=== PATIENT | female | born 2000 | race Caucasian/White ===

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

== ENCOUNTER 2019-04-05 16:55 | Emergency (ER) | payer MEDICAID, SELFPAY ==
[2019-04-05 16:56] VITALS: BP 145/69; PULSE 104; RESP 16; TEMP 36.9; O2SAT 98; BMI 25.9
--- NOTE | 2019-04-05 17:13 | CT_ITS ---
STUDY: CT ABDOMEN AND PELVIS WITHOUT CONTRAST REASON FOR EXAM: Female, 19 years old. Low abdominal/pelvic pain. Elevated white blood cell count. RADIATION DOSAGE (If Supplied By Facility): CTDIvol = ( 6.69 ) mGy, DLP = ( 344.48 ) mGycm TECHNIQUE: Transaxial images were obtained from the dome of the diaphragm to the symphysis pubis without oral contrast, and without intravenous contrast. Sagittal and coronal images were reconstructed. Individualized dose optimization techniques were used for this CT. COMPARISON: CT abdomen and pelvis with IV contrast December 11, 2014. FINDINGS: The visualized lung bases are unremarkable. The visualized portions of the heart are within normal limits. Normal liver. The portal vein diameter is 13.5 mm. Normal gallbladder and extrahepatic biliary system. There is borderline splenomegaly, measuring 13.15 x 5.7 x 1.4 cm. Normal pancreas. Normal bilateral adrenal glands. Normal right kidney. Normal left kidney. No hydronephrosis. Normal visualized stomach. Normal small intestine. Normal colon. The appendix is visualized and appears normal. There are numerous nonspecific mesenteric lymph nodes. Normal abdominal aorta. Normal inferior vena cava. Normal retroperitoneum. Normal urinary bladder. Normal visualized uterus. The right ovary/adnexa is mildly larger than the left, but no defined mass is evident. Normal abdominal wall. Normal osseous structures. CT/Abdomen/Pelvis without Cont IMPRESSION: Borderline splenomegaly, unchanged. Otherwise, normal unenhanced CT of the abdomen and pelvis. Electronically Signed: Pan Hunt MD at 19:12 EDT , Service support ,
[2019-04-05] MEDS: 0.9% Normal Saline 1,000 ML 125 ML IV (17:26)
[2019-04-05 17:30] VITALS: RESP 16
[2019-04-05 17:38] LABS: Absolute Lymphocyte Count 2.26 X10^3/uL (0.83-4.51); Absolute Neutrophil Count 8.8 X10^3/uL (2.0-7.7); Basophil# 0.06 X10^3/uL; Basophil% 0.5 % (0-1); Eosinophil# 0.53 X10^3/uL; Eosinophils% 4.1 % (0-5); Hematocrit 36.7 % (37-47); Hemoglobin 11.9 g/dL (12.0-15.0); Lymphocyte # 2.26 X10^3/ul (4.0); Lymphocyte % 17.5 % (19-41); Mean Corp Hgb Conc 32.4 g/dL (32-36); Mean Corpuscular Hgb 28.8 pg (27.0-32.0); Mean Corpuscular Volume 88.9 fL (81-99); Mean Platelet Vol. 12.1 fl (6.2-12.0); Monocyte# 1.24 X10^3/uL; Monocyte% 9.6 % (0-10); NRBC Flagged by Analyzer 0 % (0-5); Neutrophil # 8.78 X10^3/uL (2.7-7.7); Neutrophil % 67.8 % (47-70); Platelet Count 159 K/mm3 (150-450); RBC Distribution Width CV 13.4 % (11.6-14.6); RBC Distribution Width SD 43.6 fl (35.1-43.9); Red Blood Count 4.13 M/mm3 (4.2-5.4); White Blood Count 12.9 K/mm3 (4.4-11.0)
[2019-04-05 17:45] LABS: Anion Gap 4 (5-15); BUN 7 mg/dL (7-18); BUN/Creat Ratio 9.4 RATIO (10-20); Calcium,Total 8.7 mg/dL (8.5-10.1); Chloride 110 mmol/L (98-107); Creatinine, Serum 0.74 mg/dL (0.55-1.02); EST Glomerular Filtration Rate 105 mL/min (>60); Est Glom Filt Rate - Afr Amer 128 mL/min (>60); Estimated Creatinine Clearance 100.32 ml/min; Glucose 86 mg/dL (74-106); Potassium 3.7 mmol/L (3.5-5.1); Sodium Level 140 mmol/L (136-145)
--- NOTE | 2019-04-05 18:17 | ED.DCSUM_ITS ---
- ER Visit Summary Date of Service: 04/05/19 Chief Complaint: [Abdominal pain] History of Present Illness: The patient is a 19 F [the emergency department with continuous abdominal pain for about a week. Patient describes pain in his lower abdomen and severe at times. She has had some hematuria yesterday. Patient complains of pressure to the lower abdomen. She does not believe that she is given that she has implantable control in her arm. Patient last menstrual period was about a month ago. She denies any fever. She had nausea but no vomiting. She denies any diarrhea. She denies any blood in her stool or black tarry stool. States the pain radiates to the back.] Denies any abnormal vaginal discharge. Physical Examination: [HEENT-PERRLA, EOMI. Cranial nerves II through XII grossly intact. TMs clear. Mucous membranes moist. No adenopathy. Cardiovascular-regular rate and rhythm without murmur or ectopy Lungs-clear to auscultation, chest wall stable without crepitus or subcu emphysema Abdomen-normoactive bowel sounds, soft. Patient has tenderness diffusely to the lower abdomen right lower quadrant suprapubic and left lower quadrant. Patient has bilateral CVA tenderness on exam. Skin exam-patient has some patchy discoloration loss of pigment to the upper arms and chest that she is had for about a year since being . Extremities-intact ?4, normal range of motion, normal pulses, atraumatic] Test Results: [CBC with differential obtained showed a slightly elevated white blood cell count of 12.9, hemoglobin 11.9, hematocrit 37, plates 159. Chemistries unremarkable.] hCG was unremarkable. CT flank showed nothing acute. Urinalysis was positive for 500 leukocyte esterase and greater than 100 WBCs as well as +3 bacteria. Emergency Department Course and Treatment: [She received 1 g of Rocephin IV.] Treatment Plan: [She will be treated with Bactrim and Pyridium. I will write her for nystatin cream as I suspect she may have tinea versicolor versus possible vitiligo. Patient will be referred to a architecture professor.] Disposition: [Discharged home in stable condition.] Impression: [UTI Dermatitis-tinea versus vitiligo] This note was generated with [employer] software. It may contain incorrect words, spelling, and punctuation that were not noted in review of the chart prior to signing ED Disposition - Plan for ED Patient: Referrals: Care Physician,No Primary [Primary Care Provider] -
[2019-04-05 18:29] LABS: Internal QC Validated? YES +Cl - CLEAR BKGD; Pregnancy, Serum, hCG Quali. NEGATIVE Negative
[2019-04-05 18:50] LABS: Mucous, Urine 0 SEEN /hpf (<or=2+)
[2019-04-05 18:52] LABS: Color, Urine Yellow (Yellow); Glucose, Dipstick Normal (Normal); Ketone-Dipstick Negative (Negative); Leukocyte Esterase-Dipstick 500 /ul (Negative); Nitrite-Dipstick Negative (Negative); Occult Blood-Urine 50 /ul (Negative); Protein-Dipstick 30 mg/dl (Negative); Urine Bilirubin Dipstick Negative (Negative); Urine Clarity Cloudy (Clear); Urine Urobilinogen Normal (Normal)
[2019-04-05 19:17] VITALS: BP 100/69; PULSE 88; RESP 16; O2SAT 95
[2019-04-05 19:19] LABS: White Blood Cells >100 SEEN /hpf (0-5)
[2019-04-05 19:20] LABS: Red Blood Cells-Urine 5-10 SEEN /hpf (0-5); Squamous Epithelial Cells - UA 25-50 SEEN /hpf (5-10)
[2019-04-05 19:21] LABS: Bacteria 3+ /hpf (None Seen)
--- NOTE | 2019-04-05 19:41 | ED.DEP ---
ED Disposition - Plan for ED Patient: Instructions: Bladder Infection, Female (Adult), Tinea Versicolor Prescriptions: Smz/Tmp Ds [Bactrim Ds] 1 tab PO BID #10 tab Prescription Printed Nystatin/Triamcin [Nystatin-Triamcinolone Ointm] 60 gm TP BID #1 oint...g. Prescription Printed Phenazopyridine HCl [Pyridium] 200 mg PO BID PRN PRN #10 tab PRN Reason: Pain Prescription Printed Referrals: Care Physician,No Primary [Primary Care Provider] - Isaiah Marti MD [STAFF PHYSICIAN] - 5-7 Days Martín Butt MD [STAFF PHYSICIAN] - 5-7 Days
[2019-04-05] MEDS: Smz/Tmp Ds Tablet 1 TABLET PO (19:58)
[2019-04-05] MEDS: Phenazopyridine 95 MG Tablet 190 MG PO (19:59)
[2019-04-05 20:00] VITALS: BP 107/63; PULSE 104; O2SAT 98
== END 2019-04-05 20:07 | disposition home or self-care (01) ==
PROVIDERS: Emergency Provider Emergency Medicine
DX: N39.0 Urinary tract infection, site not specified (principal); B36.0 Pityriasis versicolor
CPT/HCPCS: 74176; 80048; 81001; 84703; 85025; 96360; 96361; 99285; J7030

== ENCOUNTER 2019-11-28 14:39 | Emergency (ER) | payer MEDICAID, SELFPAY ==
[2019-11-28 14:40] VITALS: BP 115/75; PULSE 117; RESP 16; TEMP 36.6; O2SAT 97; BMI 24.7
--- NOTE | 2019-11-28 14:55 | ED.DCSUM_ITS ---
- ER Visit Summary Date of Service: 11/28/19 Chief Complaint: Axillary abscess History of Present Illness: The patient is a 19 F who presents with a lump in her right axilla. She states that she has had a lump there but today it was painful. She got some drainage out of it. It was white. It is painful when she moves her arm. She denies a fever. She has no history of abscesses in the past. She has no other medical problems. Physical Examination: Vital signs are reviewed. Right axilla shows a 1.5 x 1 cm abscess. It is fluctuant. There is no surrounding erythema. She has full range of motion of the arm. Rest of the physical exam is unremarkable Test Results: None performed Emergency Department Course and Treatment: Patient had incision and drainage of the abscess. The area was cleansed with chlorhexidine. 3 cc of lidocaine with epinephrine was used in a field block. A cruciate incision was made over the dome of the abscess. Mild purulent drainage returned. Loculations were broken up. A bloody drainage then returned after this. Treatment Plan: Patient will have a dressing placed on the wound. I will give her Bactroban cream to place on this area. She will keep the area clean and dry and will follow up with her doctor Disposition: Discharge Impression: Right axillary abscess, 1.5 x 1 cm I&D by ED physician This note was generated with [employer] dictation software. It may contain incorrect words, spelling, and punctuation that were not noted in review of the chart prior to signing ED Disposition - Plan for ED Patient: Disposition: Home or Assisted Living Instructions: ED Abscess Incision And Drainage Prescriptions: Mupirocin [Bactroban] 1 applic TOPICAL BID #1 tube Transmission Status: Pending to [facility] #30 Referrals: Care Physician,No Primary [Primary Care Provider] -
== END 2019-11-28 15:12 | disposition home or self-care (01) ==
LOC: ED 15:02
PROVIDERS: Emergency Provider Emergency Medicine
DX: L02.411 Cutaneous abscess of right axilla (principal); Z72.0 Tobacco use
CPT/HCPCS: 10060; 99283

== ENCOUNTER 2019-11-29 13:40 | Emergency (ER) | payer MEDICAID, SELFPAY ==
[2019-11-28 14:40] VITALS: BMI 24.7
[2019-11-29 13:41] VITALS: BP 127/65; PULSE 72; PULSE 88; RESP 15; TEMP 36.7; O2SAT 98; BMI 26.0
--- NOTE | 2019-11-29 14:06 | ED.VIS.GEN ---
History of Present Illness Chief Complaint: Abscess Informant: Patient Onset: Days Context: Gradual Onset Current Severity: Moderate Maximum Severity: Moderate Narrative: Patient presents for abscess to the right axilla. She was seen yesterday and had an I&D performed. She was given Bactroban ointment to place topically. Patient presents back today stating that she has not noted any improvement in it. She is requesting a work note for today. She denies fever or chills. She is using warm compresses. - Past Medical History (1) Depression with anxiety Status: Chronic (2) ADHD Status: Chronic (3) Asthma Status: Chronic Past Medical History - Allergies and Home Meds Allergies/Adverse Reactions: Allergies No Known Allergies Allergy (Verified 11/29/19 13:40) Primary Care Physician: Care Physician,No Primary [Primary Care Provider] - Prior records reviewed: Yes Smoking Status: Current every day smoker Review of Systems General: Denies: Chills, Fever Eyes: Denies: Visual changes - bilaterally ENT: Denies: Bilateral ear pain Cardiovascular: Denies: Chest pain Respiratory: Denies: Dyspnea, Cough Gastrointestinal: Denies: Abdominal pain, Nausea, Vomiting, Diarrhea Musculoskeletal: Reports: Swelling Skin: Reports: Abscess Neurological: Denies: Headache Hematologic: Denies: Easy bruising, Easy bleeding Allergy: Denies: Uticaria Physical Exam Vital Signs/Narrative: Vital Signs Temp Pulse Resp BP Pulse Ox 11/29/19 13:41 98.1 F 88 15 127/65 H 98 General: Well nourished ENT: Moist mucous membranes Neck: Supple Cardiovascular: Regular rate, Regular rhythm Respiratory: No distress, CTA bilaterally Abdomen: Soft, Nontender Skin: - - 1.5 x 2 cm cutaneous abscess right axilla. There is spontaneous drainage of serosanguineous fluid. No overlying skin changes. Neurological: Alert, Oriented x3 Psychological: Normal affect Diagnostic/Tx/Re-eval - Medical Decision Making Although the patient's medication list does report that she is taking oral Bactrim she denies that she is taking oral antibiotics. She is using the topical Bactroban ointment only. She is advised to continue using warm compresses. I will cover her with Bactrim and Keflex to try to encourage the abscess to drain. ED Disposition - Plan for ED Patient: Disposition: Home or Assisted Living Diagnosis: Cutaneous abscess Instructions: ED Abscess Antibiotic Treatment Only Prescriptions: Smz/Tmp Ds [Bactrim Ds] 1 tab PO BID #20 tab Transmission Status: Pending to [facility] #30 Cephalexin [Keflex] 500 mg PO Q6 #40 cap Transmission Status: Pending to [facility] #30 Referrals: Nate Prater DO [NON CLINICAL AFFILIATE] - 1 Week
[2019-11-29] MEDS: Smz/Tmp Ds Tablet 1 TABLET PO (14:15)
[2019-11-29] MEDS: Cephalexin 250 MG Capsule 500 MG PO (14:15)
== END 2019-11-29 14:28 | disposition home or self-care (01) ==
LOC: ED 14:20
PROVIDERS: Emergency Provider Emergency Medicine
DX: L02.411 Cutaneous abscess of right axilla (principal); J45.909 Unspecified asthma, uncomplicated; F90.9 Attention-deficit hyperactivity disorder, unspecified type; F41.8 Other specified anxiety disorders; F17.210 Nicotine dependence, cigarettes, uncomplicated; Z79.899 Other long term (current) drug therapy
CPT/HCPCS: 99283

== ENCOUNTER 2020-01-08 11:31 | Emergency (ER) | payer MEDICAID, SELFPAY ==
[2020-01-08 11:32] VITALS: BP 128/77; PULSE 88; RESP 16; TEMP 36.8; O2SAT 96; BMI 23.1
--- NOTE | 2020-01-08 11:42 | RAD_ITS ---
STUDY: X-RAY - RIGHT HAND, ATTENTION 5 FINGER REASON FOR EXAM: Female, 19 years old. PT SLAMMED PINKY IN CAR DOOR, SWELLING TECHNIQUE: 3 view(s) of the finger were obtained. COMPARISON: None. FINDINGS: Normal metacarpal head. Normal metacarpophalangeal joint. Normal proximal phalanx. Normal middle phalanx. There is a subtle nondisplaced corner fracture on the volar side of the distal phalanx with soft tissue edema. Normal proximal interphalangeal joint. Normal distal interphalangeal joint. RAD/Finger(s) Min 2 Views IMPRESSION: There is a subtle nondisplaced corner fracture on the volar side of the distal phalanx with soft tissue edema. Electronically Signed: Grace Richey MD at 13:43 EDT Tel , Service support ,
--- NOTE | 2020-01-08 11:43 | RAD_ITS ---
STUDY: X-RAY CHEST REASON FOR EXAM: Female, 19 years old. COUGH, FEVER, BODY ACHES X 1 WEEK TECHNIQUE: Single AP portable view of the chest. COMPARISON: 07/26/2016 chest x-ray FINDINGS: The lungs are clear and expanded. There is no demonstrated pleural abnormality. Normal size heart. Normal mediastinum and kevin. Normal visualized pulmonary arteries. Normal visualized aortic arch and descending thoracic aorta. Normal visualized thoracic spine. Normal visualized ribs, clavicles, and shoulders. There is no demonstrated abnormality of the visualized soft tissue structures of the upper abdomen. RAD/Chest 1 View (Portable) IMPRESSION: Normal x-ray examination of the chest. Electronically Signed: Grace Richey MD at 13:35 EDT Tel , Service support ,
--- NOTE | 2020-01-08 11:43 | ED.VIS.GEN ---
History of Present Illness Chief Complaint: Upper Extremity Injury Onset: Yesterday Context: Sudden Onset - Accidentally slammed in car door Timing: Continuous Quality: Sore Location: Right pinky finger Current Severity: Moderate Maximum Severity: Severe Worsened by: Moving, palpating Relieved by: Remaining still and leaving it alone Narrative: Patient states she is here for her right small finger injury in addition to respiratory illness. She states for 1 week, she has had cough, subjective fevers and chills, myalgias, headaches, sore throat mostly from coughing, and shortness of breath for the entire week. The shortness of breath is not necessarily worsening, but it is not improving. It does feel like wheezing when she has it. States that she had asthma as a child but does not have any major issues with it. She did lose her sense of smell early on in the illness, but states that has recovered. She has not been tested for coronavirus or had contact with anyone that she knows of that has been infected with it, but she does present during the national coronavirus emergency declaration/pandemic. - Past Medical History (1) Asthma Status: Chronic (2) Depression with anxiety Status: Chronic (3) ADHD Status: Chronic Past Medical History - Allergies and Home Meds Allergies/Adverse Reactions: Allergies No Known Allergies Allergy (Verified 01/08/20 11:34) Primary Care Physician: Care Physician,No Primary [Primary Care Provider] - Smoking Status: Current every day smoker Review of Systems General: Reports: Fever, Malaise, Subjective. Denies: Chills, Sweats Eyes: Denies: Visual changes - bilaterally, Diplopia ENT: Reports: Rhinorrhea - And congestion, which is improved now, Sore throat. Denies: Bilateral ear pain Cardiovascular: Denies: Chest pain, Palpitations Respiratory: Reports: Dyspnea, Cough, Sputum - Occasional mild amounts of clear sputum. Denies: Orthopnea Gastrointestinal: Reports: Nausea. Denies: Abdominal pain, Vomiting, Diarrhea, Melena, Hematochezia Genitourinary: Denies: Dysuria, Hematuria, Frequency Musculoskeletal: Reports: Myalgias, Back pain. Denies: Neck pain, Swelling Skin: Denies: Rash, Wounds Neurological: Reports: Headache. Denies: Weakness, Parasthesia, Numbness Physical Exam Vital Signs/Narrative: Vital Signs Temp Pulse Resp BP Pulse Ox 01/08/20 11:32 98.2 F 88 16 128/77 H 96 Inital Vital Signs reviewed: Yes General: Well nourished, Well developed, No Acute Distress - Conversive in full sentences Head: Normocephalic, Atraumatic Eyes: Perrl, EOMI ENT: Moist mucous membranes, No rhinorrhea, TM's clear. Negative for: Sinus tenderness Neck: Supple, Nontender Cardiovascular: Regular rate, Regular rhythm, No murmurs Respiratory: No distress, Chest nontender, Wheezing - slight basilar inspiratory wheezes. Negative for: Rales, Rhonchi Abdomen: Soft, Nontender, Nondistended, Normal bowel sounds Back: Nontender, Normal Inspection. Negative for: CVA tenderness Extremities: Nontender, No edema Skin: Normal color, No rash, No Trauma Neurological: Alert, Oriented x3, Cranial nerves II-XII grossly intact, Normal Strength, Normal Sensation, Normal Gait Psychological: Normal affect, Normal Mood Diagnostic/Tx/Re-eval - Medical Decision Making On my interpretation, 1 view chest x-ray is normal. On my interpretation, 3 view x-ray of the right little finger is normal. Her fingers were ashley taped, she was given an ice pack, ibuprofen, and we sent off a COVID-19 swab. And appropriate instructions for quarantine until her test results return. ED Disposition - Plan for ED Patient: Disposition: Home or Assisted Living Diagnosis: Viral URI, Contusion of right little finger without damage to nail, initial encounter Instructions: ED CONTUSION Finger, ED URI Viral Prescriptions: Albuterol Inhaler [Ventolin Hfa] 1 - 2 puff INHALATION Q4H PRN PRN #1 inhaler PRN Reason: Wheezing Transmission Status: Pending to [facility] #30 Referrals: Doctor,Your [STAFF PHYSICIAN] - As Needed Additional Instructions: You were tested for COVID-19, however it is sent to an offsite laboratory, and will likely take a couple days to come back. When the results return you should receive a call from the emergency department. Reference the pamphlet including with your discharge papers for information on setting up an online portal account to check the results yourself.
[2020-01-08] MEDS: Ibuprofen 600 MG Tablet PO (12:27)
[2020-01-08 16:06] LABS: Probe Check PASS; Specimen Processing Control PASS
== END 2020-01-08 12:31 | disposition home or self-care (01) ==
LOC: ED 12:22
PROVIDERS: Emergency Provider Emergency Medicine
DX: S60.051A Contusion of right little finger without damage to nail, initial encounter (principal); W23.0XXA Caught, crushed, jammed, or pinched between moving objects, initial encounter; Y93.9 Activity, unspecified; Y92.9 Unspecified place or not applicable; J06.9 Acute upper respiratory infection, unspecified; J45.909 Unspecified asthma, uncomplicated; F17.200 Nicotine dependence, unspecified, uncomplicated
CPT/HCPCS: 71045; 73140; 87635; 99283; U0003

== ENCOUNTER 2020-09-27 15:36 | Emergency (ER) | payer MEDICAID, SELFPAY ==
[2020-09-27 15:37] VITALS: BP 142/80; PULSE 92; RESP 14; TEMP 36.3; O2SAT 99; BMI 24.5
--- NOTE | 2020-09-27 16:31 | EKG12_ITS ---
Test Reason : GENERAL Blood Pressure : / mmHG Vent. Rate : 055 BPM Atrial Rate : 055 BPM P-R Int : 144 ms QRS Dur : 088 ms QT Int : 406 ms P-R-T Axes : 058 089 068 degrees QTc Int : 388 ms Sinus bradycardia with sinus arrhythmia Otherwise normal ECG Confirmed by MANE CLEMONS, FELICIA ([id number]), marketing editor LIDIA GARCIA ([id number]) on 09/29/2020 8:11:49 AM Referred By: AVI Confirmed By:GRAYSON GILLIAM MD
--- NOTE | 2020-09-27 16:31 | ED.VIS.GEN ---
History of Present Illness Chief Complaint: General Illness Informant: Patient Narrative: 20-year-old female presenting with chest pain which is intermittent over the last 3 days. She also complains of some mild shortness of breath and a cough. She has body aches and loss of smell with nasal burning with inhalation. She does not state that she has lost her sense of taste. She has a decreased appetite. She was exposed to her aunt about 7 days ago who was tested for COVID-19 and states that she had 5 of the symptoms of Covid. Patient states he has not checked to see if she had a fever at home. She states that she has a family history of HOCM but she does not have this. She has not been syncopal or near syncopal. Patient was sent to the ER due to family history of HOCM. Patient herself denies any medical problems set for asthma. She states she is not on control and she has no concern for and is not sexually active. She has no urinary complaints. She is making normal urine and stool. Past Medical History - Allergies and Home Meds Allergies/Adverse Reactions: Allergies No Known Allergies Allergy (Verified 09/27/20 15:39) Primary Care Physician: Care Physician,No Primary [Primary Care Provider] - Past Medical History: - - Asthma Surgical History: noncontributory Lives: Alone Smoking Status: Current every day smoker Alcohol: None Drugs: None Review of Systems General: Reports: Chills, Malaise, Subjective Eyes: Denies: Visual changes - bilaterally, Diplopia ENT: Reports: - - Loss of smell. Denies: Rhinorrhea, Sore throat Cardiovascular: Reports: Chest pain. Denies: Palpitations, Heart racing Respiratory: Reports: Dyspnea, Cough Gastrointestinal: Denies: Abdominal pain, Nausea, Vomiting Genitourinary: Denies: Dysuria, Hematuria Musculoskeletal: Reports: Myalgias. Denies: Arthralgias, Neck pain Skin: Denies: Rash, Abscess Neurological: Reports: Headache. Denies: Weakness, Parasthesia, Numbness Psych: Denies: Depression, Anxiety Physical Exam Vital Signs/Narrative: Vital Signs Temp Pulse Resp BP Pulse Ox 09/27/20 15:37 97.3 F L 92 14 142/80 H 99 Inital Vital Signs reviewed: Yes General: Well nourished, No Acute Distress Head: Normocephalic, Atraumatic Eyes: Perrl, EOMI ENT: Moist mucous membranes, TM's clear, Sinus tenderness Neck: Supple, Nontender Cardiovascular: Regular rate, Regular rhythm Respiratory: No distress, CTA bilaterally, Chest nontender Extremities: Nontender, No edema Skin: Normal color, No rash. Negative for: Cyanosis, Diaphoresis, Pallor Neurological: Alert, Oriented x3, Cranial nerves II-XII grossly intact Psychological: Normal affect, Normal Mood Diagnostic/Tx/Re-eval Clinical Impression(s) from Imaging Studies Chest X-Ray 09/27/20 16:50 IMPRESSION: No acute radiographic abnormalities. Electronically Signed: Shawn Lai MD at 17:24 EDT Tel , Service support , Laboratory Data 09/27/20 09/27/20 09/27/20 16:54 16:54 16:54 WBC 9.5 RBC 4.95 Hgb 14.1 Hct 45.0 MCV 90.9 MCH 28.5 MCHC 31.3 L RDW Std Deviation 42.7 RDW Coeff of Melchor 12.7 Plt Count 198 MPV 12.2 H Immature Gran % (Auto) 0.200 Neut % (Auto) 51.4 Lymph % (Auto) 36.2 [place] % (Auto) 5.3 Eos % (Auto) 6.4 H Baso % (Auto) 0.5 Absolute Neuts (auto) 4.9 Absolute Lymphs (auto) 3.43 Nucleated RBC % 0 D-Dimer Quant (PE/DVT) <= 0.27 Sodium 139 Potassium 3.7 Chloride 105 Carbon Dioxide 30.0 Anion Gap 4 L BUN 9 Creatinine 0.89 Estim Creat Clear Calc 86.34 Est GFR (MDRD) Af Amer 103 Est GFR (MDRD) Non-Af 85 BUN/Creatinine Ratio 10.2 Glucose 73 L Calcium 9.3 Total Bilirubin 0.30 AST 8 L ALT 19 Alkaline Phosphatase 69 Total Protein 7.2 Albumin 4.0 Globulin 3.2 Albumin/Globulin Ratio 1.2 Procalcitonin 09/27/20 16:54 WBC RBC Hgb Hct MCV MCH MCHC RDW Std Deviation RDW Coeff of Melchor Plt Count MPV Immature Gran % (Auto) Neut % (Auto) Lymph % (Auto) [place] % (Auto) Eos % (Auto) Baso % (Auto) Absolute Neuts (auto) Absolute Lymphs (auto) Nucleated RBC % D-Dimer Quant (PE/DVT) Sodium Potassium Chloride Carbon Dioxide Anion Gap BUN Creatinine Estim Creat Clear Calc Est GFR (MDRD) Af Amer Est GFR (MDRD) Non-Af BUN/Creatinine Ratio Glucose Calcium Total Bilirubin AST ALT Alkaline Phosphatase Total Protein Albumin Globulin Albumin/Globulin Ratio Procalcitonin < 0.01 - Medical Decision Making Presenting with viral syndrome however she has stated she is having chest pain. EKG performed on arrival is sinus rhythm at 55 bpm without signs of ischemic change as interpreted by myself. Patient is PERC negative however given concern for Covid I will check a D-dimer. Chest x-ray as interpreted by myself shows no acute cardiopulmonary process. Radiology does agree. Blood work thus far is unremarkable and include CBC, CMP, troponin. D-dimer is pending. 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 She states she has to leave [facility]. Patient counseled that I do not have all of her results back. She will sign AMA paperwork she understands that she may have , disability, poor outcome should there be abnormal findings. She acknowledges understanding. She was able to sign paperwork prior to leaving. Patient's lab work-up mainly was unremarkable. Her D-dimer was negative. Her Covid 19 antigen was negative. Cardiac enzymes were normal. I Impression: 1. Chest pain 2. Viral syndrome ED Disposition - Plan for ED Patient: Disposition: Home or Assisted Living Instructions: Coronavirus Disease 2019 (COVID-19): Overview, Coronavirus Disease 2019 (COVID-19): Caring for Yourself or Others, ED Chest Pain, Uncertain Cause Referrals: Care Physician,No Primary [Primary Care Provider] -
--- NOTE | 2020-09-27 16:50 | RAD_ITS ---
INDICATION: cough EXAMINATION/TECHNIQUE: X-RAY - XR Chest 1 View COMPARISON: 01/08/2020. FINDINGS: The lungs are clear. The cardiomediastinal silhouette is unremarkable. No pleural effusion or pneumothorax. No acute osseous abnormalities. RAD/Chest 1 View (Portable) IMPRESSION: No acute radiographic abnormalities. Electronically Signed: Shawn Lai MD at 17:24 EDT Tel , Service support ,
[2020-09-27 17:14] LABS: Absolute Lymphocyte Count 3.43 X10^3/uL (0.83-4.51); Absolute Neutrophil Count 4.9 X10^3/uL (2.0-7.7); Basophil# 0.05 X10^3/uL; Basophil% 0.5 % (0-1); Eosinophil# 0.61 X10^3/uL; Eosinophils% 6.4 % (0-5); Hemoglobin 14.1 g/dL (12.0-15.0); Lymphocyte # 3.43 X10^3/ul (0.83-4.51); Lymphocyte % 36.2 % (19-41); Mean Corp Hgb Conc 31.3 g/dL (32-36); Mean Corpuscular Hgb 28.5 pg (27.0-32.0); Mean Corpuscular Volume 90.9 fL (81-99); Mean Platelet Vol. 12.2 fl (6.2-12.0); Monocyte% 5.3 % (0-10); NRBC Flagged by Analyzer 0 % (0-5); Neutrophil # 4.86 X10^3/uL (2.7-7.7); Neutrophil % 51.4 % (47-70); Platelet Count 198 K/mm3 (150-450); RBC Distribution Width CV 12.7 % (11.6-14.6); RBC Distribution Width SD 42.7 fl (35.1-43.9); Red Blood Count 4.95 M/mm3 (4.2-5.4); White Blood Count 9.5 K/mm3 (4.4-11.0)
[2020-09-27 17:29] LABS: ALB/GLOB Ratio 1.2 RATIO (0.9-2.4); AST(SGOT) 8 U/L (15-37); Alanine Aminotransfer ALT/SGPT 19 U/L (13-56); Alkaline Phosphatase 69 U/L (45-117); Anion Gap 4 (5-15); BUN 9 mg/dL (7-18); BUN/Creat Ratio 10.2 RATIO (10-20); Calcium,Total 9.3 mg/dL (8.5-10.1); Chloride 105 mmol/L (98-107); Creatinine, Serum 0.89 mg/dL (0.55-1.02); EST Glomerular Filtration Rate 85 mL/min (>60); Est Glom Filt Rate - Afr Amer 103 mL/min (>60); Estimated Creatinine Clearance 86.34 ml/min; Globulin 3.2 g/dL (2.2-4.2); Glucose 73 mg/dL (74-106); Potassium 3.7 mmol/L (3.5-5.1); Protein, Total 7.2 g/dL (6.4-8.2); Sodium Level 139 mmol/L (136-145)
[2020-09-27 17:43] LABS: D-Dimer Quantitative (DVT/PE) <= 0.27 FEU/ug/m (0.27-0.49)
[2020-09-27 17:44] LABS: Procalcitonin < 0.01 ng/mL (0.00-0.09)
--- NOTE | 2020-09-27 17:48 | ED.RN ---
pt signed ama. aware covid is negative.
[2020-09-27 17:49] VITALS: PULSE 62; RESP 18
== END 2020-09-27 17:49 | disposition home or self-care (01) ==
PROVIDERS: Emergency Provider Student in an Organized Health Care Education/Training Program
DX: R07.89 Other chest pain (principal); B34.9 Viral infection, unspecified; R06.00 Dyspnea, unspecified; R05 Cough; R51.9 Headache, unspecified; M79.10 Myalgia, unspecified site; R43.9 Unspecified disturbances of smell and taste; J45.909 Unspecified asthma, uncomplicated; F17.200 Nicotine dependence, unspecified, uncomplicated
CPT/HCPCS: 71045; 80053; 84145; 85025; 85379; 87040; 87426; 93005; 99284

== ENCOUNTER 2020-10-18 15:52 | Emergency (ER) | payer MEDICAID, SELFPAY ==
[2020-10-18 15:53] VITALS: BP 118/63; PULSE 70; RESP 14; TEMP 36.7; O2SAT 98; BMI 23.7
--- NOTE | 2020-10-18 16:18 | EDS_ITS ---
HPI HPI - Female History of Present Illness Chief Complaint: Vag Bld, Preg Informant: patient Pain Pain: Positive for Pelvic Pain Timing: Waxes and wanes Quality: Positive for Cramping Location: Suprapubic Worsened by: - (Nothing) Relieved by: - Bleeding Issue: Positive for Vaginal bleeding Onset: Days (2) Context: Gradual Onset Timing: Waxes and wanes Current Severity: Spotting Associated Symptoms Associated Symptoms: Positive for Frequency; Negative for Dysuria Test: Positive Sexually: Positive for Active Control: No control PFSH PFSH Home Medications NK 10/18/20 [History Last Taken Unknown] Allergy/AdvReac Type Severity Reaction Status Date / Time No Known Allergies Allergy Verified 10/18/20 15:53 Surgical History (Updated 10/18/20 @ 16:[address] Luis Armando Becerril DO) History of tonsillectomy Social History Smoking Status: Current every day smoker ROS ROS ED Constitutional Constitutional ED: Denies chills or fever(s) Eyes Eyes: Denies blurry vision or change in vision ENT ENT ED: Denies rhinorrhea or sore throat Cardiovascular Cardiovascular: Denies chest pain or palpitations Respiratory/Chest Respiratory/Chest: Denies cough or dyspnea Gastrointestinal Gastrointestinal: Reports nausea and vomiting Genitourinary Genitourinary ED: Reports urinary frequency; Denies dysuria Integumentary Denies abscess or rash Neurologic Neurologic: Denies headache(s) or weakness Allergic/Immunologic Allergic/Immunologic ED: Denies mouth swelling or urticaria EXAM Physical Exam Const Vital Signs: 10/18/20 15:53 Temperature 98.0 F Temperature Source Temporal Pulse Rate 70 Respiratory Rate 14 Blood Pressure 118/63 Blood Pressure Mean 81 Pulse Ox 98 Oxygen Delivery Method Room Air Positive well nourished and well developed General Appearance ED: well developed HEENT Reports moist mucous membranes Neck supple and no JVD Resp normal respiratory effort and clear to auscultation bilaterally Cardio regular rate and regular rhythm GI normal to inspection, nondistended, normoactive bowel sounds and soft to palpation Palpation: tender suprapubic; Negative for guarding Extremity normal to inspection and full ROM General Extremety ED: Negative for edema or tenderness General Extremity: Negative for edema Neuro oriented x3, CN's II-XII intact bilaterally and no sensory deficits noted Sensorium / Orientation: alert Motor Exam: strength 5/5 throughout MDM MDM MDM Narrative Medical decision making narrative: Urinalysis shows leukocyte esterase of 100 with 10-25 epithelial cells. There is no evidence of urinary tract infection. Quantitative hCG was negative. Patient was advised of her findings. Patient was instructed to follow-up with her primary care physician in 5 to 7 days. Patient understood and was agreeable with the plan. All questions were answered. Lab Data Labs: Laboratory Results - last 24 hr 10/18/20 10/18/20 16:10 16:36 HCG, Quant < 1 Urine Color Yellow Urine Clarity Clear Urine pH 6.0 Ur Specific [place] 1.015 Urine Protein Negative Urine Glucose (UA) Normal Urine Ketones Negative Urine Occult Blood 50 H Urine Nitrite Negative Urine Bilirubin Negative Urine Urobilinogen Normal Ur Leukocyte Esterase 100 H Urine RBC 0-5 SEEN Urine WBC 0-5 SEEN Ur Squamous Epith Cells 10-25 SEEN Urine Bacteria RARE Urine Mucus 0 SEEN Discharge Plan Triage Chief Complaint: Vag Bld, Preg ED Provider: Luis Armando Becerril Dx/Rx/DC Orders Clinical Impression: Crampy pain associated with menses Instructions: ED MENSTRUAL CRAMPING Prescriptions: No Action NK RF: 0 Primary Care Provider: Care Physician,No Primary Referrals: Daniel Guerrero MD [STAFF PHYSICIAN] - 5-7 Days Care Physician,No Primary [Primary Care Provider] - Disposition Disposition: Home, self care
[2020-10-18 16:26] LABS: Mucous, Urine 0 SEEN /hpf (<or=2+)
[2020-10-18 16:29] LABS: Color, Urine Yellow (Yellow); Glucose, Dipstick Normal (Normal); Ketone-Dipstick Negative (Negative); Leukocyte Esterase-Dipstick 100 /ul (Negative); Nitrite-Dipstick Negative (Negative); Occult Blood-Urine 50 /ul (Negative); Protein-Dipstick Negative (Negative); Specific Gravity, Urine 1.015 (1.002-1.030); Urine Bilirubin Dipstick Negative (Negative); Urine Clarity Clear (Clear); Urine Urobilinogen Normal (Normal)
[2020-10-18 16:34] LABS: Bacteria RARE /hpf (None Seen); Red Blood Cells-Urine 0-5 SEEN /hpf (0-5); Squamous Epithelial Cells - UA 10-25 SEEN /hpf (5-10); White Blood Cells 0-5 SEEN /hpf (0-5)
[2020-10-18] MEDS: 0.9% Normal Saline 1,000 ML 1000 ML IV (16:59)
[2020-10-18 17:33] LABS: hCG Titer Quant., Serum < 1 mIU/mL (1-3)
[2020-10-18 18:01] VITALS: BP 120/54; PULSE 80; RESP 16; O2SAT 100
== END 2020-10-18 18:04 | disposition home or self-care (01) ==
PROVIDERS: Emergency Provider Emergency Medicine
DX: N94.6 Dysmenorrhea, unspecified (principal); F17.200 Nicotine dependence, unspecified, uncomplicated
CPT/HCPCS: 81001; 84702; 86900; 86901; 96360; 99282; J7030; A4216

== ENCOUNTER 2021-01-05 10:54 | Emergency (ER) | payer MEDICAID, SELFPAY ==
[2021-01-05 10:55] VITALS: BP 149/88; PULSE 98; RESP 16; TEMP 35.1; O2SAT 98; BMI 22.6
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
[2021-01-05] MEDS: 0.9% Normal Saline 1,000 ML 1000 ML IV (11:21)
[2021-01-05] MEDS: Ondansetron 4 MG/2 ML Vial IV (11:22)
[2021-01-05] MEDS: Ketorolac 30 MG/ML Syringe IV (11:22)
[2021-01-05 11:30] LABS: Absolute Lymphocyte Count 2.29 X10^3/uL (0.83-4.51); Absolute Neutrophil Count 8.5 X10^3/uL (2.0-7.7); Basophil# 0.06 X10^3/uL; Basophil% 0.5 % (0-1); Eosinophil# 0.22 X10^3/uL; Eosinophils% 1.9 % (0-5); Hematocrit 41.6 % (37-47); Hemoglobin 13.8 g/dL (12.0-15.0); Lymphocyte # 2.29 X10^3/ul (0.83-4.51); Mean Corp Hgb Conc 33.2 g/dL (32-36); Mean Corpuscular Hgb 29.7 pg (27.0-32.0); Mean Corpuscular Volume 89.5 fL (81-99); Mean Platelet Vol. 11.5 fl (6.2-12.0); Monocyte# 0.38 X10^3/uL; Monocyte% 3.3 % (0-10); NRBC Flagged by Analyzer 0 % (0-5); Neutrophil # 8.45 X10^3/uL (2.7-7.7); Neutrophil % 73.9 % (47-70); Platelet Count 214 K/mm3 (150-450); RBC Distribution Width CV 12.3 % (11.6-14.6); RBC Distribution Width SD 40.5 fl (35.1-43.9); Red Blood Count 4.65 M/mm3 (4.2-5.4); White Blood Count 11.5 K/mm3 (4.4-11.0)
[2021-01-05 11:37] LABS: Internal QC Validated? YES +Cl - CLEAR BKGD; Pregnancy, Serum, hCG Quali. NEGATIVE Negative
[2021-01-05 11:48] LABS: AST(SGOT) 17 U/L (15-37); Alanine Aminotransfer ALT/SGPT 22 U/L (13-56); Albumin, Serum 4.1 g/dL (3.2-5.0); Alkaline Phosphatase 65 U/L (45-117); Anion Gap 4 (5-15); BUN 8 mg/dL (7-18); BUN/Creat Ratio 8.7 RATIO (10-20); Bilirubin, Direct 0.15 mg/dL (0.00-0.30); Calcium,Total 8.9 mg/dL (8.5-10.1); Chloride 114 mmol/L (98-107); Creatinine, Serum 0.92 mg/dL (0.55-1.02); EST Glomerular Filtration Rate 81 mL/min (>60); Est Glom Filt Rate - Afr Amer 99 mL/min (>60); Estimated Creatinine Clearance 83.53 ml/min; Globulin 3.2 g/dL (2.2-4.2); Glucose 96 mg/dL (74-106); Lipase 51 U/L (73-393); Potassium 3.4 mmol/L (3.5-5.1); Protein, Total 7.3 g/dL (6.4-8.2); Sodium Level 144 mmol/L (136-145)
[2021-01-05 12:16] LABS: Acetaminophen (Tylenol) Level < 2.0 ug/mL (10.0-30.0)
[2021-01-05 13:07] LABS: Bacteria 0 SEEN /hpf (None Seen); Mucous, Urine 0 SEEN /hpf (<or=2+); Red Blood Cells-Urine 0 SEEN /hpf (0-5)
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
[2021-01-05 13:14] LABS: Color, Urine Yellow (Yellow); Glucose, Dipstick Normal (Normal); Ketone-Dipstick 15 mg/dl (Negative); Leukocyte Esterase-Dipstick 25 /ul (Negative); Nitrite-Dipstick Negative (Negative); Occult Blood-Urine Negative /ul (Negative); Protein-Dipstick 15 mg/dl (Negative); Urine Bilirubin Dipstick Negative (Negative); Urine Clarity Clear (Clear); Urine Urobilinogen 1 mg/dl (Normal)
[2021-01-05 13:21] LABS: Squamous Epithelial Cells - UA 0-5 SEEN /hpf (5-10); White Blood Cells 0-5 SEEN /hpf (0-5)
[2021-01-05 13:27] LABS: Amphetamine Urine VISTA NEGATIVE (<1000 ng/mL); Barbiturate Urine VISTA NEGATIVE (< 200 ng/mL); Benzodiazepine Urine VISTA NEGATIVE (< 200 ng/mL); Cocaine Urine VISTA NEGATIVE (< 300 ng/mL); Ecstacy Urine VISTA NEGATIVE (< 500 ng/mL); Methadone Urine VISTA NEGATIVE (< 300 ng/mL); PCP Urine VISTA NEGATIVE (< 25 ng/mL); THC Urine VISTA POSITIVE (< 50 ng/mL); Vista UDS pH Range 6
[2021-01-05 14:02] VITALS: BP 85/45; PULSE 70; RESP 16
== END 2021-01-05 14:02 | disposition home or self-care (01) ==
PROVIDERS: Emergency Provider Emergency Medicine
DX: R11.2 Nausea with vomiting, unspecified (principal); R10.9 Unspecified abdominal pain; R51.9 Headache, unspecified; F17.210 Nicotine dependence, cigarettes, uncomplicated
CPT/HCPCS: 80048; 80076; 80307; 80329; 81001; 82077; 83690; 84703; 85025; 96361; 96374; 96375; 99283; J7030; A4216; G0480; J2405

== ENCOUNTER 2021-03-16 17:21 | Emergency (ER) | payer MEDICAID, SELFPAY ==
[2021-03-16 17:21] VITALS: BP 135/75; PULSE 94; RESP 18; TEMP 37; O2SAT 98; BMI 23.5
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
[2021-03-16 18:56] LABS: Hematocrit 37.8 % (37-47); Hemoglobin 12.5 g/dL (12.0-15.0)
[2021-03-16 20:08] LABS: hCG Titer Quant., Serum 93 mIU/mL (1-3)
--- NOTE | 2021-03-16 20:13 | CM.ED ---
SW Note Referral Source: Case Find Referral Reason: No Primary Care Physician (PCP) SW reviewed chart and noted that patient has no PCP. SW provided patient with list of [facility] and [facility] Physician List for reference. SW also provided patient with handout ?Where to go When?. No other issues or concerns voiced at this time. SW remains available for any additional needs. Plan: Provided patient with PCP information Jihan AYERS
== END 2021-03-16 20:28 | disposition home or self-care (01) ==
PROVIDERS: Emergency Provider Emergency Medicine
DX: O46.90 Antepartum hemorrhage, unspecified, unspecified trimester (principal); O26.891 Other specified pregnancy related conditions, first trimester; R10.2 Pelvic and perineal pain; O99.330 Smoking (tobacco) complicating pregnancy, unspecified trimester; F17.290 Nicotine dependence, other tobacco product, uncomplicated; Z3A.00 Weeks of gestation of pregnancy not specified
CPT/HCPCS: 84702; 85014; 85018; 86900; 86901; 99284

== ENCOUNTER 2021-04-07 11:30 | Emergency (ER) | payer MEDICAID, SELFPAY ==
[2021-04-07 11:32] VITALS: BP 133/80; PULSE 102; RESP 16; TEMP 36.6; O2SAT 98; BMI 23.1
--- NOTE | 2021-04-07 11:44 | EX.ED.DYSGE1 ---
HPI History of Present Illness Chief Complaint: Nausea/Vomiting Informant: patient Narrative Narrative: 21-year-old female G2, P1 presents the emergency department nausea and vomiting. Patient states that little over a month ago she went to see her hunting sales leader for some new control discovered that she was . Later that day she presented to the emergency department with continued pelvic cramping and had a quantitative hCG in the 90s. She followed up with her doctor and her hCG levels have been rising. She states for the past month she continues to have cramping and is now having nausea and vomiting. She denies any urinary or stool changes. She states she is not supposed to see her tanning drum operator until middle of April. She states that her first went well and she did not have any of these problems. She notes hot and cold flashes but no fever. [facility] Medical History ADHD Asthma Depression with anxiety Home Medications ondansetron 4 mg PO Q8H PRN PRN #20 tab 04/07/21 [Rx Last Taken Unknown] Allergy/AdvReac Type Severity Reaction Status Date / Time No Known Allergies Allergy Verified 04/07/21 11:33 Surgical History History of tonsillectomy Social History (Updated 04/07/21 @ 11:[address] Kiryb Camara DO) current gender identity: female Smoking Status: Current every day smoker tobacco type: e-cigarettes alcohol intake: current ROS ROS ED Constitutional Constitutional ED: Denies chills, fever(s) or weight loss Eyes Eyes: Denies change in vision or diplopia ENT ENT ED: Denies ear pain, rhinorrhea or sore throat Cardiovascular Cardiovascular: Denies chest pain, orthopnea, palpitations or racing heartbeat Respiratory/Chest Respiratory/Chest: Denies cough, dyspnea or orthopnea Gastrointestinal Gastrointestinal: Reports nausea and other Details: Cramping ; Denies abdominal pain, diarrhea or vomiting Genitourinary Genitourinary ED: Reports other Details: No vaginal bleeding ; Denies dysuria, hematuria or urinary frequency Musculoskeletal Musculoskeletal: Denies arthralgias or myalgias Integumentary Denies abscess or rash Neurologic Neurologic: Denies headache(s) or weakness Psychiatric Psychiatric: Denies anxiety, depression, suicidal ideation or suicidal thoughts Endocrine Endocrinology: Denies polydipsia, polyphagia or polyuria Allergic/Immunologic Allergic/Immunologic ED: Denies mouth swelling, tongue swelling or urticaria EXAM Physical Exam Const Vital Signs: 04/07/21 11:32 Temperature 98 F Temperature Source Temporal Pulse Rate 102 H Respiratory Rate 16 Blood Pressure 133/80 H Blood Pressure Mean 97 Pulse Ox 98 Oxygen Delivery Method Room Air Positive well nourished and well developed General Appearance ED: well developed HEENT Reports normocephalic, head/scalp atraumatic, TM's clear and moist mucous membranes Negative for trauma Tympanic Membrane ED: Yes TM's clear Eyes PERRL and EOMs intact bilaterally Neck no lymphadenopathy, supple and no JVD Resp normal respiratory effort and clear to auscultation bilaterally Cardio regular rate, regular rhythm and no murmurs GI normal to inspection, nondistended, normoactive bowel sounds and non-tender Palpation: soft Back/Spine no CVA tenderness and normal ROM Extremity normal to inspection General Extremety ED: Negative for edema General Extremity: Negative for edema Neuro oriented x3 and CN's II-XII intact bilaterally Sensorium / Orientation: alert Motor Exam: strength 5/5 throughout Psych mental status grossly normal Mood & Affect: Negative for depressed or tearful Skin no rashes or lesions noted and no wounds MDM MDM MDM Narrative Medical decision making narrative: CBC CMP showed glucose 132. Quantitative hCG at 60,893. Urinalysis showed no overt infection. Patient received IV fluids and a dose of Zofran. She is resting comfortably. Bedside ultrasound performed by this physician demonstrates a single live intrauterine with a heart rate of 140 bpm. There is no adnexal mass or fluid noted. I will write for the patient have some Zofran at home. Lab Data Attestation: I reviewed the patient's lab results. Labs: Laboratory Results - last 24 hr 04/07/21 04/07/21 04/07/21 11:50 11:50 11:50 WBC 9.9 RBC 4.51 Hgb 13.4 Hct 39.8 MCV 88.2 MCH 29.7 MCHC 33.7 RDW Std Deviation 40.2 RDW Coeff of Melchor 12.3 Plt Count 217 MPV 11.7 Immature Gran % (Auto) 0.400 Neut % (Auto) 70.1 H Lymph % (Auto) 22.0 [place] % (Auto) 5.5 Eos % (Auto) 1.6 Baso % (Auto) 0.4 Absolute Neuts (auto) 7.0 Absolute Lymphs (auto) 2.18 Nucleated RBC % 0 Sodium 137 Potassium 3.6 Chloride 104 Carbon Dioxide 23.0 Anion Gap 10 BUN 6 L Creatinine 0.76 Estim Creat Clear Calc 100.26 Est GFR (MDRD) Af Amer 122 Est GFR (MDRD) Non-Af 101 BUN/Creatinine Ratio 7.9 L Glucose 132 H Calcium 9.1 Total Bilirubin 0.50 AST 13 L ALT 19 Alkaline Phosphatase 48 Total Protein 6.9 Albumin 3.8 Globulin 3.1 Albumin/Globulin Ratio 1.2 HCG, Quant 06926 H Urine Color Urine Clarity Urine pH Ur Specific [place] Urine Protein Urine Glucose (UA) Urine Ketones Urine Occult Blood Urine Nitrite Urine Bilirubin Urine Urobilinogen Ur Leukocyte Esterase Urine RBC Urine WBC Ur Squamous Epith Cells Urine Bacteria Urine Mucus 04/07/21 11:51 WBC RBC Hgb Hct MCV MCH MCHC RDW Std Deviation RDW Coeff of [place]chor Plt Count MPV Immature Gran % (Auto) Neut % (Auto) Lymph % (Auto) [place] % (Auto) Eos % (Auto) Baso % (Auto) Absolute Neuts (auto) Absolute Lymphs (auto) Nucleated RBC % Sodium Potassium Chloride Carbon Dioxide Anion Gap BUN Creatinine Estim Creat Clear Calc Est GFR (MDRD) Af Amer Est GFR (MDRD) Non-Af BUN/Creatinine Ratio Glucose Calcium Total Bilirubin AST ALT Alkaline Phosphatase Total Protein Albumin Globulin Albumin/Globulin Ratio HCG, Quant Urine Color Yellow Urine Clarity Cloudy Urine pH 6.5 Ur Specific [place] 1.015 Urine Protein 15 H Urine Glucose (UA) Normal Urine Ketones 15 H Urine Occult Blood Negative Urine Nitrite Negative Urine Bilirubin Negative Urine Urobilinogen 1 H Ur Leukocyte Esterase 100 H Urine RBC 0 SEEN Urine WBC 0-5 SEEN Ur Squamous Epith Cells 10-25 SEEN Urine Bacteria 1+ Urine Mucus 1+ Discharge Plan Triage Chief Complaint: Nausea/Vomiting ED Provider: Kirby Camara Dx/Rx/DC Orders Clinical Impression: Vomiting affecting Instructions: ED Hyperemesis Gravidarum Prescriptions: New ondansetron [ondansetron] 4 MG tablet 4 mg PO Q8H PRN PRN (Reason: Nausea) Qty: 20 RF: 0 Primary Care Provider: Care Physician,No Primary Referrals: Karli Jacinto MD [STAFF PHYSICIAN] - Keep Sid appointment Care Physician,No Primary [Primary Care Provider] - Disposition Disposition: Home, Self Care
[2021-04-07] MEDS: Ondansetron 4 MG/2 ML Vial IV (11:54)
[2021-04-07] MEDS: 0.9% Normal Saline 1,000 ML 1000 ML IV (11:54)
[2021-04-07 11:58] LABS: Red Blood Cells-Urine 0 SEEN /hpf (0-5)
[2021-04-07 12:00] LABS: Color, Urine Yellow (Yellow); Glucose, Dipstick Normal (Normal); Ketone-Dipstick 15 mg/dl (Negative); Leukocyte Esterase-Dipstick 100 /ul (Negative); Nitrite-Dipstick Negative (Negative); Occult Blood-Urine Negative /ul (Negative); Protein-Dipstick 15 mg/dl (Negative); Specific Gravity, Urine 1.015 (1.002-1.030); Urine Bilirubin Dipstick Negative (Negative); Urine Clarity Cloudy (Clear); Urine Urobilinogen 1 mg/dl (Normal); Urine pH 6.5 (5.0 - 8.0)
[2021-04-07 12:01] LABS: Absolute Lymphocyte Count 2.18 X10^3/uL (0.83-4.51); Basophil# 0.04 X10^3/uL; Basophil% 0.4 % (0-1); Eosinophil# 0.16 X10^3/uL; Eosinophils% 1.6 % (0-5); Hematocrit 39.8 % (37-47); Hemoglobin 13.4 g/dL (12.0-15.0); Lymphocyte # 2.18 X10^3/ul (0.83-4.51); Mean Corp Hgb Conc 33.7 g/dL (32-36); Mean Corpuscular Hgb 29.7 pg (27.0-32.0); Mean Corpuscular Volume 88.2 fL (81-99); Mean Platelet Vol. 11.7 fl (6.2-12.0); Monocyte# 0.55 X10^3/uL; Monocyte% 5.5 % (0-10); NRBC Flagged by Analyzer 0 % (0-5); Neutrophil # 6.95 X10^3/uL (2.7-7.7); Neutrophil % 70.1 % (47-70); Platelet Count 217 K/mm3 (150-450); RBC Distribution Width CV 12.3 % (11.6-14.6); RBC Distribution Width SD 40.2 fl (35.1-43.9); Red Blood Count 4.51 M/mm3 (4.2-5.4); White Blood Count 9.9 K/mm3 (4.4-11.0)
[2021-04-07 12:06] LABS: Bacteria 1+ /hpf (None Seen); Mucous, Urine 1+ /hpf (<or=2+); Squamous Epithelial Cells - UA 10-25 SEEN /hpf (5-10); White Blood Cells 0-5 SEEN /hpf (0-5)
[2021-04-07 12:17] LABS: ALB/GLOB Ratio 1.2 RATIO (0.9-2.4); AST(SGOT) 13 U/L (15-37); Alanine Aminotransfer ALT/SGPT 19 U/L (13-56); Albumin, Serum 3.8 g/dL (3.2-5.0); Alkaline Phosphatase 48 U/L (45-117); Anion Gap 10 (5-15); BUN 6 mg/dL (7-18); BUN/Creat Ratio 7.9 RATIO (10-20); Calcium,Total 9.1 mg/dL (8.5-10.1); Chloride 104 mmol/L (98-107); Creatinine, Serum 0.76 mg/dL (0.55-1.02); EST Glomerular Filtration Rate 101 mL/min (>60); Est Glom Filt Rate - Afr Amer 122 mL/min (>60); Estimated Creatinine Clearance 100.26 ml/min; Globulin 3.1 g/dL (2.2-4.2); Glucose 132 mg/dL (74-106); Potassium 3.6 mmol/L (3.5-5.1); Protein, Total 6.9 g/dL (6.4-8.2); Sodium Level 137 mmol/L (136-145)
[2021-04-07 12:32] LABS: hCG Titer Quant., Serum 60893 mIU/mL (1-3)
[2021-04-07 13:03] VITALS: BP 100/75; PULSE 66
== END 2021-04-07 13:08 | disposition home or self-care (01) ==
PROVIDERS: Emergency Provider Emergency Medicine
DX: O21.9 Vomiting of pregnancy, unspecified (principal); O99.330 Smoking (tobacco) complicating pregnancy, unspecified trimester; F17.290 Nicotine dependence, other tobacco product, uncomplicated; Z3A.00 Weeks of gestation of pregnancy not specified
CPT/HCPCS: 80053; 81001; 84702; 85025; 96361; 96374; 99283; J7030; A4216; J2405

== ENCOUNTER 2021-09-11 14:25 | Outpatient (CLI) | payer MEDICAID, SELFPAY ==
[2021-09-11 14:59] VITALS: BP 117/67; PULSE 77
[2021-09-11 15:00] LABS: Mucous, Urine 0 SEEN /hpf (<or=2+); Red Blood Cells-Urine 0 SEEN /hpf (0-5)
[2021-09-11 15:01] VITALS: PULSE 80; TEMP 37.4; O2SAT 98
[2021-09-11 15:01] LABS: Color, Urine Yellow (Yellow); Glucose, Dipstick Normal (Normal); Ketone-Dipstick 5 mg/dl (Negative); Leukocyte Esterase-Dipstick 100 /ul (Negative); Nitrite-Dipstick Negative (Negative); Occult Blood-Urine Negative /ul (Negative); Protein-Dipstick 30 mg/dl (Negative); Urine Bilirubin Dipstick 1 mg/dL (Negative); Urine Clarity Sl. Cloudy (Clear); Urine Urobilinogen 4 mg/dl (Normal); Urine pH 6.5 (5.0 - 8.0)
[2021-09-11 15:08] LABS: Bacteria RARE /hpf (None Seen); Squamous Epithelial Cells - UA 10-25 SEEN /hpf (5-10); White Blood Cells 0-5 SEEN /hpf (0-5)
[2021-09-11 15:17] LABS: ROM Internal Control Test YES-OK TO RESULT pt. (Internal QC); ROM Patient Test Negative (Negative)
[2021-09-11 15:29] VITALS: BMI 27.8
[2021-09-11] MEDS: Lactated Ringers 1,000 ML 999 ML IV ×2 (15:45→18:30)
[2021-09-11 16:03] VITALS: TEMP 37.6
[2021-09-11 16:16] LABS: Hematocrit 34.2 % (37-47); Hemoglobin 11.6 g/dL (12.0-15.0); Mean Corp Hgb Conc 33.9 g/dL (32-36); Mean Corpuscular Hgb 30.4 pg (27.0-32.0); Mean Corpuscular Volume 89.8 fL (81-99); Mean Platelet Vol. 11.6 fl (6.2-12.0); Platelet Count 158 K/mm3 (150-450); RBC Distribution Width CV 12.9 % (11.6-14.6); RBC Distribution Width SD 42.3 fl (35.1-43.9); Red Blood Count 3.81 M/mm3 (4.2-5.4); White Blood Count 10.4 K/mm3 (4.4-11.0)
[2021-09-11 16:25] LABS: ALB/GLOB Ratio 0.9 RATIO (0.9-2.4); AST(SGOT) 17 U/L (15-37); Alanine Aminotransfer ALT/SGPT 14 U/L (13-56); Albumin, Serum 2.9 g/dL (3.2-5.0); Alkaline Phosphatase 83 U/L (45-117); Anion Gap 5 (5-15); BUN 7 mg/dL (7-18); BUN/Creat Ratio 13.9 RATIO (10-20); Calcium,Total 8.2 mg/dL (8.5-10.1); Chloride 109 mmol/L (98-107); EST Glomerular Filtration Rate 162 mL/min (>60); Est Glom Filt Rate - Afr Amer 197 mL/min (>60); Globulin 3.3 g/dL (2.2-4.2); Glucose 74 mg/dL (74-106); Potassium 3.6 mmol/L (3.5-5.1); Protein, Total 6.2 g/dL (6.4-8.2); Sodium Level 137 mmol/L (136-145)
[2021-09-11 18:13] VITALS: TEMP 37.4
[2021-09-11 18:14] VITALS: BP 117/64; PULSE 83
[2021-09-13 09:31] LABS: Gonococcus By Nucleic Acid AMP Negative (Negative)
[2021-09-13 09:35] LABS: Chlamydia By Nucleic Acid AMP Positive (Negative)
--- NOTE | 2021-09-24 16:23 | OB.TRI.NOTE ---
HPI - General HPI Narrative NATAN OSMAN, is a 21 F who presents for contractions. at 29w2d. No leakage of fluid or vaginal bleeding. Irregular contractions but frequent and uncomfortable. No recent intercourse or injury. PFSH PFSH Medical History ADHD Asthma Depression with anxiety Home Medications prenat.vits,cosmo,ldu-[id number] [ Vitamin] 1 tab PO DAILY 09/11/21 [History Last Taken 09/13/21 08:00] Allergy/AdvReac Type Severity Reaction Status Date / Time No Known Allergies Allergy Verified 09/13/21 20:42 Surgical History History of tonsillectomy Social History (Updated 04/07/21 @ 11:[address] Kirby Camara DO) Smoking Status: Current every day smoker tobacco type: e-cigarettes alcohol intake: current NST FHR Rate Baby A Baseline: 125 Variability:: Moderate Accelerations:: 15 x 15 Decelerations:: None NST Reactive:: Yes Uterine Activity:: Irregular Assessment & Plan (1) 29 weeks gestation of : (2) Abdominal pain: QUALIFIERS: Abdominal location: generalized Qualified Code(s): R10.84 - Generalized abdominal pain (3) Headache: (4) Uterine contractions during : PLAN: 1) ROM plus negative 2) Reactive NST 3) CMP normal 4) UA and urine culture sent 5) D/C home and follow up in office in 2-3 days
== END 2021-09-11 23:59 | disposition home or self-care (01) ==
LOC: WPOUT 14:26 → WP 14:27
PROVIDERS: Referring Provider Advanced Practice Midwife; Visit Provider Advanced Practice Midwife
DX: O26.893 Other specified pregnancy related conditions, third trimester (principal); R10.84 Generalized abdominal pain; R51.9 Headache, unspecified; O99.333 Smoking (tobacco) complicating pregnancy, third trimester; F17.290 Nicotine dependence, other tobacco product, uncomplicated; Z3A.29 29 weeks gestation of pregnancy
CPT/HCPCS: 96360; 96361; 36415; 59025; 59050; 80053; 81001; 84112; 85027; 87086; 87088; 87491; 87591; 99218; J7120; G0378

== ENCOUNTER 2021-09-13 20:05 | Outpatient (CLI) | payer MEDICAID, SELFPAY ==
[2021-09-13 20:16] VITALS: PULSE 85; O2SAT 99
[2021-09-13 20:20] VITALS: BP 124/66; PULSE 87
[2021-09-13 20:41] VITALS: BMI 27.8
[2021-09-13 21:20] LABS: Color, Urine Yellow (Yellow); Glucose, Dipstick Normal (Normal); Ketone-Dipstick 5 mg/dl (Negative); Leukocyte Esterase-Dipstick 25 /ul (Negative); Nitrite-Dipstick Negative (Negative); Occult Blood-Urine Negative /ul (Negative); Protein-Dipstick 30 mg/dl (Negative); Urine Bilirubin Dipstick Negative (Negative); Urine Clarity Clear (Clear); Urine Urobilinogen 4 mg/dl (Normal)
[2021-09-13 22:01] LABS: Fetal Fibronectin Negative
--- NOTE | 2021-09-14 06:57 | OB.TRI.HP_ITS ---
HPI - General HPI Narrative NATAN OSMAN, is a 21 F @ 29.4 wks who presents c/o abdominal pain , r/o PTL. denies vb, lof. pao FM Maternal Data Information Final KWAME: 11/25/21 Final KWAME Source: [place] <20 weeks Gestational age: 29.4 [facility] Medical History ADHD Asthma Depression with anxiety Home Medications prenat.vits,cosmo,[id number] [ Vitamin] 1 tab PO DAILY 09/11/21 [History Last Taken 09/13/21 08:00] Allergy/AdvReac Type Severity Reaction Status Date / Time No Known Allergies Allergy Verified 09/13/21 20:42 Surgical History History of tonsillectomy Social History (Updated 04/07/21 @ 11:[address] Kirby Camara DO) Smoking Status: Current every day smoker tobacco type: e-cigarettes alcohol intake: current NST FHR Rate Baby A Baseline: 130 Variability:: Moderate Accelerations:: 15 x 15 and 10 x 10 NST Reactive:: Yes FHR Category:: Category I Uterine Activity:: no ctx Assessment & Plan (1) 29 weeks gestation of : (2) Abdominal pain: QUALIFIERS: Abdominal location: generalized Qualified Code(s): R10.84 - Generalized abdominal pain PLAN: @ 29 weeks- abdominal pain- not in labor 1) ffn-neg 2) cervical check- Closed/thick 3) Urine culture sent appears based on urinalysis- dehydration 4) pt to call office for update tomorrow morning. prior to dc home pt reports felt much better.
== END 2021-09-13 23:59 | disposition home or self-care (01) ==
LOC: WPOUT 20:13 → WP 20:14
PROVIDERS: Visit Provider Obstetrics & Gynecology
DX: O26.893 Other specified pregnancy related conditions, third trimester (principal); R10.84 Generalized abdominal pain; O99.283 Endocrine, nutritional and metabolic diseases complicating pregnancy, third trimester; E86.0 Dehydration; F17.290 Nicotine dependence, other tobacco product, uncomplicated; O99.333 Smoking (tobacco) complicating pregnancy, third trimester; Z3A.29 29 weeks gestation of pregnancy
CPT/HCPCS: 59025; 59050; 81002; 82731; 87086; 87088; 99218; G0378

== ENCOUNTER 2021-11-18 14:05 | Inpatient (IN) | payer MEDICAID, SELFPAY ==
[2021-11-18] VITALS (49 sets, daily range): BP systolic 104–146; BP diastolic 55–82; PULSE 56–104; TEMP 36.4–37; O2SAT 94–100; BMI 30.7
[2021-11-18 13:48] LABS: ROM Internal Control Test YES-OK TO RESULT pt. (Internal QC); ROM Patient Test Negative (Negative)
--- NOTE | 2021-11-18 14:14 | HP.PCM.OB_ITS ---
HPI - General General Date of Admission: 11/18/21 HPI Narrative NATAN OSMAN, is a 21 F 2 para 1-0-0-1 who presents at 39-0/7 weeks gestation with a EDC of 11/25/2021 confirmed by first trimester ultrasound who presents complaining contractions and possible leaking of fluid. Evaluation for rupture of membranes was negative. Patient sofi irregularly and having sharp pain in the cervix. Denies gross vaginal bleeding. Good movement. Patient states she is very uncomfortable and the maternal discomfort is making it difficult for her to function on a day-to-day basis. Would strongly desire induction of labor. Maternal Data Information Final KWAME: 11/25/21 Gestational age: 39 0/7 PFSH [facility] Medical History ADHD Asthma Depression with anxiety Home Medications prenat.vits,cosmo,[id number]-vvagv [ Vitamin] 1 tab PO DAILY 09/11/21 [History Last Taken 11/18/21 08:00 1 tab] Allergy/AdvReac Type Severity Reaction Status Date / Time No Known Allergies Allergy Verified 09/13/21 20:42 Family History (Updated 11/18/21 @ 14:16 by Meri Moore) Father Hypertrophic cardiomyopathy Grandfather Hypertrophic cardiomyopathy Surgical History History of tonsillectomy Social History (Updated 04/07/21 @ 11:[address] Kirby Camara DO) Smoking Status: Current every day smoker tobacco type: e-cigarettes alcohol intake: current NST FHR Rate Baby A Baseline: normal Variability:: Moderate Accelerations:: 15 x 15 NST Reactive:: Yes FHR Category:: Category I Uterine Activity:: irreg ctxs ROS Constitutional Constitutional: Denies fatigue, fever(s) or malaise Eyes Eyes: Denies change in vision ENT HEENT: Denies dizziness or headache(s) Cardiovascular Cardiovascular: Denies chest pain, dyspnea or lightheadedness Respiratory/Chest Respiratory/Chest: Denies cough or dyspnea Gastrointestinal Gastrointestinal: Denies change in bowel habits Genitourinary Genitourinary: Denies burning urination or genital lesions Integumentary Integumentary: Denies rash Neurologic Neurologic: Denies confusion, dizziness, headache(s), numbness or weakness Vital Signs Vital Signs Vital Signs: 11/18/21 13:11 11/18/21 13:12 11/18/21 13:13 Temperature 98.5 F 98.4 F Temperature Source Temporal Pulse Rate 86 Blood Pressure 133/61 H BP Systolic 133 BP Diastolic 61 Pulse Ox 11/18/21 13:14 Temperature Temperature Source Pulse Rate 80 Blood Pressure BP Systolic BP Diastolic Pulse Ox 98 Weight Weight: 81.2 kg Body Mass Index (BMI) 30.7 Physical Exam Const alert and no apparent distress General Appearance: cooperative HEENT normocephalic Resp normal respiratory effort Cardio regular rate GI soft to palpation GI Narrative: gravid, nontender, appropriate for gestational age Extremity no calf tenderness General Extremity: edema Skin no wounds Rashes: No rashes noted Psych activity/motor behavior normal Labs Labs Labs: Blood Type A POSITIVE Antibody Screen NEGATIVE Hct 34.2 % (37-47) L Hgb 11.6 g/dL (12.0-15.0) L Obstetrics US Chlamydia DNA (ANURADHA) Positive (Negative) H Neisseria gonorrhoeae DNA (ANURADHA) Negative (Negative) Assessment & Plan (1) 39 weeks gestation of : (2) Multigravida in third trimester: PLAN: Risk benefits alternatives to induction of labor with artificial rupture membranes and Pitocin have been discussed with patient, questions were answered to her satisfaction desires to proceed. Estimated weight is approximately 3500 to 4000 g, pelvis clinically adequate to expect vaginal delivery. May use normal methods for pain control. Patient verbally consented for urine tox screen due to history of marijuana use in the past. She is to follow-up with cardiology approximately 1 month after delivery due to family history of hypertrophic cardiomyopathy. was complicated earlier by chlamydial infection, repeat test on 11/12/2021 was negative.
[2021-11-18] MEDS: Lactated Ringers 1,000 ML 50 ML IV (14:15)
[2021-11-18 14:33] LABS: Absolute Lymphocyte Count 2.56 X10^3/uL (0.83-4.51); Absolute Neutrophil Count 10.1 X10^3/uL (2.0-7.7); Basophil# 0.05 X10^3/uL; Basophil% 0.4 % (0-1); Eosinophil# 0.18 X10^3/uL; Eosinophils% 1.3 % (0-5); Hematocrit 34.8 % (37-47); Hemoglobin 11.6 g/dL (12.0-15.0); Lymphocyte # 2.56 X10^3/ul (0.83-4.51); Lymphocyte % 18.6 % (19-41); Mean Corp Hgb Conc 33.3 g/dL (32-36); Mean Corpuscular Hgb 29.5 pg (27.0-32.0); Mean Corpuscular Volume 88.5 fL (81-99); Mean Platelet Vol. 11.4 fl (6.2-12.0); Monocyte# 0.66 X10^3/uL; Monocyte% 4.8 % (0-10); NRBC Flagged by Analyzer 0 % (0-5); Neutrophil % 73.5 % (47-70); Platelet Count 165 K/mm3 (150-450); RBC Distribution Width CV 12.6 % (11.6-14.6); RBC Distribution Width SD 41.3 fl (35.1-43.9); Red Blood Count 3.93 M/mm3 (4.2-5.4); White Blood Count 13.7 K/mm3 (4.4-11.0)
[2021-11-18 14:44] LABS: Amphetamine Urine VISTA NEGATIVE (<1000 ng/mL); Barbiturate Urine VISTA NEGATIVE (< 200 ng/mL); Benzodiazepine Urine VISTA NEGATIVE (< 200 ng/mL); Cocaine Urine VISTA NEGATIVE (< 300 ng/mL); Ecstacy Urine VISTA NEGATIVE (< 500 ng/mL); Methadone Urine VISTA NEGATIVE (< 300 ng/mL); PCP Urine VISTA NEGATIVE (< 25 ng/mL); THC Urine VISTA POSITIVE (< 50 ng/mL); Vista UDS pH Range 8
[2021-11-18 14:50] LABS: ALB/GLOB Ratio 0.8 RATIO (0.9-2.4); AST(SGOT) 16 U/L (15-37); Alanine Aminotransfer ALT/SGPT 14 U/L (13-56); Albumin, Serum 2.8 g/dL (3.2-5.0); Alkaline Phosphatase 141 U/L (45-117); Anion Gap 8 (5-15); BUN 8 mg/dL (7-18); BUN/Creat Ratio 15.5 RATIO (10-20); Calcium,Total 8.7 mg/dL (8.5-10.1); Chloride 108 mmol/L (98-107); Creatinine, Serum 0.52 mg/dL (0.55-1.02); EST Glomerular Filtration Rate 157 mL/min (>60); Est Glom Filt Rate - Afr Amer 190 mL/min (>60); Estimated Creatinine Clearance 146.54 ml/min; Globulin 3.5 g/dL (2.2-4.2); Glucose 78 mg/dL (74-106); Potassium 3.9 mmol/L (3.5-5.1); Protein, Total 6.3 g/dL (6.4-8.2); Sodium Level 137 mmol/L (136-145)
[2021-11-18] MEDS: Oxytocin 30 units/NS 500 ml 30 UNITS/500 ML IV.SOLN IV (14:55)
[2021-11-18] MEDS: LACTATED RINGERS 500 ML 999 ML IV (16:27)
[2021-11-18] MEDS: fentaNYL-bupivacaine (epidural) 100 ML BAG EPIDURAL (17:18)
[2021-11-18] MEDS: Oxytocin 30 units/NS 500 ml 30 UNITS/500 ML IV.SOLN 334 UNITS IV (20:06)
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
--- NOTE | 2021-11-18 20:18 | EX.PCM.OBRPT ---
Assessment & Plan (1) 39 weeks gestation of : (2) (spontaneous vaginal delivery): Maternal Data Information Final KWAME: 11/25/21 Gestational age: 39 0/7 Vaginal Delivery Maternal Presentation Maternal Presentation: Elective Induction Type of Induction: Pitocin and Amniotomy Operative Information Date of Procedure: 11/18/21 Pre-Operative Diagnosis: labor Post-Operative Diagnosis: same Surgery / Procedure Performed: Spontaneous Vaginal Delivery Type of Anesthesia: Epidural Special Medications: none Drain: Frank to straight drain Estimated Blood Loss: 300 Time of Delivery: 20:05 Findings Description of Procedure: A vigorous female infant was delivered MALIKA over a first-degree vaginal laceration. The remainder the infant was delivered with maternal pushing and gentle traction only in less than 15 seconds. The Pitocin infusion was initiated for active management of the third stage. The cord was clamped and cut after 1 minute. The infant was attended to by the waiting nursing staff. The placenta was delivered spontaneously and intact. The cervix and vagina were intact. The first-degree vaginal laceration was repaired with 2-0 Vicryl in a running standard fashion. Sponge and needle counts were correct. A vaginal sweep was completed by me. Presentation: MALIKA Amniotic Membrane Rupture Type: Artificial Amniotic Fluid Description: Clear Placental Delivery Description: Spontaneous Placenta Disposition: [facility] Cord Vessel Description: 3 Vessels Cord Entanglement: None A Gender: Female (Marbella Viktoria) (1 minute): 8 (5 minute): 9 Delayed Cord Clamping: Yes Post Vaginal Delivery Medications Given After Delivery: IV Pitocin Episiotomy Description: None Laceration: 1st degree (vaginal) Complication Complications: None
[2021-11-18] MEDS: Naproxen 500 MG Tablet PO (21:36)
[2021-11-18] MEDS: Benzocaine/Lanolin/Aloe Vera 1 SPRAY EACH TOPICAL (21:37)
[2021-11-19 00:20] VITALS: BP 123/59; PULSE 82; RESP 18; TEMP 36.9; O2SAT 98
[2021-11-19 03:07] VITALS: BP 114/64; PULSE 79; RESP 18; TEMP 36.6
[2021-11-19 07:52] VITALS: BP 119/59; PULSE 55; RESP 16; TEMP 36.6
--- NOTE | 2021-11-19 09:00 | PCM.PN.OB ---
Subjective Subjective Doing well per patient and nursing staff. Ambulating and taking PO without difficulty. Voiding and passing flatus. Pain controlled. , services for assistance. Denies headache, visual changes, chest pain, shortness of breath, leg pain or increased bleeding. Lochia normal. Would like discharge home today. Objective Data Objective Data Vital Signs: Vital Signs Temp Pulse Resp BP Pulse Ox 97.8 F 55 L 16 119/59 L 98 11/19/21 07:52 11/19/21 07:52 11/19/21 07:52 11/19/21 07:52 11/19/21 00:20 Oxygen Delivery Method Room Air Weight: 179 lb 0.246 oz Body Mass Index (BMI) 30.7 Intake & Output: Intake and Output for Last 24 Hours 11/17/21 11/18/21 11/19/21 23:59 23:59 23:59 Intake Total 1757.27 / 1757.27 Output Total 800 / 800 800 / 800 Balance 957.27 / 957.27 -800 / -800 Lab / Micro Data Result Diagrams: 11/18/21 14:15 11/18/21 14:15 Labs: Laboratory Results - last 24 hr 11/18/21 13:20: Vag Amniotic Fld Detect Negative 11/18/21 14:15: WBC 13.7 H, RBC 3.93 L, Hgb 11.6 L, Hct 34.8 L, MCV 88.5, MCH 29.5, MCHC 33.3, RDW Std Deviation 41.3, RDW Coeff of Melchor 12.6, Plt Count 165, MPV 11.4, Immature Gran % (Auto) 1.400 H, Neut % (Auto) 73.5 H, Lymph % (Auto) 18.6 L, [place] % (Auto) 4.8, Eos % (Auto) 1.3, Baso % (Auto) 0.4, Absolute Neuts (auto) 10.1 H, Absolute Lymphs (auto) 2.56, Nucleated RBC % 0 11/18/21 14:15: Blood Type A POSITIVE, Antibody Screen NEGATIVE 11/18/21 14:15: Urine Opiates Screen NEGATIVE, Urine Methadone Screen NEGATIVE, Ur Barbiturates Screen NEGATIVE, Ur Phencyclidine Scrn NEGATIVE, Ur Amphetamines Screen NEGATIVE, MDMA (Ecstasy) Screen NEGATIVE, U Benzodiazepines Scrn NEGATIVE, Urine Cocaine Screen NEGATIVE, U Cannabinoids Screen POSITIVE H, Ur Drug Screen Comment 11/18/21 14:15: Sodium 137, Potassium 3.9, Chloride 108 H, Carbon Dioxide 21.0, Anion Gap 8, BUN 8, Creatinine 0.52 L, Estim Creat Clear Calc 146.54, Est GFR (MDRD) Af Amer 190, Est GFR (MDRD) Non-Af 157, BUN/Creatinine Ratio 15.5, Glucose 78, Calcium 8.7, Total Bilirubin 0.40, AST 16, ALT 14, Alkaline Phosphatase 141 H, Total Protein 6.3 L, Albumin 2.8 L, Globulin 3.5, Albumin/Globulin Ratio 0.8 L Micro: Microbiology 11/18/21 14:15 Nasal Secretion SARS-CoV-2 Antigen (Rapid) - Final ROS Constitutional Constitutional: Reports systems reviewed and no addt'l complaints, except as documented; Denies headache(s) Eyes Eyes: Denies acute decrease in peripheral vision, blurry vision or change in vision ENT HEENT: Reports systems reviewed and no addt'l complaints, except as documented Cardiovascular Cardiovascular: Denies chest pain or dizziness Respiratory/Chest Respiratory/Chest: Denies cough, dyspnea, dyspnea on exertion, shortness of breath at rest or shortness of breath with exertion Gastrointestinal Gastrointestinal: Denies abdominal pain, diarrhea, nausea or vomiting Genitourinary Genitourinary: Denies abdominal discomfort Musculoskeletal Musculoskeletal: Denies limited range of motion Integumentary Integumentary: Reports systems reviewed and no addt'l complaints, except as documented Neurologic Neurologic: Reports systems reviewed and no addt'l complaints, except as documented Psychiatric Psychiatric: Reports systems reviewed and no addt'l complaints, except as documented Endocrine Endocrinology: Reports systems reviewed and no addt'l complaints, except as documented Hematologic/Lymphatic Hematologic/Lymphatic: Reports systems reviewed and no addt'l complaints, except as documented Allergic/Immunologic Allergic/Immunologic: Reports systems reviewed and no addt'l complaints, except as documented Physical Exam Const alert and oriented x3 General Appearance: cooperative Orientation / Consciousness: awake, oriented to person, oriented to place and oriented to time Exam Limitations: no limitations HEENT normocephalic Head and Scalp: normal to inspection, normocephalic and atraumatic Face and Sinus: normal facial exam Eyes General Eye: normal appearance of both eyes Neck full ROM Chest Chest: symmetrical chest wall rise Resp normal respiratory effort and normal air movement Auscultation: clear to auscultation bilaterally Cardio regular rate, regular rhythm, S1 normal heart sound, S2 normal heart sound, no murmurs, no rub, no gallops and no clicks GI normal to inspection, nondistended, normoactive bowel sounds and non-tender GI Narrative: fundus firm 2 below U appearance of the vagina normal Bladder / Kidney Exam: no CVA tenderness Back/Spine normal ROM Extremity normal to inspection and full ROM Extremity Narrative: Ming's negative bilaterally Skin no rashes or lesions noted Neuro oriented x3, CN's II-XII intact bilaterally and moves all extremities Sensorium / Orientation: awake, alert and oriented to person Motor Exam: clonus absent Deep Tendon Reflexes: Rt Patellar (L4): 2+ and Lt Patellar (L4): 2+ Assessment & Plan (1) (spontaneous vaginal delivery): (2) Lactating mother: PLAN: 1) Routine PP and instructions 2) Declines LARC 3) Declines pain medication for home 4) Desires discharge today. Instructions given. Follow up in 2 weeks and 6 weeks PP 5) D/C home
--- NOTE | 2021-11-19 09:00 | PCM.DC.SUM ---
Providers Date of Admission: 11/18/21 Primary Care Physician: No Primary Care Phys Reason For Visit: VIGINAL DELIVERY Diagnosis Discharge Diagnosis (1) 39 weeks gestation of : Status: Acute Code(s): Z3A.39 - 39 weeks gestation of (2) (spontaneous vaginal delivery): Status: Acute Code(s): O80 - Encounter for full-term uncomplicated delivery Medications at Discharge Home Medications prenat.vits,cosmo,fjn-ceca-akmge 1 tab PO DAILY 09/11/21 acetaminophen 1,000 mg PO Q6H PRN PRN #0 tab 11/19/21 benzocaine-menthol [Dermoplast (with menthol)] 1 spray TOPICAL TID PRN PRN #0 g 11/19/21 naproxen 500 mg PO Q8H PRN PRN #0 tab 11/19/21 Weight / BMI Weight Weight: 179 lb 0.246 oz Body Mass Index (BMI) 30.7 ABG / Lab / Microbiology Data Result Diagrams: 11/18/21 14:15 11/18/21 14:15 Laboratory: Laboratory Results - last 24 hr 11/18/21 13:20: Vag Amniotic Fld Detect Negative 11/18/21 14:15: WBC 13.7 H, RBC 3.93 L, Hgb 11.6 L, Hct 34.8 L, MCV 88.5, MCH 29.5, MCHC 33.3, RDW Std Deviation 41.3, RDW Coeff of Melchor 12.6, Plt Count 165, MPV 11.4, Immature Gran % (Auto) 1.400 H, Neut % (Auto) 73.5 H, Lymph % (Auto) 18.6 L, [place] % (Auto) 4.8, Eos % (Auto) 1.3, Baso % (Auto) 0.4, Absolute Neuts (auto) 10.1 H, Absolute Lymphs (auto) 2.56, Nucleated RBC % 0 11/18/21 14:15: Blood Type A POSITIVE, Antibody Screen NEGATIVE 11/18/21 14:15: Urine Opiates Screen NEGATIVE, Urine Methadone Screen NEGATIVE, Ur Barbiturates Screen NEGATIVE, Ur Phencyclidine Scrn NEGATIVE, Ur Amphetamines Screen NEGATIVE, MDMA (Ecstasy) Screen NEGATIVE, U Benzodiazepines Scrn NEGATIVE, Urine Cocaine Screen NEGATIVE, U Cannabinoids Screen POSITIVE H, Ur Drug Screen Comment 06/12/22 14:15: Sodium 137, Potassium 3.9, Chloride 108 H, Carbon Dioxide 21.0, Anion Gap 8, BUN 8, Creatinine 0.52 L, Estim Creat Clear Calc 146.54, Est GFR (MDRD) Af Amer 190, Est GFR (MDRD) Non-Af 157, BUN/Creatinine Ratio 15.5, Glucose 78, Calcium 8.7, Total Bilirubin 0.40, AST 16, ALT 14, Alkaline Phosphatase 141 H, Total Protein 6.3 L, Albumin 2.8 L, Globulin 3.5, Albumin/Globulin Ratio 0.8 L Microbiology: Microbiology 11/18/21 14:15 Nasal Secretion SARS-CoV-2 Antigen (Rapid) - Final Meaningful Use Info Meaningful Use Diagnoses (Choose all that apply): None applicable Discharge Plan Admission Admit Date/Time: 11/18/21 14:05 Primary Reason for Your Visit: vaginal delivery Attending Provider: Karli Jacinto Primary Care Provider: Care Physician,No Primary Instructions Patient Instructions: After a Vaginal Discharge Orders/Prescriptions Prescriptions: New Dermoplast (with menthol) 20-0.5 % Aerosol 1 spray topical TID PRN PRN (Reason: perineal discomfort) Qty: 0 RF: 0 acetaminophen 500 mg Tablet 1,000 mg PO Q6H PRN PRN (Reason: Pain 1-10 Or Fever) Qty: 0 RF: 0 naproxen 500 mg Tablet 500 mg PO Q8H PRN PRN (Reason: Pain Score 1-3) Qty: 0 RF: 0 Continued prenat.vits,cosmo,gth-gqpc-ndrac Tablet 1 tab PO DAILY RF: 0 Referrals / Follow Up: Care Physician,No Primary [Primary Care Provider] - Disposition Disposition (needs filled in before D/C Order can be placed): Home, Self Care
[2021-11-19] MEDS: Senna/Docusate Sodium 1 Tablet PO (11:19)
[2021-11-19 12:00] VITALS: BP 122/61; PULSE 67; RESP 16; TEMP 36.7
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
--- NOTE | 2021-11-19 14:26 | CASEMGMT ---
Social Work Labor and Delivery Called [facility] ([facility]) and spoke with Lanie Barnes in the intake department ([phone], extension [phone]). Referral due to substance exposed infant in utero to marijuana with maternal drug screen positive at admissions. Additional exposure to reported prescription of Flexeril, and past history with children services. Brief maternal and histories provided, as documented dynamics between MOB and support system during labor; also need for safe sleeping education. Reported that MOB seemed to be doing well with baby during social work visit. Plan: MOB and baby to discharge home, with resources provided for home going. [facility] has been notified and anticipate follow up in the community. Will monitor for meconium drug screen results (and urine if obtained prior to discharge) and report findings as indicated. No other services requested or indicated. -PATT Clancy, COLLECTIONS MANAGER
[2021-11-19 17:30] VITALS: BP 115/78; PULSE 90; RESP 16; TEMP 36.6
[2021-11-19 19:22] VITALS: BP 112/67; PULSE 78; RESP 16; TEMP 36.7; O2SAT 97
== END 2021-11-19 21:25 | disposition home or self-care (01) | DRG 560 ==
LOC: WPOUT 11-20 12:30
PROVIDERS: Admitting Provider Obstetrics & Gynecology; Referring Provider Obstetrics & Gynecology; Visit Provider Obstetrics & Gynecology
DX: O26.893 Other specified pregnancy related conditions, third trimester (principal); Z37.0 Single live birth; F17.290 Nicotine dependence, other tobacco product, uncomplicated; O70.0 First degree perineal laceration during delivery; Z3A.39 39 weeks gestation of pregnancy; O99.334 Smoking (tobacco) complicating childbirth; Z28.310 Unvaccinated for COVID-19; Z28.9 Immunization not carried out for unspecified reason; Z82.49 Family history of ischemic heart disease and other diseases of the circulatory system
CPT/HCPCS: 59025; 59050; 80053; 80307; 84112; 85025; 86850; 86900; 86901; 87426; 99218; 99406; J7120; G0378

== ENCOUNTER 2022-10-11 21:10 | Inpatient (IN) | payer MEDICAID, SELFPAY ==
[2022-10-11 21:11] VITALS: BP 111/71; PULSE 102; RESP 16; TEMP 36.7; O2SAT 100; BMI 55.2
--- NOTE | 2022-10-11 21:26 | CT_ITS ---
STUDY: CT ABDOMEN AND PELVIS WITH CONTRAST REASON FOR EXAM: Female, 22 years old. RLQ Pain RADIATION DOSAGE (If Supplied By Facility): CTDIvol = ( 13.32 ) mGy, DLP = ( 513.66 ) mGycm TECHNIQUE: Transaxial images were obtained from the dome of the diaphragm to the symphysis pubis without oral contrast. IV 100mL Isovue-370 was administered. Sagittal and coronal images were reconstructed. Individualized dose optimization techniques were used for this CT. COMPARISON: CT abdomen and pelvis March 28, 2019. FINDINGS: The visualized lung bases are unremarkable. The visualized portions of the heart are within normal limits. Normal liver. Normal gallbladder and extrahepatic biliary system. Normal spleen. Normal pancreas. Normal bilateral adrenal glands. Normal right kidney. Normal left kidney. Normal visualized stomach. Normal small intestine. There is stranding of the pericecal fat. This appears to be due to a large diverticulum which is inflamed. The adjacent terminal ileum and appendix appear relatively normal. There is no free air or free fluid. There is no abscess. Normal abdominal aorta. Normal inferior vena cava. Normal retroperitoneum. Normal urinary bladder. Uterus normal. Fat-containing umbilical hernia. Normal osseous structures. 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 No evidence of perforation or abscess at this time. Surgical consultation recommended. Electronically Signed: Haider Hernandez MD at 22:49 EDT ,
[2022-10-11] MEDS: 0.9% Normal Saline 1,000 ML 1000 ML IV (21:37)
[2022-10-11] MEDS: Ondansetron 4 MG/2 ML Vial IV (21:37)
[2022-10-11] MEDS: Morphine 4 MG/ML Syringe IV ×2 (21:37→23:07)
--- NOTE | 2022-10-11 21:47 | ED.VIS.GI ---
HPI HPI - GI History of Present Illness Chief Complaint: Abd Pain Informant: patient Narrative Narrative: Patient presents with abdominal pain. Patient states that her pain started about 35 hours ago. It was not sudden onset. It was kind of all over in the abdomen. It has moved and localized to the right lower quadrant though. She has developed nausea but no vomiting. She had a couple soft bowel movements but not watery diarrhea. No blood seen. She really has not eaten or drank today. She just has no interest. She states she might of had a fever at first. She felt very warm when it was cold out but she never checked her temperature. She has no urinary symptoms. She has no vaginal discharge or bleeding. Her last menstrual cycle was about a week to week and a half ago. She is on implantable control in her left arm and has been on this since she was 14 years old. She has no history of abdominal surgeries. She will get menstrual cramps and occasionally cramps midcycle but this does not feel at all like those. This started up higher in his right lower quadrant but does not feel as though it is in the pelvis. Nothing that she ate was different. No one she knows is ill. Nothing really makes it better. Lifting up her right leg or bumps makes it worse. PFSH PFSH Medical History ADHD Anxiety Asthma Asthma Chlamydia infection affecting Depression Depression with anxiety GERD (gastroesophageal reflux disease) Injury of head and neck Marijuana use Migraines Nicotine use Smoker Home Medications etonogestrel 68 mg subdermal implant (Nexplanon) mg subdermal 10/11/22 [History Last Taken Unknown] Allergy/AdvReac Type Severity Reaction Status Date / Time No Known Allergies Allergy Verified 10/11/22 21:11 Family History Father Hypertrophic cardiomyopathy Grandfather Hypertrophic cardiomyopathy Surgical History History of tonsillectomy Social History Smoking Status: Current every day smoker tobacco type: e-cigarettes alcohol intake: current ROS ROS ED Constitutional Constitutional ED: Reports subjective ENT ENT ED: Denies rhinorrhea Cardiovascular Cardiovascular: Denies chest pain or palpitations Respiratory/Chest Respiratory/Chest: Denies cough or dyspnea Gastrointestinal Gastrointestinal: Reports abdominal pain, diarrhea and nausea; Denies melena or vomiting Genitourinary Genitourinary ED: Denies hematuria or urinary frequency Musculoskeletal Musculoskeletal: Denies back pain Integumentary Denies rash Neurologic Neurologic: Denies paresthesias or weakness Hematologic/Lymphatic Hematologic/Lymphatic: Denies easy bleeding or easy bruising Allergic/Immunologic Allergic/Immunologic ED: Denies urticaria EXAM Physical Exam Narrative Exam Narrative: CONSTITUTIONAL: Patient is nontoxic in appearance. The patient looks comfortable. HEENT: No notable trauma. Mucous membranes minimally dry. EYES: No conjunctival injection. No icterus. CARDIOVASCULAR: Regular rate. Regular rhythm. No notable murmur. No JVD. RESPIRATORY: No respiratory distress. Breathing is unlabored. No wheezes. No rhonchi. No rales. No pain with a deep breath. GASTROINTESTINAL: Not distended. Bowel sounds are normal. There is tenderness toward the right lower quadrant. There is mild voluntary guarding but no rebound of significance. She does have a little bit of discomfort though hitting the bed. Mild Rovsing sign. I can rotate her right leg at the hip internally and externally without pain. But if she tries to lift up her leg it causes pain in the right lower quadrant. GENITOURINARY: No CVA tenderness. MUSCULOSKELETAL: Atraumatic. No peripheral edema. NEUROLOGICAL: Patient is alert and appropriate. No focal deficit noted. SKIN: No noted rashes. No diaphoresis. No vesicles or skin changes in the area of pain. PSYCHIATRIC: Patient is calm. Mood is appropriate. Const Vital Signs: 10/11/22 21:11 10/11/22 23:19 Temperature 98.0 F 98.8 F Temperature Source Oral Temporal Pulse Rate 102 H 99 Respiratory Rate 16 18 Blood Pressure 111/71 117/69 Blood Pressure Mean 84 85 Blood Pressure Source Monitor Blood Pressure Position Semi-Fowlers Blood Pressure Location Right Arm Pulse Ox 100 97 Oxygen Delivery Method Room Air Room Air MDM MDM MDM Narrative Medical decision making narrative: My independent her potation the patient's CT shows inflammatory area in front of and medial to the proximal colon cecum area. 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 CBC shows mild elevation of white count at 11.6 otherwise normal. Electrolytes show no acute process. Although her creatinine is normal it is twice what her baseline is. is negative. I discussed the case with surgeon, Dr. Sesay. He came in quickly and saw the patient here. He reviewed the studies labs and saw the patient in person. Patient will be admitted to his service. Lab Data Attestation: I reviewed the patient's lab results. Labs: Laboratory Results - last 24 hr 10/11/22 10/11/22 10/11/22 21:31 21:31 21:31 WBC 11.6 H RBC 4.57 Hgb 13.3 Hct 40.5 MCV 88.6 MCH 29.1 MCHC 32.8 RDW Std Deviation 41.2 RDW Coeff of Melchor 12.7 Plt Count 185 MPV 12.0 Immature Gran % (Auto) 0.300 Neut % (Auto) 63.2 Lymph % (Auto) 23.8 [place] % (Auto) 6.4 Eos % (Auto) 5.7 H Baso % (Auto) 0.6 Absolute Neuts (auto) 7.4 Absolute Lymphs (auto) 2.77 Nucleated RBC % 0 Sodium 138 Potassium 3.8 Chloride 107 Carbon Dioxide 23.0 Anion Gap 8 BUN 11 Creatinine 1.01 Estim Creat Clear Calc 74.81 Est GFR (MDRD) Af Amer 87 Est GFR (MDRD) Non-Af 72 BUN/Creatinine Ratio 10.9 Glucose 96 Calcium 9.1 Serum , Qual NEGATIVE Radiography Diagnostic Testing: Clinical Impression(s) from Imaging Studies Abdomen/Pelvis CT 10/11/22 21:26 IMPRESSION: 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 No evidence of perforation or abscess at this time. Surgical consultation recommended. Electronically Signed: Haider Hernandez MD at 22:49 EDT , Discharge Plan Dx/Rx/DC Orders Clinical Impression: Diverticulitis, Nausea, Leukocytosis Disposition Disposition: Acute Care Hospital [facility] Discharge Date/Time: 10/12/22 00:27
[2022-10-11 21:53] LABS: Absolute Lymphocyte Count 2.77 X10^3/uL (0.83-4.51); Absolute Neutrophil Count 7.4 X10^3/uL (2.0-7.7); Basophil# 0.07 X10^3/uL; Basophil% 0.6 % (0-1); Eosinophil# 0.66 X10^3/uL; Eosinophils% 5.7 % (0-5); Hematocrit 40.5 % (37-47); Hemoglobin 13.3 g/dL (12.0-15.0); Lymphocyte # 2.77 X10^3/ul (0.83-4.51); Lymphocyte % 23.8 % (19-41); Mean Corp Hgb Conc 32.8 g/dL (32-36); Mean Corpuscular Hgb 29.1 pg (27.0-32.0); Mean Corpuscular Volume 88.6 fL (81-99); Monocyte# 0.74 X10^3/uL; Monocyte% 6.4 % (0-10); NRBC Flagged by Analyzer 0 % (0-5); Neutrophil # 7.36 X10^3/uL (2.7-7.7); Neutrophil % 63.2 % (47-70); Platelet Count 185 K/mm3 (150-450); RBC Distribution Width CV 12.7 % (11.6-14.6); RBC Distribution Width SD 41.2 fl (35.1-43.9); Red Blood Count 4.57 M/mm3 (4.2-5.4); White Blood Count 11.6 K/mm3 (4.4-11.0)
[2022-10-11 22:03] LABS: Internal QC Validated? YES +Cl - CLEAR BKGD; Pregnancy, Serum, hCG Quali. NEGATIVE Negative
[2022-10-11 22:06] LABS: Anion Gap 8 (5-15); BUN 11 mg/dL (7-18); BUN/Creat Ratio 10.9 RATIO (10-20); Calcium,Total 9.1 mg/dL (8.5-10.1); Chloride 107 mmol/L (98-107); Creatinine, Serum 1.01 mg/dL (0.55-1.02); EST Glomerular Filtration Rate 72 mL/min (>60); Est Glom Filt Rate - Afr Amer 87 mL/min (>60); Estimated Creatinine Clearance 74.81 ml/min; Glucose 96 mg/dL (74-106); Potassium 3.8 mmol/L (3.5-5.1); Sodium Level 138 mmol/L (136-145)
[2022-10-11] MEDS: proMETHazine 25 MG/ML Syringe 12.5 MG IM (23:07)
[2022-10-11 23:19] VITALS: BP 117/69; PULSE 99; RESP 18; TEMP 37.1; O2SAT 97; BMI 55.2
--- NOTE | 2022-10-11 23:34 | NURSING ---
MED SURG GENNYBANNERCELINE ACUTE DIVERTICULITIS, INTRACTABLE NAUSEA
--- NOTE | 2022-10-11 23:36 | PCM.HP.STD ---
HPI - General HPI Narrative NATAN OSMAN, is a 22 F who presents with nausea and right lower quadrant pain. Patient reports that pain started yesterday morning and went throughout the day and then in the middle the night last night she was woken up out of her sleep with pain and nausea. He reports the pain and nausea worsened during the day today. Pain is in the right lower quadrant does not radiate. She has never had anything happen like this before. She does have a strong family history of diverticulitis. She has not noted any blood in her stool. She does say she has very abnormal menstrual cycles and just finished a 3-week long menstrual cycle and started another cycle 2 days ago. FORMERLY [facility], [facility] Medical History ADHD Asthma Chlamydia infection affecting Depression with anxiety Marijuana use Migraines Nicotine use Home Medications etonogestrel 68 mg subdermal implant (Nexplanon) mg subdermal 10/11/22 [History Last Taken Unknown] Allergy/AdvReac Type Severity Reaction Status Date / Time No Known Allergies Allergy Verified 10/11/22 21:11 Family History Father Hypertrophic cardiomyopathy Grandfather Hypertrophic cardiomyopathy Surgical History History of tonsillectomy Social History Smoking Status: Current every day smoker tobacco type: e-cigarettes alcohol intake: current ROS Constitutional Constitutional: Reports anorexia and chills; Denies fatigue Eyes Eyes: Denies blurry vision ENT HEENT: Denies abnormal hearing Cardiovascular Cardiovascular: Denies chest pain Respiratory/Chest Respiratory/Chest: Denies cough or dyspnea Gastrointestinal Gastrointestinal: Reports abdominal pain and nausea; Denies coffee ground emesis, melena or rectal bleeding Genitourinary Genitourinary: Denies change in urinary stream Musculoskeletal Musculoskeletal: Denies abnormal gait Integumentary Integumentary: Denies jaundice Neurologic Neurologic: Denies abnormal gait Vital Signs Vital Signs Vital Signs: 10/11/22 21:11 10/11/22 23:19 Temperature 98.0 F 98.8 F Temperature Source Oral Temporal Pulse Rate 102 H 99 Respiratory Rate 16 18 Blood Pressure 111/71 117/69 Blood Pressure Mean 84 85 Blood Pressure Source Monitor Blood Pressure Position Semi-Fowlers Blood Pressure Location Right Arm Pulse Ox 100 97 Oxygen Delivery Method Room Air Room Air Weight Weight: 321 lb 13.998 oz Body Mass Index (BMI) 55.2 Physical Exam Const oriented x3 and no apparent distress Resp normal respiratory effort Cardio regular rate and regular rhythm GI soft to palpation Palpation: tender RLQ Extremity normal to inspection Results Lab / Micro Data Result Diagrams: 10/11/22 21:31 10/11/22 21:31 Labs: Laboratory Results - last 24 hr 10/11/22 21:31: WBC 11.6 H, RBC 4.57, Hgb 13.3, Hct 40.5, MCV 88.6, MCH 29.1, MCHC 32.8, RDW Std Deviation 41.2, RDW Coeff of Melchor 12.7, Plt Count 185, MPV 12.0, Immature Gran % (Auto) 0.300, Neut % (Auto) 63.2, Lymph % (Auto) 23.8, [place] % (Auto) 6.4, Eos % (Auto) 5.7 H, Baso % (Auto) 0.6, Absolute Neuts (auto) 7.4, Absolute Lymphs (auto) 2.77, Nucleated RBC % 0 10/11/22 21:31: Sodium 138, Potassium 3.8, Chloride 107, Carbon Dioxide 23.0, Anion Gap 8, BUN 11, Creatinine 1.01, Estim Creat Clear Calc 74.81, Est GFR (MDRD) Af Amer 87, Est GFR (MDRD) Non-Af 72, BUN/Creatinine Ratio 10.9, Glucose 96, Calcium 9.1 10/11/22 21:31: Serum , Qual NEGATIVE Radiology Impression Abdomen/Pelvis CT 10/11/22 21:26 IMPRESSION: 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 No evidence of perforation or abscess at this time. Surgical consultation recommended. Electronically Signed: Haider Hernandez MD at 22:49 EDT , Assessment & Plan Assessment/Plan (1) Diverticulitis: PLAN: Patient has a slightly elevated white count and nausea and right lower quadrant pain. She had a CT scan which showed diverticulitis of the cecum with inflammation. This is a very odd presentation for young female to have diverticulitis in the cecum. I will admit her and treat her like normal diverticulitis of the sigmoid for now. I will admit her and have her on bowel rest and start IV fluids and IV antibiotics. Continue pain control. If the patient worsens at all I recommend ileocecectomy. I discussed this with her. If everything improves I will slowly start a diet and repeat a CT needed in the coming weeks and perform a colonoscopy in 4 to 6 weeks. Roberto Carlos Sesay MD Pager: [facility] [address] [place] [address], [address] [place] [address] Office:
[2022-10-11 23:53] VITALS: BP 114/81; PULSE 97; RESP 14; TEMP 36.1; O2SAT 100
[2022-10-12 00:38] VITALS: BMI 25.4
[2022-10-12 01:02] VITALS: BP 110/57; PULSE 73; RESP 12; TEMP 36.8; O2SAT 98
[2022-10-12] MEDS: 0.9% Normal Saline 1,000 ML 100 ML IV ×3 (01:31→21:40)
[2022-10-12] MEDS: Morphine 2 MG/ML Syringe IV ×6 (01:31→20:52)
[2022-10-12] MEDS: Ketorolac 15 MG/ML Vial IV ×3 (01:31→18:33)
[2022-10-12] MEDS: 0.9% Saline Lock 10 ML Syringe IV ×5 (01:35→18:33)
[2022-10-12 06:31] LABS: Absolute Lymphocyte Count 2.86 X10^3/uL (0.83-4.51); Absolute Neutrophil Count 4.4 X10^3/uL (2.0-7.7); Basophil# 0.05 X10^3/uL; Basophil% 0.6 % (0-1); Hematocrit 37.2 % (37-47); Hemoglobin 11.8 g/dL (12.0-15.0); Lymphocyte # 2.86 X10^3/ul (0.83-4.51); Mean Corp Hgb Conc 31.7 g/dL (32-36); Mean Corpuscular Hgb 29.3 pg (27.0-32.0); Mean Corpuscular Volume 92.3 fL (81-99); Mean Platelet Vol. 12.2 fl (6.2-12.0); Monocyte# 0.56 X10^3/uL; Monocyte% 6.7 % (0-10); NRBC Flagged by Analyzer 0 % (0-5); Neutrophil # 4.41 X10^3/uL (2.7-7.7); Neutrophil % 52.5 % (47-70); Platelet Count 126 K/mm3 (150-450); RBC Distribution Width CV 12.8 % (11.6-14.6); RBC Distribution Width SD 43.6 fl (35.1-43.9); Red Blood Count 4.03 M/mm3 (4.2-5.4); White Blood Count 8.4 K/mm3 (4.4-11.0)
[2022-10-12 06:53] VITALS: BP 91/50; PULSE 83; RESP 18; TEMP 36.5; O2SAT 99
[2022-10-12] MEDS: Ondansetron 4 MG/2 ML Vial IV ×3 (06:58→22:53)
[2022-10-12 07:07] LABS: Anion Gap 4 (5-15); BUN 9 mg/dL (7-18); Calcium,Total 8.3 mg/dL (8.5-10.1); Chloride 112 mmol/L (98-107); EST Glomerular Filtration Rate 82 mL/min (>60); Est Glom Filt Rate - Afr Amer 99 mL/min (>60); Estimated Creatinine Clearance 83.95 ml/min; Glucose 88 mg/dL (74-106); Potassium 4.2 mmol/L (3.5-5.1); Sodium Level 139 mmol/L (136-145)
--- NOTE | 2022-10-12 07:09 | NURSING ---
Addendum entered by Mirian Pizarro 10/12/22 07:56: correction to below-go ahead and give another 2 mg of morphine for a total of 4 mg. Original Note: Verbal order by Dr. Sesay. He is aware of BP at 93/59, go ahead and give another mg of morphine for a total of 4 mg. Also, give Toradol at 0900, which will be 31 minutes early.
--- NOTE | 2022-10-12 07:24 | PCM.PN.SRG ---
Subjective Subjective Patient is still in significant pain with nausea Objective Data Objective Data Vital Signs: Vital Signs Temp Pulse Resp BP Pulse Ox O2 Del Method 97.7 F L 83 18 91/50 L 99 Room Air 10/12/22 06:53 10/12/22 06:53 10/12/22 06:53 10/12/22 06:53 10/12/22 06:53 10/12/22 06:53 Oxygen Delivery Method Room Air Weight: 148 lb 7 oz Body Mass Index (BMI) 25.4 Intake & Output: Intake and Output for Last 24 Hours 10/10/22 10/11/22 10/12/22 23:59 23:59 23:59 Intake Total 1000 / 1000 Balance 1000 / 1000 Lab / Micro Data Result Diagrams: 10/12/22 05:55 10/12/22 05:55 Labs: Laboratory Results - last 24 hr 10/11/22 21:31: WBC 11.6 H, RBC 4.57, Hgb 13.3, Hct 40.5, MCV 88.6, MCH 29.1, MCHC 32.8, RDW Std Deviation 41.2, RDW Coeff of Melchor 12.7, Plt Count 185, MPV 12.0, Immature Gran % (Auto) 0.300, Neut % (Auto) 63.2, Lymph % (Auto) 23.8, [place] % (Auto) 6.4, Eos % (Auto) 5.7 H, Baso % (Auto) 0.6, Absolute Neuts (auto) 7.4, Absolute Lymphs (auto) 2.77, Nucleated RBC % 0 10/11/22 21:31: Sodium 138, Potassium 3.8, Chloride 107, Carbon Dioxide 23.0, Anion Gap 8, BUN 11, Creatinine 1.01, Estim Creat Clear Calc 74.81, Est GFR (MDRD) Af Amer 87, Est GFR (MDRD) Non-Af 72, BUN/Creatinine Ratio 10.9, Glucose 96, Calcium 9.1 10/11/22 21:31: Serum , Qual NEGATIVE 10/12/22 05:55: WBC 8.4, RBC 4.03 L, Hgb 11.8 L, Hct 37.2, MCV 92.3, MCH 29.3, MCHC 31.7 L, RDW Std Deviation 43.6, RDW Coeff of Melchor 12.8, Plt Count 126 L, MPV 12.2 H, Immature Gran % (Auto) 0.200, Neut % (Auto) 52.5, Lymph % (Auto) 34.0, [place] % (Auto) 6.7, Eos % (Auto) 6.0 H, Baso % (Auto) 0.6, Absolute Neuts (auto) 4.4, Absolute Lymphs (auto) 2.86, Nucleated RBC % 0 10/12/22 05:55: Sodium 139, Potassium 4.2, Chloride 112 H, Carbon Dioxide 23.0, Anion Gap 4 L, BUN 9, Creatinine 0.90, Estim Creat Clear Calc 83.95, Est GFR (MDRD) Af Amer 99, Est GFR (MDRD) Non-Af 82, BUN/Creatinine Ratio 10.0, Glucose 88, Calcium 8.3 L Radiography Diagnostic Testing: Radiology Impression Abdomen/Pelvis CT 10/11/22 21:26 IMPRESSION: 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 No evidence of perforation or abscess at this time. Surgical consultation recommended. Electronically Signed: Haider Hernandez MD at 22:49 EDT , Physical Exam Const oriented x3 Resp normal respiratory effort GI soft to palpation Palpation: tender RLQ Assessment & Plan Assessment/Plan (1) Diverticulitis: PLAN: The the patient has diverticulitis of the cecum. She is only been admitted for about 8 hours. She is still having significant pain. I am treating pain with morphine and Toradol. She is on Zosyn and n.p.o. She is not tachycardic and her abdomen is soft but very tender in the right lower quadrant. No guarding. She had no fever or tachycardia overnight. Continue to closely monitor. If nausea and pain will not subside she may still require surgical resection. Roberto Carlos Sesay MD Pager: [facility] [address] [place] [address], [address] [place] [address] Office:
--- NOTE | 2022-10-12 08:58 | CASEMGMT ---
ANDRES JEFF Assessment: Face to Face with pt for initial transition planning/care coordination assessment. ANDRES JEFF introduced self and role at [facility], pt voices understanding and consents to assessment. Pt is A/O x4 and answers all questions appropriately at this time. Pt lying in bed in no distress. Care providers, pharmacy, and demographics verified/updated. Admitting Dx: diverticulitis PCP:Pt denies. Pt denies wanting a list of local healthcare providers. She states she never gets sick and utilizes urgent care. Specialists: Denies. Preferred Pharmacy: [facility] Insurance: [facility] Prescription Benefit: yes LNOK: Edie barrett, mother; Rachael Bolanos, friend Living Arrangements: Pt lives with her mother and 2 children in an apt with approx 10 steps to enter. Pt reports she is I in ADL's and denies concerns at home. Transportation: Pt has her permit and can drive although her mother transports her to medical appts. DME/HHC/SNF: Pt denies having any DME in the home, previous HHC or SNF stays. Pt states no concerns with going home at time of dc. Pt states no further concerns/needs. CM to follow. Advised pt to ask CM if any further question/concerns/needs arise, voices understanding. Pt Goal: Home Plan: Home
[2022-10-12 09:00] VITALS: BP 92/53; PULSE 85; RESP 18; TEMP 37.1; O2SAT 99
[2022-10-12] MEDS: Pantoprazole Sodium 40 MG Tablet PO (09:49)
[2022-10-12 14:15] VITALS: BP 93/46; PULSE 65; RESP 18; TEMP 36.8; O2SAT 98
[2022-10-12 16:26] VITALS: BP 99/66
--- NOTE | 2022-10-12 16:45 | CASEMGMT ---
Social Work Note RAJIV met with patient and patient's guest and introduced herself and role as [facility] Set Up Operator. Patient was agreeable to speak with SW with her guest waiting in waiting area. SW then assisted patient in completing social determinants of health assessment. Patient explained she is living with her mother and patient's two daughters. Patient reports no concerns regarding housing as she needs to remain at her mother's home for support due to medical needs of her daughter and patient feeling unstable. Patient reports she is actively involved with services at [facility] and will work on housing options when she is ready. No other needs were determined based on assessment, patient declined need for resources. Patient's guest informed he can return to patient's room. Yaneli CARR, NELIDA
[2022-10-12 21:33] VITALS: BP 110/72; PULSE 69; RESP 16; TEMP 36.5; O2SAT 98
[2022-10-13] VITALS (15 sets, daily range): BP systolic 114–148; BP diastolic 53–79; PULSE 51–108; RESP 16–20; TEMP 36.6–37.2; O2SAT 97–100; BMI 25.4
[2022-10-13] MEDS: Ketorolac 15 MG/ML Vial IV ×3 (03:02→23:01)
[2022-10-13] MEDS: 0.9% Saline Lock 10 ML Syringe IV ×2 (03:05→23:05)
[2022-10-13] MEDS: Morphine 2 MG/ML Syringe IV ×5 (05:16→23:02)
[2022-10-13 07:35] LABS: Erythrocyte Sedimentation Rate 7 mm/hr (0-30)
[2022-10-13 07:38] LABS: Absolute Lymphocyte Count 2.14 X10^3/uL (0.83-4.51); Absolute Neutrophil Count 6.7 X10^3/uL (2.0-7.7); Basophil# 0.05 X10^3/uL; Basophil% 0.5 % (0-1); Eosinophil# 0.36 X10^3/uL; Eosinophils% 3.7 % (0-5); Hematocrit 36.2 % (37-47); Hemoglobin 11.5 g/dL (12.0-15.0); Lymphocyte # 2.14 X10^3/ul (0.83-4.51); Lymphocyte % 21.7 % (19-41); Mean Corp Hgb Conc 31.8 g/dL (32-36); Mean Corpuscular Hgb 29.3 pg (27.0-32.0); Mean Corpuscular Volume 92.3 fL (81-99); Mean Platelet Vol. 12.7 fl (6.2-12.0); Monocyte# 0.57 X10^3/uL; Monocyte% 5.8 % (0-10); NRBC Flagged by Analyzer 0 % (0-5); Neutrophil # 6.69 X10^3/uL (2.7-7.7); Neutrophil % 67.9 % (47-70); Platelet Count 137 K/mm3 (150-450); RBC Distribution Width CV 12.1 % (11.6-14.6); RBC Distribution Width SD 41.6 fl (35.1-43.9); Red Blood Count 3.92 M/mm3 (4.2-5.4); White Blood Count 9.9 K/mm3 (4.4-11.0)
[2022-10-13] MEDS: 0.9% Normal Saline 1,000 ML 100 ML IV ×3 (07:52→23:00)
[2022-10-13 07:53] LABS: Anion Gap 8 (5-15); BUN 12 mg/dL (7-18); BUN/Creat Ratio 15.2 RATIO (10-20); Calcium,Total 8.3 mg/dL (8.5-10.1); Chloride 114 mmol/L (98-107); Creatinine, Serum 0.79 mg/dL (0.55-1.02); EST Glomerular Filtration Rate 95 mL/min (>60); Est Glom Filt Rate - Afr Amer 115 mL/min (>60); Estimated Creatinine Clearance 95.64 ml/min; Glucose 57 mg/dL (74-106); Potassium 4.1 mmol/L (3.5-5.1); Sodium Level 139 mmol/L (136-145)
--- NOTE | 2022-10-13 09:20 | PN.SURG_ITS ---
Subjective Subjective Patient reports that she has no improvement in her pain. She says she is still very tender and she was unable to get up to even pee on her own yesterday. She says she vomited last night as well. Pain is still all in the right lower quadrant. Denies any fevers or chills. Objective Data Objective Data Vital Signs: Vital Signs Temp Pulse Resp BP Pulse Ox O2 Del Method 98.1 F 52 L 16 114/53 L 98 Room Air 10/13/22 05:12 10/13/22 05:12 10/13/22 05:12 10/13/22 05:12 10/13/22 05:12 10/13/22 05:12 Oxygen Delivery Method Room Air Weight: 148 lb 7 oz Body Mass Index (BMI) 25.4 Intake & Output: Intake and Output for Last 24 Hours 10/11/22 10/12/22 10/13/22 23:59 23:59 23:59 Intake Total 1000 / 1000 2435 / 2435 1050 / 1050 Balance 1000 / 1000 2435 / 2435 1050 / 1050 Lab / Micro Data Result Diagrams: 10/13/22 06:15 10/13/22 06:15 Labs: Laboratory Results - last 24 hr 10/13/22 06:15: WBC 9.9, RBC 3.92 L, Hgb 11.5 L, Hct 36.2 L, MCV 92.3, MCH 29.3, MCHC 31.8 L, RDW Std Deviation 41.6, RDW Coeff of Melchor 12.1, Plt Count 137 L, MPV 12.7 H, Immature Gran % (Auto) 0.400, Neut % (Auto) 67.9, Lymph % (Auto) 21.7, [place] % (Auto) 5.8, Eos % (Auto) 3.7, Baso % (Auto) 0.5, Absolute Neuts (auto) 6.7, Absolute Lymphs (auto) 2.14, Nucleated RBC % 0, ESR 7 10/13/22 06:15: Sodium 139, Potassium 4.1, Chloride 114 H, Carbon Dioxide 17.0 L , Anion Gap 8, BUN 12, Creatinine 0.79, Estim Creat Clear Calc 95.64, Est GFR (MDRD) Af Amer 115, Est GFR (MDRD) Non-Af 95, BUN/Creatinine Ratio 15.2, Glucose 57 L, Calcium 8.3 L Physical Exam Const oriented x3 Resp normal respiratory effort GI soft to palpation Palpation: tender RLQ Assessment & Plan Assessment/Plan (1) Diverticulitis: PLAN: Patient has been here for over 24 hours on Zosyn with bowel rest with no improvement. Patient reports she is still having severe pain in the right lower quadrant and nausea and vomiting. At this point I believe the only option would be removing the segment of colon. It seems like conservative measures will not resolve her issue. It is also very odd presentation to have right-sided d iverticulitis in such a young female and so it likely warrants exploration and resection. I discussed laparoscopic ileocecectomy versus right hemicolectomy with her. I discussed possibly converting to open if there is too much inflammation. I discussed the risks of the procedure such as bleeding, infection, injury to surrounding organs such as the ureter, bladder, other bowel. Patient understands all the risks and is willing to proceed. Roberto Carlos Sesay MD Pager: [facility] [address] [place] [address], [address] [place] [address] Office:
--- NOTE | 2022-10-13 09:36 | NURSING ---
0977 report called to surgery. VSS, rating pain at 9. voided at 0900. Reba Avila RN
--- NOTE | 2022-10-13 10:05 | COL_PTH ---
PATIENT: NATAN OSMAN LOC: MS3 U#:[id number] AGE/SX: ROOM: MS316 RE10/11/[address]: Dr. Roberto Carlos Sesay MD : 2000 BED: 1 DIS: 10/15/2022 SPEC #: [id number] RECD: 10/14/22 10:46 STATUS: DEVIN NOBLE #: [id number] RONNI: 10/13/22 10:[address]: Roberto Carlos Sesay DEPT: SURGICAL PATHOLOGY RECD BY: Trang Villafuerte ENTERED: 10/14/22 13:34 SP TYPE: COLON OTHR DR: No Primary Care Phys Tissues: Colon, NOS Procedures: Surgery Specimen Level V HEADER OPERATION: Laparoscopic hemicolectomy PRE-OP DIAGNOSIS: Diverticulitis TISSUE SUBMITTED: Cecum and lymph node MICROSCOPIC DIAGNOSIS Cecum and lymph node, hemicolectomy: Cecal diverticulum and diverticulitis. Appendix, focal minimal acute inflammation in lumen. Small intestine and colonic donut, no pathologic diagnosis. Separate small segment of small and large bowel, no pathologic diagnosis. One lymph node with reactive changes. CARMELLA:wilmar 10/16/2022 COMMENT Case has been reviewed in consultation with Dr. Ivory who concurs with the above diagnosis. IDC:AM MICROSCOPIC DESCRIPTION Slides are reviewed. GROSS DESCRIPTION Received in fixative is one container labeled with the patient's name and designated cecum and lymph node. The specimen consists of a right hemicolectomy specimen consisting of cecum, small intestine and appendix. The cecum measures 7.0 cm in length and 4.0 cm in diameter, segment of small intestine measures 6.0 cm in length and appendix measures 7.5 cm in length and 0.7 cm in diameter. Both resection margins are stapled. No mucosal lesion is identified. Lumen contains fecal material. At the junction of cecum and small intestine on the serosal surface, there is a nodule measuring 5.0 x 3.5 x 2.0 cm. More dictation will follow after fixation. / CARMELLA:wilmar 10/14/2022 Sections of appendix reveal the lumen is filled with fecal material. No fecalith is identified. The nodule on the serosal surface at the junction of cecum and small intestine reveal a lumen consistent with cecal diverticulum. Sections of the tissue surrounding the diverticulum show richard, purulent exudate. Also present in the container is a donut-shaped piece of tissue measuring 5.0 x 2.0 x 1.5 cm. multiple phillip are noted. Two separate segments of the bowel are also present in the container measuring 1.0 and 2.0 cm in length. Resection margins are stapled in these two segments of bowel. A separate small nodule consistent with lymph node is also present measuring 1.0 cm in greatest dimension. Heat Set Operator sections are submitted in 11 cassettes as follows: 1 - proximal and distal resection margins, 2 - appendix, 3-6 - nodule, ? diverticula adjacent to the junction of small and large bowel, 7 - authorization representative sections of small, large bowel and ileocecal valve, 8 - pericolonic adipose tissue, 9??donut-shaped piece of tissue, 10 - separate segments of bowel, 11 - one bisected lymph node. / CARMELLA:wilmar 10/15/2022 TC:5 CPT: 73477
[2022-10-13] MEDS: Bupivacaine 0.25% 30 ML Vial (11:11)
--- NOTE | 2022-10-13 11:37 | OP.PCM_ITS ---
Report of Operation Date of Procedure: 10/13/22 Pre-Operative Diagnosis: Diverticulitis of the cecum Post-Operative Diagnosis: Same Surgery/Procedure Performed:: Laparoscopic ileocecectomy Specimen's removed: Cecum Estimated Blood Loss (mL): 50 Description of Procedure: Patient was brought back to the operating room and general anesthesia was induced. A Frank catheter was placed. Abdomen was prepped and draped in usual sterile fashion. A small midline incision was made and deepened to the fascia and elevated and incised. A port was placed into the abdomen. The abdomen was insufflated 15 mmHg. Camera was placed into the abdomen and it was inspected. Patient was placed in Trendelenburg position and under direct visualization a 5 mm port was placed in the left lower quadrant and the suprapubic space. Nontraumatic graspers were used to reflect the omentum which was adherent to the cecum. The fat overlying the terminal ileum and ileocecal valve seemed inflamed. Using Enseal the right colon was mobilized from its lateral attachments. The right ureter was identified and avoided. Next the midline incision was elongated and will protector was placed. The right colon and t erminal ileum was delivered through the incision. BRAIN stapler was used to divide the terminal ileum and the right colon. The ileocecal area was removed using Enseal to divide its mesentery. Next using a BRAIN stapler the small bowel was stapled to the distal ascending colon in a [id number] functional end-to-end fashion. The staple line was inspected and appeared to be hemostatic. Next a TX 60 stapler was used to close the enterostomy. Sutures were used to stop any bleeding. 3-0 silk crotch suture was used. The mesenteric defect was closed using a running 3-0 Vicryl suture. The abdomen was irrigated and suctioned dry and there appeared to be no further bleeding. The omentum was draped over the anastomosis. The wound protector was removed and the fascia was closed with two 0-PDS sutures starting at the top and bottom meeting in the middle. The subcutaneous tissue was irrigated and hemostasis obtained using electrocautery. Local anesthetic was used at all the incisions. The skin was closed with interrupted 4-0 Monocryl sutures and Steri-Strips and bandages were applied. At the end the case the Frank was removed. Patient was awoken and taken to PACU in stable condition and tolerated the procedure well. Ileocecal area was sent for pathology. Admit VTE Documentation VTE Mechan Device Prophylaxis: SCD's
[2022-10-13] MEDS: Lactated Ringers 1,000 ML 15 ML IV (11:48)
[2022-10-13] MEDS: Ondansetron 4 MG/2 ML Vial IV (17:02)
--- NOTE | 2022-10-13 22:01 | MDS.RN ---
Pt put call murillo on. Pt asked to go to bathroom. Pt moaning .Pt said she cant get out of bed, the pain w movement. Pt asked for me to pull her up so she can get out of bed. Informed pt i cant i have a bad back. Pt was able to hop out of bed with no problem. walked to the bathroom with no more moaning.
[2022-10-14 03:10] VITALS: BP 141/72; PULSE 52; RESP 18; TEMP 37.2; O2SAT 99
[2022-10-14] MEDS: Morphine 2 MG/ML Syringe IV ×6 (03:12→19:57)
[2022-10-14 08:00] LABS: Absolute Lymphocyte Count 1.08 X10^3/uL (0.83-4.51); Absolute Neutrophil Count 10.9 X10^3/uL (2.0-7.7); Basophil# 0.02 X10^3/uL; Basophil% 0.2 % (0-1); Eosinophil# 0.02 X10^3/uL; Eosinophils% 0.2 % (0-5); Hematocrit 37.5 % (37-47); Hemoglobin 12.5 g/dL (12.0-15.0); Lymphocyte # 1.08 X10^3/ul (0.83-4.51); Lymphocyte % 8.2 % (19-41); Mean Corp Hgb Conc 33.3 g/dL (32-36); Mean Corpuscular Hgb 29.3 pg (27.0-32.0); Mean Platelet Vol. 11.8 fl (6.2-12.0); Monocyte# 1.04 X10^3/uL; Monocyte% 7.9 % (0-10); NRBC Flagged by Analyzer 0 % (0-5); Neutrophil # 10.89 X10^3/uL (2.7-7.7); Neutrophil % 82.9 % (47-70); Platelet Count 178 K/mm3 (150-450); RBC Distribution Width SD 38.8 fl (35.1-43.9); Red Blood Count 4.26 M/mm3 (4.2-5.4); White Blood Count 13.1 K/mm3 (4.4-11.0)
--- NOTE | 2022-10-14 08:07 | PCM.PN.SRG ---
Subjective Subjective Patient reports severe pain. She also says she is nauseous. Objective Data Objective Data Vital Signs: Vital Signs Temp Pulse Resp BP Pulse Ox O2 Del Method 99.0 F 52 L 18 141/72 H 99 Room Air 10/14/22 03:10 10/14/22 03:10 10/14/22 03:10 10/14/22 03:10 10/14/22 03:10 10/14/22 03:10 Oxygen Delivery Method Room Air Weight: 148 lb 7 oz Body Mass Index (BMI) 25.4 Intake & Output: Intake and Output for Last 24 Hours 10/12/22 10/13/22 10/14/22 23:59 23:59 23:59 Intake Total 2435 / 2435 3253.25 / 3253.25 Output Total 750 / 750 Balance 2435 / 2435 2503.25 / 2503.25 Lab / Micro Data Result Diagrams: 10/14/22 07:50 10/13/22 06:15 Labs: Laboratory Results - last 24 hr 10/14/22 07:50: WBC 13.1 H, RBC 4.26, Hgb 12.5, Hct 37.5, MCV 88.0, MCH 29.3, MCHC 33.3, RDW Std Deviation 38.8, RDW Coeff of Melchor 12.0, Plt Count 178, MPV 11.8, Immature Gran % (Auto) 0.600, Neut % (Auto) 82.9 H, Lymph % (Auto) 8.2 L, [place] % (Auto) 7.9, Eos % (Auto) 0.2, Baso % (Auto) 0.2, Absolute Neuts (auto) 10.9 H, Absolute Lymphs (auto) 1.08, Nucleated RBC % 0 Physical Exam Const oriented x3 and no apparent distress Resp normal respiratory effort Cardio regular rate and regular rhythm GI soft to palpation Palpation: tender Assessment & Plan Assessment/Plan (1) Diverticulitis: PLAN: Patient had ileocecectomy yesterday due to an inflamed area in the cecum. Patient was comfortably resting before she saw me walking to her room and after she did she started crying saying she was in severe pain. She also said the same thing overnight saying she was in severe pain but then got up very easily to go to the bathroom. Vitals are all stable. Abdomen is soft and nondistended and the right lower quadrant which was guarding yesterday is much softer. Continue attempting pain management and nausea control until bowel function so she can start a diet. Roberto Carlos Sesay MD Pager: [facility] [address] [place] [address], [address] [place] [phone] Office:
[2022-10-14 08:15] LABS: Anion Gap 10 (5-15); BUN 5 mg/dL (7-18); BUN/Creat Ratio 7.2 RATIO (10-20); Chloride 109 mmol/L (98-107); EST Glomerular Filtration Rate 111 mL/min (>60); Est Glom Filt Rate - Afr Amer 134 mL/min (>60); Estimated Creatinine Clearance 107.93 ml/min; Glucose 97 mg/dL (74-106); Potassium 4.1 mmol/L (3.5-5.1); Sodium Level 136 mmol/L (136-145)
[2022-10-14] MEDS: 0.9% Saline Lock 10 ML Syringe IV ×4 (08:19→21:11)
[2022-10-14 09:15] VITALS: BP 130/86; PULSE 55; RESP 16; TEMP 36.9; O2SAT 99
[2022-10-14] MEDS: 0.9% Normal Saline 1,000 ML 100 ML IV ×2 (09:33→19:57)
[2022-10-14] MEDS: Pantoprazole Sodium 40 MG Tablet PO (09:33)
[2022-10-14 14:10] VITALS: BP 136/77; PULSE 80; RESP 16; TEMP 37.2; O2SAT 99
[2022-10-14 19:56] VITALS: BP 134/90; PULSE 87; RESP 16; TEMP 36.8; O2SAT 95
[2022-10-14] MEDS: Ondansetron 4 MG/2 ML Vial IV (20:03)
[2022-10-15 00:52] VITALS: BP 134/91; PULSE 90; RESP 18; TEMP 36.4; O2SAT 97
[2022-10-15] MEDS: Morphine 2 MG/ML Syringe IV ×2 (00:52→01:51)
--- NOTE | 2022-10-15 00:55 | NURSING ---
Addendum entered by Mirian Pizarro 10/15/22 04:42: Patient did ambulate one lap in hallway after RN educated regarding importance of ambulation. Original Note: This RN asked patient if she had ambulated in hallway as we had discussed earlier this shift. Patient replied, No, I fell asleep. RN stressed importance of ambulation after abdominal surgery.
[2022-10-15 06:41] LABS: Absolute Lymphocyte Count 2.03 X10^3/uL (0.83-4.51); Absolute Neutrophil Count 5.5 X10^3/uL (2.0-7.7); Basophil# 0.03 X10^3/uL; Basophil% 0.4 % (0-1); Eosinophil# 0.21 X10^3/uL; Eosinophils% 2.5 % (0-5); Hematocrit 33.7 % (37-47); Hemoglobin 11.1 g/dL (12.0-15.0); Lymphocyte # 2.03 X10^3/ul (0.83-4.51); Lymphocyte % 23.8 % (19-41); Mean Corp Hgb Conc 32.9 g/dL (32-36); Mean Corpuscular Hgb 29.4 pg (27.0-32.0); Mean Corpuscular Volume 89.2 fL (81-99); Mean Platelet Vol. 11.7 fl (6.2-12.0); Monocyte# 0.72 X10^3/uL; Monocyte% 8.5 % (0-10); NRBC Flagged by Analyzer 0 % (0-5); Neutrophil # 5.51 X10^3/uL (2.7-7.7); Neutrophil % 64.6 % (47-70); Platelet Count 170 K/mm3 (150-450); RBC Distribution Width CV 12.3 % (11.6-14.6); RBC Distribution Width SD 40.7 fl (35.1-43.9); Red Blood Count 3.78 M/mm3 (4.2-5.4); White Blood Count 8.5 K/mm3 (4.4-11.0)
[2022-10-15] MEDS: 0.9% Normal Saline 1,000 ML 100 ML IV (06:46)
--- NOTE | 2022-10-15 06:46 | NURSING ---
Patient requested pain meds. When this RN arrived in room, patient was asleep.
[2022-10-15] MEDS: Ibuprofen 600 MG Tablet PO ×2 (06:47→13:46)
[2022-10-15 06:58] VITALS: BP 133/77; PULSE 53; RESP 18; TEMP 36.7; O2SAT 94
[2022-10-15] MEDS: 0.9% Saline Lock 10 ML Syringe IV (06:58)
--- NOTE | 2022-10-15 07:00 | PCM.PN.SRG ---
Subjective Subjective Patient says she is more comfortable today. She feels like things are moving forward and she is less nauseous. Objective Data Objective Data Vital Signs: Vital Signs Temp Pulse Resp BP Pulse Ox O2 Del Method 97.5 F L 90 18 134/91 H 97 Room Air 10/15/22 00:52 10/15/22 00:52 10/15/22 00:52 10/15/22 00:52 10/15/22 00:52 10/15/22 00:52 Oxygen Delivery Method Room Air Weight: 148 lb 7 oz Body Mass Index (BMI) 25.4 Intake & Output: Intake and Output for Last 24 Hours 10/13/22 10/14/22 10/15/22 23:59 23:59 23:59 Intake Total 3253.25 / 3253.25 1999 1020 / 1020 Output Total 750 / 750 Balance 2503.25 / 2503.25 1999 1020 / 1020 Lab / Micro Data Result Diagrams: 10/15/22 06:18 10/14/22 07:50 Labs: Laboratory Results - last 24 hr 10/14/22 07:50: WBC 13.1 H, RBC 4.26, Hgb 12.5, Hct 37.5, MCV 88.0, MCH 29.3, MCHC 33.3, RDW Std Deviation 38.8, RDW Coeff of Melchor 12.0, Plt Count 178, MPV 11.8, Immature Gran % (Auto) 0.600, Neut % (Auto) 82.9 H, Lymph % (Auto) 8.2 L, Yell % (Auto) 7.9, Eos % (Auto) 0.2, Baso % (Auto) 0.2, Absolute Neuts (auto) 10.9 H, Absolute Lymphs (auto) 1.08, Nucleated RBC % 0 10/14/22 07:50: Sodium 136, Potassium 4.1, Chloride 109 H, Carbon Dioxide 17.0 L, Anion Gap 10, BUN 5 L, Creatinine 0.70, Estim Creat Clear Calc 107.93, Est GFR (MDRD) Af Amer 134, Est GFR (MDRD) Non-Af 111, BUN/Creatinine Ratio 7.2 L, Glucose 97, Calcium 9.0 10/15/22 06:18: WBC 8.5, RBC 3.78 L, Hgb 11.1 L, Hct 33.7 L, MCV 89.2, MCH 29.4, MCHC 32.9, RDW Std Deviation 40.7, RDW Coeff of Melchor 12.3, Plt Count 170, MPV 11.7, Immature Gran % (Auto) 0.200, Neut % (Auto) 64.6, Lymph % (Auto) 23.8, Yell % (Auto) 8.5, Eos % (Auto) 2.5, Baso % (Auto) 0.4, Absolute Neuts (auto) 5.5, Absolute Lymphs (auto) 2.03, Nucleated RBC % 0 Physical Exam Const oriented x3 and no apparent distress Resp normal respiratory effort GI soft to palpation Inspection: Negative for abdominal distention Palpation: tender Assessment & Plan Assessment/Plan (1) Diverticulitis: PLAN: Patient appears more comfortable today. I will advance her to clear liquids. She can advance diet as tolerated. I will stop her IV fluids. We will try to transition her more to oral medications. Roberto Carlos Sesay MD Pager: [facility] [address] [place] [address], [address] [place] [address] Office:
[2022-10-15 07:01] LABS: Anion Gap 9 (5-15); BUN 6 mg/dL (7-18); BUN/Creat Ratio 9.1 RATIO (10-20); Calcium,Total 8.7 mg/dL (8.5-10.1); Chloride 110 mmol/L (98-107); Creatinine, Serum 0.66 mg/dL (0.55-1.02); EST Glomerular Filtration Rate 118 mL/min (>60); Est Glom Filt Rate - Afr Amer 143 mL/min (>60); Estimated Creatinine Clearance 114.48 ml/min; Glucose 70 mg/dL (74-106); Potassium 3.6 mmol/L (3.5-5.1); Sodium Level 138 mmol/L (136-145)
[2022-10-15 08:38] VITALS: BP 131/76; PULSE 61; RESP 16; TEMP 37.3; O2SAT 99
[2022-10-15] MEDS: Pantoprazole Sodium 40 MG Tablet PO (08:50)
[2022-10-15 13:36] VITALS: BP 134/99; PULSE 80; RESP 16; TEMP 37.2; O2SAT 99
--- NOTE | 2022-10-15 16:33 | DS.PCM_ITS ---
Providers Date of Admission: 10/11/22 Primary Care Physician: No Primary Care Phys Reason For Visit: DIVERTICULITIS Diagnosis Discharge Diagnosis (1) Diverticulitis: Status: Acute Code(s): K57.92 - Diverticulitis of intestine, part unspecified, without perforation or abscess without bleeding Plan: Patient appears more comfortable today. I will advance her to clear liquids. She can advance diet as tolerated. I will stop her IV fluids. We will try to transition her more to oral medications. Roberto Carlos Sesay MD Pager: [facility] [address] [place] [address], [address] [place] [address] Office: Medications at Discharge Home Medications etonogestrel 68 mg subdermal implant (Nexplanon) 68 mg subdermal Check with primary doctor 10/11/22 acetaminophen 325 mg tablet 650 mg PO Q4H PRN PRN Pain 1-10 Or Fever #0 tabs 10/15/22 ibuprofen 600 mg tablet 600 mg PO Q6H PRN PRN Pain 1-10 Or Fever #0 tabs 10/15/22 oxycodone 5 mg tablet 5 - 10 mg PO Q4H PRN PRN Pain Score 4-10 5 days #20 tabs 10/15/22 Hospital Course Operations colectomy Summary of Care Provided Hospital Course: Patient was admitted with inflammation of the cecum. It did not improve with conservative measures and she underwent ileocecectomy. After the procedure she was kept NPO until passing flatus. Once her pain was controlled by PO meds and she was tolerating diet she was discharged home Weight / BMI Weight Weight: 148 lb 7 oz Body Mass Index (BMI) 25.4 ABG / Lab / Microbiology Data Result Diagrams: 10/15/22 06:18 10/15/22 06:18 Laboratory: Laboratory Results - last 24 hr 10/15/22 06:18: WBC 8.5, RBC 3.78 L, Hgb 11.1 L, Hct 33.7 L, MCV 89.2, MCH 29.4, MCHC 32.9, RDW Std Deviation 40.7, RDW Coeff of Melchor 12.3, Plt Count 170, MPV 11.7, Immature Gran % (Auto) 0.200, Neut % (Auto) 64.6, Lymph % (Auto) 23.8, [place] % (Auto) 8.5, Eos % (Auto) 2.5, Baso % (Auto) 0.4, Absolute Neuts (auto) 5.5, Absolute Lymphs (auto) 2.03, Nucleated RBC % 0 10/15/22 06:18: Sodium 138, Potassium 3.6, Chloride 110 H, Carbon Dioxide 19.0 L , Anion Gap 9, BUN 6 L, Creatinine 0.66, Estim Creat Clear Calc 114.48, Est GFR (MDRD) Af Amer 143, Est GFR (MDRD) Non-Af 118, BUN/Creatinine Ratio 9.1 L, Glucose 70 L, Calcium 8.7 D/C Instructions Discharge Diet: Light diet - advance as tolerated Discharge Activity: May Drive (when off narcotics) and May Shower Lifting Restricted to (Lbs): 15 Lifting Restrictions: 15 lbs for 4 weeks Call your doctor if your incision/area has: Continuous Slow Oozing, Sudden Increased Bleeding, Increased Pain/ Swelling, Increased Redness, Foul Smelling Discharge and Swelling at the incision site Call your doctor if you observe: Fever of 101 or Higher and Inability to have a bowel movement Remove Dressing in: 1 day (Remove bandage tomorrow, remove steri strips in 7-10 days) Cleanse incision/area with: Soap & Water Please Follow Up With: Roberto Carols Sesay MD When: Call to make 1 week follow up appt [phone] Meaningful Use Info Meaningful Use Diagnoses (Choose all that apply): None applicable Discharge Plan Admission Admit Date/Time: 10/11/22 23:31 Attending Provider: Roberto Carlos Sesay Primary Care Provider: Joi Emerson Primary Discharge Orders/Prescriptions Prescriptions: New acetaminophen 325 mg Tablet 650 mg PO Q4H PRN PRN (Reason: Pain 1-10 Or Fever) Qty: 0 0RF ibuprofen 600 mg Tablet 600 mg PO Q6H PRN PRN (Reason: Pain 1-10 Or Fever) Qty: 0 0RF oxycodone 5 mg Tablet 5 - 10 mg PO Q4H PRN PRN (Reason: Pain Score 4-10) 5 Days Qty: 20 0RF Continued Nexplanon 68 mg Implant 68 mg SUBDERMAL Referrals / Follow Up: Care Physician,No Primary [Primary Care Provider] - Disposition Disposition (needs filled in before D/C Order can be placed): Home, Self Care
== END 2022-10-15 17:30 | disposition home or self-care (01) | DRG 231 ==
LOC: ED 21:44 → MS3 23:45
PROVIDERS: Admitting Provider Surgery; Emergency Provider Emergency Medicine; Visit Provider Surgery
PROC: 0DTH4ZZ Resection of Cecum, Percutaneous Endoscopic Approach (ICD-10-PCS; principal; 2022-10-13 09:45)
DX: K57.32 Diverticulitis of large intestine without perforation or abscess without bleeding (principal); F17.290 Nicotine dependence, other tobacco product, uncomplicated; Z83.79 Family history of other diseases of the digestive system
CPT/HCPCS: 36415; 74177; 80048; 84703; 85025; 85652; 88307; 99284; 99406; J7030; J7040; J7050; J7120; Q9967; A4216; C1760; J2405

== ENCOUNTER 2023-02-09 16:59 | Emergency (ER) | payer MEDICAID, SELFPAY ==
[2023-02-09 17:02] VITALS: BP 102/77; PULSE 100; RESP 20; TEMP 36.3; O2SAT 98; BMI 21.9
--- NOTE | 2023-02-09 17:33 | EX.ED.DYSGE1 ---
HPI History of Present Illness Chief Complaint: Nausea/Vomiting Informant: patient and spouse/S.O. Narrative Narrative: 22-year-old female presenting to the emergency room with vomiting diarrhea and abdominal cramping. Patient states that earlier this year she had surgery for diverticulitis. She states she has been doing well. This morning at around 0100 hrs. she had vomiting and diarrhea. She subsequently developed cramping particular in the left lower quadrant. No blood in the vomit or the diarrhea. No fevers. She states that she thought perhaps she just had a stomach illness or possibly a food poisoning from eating [employer] but no one else is sick at home. She denies urinary symptoms. PFSH PFSH Medical History ADHD Anxiety Asthma Asthma Chlamydia infection affecting Depression Depression with anxiety Diverticulitis GERD (gastroesophageal reflux disease) Injury of head and neck Marijuana use Migraines Nicotine use Smoker Home Medications etonogestrel 68 mg subdermal implant (Nexplanon) 68 mg subdermal Check with primary doctor 10/11/22 [History Last Taken 10/11/22 08:00] acetaminophen 325 mg tablet 650 mg (2 x 325 mg) PO Q4H PRN PRN Pain 1-10 Or Fever #0 tabs 10/15/22 [Rx Last Taken Unknown] ibuprofen 600 mg tablet 600 mg PO Q6H PRN PRN Pain 1-10 Or Fever #0 tabs 10/15/22 [Rx Last Taken Unknown] oxycodone 5 mg tablet 5 - 10 mg (1 - 2 x 5 mg) PO Q4H PRN PRN Pain Score 4-10 5 days #20 tabs 10/15/22 [Rx Last Taken Unknown] ondansetron 4 mg disintegrating tablet 4 mg PO Q8H PRN PRN Nausea #20 tabs 02/09/23 [Rx Last Taken Unknown] Allergy/AdvReac Type Severity Reaction Status Date / Time No Known Allergies Allergy Verified 02/09/23 17:02 Family History Father Hypertrophic cardiomyopathy Grandfather Hypertrophic cardiomyopathy Surgical History History of tonsillectomy Social History Smoking Status: Current every day smoker tobacco type: e-cigarettes alcohol intake: current ROS ROS ED Constitutional Constitutional ED: Denies chills, fever(s) or weight loss Eyes Eyes: Denies change in vision or diplopia ENT ENT ED: Denies ear pain, rhinorrhea or sore throat Cardiovascular Cardiovascular: Denies chest pain, orthopnea, palpitations or racing heartbeat Respiratory/Chest Respiratory/Chest: Denies cough, dyspnea or orthopnea Gastrointestinal Gastrointestinal: Reports abdominal pain, diarrhea, nausea and vomiting Genitourinary Genitourinary ED: Denies dysuria, hematuria or urinary frequency Musculoskeletal Musculoskeletal: Denies arthralgias or myalgias Integumentary Denies abscess or rash Neurologic Neurologic: Denies headache(s) or weakness Psychiatric Psychiatric: Denies anxiety, depression, suicidal ideation or suicidal thoughts Endocrine Endocrinology: Denies polydipsia, polyphagia or polyuria Allergic/Immunologic Allergic/Immunologic ED: Denies mouth swelling, tongue swelling or urticaria EXAM Physical Exam Const Vital Signs: 02/09/23 17:02 Temperature 97.4 F L Temperature Source Temporal Pulse Rate 100 Respiratory Rate 20 H Blood Pressure 102/77 Blood Pressure Mean 85 Pulse Ox 98 Oxygen Delivery Method Room Air Positive well nourished and well developed General Appearance ED: well developed HEENT Reports normocephalic, head/scalp atraumatic and moist mucous membranes Eyes PERRL and EOMs intact bilaterally Neck no lymphadenopathy, supple and no JVD Resp normal respiratory effort and clear to auscultation bilaterally Cardio regular rate, regular rhythm and no murmurs GI GI Narrative: Patient rise and guards when I placed the bowel of the stethoscope on her abdomen. The abdomen is soft. Palpation: soft Back/Spine no CVA tenderness and normal ROM Extremity normal to inspection General Extremety ED: Negative for edema General Extremity: Negative for edema Neuro oriented x3 and CN's II-XII intact bilaterally Sensorium / Orientation: alert Motor Exam: strength 5/5 throughout Psych mental status grossly normal Mood & Affect: Negative for depressed or tearful Skin no rashes or lesions noted and no wounds MDM MDM MDM Narrative Medical decision making narrative: Patient's white count is 10. No left shift. test is negative. CMP is normal and lipase is normal. Urinalysis shows no overt infection. Patient received some fluids through the IV as well as some Toradol. She continued to have pain but was able to lay in the bed with her significant other. She then informed nursing that she needed to get home to her children and is requesting discharge. At this point I do not believe the patient has diverticulitis based on the physical exam. I advised her that if her pain worsenings or she has fever or concerning symptoms she should return. She has not vomited since around 11 this morning (8 1/2 hours). She has requested nausea medication at home. Lab Data Attestation: I reviewed the patient's lab results. Labs: Laboratory Results - last 24 hr 02/09/23 02/09/23 18:10 19:10 WBC 10.1 RBC 4.94 Hgb 14.6 Hct 43.7 MCV 88.5 MCH 29.6 MCHC 33.4 RDW Std Deviation 40.5 RDW Coeff of Melchor 12.5 Plt Count 186 MPV 11.1 Immature Gran % (Auto) 0.400 Neut % (Auto) 63.5 Lymph % (Auto) 23.0 [place] % (Auto) 5.8 Eos % (Auto) 6.8 H Baso % (Auto) 0.5 Absolute Neuts (auto) 6.4 Absolute Lymphs (auto) 2.33 Nucleated RBC % 0 Sodium 140 Potassium 3.8 Chloride 110 H Carbon Dioxide 26.0 Anion Gap 4 L BUN 12 Creatinine 0.98 Estim Creat Clear Calc 77.10 Est GFR (MDRD) Af Amer 90 Est GFR (MDRD) Non-Af 74 BUN/Creatinine Ratio 12.3 Glucose 91 Calcium 9.1 Total Bilirubin 0.70 Direct Bilirubin 0.18 AST 9 L ALT 16 Alkaline Phosphatase 70 Total Protein 7.0 Albumin 3.9 Globulin 3.1 Lipase 66 Serum , Qual NEGATIVE Urine Color Yellow Urine Clarity Clear Urine pH 6.0 Ur Specific [place] 1.020 Urine Protein 30 H Urine Glucose (UA) Normal Urine Ketones 5 H Urine Occult Blood Negative Urine Nitrite Negative Urine Bilirubin 1 H Urine Urobilinogen Normal Ur Leukocyte Esterase 25 H Urine RBC 0 SEEN Urine WBC 0-5 SEEN Ur Squamous Epith Cells 0-5 SEEN Urine Bacteria 0 SEEN Urine Mucus 0 SEEN Discharge Plan Triage Chief Complaint: Nausea/Vomiting ED Provider: Kirby Camara Dx/Rx/DC Orders Clinical Impression: Gastroenteritis, Abdominal pain Instructions: ED Gastroenteritis, Viral (Adult) Prescriptions: New ondansetron [ondansetron] 4 mg tablet,disintegrating 4 mg PO Q8H PRN PRN (Reason: Nausea) Qty: 20 0RF No Action Nexplanon 68 mg Implant 68 mg SUBDERMAL acetaminophen 325 mg Tablet 650 mg PO Q4H PRN PRN (Reason: Pain 1-10 Or Fever) Qty: 0 0RF ibuprofen 600 mg Tablet 600 mg PO Q6H PRN PRN (Reason: Pain 1-10 Or Fever) Qty: 0 0RF oxycodone 5 mg Tablet 5 - 10 mg PO Q4H PRN PRN (Reason: Pain Score 4-10) 5 Days Qty: 20 0RF Primary Care Provider: Care Physician,No Primary Referrals: Aris Soto MD [Med Staff - Curriculum And Assessment Coordinator] - 3-5 Days if not improving Care Physician,No Primary [Primary Care Provider] - Disposition Disposition: Home, Self Care
[2023-02-09] MEDS: 0.9% Normal Saline 1,000 ML 1000 ML IV (18:11)
[2023-02-09 18:20] LABS: Absolute Lymphocyte Count 2.33 X10^3/uL (0.83-4.51); Absolute Neutrophil Count 6.4 X10^3/uL (2.0-7.7); Basophil# 0.05 X10^3/uL; Basophil% 0.5 % (0-1); Eosinophil# 0.69 X10^3/uL; Eosinophils% 6.8 % (0-5); Hematocrit 43.7 % (37-47); Hemoglobin 14.6 g/dL (12.0-15.0); Lymphocyte # 2.33 X10^3/ul (0.83-4.51); Mean Corp Hgb Conc 33.4 g/dL (32-36); Mean Corpuscular Hgb 29.6 pg (27.0-32.0); Mean Corpuscular Volume 88.5 fL (81-99); Mean Platelet Vol. 11.1 fl (6.2-12.0); Monocyte# 0.59 X10^3/uL; Monocyte% 5.8 % (0-10); NRBC Flagged by Analyzer 0 % (0-5); Neutrophil # 6.41 X10^3/uL (2.7-7.7); Neutrophil % 63.5 % (47-70); Platelet Count 186 K/mm3 (150-450); RBC Distribution Width CV 12.5 % (11.6-14.6); RBC Distribution Width SD 40.5 fl (35.1-43.9); Red Blood Count 4.94 M/mm3 (4.2-5.4); White Blood Count 10.1 K/mm3 (4.4-11.0)
[2023-02-09 18:28] LABS: Internal QC Validated? YES +Cl - CLEAR BKGD; Pregnancy, Serum, hCG Quali. NEGATIVE Negative; Record Kit Lot#, Serum Preg. 667200
[2023-02-09 18:36] LABS: AST(SGOT) 9 U/L (15-37); Alanine Aminotransfer ALT/SGPT 16 U/L (13-56); Albumin, Serum 3.9 g/dL (3.2-5.0); Alkaline Phosphatase 70 U/L (45-117); Anion Gap 4 (5-15); BUN 12 mg/dL (7-18); BUN/Creat Ratio 12.3 RATIO (10-20); Bilirubin, Direct 0.18 mg/dL (0.00-0.30); Calcium,Total 9.1 mg/dL (8.5-10.1); Chloride 110 mmol/L (98-107); Creatinine, Serum 0.98 mg/dL (0.55-1.02); EST Glomerular Filtration Rate 74 mL/min (>60); Est Glom Filt Rate - Afr Amer 90 mL/min (>60); Globulin 3.1 g/dL (2.2-4.2); Glucose 91 mg/dL (74-106); Lipase 66 U/L (13-75); Potassium 3.8 mmol/L (3.5-5.1); Sodium Level 140 mmol/L (136-145)
[2023-02-09] MEDS: Ketorolac 15 MG/ML Vial IV (18:52)
[2023-02-09 19:19] LABS: Bacteria 0 SEEN /hpf (None Seen); Color, Urine Yellow (Yellow); Glucose, Dipstick Normal (Normal); Ketone-Dipstick 5 mg/dl (Negative); Leukocyte Esterase-Dipstick 25 /ul (Negative); Mucous, Urine 0 SEEN /hpf (<or=2+); Nitrite-Dipstick Negative (Negative); Occult Blood-Urine Negative /ul (Negative); Protein-Dipstick 30 mg/dl (Negative); Red Blood Cells-Urine 0 SEEN /hpf (0-5); Urine Clarity Clear (Clear); Urine Urobilinogen Normal (Normal)
[2023-02-09 19:21] LABS: Urine Bilirubin Dipstick 1 mg/dL (Negative)
[2023-02-09 19:25] LABS: Squamous Epithelial Cells - UA 0-5 SEEN /hpf (5-10); White Blood Cells 0-5 SEEN /hpf (0-5)
[2023-02-09 19:29] VITALS: BP 110/70; PULSE 69; RESP 16; O2SAT 97
== END 2023-02-09 19:44 | disposition home or self-care (01) ==
PROVIDERS: Emergency Provider Emergency Medicine; Visit Provider Emergency Medicine
DX: K52.9 Noninfective gastroenteritis and colitis, unspecified (principal); F17.290 Nicotine dependence, other tobacco product, uncomplicated; R10.32 Left lower quadrant pain
CPT/HCPCS: 80048; 80076; 81001; 83690; 84703; 85025; 96361; 96374; 99283; J7030; A4216

== ENCOUNTER 2023-06-27 18:35 | Emergency (ER) | payer MEDICAID, SELFPAY ==
[2023-06-27 18:36] VITALS: BP 116/70; PULSE 87; RESP 18; TEMP 36.9; O2SAT 100; BMI 24.0
[2023-06-27] MEDS: 0.9% Normal Saline (1000mL) 1,000 ML 1000 ML IV (18:55)
--- NOTE | 2023-06-27 18:59 | EDS_ITS ---
HPI HPI - GI History of Present Illness Chief Complaint: Abd Pain Narrative Narrative: 23-year-old female presenting with left sided abdominal pain. She describes it as sharp. It has been there for the last couple of weeks but worse over the last 4 days. Patient states she believes she had food poisoning from [employer] on Friday and she believes that the crab [place] is what made her sick. She states it tasted foul. She vomited that night. She has not any fevers but did complain of some chills and sweating. Patient is also had some diarrhea. Patient does state that she has a little bit of mild dysuria but also states that she thought it was from a bubble bath. She does not have a strong history of UTIs. Denies concern for STD. No vaginal complaints. Patient reports that she previous had diverticulitis and a large diverticulum which required surgical intervention and surgery to remove part of her bowel. This was here at [facility]. Patient denies any history of bowel obstruction. No history of kidney stones. No concern for as she is on control. PFSH PFSH Medical History ADHD Anxiety Asthma Asthma Chlamydia infection affecting Depression Depression with anxiety Diverticulitis GERD (gastroesophageal reflux disease) Injury of head and neck Marijuana use Migraines Nicotine use Smoker Home Medications etonogestrel 68 mg subdermal implant (Nexplanon) 68 mg subdermal X1 Check with primary doctor 10/11/22 [History Last Taken 10/11/22 08:00] acetaminophen 325 mg tablet 650 mg (2 x 325 mg) PO Q4H PRN PRN Pain 1-10 Or Fever #0 tabs 10/15/22 [Rx Last Taken Unknown] ibuprofen 600 mg tablet 600 mg PO Q6H PRN PRN Pain 1-10 Or Fever #0 tabs 10/15/22 [Rx Last Taken Unknown] ondansetron 4 mg disintegrating tablet 4 mg PO Q8H PRN PRN Nausea #20 tabs 02/09/23 [Rx Last Taken Unknown] dicyclomine 10 mg capsule 10 mg PO TID PRN abdominal pain #20 caps 06/27/23 [Rx Last Taken Unknown] ondansetron 4 mg disintegrating tablet 4 mg PO Q8H PRN PRN Nausea #20 tabs 06/27/23 [Rx Last Taken Unknown] Allergy/AdvReac Type Severity Reaction Status Date / Time No Known Allergies Allergy Verified 06/27/23 18:36 Family History Father Hypertrophic cardiomyopathy Grandfather Hypertrophic cardiomyopathy Surgical History History of tonsillectomy Social History Smoking Status: Current every day smoker tobacco type: e-cigarettes alcohol intake: current ROS ROS ED Constitutional Constitutional ED: Denies chills, fever(s) or sweats Eyes Eyes: Denies blurry vision or change in vision ENT ENT ED: Denies ear pain or sore throat Cardiovascular Cardiovascular: Denies chest pain, palpitations or racing heartbeat Respiratory/Chest Respiratory/Chest: Denies cough, dyspnea or sputum Gastrointestinal Gastrointestinal: Reports abdominal pain, diarrhea and nausea; Denies constipation or vomiting Genitourinary Genitourinary ED: Denies dysuria, hematuria or urinary frequency Musculoskeletal Musculoskeletal: Denies arthralgias, myalgias or neck pain Integumentary Denies abscess, Abrasions or rash Neurologic Neurologic: Denies headache(s), paresthesias or weakness Psychiatric Psychiatric: Denies anxiety, depression, suicidal ideation or suicidal thoughts Endocrine Endocrinology: Denies polydipsia or polyuria EXAM Physical Exam Const Vital Signs: 06/27/23 18:36 06/27/23 20:18 06/27/23 21:00 Temperature 98.5 F 97.9 F Temperature Source Temporal Oral Pulse Rate 87 69 86 Respiratory Rate 18 16 16 Blood Pressure 116/70 128/77 H 132/78 H Blood Pressure Mean 85 94 96 Pulse Ox 100 98 98 Oxygen Delivery Method Room Air Room Air Room Air Positive well nourished General Appearance ED: NAD; Negative for pallor HEENT Reports moist mucous membranes normocephalic and atraumatic Eyes PERRL and EOMs intact bilaterally Resp normal respiratory effort Cardio regular rate and regular rhythm GI non-distended and no masses Palpation: soft; Negative for guarding, rigid, hepatomegaly, splenomegaly, hernia or mass Neuro CN's II-XII intact bilaterally Sensorium / Orientation: alert Motor Exam: strength 5/5 throughout Psych mental status grossly normal Skin General Skin Exam: Negative for jaundice or pallor MDM MDM MDM Narrative Medical decision making narrative: 23-year-old female presenting with abdominal pain for the last few weeks. It is left-sided. Is worsened over the last 4 days but she admits she had some recent food poisoning from [employer]. No fevers. Patient also has previous surgical history secondary to diverticulitis and a diverticulum at the cecum. Differential includes small bowel obstruction, diverticulitis, pancreatitis, colitis, UTI, pyelonephritis, kidney stone, pancreatitis, dehydration, electrolyte abnormalities, constipation. CBC to assess white blood cell count, hemoglobin, platelets. CMP to assess liver function, renal function and electrolytes. Lipase to assess for pancreatitis. Urinalysis to assess for UTI. hCG to assess for . CBC shows normal white blood cell count 8.9. Hemoglobin 12.7. Platelets normal at 188. Renal function electrolytes within the limits. LFTs are normal. Lipase within normal limits.Urinalysis negative for infection. hCG negative. After Toradol patient states her pain is already better. Reevaluation at 8:35 PM and the patient is laying on her left side in the position stating her pains come back. Initially she was smiling and joking but then became tearful. This point I gave her some morphine and Zofran. Will obtain a CT of the abdomen pelvis IV contrast. Reevaluation at 10:11 PM. Patient doing well. CT of the abdomen pelvis was negative. Discussed results with her. Will give the patient some Bentyl, Zofran for home. I recommended s he follow-up with Dr. Sesay. Return precautions discussed. Impression: 1. Abdominal pain 2. Nausea/vomiting Lab Data Labs: Laboratory Results - last 24 hr 06/27/23 06/27/23 18:50 18:55 WBC 8.9 RBC 4.33 Hgb 12.7 Hct 38.5 MCV 88.9 MCH 29.3 MCHC 33.0 RDW Std Deviation 39.9 RDW Coeff of Melchor 12.2 Plt Count 188 MPV 11.6 Immature Gran % (Auto) 0.300 Neut % (Auto) 44.4 L Lymph % (Auto) 38.9 [place] % (Auto) 6.7 Eos % (Auto) 8.8 H Baso % (Auto) 0.9 Absolute Neuts (auto) 4.0 Absolute Lymphs (auto) 3.46 Nucleated RBC % 0 Sodium 142 Potassium 4.1 Chloride 113 H Carbon Dioxide 26.0 Anion Gap 3 L BUN 9 Creatinine 0.98 Estim Creat Clear Calc 76.44 Est GFR (MDRD) Af Amer 89 Est GFR (MDRD) Non-Af 74 BUN/Creatinine Ratio 9.2 L Glucose 87 Calcium 8.8 Total Bilirubin 0.20 AST 8 L ALT 15 Alkaline Phosphatase 62 Total Protein 6.5 Albumin 3.6 Globulin 2.9 Albumin/Globulin Ratio 1.2 Lipase 28 Serum , Qual NEGATIVE Urine Color Yellow Urine Clarity Clear Urine pH 6.0 Ur Specific [place] 1.020 Urine Protein 30 H Urine Glucose (UA) Normal Urine Ketones 5 H Urine Occult Blood 10 H Urine Nitrite Negative Urine Bilirubin 1 H Urine Urobilinogen 4 H Ur Leukocyte Esterase 25 H Urine RBC 0 SEEN Urine WBC 0-5 SEEN Ur Squamous Epith Cells 5-10 SEEN Urine Bacteria 0 SEEN Urine Mucus 0 SEEN Radiography Diagnostic Testing: Clinical Impression(s) from Imaging Studies Abdomen/Pelvis CT 06/27/23 20:38 IMPRESSION: Normal enhanced CT of the abdomen and pelvis. Electronically Signed: Isidro Odell MD at 21:32 EST , Discharge Plan Triage Chief Complaint: Abd Pain ED Provider: Ever Hanks Dx/Rx/DC Orders Instructions: ED Abdominal Pain Unkn Cause Fem Prescriptions: New dicyclomine 10 mg capsule 10 mg PO TID PRN (Reason: abdominal pain) Qty: 20 0RF ondansetron 4 mg tablet,disintegrating 4 mg PO Q8H PRN PRN (Reason: Nausea) Qty: 20 0RF No Action Nexplanon 68 mg Implant 68 mg SUBDERMAL X1 acetaminophen 325 mg Tablet 650 mg PO Q4H PRN PRN (Reason: Pain 1-10 Or Fever) Qty: 0 0RF ibuprofen 600 mg Tablet 600 mg PO Q6H PRN PRN (Reason: Pain 1-10 Or Fever) Qty: 0 0RF ondansetron [ondansetron] 4 mg tablet,disintegrating 4 mg PO Q8H PRN PRN (Reason: Nausea) Qty: 20 0RF Primary Care Provider: Care Physician,No Primary Referrals: Roberto Carlos Sesay MD [Med Staff - Active Staff] - 3-5 Days Care Physician,No Primary [Primary Care Provider] - Disposition Disposition: Home, Self Care
[2023-06-27 19:03] LABS: Bacteria 0 SEEN /hpf (None Seen); Mucous, Urine 0 SEEN /hpf (<or=2+); Red Blood Cells-Urine 0 SEEN /hpf (0-5)
--- OUTSIDE RECORDS SUMMARY | 2023-06-27 19:03 | XMS RPT_ITS | CCD ---
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 stature resolved Unspecified asthma(493.90) PAST SURGICAL HISTORY Procedure Laterality Date NEXPLANON INSERTION 06/22/2015 removed 04/2017 NEXPLANON INSERTION 02/2018 removed 08/01/2020 NEXPLANON INSERTION Left 01/01/2022 TONSILLECTOMY & ADENOIDECTOMY <AGE 11 ALLERGIES Seasonal Allergies MEDICATIONS cetirizine (ZYRTEC) 10 mg tablet Take 1 tablet by mouth once daily. etonogestrel (NEXPLANON) subdermal implant 68 mg 1 Each by SUBDERMAL route as directed. etonogestrel (NEXPLANON) subdermal implant 68 mg 68 mg by SUBDERMAL route continuous. etonogestrel subdermal implant 68 mg (NEXPLANON) 1 Each by SUBDERMAL route one time only for 1 dose. FAMILY HISTORY Problem Relation Age of Onset Hypertension Mother Cardiomyopathy Father Crohn's Disease Brother Hypertension Maternal Grandmother Psychiatry Maternal Grandfather anxiety Prostate Cancer Maternal Grandfather Heart Paternal Grandfather of heart attack Social History Tobacco Use Smoking status: Former Packs/day: 0.25 Years: 7.00 Total pack years: 1.75 Types: Cigarettes Smokeless tobacco: Never Tobacco comments: 7 cigarettes a day Vaping Use Vaping Use: Former Substances: Nicotine, THC Devices: Disposable Substance Use Topics Alcohol use: No Drug use: Yes Types: Marijuana Comment: for depression, anxiety and PTSD BP 110/76 Pulse 108 Temp 36.9 C (98.4 F) (Tympanic) Resp 16 Wt 59 kg (130 lb) LMP 01/04/2022 BMI 22.67 kg/m Review of Systems Constitutional: Negative for chills, fever and malaise/fatigue. HENT: Negative for congestion, ear discharge, ear pain, sinus pain and sore throat. Eyes: Negative for blurred vision, pain, discharge and redness. Respiratory: Negative for cough, hemoptysis, sputum production, shortness of breath, wheezing and stridor. Cardiovascular: Negative for chest pain. Gastrointestinal: Negative for abdominal pain, diarrhea, nausea and vomiting. Genitourinary: Negative. Musculoskeletal: Negative for myalgias. Skin: Negative for itching and rash. Neurological: Negative for dizziness and headaches. Objective Physical Exam Constitutional: General: She is not in acute distress. Appearance: She is not toxic-appearing. HENT: Head: Normocephalic. Nose: Nose normal. Eyes: Pupils: Pupils are equal, round, and reactive to light. Cardiovascular: Rate and Rhythm: Normal rate. Pulmonary: Effort: Pulmonary effort is normal. No respiratory distress. Abdominal: Tenderness: There is no abdominal tenderness. There is no right CVA tenderness, left CVA tenderness, guarding or rebound. Musculoskeletal: Cervical back: Normal range of motion. Skin: General: Skin is warm and dry. Neurological: General: No focal deficit present. Mental Status: She is alert. ASSESSMENT/PLAN: 1. Vaginal discharge - ICD9: 623.5, ICD10: N89.8 (primary diagnosis) - GONORRHEA/CHLAMYDIA NAAT - TRACEY/TRICHOMONAS NAAT - BACTERIAL VAGINOSIS NAAT 2. Foul smelling urine - ICD9: 791.9, ICD10: R82.90 Urine dip negative for acute cystitis. Urine culture ordered. Results pending. Vaginal self swabs obtained. Treat according to test results Patient was educated on supportive therapies. Patient will follow up with primary care provider as needed. Patient was instructed to immediately proceed to emergency room for any new, worsening, or symptoms lasting longer than anticipated. The patient's clinical presentation is otherwise unremarkable at this time. Based on exam and clinical finding, the patient is stable for discharge. Plan of care was discussed with patient. Patient verbalizes understanding and agrees to plan of care. This note was generated using [employer] software. It may contain errors in wording, punctuation, or spelling. Jagdish Metzger APRN.BATOOL documented in this encounter [facility] 10-28-2022 Note HNO ID: [id number] Author: Almaz Ha APRN.BATOOL Service: ? Author Type: Nurse Practitioner Type: Progress Notes Filed: 10/28/2022 5:50 PM Note Text: Subjective The history is provided by the patient. No language path was used. SHAZIA Osman is a 22 year old female who presents today for CC of burning and frequency for 3 days. She denies any fever, chills, body aches or vomiting. She also is having vaginal discharge itching and burning. She denies any sore or lesions. Possible exposure to STD's BP 102/64 Pulse 112 Temp 36.6 ?C (97.8 ?F) Resp 21 Wt 65.3 kg (144 lb) LMP 01/04/2022 SpO2 98% BMI 25.11 kg/m? Social History Tobacco Use Smoking status: Former Packs/day: 0.25 Years: 7.00 Pack years: 1.75 Types: Cigarettes Smokeless tobacco: Never Tobacco comments: 7 cigarettes a day Vaping Use Vaping Use: Former Substances: Nicotine, THC Devices: Disposable Substance Use Topics Alcohol use: No Drug use: Yes Types: Marijuana Comment: for depression, anxiety and PTSD PAST MEDICAL HISTORY Diagnosis Date Acute bronchiolitis due to respiratory syncytial virus (RSV) resolved Asthma no asthma attacks in several years Attention deficit hyperactivity disorder (ADHD), combined type 01/25/2015 Chlamydia trachomatis infection in in first trimester 05/21/2021 11/14/21- ALLEN negative. Viky Stubbs APRN.CNM Chlamydia positive again 10/19/21. SW Depression 10/11/2014 Hospitalized 10/03/2014. Dysmenorrhea 05/31/2013 Family history of hypertrophic cardiomyopathy 11/01/2015 Fatigue 05/31/2013 Menarche 11/2011 Age 11 Nexplanon insertion 02/2018 Left arm PTSD (post-traumatic stress disorder) Short stature resolved Unspecified asthma(493.90) I have confirmed and edited as necessary, the [facility] Review of Systems Constitutional: Negative for chills and fever. Gastrointestinal: Negative for abdominal pain. Genitourinary: Positive for dysuria, frequency and urgency. Negative for flank pain and hematuria. Objective Physical Exam Vitals and nursing note reviewed. Constitutional: Appearance: Normal appearance. Abdominal: General: Bowel sounds are normal. There is no abdominal bruit. Palpations: Abdomen is not rigid. There is no mass or pulsatile mass. Tenderness: There is no abdominal tenderness. There is no guarding or rebound. Negative signs include Pratt's sign and McBurney's sign. Neurological: Mental Status: She is alert and oriented to person, place, and time. Psychiatric: Mood and Affect: Affect normal. Pelvic exam declined will self swab. Component Latest Ref Rng AND Units 10/28/2022 GLUCOSE UA (POCT) Negative mg/dL Negative BILIRUBIN UA (POCT) Negative Negative KETONE UA (POCT) Negative mg/dL Negative SPECIFIC GRAVITY UA (POCT) 1.005 - 1.030 1.020 HEMOGLOBIN/BLOOD UA (POCT) Negative Negative PH UA (POCT) 4.5 - 8.0 6.0 PROTEIN UA (POCT) Negative mg/dL Negative UROBILINOGEN UA (POCT) Normal E.U./dL 0.2 NITRITE UA (POCT) Negative Negative LEUKOCYTES UA (POCT) Negative Negative COLOR UA (POCT) Yellow CLARITY UA (POCT) Clear ASSESSMENT/PLAN: 1. Urinary frequency - ICD9: 788.41, ICD10: R35.0 (primary diagnosis) acute - UA negative - Send urine for culture - Will call if culture positive, and if any treatment needed - UA DIP, URINE (POC) - URINE CULTURE 2. Acute vaginitis - ICD9: 616.10, ICD10: N76.0 No treatment at this time cultures sent will call with results and treatment as indicated. - GC/CHLAMYDIA DNA DET - BACTERIAL VAGINOSIS AMPLIFICATION - TRACEY / TRICHOMONAS AMPLIFICATION Diagnosis and treatment plan were discussed and questions were answered to the patient's satisfaction. Pt acknowledged understanding of concepts and follow up plan. Specific signs and symptoms that would indicate the need for higher level of care were discussed in detail warranting prompt ER evaluation. Almaz Ha APRN.[facility] 10-11-2022 Miscellaneous Notes Reason for Call: Severe right sided abdominal pain Outcome: Go to ED now. Patient acknowledges understanding and states she will go to ED now. Reason for Disposition [1] SEVERE pain (e.g., excruciating) AND [2] present > 1 hour Protocols used: Abdominal Pain - [id number] Patient states she started period yesterday, started having abdominal pain. The pain has increased and is excruciating on her right side. documented in this encounter [facility] 05-12-2022 History of Presen t illness Narrative Subjective The history is provided by the patient. No language path was used. HPI Natan Osman is a 22 year old female who presents today for CC of right ear pain for one day. Over the past week she has had cough, congestion, runny nose. She has used OTC cough and cold medications with slight relief. She is an every day smoker. BP 118/82 Pulse 102 Temp 36.9 C (98.4 F) Resp 18 Wt 72.8 kg (160 lb 9.6 oz) LMP 01/04/2022 SpO2 99% BMI 28.00 kg/m Social History Tobacco Use Smoking status: Former Packs/day: 0.25 Years: 7.00 Pack years: 1.75 Types: Cigarettes Smokeless tobacco: Never Tobacco comments: 7 cigarettes a day Vaping Use Vaping Use: Former Substances: Nicotine, THC Devices: Disposable Substance Use Topics Alcohol use: No Drug use: Yes Types: Marijuana Comment: for depression, anxiety and PTSD PAST MEDICAL HISTORY Diagnosis Date Acute bronchiolitis due to respiratory syncytial virus (RSV) resolved Asthma no asthma attacks in several years Attention deficit hyperactivity disorder (ADHD), combined type 01/25/2015 Chlamydia trachomatis infection in in first trimester 05/21/2021 11/14/21- ALLEN negative. 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 SW Depression 10/11/2014 Hospitalized 10/03/2014. Dysmenorrhea 05/31/2013 Family history of hypertrophic cardiomyopathy 11/01/2015 Fatigue 05/31/2013 Menarche 11/2011 Age 11 Nexplanon insertion 02/2018 Left arm PTSD (post-traumatic stress disorder) Short stature resolved Unspecified asthma(493.90) I have confirmed and edited as necessary, the [facility] Review of Systems Constitutional: Negative for chills and fever. HENT: Positive for congestion. Negative for ear pain, sinus pain and sore throat. Respiratory: Positive for cough. Negative for sputum production, shortness of breath and wheezing. Cardiovascular: Negative for chest pain. Musculoskeletal: Negative for myalgias. Neurological: Negative for headaches. Objective Physical Exam Vitals and nursing note reviewed. HENT: Head: Normocephalic and atraumatic. Right Ear: Ear canal and external ear normal. A middle ear effusion is present. Tympanic membrane is erythematous and bulging. Left Ear: Tympanic membrane, ear canal and external ear normal. Nose: No mucosal edema, congestion or rhinorrhea. Right Sinus: No maxillary sinus tenderness or frontal sinus tenderness. Left Sinus: No maxillary sinus tenderness or frontal sinus tenderness. Mouth/Throat: Pharynx: Uvula midline. No oropharyngeal exudate or posterior oropharyngeal erythema. Cardiovascular: Rate and Rhythm: Normal rate and regular rhythm. Heart sounds: Normal heart sounds. Pulmonary: Effort: Pulmonary effort is normal. Breath sounds: Normal breath sounds. Lymphadenopathy: Head: Right side of head: No submental, submandibular or tonsillar adenopathy. Left side of head: No submental, submandibular or tonsillar adenopathy. Cervical: No cervical adenopathy. Skin: General: Skin is warm and dry. Neurological: Mental Status: She is alert. Psychiatric: Mood and Affect: Affect normal. ASSESSMENT/PLAN: 1. Acute suppr otitis media w/o spon rupt ear drum, right ear - ICD9: 382.00, ICD10: H66.001 (primary diagnosis) - Will begin treatment with Amoxicillin for 7 days - Supportive care with plenty of fluids, rest, and analgesia prn. - Follow up in one week if symptoms persist or worsen. 2. URI, acute - ICD9: 465.9, ICD10: J06.9 - Discussed viral etiology and rationale for treatment. - Symptomatic treatment with prn analgesia - Supportive care with fluids and rest Diagnosis and treatment plan were discussed and questions were answered to the patient's satisfaction. Pt acknowledged understanding of concepts and follow up plan. Specific signs and symptoms that would indicate the need for higher level of care were discussed in detail warranting prompt ER evaluation. Almaz Ha APRN.CNP documented in this encounter [facility] 05-12-2022 Instructions Almaz Ha APRN.CNP - 05/12/2022 2:41 PM EST Zyrtec 10 mg By mouth daily at bedtime Flonase or Nasonex 2 sprays in each nostril once a day Amoxicillin as ordered Tylenol (generic acetaminophen) 500 mg-2 tabs every 8 hrs. as needed for fever and aches Ibuprofen 600 mg (3-200mg tablets) every 6 hours Warm compresses * Seek medical care immediately, call 911, go to ER if you have chest pain, difficulty breathing, shortness of breath, inability to swallow. documented in this encounter [facility] 04-27-2022 History of Presen t illness Narrative CC: Patient presents with: Urinary Frequency: burning with urination x 2 days She recently had a new sexual partner. HPI Natan Osman is a 22 year old female who presents with complaint of possible UTI. These symptoms have been present for 2 days. Associated symptoms: burning, frequency, and abnormal vaginal discharge Denies: backpain, pressure, fever, chills, sweats, abdominal pain, and flank pain Treatments: nothing The ROS was otherwise negative. PMH, Medications, labs, allergies, and recent past visits with PCP were reviewed and updated as able. PHYSICAL EXAM: BP 122/72 Pulse 92 Temp 36.8 C (98.3 F) Resp 16 Wt 73 kg (161 lb) LMP 01/04/2022 SpO2 97% BMI 28.07 kg/m General: Well appearing and alert PAST MEDICAL HISTORY Diagnosis Date Acute bronchiolitis due to respiratory syncytial virus (RSV) resolved Asthma no asthma attacks in several years Attention deficit hyperactivity disorder (ADHD), combined type 01/25/2015 Chlamydia trachomatis infection in in first trimester 05/21/2021 11/14/21- ALLEN negative. Viky Stubbs APRN.CNM Chlamydia positive again 10/19/21. SW Depression 10/11/2014 Hospitalized 10/03/2014. Dysmenorrhea 05/31/2013 Family history of hypertrophic cardiomyopathy 11/01/2015 Fatigue 05/31/2013 Menarche 11/2011 Age 11 Nexplanon insertion 02/2018 Left arm PTSD (post-traumatic stress disorder) Short stature resolved Unspecified asthma(493.90) PAST SURGICAL HISTORY Procedure Laterality Date NEXPLANON INSERTION 06/22/2015 removed 04/2017 NEXPLANON INSERTION 02/2018 removed 08/01/2020 NEXPLANON INSERTION Left 01/01/2022 TONSILLECTOMY & ADENOIDECTOMY <AGE 11 ALLERGIES Seasonal Allergies MEDICATIONS etonogestrel (NEXPLANON) subdermal implant 68 mg^1 Each by SUBDERMAL route as directed.^Disp: 1 Each^Rfl: 0 cyclobenzaprine (FLEXERIL) 5 mg tablet^Take 1 tablet by mouth daily at bedtime.^Disp: 30 tablet^Rfl: 1 (Patient not taking: Reported on 12/17/2021 ) [id number] ( PLUS DHA) 18 mg iron-800 mcg-290 mg cppt^Take 1 tablet by mouth once daily.^Disp: 30 Each^Rfl: 12 (Patient not taking: Reported on 12/03/2021 ) etonogestrel (NEXPLANON) subdermal implant 68 mg^68 mg by SUBDERMAL route continuous.^Disp: ^Rfl: etonogestrel subdermal implant 68 mg (NEXPLANON)^1 Each by SUBDERMAL route one time only for 1 dose.^Disp: 1 Each^Rfl: 0 FAMILY HISTORY Problem Relation Age of Onset Hypertension Mother Cardiomyopathy Father Crohn's Disease Brother Hypertension Maternal Grandmother Psychiatry Maternal Grandfather anxiety Prostate Cancer Maternal Grandfather Heart Paternal Grandfather of heart attack Social History Tobacco Use Smoking status: Former Packs/day: 0.25 Years: 7.00 Pack years: 1.75 Types: Cigarettes Smokeless tobacco: Never Tobacco comments: 7 cigarettes a day Vaping Use Vaping Use: Former Substances: Nicotine, THC Devices: Disposable Substance Use Topics Alcohol use: No Drug use: Yes Types: Marijuana Comment: for depression, anxiety and PTSD ASSESSMENT/PLAN: 1. Urinary frequency - ICD9: 788.41, ICD10: R35.0 Self swab - UA DIP, URINE (POC) - URINE CULTURE - BACTERIAL VAGINOSIS AMPLIFICATION - TRACEY / TRICHOMONAS AMPLIFICATION - GC/CHLAMYDIA DNA DET No treatment at this time will treat if anything comes back positive Prescription instructions reviewed with patient as applicable. Potential red flag symptoms discussed with the patient. Reviewed appropriate action plan to take if red flag symptoms occur. Patient agreeable to treatment plan. Zoila Shabazz APRN.BATOOL documented in this encounter [facility] 02-06-2022 Miscellaneous Notes Patient was seen at urgent care yesterday. Was put on Doxycycline yesterday for axillary infection. Tested negative for BV, trich and yeast yesterday. I called patent and she states discharge is whitish and smells like ammonia. No itching. Please advise documented in this encounter [facility] 02-05-2022 Instructions Meri Mehta APRN.REFERRAL MANAGER - 02/05/2022 5:04 PM EDT VAGINAL DISCHARGE What is vaginal discharge? Vaginal discharge is a clear or whitish fluid that comes out of the vagina. The uterus, cervix, or vagina can produce the fluid. Is vaginal discharge normal? Yes. Most women have vaginal discharge but not all discharge is normal. The amount of discharge is different for each woman. Some women have a little discharge now and then. Others have discharge every day. Your normal discharge might change many times throughout your life. Should I douche to get rid of vaginal discharge? No. Douches should not be used to get rid of vaginal discharge. Douching can upset the natural balance of organisms in your body. Douching can also lead to infection. Normal vaginal discharge should not be thought of as unclean or unhealthy. It is a normal way for your body to discard fluid and old cells. If my discharge changes, do I have an infection? Maybe. Your discharge might change color, become heavier, or smell different. You might notice irritation around the opening of the vagina. You might also notice changes before or after your period. Changes in vaginal discharge might or might not be a sign that you have a vaginal infection. When is vaginal discharge a sign of an infection? Your vaginal discharge might be the sign of an infection if it: Causes itching Causes swelling Has a bad odor Is green, yellow, or richard in color Looks foamy or like cottage cheese What infections cause vaginal discharge to change? There are a number of infections that cause vaginal discharge to change or become unpleasant. Many of these infections can be caused by having sex with someone who has the infection. This graph describes a number of common vaginal infections: Name of infection Is caused by having sex with an infected person? What does discharge look like? How is the infection treated? Yeast Infection No Thick, white, like cottage cheese Vaginal creams or pills Trichomoniasis ( Trick ) Yes Green, yellow, or richard in color; frothy Pills ordered by your doctor Bacterial vaginosis (Gardnerella or BV) Probably not White discharge that smells fishy Pills or vaginal cream ordered by your doctor Gonorrhea (Clap) Yes Cloudy or yellow, but often no symptoms Pills or shots ordered by your doctor Chlamydia (Tvy-hmn-yz-ah) Yes Often no symptoms Pills ordered by your doctor Can a woman have more than one infection at once? Yes. A woman may have two or three types of infection at the same time. Why do women get vaginal infections? Health care providers do not yet know all of the reasons why women get vaginal infections. They do know that some types are spread by having sex with an infected person. You might have a higher risk of getting infections if you: Have sex without protection (trichomoniasis, gonorrhea, chlamydia) Have diabetes (yeast) Have many sex partners (trichomoniasis, gonorrhea, chlamydia) Take control pills (yeast) Are taking antibiotic medicine (yeast) Have an HIV infection (yeast) When should I see my health care provider? You should see your health care provider if: Your vaginal discharge changes color, becomes heavier, or smells different. You notice itching, burning, swelling, or soreness around the vagina. Copyright 8132-2803 [facility]. All rights reserved. This information is provided by the [facility] and is not intended to replace the medical advice of your doctor or health care provider. Please consult your health care provider for advice about a specific medical condition. For additional written health information, please contact the Health Information Center at the [facility] or toll-free extension [phone]. This document was last reviewed on: 2004 index#5556 ABSCESS (BOIL): You have a skin abscess, or boil. Boils usually develop when Staph bacteria get into the small glands or hair follicles in the skin and form a pus pocket. After an abscess is properly drained, it will most often heal without any problems. You should not squeeze an abscess or boil to drain it; this can cause the infection to spread to other areas under the skin. Boils are contagious, so you should dispose of soiled bandages carefully and not share your towel or wash cloth with others. A boil is lanced to start the draining. Sometimes a loose gauze pack is put in the abscess pocket to promote drainage; this should be removed in 1-3 days. Soak the area in warm water for 20-30 minutes 3-4 times daily to help the healing. Oral antibiotics may be needed if the infection is severe or if it seems to be spreading. Please call your doctor if you have increased pain or swelling, chills or fever, red streaks going up the arm or leg, or continued pus drainage after 3-4 days. documented in this encounter [facility] 02-05-2022 History of Presen t illness Narrative This note was created using [employer]. Subjective Natan Osman is a 21 year old female. 21 year old female with PMH ADHD and asthma presents for complaints of abscess in right arm pit. Acute onset of symptoms was 2 weeks ago Right armpit. Tender, bump Denies red streaking. Denies fever or chills. States that about 4 days ago she squeezed the area and drainage erupted Presents today as still seems not resolved Vaginal Discharge 2 weeks ago + thin and watery smells like ammonia 12 weeks LMP-01/07/22 Denies sx. Denies concerns for sexually transmitted disease. The history is provided by the patient. No language path was used. Abscess This is a new problem. The current episode started 1 to 4 weeks ago. The problem occurs constantly. The problem has been waxing and waning. Pertinent negatives include no abdominal pain, anorexia, arthralgias, change in bowel habit, chest pain, chills, congestion, coughing, diaphoresis, fatigue, fever, headaches, joint swelling, myalgias, nausea, neck pain, numbness, rash, sore throat, swollen glands, urinary symptoms, vertigo, visual change, vomiting or weakness. Nothing aggravates the symptoms. Treatments tried: squeezed herself. The treatment provided no relief. PAST MEDICAL HISTORY Diagnosis Date Acute bronchiolitis due to respiratory syncytial virus (RSV) resolved Asthma no asthma attacks in several years Attention deficit hyperactivity disorder (ADHD), combined type 01/25/2015 Chlamydia trachomatis infection in in first trimester 05/21/2021 11/14/21- ALLEN negative. Viky Stubbs APRN.CNM Chlamydia positive again 10/19/21. SW Depression 10/11/2014 Hospitalized 10/03/2014. Dysmenorrhea 05/31/2013 Family history of hypertrophic cardiomyopathy 11/01/2015 Fatigue 05/31/2013 Menarche 11/2011 Age 11 Nexplanon insertion 02/2018 Left arm PTSD (post-traumatic stress disorder) Short stature resolved Unspecified asthma(493.90) PAST SURGICAL HISTORY Procedure Laterality Date NEXPLANON INSERTION 06/22/2015 removed 04/2017 NEXPLANON INSERTION 02/2018 removed 08/01/2020 NEXPLANON INSERTION Left 01/01/2022 TONSILLECTOMY & ADENOIDECTOMY <AGE 11 ALLERGIES Seasonal Allergies MEDICATIONS etonogestrel (NEXPLANON) subdermal implant 68 mg^1 Each by SUBDERMAL route as directed.^Disp: 1 Each^Rfl: 0 doxycycline monohydrate 100 mg tablet^Take 1 tablet by mouth twice daily for 5 days.^Disp: 10 tablet^Rfl: 0 cyclobenzaprine (FLEXERIL) 5 mg tablet^Take 1 tablet by mouth daily at bedtime.^Disp: 30 tablet^Rfl: 1 (Patient not taking: Reported on 12/17/2021 ) [id number] ( PLUS DHA) 18 mg iron-800 mcg-290 mg cppt^Take 1 tablet by mouth once daily.^Disp: 30 Each^Rfl: 12 (Patient not taking: Reported on 12/03/2021 ) etonogestrel (NEXPLANON) subdermal implant 68 mg^68 mg by SUBDERMAL route continuous.^Disp: ^Rfl: etonogestrel subdermal implant 68 mg (NEXPLANON)^1 Each by SUBDERMAL route one time only for 1 dose.^Disp: 1 Each^Rfl: 0 FAMILY HISTORY Problem Relation Age of Onset Hypertension Mother Cardiomyopathy Father Crohn's Disease Brother Hypertension Maternal Grandmother Psychiatry Maternal Grandfather anxiety Prostate Cancer Maternal Grandfather Heart Paternal Grandfather of heart attack Social History Tobacco Use Smoking status: Former Packs/day: 0.25 Years: 7.00 Pack years: 1.75 Types: Cigarettes Smokeless tobacco: Never Tobacco comments: 7 cigarettes a day Vaping Use Vaping Use: Former Substances: Nicotine, THC Devices: Disposable Substance Use Topics Alcohol use: No Drug use: Yes Types: Marijuana Comment: for depression, anxiety and PTSD Review of Systems Constitutional: Negative for chills, diaphoresis, fatigue and fever. HENT: Negative for congestion, sinus pressure, sinus pain and sore throat. Eyes: Negative for pain, discharge, redness and itching. Respiratory: Negative for apnea, cough, choking and chest tightness. Cardiovascular: Negative for chest pain, palpitations and leg swelling. Gastrointestinal: Negative for abdominal pain, anorexia, change in bowel habit, constipation, diarrhea, nausea and vomiting. Genitourinary: Positive for vaginal discharge. Musculoskeletal: Negative for arthralgias, joint swelling, myalgias and neck pain. Skin: Negative for color change, pallor and rash. +abscess Allergic/Immunologic: Negative for environmental allergies, food allergies and immunocompromised state. Neurological: Negative for dizziness, vertigo, facial asymmetry, weakness, numbness and headaches. Hematological: Negative for adenopathy. Does not bruise/bleed easily. Psychiatric/Behavioral: Negative for agitation and behavioral problems. Objective BP 126/72 Pulse 108 Temp 36.7 C (98 F) Resp 16 Wt 78 kg (172 lb) LMP (LMP Unknown) SpO2 98% BMI 29.99 kg/m Physical Exam Vitals and nursing note reviewed. Constitutional: General: She is not in acute distress. Appearance: Normal appearance. She is normal weight. She is not ill-appearing, toxic-appearing or diaphoretic. HENT: Head: Normocephalic and atraumatic. Right Ear: Ear canal and external ear normal. Left Ear: Ear canal and external ear normal. Nose: Nose normal. No congestion or rhinorrhea. Mouth/Throat: Mouth: Mucous membranes are moist. Pharynx: No oropharyngeal exudate or posterior oropharyngeal erythema. Eyes: General: Right eye: No discharge. Left eye: No discharge. Extraocular Movements: Extraocular movements intact. Conjunctiva/sclera: Conjunctivae normal. Pupils: Pupils are equal, round, and reactive to light. Cardiovascular: Rate and Rhythm: Normal rate and regular rhythm. Pulses: Normal pulses. Heart sounds: Normal heart sounds. No murmur heard. No friction rub. Pulmonary: Effort: Pulmonary effort is normal. No respiratory distress. Breath sounds: Normal breath sounds. No stridor. No wheezing, rhonchi or rales. Chest: Chest wall: No tenderness. Abdominal: General: Abdomen is flat. There is no distension. Palpations: Abdomen is soft. There is no mass. Tenderness: There is no abdominal tenderness. There is no right CVA tenderness, left CVA tenderness, guarding or rebound. Hernia: No hernia is present. Genitourinary: Comments: Declines pelvic exam, requests self swab Musculoskeletal: General: No swelling, tenderness, deformity or signs of injury. Normal range of motion. Cervical back: Normal range of motion and neck supple. No rigidity. Right lower leg: No edema. Left lower leg: No edema. Lymphadenopathy: Cervical: No cervical adenopathy. Skin: General: Skin is warm and dry. Coloration: Skin is not jaundiced or pale. Findings: No bruising, erythema, lesion or rash. Comments: Right mid axilla with non fluctuant, non indurated with scant pustule head known. No crepitus. NO red streaking. Neurological: General: No focal deficit present. Mental Status: She is alert and oriented to person, place, and time. Cranial Nerves: No cranial nerve deficit. Sensory: No sensory deficit. Motor: No weakness. Coordination: Coordination normal. Gait: Gait normal. Psychiatric: Mood and Affect: Mood normal. Behavior: Behavior normal. Thought Content: Thought content normal. Judgment: Judgment normal. Assessment and Plan ASSESSMENT/PLAN: 1. Vaginal discharge - ICD9: 623.5, ICD10: N89.8 (primary diagnosis) X 2 weeks Thin and odorous. - TRACEY / TRICHOMONAS AMPLIFICATION - BACTERIAL VAGINOSIS AMPLIFICATION 2. Abscess of right axilla - ICD9: 682.3, ICD10: L02.411 - Begin treatment with Doxycyline - No lymphangetic streaking, this was defined for patient to watch for and to seek medical care immediately if appears - Follow up for recheck in two days - Discussed area wasn't clinically indicated for I & D, start ATB And if need be return 02/07/22 Meri Mehta APRN.BATOOL documented in this encounter [facility] 01-01-2022 History of Presen t illness Narrative Natan is a 21 year old patient who presents for Nexplanon insertion. Pt is . VITALS: BP 102/64 Wt 164 lb (74.4kg) test: negative Nexplanon lot #: [id number] Exp date: 12/08/2023 UNIVERSAL PROTOCOL / SAFETY CHECKLIST Procedure to be Performed: Nexplanon insertion Sign In: A Moment of CARE was completed. Personnel directly involved with the procedure wore the appropriate PPE (Personal Protective Equipment). Patient/Surrogate Stated/Verified: PATIENT VERIFIED(optional for EMERGENT procedures): Patient name, Date of , Relevant allergies and The intended procedure Time Out Communication: Intended patient and procedure match the source documents. Consent documented and matches the intended procedure. Relevant labs, photos, and/or imaging studies have been reviewed. Medications required for procedure verified. Implant(s) inserted: Correct implant(s) confirmed including size and side. and Expiration date(s) reviewed. Sign Out: SIGN OUT (optional for EMERGENT procedures): All instruments, equipment, possible retained foreign bodies accounted for. Post-procedure follow-up management communicated and Plan of Care Visit completed when applicable. Janelle Fang APRN.BATOOL TECHNIQUE: Patient placed in supine position with left) bent at the elbow and placed over the head. Skin cleansed with betadine. 2mL of 1% lidocaine with 1:100,000 epi injected subQ along insertion site. Nexplanon jorje inserted under sterile technique. After insertion by the provider, the jorje was palpable under the skin by both patient and provider. Steristrips and sterile pressure dressing applied. A&P: Nexplanon inserted without complications. Patient user card was filled out and given to the patient. The patient was instructed to remove the dressing after 24 hours. Advised to use backup contraception for 7 days. Janelle Fang APRN.BATOOL documented in this encounter [facility] 01-01-2022 Ed Ortiz LPN - 01/01/2022 3:22 PM EDT NEXPLANON PATIENT EDUCATION You may remove dressing in 24 hours. Expect some bruising around insertion site. You may take over the counter pain medication (i.e. Tylenol, motrin, advil, etc) if you have discomfort. Call your provider with excessive bruising or pain. Continue to use condoms for STD prevention. You should use backup contraception for 7 days to prevent . documented in this encounter [facility] 12-31-2021 History of Presen t illness Narrative Audit Intern offered: Patient declines. VISIT Natan Osman is a 21 year old year old here for visit. Delivery Summary: ROS/ Recovery: Feeding: Bottle feeding problems: None Menses since delivery: n/a Menstrual pattern prior to : Regular periods [place] since delivery: Not resumed Depression: denies symptoms of depression. OB Depression and Anxiety Screening- This Encounter (since 12/30/2021) None Emotional support: Yes Bowel symptoms: Negative for abdominal discomfort, blood in stools or black stools and change in bowel habits Abdomen: N/A Bladder symptoms: No dysuria, gross hematuria, urinary frequency, urinary urgency, or incontinence Other issues: None Last Pap: 2020 normal HPV: negative PAST MEDICAL HISTORY Diagnosis Date Acute bronchiolitis due to respiratory syncytial virus (RSV) resolved Asthma no asthma attacks in several years Attention deficit hyperactivity disorder (ADHD), combined type 01/25/2015 Chlamydia trachomatis infection in in first trimester 05/21/2021 11/14/21- ALLEN negative. Viky Stubbs APRN.CNM Chlamydia positive again 10/19/21. SW Depression 10/11/2014 Hospitalized 10/03/2014. Dysmenorrhea 05/31/2013 Family history of hypertrophic cardiomyopathy 11/01/2015 Fatigue 05/31/2013 Menarche 11/2011 Age 11 Nexplanon insertion 02/2018 Left arm PTSD (post-traumatic stress disorder) Short stature resolved Unspecified asthma(493.90) PAST SURGICAL HISTORY Procedure Laterality Date NEXPLANON INSERTION 06/22/2015 removed 04/2017 NEXPLANON INSERTION 02/2018 removed 08/01/2020 TONSILLECTOMY & ADENOIDECTOMY <AGE 11 FAMILY HISTORY Problem Relation Age of Onset Hypertension Mother Cardiomyopathy Father Crohn's Disease Brother Hypertension Maternal Grandmother Psychiatry Maternal Grandfather anxiety Prostate Cancer Maternal Grandfather Heart Paternal Grandfather of heart attack Social History Tobacco Use Smoking status: Former Smoker Packs/day: 0.25 Years: 7.00 Pack years: 1.75 Types: Cigarettes Smokeless tobacco: Never Used Tobacco comment: 7 cigarettes a day Vaping Use Vaping Use: Former Substances: Nicotine, THC Devices: Disposable Substance Use Topics Alcohol use: No Drug use: Yes Types: Marijuana Comment: for depression, anxiety and PTSD PHYSICAL EXAMINATION: Wt 164 lb (74.4kg) GENERAL: pleasant, female in no apparent distress HEENT: Normocephalic, atraumatic, mucus membranes moist and no lesions NECK: Supple, full range of motion, no adenopathy and thyroid normal DERMATOLOGY: Normal, without lesions, non-icteric and non-hirsute BREAST: soft, non-tender, symmetric, no dominant mass, normal nipple-areolar complex, no lymphadenopathy and no nipple discharge CHEST: Normal inspiratory effort ABDOMEN: soft, non-tender and no masses. INCISION: No incisional redness, swelling, or drainage PELVIC: external genitalia normal, normal Bartholin's glands, urethra, Willey's glands, no vulvar lesions, no cervical lesions, good vaginal support, physiologic discharge present, normal appearing perineal body and perianal region BIMANUAL: uterus normal size, shape and consistency, no adnexal masses and non-tender NEURO: alert and oriented x3,exam grossly non-focal EXTREMITIES: normal ASSESSMENT AND PLAN: 21 year old status post with normal course. Contraception plan: nexplanon Follow up: RTC for annual exams and PRN Karli Jacinto MD documented in this encounter [facility] 12-17-2021 History of Presen t illness Narrative VISIT/ Problem Natan Osman is a 21 year old year old here for an add on problem/ visit. She is 4 weeks post . She was in the shower this morning and saw a purple string hanging from vagina. She pulled on string and it came out. String was vaginal suture. She denies any bleeding. Having a small amount of burning to vaginal area. Here today to make sure vaginal wound is not open. Delivery Summary: 11/18/21- 1st degree vaginal laceration ROS/ Recovery: Feeding: Bottle feeding problems: None Menses since delivery: None/ spotting PAST MEDICAL HISTORY Diagnosis Date Acute bronchiolitis due to respiratory syncytial virus (RSV) resolved Asthma no asthma attacks in several years Attention deficit hyperactivity disorder (ADHD), combined type 01/25/2015 Chlamydia trachomatis infection in in first trimester 05/21/2021 11/14/21- ALLEN negative. Viky Stubbs APRN.CNM Chlamydia positive again 10/19/21. SW Depression 10/11/2014 Hospitalized 10/03/2014. Dysmenorrhea 05/31/2013 Family history of hypertrophic cardiomyopathy 11/01/2015 Fatigue 05/31/2013 Menarche 11/2011 Age 11 Nexplanon insertion 02/2018 Left arm PTSD (post-traumatic stress disorder) Short stature resolved Unspecified asthma(493.90) PAST SURGICAL HISTORY Procedure Laterality Date NEXPLANON INSERTION 06/22/2015 removed 04/2017 NEXPLANON INSERTION 02/2018 removed 08/01/2020 TONSILLECTOMY & ADENOIDECTOMY <AGE 12 FAMILY HISTORY Problem Relation Age of Onset Hypertension Mother Cardiomyopathy Father Crohn's Disease Brother Hypertension Maternal Grandmother Psychiatry Maternal Grandfather anxiety Prostate Cancer Maternal Grandfather Heart Paternal Grandfather of heart attack Social History Tobacco Use Smoking status: Former Smoker Packs/day: 0.25 Years: 7.00 Pack years: 1.75 Types: Cigarettes Smokeless tobacco: Never Used Tobacco comment: 7 cigarettes a day Vaping Use Vaping Use: current everyday user Substances: Nicotine, THC Devices: Disposable Substance Use Topics Alcohol use: No Drug use: Yes Types: Marijuana Comment: for depression, anxiety and PTSD PHYSICAL EXAMINATION: BP 112/72 Wt 161 lb (73.0kg) GENERAL: pleasant, female in no apparent distress HEENT: Normocephalic and atraumatic NECK: Supple and full range of motion DERMATOLOGY: Normal and without lesions BREAST: deferred CHEST: Normal inspiratory effort ABDOMEN: Deferred. INCISION: N/A PELVIC: external genitalia normal, normal Bartholin's glands, urethra, Willey's glands, no cervical lesions, good vaginal support, physiologic discharge present, normal appearing perineal body and perianal region, vaginal laceration well approximated, no erythema and tissue healing appropriately ASSESSMENT AND PLAN: 21 year old status post with normal course. Contraception plan: Nexplanon Follow up: already scheduled 6 week visit Viky Stubbs APRN.CNM documented in this encounter [facility] 12-17-2021 Miscellaneous Notes Patient called and appointment scheduled. Tomasa Michaels RN Yes! I can see her today as needed. Viky Stubbs APRN.CNM Patient states she was in the shower yesterday and saw something hanging from her vagina that was hard. Patient states she tugged hard and pulled what she thinks is her stitches out. Patient states she is not having bleeding but is having some vaginal pain. Patient delivered on 11/18. She is asking for an appointment in the office today, but can only come in after 2 pm today. Can patient be worked in? Viky, can patient be put in a 15 minute spot? Tomasa Michaels RN documented in this encounter [facility] 11-19-2021 History of Presen t illness Narrative Patient delivered via by Dr. Jacinto on 11/18/21 at [facility]. See OB history. Rajwinder Marroquin RN documented in this encounter [facility] 11-16-2021 Miscellaneous Notes RAUL-S: Natan Osman is a 21 year old female who presents at 38w5d with KWAME: 11/25/2021, by Ultrasound for a routine visit. Good FM. Denies headache, visual changes, chest pain, shortness of breath, vaginal bleeding, leakage of fluid, or dysuria. Feeling well, no complaints. O: See flow sheet Gen: No apparent distress Abd: Gravid, nontender S=D, 49 lb TWG, cephalic ASSESSMENT/PLAN: 1. 38 weeks gestation of P: 1) Labor instructions reviewed and when to call 2) RTO in 1 week 3) GC/CT negative 4) Growth US at 33w5d 29th percentile Meri Chapman APRN.CNM documented in this encounter [facility] 11-16-2021 Instructions Oralia Peraza MA - 11/16/2021 3:02 PM EDT SEQUENTIAL SCREENINGS The [facility] offers sequential screenings for women who are interested in screenings for chromosomal abnormalities and certain defects during a . The sequential screen combines ultrasound and blood tests to determine the risk of chromosomal abnormalities, including Down's Syndrome (Trisomy 21) and Trisomy 18, as well as open neural tube defects including spina bifida. Ultrasound examination is performed between 11 weeks and 13 weeks gestational age. Blood tests are drawn after the ultrasound and again later in the between 15 and 21 weeks gestational age. Please let your physician know if you are interested in this testing. It will require an appointment with our windshield repair technician. This is not an ultrasound performed by a physician in our office during a routine visit. SIGNS AND SYMPTOMS OF LABOR 1. Contractions every 10 minutes or more often 2. Clear, pink, or brownish fluid (water) leaking from vagina 3. Feeling that baby is pushing down, pressure 4. Low, dull backache 5. Cramps that feel like a period 6. Cramps with or without diarrhea If you notice any of the above symptoms, contact our office at [phone] and ask to speak with a nurse. After hours, you can call doctors registry at [phone] OR call [facility] at [phone] and ask to have the doctor suction dredge dumping supervisor paged. If you consider this an emergency, dial 9-9 or go to your nearest emergency department. NEED HELP? Are you dealing with a violent or abusive relationship? Are you a victim of rape or sexual assult? Call [facility] ([place]) 24 hour Crisis Hotline: 141.497.8814 or 975-791-2546. MANUAL Your Guide to a Healthy manual is now on-line. Visit [email or web address] to download your free copy documented in this encounter [facility] 11-09-2021 Miscellaneous Notes NOES: Natan Osman is a 21 year old female who presents at 37w5d with KWAME:11/25/2021, by Ultrasound for a routine visit. Good FM. Denies headache, visual changes, chest pain, shortness of breath, vaginal bleeding, leakage of fluid, or dysuria. Feeling well, no complaints. O: See flow sheet Gen: No apparent distress Abd: Gravid, nontender S=D, 46 lb TWG, cephalic ASSESSMENT/PLAN: 1. 37 weeks gestation of 2. Marijuana use P: 1) Labor instructions reviewed and when to call 2) RTO in one week 3) Positive for chlamydia on 10/19, ALLEN next visit. No intercourse since treatment and no longer with partner. Advised to avoid intercourse. 4) Reviewed recommendation for cessation of marijuana use, patient does not plan to stop using at this time. Meri Chapman APRN.CNM documented in this encounter [facility] 11-09-2021 Instructions Oralia Peraza MA - 11/09/2021 2:20 PM EDT SEQUENTIAL SCREENINGS The [facility] offers sequential screenings for women who are interested in screenings for chromosomal abnormalities and certain defects during a . The sequential screen combines ultrasound and blood tests to determine the risk of chromosomal abnormalities, including Down's Syndrome (Trisomy 21) and Trisomy 18, as well as open neural tube defects including spina bifida. Ultrasound examination is performed between 11 weeks and 13 weeks gestational age. Blood tests are drawn after the ultrasound and again later in the between 15 and 21 weeks gestational age. Please let your physician know if you are interested in this testing. It will require an appointment with our windshield repair technician. This is not an ultrasound performed by a physician in our office during a routine visit. SIGNS AND SYMPTOMS OF LABOR 1. Contractions every 10 minutes or more often 2. Clear, pink, or brownish fluid (water) leaking from vagina 3. Feeling that baby is pushing down, pressure 4. Low, dull backache 5. Cramps that feel like a period 6. Cramps with or without diarrhea If you notice any of the above symptoms, contact our office at [phone] and ask to speak with a nurse. After hours, you can call doctors registry at [phone] OR call [facility] at [phone] and ask to have the doctor suction dredge dumping supervisor paged. If you consider this an emergency, dial [phone] or go to your nearest emergency department. NEED HELP? Are you dealing with a violent or abusive relationship? Are you a victim of rape or sexual assult? Call [facility] ([place]) 24 hour Crisis Hotline: 415.875.7854 or 574-695-7170. MANUAL Your Guide to a Healthy manual is now on-line. Visit [email or web address] to download your free copy documented in this encounter [facility] 10-30-2021 Miscellaneous Notes KJ - Patient seen urgently for pelvic pressure. VB No. LOF No. CTXS No. Movement: present. Other c/o: No. Medication list reviewed. Physical Exam See Flow Sheet Gen: no accute distress, well appearing Abd: soft, nontender, gravid A/P 36w2d Estimated Date of Delivery: 11/25/21 Labs: GBS done Needs chlamydia ALLEN in 2 weeks PTL precautions reviewed, Kick counts reviewed. Reassured on musculoskeletal pains in Zeina Shabazz MD documented in this encounter [facility] 10-30-2021 Ed Francis Ma - 10/30/2021 3:06 PM EDT SEQUENTIAL SCREENINGS The [facility] offers sequential screenings for women who are interested in screenings for chromosomal abnormalities and certain defects during a . The sequential screen combines ultrasound and blood tests to determine the risk of chromosomal abnormalities, including Down's Syndrome (Trisomy 21) and Trisomy 18, as well as open neural tube defects including spina bifida. Ultrasound examination is performed between 11 weeks and 13 weeks gestational age. Blood tests are drawn after the ultrasound and again later in the between 15 and 21 weeks gestational age. Please let your physician know if you are interested in this testing. It will require an appointment with our windshield repair technician. This is not an ultrasound performed by a physician in our office during a routine visit. SIGNS AND SYMPTOMS OF LABOR 1. Contractions every 10 minutes or more often 2. Clear, pink, or brownish fluid (water) leaking from vagina 3. Feeling that baby is pushing down, pressure 4. Low, dull backache 5. Cramps that feel like a period 6. Cramps with or without diarrhea If you notice any of the above symptoms, contact our office at [phone] and ask to speak with a nurse. After hours, you can call doctors registry at [phone] OR call [facility] at [phone] and ask to have the doctor suction dredge dumping supervisor paged. If you consider this an emergency, dial [phone] or go to your nearest emergency department. NEED HELP? Are you dealing with a violent or abusive relationship? Are you a victim of rape or sexual assult? Call [facility] ([place]) 24 hour Crisis Hotline: 737.403.6224 or 921-314-9683. MANUAL Your Guide to a Healthy manual is now on-line. Visit [email or web address] to download your free copy documented in this encounter [facility] 10-25-2021 Miscellaneous Notes KJ - VB No. LOF No. CTXS No. Movement: present. Other c/o: No. Medication list reviewed. Physical Exam See Flow Sheet Gen: no accute distress, well appearing Abd: soft, nontender, gravid A/P 35w4d Estimated Date of Delivery: 11/25/21 Chlamydia - s/p treatment (partner too). Needs ALLEN in 2-3 weeks. Advised on risks or re-infection & abstinence recommended. PTL precautions reviewed, Kick counts reviewed. Zeina Shabazz MD documented in this encounter [facility] 10-25-2021 Instructions Margaret Francis Ma - 10/25/2021 2:17 PM EDT SEQUENTIAL SCREENINGS The [facility] offers sequential screenings for women who are interested in screenings for chromosomal abnormalities and certain defects during a . The sequential screen combines ultrasound and blood tests to determine the risk of chromosomal abnormalities, including Down's Syndrome (Trisomy 21) and Trisomy 18, as well as open neural tube defects including spina bifida. Ultrasound examination is performed between 11 weeks and 13 weeks gestational age. Blood tests are drawn after the ultrasound and again later in the between 15 and 21 weeks gestational age. Please let your physician know if you are interested in this testing. It will require an appointment with our windshield repair technician. This is not an ultrasound performed by a physician in our office during a routine visit. SIGNS AND SYMPTOMS OF LABOR 1. Contractions every 10 minutes or more often 2. Clear, pink, or brownish fluid (water) leaking from vagina 3. Feeling that baby is pushing down, pressure 4. Low, dull backache 5. Cramps that feel like a period 6. Cramps with or without diarrhea If you notice any of the above symptoms, contact our office at [phone] and ask to speak with a nurse. After hours, you can call doctors registry at [phone] OR call [facility] at [phone] and ask to have the doctor suction dredge dumping supervisor paged. If you consider this an emergency, dial 7-0-0 or go to your nearest emergency department. NEED HELP? Are you dealing with a violent or abusive relationship? Are you a victim of rape or sexual assult? Call [facility] ([place]) 24 hour Crisis Hotline: 107.249.8161 or 279-254-4310. MANUAL Your Guide to a Healthy manual is now on-line. Visit [email or web address] to download your free copy documented in this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
[2023-06-27 19:04] LABS: Absolute Lymphocyte Count 3.46 X10^3/uL (0.83-4.51); Basophil# 0.08 X10^3/uL; Basophil% 0.9 % (0-1); Eosinophil# 0.78 X10^3/uL; Eosinophils% 8.8 % (0-5); Hematocrit 38.5 % (37-47); Hemoglobin 12.7 g/dL (12.0-15.0); Lymphocyte # 3.46 X10^3/ul (0.83-4.51); Lymphocyte % 38.9 % (19-41); Mean Corpuscular Hgb 29.3 pg (27.0-32.0); Mean Corpuscular Volume 88.9 fL (81-99); Mean Platelet Vol. 11.6 fl (6.2-12.0); Monocyte% 6.7 % (0-10); NRBC Flagged by Analyzer 0 % (0-5); Neutrophil # 3.95 X10^3/uL (2.7-7.7); Neutrophil % 44.4 % (47-70); Platelet Count 188 K/mm3 (150-450); RBC Distribution Width CV 12.2 % (11.6-14.6); RBC Distribution Width SD 39.9 fl (35.1-43.9); Red Blood Count 4.33 M/mm3 (4.2-5.4); White Blood Count 8.9 K/mm3 (4.4-11.0)
[2023-06-27 19:07] LABS: Color, Urine Yellow (Yellow); Glucose, Dipstick Normal (Normal); Ketone-Dipstick 5 mg/dl (Negative); Leukocyte Esterase-Dipstick 25 /ul (Negative); Nitrite-Dipstick Negative (Negative); Occult Blood-Urine 10 /ul (Negative); Protein-Dipstick 30 mg/dl (Negative); Urine Clarity Clear (Clear); Urine Urobilinogen 4 mg/dl (Normal)
[2023-06-27 19:11] LABS: Urine Bilirubin Dipstick 1 mg/dL (Negative)
[2023-06-27 19:13] LABS: Squamous Epithelial Cells - UA 5-10 SEEN /hpf (5-10); White Blood Cells 0-5 SEEN /hpf (0-5)
[2023-06-27 19:16] LABS: Internal QC Validated? YES +Cl - CLEAR BKGD; Pregnancy, Serum, hCG Quali. NEGATIVE Negative; Record Kit Lot#, Serum Preg. 718086
[2023-06-27 19:25] LABS: ALB/GLOB Ratio 1.2 RATIO (0.9-2.4); AST(SGOT) 8 U/L (15-37); Alanine Aminotransfer ALT/SGPT 15 U/L (13-56); Albumin, Serum 3.6 g/dL (3.2-5.0); Alkaline Phosphatase 62 U/L (45-117); Anion Gap 3 (5-15); BUN 9 mg/dL (7-18); BUN/Creat Ratio 9.2 RATIO (10-20); Calcium,Total 8.8 mg/dL (8.5-10.1); Chloride 113 mmol/L (98-107); Creatinine, Serum 0.98 mg/dL (0.55-1.02); EST Glomerular Filtration Rate 74 mL/min (>60); Est Glom Filt Rate - Afr Amer 89 mL/min (>60); Estimated Creatinine Clearance 76.44 ml/min; Globulin 2.9 g/dL (2.2-4.2); Glucose 87 mg/dL (74-106); Lipase 28 U/L (13-75); Potassium 4.1 mmol/L (3.5-5.1); Protein, Total 6.5 g/dL (6.4-8.2); Sodium Level 142 mmol/L (136-145)
[2023-06-27] MEDS: Ketorolac 15 MG/ML Vial IV (19:27)
[2023-06-27 20:18] VITALS: BP 128/77; PULSE 69; RESP 16; TEMP 36.6; O2SAT 98
--- NOTE | 2023-06-27 20:38 | CT_ITS ---
STUDY: CT ABDOMEN AND PELVIS WITH CONTRAST REASON FOR EXAM: Female, 23 years old. llq abdominal pain RADIATION DOSAGE (If Supplied By Facility): CTDIvol = ( 9.54 ) mGy, DLP = ( 448.09 ) mGycm TECHNIQUE: Transaxial images were obtained from the dome of the diaphragm to the symphysis pubis without oral contrast. IV 100mL Isovue-300 was administered. Sagittal and coronal images were reconstructed. Individualized dose optimization techniques were used for this CT. COMPARISON: 10/11/2022 FINDINGS: The visualized lung bases are unremarkable. The visualized portions of the heart are within normal limits. Normal liver. Normal gallbladder and extrahepatic biliary system. Normal spleen. Normal pancreas. Normal bilateral adrenal glands. Normal right kidney. Normal left kidney. Normal visualized stomach. Normal small intestine. Normal colon. There are surgical clips in the region of the appendix consistent with a prior appendectomy. Normal abdominal aorta. Normal inferior vena cava. Normal retroperitoneum. Normal urinary bladder. Normal abdominal wall. Normal osseous structures. CT/Abdomen/Pelvis W IV Cont ONLY IMPRESSION: Normal enhanced CT of the abdomen and pelvis. Electronically Signed: Isidro Odell MD at 21:32 EST ,
[2023-06-27] MEDS: Morphine 4 MG/ML Syringe IV (20:58)
[2023-06-27] MEDS: Ondansetron 4 MG/2 ML Vial IV (20:58)
[2023-06-27 21:00] VITALS: BP 132/78; PULSE 86; RESP 16; O2SAT 98
== END 2023-06-27 23:04 | disposition home or self-care (01) ==
PROVIDERS: Emergency Provider Student in an Organized Health Care Education/Training Program; Visit Provider Student in an Organized Health Care Education/Training Program
DX: R10.9 Unspecified abdominal pain (principal); R11.2 Nausea with vomiting, unspecified; F17.290 Nicotine dependence, other tobacco product, uncomplicated
CPT/HCPCS: 74177; 80053; 81001; 83690; 84703; 85025; 96361; 96374; 96375; 99283; J7030; Q9967; A4216; J2405

== ENCOUNTER 2023-09-08 16:13 | Emergency (ER) | payer MEDICAID, SELFPAY ==
[2023-09-08 16:14] VITALS: BP 130/74; PULSE 97; RESP 18; TEMP 36.6; O2SAT 100; BMI 22.8
== END 2023-09-08 18:00 | disposition left against medical advice (07) ==
LOC: ED 18:03
DX: Z53.21 Procedure and treatment not carried out due to patient leaving prior to being seen by health care provider (principal)

== ENCOUNTER 2023-10-15 07:44 | Emergency (ER) | payer MEDICAID, SELFPAY ==
[2023-10-15 07:45] VITALS: BP 145/84; PULSE 58; RESP 16; TEMP 36.6; O2SAT 98; BMI 23.3
--- NOTE | 2023-10-15 08:03 | CT_ITS ---
EXAM: CT ABDOMEN AND PELVIS WITH INTRAVENOUS CONTRAST CLINICAL INDICATION: LLQ abd pain TECHNIQUE: Helically acquired images were obtained of the abdomen and pelvis with intravenous contrast. This CT exam was performed using one or more of the following dose reduction techniques: automated exposure control, adjustment of the mA and/or kV according to patient size, and/or use of iterative reconstruction technique. CONTRAST: IV 100mL Isovue-300 COMPARISON: No relevant prior studies available. FINDINGS: LOWER THORAX: Normal. Lung bases are clear. No cardiomegaly. No pericardial effusion. ABDOMEN: LIVER: Normal. Homogeneous. No focal mass. GALLBLADDER AND BILE DUCTS: Normal-appearing gallbladder. PANCREAS: Normal. No focal cystic or solid mass. SPLEEN: Normal. Normal size without focal cystic or solid mass. ADRENALS: Normal. No nodules. KIDNEYS AND URETERS: Normal. Normal renal size and position. No hydronephrosis. STOMACH AND BOWEL: Normal. No bowel distention. No focal inflammatory change. PELVIS: APPENDIX: Surgical clips at the base of the cecum consistent with appendectomy. BLADDER: Normal. REPRODUCTIVE: 2.4 cm left ovarian follicular cyst or corpus luteum is noted. Pelvic structures are otherwise unremarkable. ABDOMEN and PELVIS: INTRAPERITONEAL SPACE: Normal. No ascites or other fluid collection. No free air. BONES/JOINTS: No suspicious lytic or blastic abnormality. SOFT TISSUES: Normal. No discrete abdominal or pelvic wall hernia. VASCULATURE: Normal. Abdominal aorta is non-dilated. LYMPH NODES: Normal. No enlarged lymph nodes. CT/Abdomen/Pelvis W IV Cont ONLY IMPRESSION: No acute abdominal or pelvic abnormality. Electronically Signed: Leopoldo Szymanski MD at 8:53 EDT ,
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
[2023-10-15] MEDS: Morphine 4 MG/ML Syringe 6 MG IV (08:23)
[2023-10-15] MEDS: Ondansetron 4 MG/2 ML Vial IV ×2 (08:23→09:58)
[2023-10-15] MEDS: 0.9% Normal Saline (1000mL) 1,000 ML 1000 ML IV (08:23)
[2023-10-15 08:34] LABS: Absolute Lymphocyte Count 1.89 X10^3/uL (0.83-4.51); Basophil# 0.06 X10^3/uL; Basophil% 0.4 % (0-1); Hematocrit 42.5 % (37-47); Hemoglobin 13.9 g/dL (12.0-15.0); Lymphocyte # 1.89 X10^3/ul (0.83-4.51); Lymphocyte % 12.7 % (19-41); Mean Corp Hgb Conc 32.7 g/dL (32-36); Mean Corpuscular Volume 88.7 fL (81-99); Mean Platelet Vol. 11.5 fl (6.2-12.0); Monocyte# 0.52 X10^3/uL; Monocyte% 3.5 % (0-10); NRBC Flagged by Analyzer 0 % (0-5); Neutrophil # 12.04 X10^3/uL (2.7-7.7); Platelet Count 202 K/mm3 (150-450); RBC Distribution Width CV 12.4 % (11.6-14.6); RBC Distribution Width SD 40.9 fl (35.1-43.9); Red Blood Count 4.79 M/mm3 (4.2-5.4); White Blood Count 14.9 K/mm3 (4.4-11.0)
[2023-10-15 08:50] LABS: ALB/GLOB Ratio 1.2 RATIO (0.9-2.4); AST(SGOT) 11 U/L (15-37); Alanine Aminotransfer ALT/SGPT 17 U/L (13-56); Albumin, Serum 4.1 g/dL (3.2-5.0); Alkaline Phosphatase 70 U/L (45-117); Anion Gap 5 (5-15); BUN 11 mg/dL (7-18); BUN/Creat Ratio 11.7 RATIO (10-20); Calcium,Total 9.6 mg/dL (8.5-10.1); Chloride 110 mmol/L (98-107); Creatinine, Serum 0.94 mg/dL (0.55-1.02); EST Glomerular Filtration Rate 78 mL/min (>60); Est Glom Filt Rate - Afr Amer 94 mL/min (>60); Estimated Creatinine Clearance 79.69 ml/min; Globulin 3.3 g/dL (2.2-4.2); Glucose 116 mg/dL (74-106); Potassium 3.7 mmol/L (3.5-5.1); Protein, Total 7.4 g/dL (6.4-8.2); Sodium Level 139 mmol/L (136-145)
[2023-10-15 08:56] LABS: Internal QC Validated? YES +Cl - CLEAR BKGD; Pregnancy, Serum, hCG Quali. NEGATIVE Negative
[2023-10-15 09:20] LABS: Bacteria 0 SEEN /hpf (None Seen); Mucous, Urine 0 SEEN /hpf (<or=2+); Red Blood Cells-Urine 0 SEEN /hpf (0-5); White Blood Cells 0 SEEN /hpf (0-5)
[2023-10-15 09:21] LABS: Color, Urine Yellow (Yellow); Glucose, Dipstick Normal (Normal); Ketone-Dipstick Negative (Negative); Leukocyte Esterase-Dipstick Negative /ul (Negative); Nitrite-Dipstick Negative (Negative); Occult Blood-Urine Negative /ul (Negative); Protein-Dipstick 30 mg/dl (Negative); Urine Bilirubin Dipstick Negative (Negative); Urine Clarity Sl. Cloudy (Clear); Urine Urobilinogen Normal (Normal); Urine pH 6.5 (5.0 - 8.0)
[2023-10-15 09:29] LABS: Squamous Epithelial Cells - UA 0-5 SEEN /hpf (5-10)
[2023-10-15 09:44] VITALS: BP 132/77; PULSE 59; RESP 16; O2SAT 99
[2023-10-15] MEDS: Ketorolac 30 MG/ML Syringe IV (09:58)
[2023-10-15 10:03] VITALS: BP 132/77; PULSE 59; RESP 16; TEMP 36.2; O2SAT 99
== END 2023-10-15 10:03 | disposition home or self-care (01) ==
PROVIDERS: Emergency Provider Emergency Medicine; Visit Provider Emergency Medicine
DX: R10.32 Left lower quadrant pain (principal); R11.2 Nausea with vomiting, unspecified; Z90.49 Acquired absence of other specified parts of digestive tract; F17.290 Nicotine dependence, other tobacco product, uncomplicated; Z87.19 Personal history of other diseases of the digestive system
CPT/HCPCS: 74177; 80053; 81001; 84703; 85025; 96361; 96374; 96375; 96376; 99282; J7030; Q9967; A4216; J2405

== ENCOUNTER 2024-06-25 04:29 | Emergency (ER) | payer MEDICAID, SELFPAY ==
[2024-06-25 04:32] VITALS: BP 130/63; PULSE 100; RESP 18; TEMP 36.7; O2SAT 99; BMI 23.3
--- NOTE | 2024-06-25 04:40 | CT_ITS ---
EXAM: CT ABDOMEN AND PELVIS WITH INTRAVENOUS CONTRAST CLINICAL INDICATION: Mid abdominal pain, burning TECHNIQUE: Helically acquired images were obtained of the abdomen and pelvis with intravenous contrast. This CT exam was performed using one or more of the following dose reduction techniques: automated exposure control, adjustment of the mA and/or kV according to patient size, and/or use of iterative reconstruction technique. CONTRAST: IV 100mL Isovue-300 RADIATION DOSE: Total DLP: 399.75 mGy-cm. COMPARISON: Abdomen pelvis CT of 10/15/2023. FINDINGS: LOWER THORAX: Unremarkable. No acute basilar pulmonary infiltrates or pleural effusions. No significant pericardial effusion. No hiatal hernia. ABDOMEN: LIVER: Unremarkable. Homogeneous. No focal mass. GALLBLADDER AND BILE DUCTS: Unremarkable. No calcified gallstones. No gallbladder distention or wall edema. No intra- or extrahepatic biliary ductal dilation. PANCREAS: Unremarkable. No focal cystic or solid mass. SPLEEN: Unremarkable. Normal size without focal cystic or solid mass. ADRENALS: Unremarkable. No nodules. KIDNEYS AND URETERS: Unremarkable. Normal renal size and position. No hydronephrosis. Symmetric nephrograms. No renal or obstructing ureteral stone. STOMACH AND BOWEL: No gastric mural thickening, periduodenal inflammatory changes or distended small bowel loops. Suture material again noted about the cecum and ascending colon. No findings of small bowel obstruction, diverticulitis or colitis. A single uncomplicated diverticulum project from the descending colon. PELVIS: APPENDIX: Previous appendectomy. BLADDER: The urinary bladder is nearly empty. REPRODUCTIVE: Normal size uterus. Right ovary contains a 4 cm ovoid thin-walled unilocular cystic structure. No left adnexal abnormality. ABDOMEN and PELVIS: INTRAPERITONEAL SPACE: Unremarkable. No ascites or other fluid collection. No free air. BONES/JOINTS: Unremarkable. No suspicious lytic or blastic abnormality. SOFT TISSUES: Unremarkable. No discrete abdominal or pelvic wall hernia. VASCULATURE: Unremarkable. Abdominal aorta is non-dilated. LYMPH NODES: Unremarkable. No enlarged lymph nodes. CT/Abdomen/Pelvis W IV Cont ONLY IMPRESSION: 1. 4 cm right ovarian cyst; ACR White Paper guidelines (Luiz, et. al. JACR 2020;17(2):248-254) suggest no follow-up is necessary. 2. Previous appendectomy. 3. Minimal colonic diverticulosis without evidence for acute diverticulitis. 4. No evidence for small bowel obstruction or obstructive uropathy. Electronically Signed: Aleksandr Jimenez MD at 6:17 EST ,
--- NOTE | 2024-06-25 04:43 | ED.VIS.GI ---
HPI HPI - GI History of Present Illness Chief Complaint: Abd Pain Narrative Narrative: 24-year-old female past medical history of previous fatty tumor with colon resection, states that it was found to be diverticulitis. She also had an appendectomy at that time. This was approximately 2 years ago. She states she gets these flareups of abdominal pain where she gets a lot of mid abdominal pain and burning. Over the last 4 days, she is having abdominal pain associated with nausea and vomiting. No exacerbating or alleviating factors. She has felt febrile, but did not actually take her temperature. Last bowel movement was a few days ago as well. She has had similar episodes of this in the past. Last time may have been last year in September. This was almost 9 months ago. [facility] Medical History Injury of head and neck Asthma Anxiety Depression GERD (gastroesophageal reflux disease) Smoker Diverticulitis Chlamydia infection affecting Nicotine use Marijuana use Migraines Asthma ADHD Depression with anxiety Home Medications ?Medication ?Instructions ?Recorded ?Last Taken ?Type etonogestrel 68 mg subdermal 68 mg subdermal X1 Check with 10/11/22 10/11/22 08:00 History implant (Nexplanon) primary doctor ibuprofen 600 mg tablet 600 mg PO Q6H PRN PRN Pain 1-10 Or 10/15/22 Unknown Rx Fever #0 tabs dicyclomine 20 mg tablet 20 mg PO TID #20 tabs 06/25/24 Unknown Rx ondansetron 4 mg disintegrating 4 mg PO Q8H PRN PRN Nausea #10 tabs 06/25/24 Unknown Rx tablet Allergy/AdvReac Type Severity Reaction Status Date / Time No Known Allergies Allergy Verified 06/25/24 04:35 Family History Father Hypertrophic cardiomyopathy Grandfather Hypertrophic cardiomyopathy Surgical History History of tonsillectomy Social History Smoking Status: Current every day smoker tobacco type: e-cigarettes alcohol intake: current ROS ROS ED ROS Narrative Constitutional: Subjective fever, no chills. HEENT: No sore throat. No neck pain. No loss of vision. No rhinorrhea. Cardiovascular: No chest pain. No palpitations. Respiratory: No cough, no shortness of breath. Abdominal: Positive mid abdominal burning/abdominal pain. Positive nausea and vomiting. No diarrhea. Last bowel movement a few days ago. Genitourinary: No dysuria. No hematuria. Musculoskeletal: No myalgias. No arthralgias. Neurologic: No headaches. No dizziness. No lightheadedness. Skin: No rash. No change in color. Psychiatric: No depression. No anxiety. EXAM Physical Exam Narrative Exam Narrative: Afebrile. Vital signs noted. Ambulatory in ED to room. HEENT examination grossly unremarkable. Neck soft and supple. Cardiovascular examination reveals a regular rate and rhythm with borderline tachycardia. Lungs are clear to auscultation bilaterally. The abdomen is soft with diffuse tenderness in the mid abdomen without guarding or rebound. Positive bowel sounds. Neurological examination is nonfocal and nonlateralizing. Moves all extremities. Const Vital Signs: 06/25/24 04:32 Temperature 98.1 F Temperature Source Oral Pulse Rate 100 Respiratory Rate 18 Blood Pressure 130/63 H Blood Pressure Mean 85 Pulse Ox 99 Oxygen Delivery Method Room Air MDM MDM MDM Narrative Medical decision making narrative: Differential diagnosis includes but not limited to partial small bowel obstruction versus bowel obstruction versus diverticulitis versus abdominal wall pain versus nonspecific abdominal pain. I have low suspicion for ovarian pathology or ectopic . This is because the history and physical does not support this. I reviewed her prior ED visits and she had similar visits with negative CTs. She was administered morphine and ondansetron for analgesia. I reviewed her laboratory work and she has slight leukocytosis of 12.7 which is a is nonspecific, hemoglobin 12.9 with hematocrit 39.1 and platelet count normal at 207. Her electrolyte panel shows chloride elevated at 110 but normal BUN of 13 and creatinine 0.87, glucose elevated at 111 but normal anion gap of 7. AST low at 8. Lipase normal at 49 so I doubt pancreatitis. Serum is negative. While urinalysis shows WBCs 50-100, there are 50-100 squamous epithelial cells. I feel this is a contaminated specimen I do not feel antibiotics are indicated. I reviewed the radiology report of the CT of the abdomen and pelvis. There is no acute process, no diverticulitis, no bowel obstruction. There is a noted 4 cm right ovarian cyst, but I do not think this is the source of her pain and burning. I feel she can be discharged to follow-up. She was referred to gastroenterology and to her primary care provider on-call. She was written prescriptions for Bentyl and for Zofran which she had been given in the past as well. Return instructions to the emergency department were reviewed. Disposition is discharged home in stable condition. History & Record Review Discussion w/independent historian: Patient Additional record(s) reviewed:: Prior ED visit and Prior labs Lab Data Attestation: I reviewed the patient's lab results. Labs: Laboratory Results - last 24 hr 06/25/24 06/25/24 04:35 04:47 WBC 12.7 H RBC 4.37 Hgb 12.9 Hct 39.1 MCV 89.5 MCH 29.5 MCHC 33.0 RDW Std Deviation 42.4 RDW Coeff of Melchor 13.0 Plt Count 207 MPV 11.3 Immature Gran % (Auto) 0.400 Neut % (Auto) 37.6 L Lymph % (Auto) 46.9 H King % (Auto) 6.0 Eos % (Auto) 8.4 H Baso % (Auto) 0.7 Absolute Neuts (auto) 4.8 Absolute Lymphs (auto) 5.98 H Nucleated RBC % 0 Differential Comment SCANNED Sodium 140 Potassium 4.1 Chloride 110 H Carbon Dioxide 23.0 Anion Gap 7 BUN 13 Creatinine 0.87 Estim Creat Clear Calc 85.36 Est GFR (MDRD) Af Amer 102 Est GFR (MDRD) Non-Af 84 BUN/Creatinine Ratio 14.9 Glucose 111 H Calcium 9.2 Total Bilirubin 0.20 AST 8 L ALT 18 Alkaline Phosphatase 59 Total Protein 6.1 L Albumin 3.4 Globulin 2.7 Albumin/Globulin Ratio 1.3 Lipase 49 Serum , Qual NEGATIVE Urine Color Straw Urine Clarity Sl. Cloudy Urine pH 6.0 Ur Specific [place] 1.030 Urine Protein 15 H Urine Glucose (UA) Normal Urine Ketones Negative Urine Occult Blood Negative Urine Nitrite Negative Urine Bilirubin Negative Urine Urobilinogen 1 H Ur Leukocyte Esterase 100 H Urine RBC 0 SEEN Urine WBC 50-100 SEEN Ur Squamous Epith Cells 50-100 SEEN Urine Bacteria 3+ Urine Mucus 1+ Radiography Diagnostic Testing: Clinical Impression(s) from Imaging Studies Abdomen/Pelvis CT 06/25/24 04:40 IMPRESSION: 1. 4 cm right ovarian cyst; ACR White Paper guidelines (Dee, et. al. JACR 2020;17(2):248-254) suggest no follow-up is necessary. 2. Previous appendectomy. 3. Minimal colonic diverticulosis without evidence for acute diverticulitis. 4. No evidence for small bowel obstruction or obstructive uropathy. Electronically Signed: Aleksandr Jimenez MD at 6:17 EST , Discharge Plan Triage Chief Complaint: Abd Pain ED Provider: Nigel Rivera Dx/Rx/DC Orders Clinical Impression: Abdominal pain, Nausea and vomiting Instructions: ED Abdominal Pain Unkn Cause Fem, ED Pain, Acute, Uncertain Cause, ED Vomiting (Adult) Prescriptions: New dicyclomine 20 mg tablet 20 mg PO TID Qty: 20 0RF ondansetron 4 mg tablet,disintegrating 4 mg PO Q8H PRN PRN (Reason: Nausea) Qty: 10 0RF No Action Nexplanon 68 mg Implant 68 mg SUBDERMAL X1 ibuprofen 600 mg Tablet 600 mg PO Q6H PRN PRN (Reason: Pain 1-10 Or Fever) Qty: 0 0RF Primary Care Provider: Care Physician,No Primary Referrals: Lorrie Villegas MD [Med Staff - Manager Progressive Care] - As soon as possible Isaac Bertrand DO [Med Staff - Active Staff] - As soon as possible Care Physician,No Primary [Primary Care Provider] - Activity Restrictions/Additional Instructions: Return with fever, new or worsening symptoms. Follow-up with gastroenterology and/your primary care provider soon as possible. Print Language: Wolof Disposition Disposition: Home, Self Care
[2024-06-25] MEDS: Morphine 4 MG/ML Syringe IV (04:47)
[2024-06-25] MEDS: Ondansetron 4 MG/2 ML Vial IV (04:47)
[2024-06-25 04:49] LABS: Absolute Lymphocyte Count 5.98 X10^3/uL (0.83-4.51); Absolute Neutrophil Count 4.8 X10^3/uL (2.0-7.7); Basophil# 0.09 X10^3/uL; Basophil% 0.7 % (0-1); Eosinophil# 1.07 X10^3/uL; Eosinophils% 8.4 % (0-5); Hematocrit 39.1 % (37-47); Hemoglobin 12.9 g/dL (12.0-15.0); Lymphocyte # 5.98 X10^3/ul (0.83-4.51); Lymphocyte % 46.9 % (19-41); Mean Corpuscular Hgb 29.5 pg (27.0-32.0); Mean Corpuscular Volume 89.5 fL (81-99); Mean Platelet Vol. 11.3 fl (6.2-12.0); Monocyte# 0.76 X10^3/uL; NRBC Flagged by Analyzer 0 % (0-5); Neutrophil # 4.79 X10^3/uL (2.7-7.7); Neutrophil % 37.6 % (47-70); POSITIVE DIFFERENTIAL YES; POSITIVE MORPHOLOGY YES; Platelet Count 207 K/mm3 (150-450); RBC Distribution Width SD 42.4 fl (35.1-43.9); Red Blood Count 4.37 M/mm3 (4.2-5.4); White Blood Count 12.7 K/mm3 (4.4-11.0)
[2024-06-25 04:55] LABS: Red Blood Cells-Urine 0 SEEN /hpf (0-5)
[2024-06-25 05:02] LABS: Color, Urine Straw (Yellow); Glucose, Dipstick Normal (Normal); Ketone-Dipstick Negative (Negative); Leukocyte Esterase-Dipstick 100 /ul (Negative); Nitrite-Dipstick Negative (Negative); Occult Blood-Urine Negative /ul (Negative); Protein-Dipstick 15 mg/dl (Negative); Urine Bilirubin Dipstick Negative (Negative); Urine Clarity Sl. Cloudy (Clear); Urine Urobilinogen 1 mg/dl (Normal)
[2024-06-25 05:04] LABS: Internal QC Validated? YES +Cl - CLEAR BKGD; Pregnancy, Serum, hCG Quali. NEGATIVE Negative
[2024-06-25 05:11] LABS: ALB/GLOB Ratio 1.3 RATIO (0.9-2.4); AST(SGOT) 8 U/L (15-37); Alanine Aminotransfer ALT/SGPT 18 U/L (13-56); Albumin, Serum 3.4 g/dL (3.2-5.0); Alkaline Phosphatase 59 U/L (45-117); Anion Gap 7 (5-15); BUN 13 mg/dL (7-18); BUN/Creat Ratio 14.9 RATIO (10-20); Calcium,Total 9.2 mg/dL (8.5-10.1); Chloride 110 mmol/L (98-107); Creatinine, Serum 0.87 mg/dL (0.55-1.02); Differential Indicated SCAN CRITERIA MET; EST Glomerular Filtration Rate 84 mL/min (>60); Est Glom Filt Rate - Afr Amer 102 mL/min (>60); Estimated Creatinine Clearance 85.36 ml/min; Globulin 2.7 g/dL (2.2-4.2); Glucose 111 mg/dL (74-106); Lipase 49 U/L (13-75); Potassium 4.1 mmol/L (3.5-5.1); Protein, Total 6.1 g/dL (6.4-8.2); Sodium Level 140 mmol/L (136-145)
[2024-06-25 05:12] LABS: Bacteria 3+ /hpf (None Seen); Mucous, Urine 1+ /hpf (<or=2+); Squamous Epithelial Cells - UA 50-100 SEEN /hpf (5-10); White Blood Cells 50-100 SEEN /hpf (0-5)
[2024-06-25 05:51] LABS: Differential Comment SCANNED
[2024-06-25 06:36] VITALS: BP 121/60; PULSE 79; RESP 16; TEMP 36.7; O2SAT 98
== END 2024-06-25 06:36 | disposition home or self-care (01) ==
PROVIDERS: Emergency Provider Emergency Medicine; Visit Provider Emergency Medicine
DX: R10.9 Unspecified abdominal pain (principal); R11.2 Nausea with vomiting, unspecified; F17.290 Nicotine dependence, other tobacco product, uncomplicated

== ENCOUNTER 2024-09-14 12:13 | Emergency (ER) | payer MEDICAID, SELFPAY ==
[2024-09-14 12:14] VITALS: BP 127/101; PULSE 117; RESP 18; TEMP 36.6; O2SAT 98
--- NOTE | 2024-09-14 12:35 | ED.VIS.DENTA ---
HPI History of Present Illness Chief Complaint: Dental Detail of Chief Complaint: Dental pain Informant: patient Narrative Narrative: Patient presents to the emergency department with complaint of dental pain that started 3 days ago. Patient states that she bit into a piece of hard candy and cracked her tooth. She used some [place] type material to cover the cracked tooth. She continues to have pain and now swelling. She is felt hot at home but has not taken her temperature. She has a dentist appointment tomorrow at 8 AM but Tylenol not helping her pain. She is tried Orajel without any pain relief. [facility] Medical History (Updated 09/14/24 @ 12:[address] Phong Birch, DO) Injury of head and neck Asthma Anxiety Depression GERD (gastroesophageal reflux disease) Smoker Diverticulitis Chlamydia infection affecting Nicotine use Marijuana use Migraines Asthma ADHD Depression with anxiety Home Medications ?Medication ?Instructions ?Recorded ?Last Taken ?Type etonogestrel 68 mg subdermal 68 mg subdermal X1 Check with 10/11/22 10/11/22 08:00 History implant (Nexplanon) primary doctor ibuprofen 600 mg tablet 600 mg PO Q6H PRN PRN Pain 1-10 Or 10/15/22 Unknown Rx Fever #0 tabs dicyclomine 20 mg tablet 20 mg PO TID #20 tabs 06/25/24 Unknown Rx ondansetron 4 mg disintegrating 4 mg PO Q8H PRN PRN Nausea #10 tabs 06/25/24 Unknown Rx tablet clindamycin HCl 300 mg capsule 300 mg PO Q6H #40 CAPSULES 09/14/24 Unknown Rx (Cleocin HCl) hydrocodone-acetaminophen 5-325mg 1 tab PO Q4H PRN PRN Pain 2 days 09/14/24 Unknown Rx 5mg-325mg #10 TABLETS Allergy/AdvReac Type Severity Reaction Status Date / Time No Known Allergies Allergy Verified 09/14/24 12:14 Family History Father Hypertrophic cardiomyopathy Grandfather Hypertrophic cardiomyopathy Surgical History History of appendectomy History of tonsillectomy Social History Smoking Status: Current every day smoker tobacco type: e-cigarettes alcohol intake: current ROS ROS ED Review of Systems ROS Unobtainable: other Constitutional Constitutional ED: Reports lethargy; Denies chills, fever(s), sweats or weight loss Eyes Eyes: Denies blurry vision, change in vision or diplopia ENT ENT ED: Reports other Details: Dental pain ; Denies rhinorrhea or sore throat Cardiovascular Cardiovascular: Denies chest pain, orthopnea or racing heartbeat Respiratory/Chest Respiratory/Chest: Denies cough, dyspnea, dyspnea on exertion, orthopnea or sputum Gastrointestinal Gastrointestinal: Denies abdominal pain, diarrhea, nausea or vomiting Genitourinary Genitourinary ED: Denies dysuria, hematuria or urinary frequency Musculoskeletal Musculoskeletal: Denies arthralgias, back pain, myalgias or neck pain Integumentary Denies abscess, Abrasions or rash Neurologic Neurologic: Denies headache(s) or weakness Psychiatric Psychiatric: Denies anxiety, depression or suicidal thoughts Endocrine Endocrinology: Denies polydipsia, polyphagia or polyuria Hematologic/Lymphatic Hematologic/Lymphatic: Denies easy bleeding, easy bruising or lymphadenopathy Allergic/Immunologic Allergic/Immunologic ED: Denies mouth swelling, tongue swelling or urticaria EXAM Physical Exam Const Vital Signs: 09/14/24 12:14 Temperature 97.8 F Temperature Source Temporal Pulse Rate 117 H Respiratory Rate 18 Blood Pressure 127/101 H Blood Pressure Mean 109 Pulse Ox 98 Oxygen Delivery Method Room Air Positive well nourished and well developed General Appearance ED: well developed and NAD HEENT Reports TM's clear and moist mucous membranes HEENT Narrative: Dentition-patient has a broken and carry tooth left lower molar #18 at Center palpation. There are some mild gingival erythema and soft tissue swelling. No fluctuance or discrete abscess. No facial cellulitis. normocephalic and atraumatic; Negative for trauma or tenderness Tympanic Membrane ED: Yes TM's clear Eyes PERRL and EOMs intact bilaterally General Eye ED: Negative for pale conjunctiva or scleral icterus Neck no lymphadenopathy, supple and no JVD General: Negative for tenderness Chest Wall inspection of chest normal and palpation of chest normal Chest: Negative for tenderness Resp normal respiratory effort and clear to auscultation bilaterally Effort and Inspection: Negative for respiratory distress or pain with movement Auscultation: Negative for rhonchi, wheezes or diminished lung sounds Cardio regular rate, regular rhythm, S1 normal heart sound, S2 normal heart sound and no murmurs Peripheral Pulses: pulses 2+ throughout GI normal to inspection, nondistended, normoactive bowel sounds, soft to palpation, non-tender, non-distended and no masses Back/Spine no CVA tenderness and no thoracic nor lumbar tenderness Extremity normal to inspection General Extremety ED: Negative for edema General Extremity: Negative for edema Neuro oriented x3, CN's II-XII intact bilaterally, no sensory deficits noted and gait normal Sensorium / Orientation: awake, alert, oriented to person, oriented to place and oriented to time Motor Exam: strength 5/5 throughout and strength abnormal Psych mental status grossly normal Skin no rashes or lesions noted and no wounds MDM MDM MDM Narrative Medical decision making narrative: Patient presents with dental pain with a cracked tooth. She will be started on clindamycin and given Enderlin for pain. She is to keep her appointment with her dentist tomorrow. She does not have an abscess amenable to incision and drainage. Discharged home stable condition. Lab Data Attestation: I reviewed the patient's lab results. Discharge Plan Triage Chief Complaint: Dental ED Provider: Phong Birch Dx/Rx/DC Orders Clinical Impression: Pain, dental, Abscess, dental Instructions: Dental Abscess, ED Dental Pain, ED Dental Cavity Prescriptions: New clindamycin HCl [Cleocin HCl] 300 mg capsule 300 mg PO Q6H Qty: 40 0RF hydrocodone-acetaminophen 5-325 mg tablet 1 tab PO Q4H PRN PRN (Reason: Pain) 2 Days Qty: 10 0RF No Action Nexplanon 68 mg Implant 68 mg SUBDERMAL X1 ibuprofen 600 mg Tablet 600 mg PO Q6H PRN PRN (Reason: Pain 1-10 Or Fever) Qty: 0 0RF dicyclomine 20 mg tablet 20 mg PO TID Qty: 20 0RF ondansetron 4 mg tablet,disintegrating 4 mg PO Q8H PRN PRN (Reason: Nausea) Qty: 10 0RF Primary Care Provider: Care Physician,No Primary Referrals: Care Physician,No Primary [Primary Care Provider] - Print Language: Kinyarwanda Disposition Disposition: Home, Self Care
[2024-09-14] MEDS: Clindamycin HCl 150 MG Capsule 300 MG PO (12:47)
[2024-09-14 13:01] VITALS: BMI 26.4
== END 2024-09-14 13:07 | disposition home or self-care (01) ==
LOC: ED 13:02
PROVIDERS: Emergency Provider Emergency Medicine; Visit Provider Emergency Medicine
DX: K03.81 Cracked tooth (principal); K04.7 Periapical abscess without sinus; F17.290 Nicotine dependence, other tobacco product, uncomplicated
CPT/HCPCS: 99282

== ENCOUNTER 2024-10-30 08:18 | Emergency (ER) | payer MEDICAID, SELFPAY ==
[2024-10-30 08:19] VITALS: BP 122/91; PULSE 105; RESP 18; TEMP 37.1; O2SAT 98; BMI 23.1
--- NOTE | 2024-10-30 08:25 | ED.VIS.GI ---
HPI HPI - GI History of Present Illness Chief Complaint: Abd Pain Informant: patient Abdominal Pain/Flank Pain Onset: Hours (2) Context: Gradual Onset Timing: Continuous Quality: Burning Location: LUQ Worsened by: Nothing Relieved by: Nothing Nausea/Vomiting/Emesis GI Symptom: Positive for Nausea and Vomiting Quality: Positive for Nonbilious; Negative for Blood streaks, Coffee ground or Hematemesis Diarrhea/Melena/Hematochezia GI Symptom: Negative for Diarrhea, Melena or Hematochezia Associated Symptoms Associated Symptoms: Negative for Dysuria, Frequency or Hematuria Narrative Narrative: Patient presents with abdominal pain that began approximately 2 hours prior to arrival. Patient states it is gradually gotten worse. Patient describes it as burning. Patient states it is over the left upper abdomen. Patient states nothing makes it better and nothing makes it worse. Patient admits to some nausea and vomiting. Patient denies any hematemesis or coffee-ground emesis. Patient denies any diarrhea, melena, or hematochezia. Patient denies any dysuria, frequency, or hematuria. Patient states this is similar to prior flareups of her diverticulitis. Prior similar symptoms: Yes PFSH PFS Medical History (Updated 10/30/24 @ 11:[address] Luis Armando Becerril, DO) Injury of head and neck Asthma Anxiety Depression GERD (gastroesophageal reflux disease) Smoker Diverticulitis Chlamydia infection affecting Nicotine use Marijuana use Migraines Asthma ADHD Depression with anxiety Home Medications ?Medication ?Instructions ?Recorded ?Last Taken ?Type etonogestrel 68 mg subdermal 68 mg subdermal X1 Check with 10/11/22 10/11/22 08:00 History implant (Nexplanon) primary doctor ibuprofen 600 mg tablet 600 mg PO Q6H PRN PRN Pain 1-10 Or 10/15/22 Unknown Rx Fever #0 tabs dicyclomine 20 mg tablet 20 mg PO TID #20 tabs 06/25/24 Unknown Rx ondansetron 4 mg disintegrating 4 mg PO Q8H PRN PRN Nausea #10 tabs 06/25/24 Unknown Rx tablet clindamycin HCl 300 mg capsule 300 mg PO Q6H #40 CAPSULES 09/14/24 Unknown Rx (Cleocin HCl) hydrocodone-acetaminophen 5-325mg 1 tab PO Q4H PRN PRN Pain 2 days 09/14/24 Unknown Rx 5mg-325mg #10 TABLETS amoxicillin 875 mg-potassium 875 mg PO Q12H #20 TABLETS 10/30/24 Unknown Rx clavulanate 125 mg tablet Allergy/AdvReac Type Severity Reaction Status Date / Time No Known Allergies Allergy Verified 09/14/24 12:14 Family History Father Hypertrophic cardiomyopathy Grandfather Hypertrophic cardiomyopathy Surgical History (Updated 10/30/24 @ 08:[address] Luis Armando Becerril DO) H/O partial resection of colon History of appendectomy History of tonsillectomy Social History Smoking Status: Current every day smoker tobacco type: e-cigarettes alcohol intake: current ROS ROS ED Constitutional Constitutional ED: Reports chills, fever(s) and subjective Eyes Eyes: Denies blurry vision or change in vision ENT ENT ED: Denies rhinorrhea or sore throat Cardiovascular Cardiovascular: Denies chest pain or palpitations Respiratory/Chest Respiratory/Chest: Denies cough or dyspnea Gastrointestinal Gastrointestinal: Reports abdominal pain, nausea and vomiting; Denies diarrhea or melena Genitourinary Genitourinary ED: Denies dysuria or hematuria Musculoskeletal Musculoskeletal: Denies back pain or neck pain Integumentary Reports rash; Denies abscess Neurologic Neurologic: Denies headache(s) or weakness Allergic/Immunologic Allergic/Immunologic ED: Denies mouth swelling or urticaria EXAM Physical Exam Const Vital Signs: 10/30/24 08:19 10/30/24 10:18 Temperature 98.7 F Temperature Source Oral Pulse Rate 105 H 76 Respiratory Rate 18 15 Blood Pressure 122/91 H 111/73 Blood Pressure Mean 101 85 Pulse Ox 98 98 Oxygen Delivery Method Room Air Positive well nourished and well developed Constitutional Narrative: BMI is 23.2 General Appearance ED: well developed and NAD HEENT Reports moist mucous membranes Neck supple and no JVD Resp normal respiratory effort and clear to auscultation bilaterally Cardio regular rate and regular rhythm GI Palpation: soft and tender LLQ, LUQ, periumbilical and suprapubic; Negative for guarding or rebound tenderness present Neuro CN's II-XII intact bilaterally, moves all extremities and no sensory deficits noted Sensorium / Orientation: alert Motor Exam: strength 5/5 throughout Psych mental status grossly normal and thought process normal MDM MDM MDM Narrative Medical decision making narrative: Differential diagnosis includes diverticulitis, bowel obstruction, perforation, viral gastroenteritis, urinary tract infection, ectopic , ureteral calculus, and dehydration. CBC will be obtained to assess for leukocytosis and anemia. Basic metabolic profile will be obtained to assess for electrolyte abnormality and renal function. Urinalysis will be obtained to assess for urinary tract infection and hematuria. Serum hCG will be obtained to assess for . CT scan of the abdomen and pelvis will be obtained to assess for diverticulitis, bowel obstruction, perforation, and ureteral calculus. History & Record Review Additional record(s) reviewed:: Prior outpatient record, Prior ED visit and Prior labs Lab Data Attestation: I reviewed the patient's lab results. Lab results narrative: CBC was reviewed. There is a mild leukocytosis of 13.6. The remainder is within normal limits. Basic metabolic profile was reviewed and was essentially within normal limits. Serum hCG was reviewed and was negative. Urinalysis was reviewed. Leukocyte esterase was 25. There is 0-5 white blood cells. There are 10-25 epithelial cells. Labs: Laboratory Results - last 24 hr 10/30/24 10/30/24 10/30/24 08:28 08:55 09:41 WBC 13.6 H RBC 4.47 Hgb 13.7 Hct 40.6 MCV 90.8 MCH 30.6 MCHC 33.7 RDW Std Deviation 45.9 H RDW Coeff of Melchor 13.7 Plt Count 255 MPV 11.2 Immature Gran % (Auto) 0.400 Neut % (Auto) 56.9 Lymph % (Auto) 30.2 [place] % (Auto) 5.7 Eos % (Auto) 6.0 H Baso % (Auto) 0.8 Absolute Neuts (auto) 7.7 Absolute Lymphs (auto) 4.10 Nucleated RBC % 0 Sodium 140 Potassium 4.3 Chloride 108 Carbon Dioxide 21.3 Anion Gap 11 BUN 11 Creatinine 0.80 Estim Creat Clear Calc 92.83 Est GFR (MDRD) Non-Af 104 BUN/Creatinine Ratio 13.7 Glucose 94 Calcium 9.1 AST Cancelled ALT Cancelled Triglycerides Cancelled Cholesterol Cancelled LDL Cholesterol, Calc Cancelled VLDL Cholesterol Cancelled HDL Cholesterol Cancelled Cholesterol/HDL Ratio Cancelled Serum , Qual NEGATIVE Urine Color Yellow Urine Clarity Cloudy Urine pH 8.0 Ur Specific [place] 1.010 Urine Protein 15 H Urine Glucose (UA) Normal Urine Ketones Negative Urine Occult Blood Negative Urine Nitrite Negative Urine Bilirubin Negative Urine Urobilinogen Normal Ur Leukocyte Esterase 25 H Urine RBC 0 SEEN Urine WBC 0-5 SEEN Ur Squamous Epith Cells 10-25 SEEN Urine Bacteria 2+ Urine Mucus RARE Radiography Diagnostic Testing: Clinical Impression(s) from Imaging Studies Abdomen/Pelvis CT 10/30/24 09:17 IMPRESSION: Mildly thickened transverse colon which may reflect colitis. No bowel obstruction. Mildly inflamed right ovary with 2 cm cystic structure within which may reflect hemorrhagic versus corpus luteal cyst. Pelvic ultrasound may be warranted if there is concern for pelvic pathology. Mild urinary bladder wall thickening which may reflect cystitis versus partial nondistention; consider correlation with urinalysis. Reading Location: [id number] scan of the abdomen and pelvis was obtained. There is a mildly thickened transverse colon which may reflect colitis. There is no evidence of obstruction or perforation. There is a right ovarian cyst. There is no other acute abnormality noted. This was interpreted by the radiologist and was also independently reviewed by myself. Treatment and Re-Evaluation :: Patient was given IV fluids, morphine, and Zofran. Patient was still having some nausea and vomiting. Patient was given a dose of Reglan. Patient also began complaining of a migraine headache. Patient was advised that the Reglan would help with this as well. Patient was feeling better on reevaluation. Patient was advised of her findings. Patient was given a dose of Augmentin here. Patient was given a prescription for Augmentin. Patient was instructed to follow-up with her primary care physician in 5 to 7 days. Patient was instructed to return if worse in any way. Patient understood and was agreeable with the plan. All questions were answered. Discharge Plan Triage Chief Complaint: Abd Pain ED Provider: Luis Armando Becerril Dx/Rx/DC Orders Clinical Impression: Colitis, Headache Instructions: ED Understanding Colitis Prescriptions: New amoxicillin-pot clavulanate 875-125 mg tablet 875 mg PO Q12H Qty: 20 0RF No Action Nexplanon 68 mg Implant 68 mg SUBDERMAL X1 ibuprofen 600 mg Tablet 600 mg PO Q6H PRN PRN (Reason: Pain 1-10 Or Fever) Qty: 0 0RF clindamycin HCl [Cleocin HCl] 300 mg capsule 300 mg PO Q6H Qty: 40 0RF hydrocodone-acetaminophen 5-325 mg tablet 1 tab PO Q4H PRN PRN (Reason: Pain) 2 Days Qty: 10 0RF dicyclomine 20 mg tablet 20 mg PO TID Qty: 20 0RF ondansetron 4 mg tablet,disintegrating 4 mg PO Q8H PRN PRN (Reason: Nausea) Qty: 10 0RF Primary Care Provider: Care Physician,No Primary Referrals: Shawn Soto MD [Med Staff - Multi Skilled Operator] - 5-7 Days Care Physician,No Primary [Primary Care Provider] - Print Language: Yi Disposition Disposition: Home, Self Care
[2024-10-30] MEDS: Ondansetron 4 MG/2 ML Vial IV (08:44)
[2024-10-30] MEDS: 0.9% Normal Saline (1000mL) 1,000 ML 999 ML IV (08:44)
[2024-10-30] MEDS: Morphine 4 MG/ML Syringe IV (08:45)
[2024-10-30 08:47] LABS: Absolute Neutrophil Count 7.7 X10^3/uL (2.0-7.7); Basophil# 0.11 X10^3/uL; Basophil% 0.8 % (0-1); Eosinophil# 0.81 X10^3/uL; Hematocrit 40.6 % (37-47); Hemoglobin 13.7 g/dL (12.0-15.0); Lymphocyte % 30.2 % (19-41); Mean Corp Hgb Conc 33.7 g/dL (32-36); Mean Corpuscular Hgb 30.6 pg (27.0-32.0); Mean Corpuscular Volume 90.8 fL (81-99); Mean Platelet Vol. 11.2 fl (6.2-12.0); Monocyte# 0.78 X10^3/uL; Monocyte% 5.7 % (0-10); NRBC Flagged by Analyzer 0 % (0-5); Neutrophil # 7.73 X10^3/uL (2.7-7.7); Neutrophil % 56.9 % (47-70); Platelet Count 255 K/mm3 (150-450); RBC Distribution Width CV 13.7 % (11.6-14.6); RBC Distribution Width SD 45.9 fl (35.1-43.9); Red Blood Count 4.47 M/mm3 (4.2-5.4); White Blood Count 13.6 K/mm3 (4.4-11.0)
[2024-10-30 09:01] LABS: Internal QC Validated? YES +Cl - CLEAR BKGD; Pregnancy, Serum, hCG Quali. NEGATIVE Negative
[2024-10-30 09:06] LABS: Color, Urine Yellow (Yellow); Glucose, Dipstick Normal (Normal); Ketone-Dipstick Negative (Negative); Leukocyte Esterase-Dipstick 25 /ul (Negative); Nitrite-Dipstick Negative (Negative); Occult Blood-Urine Negative /ul (Negative); Protein-Dipstick 15 mg/dl (Negative); Urine Bilirubin Dipstick Negative (Negative); Urine Clarity Cloudy (Clear); Urine Urobilinogen Normal (Normal)
[2024-10-30] MEDS: Dicyclomine 20 MG/2 ML Vial IM (09:06)
[2024-10-30] MEDS: Metoclopramide 10 MG/2 ML Vial IV (09:09)
[2024-10-30 09:10] LABS: Anion Gap 11 (5-15); BUN 11 mg/dL (4-19); BUN/Creat Ratio 13.7 RATIO (10-20); Calcium,Total 9.1 mg/dL (7.6-11.0); Carbon Dioxide 21.3 mmol/L (21.0-32.0); Chloride 108 mmol/L (98-108); EST Glomerular Filtration Rate 104 (>60); Estimated Creatinine Clearance 92.83 ml/min (50-250); Glucose 94 mg/dL (70-99); Potassium 4.3 mmol/L (3.3-5.1); Sodium Level 140 mmol/L (133-145)
[2024-10-30 09:11] LABS: Bacteria 2+ /hpf (None Seen); Mucous, Urine RARE /hpf (<or=2+); Red Blood Cells-Urine 0 SEEN /hpf (0-5); Squamous Epithelial Cells - UA 10-25 SEEN /hpf (5-10); White Blood Cells 0-5 SEEN /hpf (0-5)
--- NOTE | 2024-10-30 09:17 | CT_ITS ---
PROCEDURE: ABDOMEN/PELVIS W IV CONT ONLY 10/30/2024 REASON FOR EXAM: ABDOMINAL PAIN TECHNIQUE: Abdomen and pelvis CT with intravenous contrast. Coronal and Sagittal reconstruction series were provided. CONTRAST: 100 mL of Isovue 370 One or more dose reduction techniques were used (e.g., Automated exposure control, adjustment of the mA and/or kV according to patient size, use of iterative reconstruction technique. RADIATION DOSE SUMMARY: DLP: 443 mGycm COMPARISON: None FINDINGS: Limited sections of the lung bases demonstrate no focal pulmonary mass. The liver, spleen, pancreas, both kidneys, and both adrenal glands demonstrate no acute findings. The gallbladder is unremarkable. The stomach is unremarkable. The aorta and IVC demonstrate no acute findings. There is no free air, free fluid or intestinal obstruction. The small bowel loops are not dilated. The appendix is not well seen/surgically removed. Evidence of prior bowel resection. No bowel obstruction. Scattered colonic diverticuli without acute diverticulitis. Mild thickening of the transverse colon where colitis is not excluded. The pelvic structures are intact. Mildly inflamed right ovary with 2 cm cystic structure within which may reflect hemorrhagic versus corpus luteal cyst. Mild urinary bladder wall thickening which may reflect cystitis versus partial nondistention; consider correlation with urinalysis. Visualized osseous structures demonstrate no acute abnormality. CT/Abdomen/Pelvis W IV Cont ONLY IMPRESSION: Mildly thickened transverse colon which may reflect colitis. No bowel obstruct ion. Mildly inflamed right ovary with 2 cm cystic structure within which may reflect hemorrhagic versus corpus luteal cyst. Pelvic ultrasound may be warranted if there is concern for pelvic pathology. Mild urinary bladder wall thickening which may reflect cystitis versus partial nondistention; consider correlation with urinalysis. Reading Location: [id number]
[2024-10-30 10:18] VITALS: BP 111/73; PULSE 76; RESP 15; O2SAT 98
[2024-10-30 11:03] VITALS: BP 111/77; PULSE 74; RESP 19; TEMP 36.7; O2SAT 98
[2024-10-30] MEDS: Amox/Clavulanate 875 MG Tablet PO (11:07)
--- NOTE | 2024-10-30 11:10 | CM.ED ---
Social Work Date of referral: 10/30/24 Reason for referral: patient not yet established with a PCP. Referred by: Social Work Identification Patient provided consent to social work visit; adult male present and patient was on the phone with her mother. Patient verbalized alarm of social service liaison at first due to not understanding why a social service liaison would be in her room, then voiced appreciation after social service liaison shared resources for a PCP. ([facility]) which patient became excited about as she already goes there for dental. No additional needs/concerns noted/requested at this time. Colette Guardado, SENIOR SOFTWARE DEVELOPMENT ENGINEER, ADMINISTRATIVE OFFICE SPECIALIST
== END 2024-10-30 11:10 | disposition home or self-care (01) ==
PROVIDERS: Emergency Provider Emergency Medicine; Visit Provider Emergency Medicine
DX: K52.9 Noninfective gastroenteritis and colitis, unspecified (principal); G43.909 Migraine, unspecified, not intractable, without status migrainosus; F17.290 Nicotine dependence, other tobacco product, uncomplicated
CPT/HCPCS: 74177; 80048; 81001; 84703; 85025; 96361; 96372; 96374; 96375; 99283; Q9967; J2405

== ENCOUNTER 2025-01-01 09:19 | Emergency (ER) | payer MEDICAID, SELFPAY ==
[2025-01-01 09:20] VITALS: BP 135/83; PULSE 97; RESP 18; TEMP 36.9; O2SAT 100; BMI 22.3
--- NOTE | 2025-01-01 09:43 | EDS_ITS ---
HPI History of Present Illness Chief Complaint: Sore Throat Informant: patient Narrative Narrative: Patient 24-year-old female with history of tobacco use (vapes), asthma, prior tonsillectomy, GERD, depression and anxiety as well as recent diagnosis of HPV of the cervix (scheduled for colposcopy) who previously received Gardasil vaccine presenting for evaluation of sore throat and cough. She has had a cough for the past 2 weeks. She had a burning chest discomfort that is rating to her throat. She is her voice has become hoarse. She feels that there is a knot or lump in the back of her throat is making swallowing well hard. She denies any fever or chills. Denies any URI symptoms. She states that at night her breathing feels worse and she has a hard time laying down because she is wheezing. She does have an albuterol inhaler which she is using with minimal relief. She was Her symptoms online and is concerned that she could have cancer in her neck causing her symptoms given her recent diagnosis of HPV. She came in for further evaluation. She denies any sick contacts. No other complaints or concerns reported at this time. She denies any unintentional weight loss, night sweats or neck swelling. [facility] Medical History HPV (human papilloma virus) infection Injury of head and neck Asthma Anxiety Depression GERD (gastroesophageal reflux disease) Smoker Diverticulitis Chlamydia infection affecting Nicotine use Marijuana use Migraines Asthma ADHD Depression with anxiety Home Medications ?Medication ?Instructions ?Recorded ?Last Taken ?Type etonogestrel 68 mg subdermal 68 mg subdermal X1 Check with 10/11/22 10/11/22 08:00 History implant (Nexplanon) primary doctor ibuprofen 600 mg tablet 600 mg PO Q6H PRN PRN Pain 1 -10 Or 10/15/22 Unknown Rx Fever #0 tabs dicyclomine 20 mg tablet 20 mg PO TID #20 tabs Unknown Rx ondansetron 4 mg disintegrating 4 mg PO Q8H PRN PRN Na usea #10 tabs 06/25/24 Unknown Rx tablet clindamycin HCl 300 mg capsule 300 mg PO Q6H #40 CAPSU LES 09/14/24 Unknown Rx (Cleocin HCl) hydrocodone-acetaminophen 5-325mg 1 tab PO Q4H PRN PRN Pain 2 days 09/14/24 Unknown Rx 5mg-325mg #10 TABLETS amoxicillin 875 mg-potassium 875 mg PO Q12H #20 TABLET S 10/30/24 Unknown Rx clavulanate 125 mg tablet albuterol sulfate 90 mcg/actuation 1 - 2 puff inhalati on Q4H PRN PRN 01/01/25 Unknown Rx aerosol inhaler (Ventolin HFA) Wheezing #1 inh prednisone 20 mg tablet 40 mg (2 x 20 mg) PO DAILY # 10 tabs 01/01/25 Unknown Rx Allergy/AdvReac Type Severity Reaction Status Date / Time No Known Allergies Allergy Verified 01/01/25 09:21 Family History Father Hypertrophic cardiomyopathy Grandfather Hypertrophic cardiomyopathy Surgical History H/O partial resection of colon History of appendectomy History of tonsillectomy Social History Smoking Status: Current every day smoker tobacco type: e-cigarettes alcohol intake: current ROS ROS ED Constitutional Constitutional ED: Denies chills, fever(s) or sweats ENT ENT ED: Reports sore throat; Denies ear pain or rhinorrhea Cardiovascular Cardiovascular: Denies chest pain or palpitations Respiratory/Chest Respiratory/Chest: Reports cough, dyspnea and other Details: Wheezing ; Denies sputum Gastrointestinal Gastrointestinal: Denies abdominal pain, nausea or vomiting Musculoskeletal Musculoskeletal: Denies arthralgias or myalgias Integumentary Denies rash Neurologic Neurologic: Denies weakness Psychiatric Psychiatric: Reports anxiety EXAM Physical Exam Const Vital Signs: 01/01/25 09:20 01/01/25 10:08 Temperature 98.4 F Temperature Source Oral Pulse Rate 97 91 Respiratory Rate 18 16 Respiratory Pattern Normal Blood Pressure 135/83 H Blood Pressure Mean 100 Pulse Ox 100 Oxygen Delivery Method Room Air Positive well nourished and well developed General Appearance ED: well developed and NAD HEENT Reports moist mucous membranes HEENT Narrative: Mild injection of the posterior oropharynx. Uvula is midline. No mass or swelling appreciated. Tonsils surgically absent Eyes PERRL Neck supple and no JVD Neck Narrative: No lymphadenopathy present Chest Wall inspection of chest normal Resp normal respiratory effort Resp Narrative: Tight breath sounds with diffuse wheezing present GI normal to inspection, nondistended, normoactive bowel sounds and non-tender Extremity normal to inspection General Extremety ED: Negative for edema General Extremity: Negative for edema Neuro oriented x3 Sensorium / Orientation: alert Psych mental status grossly normal Skin no rashes or lesions noted and no wounds MDM MDM MDM Narrative Medical decision making narrative: Patient valuated her cough and sore throat. She has a hoarse voice. Patient appears nontoxic in no acute distress. Vital signs are normal. She has diffuse wheezing on exam with tight breath sounds. She has some injection of her throat consistent more with irritation. No masses appreciated. Her voice is mildly hoarse. Differential includes viral syndrome, bronchitis, asthma exacerbation, pneumonia and less likely neoplasm. Explained that positive HPV of the cervix does not necessarily mean that she will have throat cancer and that it be very atypical to present at her age. More likely her sore throats and symptoms are associated with her recent coughing and what ever is going on with her respiratory illness. Will give a DuoNeb and perform chest x-ray. Discussed I can refer her to ENT for further evaluation of her concern of oral pharyngeal HPV. Repeat exam lung sounds have improved. She states she physic she is wheezing less. Chest x-ray reviewed by myself as well as radiology does not show any acute infiltrate. Patient be discharged home on a burst of steroid as well as a refill of her albuterol inhaler. Do not think she requires antibiotics at this time as I do not suspect bacterial infection based on HPI, physical exam and chest x-ray. Is given referral for ENT for her concern of possible oropharyngeal HPV (I did discuss I think this is quite unlikely) and also given referral for primary care doctor. Given return precautions. Counseled on using [id number] throat lozenges, ibuprofen and Tylenol as needed for discomfort. Encouraged tobacco cessation. Radiography Diagnostic Testing: Clinical Impression(s) from Imaging Studies Chest X-Ray 01/01/25 09:50 IMPRESSION: No acute cardiopulmonary abnormalities. Reading Location: [facility] Discharge Plan Triage Chief Complaint: Sore Throat ED Provider: Mona Watts Dx/Rx/DC Orders Clinical Impression: Bronchitis, Wheezing, Acute sore throat, Current every day nicotine vaping Instructions: ED Bronchitis with Wheezing (Adult) Prescriptions: New prednisone 20 mg tablet 40 mg PO DAILY Qty: 10 0RF albuterol sulfate [Ventolin HFA] 90 mcg/actuation HFA aerosol inhaler 1 - 2 puff inhalation Q4H PRN PRN (Reason: Wheezing) Qty: 1 0RF No Action Nexplanon 68 mg Implant 68 mg SUBDERMAL X1 ibuprofen 600 mg Tablet 600 mg PO Q6H PRN PRN (Reason: Pain 1-10 Or Fever) Qty: 0 0RF clindamycin HCl [Cleocin HCl] 300 mg capsule 300 mg PO Q6H Qty: 40 0RF hydrocodone-acetaminophen 5-325 mg tablet 1 tab PO Q4H PRN PRN (Reason: Pain) 2 Days Qty: 10 0RF dicyclomine 20 mg tablet 20 mg PO TID Qty: 20 0RF ondansetron 4 mg tablet,disintegrating 4 mg PO Q8H PRN PRN (Reason: Nausea) Qty: 10 0RF amoxicillin-pot clavulanate 875-125 mg tablet 875 mg PO Q12H Qty: 20 0RF Primary Care Provider: Care Physician,No Primary Referrals: Haider Lang MD [Med Staff - Active Staff] - Bee Thomson MD [Med Staff - Flask Cleaner] - Care Physician,No Primary [Primary Care Provider] - Print Language: [place] Disposition Disposition: Home, Self Care
--- OUTSIDE RECORDS SUMMARY | 2025-01-01 09:45 | XMS RPT_ITS | CCD ---
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 SENSITIVE EXAM: The sensitive examination was discussed with the Patient or Patient's Authorized Shearing Supervisor. As applicable, any other physician, advance practice provider, medical student, or other health professional student that will be observing or involved in the sensitive examination for educational or training purposes was discussed with the Patient or Authorized Shearing Supervisor. The Patient or Authorized Shearing Supervisor has agreed to proceed with the sensitive examination. (Sensitive examination includes inspection and/or palpation of the breasts, pelvis, prostate and anorectal regions). EXAM: BP 122/88 Ht 5' 3.5 (1.61m) Wt 129 lb (58.5kg) LMP 12/01/2024 BMI 22.49 kg/(m2). GENERAL: pleasant, female in no apparent distress HEENT: Normocephalic, atraumatic, mucus membranes moist, and no lesions NECK: Supple, full range of motion, no adenopathy, and thyroid normal DERMATOLOGY: Normal, without lesions, non-icteric, and non-hirsute BREAST: soft, non-tender, symmetric, no dominant mass, normal nipple-areolar complex, no lymphadenopathy, and no nipple discharge CHEST: Normal inspiratory effort ABDOMEN: soft, non-tender, and no masses PELVIC: external genitalia normal, normal Bartholin's glands, urethra, [place]'s glands, no vulvar lesions, no cervical lesions, good vaginal support, physiologic (more content not included)... Normal [facility] HCG QUANTITATIVEon HCG.beta subunit Qn [facility] Comment on above: Negative HCG.beta subunit Qnon 2024 Interpretation and review of laboratory results Normal [facility] HIGH RISK HUMAN PAPILLOMA ANNA (HPV), PCR FOR DETECTION AND GENOTYPINGon 12-22-2024 HPV 16 Ag Ql (Unsp spec) Not detected Normal Not detected [facility] Comment on above: Order Comment: Speci men Type: FLUID SPECIMEN Ordering Facility: [facility] Address: [address] [place] [address] Performed By: #### H PVHRT #### [facility] CLIA [id number] [address] [place] [address] [id number], [place] [address] [place] HPV 18 Ag Ql (Unsp spec) Not detected Normal Not detected [facility] Comment on above: Order Comment: Speci men Type: FLUID SPECIMEN Ordering Facility: [facility] Address: [address] [place] [address] Performed By: #### H PVHRT #### [facility] CLIA [id number] [address] [place] [address] [place] HPV 31+33+35+39+45+51+52+5 6+58+59+66+68 DNA ANURADHA+probe Ql (Cvx) Detected Abnormal Not detected [facility] Comment on above: Order Comment: Speci men Type: FLUID SPECIMEN Ordering Facility: [facility] Address: [address] [place] [address] Result Comment: High Risk HPV Other Type includes HPV types 31, 33, 35, 39, 45, 51, 52, 56, 58, 59, 66 and 68. Performed By: #### H PVHRT #### [facility] CLIA [id number] [address] [place] [address] [place] PAP TESTon 12-22-2024 ADEQUACY Normal [facility] Comment on above: Order Comment: Speci men Type: FLUID SPECIMEN Ordering Facility: [facility] Address: [address] [place] [address] Result Comment: Sati sfactory for interpretation. Transformation zone present Performed By: #### L [id number] #### [facility] CLIA [id number] [address] [place] [address] [place] [facility] CLIA [id number] [address] [place] [address] [place] CASE REPORT Normal [facility] Comment on above: Order Comment: Speci men Type: FLUID SPECIMEN Ordering Facility: [facility] Address: [address] [place] [address] Result Comment: Gyne cologic Cytology Report Case: [id number] Authorizing Provider: Janelle Ennis APRN.PRINTER MACHINE Collected: 12/22/2024 02:41 PM Ordering Location: OB/Gynecology Received: 12/22/2024 04:51 PM First Screen: Fabiola Woodward, [place], ASCP Pathologist: Manuela Woodward MD Specimen: Pap Test, ThinPrep, Cervix Performed By: #### L [id number] #### [facility] CLIA [id number] [address] [place] [address] [place] [facility] CLIA [id number] [address] [place] [address] [place] CLINICAL HISTORY, CYTOLOGY, FISHER DIP NET Routine Exam Normal [facility] Comment on above: Order Comment: Speci men Type: FLUID SPECIMEN Ordering Facility: [facility] Address: [address] [place] [address] Performed By: #### L [id number] #### [facility] CLIA [id number] [address] [place] [address] [place] [facility] CLIA [id number] [address] [place] [address] [place] CYTOLOGY PAP OTHER INTERPRETATION Predominance of coccobacilli consistent with shift in vaginal edwin. Normal [facility] Comment on above: Order Comment: Speci men Type: FLUID SPECIMEN Ordering Facility: [facility] Address: [address] [place] [address] Performed By: #### L [id number] #### [facility] CLIA [id number] [address] [place] [address] [place] [facility] CLIA [id number] [address] [place] [address] STATES OF [facility] Normal [facility] Comment on above: Order Comment: Speci men Type: FLUID SPECIMEN Ordering Facility: [facility] Address: [address] [place] [address] Result Comment: Tech nical component, checkering machine adjuster screening performed at: [facility], [address] [place] [address] CLIA: [id number] Diagnostic interpretation performed at: [facility], [address] [place] [address] CLIA# [id number] Prescription Benefit Specialist: Nissa White MD Performed By: #### L [id number] #### [facility] CLIA [id number] [address] [place] [address] [place] [facility] CLIA [id number] [address] [place] [address] [place] INTERPRETATION, CYTOLOGY, FISHER DIP NET Abnormal [facility] Comment on above: Order Comment: Speci men Type: FLUID SPECIMEN Ordering Facility: [facility] Address: [address] [place] [address] Result Comment: Atyp ical squamous cells of undetermined significance (ASC-US). at 0848 EDT Performed By: #### L [id number] #### [facility] CLIA [id number] [address] [place] [address] [place] [facility] CLIA [id number] [address] [place] [address] [place] LMP 12/01/2024 Normal [facility] Comment on above: Order Comment: Speci men Type: FLUID SPECIMEN Ordering Facility: [facility] Address: [address] [place] [address] Performed By: #### L [id number] #### [facility] CLIA [id number] [address] [place] [address] [place] [facility] CLIA [id number] [address] [place] [address] [place] PAP DISCLAIMER COMMENT The Pap Smear is a screening test for cervical cancer. False negative results occur with all screening tests, emphasizing the need for rescreening at recommended intervals, and clinical correlation. Normal [facility] Comment on above: Order Comment: Speci men Type: FLUID SPECIMEN Ordering Facility: [facility] Address: [address] [place] [address] Performed By: #### L [id number] #### [facility] CLIA [id number] [address] [place] [address] [place] [facility] CLIA [id number] [address] [place] [address] [place] PAP GENERAL CATEGORIZATION Epithelial Cell Abnormality Normal [facility] Comment on above: Order Comment: Speci men Type: FLUID SPECIMEN Ordering Facility: [facility] Address: [address] [place] [address] Performed By: #### L [id number] #### [facility] CLIA [id number] [address] [place] [address] STATES [facility] CLIA [id number] [address] [place] [address] [place] PAP SURGICAL CLINICAL REVIEWER COMMENT This specimen has be en analyzed by the FDA-approved Symform System, which uses digital imaging and an enhanced artificial intelligence image analysis algorithm to identify malhotra of interest on the microscopic slide, to assist the instrument and controls technician and pathologist in evaluating cells on ThinPrep Pap tests. Following analysis, malhotra of interest on the microscopic slide selected by the algorithm are reviewed by a instrument and controls technician. If a sample requires hierarchical review, the pathologist will review the same malhotra of interest selected by the algorithm prior to final interpretation. Normal [facility] Comment on above: Order Comment: [place]i men Type: FLUID SPECIMEN Ordering Facility: [facility] Address: [address] [place] [address] Performed By: #### L [id number] #### [facility] [place] [id number] [address] [place] [address] [place] [facility] CLIA [id number] [address] [place] [address] [place] CNOVon 11-08-2024 CNOV Office Visit (UCWSTR ) OTTONIEL OSMAN ([id number]) 2000 F Date Time Provider Department 11/08/24 6:45 PM KRISHAN WING [facility] During your visit today, we recorded the following information about you: Temperature Pulse Respiration Blood pressure 98.7 degrees 93/minute 19/minute 116/72 Weight 60.5 kg Krishan Wing APRN.PRINTER MACHINE 11/08/2024 7:46 PM Signed [facility] Subjective Ottoniel Osman is a 24 year old female. Patient presents with: Trauma: Stepped on nail with right foot x 1 day Patient came in with right foot pain after stepping on a nail last night. Patient states that she has numbness and tingling around the puncture sites and feels like her foot is on fire. The patient notes some tenderness with palpation and states it is hard to walk on right foot. Patient states that she stepped on the nails barefoot and then washed the wounds with hydrogen peroxide and rubbing alcohol. Patient states that she has not had a tetanus shot since she was in 6th grade. Denies fever, chills, weakness, or altered mobility. The history is provided by the patient. No speech and language clinician was used. Trauma The current episode started yesterday. Associated symptoms include numbness. Pertinent negatives include no chills, fever, headaches, nausea, vomiting or weakness. Review of Systems Constitutional: Negative for chills and fever. Gastrointestinal: Negative for nausea and vomiting. Skin: Positive for wound. Neurological: Positive for numbness. Negative for weakness and headaches. PAST MEDICAL HISTORY Diagnosis Date Acute bronchiolitis [...] mouth three times a day as needed. (Patient not taking: Reported on 10/04/2023) FAMILY HISTORY Problem Relation Age of Onset Hypertension Mother Cardiomyopathy Father Crohn's Disease Brother Hypertension Maternal Grandmother Psychiatry Maternal Grandfather anxiety Prostate Cancer Maternal Grandfather Heart Paternal Grandfather of heart attack Social History Tobacco Use Smoking status: Former Current packs/day: 0.25 Average packs/day: 0.3 packs/day for 7.0 years (1.8 ttl pk-yrs) Types: Cigarettes Smokeless tobacco: Never Tobacco comments: 7 cigarettes a day Vaping Use Vaping status: Former Substances: Nicotine, THC Devices: Disposable Substance Use Topics Alcohol use: No Drug use: Yes Types: Marijuana Comment: for depression, anxiety and PTSD Objective BP 116/72 Pulse 93 Temp 37.1 ?C (98.7 ?F) Resp 19 Wt 60.5 kg (133 lb 6.1 oz) LMP 10/02/2023 (Approximate) SpO2 99% BMI 23.26 kg/m? Physical Exam HENT: Head: Normocephalic and atraumatic. Cardiovascular: Rate and Rhythm: Normal rate and regular rhythm. Heart sounds: Normal heart sounds. Pulmonary: Effort: Pulmonary effort is normal. Breath sounds: Normal breath sounds. Musculoskeletal: Right foot: Tenderness present. Skin: General: Skin is warm and dry. Findings: Wound present. Comments: Two puncture wounds on the bottom of right foot. No streaking, redness, swelling, or other signs of infection. Neurological: Mental Status: She is alert and oriented to person, place, and time. {ASSESSMENT/PLAN: 1. Puncture wound - ICD9: 879.8, ICD10: T14.8XXA - Patient given tetanus vaccine - Patient educated to soak right foot in epsom salt bath - Educated patient to follow up if puncture site develops streaking, becomes red, swollen or shows other signs of infection - Patient agreeable to care plan with no questions at this time - TDAP VACCINE, AGE 7+ YR (ADACEL, BOOSTRIX) Cortes Martin TEACHING PROVIDER (Physician/PA/WATCHGUARD) NOTE OF PERSONAL INVOLVEMENT IN CARE: I have personally seen and examined the patient and performed the (more content not included)... Normal [facility] Abdomen/Pelvis W IV Cont ONL Yon 10-30-2024 Abdomen/Pelvis W IV Cont ONLY [facility] [address] [place], [place] [address] Abdomen/Pelvis W IV Cont ONLY MR#: [id number] Acct: [id number] Name: OTTONIEL OSMAN LIA Rep #: [id number] : 2000 F 24 From: Darwin Morse PCP: Care Physician,No Primary Status: REG ER Study: Abdomen/Pelvis W IV Cont ONLY Date of Exam: Exam# [id number] Ordering Dr: Luis Armando Becerril DO PROCEDURE: ABDOMEN/PELVIS W IV CONT ONLY 10/30/2024 REASON FOR EXAM: ABDOMINAL PAIN TECHNIQUE: Abdomen and pelvis CT with intravenous contrast. Coronal and Sagittal reconstruction series were provided. CONTRAST: 100 mL of Isovue 370 One or more dose reduction techniques were used (e.g., Automated exposure control, adjustment of the mA and/or kV according to patient size, use of iterative reconstruction technique. RADIATION DOSE SUMMARY: DLP: 443 mGycm COMPARISON: None FINDINGS: Limited sections of the lung bases demonstrate no focal pulmonary mass. The liver, spleen, pancreas, both kidneys, and both adrenal glands demonstrate no acute findings. The gallbladder is unremarkable. The stomach is unremarkable. The aorta and IVC demonstrate no acute findings. There is no free air, free fluid or intestinal obstruction. The small bowel loops are not dilated. The appendix is not well seen/surgically removed. Evidence of prior bowel resection. No bowel obstruction. Scattered colonic diverticuli without acute diverticulitis. Mild thickening of the transverse colon where colitis is not excluded. The pelvic structures are intact. Mildly inflamed right ovary with 2 cm cystic structure within which may reflect hemorrhagic versus corpus luteal cyst. Mild urinary bladder wall thickening which may reflect cystitis versus partial nondistention; consider correlation with urinalysis. Visualized osseous structures demonstrate no acute abnormality. CT/Abdomen/Pelvis W IV Cont ONLY IMPRESSION: Mildly thickened transverse colon which may reflect colitis. No bowel obstruction. Mildly inflamed right ovary with 2 cm cystic structure within which may reflect hemorrhagic versus corpus luteal cyst. Pelvic ultrasound may be warranted if there is concern for pelvic pathology. Mild urinary bladder wall thickening which may reflect cystitis versus partial nondistention; consider correlation with urinalysis. Reading Location: [id number] CC: Dr. 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 Bladder Blower: Signed Normal [facility] Basic Metabolic Profile (BMP )on 10-30-2024 BUN/CRE 13.7 RATIO Normal 10-20 [facility] Comment on above: Performed By: #### L 100.0100, L700.6800, L500.2500 ####[facility] [address] [place], [address] Calcium [Mass/Vol] 9.1 mg/dL Normal 7.6-11.0 [facility] Comment on above: Performed By: #### L 100.0100, L700.6800, L500.2500 ####[facility] [address] [place], [address] Chloride [Moles/Vol] 108 mmol/L Normal 98-108 [facility] Comment on above: Performed By: #### L 100.0100, L700.6800, L500.2500 ####[facility] [address] [place], [address] CO2 [Moles/Vol] 21.3 mmol/L Normal 21.0-32.0 [facility] Comment on above: Performed By: #### L 100.0100, L700.6800, L500.2500 ####[facility] [address] [place], [address] Creatinine [Mass/Vol] 0.80 mg/dL Normal 0.70-1.20 [facility] Comment on above: Performed By: #### L 100.0100, L700.6800, L500.2500 ####[facility] [address] [place], [address] ECRCL 92.83 ml/min Normal 50-250 [facility] Comment on above: Performed By: #### L 100.0100, L700.6800, L500.2500 ####[facility] [address] [place], [address] GAP 11 Normal 5-15 [facility] Comment on above: Performed By: #### L 100.0100, L700.6800, L500.2500 ####[facility] [address] [place], [address] GFR/1.73 sq M.predicted among non-blacks MDRD (S/P/Bld) [Vol rate/Area] 104 mL/min/{1.73_m2} Normal >60 [facility] Comment on above: Result Comment: mL/m in/1.73m2 CKD-EPI Creatinine Equation (2020) Performed By: #### L 100.0100, L700.6800, L500.2500 ####[facility] [address] [place], [address] Glucose [Mass/Vol] 94 mg/dL Normal 70-99 [facility] Comment on above: Performed By: #### L 100.0100, L700.6800, L500.2500 ####[facility] [address] [place], [address] Potassium [Moles/Vol] 4.3 mmol/L Normal 3.3-5.1 [facility] Comment on above: Performed By: #### L 100.0100, L700.6800, L500.2500 ####[facility] [address] [place], [address] Sodium [Moles/Vol] 140 mmol/L Normal 133-145 [facility] Comment on above: Performed By: #### L 100.0100, L700.6800, L500.2500 ####[facility] [address] [place], [address] Urea nitrogen [Mass/Vol] 11 mg/dL Normal 4-19 [facility] Comment on above: Performed By: #### L 100.0100, L700.6800, L500.2500 ####[facility] [address] [place], [address] CBC W/Diff, Automatedon 05-2 -2024 Absolute Lymph 4.10 X10 3/uL Normal 0.83-4.51 [facility] Comment on above: Performed By: #### L 100.0100, L700.6800, L500.2500 ####[facility] [address] [place], [address] Absolute Neut 7.7 X10 3/uL Normal 2.0-7.7 [facility] Comment on above: Performed By: #### L 100.0100, L700.6800, L500.2500 ####[facility] [address] [place], [address] Basophils/100 WBC (Bld) 0.8 % Normal 0-1 [facility] Comment on above: Performed By: #### L 100.0100, L700.6800, L500.2500 ####[facility] [address] [place], [address] Eosinophils/100 WBC (Bld) 6.0 % High 0-5 [facility] Comment on above: Performed By: #### L 100.0100, L700.6800, L500.2500 ####[facility] [address] [place], [address] Erythrocyte distribution width (RBC) [Ratio] 13.7 % Normal 11.6-14.6 [facility] Comment on above: Performed By: #### L 100.0100, L700.6800, L500.2500 ####[facility] [address] [place], [address] Hematocrit (Bld) [Volume fraction] 40.6 % Normal 37-47 [facility] Comment on above: Performed By: #### L 100.0100, L700.6800, L500.2500 ####[facility] [address] [place], [address] Hemoglobin (Bld) [Mass/Vol] 13.7 g/dL Normal 12.0-15.0 [facility] Comment on above: Performed By: #### L 100.0100, L700.6800, L500.2500 ####[facility] [address] [place], [address] IG% 0.400 Normal 0.0-0.9 [facility] Comment on above: Result Comment: IG% - Immature Granulocytes (promyelocytes, myelocytes and metamyelocytes) > 1% indicates that a LEFT SHIFT is Present. Performed By: #### L 100.0100, L700.6800, L500.2500 ####[facility] [address] [place], [address] Lymphocytes/100 WBC (Bld) 30.2 % Normal 19-41 [facility] Comment on above: Performed By: #### L 100.0100, L700.6800, L500.2500 ####[facility] [address] [place], [address] MCH (RBC) [Entitic mass] 30.6 pg Normal 27.0-32.0 [facility] Comment on above: Performed By: #### L 100.0100, L700.6800, L500.2500 ####[facility] [address] [place], [address] MCHC (RBC) [Mass/Vol] 33.7 g/dL Normal 32-36 [facility] Comment on above: Performed By: #### L 100.0100, L700.6800, L500.2500 ####[facility] [address] [place], [address] MCV (RBC) [Entitic vol] 90.8 fL Normal 81-99 [facility] Comment on above: Performed By: #### L 100.0100, L700.6800, L500.2500 ####[facility] [address] [place], [address] Monocytes/100 WBC (Bld) 5.7 % Normal 0-10 [facility] Comment on above: Performed By: #### L 100.0100, L700.6800, L500.2500 ####[facility] [address] [place], [address] Neutrophils/100 WBC (Bld) 56.9 % Normal 47-70 [facility] Comment on above: Performed By: #### L 100.0100, L700.6800, L500.2500 ####[facility] [address] [place], [address] Nucleated RBC (Bld) [#/Vol] 0 10*3/uL Normal 0-5 [facility] Comment on above: Performed By: #### L 100.0100, L700.6800, L500.2500 ####[facility] [address] [place], [address] Platelet mean volume (Bld) [Entitic vol] 11.2 fL Normal 6.2-12.0 [facility] Comment on above: Performed By: #### L 100.0100, L700.6800, L500.2500 ####[facility] [address] [place], [address] Platelets (Bld) [#/Vol] 255 10*3/uL Normal 150-450 [facility] Comment on above: Performed By: #### L 100.0100, L700.6800, L500.2500 ####[facility] [address] [place], [address] RBC (Bld) [#/Vol] 4.47 10*6/uL Normal 4.2-5.4 [facility] Comment on above: Performed By: #### L 100.0100, L700.6800, L500.2500 ####[facility] [address] [place], [address] RDW SD 45.9 fl High 35.1-43.9 [facility] Comment on above: Performed By: #### L 100.0100, L700.6800, L500.2500 ####[facility] [address] [place], [address] WBC (Bld) [#/Vol] 13.6 10*3/uL High 4.4-11.0 [facility] Comment on above: Performed By: #### L 100.0100, L700.6800, L500.2500 ####[facility] [address] [place], [address] Emergency Department Summary on 10-30-2024 Emergency Department Summary [facility] Medical Records Department [address] [place] [address] Emergency Department Summary 10/30/24 MR#: [id number] Acct: [id number] Name: OTTONIEL OSMAN LIA Rep #: [id number] : 2000 24 From: Luis Armando Becerril DO PCP: Care Physician,No Primary Status:DEP ER Location: ED HPI HPI - GI History of Present Illness Chief Complaint: Abd Pain Informant: patient Abdominal Pain/Flank Pain Onset: Hours (2) Context: Gradual Onset Timing: Continuous Quality: Burning Location: LUQ Worsened by: Nothing Relieved by: Nothing Nausea/Vomiting/Emesis GI Symptom: Positive for Nausea and Vomiting Quality: Positive for Nonbilious; Negative for Blood streaks, Coffee ground or Hematemesis Diarrhea/Melena/Hematoc hezia GI Symptom: Negative for Diarrhea, Melena or Hematochezia Associated Symptoms Associated Symptoms: Negative for Dysuria, Frequency or Hematuria Narrative Narrative: Patient presents with abdominal pain that began approximately 2 hours prior to arrival. Patient states it is gradually gotten worse. Patient describes it as burning. Patient states it is over the left upper abdomen. Patient states nothing makes it better and nothing makes it worse. Patient admits to some nausea and vomiting. Patient denies any hematemesis or coffee-ground emesis. Patient denies any diarrhea, melena, or hematochezia. Patient denies any dysuria, frequency, or hematuria. Patient states this is similar to prior flareups of her diverticulitis. Prior similar symptoms: Yes PFSH [facility] Medical History (Updated 10/30/24 @ 11:[address] Luis Armando Becerril, DO) Injury of head and neck Asthma Anxiety Depression GERD (gastroesophageal reflux disease) Smoker Diverticulitis Chlamydia infection affecting Nicotine use Marijuana use Migraines Asthma ADHD Depression with anxiety Home Medications ???Medication ???Instructions ???Recorded ???Last Taken ???Type etonogestrel 68 mg subdermal 68 mg subdermal X1 Check with 10/2910/11/22 08:00 History implant (Nexplanon) primary doctor ibuprofen 600 mg tablet 600 mg PO Q6H PRN PRN Pain 1-10 Or 10/15/22 Unknown Rx Fever #0 tabs dicyclomine 20 mg tablet 20 mg PO TID #20 tabs 06/25/24 Unk nown Rx ondansetron 4 mg disintegrating 4 mg PO Q8H PRN PRN Nausea #10 tab s 06/25/24 Unknown Rx tablet clindamycin HCl 300 mg capsule 300 mg PO Q6H #40 CAPSULES 5 Unknown Rx (Cleocin HCl) hydrocodone-acetaminoph en 5-325mg 1 tab PO Q4H PRN PRN Pain 2 days 09/14/24 Unknown Rx 5mg-325mg #10 TABLETS amoxicillin 875 mg-potassium 875 mg PO Q12H #20 TABLETS 5 Unknown Rx clavulanate 125 mg tablet Allergy/AdvReac Type Severity Reaction Status Date / Time No Known Allergies Allergy Verified 09/14/24 12:14 Family History Father Hypertrophic cardiomyopathy Grandfather Hypertrophic cardiomyopathy Surgical History (Updated 10/30/24 @ 08:[address] Luis Armando Becerril DO) H/O partial resection of colon History of appendectomy History of tonsillectomy Social History Smoking Status: Current every day smoker tobacco type: e-cigarettes alcohol intake: current ROS ROS ED Constitutional Constitutional ED: Reports chills, fever(s) and subjective Eyes Eyes: Denies blurry vision or change in vision ENT ENT ED: Denies rhinorrhea or sore throat Cardiovascular Cardiovascular: Denies chest pain or palpitations Respiratory/Chest Respiratory/Chest: Denies cough or dyspnea Gastrointestinal Gastrointestinal: Reports abdominal pain, nausea and vomiting; Denies diarrhea or melena Genitourinary Genitourinary ED: Denies dysuria or hematuria Musculoskeletal Musculoskeletal: Denies back pain or neck pain Integumentary Reports rash; Denies abscess Neurologic Neurologic: Denies headache(s) or weakness Allergic/Immunologic Allergic/Immunologic ED: Denies mouth swelling or urticaria EXAM Physical Exam Const Vital Signs: 10/30/24 08:19 10/30/24 10:18 Temperature 98.7 F Temperature Source Oral Pulse Rate 105 H 76 Respiratory Rate 18 15 Blood Pressure 122/91 H 111/73 Blood Pressure Mean 101 85 Pulse Ox 98 98 Oxygen Delivery Method Room Air Positive well nourished and well developed Constitutional Narrative: BMI is 23.2 General Appearance ED: well developed and NAD HEENT Reports moist mucous membranes Neck supple and no JVD Resp normal respiratory effort and clear to auscultation bilaterally Cardio regular rate and regular rhythm GI Palpation: soft and tender LLQ, LUQ, periumbilical and suprapubic; Negative for guarding or rebound tenderness present Neuro CN's II-XII intact bilaterally, moves all extr (more content not included)... Normal [facility] Lipid Profileon 10-30-2024 TRIG Normal [facility] Comment on above: Result Comment: MARY G PATIENT ORDERS The drugs N-Acetylcysteine and Metamizole may falsely depress this assay. Performed By: #### L 500.4100 #### [facility] [address] [place], [address] CHOL Normal <=200 [facility] Comment on above: Result Comment: JOSE ALBERTO PATIENT ORDERS Performed By: #### L 500.4100 #### [facility] [address] [place], [address] CHOL:HDL Normal [facility] Comment on above: Result Comment: [facility] PATIENT ORDERS Performed By: #### L 500.4100 #### [facility] [address] [place], [address] CLDL Normal [facility] Comment on above: Result Comment: [facility] PATIENT ORDERS Performed By: #### L 500.4100 #### [facility] [address] [place], [address] HDL Normal [facility] Comment on above: Result Comment: [facility] PATIENT ORDERS Performed By: #### L 500.4100 #### [facility] [address] [place], [address] VLDL Normal 5-40 [facility] Comment on above: Result Comment: [facility] PATIENT ORDERS Performed By: #### L 500.4100 #### [facility] [address] [place], [address] ,Serum,hCG Quali.on 10-30-2024 HCG, SERUM QUAL Negative Normal [facility] Comment on above: Performed By: #### L 100.0100, L700.6800, L500.2500 ####[facility] [address] [place], [address] Urinalysis, Completeon 10-30 BACTERIA 2+ /hpf Normal None Seen [facility] Comment on above: Order Comment: COLLE CTOR TO SPECIFY Performed By: #### L 400.0001 ####[facility] [address] [place], [address] EPI,SQUAMOUS 10-25 SEEN Normal 5-10 [facility] Comment on above: Order Comment: JAYJAY CTOR TO SPECIFY Performed By: #### L 400.0001 ####[facility] [address] [place], [address] Mucus Ql (Urine sed) RARE Normal [facility] Comment on above: Order Comment: JAYJAY CTOR TO SPECIFY Performed By: #### L 400.0001 ####[facility] [address] [place], [address] RBC 0 SEEN Normal 0-5 [facility] Comment on above: Order Comment: JAYJAY CTOR TO SPECIFY Performed By: #### L 400.0001 ####[facility] [address] [place], [address] WBC 0-5 SEEN Normal 0-5 [facility] Comment on above: Order Comment: JAYJAY CTOR TO SPECIFY Performed By: #### L 400.0001 ####[facility] [address] [place], [address] Emergency Department Summary on 09-14-2024 Emergency Department Summary [facility] Medical Records Department [address] [place] [address] Emergency Department Summary 09/14/24 MR#: [id number] Acct: [id number] Name: OTTONIEL OSMAN LIA Rep #: [id number] : 2000 24 From: Phong Birch DO PCP: Care Physician,No Primary Status:DEP ER Location: ED HPI History of Present Illness Chief Complaint: Dental Detail of Chief Complaint: Dental pain Informant: patient Narrative Narrative: Patient presents to the emergency department with complaint of dental pain that started 3 days ago. Patient states that she bit into a piece of hard candy and cracked her tooth. She used some [place] type material to cover the cracked tooth. She continues to have pain and now swelling. She is felt hot at home but has not taken her temperature. She has a dentist appointment tomorrow at 8 AM but Tylenol not helping her pain. She is tried Orajel without any pain relief. [facility] Medical History (Updated 09/14/24 @ 12:[address] Phong Birch, DO) Injury of head and neck Asthma Anxiety Depression GERD (gastroesophageal reflux disease) Smoker Diverticulitis Chlamydia infection affecting Nicotine use Marijuana use Migraines Asthma ADHD Depression with anxiety Home Medications ???Medication ???Instructions ???Recorded ???Last Taken ???Type etonogestrel 68 mg subdermal 68 mg subdermal X1 Check with 10/2910/11/22 08:00 History implant (Nexplanon) primary doctor ibuprofen 600 mg tablet 600 mg PO Q6H PRN PRN Pain 1-10 Or 10/15/22 Unknown Rx Fever #0 tabs dicyclomine 20 mg tablet 20 mg PO TID #20 tabs 06/25/24 Unk nown Rx ondansetron 4 mg disintegrating 4 mg PO Q8H PRN PRN Nausea #10 tab s 06/25/24 Unknown Rx tablet clindamycin HCl 300 mg capsule 300 mg PO Q6H #40 CAPSULES 5 Unknown Rx (Cleocin HCl) hydrocodone-acetaminoph en 5-325mg 1 tab PO Q4H PRN PRN Pain 2 days 09/14/24 Unknown Rx 5mg-325mg #10 TABLETS Allergy/AdvReac Type Severity Reaction Status Date / Time No Known Allergies Allergy Verified 09/14/24 12:14 Family History Father Hypertrophic cardiomyopathy Grandfather Hypertrophic cardiomyopathy Surgical History History of appendectomy History of tonsillectomy Social History Smoking Status: Current every day smoker tobacco type: e-cigarettes alcohol intake: current ROS ROS ED Review of Systems ROS Unobtainable: other Constitutional Constitutional ED: Reports lethargy; Denies chills, fever(s), sweats or weight loss Eyes Eyes: Denies blurry vision, change in vision or diplopia ENT ENT ED: Reports other Details: Dental pain ; Denies rhinorrhea or sore throat Cardiovascular Cardiovascular: Denies chest pain, orthopnea or racing heartbeat Respiratory/Chest Respiratory/Chest: Denies cough, dyspnea, dyspnea on exertion, orthopnea or sputum Gastrointestinal Gastrointestinal: Denies abdominal pain, diarrhea, nausea or vomiting Genitourinary Genitourinary ED: Denies dysuria, hematuria or urinary frequency Musculoskeletal Musculoskeletal: Denies arthralgias, back pain, myalgias or neck pain Integumentary Denies abscess, Abrasions or rash Neurologic Neurologic: Denies headache(s) or weakness Psychiatric Psychiatric: Denies anxiety, depression or suicidal thoughts Endocrine Endocrinology: Denies polydipsia, polyphagia or polyuria Hematologic/Lymphatic Hematologic/Lymphatic: Denies easy bleeding, easy bruising or lymphadenopathy Allergic/Immunologic Allergic/Immunologic ED: Denies mouth swelling, tongue swelling or urticaria EXAM Physical Exam Const Vital Signs: 09/14/24 12:14 Temperature 97.8 F Temperature Source Temporal Pulse Rate 117 H Respiratory Rate 18 Blood Pressure 127/101 H Blood Pressure Mean 109 Pulse Ox 98 Oxygen Delivery Method Room Air Positive well nourished and well developed General Appearance ED: well developed and NAD HEENT Reports TM's clear and moist mucous membranes HEENT Narrative: Dentition-patient has a broken and carry tooth left lower molar #18 at Center palpation. There are some mild gingival erythema and soft tissue swelling. No fluctuance or discrete abscess. No facial cellulitis. normocephalic and atraumatic; Negative for trauma or tenderness Tympanic Membrane ED: Yes TM's clear Eyes PERRL and EOMs intact bilaterally General Eye ED: Negative for pale conjunctiva or scleral icterus Neck no lymphadenopathy, supple and no JVD General: Negative for tenderness Chest Wall inspection of chest normal and palpation of chest normal Chest: Negative for tenderness Resp normal respiratory effort and clear to auscul (more content not included)... Normal [facility] Chris 07-16-2024 KESHA Telephone (OBGYWM) OTTONIEL OSMAN ([id number]) 2000 F Date Time Provider Department 07/16/24 VIKY STUBBS During your visit today, we recorded the following information about you: Randy Moncada RN 07/16/2024 8:34 AM Signed Pt calls stating she had intercourse the other day, began to have discomfort in vaginal area so stopped intercourse. As of yesterday, Pt's boyfriend noticed knot down in Pt's vaginal area (bottom area from vagina to butt). Pt states it hurts, is sore/abbott rating 5/6 AND has taken ibuprofen and bath and only works for approx 30 minutes. Can barely sit down, can hardly wear underwear Voices Increase in vaginal discharge, but due to start period soon. Pt states she has had 2 children and has torn in past and needed repaired, but has never noticed this knot until now and has not had this pain until now. 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 Pt does have nexplanon removal appt tomorrow and advised Pt that unfortunately, she will need to still come tomorrow for that appt as we cannot do that today as well. Pt voiced understanding and appt made for 1pm with AG. ANDRES Cueto Toni, MA 07/16/2024 12:02 PM Signed Vaginal pain appointment and nexplanon appointment both booked for today with different providers- pt notified that will only be able to be seen for one. Spoke with patient this morning on the phone and advised to come at 11:[address] Roberts and would address vaginal pain at that time and reschedule nexplanon appointment while here at the office.Patient verbalized understanding of appointment time. Pt no showed 11:[address] Roberts. Allergies As of Date: 07/16/2024 Noted Allergy Reaction SEASONAL ALLERGIES 10/20/2009 5 - Intolerance Comments: Sneezing, itchy and watery eyes. Date Reviewed: 05/19/2024 Reviewed by: Mary Ann Martinez MA - Fully Assessed Prescriptions as of 07/16/2024 - phenazopyridine (PYRIDIUM) 200 mg tablet Take 1 tablet by mouth three times a day as needed. - cetirizine (ZYRTEC) 10 mg tablet Take 1 tablet by mouth once daily. - etonogestrel (NEXPLANON) subdermal implant 68 mg 1 Each by SUBDERMAL route as directed. Problem List As Of Date 07/16/2024 Noted Resolved Headache(784.0) [R51] 04/28/2011 04/23/2021 Unspecified asthma [J45.909] Short stature [R62.52] 08/14/2017 Dysmenorrhea [N94.6] 05/31/2013 04/23/2021 Fatigue [R53.83] 05/31/2013 04/23/2021 Depression [F32.A] 10/11/2014 Attention deficit hyperactivity disorder (ADHD)*01/25/2015 Family history of hypertrophic cardiomyopathy [*11/01/2015 Tobacco use during , antepartum [O99.3*07/03/2017 05/04/2018 History of depression [Z86.59] 07/03/2017 04/23/2021 Patient requested diagnostic testing [Z01.89] 07/03/2017 02/20/2018 Pelvic pain in [O26.899, R10.2] 07/03/2017 05/04/2018 Marijuana use [F12.90] 07/14/2017 Chlamydia trachomatis infection during pregnanc*07/16/2017 05/04/2018 Supervision of normal first teen in f*08/14/2017 05/04/2018 Nicotine use disorder [F17.200] 04/23/2021 Supervision of high risk in second tr*05/21/2021 12/03/2021 Chlamydia trachomatis infection in in*05/21/2021 12/03/2021 Encounter Status:Closed by RANDY MONCADA on 07/16/24 Normal [facility] Abdomen/Pelvis W IV Cont ONL Yon 06-25-2024 Abdomen/Pelvis W IV Cont ONLY [facility] Imaging Services [address] [place] [address] Abdomen/Pelvis W IV Cont ONLY MR#: [id number] Acct: [id number] Name: DAWSONOTTONIEL JOHNIE LIA Rep #: [id number] : 2000 F 24 From: Aleksandr lyn MD PCP: Care Physician,No Primary Status: REG ER Study: Abdomen/Pelvis W IV Cont ONLY Date of Exam: Exam# [id number] Ordering Dr: [place] [id number] EXAM: CT ABDOMEN AND PELVIS WITH INTRAVENOUS CONTRAST CLINICAL INDICATION: Mid abdominal pain, burning TECHNIQUE: Helically acquired images were obtained of the abdomen and pelvis with intravenous contrast. This CT exam was performed using one or more of the following dose reduction techniques: automated exposure control, adjustment of the mA and/or kV according to patient size, and/or use of iterative reconstruction technique. CONTRAST: IV 100mL Isovue-300 RADIATION DOSE: Total DLP: 399.75 mGy-cm. COMPARISON: Abdomen pelvis CT of 10/15/2023. FINDINGS: LOWER THORAX: Unremarkable. No acute basilar pulmonary infiltrates or pleural effusions. No significant pericardial effusion. No hiatal hernia. ABDOMEN: LIVER: Unremarkable. Homogeneous. No focal mass. GALLBLADDER AND BILE DUCTS: Unremarkable. No calcified gallstones. No gallbladder distention or wall edema. No intra- or extrahepatic biliary ductal dilation. PANCREAS: Unremarkable. No focal cystic or solid mass. SPLEEN: Unremarkable. Normal size without focal cystic or solid mass. ADRENALS: Unremarkable. No nodules. KIDNEYS AND URETERS: Unremarkable. Normal renal size and position. No hydronephrosis. Symmetric nephrograms. No renal or obstructing ureteral stone. STOMACH AND BOWEL: No gastric mural thickening, periduodenal inflammatory changes or distended small bowel loops. Suture material again noted about the cecum and ascending colon. No findings of small bowel obstruction, diverticulitis or colitis. A single uncomplicated diverticulum project from the descending colon. PELVIS: APPENDIX: Previous appendectomy. BLADDER: The urinary bladder is nearly empty. REPRODUCTIVE: Normal size uterus. Right ovary contains a 4 cm ovoid thin-walled unilocular cystic structure. No left adnexal abnormality. ABDOMEN and PELVIS: INTRAPERITONEAL SPACE: Unremarkable. No ascites or other fluid collection. No free air. BONES/JOINTS: Unremarkable. No suspicious lytic or blastic abnormality. SOFT TISSUES: Unremarkable. No discrete abdominal or pelvic wall hernia. VASCULATURE: Unremarkable. Abdominal aorta is non-dilated. LYMPH NODES: Unremarkable. No enlarged lymph nodes. CT/Abdomen/Pelvis W IV Cont ONLY IMPRESSION: 1. 4 cm right ovarian cyst; ACR White Paper guidelines (Dee, et. al. JACR 2020;17(2):248-254) suggest no follow-up is necessary. 2. Previous appendectomy. 3. Minimal colonic diverticulosis without evidence for acute diverticulitis. 4. No evidence for small bowel obstruction or obstructive uropathy. Electronically Signed: Aleksandr Jimenez MD at 6:17 EST , CC: Dr. Nigel Rivera MD; No Primary Care Physician Bladder Blower: Signed Normal [facility] Absolute neutrophil countOrd ered By: Nigel Rivera on 06-25-2024 Neutrophils (Bld) [#/Vol] 4.8 10*3/uL 2.0-7.7 [facility] Albumin to globulin ratioOrd ered By: Nigel Rivera on 06-25-2024 Albumin/Globulin [Mass ratio] 1.3 {ratio} 0.9-2.4 [facility] Basophil percentageOrdered B y: Nigel Rivera on 06-25-2024 Basophils/100 WBC (Bld) 0.7 % 0-1 [facility] Beta HCG ( test) Ql Ordered By: Nigel Rivera on 06-25-2024 Serum Test, Qualitative Negative [facility] Bilirubin Test strip Ql (U)O rdered By: Nigel Rivera on 06-25-2024 Bilirubin Ql (U) Negative Negative [facility] Bilirubin, totalOrdered By: Nigel Rivera on 06-25-2024 Bilirubin [Mass/Vol] 0.20 mg/dL 0.20-1.00 [facility] Comment on above: For patients on eltr ombopag therapy, use of Dimension [place] TBIL is not recommended. Blood urea nitrogen (BUN)/cr eatinine ratioOrdered By: Nigel Rivera on 06-25-2024 Urea nitrogen/Creatinine [Mass ratio] 14.9 mg/mg 10-20 [facility] CBC W/Diff, Automatedon 01- SMEAR COMMENT SCANNED Normal [facility] Comment on above: Performed By: #### L 100.0100, L500.4050, L501.2450 #### [facility] [address] [place], [address] Carbon dioxide measurementOr dered By: Nigel Rivera on 06-25-2024 CO2 [Moles/Vol] 23.0 mmol/L 21.0-32.0 [facility] Chloride measurementOrdered By: Nigel Rivera on 06-25-2024 Chloride [Moles/Vol] 110 mmol/L High 98-107 [facility] Comprehensive Metabolic Prof ilon 06-25-2024 Albumin [Mass/Vol] 3.4 g/dL Normal 3.2-5.0 [facility] Comment on above: Performed By: #### L 100.0100, L500.4050, L501.2450 #### [facility] [address] [place], [address] Albumin/Globulin [Mass ratio] 1.3 {ratio} Normal 0.9-2.4 [facility] Comment on above: Performed By: #### L 100.0100, L500.4050, L501.2450 #### [facility] [address] [place], [address] ALK P 59 U/L Normal 45-117 [facility] Comment on above: Performed By: #### L 100.0100, L500.4050, L501.2450 #### [facility] [address] [place], [address] ALT [Catalytic activity/Vol] 18 U/L Normal 13-56 [facility] Comment on above: Performed By: #### L 100.0100, L500.4050, L501.2450 #### [facility] [address] [place], [address] AST [Catalytic activity/Vol] 8 U/L Low 15-37 [facility] Comment on above: Performed By: #### L 100.0100, L500.4050, L501.2450 #### [facility] [address] [place], [address] Bilirubin [Mass/Vol] 0.20 mg/dL Normal 0.20-1.00 [facility] Comment on above: Result Comment: For patients on eltrombopag therapy, use of Dimension [place] TBIL is not recommended. Performed By: #### L 100.0100, L500.4050, L501.2450 #### [facility] [address] [place], [address] BUN/CRE 14.9 RATIO Normal 10-20 [facility] Comment on above: Performed By: #### L 100.0100, L500.4050, L501.2450 #### [facility] [address] [place], [address] CA,Total 9.2 mg/dL Normal 8.5-10.1 [facility] Comment on above: Performed By: #### L 100.0100, L500.4050, L501.2450 #### [facility] [address] [place], [address] Chloride [Moles/Vol] 110 mmol/L High 98-107 [facility] Comment on above: Performed By: #### L 100.0100, L500.4050, L501.2450 #### [facility] [address] [place], [address] CO2 [Moles/Vol] 23.0 mmol/L Normal 21.0-32.0 [facility] Comment on above: Performed By: #### L 100.0100, L500.4050, L501.2450 #### [facility] [address] [place], [address] Creatinine [Mass/Vol] 0.87 mg/dL Normal 0.55-1.02 [facility] Comment on above: Result Comment: The validity of the calculated GFR GFRAA in patients over 70 years has not been determined. Clinical correlation is essential. Performed By: #### L 100.0100, L500.4050, L501.2450 #### [facility] [address] [place], [address] ECRCL 85.36 ml/min Normal [facility] Comment on above: Performed By: #### L 100.0100, L500.4050, L501.2450 #### [facility] [address] [place], [address] EST GFR - AA 102 mL/min Normal >60 [facility] Comment on above: Result Comment: Afri can Cambodian GFR Calc Performed By: #### L 100.0100, L500.4050, L501.2450 #### [facility] [address] [place], [address] GAP 7 Normal 5-15 [facility] Comment on above: Performed By: #### L 100.0100, L500.4050, L501.2450 #### [facility] [address] [place], [address] GFR/1.73 sq M.predicted among non-blacks MDRD (S/P/Bld) [Vol rate/Area] 84 mL/min/{1.73_m2} Normal >60 [facility] Comment on above: Result Comment: Non- GFR Calc Performed By: #### L 100.0100, L500.4050, L501.2450 #### [facility] [address] [place], [address] Globulin (S) [Mass/Vol] 2.7 g/dL Normal 2.2-4.2 [facility] Comment on above: Performed By: #### L 100.0100, L500.4050, L501.2450 #### [facility] [address] [place], [address] Glucose [Mass/Vol] 111 mg/dL High 74-106 [facility] Comment on above: Result Comment: Fast ing Glucose result from 100 to 125 mg/dL suggests IMPAIRED HOMEOSTASIS per A.D.A. criteria. Performed By: #### L 100.0100, L500.4050, L501.2450 #### [facility] [address] [place], [address] Potassium [Moles/Vol] 4.1 mmol/L Normal 3.5-5.1 [facility] Comment on above: Performed By: #### L 100.0100, L500.4050, L501.2450 #### [facility] [address] [place], [address] Sodium [Moles/Vol] 140 mmol/L Normal 136-145 [facility] Comment on above: Performed By: #### L 100.0100, L500.4050, L501.2450 #### [facility] [address] [place], [address] T PROT 6.1 g/dL Low 6.4-8.2 [facility] Comment on above: Performed By: #### L 100.0100, L500.4050, L501.2450 #### [facility] [address] [place], [address] Urea nitrogen [Mass/Vol] 13 mg/dL Normal 7-18 [facility] Comment on above: Performed By: #### L 100.0100, L500.4050, L501.2450 #### [facility] [address] [place], [address] Emergency Department Summary on 06-25-2024 Emergency Department Summary [facility] Medical Records Department [address] [place] [address] Emergency Department Summary 06/25/24 MR#: [id number] Acct: [id number] Name: OTTONIEL OSMAN [facility] Rep #: [id number] : 2000 From: Nigel Rivera MD PCP: Care Physician,No Primary Status:REG ER Location: ED HPI HPI - GI History of Present Illness Chief Complaint: Abd Pain Narrative Narrative: 24-year-old female past medical history of previous fatty tumor with colon resection, states that it was found to be diverticulitis. She also had an appendectomy at that time. This was approximately 2 years ago. She states she gets these flareups of abdominal pain where she gets a lot of mid abdominal pain and burning. Over the last 4 days, she is having abdominal pain associated with nausea and vomiting. No exacerbating or alleviating factors. She has felt febrile, but did not actually take her temperature. Last bowel movement was a few days ago as well. She has had similar episodes of this in the past. Last time may have been last year in September. This was almost 9 months ago. PFSH PFS Medical History Injury of head and neck Asthma Anxiety Depression GERD (gastroesophageal reflux disease) Smoker Diverticulitis Chlamydia infection affecting Nicotine use Marijuana use Migraines Asthma ADHD Depression with anxiety Home Medications ???Medication ???Instructions ???Recorded ???Last Taken ???Type etonogestrel 68 mg subdermal 68 mg subdermal X1 Check with 10/11/22 10/11/22 08:00 History implant (Nexplanon) primary doctor ibuprofen 600 mg tablet 600 mg PO Q6H PRN PRN Pain 1-10 Or 10/15/22 Unknown Rx Fever #0 tabs dicyclomine 20 mg tablet 20 mg PO TID #20 tabs 06/25/24 Unknown Rx ondansetron 4 mg disintegrating 4 mg PO Q8H PRN PRN Nausea #10 tabs 06/25/24 Unknown Rx tablet Allergy/AdvReac Type Severity Reaction Status Date / Time No Known Allergies Allergy Verified 06/25/24 04:35 Family History Father Hypertrophic cardiomyopathy Grandfather Hypertrophic cardiomyopathy Surgical History History of tonsillectomy Social History Smoking Status: Current every day smoker tobacco type: e-cigarettes alcohol intake: current ROS ROS ED ROS Narrative Constitutional: Subjective fever, no chills. HEENT: No sore throat. No neck pain. No loss of vision. No rhinorrhea. Cardiovascular: No chest pain. No palpitations. Respiratory: No cough, no shortness of breath. Abdominal: Positive mid abdominal burning/abdominal pain. Positive nausea and vomiting. No diarrhea. Last bowel movement a few days ago. Genitourinary: No dysuria. No hematuria. Musculoskeletal: No myalgias. No arthralgias. Neurologic: No headaches. No dizziness. No lightheadedness. Skin: No rash. No change in color. Psychiatric: No depression. No anxiety. EXAM Physical Exam Narrative Exam Narrative: Afebrile. Vital signs noted. Ambulatory in ED to room. HEENT examination grossly unremarkable. Neck soft and supple. Cardiovascular examination reveals a regular rate and rhythm with borderline tachycardia. Lungs are clear to auscultation bilaterally. The abdomen is soft with diffuse tenderness in the mid abdomen without guarding or rebound. Positive bowel sounds. Neurological examination is nonfocal and nonlateralizing. Moves all extremities. Const Vital Signs: 06/25/24 04:32 Temperature 98.1 F Temperature Source Oral Pulse Rate 100 Respiratory Rate 18 Blood Pressure 130/63 H Blood Pressure Mean 85 Pulse Ox 99 Oxygen Delivery Method Room Air MDM MDM MDM Narrative Medical decision making narrative: Differential diagnosis includes but not limited to partial small bowel obstruction versus bowel obstruction versus diverticulitis versus abdominal wall pain versus nonspecific abdominal pain. I have low suspicion for ovarian pathology or ectopic . This is because the history and physical does not support this. I reviewed her prior ED visits and she had similar visits with negative CTs. She was administered morphine and ondansetron for analgesia. I reviewed her laboratory work and she has slight leukocytosis of 12.7 which is a is nonspecific, hemoglobin 12.9 with hematocrit 39.1 and platelet count normal at 207. Her electrolyte panel shows chloride elevated at 110 but normal BUN of 13 and creatinine 0.87, glucose elevated at 111 but normal anion gap of 7. AST low at 8. Lipase normal at 49 so I doubt pancreatitis. Serum is negative. While urinalysis shows WBCs 50-100, there are 50-100 squamous epithelial cells. I feel this is a cont (more content not included)... Normal [facility] Eosinophil percentageOrdered By: Nigel Rivera on 06-25-2024 Eosinophils/100 WBC (Bld) 8.4 % High 0-5 [facility] Epithelial cells.squamous LM Ql (Urine sed)Ordered By: Nigel Rivera on 06-25-2024 Epithelial cells.squamous LM.HPF (Urine sed) [#/Area] 50 /[HPF] 5-10 [facility] Erythrocyte distribution wid th (RBC) [Ratio]Ordered By: Nigel Rivera on 06-25-2024 Erythrocyte distribution width (RBC) [Entitic vol] 42.4 fL 35.1-43.9 [facility] Erythrocyte distribution wid th ratioOrdered By: Nigel Rivera on 06-25-2024 Erythrocyte distribution width (RBC) [Ratio] 13.0 % 11.6-14.6 [facility] Estimated glomerular filtrat ion rate (GFR) AmericanOrdered By: Nigel Rivera on 06-25-2024 Estimated GFR (MDRD) Amer 102 mL/min >60 [facility] Comment on above: GFR Calc Estimation of creatinine sheila aranceOrdered By: Nigel Rivera on 06-25-2024 Estimated Creatinine Clearance Calc 85.36 ml/min [facility] Glomerular filtration rate ( GFR) estimationOrdered By: Nigel Rivera on 06-25-2024 Estimated GFR (MDRD) Non-Af Amer 84 mL/min >60 [facility] Comment on above: Non- GFR Calc Glucose Ql (U)Ordered By: Pedrito Rivera on 06-25-2024 Urine Glucose (UA) Normal mg/dl Normal [facility] Glucose measurementOrdered B y: Nigel Rivera on 06-25-2024 Glucose [Mass/Vol] 111 mg/dL High 74-106 [facility] Comment on above: Fasting Glucose resu lt from 100 to 125 mg/dL suggests IMPAIRED HOMEOSTASIS per A.D.A. criteria. Hematocrit Auto (Bld) [Volum e fraction]Ordered By: Nigel Rivera on 06-25-2024 Hematocrit (Bld) [Volume fraction] 39.1 % 37-47 [facility] Hemoglobin measurementOrdere d By: Nigel Rivera on 06-25-2024 Hemoglobin (Bld) [Mass/Vol] 12.9 g/dL 12.0-15.0 [facility] Immature granulocytes/100 WB C Auto (Bld)Ordered By: Nigel Rivera on 06-25-2024 Immature granulocytes/100 WBC (Bld) 0.400 % 0.0-0.9 [facility] Comment on above: IG% - Immature Granu locytes (promyelocytes, myelocytes and metamyelocytes) > 1% indicates that a LEFT SHIFT is Present. Ketones Test strip Ql (U)Ord ered By: Nigel Rivera on 06-25-2024 Ketones Ql (U) Negative Negative [facility] - Chemistry and C hemistry - challengeOrdered By: Nigel Rivera on 06-25-2024 AST [Catalytic activity/Vol] 8 U/L Low 15-37 [facility] Lipaseon 06-25-2024 Lipase [Catalytic activity/Vol] 49 U/L Normal 13-75 [facility] Comment on above: Result Comment: Plerebeca daniels note: LIPASE revised reference range effective 22. New Lipase methodology. Expected to produce lower values than the previous assay method. NEW Reference Range: 13 - 75 U/L Performed By: #### L 100.0100, L500.4050, L501.2450 #### [facility] [place], [address] Lipase measurementOrdered By : Nigel Rivera on 06-25-2024 Lipase [Catalytic activity/Vol] 49 U/L 13-75 [facility] Comment on above: Please note:LIPASE r evised reference range effective 22. New Lipase methodology. Expected to produce lower values than the previous assay method. NEW Reference Range: 13 - 75 U/L Lymphocytes Auto (Unsp spec) [#/Vol]Ordered By: Nigel Rivera on 06-25-2024 Lymphocytes (Bld) [#/Vol] 5.98 10*3/uL High 0.83-4.51 [facility] Lymphocytes/100 WBC Auto (Un sp spec)Ordered By: Nigel Rivera on 01-17-2025 Lymphocytes/100 WBC (Bld) 46.9 % High 19-41 [facility] MCV (mean corpuscular volume ) determinationOrdered By: Nigel Rivera on 06-25-2024 MCV (RBC) [Entitic vol] 89.5 fL 81-99 [facility] Manual differential comment Nahid (Bld) [Interp]Ordered By: Nigel Rivera on 06-25-2024 Differential Comment SCANNED [facility] Mean corpuscular hemoglobin (MCH) determinationOrdered By: Nigel Rivera on 06-25-2024 MCH (RBC) [Entitic mass] 29.5 pg 27.0-32.0 [facility] Mean corpuscular hemoglobin concentration (MCHC) determinationOrdered By: Nigel Rivera on 06-25-2024 MCHC (RBC) [Mass/Vol] 33.0 g/dL 32-36 [facility] Mean platelet volume determi nationOrdered By: Nigel Rivera on 06-25-2024 Platelet mean volume (Bld) [Entitic vol] 11.3 fL 6.2-12.0 [facility] Microscopic analysis of urin e for red blood cells (RBC)Ordered By: Nigel Rivera on 06-25-2024 Urine RBC 0 SEEN /hpf 0-5 [facility] Monocyte percentageOrdered B y: Nigel Rivera on 06-25-2024 Monocytes/100 WBC (Bld) 6.0 % 0-10 [facility] Mucus LM Ql (Urine sed)Order ed By: Nigel Rivera on 06-25-2024 Mucus Ql (Urine sed) 1+ /hpf [facility] Neutrophil percentageOrdered By: Nigel Rivera on 06-25-2024 Neutrophils/100 WBC (Bld) 37.6 % Low 47-70 [facility] Nitrite Test strip Ql (U)Ord ered By: Nigel Rivera on 06-25-2024 Nitrite Ql (U) Negative Negative [facility] Nucleated red blood cell per centageOrdered By: Nigel Rivera on 06-25-2024 Nucleated RBC/100 WBC (Bld) [Ratio] 0 % 0-5 [facility] Platelet countOrdered By: Pedrito Rivera on 06-25-2024 Platelets (Bld) [#/Vol] 207 10*3/uL 150-450 [facility] Potassium measurementOrdered By: Nigel Rivera on 06-25-2024 Potassium [Moles/Vol] 4.1 mmol/L 3.5-5.1 [facility] ,Serum,hCG Quali.on 06-25-2024 HCG, SERUM QUAL Negative Normal [facility] Comment on above: Performed By: #### L 700.6800 #### [facility] [address] [place], [address] Protein Test strip Ql (U)Ord ered By: Nigel Rivera on 06-25-2024 Protein Ql (U) 15 mg/dl High Negative [facility] RBC Auto (Bld) [#/Vol]Ordere d By: Nigel Rivera on 06-25-2024 RBC (Bld) [#/Vol] 4.37 10*6/uL 4.2-5.4 [facility] Serum anion gap measurementO rdered By: Nigel Rivera on 06-25-2024 Anion gap [Moles/Vol] 7 mmol/L 5-15 [facility] Serum globulin measurementOr dered By: Nigel Rivera on 06-25-2024 Globulin (S) [Mass/Vol] 2.7 g/dL 2.2-4.2 [facility] Serum or plasma alanine finley otransferase (ALT) measurementOrdered By: Nigel Rivera on 06-25-2024 ALT [Catalytic activity/Vol] 18 U/L 13-56 [facility] Serum or plasma albumin honey urement (mass/volume)Ordered By: Nigel Rivera on 06-25-2024 Albumin [Mass/Vol] 3.4 g/dL 3.2-5.0 [facility] Serum or plasma alkaline kalyani sphatase measurementOrdered By: Nigel Rivera on 06-25-2024 ALP [Catalytic activity/Vol] 59 U/L 45-117 [facility] Serum or plasma calcium honey urement (mass/volume)Ordered By: Nigel Rivera on 06-25-2024 Calcium [Mass/Vol] 9.2 mg/dL 8.5-10.1 [facility] Serum or plasma creatinine m easurement (mass/volume)Ordered By: Nigel Rivera on 06-25-2024 Creatinine [Mass/Vol] 0.87 mg/dL 0.55-1.02 [facility] Comment on above: The validity of the calculated GFR & GFRAA in patients over 70 years has not been determined. Clinical correlation is essential. Serum or plasma urea nitroge n measurement (mass/volume)Ordered By: Nigel Rivera on 06-25-2024 Urea nitrogen [Mass/Vol] 13 mg/dL 7-18 [facility] Sodium levelOrdered By: Nigel Rivera on 06-25-2024 Sodium [Moles/Vol] 140 mmol/L 136-145 [facility] Total proteinOrdered By: Freda Rivera on 06-25-2024 Protein [Mass/Vol] 6.1 g/dL Low 6.4-8.2 [facility] Urinalysis, Completeon 06-25 BACTERIA 3+ /hpf Normal None Seen [facility] Comment on above: Order Comment: CLEAN CATCH Performed By: #### L 400.0001 ####[facility] [address] [place], [address] EPI,SQUAMOUS 50-100 SEEN Normal 5-10 [facility] Comment on above: Order Comment: CLEAN CATCH Performed By: #### L 400.0001 ####[facility] [address] [place], [address] Mucus Ql (Urine sed) 1+ /hpf Normal [facility] Comment on above: Order Comment: CLEAN CATCH Performed By: #### L 400.0001 ####[facility] [address] [place], [address] WBC 50-100 SEEN Normal 0-5 [facility] Comment on above: Order Comment: CLEAN CATCH Performed By: #### L 400.0001 ####[facility] [address] [place], [address] BILIRUBIN URINE Negative Normal Negative [facility] Comment on above: Order Comment: CLEAN CATCH Performed By: #### L 400.0001 ####[facility] [address] [place], [address] Clarity (U) Sl. Cloudy Normal Clear [facility] Comment on above: Order Comment: CLEAN CATCH Performed By: #### L 400.0001 ####[facility] [address] [place], [address] Color (U) Straw Normal Yellow [facility] Comment on above: Order Comment: CLEAN CATCH Performed By: #### L 400.0001 ####[facility] [address] [place], [address] GLUCOSE, UR Normal Normal Normal [facility] Comment on above: Order Comment: CLEAN CATCH Performed By: #### L 400.0001 ####[facility] [address] [place], [address] KETONE UR Negative Normal Negative [facility] Comment on above: Order Comment: CLEAN CATCH Performed By: #### L 400.0001 ####[facility] [address] [place], [address] LEUK ESTERASE 100 /ul Abnormal Negative [facility] Comment on above: Order Comment: CLEAN CATCH Performed By: #### L 400.0001 ####[facility] [address] [place], [address] Nitrite Ql (U) Negative Normal Negative [facility] Comment on above: Order Comment: CLEAN CATCH Performed By: #### L 400.0001 ####[facility] [address] [place], [address] OCCULT BLOOD-UR Negative Normal Negative [facility] Comment on above: Order Comment: CLEAN CATCH Performed By: #### L 400.0001 ####[facility] [address] [place], [address] pH UR 6.0 Normal 5.0 - 8.0 [facility] Comment on above: Order Comment: CLEAN CATCH Performed By: #### L 400.0001 ####[facility] [address] [place], [address] PROT DIPSTX 15 mg/dl Abnormal Negative [facility] Comment on above: Order Comment: CLEAN CATCH Performed By: #### L 400.0001 ####[facility] [address] [place], [address] SP.GR. DIPSTX 1.030 Normal 1.002-1.030 [facility] Comment on above: Order Comment: CLEAN CATCH Performed By: #### L 400.0001 ####[facility] [address] [place], [address] UROBILI 1 mg/dl Abnormal Normal [facility] Comment on above: Order Comment: CLEAN CATCH Performed By: #### L 400.0001 ####[facility] [address] [place], [address] RBC 0 SEEN Normal 0-5 [facility] Comment on above: Order Comment: CLEAN CATCH Performed By: #### L 400.0001 ####[facility] [address] [place], [address] Urine blood detectionOrdered By: Nigel Rivera on 06-25-2024 Urine Occult Blood Negative Negative [facility] Urine clarityOrdered By: Freda Rivera on 06-25-2024 Clarity (U) Sl. Cloudy Clear [facility] Urine color determinationOrd ered By: Nigel Rivera on 06-25-2024 Color (U) Straw Yellow [facility] Urine leukocyte esterase det ection by dipstickOrdered By: Nigel Rivera on 06-25-2024 Leukocyte esterase Test strip Ql (U) 100 /ul High Negative [facility] Urine pHOrdered By: Nigel del valle on 06-25-2024 pH (U) 6.0 [pH] 5.0 - 8.0 [facility] Urine sediment bacteria coun t by microscopy (number/high power field)Ordered By: Nigel Rivera on 06-25-2024 Bacteria LM.HPF (Urine sed) [#/Area] 3 /[HPF] None Seen [facility] Urine specific gravity measu rementOrdered By: Nigel Rivera on 06-25-2024 Specific gravity (U) [Rel density] 1.030 1.002-1.030 [facility] Urobilinogen Ql (U)Ordered B y: Nigel Rivera on 06-25-2024 Urobilinogen (U) [Mass/Vol] 1 mg/dL High Normal [facility] White blood cell (WBC) count Ordered By: Nigel Rivera on 06-25-2024 WBC (Bld) [#/Vol] 12.7 10*3/uL High 4.4-11.0 [facility] White blood cell countOrdere d By: Nigel Rivera on 06-25-2024 Urine WBC 50-100 SEEN /hpf 0-5 [facility] CNPNon [facility]20[facility] OTTONIEL [facility]SMAN ([id number]) 2000 F Date Time Provider Department 05/20/24 JAGDISH METZGER [facility] During your visit today, we recorded the following information about you: Jagdish Metzger APRN.CNP 05/20/2024 7:18 AM Signed Please inform patient that STD panel was negative. Follow-up with ORAL SURGEON or PCP as needed. DONALD Hunt Gillian, OCCA 05/20/2024 9:39 AM Signed TC to patients mobile number and received message unable to complete call. Sent MC message asking patient to call in and discuss results. JAMAL Owusu M Robin, RN 05/20/2024 10:22 AM Signed Pt returned call and given provider's message below with verbalized understanding. Allergies As of Date: 05/20/2024 Noted Allergy Reaction SEASONAL ALLERGIES 10/20/2009 5 - Intolerance Comments: Sneezing, itchy and watery eyes. Date Reviewed: 05/19/2024 Reviewed by: Mary Ann Martinez MA - Fully Assessed Reason for Visit: Results [95] Prescriptions as of 05/20/2024 - phenazopyridine (PYRIDIUM) 200 mg tablet Take 1 tablet by mouth three times a day as needed. - cetirizine (ZYRTEC) 10 mg tablet Take 1 tablet by mouth once daily. - etonogestrel (NEXPLANON) subdermal implant 68 mg 1 Each by SUBDERMAL route as directed. Problem List As Of Date 05/20/2024 Noted Resolved Headache(784.0) [R51] 04/28/2011 04/23/2021 Unspecified asthma [J45.909] Short stature [R62.52] 08/14/2017 Dysmenorrhea [N94.6] 05/31/2013 04/23/2021 Fatigue [R53.83] 05/31/2013 04/23/2021 Depression [F32.A] 10/11/2014 Attention deficit hyperactivity disorder (ADHD)*01/25/2015 Family history of hypertrophic cardiomyopathy [*11/01/2015 Tobacco use during , antepartum [O99.3*07/03/2017 05/04/2018 History of depression [Z86.59] 07/03/2017 04/23/2021 Patient requested diagnostic testing [Z01.89] 07/03/2017 02/20/2018 Pelvic pain in [O26.899, R10.2] 07/03/2017 05/04/2018 Marijuana use [F12.90] 07/14/2017 Chlamydia trachomatis infection during pregnanc*07/16/2017 05/04/2018 Supervision of normal first teen in f*08/14/2017 05/04/2018 Nicotine use disorder [F17.200] 04/23/2021 Supervision of high risk in second tr*05/21/2021 12/03/2021 Chlamydia trachomatis infection in in*05/21/2021 12/03/2021 Encounter Status:Closed by Cecilia GAITAN on 05/20/24 Normal [facility] C. trachomatis+N. gonorrhoea e DNA ANURADHA+probe Ql (Unsp spec)on 05-19-2024 C. trachomatis rRNA ANURADHA+probe Ql (Unsp spec) Not detected Normal Not detected [facility] Comment on above: Order Comment: Speci men Type: BLOOD SPECIMEN Ordering Facility: [facility] Address: [address] [place] [address] Performed By: #### 1 6128-1 #### [facility] CLIA [id number] [address] [place] [address] [place] N. gonorrhoeae rRNA ANURADHA+probe Ql (Unsp spec) Not detected Normal Not detected [facility] Comment on above: Order Comment: Speci men Type: BLOOD SPECIMEN Ordering Facility: [facility] Address: [address] [place] [address] Performed By: #### 1 6128-1 #### [facility] CLIA [id number] [address] [place] [address] [place] TRACEY/TRICHOMONAS NAATon 1 07-20-2023 C. glabrata RNA ANURADHA+probe Ql (Vag fld) Not detected Normal Not detected [facility] Comment on above: Order Comment: Speci men Type: BLOOD SPECIMEN Ordering Facility: [facility] Address: [address] [place] [address] Performed By: #### 1 6128-1 #### [facility] CLIA [id number] [address] [place] [address] [place] Tracey sp DNA ANURADHA+probe Ql (Vag fld) Not detected Normal Not detected [facility] Comment on above: Order Comment: Speci men Type: BLOOD SPECIMEN Ordering Facility: [facility] Address: [address] [place] [address] Result Comment: The Tracey species group target includes C. albicans, C. tropicalis, C. parapsilosis, and C. dubliniensis. Performed By: #### 1 6128-1 #### [facility] CLIA [id number] [address] [place] [address] [place] T. vaginalis DNA ANURADHA+probe Ql (Unsp spec) Not detected Normal Not detected [facility] Comment on above: Order Comment: Speci men Type: BLOOD SPECIMEN Ordering Facility: [facility] Address: [address] [place] [address] Performed By: #### 1 6128-1 #### [facility] CLIA [id number] [address] [place] [address] [id number] [facility] CNOVon 05-19-2024 [facility]OV Office Visit (UCWSTR ) OTTONIEL OSMAN ([id number]) 2000 F Date Time Provider Department 05/19/24 11:00 AM JESSE ARRIAZA [facility] During your visit today, we recorded the following information about you: Temperature Pulse Respiration Blood pressure 98.2 degrees 78/minute 22/minute 102/68 Weight 58.3 kg Jesse Arriaza PA-C 05/19/2024 11:32 AM Signed This note was created using [employer]. Subjective Ottoniel Osman is a 24 year old female. HPI Presents with a chief complaint of wanting STD screening. She has been with her boyfriend for 3 years, he started having some drainage so she would like tested. She herself is not having any vaginal itching, drainage or discharge. She is on the Nexplanon, denies chance of . She denies fever or chills. No urinary symptoms. States she did have chlamydia in September that was treated. Review of Systems Constitutional: Negative. HENT: Negative. Eyes: Negative. Respiratory: Negative. Cardiovascular: Negative. Gastrointestinal: Negative. Genitourinary: Negative. Musculoskeletal: Negative. All other systems reviewed and are negative. PAST MEDICAL HISTORY Diagnosis Date Acute bronchiolitis due to respiratory syncytial virus (RSV) resolved Asthma no asthma attacks in several years Attention deficit hyperactivity disorder (ADHD), combined type 01/25/2015 Chlamydia trachomatis infection in in first trimester 05/21/2021 11/14/21- ALLEN negative. Viky Stubbs, WATCHGUARD.CNM Chlamydia positive again 10/19/21. SW Depression 10/11/2014 Hospitalized 10/03/2014. Dysmenorrhea 05/31/2013 Family history of hypertrophic cardiomyopathy 11/01/2015 Fatigue 05/31/2013 Menarche 11/2011 Age 11 Nexplanon insertion 02/2018 Left arm PTSD (post-traumatic stress disorder) Short stature resolved Unspecified asthma(493.90) Current Outpatient Medications Medication Sig Dispense Refill cetirizine (ZYRTEC) 10 mg tablet Take 1 tablet by mouth once daily. 30 tablet 0 etonogestrel (NEXPLANON) subdermal implant 68 mg 1 Each by SUBDERMAL route as directed. 1 Each 0 phenazopyridine (PYRIDIUM) 200 mg tablet Take 1 tablet by mouth three times a day as needed. (Patient not taking: Reported on 10/04/2023) 12 tablet 0 No current facility-administered medications for this visit. PAST SURGICAL HISTORY Procedure Laterality Date NEXPLANON INSERTION 06/22/2015 removed 04/2017 NEXPLANON INSERTION 02/2018 removed 08/01/2020 NEXPLANON INSERTION Left 01/01/2022 TONSILLECTOMY AND ADENOIDECTOMY FAMILY HISTORY Problem Relation Age of Onset Hypertension Mother Cardiomyopathy Father Crohn's Disease Brother Hypertension Maternal Grandmother Psychiatry Maternal Grandfather anxiety Prostate Cancer Maternal Grandfather Heart Paternal Grandfather of heart attack Social History Tobacco Use Smoking status: Former Current packs/day: 0.25 Average packs/day: 0.3 packs/day for 7.0 years (1.8 ttl pk-yrs) Types: Cigarettes Smokeless tobacco: Never Tobacco comments: 7 cigarettes a day Vaping Use Vaping status: Former Substances: Nicotine, THC Devices: Disposable Substance Use Topics Alcohol use: No Drug use: Yes Types: Marijuana Comment: for depression, anxiety and PTSD Objective BP 102/68 Pulse 78 Temp 36.8 ?C (98.2 ?F) Resp 22 Wt 58.3 kg (128 lb 8.5 oz) LMP 10/02/2023 (Approximate) SpO2 99% BMI 22.41 kg/m? Physical Exam Vitals reviewed. Constitutional: Appearance: Normal appearance. HENT: Head: Normocephalic and atraumatic. Genitourinary: Comments: Exam deferred Skin: General: Skin is warm and dry. Neurological: General: No focal deficit present. Mental Status: She is alert and oriented to person, place, and time. Assessment and Plan ASSESSMENT/PLAN: 1. Screening for STD (sexually transmitted disease) - ICD9: V74.5, ICD10: Z11.3 Will call on results. - GONORRHEA/CHLAMYDIA NAAT - SYPHILIS TREPONEMAL W/REFLEX - HIV 1/2 COMBO WITH REFLEX TO DIFFERENTIATION - HEPATITIS C ANTIBODY IA WITH CONFIRMATION - HEPATITIS B SURFACE ANTIGEN - TRACEY/TRICHOMONAS NAAT JONATHON Durham-C Allergies As of Date: 05/19/2024 Noted Allergy Reaction SEASONAL ALLERGIES 10/20/2009 5 - Intolerance Comments: Sneezing, itchy and watery eyes. Date Reviewed: 05/19/2024 Reviewed by: Mary Ann Martinez MA - Fully Assessed Reason for Visit: STD [102] Cmt: Wants full panel std tests, no symptoms Primary Visit Diagnosis:Screening for STD (sexually transmitted disease) [Z11.3] Order(s):GONORRHEA/CHLA MYDIA NAAT [SQGCCT] Order #: [id number]. #:[id number] SYPHILIS TREPONEMAL W/REFLEX [SQSYPHTX] Order #: [id number] FUTURE HIV 1/2 COMBO WITH REFLEX TO DIFFERENTIATION [SQHIV12] Order #: [id number] FUTURE HEPATITIS C ANTIBODY IA WITH CONFIRMATION [MWVNKR1F] Order #: [id number] FUTURE HEPATITI (more content not included)... Normal [facility] HBV surface Ag Ser Qlon 05-09 HBV surface Ag Ql (S) Negative Normal Negative [facility] Comment on above: Order Comment: Speci men Type: BLOOD SPECIMEN Ordering Facility: [facility] Address: [address] [place] [address] Performed By: #### 1 6128-1 #### [facility] CLIA [id number] [address] [place] [address] [place] [address] [place] HCV Ab Ser Qlon 05-19-2024 HCV Ab Ql (S) Negative Normal Negative [facility] Comment on above: Order Comment: Speci men Type: BLOOD SPECIMEN Ordering Facility: [facility] Address: [address] [place] [address] Result Comment: The result suggests no evidence of active infection with Hepatitis C virus. Should recent infection be suspected, repeat testing may be considered 4-6 weeks after this draw. Performed By: #### 1 6128-1 #### [facility] CLIA [id number] [address] [place] [address] [place] HIV 1+2 Ab IA Qlon 4 HIV 1 and 2 Ab IA.rapid Nom (S/P/Bld) Normal [facility] Comment on above: Order Comment: Speci men Type: BLOOD SPECIMEN Ordering Facility: [facility] Address: [address] [place] [address] Result Comment: Test not indicated. Performed By: #### 1 6128-1 #### [facility] CLIA [id number] [address] [place] [address] [place] HIV 1+2 Ab+HIV1 p24 Ag IA Ql Non-Reactive Normal Nonreactive [facility] Comment on above: Order Comment: Speci men Type: BLOOD SPECIMEN Ordering Facility: [facility] Address: [address] [place] [address] Performed By: #### 1 6128-1 #### [facility] CLIA [id number] [address] [place] [address] [place] HIV immunoassay testing algorithm interpretation (S/P/Bld) [Interp] Normal [facility] Comment on above: Order Comment: Speci men Type: BLOOD SPECIMEN Ordering Facility: [facility] Address: [address] [place] [address] Result Comment: No e vidence of HIV-1 or HIV-2 infection. Should recent infection be suspected, repeat testing may be considered 2-3 weeks after this draw. [place] Rev. Code 3701.243(E): This information has been disclosed to you from confidential records protected from disclosure by state law. ???You shall make no further disclosure of this information without the specific, written, and informed release of the individual to whom it pertains or as otherwise permitted by state law. A general authorization for the release of medical or other information is not sufficient for the purpose of the release of HIV test results or diagnoses. Performed By: #### 1 6128-1 #### [facility] CLIA [id number] [address] [place] [address] [place] Reagin and Treponema pallidu m IgG and IgM [Interp]on 05-19-2024 T. pallidum IgG+IgM IA Ql (S) Non-Reactive Normal Nonreactive [facility] Comment on above: Order Comment: Speci men Type: BLOOD SPECIMEN Ordering Facility: [facility] Address: [address] [place] [address] Performed By: #### 1 6128-1 #### [facility] [place] [id number] [address] [place] [address] [place] Reagin+T pallidum IgG+IgM Se rPl-Impon 05-19-2024 Reagin and Treponema pallidum IgG and IgM [Interp] Cannot exclude recent Treponemal infection if specimen collected within 7-10 days after appearance of suspect lesions or 2-3 weeks after an exposure. Clinical correlation is required. Normal [facility] Comment on above: Order Comment: Speci men Type: BLOOD SPECIMEN Ordering Facility: [facility] Address: [address] [place] [address] Performed By: #### 1 6128-1 #### [facility] CLIA [id number] [address] [place] [address] [place] UA DIP, URINE (POC)on 2023 BILIRUBIN UA (POCT) Negative Negative [facility] CLARITY UA (POCT) Clear [facility] COLOR UA (POCT) [place] [facility] GLUCOSE UA (POCT) 100 mg/dL Abnormal Negative [facility] Hemoglobin Ql (U) Trace-intact Abnormal Negative [facility] Interpretation and review of laboratory results Abnormal [facility] KETONE UA (POCT) Trace Negative mg/dL [facility] LEUKOCYTES UA (POCT) Large Abnormal Negative [facility] NITRITE UA (POCT) Positive Abnormal Negative [facility] PH UA (POCT) 6.5 4.5 - 8.0 [facility] Protein Ql (U) 30 mg/dL Abnormal Negative [facility] SPECIFIC GRAVITY UA (POCT) 1.010 1.005 - 1.030 [facility] UROBILINOGEN UA (POCT) 2.0 Abnormal Normal E.U./d L [facility] Location:[facility], [address] [place] [address], [place], [place], [id number] [place] [address] [facility] Absolute lymphocyte countOrd ered By: Horace Frausto on 10-15-2023 Lymphocytes Auto (Unsp spec) [#/Vol] 1.89 10*3/uL 0.83-4.51 [facility] Automated lymphocyte count a s percentage of total leukocytesOrdered By: Horace Frausto on 10-15-2023 Lymphocytes/100 WBC Auto (Unsp spec) 12.7 % 19-41 [facility] Basophil percentageOrdered B y: Horace Frausto on 10-15-2023 Basophil percentage 0 SEEN /hpf 0-5 [facility] Basophils/100 WBC (Bld) 0.4 % 0-1 [facility] Bilirubin [Mass/Vol] 0.50 mg/dL 0.20-1.00 [facility] Comment on above: For patients on eltr ombopag therapy, use of Dimension [place] TBIL is not recommended. Chloride [Moles/Vol] 110 mmol/L 98-107 [facility] Eosinophils/100 WBC (Bld) 2.0 % 0-5 [facility] Glucose [Mass/Vol] 116 mg/dL 74-106 [facility] Comment on above: Fasting Glucose resu lt from 100 to 125 mg/dL suggests IMPAIRED HOMEOSTASIS per A.D.A. criteria. Hemoglobin (Bld) [Mass/Vol] 13.9 g/dL 12.0-15.0 [facility] Monocytes/100 WBC (Bld) 3.5 % 0-10 [facility] Neutrophils (Bld) [#/Vol] 12.0 10*3/uL 2.0-7.7 [facility] Neutrophils/100 WBC (Bld) 81.0 % 47-70 [facility] Potassium [Moles/Vol] 3.7 mmol/L 3.5-5.1 [facility] Protein [Mass/Vol] 7.4 g/dL 6.4-8.2 [facility] Sodium [Moles/Vol] 139 mmol/L 136-145 [facility] WBC (Bld) [#/Vol] 14.9 10*3/uL 4.4-11.0 [facility] Bilirubin Test strip Ql (U)O rdered By: Horace Frausto on 10-15-2023 Bilirubin Ql (U) Negative Negative [facility] Determination of erythrocyte mean corpuscular volume (MCV)Ordered By: Horace Frausto on 10-15-2023 MCV (RBC) [Entitic vol] 88.7 fL 81-99 [facility] Erythrocyte distribution wid th ratioOrdered By: Horace Frausto on 10-15-2023 Erythrocyte distribution width (RBC) [Ratio] 12.4 % 11.6-14.6 [facility] Erythrocyte distribution wid th standard deviationOrdered By: Horace Frausto on 10-15-2023 Erythrocyte distribution width (RBC) [Entitic vol] 40.9 fL 35.1-43.9 [facility] Hematocrit Auto (Bld) [Volum e fraction]Ordered By: Horace rFausto on 10-15-2023 Hematocrit (Bld) [Volume fraction] 42.5 % 37-47 [facility] Immature granulocytes/100 WB C Auto (Bld)Ordered By: Horace Frausto on 10-15-2023 Immature granulocytes/100 WBC (Bld) 0.400 % 0.0-0.9 [facility] Comment on above: IG% - Immature Granu locytes (promyelocytes, myelocytes and metamyelocytes) > 1% indicates that a LEFT SHIFT is Present. Ketones Test strip Ql (U)Ord ered By: Horace Frausto on 10-15-2023 Ketones Ql (U) Negative Negative [facility] Laboratory - Chemistry and C hemistry - challengeOrdered By: oHrace Frausto on 10-15-2023 Albumin/Globulin [Mass ratio] 1.2 {ratio} 0.9-2.4 [facility] ALP [Catalytic activity/Vol] 70 U/L 45-117 [facility] ALT [Catalytic activity/Vol] 17 U/L 13-56 [facility] CO2 [Moles/Vol] 24.0 mmol/L 21.0-32.0 [facility] Globulin (S) [Mass/Vol] 3.3 g/dL 2.2-4.2 [facility] Urea nitrogen/Creatinine [Mass ratio] 11.7 mg/mg 10-20 [facility] - Hematology and Cell countsOrdered By: Horace Frausto on 10-15-2023 MCH (RBC) [Entitic mass] 29.0 pg 27.0-32.0 [facility] MCHC (RBC) [Mass/Vol] 32.7 g/dL 32-36 [facility] Nucleated RBC/100 WBC (Bld) [Ratio] 0 % 0-5 [facility] Platelet mean volume (Bld) [Entitic vol] 11.5 fL 6.2-12.0 [facility] Platelets (Bld) [#/Vol] 202 10*3/uL 150-450 [facility] Mucus LM Ql (Urine sed)Order ed By: Horace Frausto on 10-15-2023 Mucus Ql (Urine sed) 0 SEEN /hpf [facility] Nitrite Test strip Ql (U)Ord ered By: Horace Frausto on 10-15-2023 Nitrite Ql (U) Negative Negative [facility] No Panel InformationOrdered By: Horace Frausto on 10-15-2023 Urine RBC 0 SEEN /hpf 0-5 [facility] Estimated Creatinine Clearance Calc 79.69 ml/min [facility] Estimated GFR (MDRD) Amer 94 mL/min >60 [facility] Comment on above: GFR Calc Estimated GFR (MDRD) Non-Af Amer 78 mL/min >60 [facility] Comment on above: Non- GFR Calc Protein Test strip Ql (U)Ord ered By: Horace Frausto on 10-15-2023 Protein Ql (U) 30 mg/dl Negative [facility] RBC Auto (Bld) [#/Vol]Ordere d By: Horace Frausto on 10-15-2023 RBC (Bld) [#/Vol] 4.79 10*6/uL 4.2-5.4 [facility] Serum or plasma calcium honey urement (mass/volume)Ordered By: Horace Frausto on 10-15-2023 Calcium [Mass/Vol] 9.6 mg/dL 8.5-10.1 [facility] Serum or plasma choriogonado tropin detectionOrdered By: Horace Frausto on 10-15-2023 HCG ( test) Ql Negative [facility] Serum or plasma creatinine m easurement (mass/volume)Ordered By: Horace Frausto on 10-15-2023 Creatinine [Mass/Vol] 0.94 mg/dL 0.55-1.02 [facility] Comment on above: The validity of the calculated GFR & GFRAA in patients over 70 years has not been determined. Clinical correlation is essential. Serum or plasma urea nitroge n measurement (mass/volume)Ordered By: Horace Frausto on 10-15-2023 Urea nitrogen [Mass/Vol] 11 mg/dL 7-18 [facility] Squamous epithelial cells de tection in urine sediment by light microscopyOrdered By: Horace Frausto on 10-15-2023 Epithelial cells.squamous LM Ql (Urine sed) 0-5 SEEN /hpf 5-10 [facility] Thin prep Papanicolaou smear with manual screeningOrdered By: Horace Frausto on 10-15-2023 Thin prep Papanicolaou smear with manual screening 4.1 g/dL 3.2-5.0 [facility] Thin prep Papanicolaou smear with manual screening 11 U/L 15-37 [facility] Thin prep Papanicolaou smear with manual screening 5 5-15 [facility] Urine blood detectionOrdered By: Horace Frausto on 10-15-2023 RBC Ql (U) Negative Negative [facility] Urine clarityOrdered By: Rocky Frausto on 10-15-2023 Clarity (U) Sl. Cloudy Clear [facility] Urine color determinationOrd ered By: Horace Frausto on 10-15-2023 Color (U) Yellow Yellow [facility] Urine glucose detectionOrder ed By: Horace Frausto on 10-15-2023 Glucose Ql (U) Normal mg/dl Normal [facility] Urine leukocyte esterase det ection by dipstickOrdered By: Horace Frausto on 10-15-2023 Leukocyte esterase Test strip Ql (U) Negative Negative [facility] Urine pHOrdered By: Horace chen on 10-15-2023 pH (U) 6.5 [pH] 5.0 - 8.0 [facility] Urine sediment bacteria coun t by microscopy (number/high power field)Ordered By: Horace Frausto on 10-15-2023 Bacteria LM.HPF (Urine sed) [#/Area] 0 /[HPF] None Seen [facility] Urine specific gravity measu rementOrdered By: Horace Frausto on 10-15-2023 Specific gravity (U) [Rel density] 1.010 1.002-1.030 [facility] Urine urobilinogen measureme ntOrdered By: Horace Frausto on 10-15-2023 Urobilinogen Ql (U) Normal mg/dl Normal [facility] UA DIP, URINE (POC)on 2023 BILIRUBIN UA (POCT) Negative Negative [facility] CLARITY UA (POCT) Clear [facility] COLOR UA (POCT) Yellow [facility] GLUCOSE UA (POCT) Negative Negative mg/dL [facility] Hemoglobin Ql (U) Trace-intact Abnormal Negative [facility] Interpretation and review of laboratory results Abnormal [facility] KETONE UA (POCT) Negative Negative mg/dL [facility] LEUKOCYTES UA (POCT) Trace Abnormal Negative [facility] NITRITE UA (POCT) Positive Abnormal Negative [facility] PH UA (POCT) 6.0 4.5 - 8.0 [facility] Protein Ql (U) Trace Abnormal Negative mg/dL [facility] SPECIFIC GRAVITY UA (POCT) 1.020 1.005 - 1.030 [facility] UROBILINOGEN UA (POCT) 1.0 Normal E[facility]d L [facility] Location:[facility], [address] [place] [address], [place], [place], [id number] [place] [address] [facility] Absolute lymphocyte countOrd ered By: Ever Hanks on 06-27-2023 Lymphocytes Auto (Unsp spec) [#/Vol] 3.46 10*3/uL 0.83-4.51 [facility] Automated lymphocyte count a s percentage of total leukocytesOrdered By: Ever Hakns on 06-27-2023 Lymphocytes/100 WBC Auto (Unsp spec) 38.9 % 19-41 [facility] Basophil percentageOrdered B y: Ever Hanks on 06-27-2023 Basophils/100 WBC (Bld) 0.9 % 0-1 [facility] Bilirubin [Mass/Vol] 0.20 mg/dL 0.20-1.00 [facility] Comment on above: For patients on eltr ombopag therapy, use of Dimension [place] TBIL is not recommended. Chloride [Moles/Vol] 113 mmol/L 98-107 [facility] Eosinophils/100 WBC (Bld) 8.8 % 0-5 [facility] Glucose [Mass/Vol] 87 mg/dL 74-106 [facility] Hemoglobin (Bld) [Mass/Vol] 12.7 g/dL 12.0-15.0 [facility] Monocytes/100 WBC (Bld) 6.7 % 0-10 [facility] Neutrophils (Bld) [#/Vol] 4.0 10*3/uL 2.0-7.7 [facility] Neutrophils/100 WBC (Bld) 44.4 % 47-70 [facility] Potassium [Moles/Vol] 4.1 mmol/L 3.5-5.1 [facility] Protein [Mass/Vol] 6.5 g/dL 6.4-8.2 [facility] Sodium [Moles/Vol] 142 mmol/L 136-145 [facility] WBC (Bld) [#/Vol] 8.9 10*3/uL 4.4-11.0 [facility] Basophil percentage 0-5 SEEN /hpf 0-5 [facility] Bilirubin Test strip Ql (U)O rdered By: Ever Hanks on 06-27-2023 Bilirubin Ql (U) 1 mg/dL Negative [facility] Comment on above: COLOR OF URINE MAY A FFECT DIPSTICK RESULTS. Determination of erythrocyte mean corpuscular volume (MCV)Ordered By: Ever Hanks on 06-27-2023 MCV (RBC) [Entitic vol] 88.9 fL 81-99 [facility] Erythrocyte distribution wid th ratioOrdered By: Ever Hanks on 06-27-2023 Erythrocyte distribution width (RBC) [Ratio] 12.2 % 11.6-14.6 [facility] Erythrocyte distribution wid th standard deviationOrdered By: Ever Hanks on 06-27-2023 Erythrocyte distribution width (RBC) [Entitic vol] 39.9 fL 35.1-43.9 [facility] Hematocrit Auto (Bld) [Volum e fraction]Ordered By: Ever Hanks on 06-27-2023 Hematocrit (Bld) [Volume fraction] 38.5 % 37-47 [facility] Immature granulocytes/100 WB C Auto (Bld)Ordered By: Ever Hanks on 06-27-2023 Immature granulocytes/100 WBC (Bld) 0.300 % 0.0-0.9 [facility] Comment on above: IG% - Immature Granu locytes (promyelocytes, myelocytes and metamyelocytes) > 1% indicates that a LEFT SHIFT is Present. Ketones Test strip Ql (U)Ord ered By: Ever Hanks on 06-27-2023 Ketones Ql (U) 5 mg/dl Negative [facility] Laboratory - Chemistry and C hemistry - challengeOrdered By: Ever Hanks on 06-27-2023 Albumin/Globulin [Mass ratio] 1.2 {ratio} 0.9-2.4 [facility] ALP [Catalytic activity/Vol] 62 U/L 45-117 [facility] ALT [Catalytic activity/Vol] 15 U/L 13-56 [facility] CO2 [Moles/Vol] 26.0 mmol/L 21.0-32.0 [facility] Globulin (S) [Mass/Vol] 2.9 g/dL 2.2-4.2 [facility] Lipase [Catalytic activity/Vol] 28 U/L 13-75 [facility] Comment on above: Please note:LIPASE r evised reference range effective 22. New Lipase methodology. Expected to produce lower values than the previous assay method. NEW Reference Range: 13 - 75 U/L Urea nitrogen/Creatinine [Mass ratio] 9.2 mg/mg 10-20 [facility] - Hematology and Cell countsOrdered By: Ever Hanks on 06-27-2023 MCH (RBC) [Entitic mass] 29.3 pg 27.0-32.0 [facility] MCHC (RBC) [Mass/Vol] 33.0 g/dL 32-36 [facility] Nucleated RBC/100 WBC (Bld) [Ratio] 0 % 0-5 [facility] Platelets (Bld) [#/Vol] 188 10*3/uL 150-450 [facility] Mucus LM Ql (Urine sed)Order ed By: Ever Hanks on 06-27-2023 Mucus Ql (Urine sed) 0 SEEN /hpf [facility] Nitrite Test strip Ql (U)Ord ered By: Ever Hanks on 06-27-2023 Nitrite Ql (U) Negative Negative [facility] No Panel InformationOrdered By: Ever Hanks on 06-27-2023 Estimated Creatinine Clearance Calc 76.44 ml/min [facility] Estimated GFR (MDRD) Amer 89 mL/min >60 [facility] Comment on above: GFR Calc Estimated GFR (MDRD) Non-Af Amer 74 mL/min >60 [facility] Comment on above: Non- GFR Calc Urine RBC 0 SEEN /hpf 0-5 [facility] Platelet mean volume Rob-Ec ker (Bld) [Entitic vol]Ordered By: Ever Hanks on 06-27-2023 Platelet mean volume (Bld) [Entitic vol] 11.6 fL 6.2-12.0 [facility] Protein Test strip Ql (U)Ord ered By: Ever Hanks on 06-27-2023 Protein Ql (U) 30 mg/dl Negative [facility] RBC Auto (Bld) [#/Vol]Ordere d By: Ever Hanks on 06-27-2023 RBC (Bld) [#/Vol] 4.33 10*6/uL 4.2-5.4 [facility] Serum or plasma calcium honey urement (mass/volume)Ordered By: Ever Hanks on 06-27-2023 Calcium [Mass/Vol] 8.8 mg/dL 8.5-10.1 [facility] Serum or plasma choriogonado tropin detectionOrdered By: Ever Hanks on 06-27-2023 HCG ( test) Ql Negative [facility] Serum or plasma creatinine m easurement (mass/volume)Ordered By: Ever Hanks on 06-27-2023 Creatinine [Mass/Vol] 0.98 mg/dL 0.55-1.02 [facility] Comment on above: The validity of the calculated GFR & GFRAA in patients over 70 years has not been determined. Clinical correlation is essential. Serum or plasma urea nitroge n measurement (mass/volume)Ordered By: Ever Hanks on 06-27-2023 Urea nitrogen [Mass/Vol] 9 mg/dL 7-18 [facility] Squamous epithelial cells de tection in urine sediment by light microscopyOrdered By: Ever Hanks on 06-27-2023 Epithelial cells.squamous LM Ql (Urine sed) 5-10 SEEN /hpf 5-10 [facility] Thin prep Papanicolaou smear with manual screeningOrdered By: Ever Hanks on 06-27-2023 Thin prep Papanicolaou smear with manual screening 3.6 g/dL 3.2-5.0 [facility] Thin prep Papanicolaou smear with manual screening 8 U/L 15-37 [facility] Thin prep Papanicolaou smear with manual screening 3 5-15 [facility] Urine blood detectionOrdered By: Ever Hanks on 06-27-2023 RBC Ql (U) 10 /ul Negative [facility] Urine clarityOrdered By: Raúl Hanks on 06-27-2023 Clarity (U) Clear Clear [facility] Urine color determinationOrd ered By: Ever Hanks on 06-27-2023 Color (U) Yellow Yellow [facility] Urine glucose detectionOrder ed By: Ever Hanks on 06-27-2023 Glucose Ql (U) Normal mg/dl Normal [facility] Urine leukocyte esterase det ection by dipstickOrdered By: Ever Hanks on 06-27-2023 Leukocyte esterase Test strip Ql (U) 25 /ul Negative [facility] Urine pHOrdered By: Ever woodson on 06-27-2023 pH (U) 6.0 [pH] 5.0 - 8.0 [facility] Urine sediment bacteria coun t by microscopy (number/high power field)Ordered By: Ever Hanks on 06-27-2023 Bacteria LM.HPF (Urine sed) [#/Area] 0 /[HPF] None Seen [facility] Urine specific gravity measu rementOrdered By: Ever Hanks on 06-27-2023 Specific gravity (U) [Rel density] 1.020 1.002-1.030 [facility] Urine urobilinogen measureme ntOrdered By: Ever Hanks on 06-27-2023 Urobilinogen Ql (U) 4 mg/dl Normal [facility] UA DIP, URINE (POC)on 2022 BILIRUBIN UA (POCT) Negative Negative [facility] CLARITY UA (POCT) Clear [facility] COLOR UA (POCT) Yellow [facility] GLUCOSE UA (POCT) Negative Negative mg/dL [facility] Hemoglobin Ql (U) Negative Negative [facility] KETONE UA (POCT) Negative Negative mg/dL [facility] LEUKOCYTES UA (POCT) Trace Abnormal Negative [facility] NITRITE UA (POCT) Negative Negative [facility] PH UA (POCT) 6.5 4.5 - 8.0 [facility] Protein Ql (U) Negative Negative mg/dL [facility] SPECIFIC GRAVITY UA (POCT) >=1.030 1.005 - 1.030 [facility] UROBILINOGEN UA (POCT) 0.2 E.U./dL Normal E.U./ dL [facility] XR RIBS/CHEST 3V AP RIB/OBLS /CXR RIGHTon 03-03-2023 [facility] XR Ribs - right Views and Ch est PAon 03-03-2023 IMPRESSION: Possible nondisplaced fracture of the lateral right seventh rib. No pneumothorax. Bladder Blower: ALEISHA Transcribe Date/Time: Mar 03 2023 4:41P Dictated by : MARGARET SNYDER MD This examination was interpreted and the report reviewed and electronically signed by: MARGARET SNYDER MD on Mar 03 2023 4:44PM [facility] DIVISION OF RADIOLOGY * * *Final Report* * * DATE OF EXAM: Mar 03 2023 4:40PM WOX [id number] - XR RIB/CHST 3V AP RIB/OBL/CHST R / PROCEDURE REASON: Rib pain on right side * * * * Physician Interpretation * * * * EXAMINATION: X-ray chest and right ribs Clinical History: Rib pain on right side M: XC1_4 Comparison: None RESULT: Lines, tubes, and devices: None. Lungs and pleura: No consolidation. No lung mass. No pleural effusion. Cardiomediastinal silhouette: Normal cardiomediastinal silhouette. Musculoskeletal: Possible nondisplaced fracture of the lateral right seventh rib DIVISION OF RADIOLOGY Provider, Tavia santa Cromwell - 03/03/2023 * * *Final Report* * * DATE OF EXAM: Mar 03 2023 4:40PM WOX [id number] - XR RIB/CHST 3V AP RIB/OBL/CHST R / PROCEDURE REASON: Rib pain on right side * * * * Physician Interpretation * * * * EXAMINATION: X-ray chest and right ribs Clinical History: Rib pain on right side M: XC1_4 Comparison: None RESULT: Lines, tubes, and devices: None. Lungs and pleura: No consolidation. No lung mass. No pleural effusion. Cardiomediastinal silhouette: Normal cardiomediastinal silhouette. Musculoskeletal: Possible nondisplaced fracture of the lateral right seventh rib IMPRESSION IMPRESSION: Possible nondisplaced fracture of the lateral right seventh rib. No pneumothorax. Bladder Blower: PSCB Transcribe Date/Time: Mar 03 2023 4:41P Dictated by : MARGARET SNYDER MD This examination was interpreted and the report reviewed and electronically signed by: MARGARET SNYDER MD on Mar 03 2023 4:44PM EST [facility] Radiology Study observation (narrative) [facility] XR Ribs - right Views and Ch est PAOrdered By: [facility] Provider on 03-03-2023 [facility] Absolute lymphocyte countOrd ered By: Kirby Camraa on 02-09-2023 Lymphocytes Auto (Unsp spec) [#/Vol] 2.33 10*3/uL 0.83-4.51 [facility] Basophil percentageOrdered B y: Kirby Camara on 02-09-2023 Basophil percentage 0-5 SEEN /hpf 0-5 [facility] Basophils/100 WBC (Bld) 0.5 % 0-1 [facility] Bilirubin [Mass/Vol] 0.70 mg/dL 0.20-1.00 [facility] Comment on above: For patients on eltr ombopag therapy, use of Dimension [place] TBIL is not recommended. Chloride [Moles/Vol] 110 mmol/L 98-107 [facility] Eosinophils/100 WBC (Bld) 6.8 % 0-5 [facility] Glucose [Mass/Vol] 91 mg/dL 74-106 [facility] Neutrophils (Bld) [#/Vol] 6.4 10*3/uL 2.0-7.7 [facility] Neutrophils/100 WBC (Bld) 63.5 % 47-70 [facility] Potassium [Moles/Vol] 3.8 mmol/L 3.5-5.1 [facility] Protein [Mass/Vol] 7.0 g/dL 6.4-8.2 [facility] Sodium [Moles/Vol] 140 mmol/L 136-145 [facility] WBC (Bld) [#/Vol] 10.1 10*3/uL 4.4-11.0 [facility] Beta hCG serum qualOrdered B y: Kirby Camara on 02-09-2023 Beta HCG ( test) Ql Negative [facility] Bilirubin Test strip Ql (U)O rdered By: Kirby Camara on 02-09-2023 Bilirubin Ql (U) 1 mg/dL Negative [facility] Comment on above: COLOR OF URINE MAY A FFECT DIPSTICK RESULTS. Blood erythrocytes count (nu mber/volume)Ordered By: Kirby Camara on 02-09-2023 RBC (Bld) [#/Vol] 4.94 10*6/uL 4.2-5.4 [facility] Blood hemoglobin measurement (mass/volume)Ordered By: Kirby Camara on 02-09-2023 Hemoglobin (Bld) [Mass/Vol] 14.6 g/dL 12.0-15.0 [facility] Blood lymphocytes/100 leukoc ytesOrdered By: Kirby Camara on 02-09-2023 Lymphocytes/100 WBC (Bld) 23.0 % 19-41 [facility] Blood monocytes/100 leukocyt esOrdered By: Kirby Camara on 02-09-2023 Monocytes/100 WBC (Bld) 5.8 % 0-10 [facility] Blood platelet mean volumeOr dered By: Kirby Camara on 02-09-2023 Platelet mean volume (Bld) [Entitic vol] 11.1 fL 6.2-12.0 [facility] Determination of erythrocyte mean corpuscular volume (MCV)Ordered By: Kirby Camara on 02-09-2023 MCV (RBC) [Entitic vol] 88.5 fL 81-99 [facility] Direct bilirubinOrdered By: Kirby Camara on 02-09-2023 Bilirubin.direct [Mass/Vol] 0.18 mg/dL 0.00-0.30 [facility] Hematocrit Auto (Bld) [Volum e fraction]Ordered By: Kirby Camara on 02-09-2023 Hematocrit (Bld) [Volume fraction] 43.7 % 37-47 [facility] Ketones Test strip Ql (U)Ord ered By: Kirby Camara on 02-09-2023 Ketones Ql (U) 5 mg/dl Negative [facility] Laboratory - Chemistry and C hemistry - challengeOrdered By: Kirby Camara on 02-09-2023 ALP [Catalytic activity/Vol] 70 U/L 45-117 [facility] ALT [Catalytic activity/Vol] 16 U/L 13-56 [facility] CO2 [Moles/Vol] 26.0 mmol/L 21.0-32.0 [facility] Globulin (S) [Mass/Vol] 3.1 g/dL 2.2-4.2 [facility] Lipase [Catalytic activity/Vol] 66 U/L 13-75 [facility] Comment on above: Please note:LIPASE r evised reference range effective 22. New Lipase methodology. Expected to produce lower values than the previous assay method. NEW Reference Range: 13 - 75 U/L Urea nitrogen/Creatinine [Mass ratio] 12.3 mg/mg 10-20 [facility] Laboratory - Hematology and Cell countsOrdered By: Kirby Camara on 02-09-2023 Erythrocyte distribution width (RBC) [Entitic vol] 40.5 fL 35.1-43.9 [facility] Erythrocyte distribution width (RBC) [Ratio] 12.5 % 11.6-14.6 [facility] Immature granulocytes/100 WBC (Bld) 0.400 % 0.0-0.9 [facility] Comment on above: IG% - Immature Granu locytes (promyelocytes, myelocytes and metamyelocytes) > 1% indicates that a LEFT SHIFT is Present. MCH (RBC) [Entitic mass] 29.6 pg 27.0-32.0 [facility] Nucleated RBC/100 WBC (Bld) [Ratio] 0 % 0-5 [facility] MCHC Auto (RBC) [Mass/Vol]Or dered By: Kirby Camara on 02-09-2023 MCHC (RBC) [Mass/Vol] 33.4 g/dL 32-36 [facility] Mucus LM Ql (Urine sed)Order ed By: Kirby Camara on 02-09-2023 Mucus Ql (Urine sed) 0 SEEN /hpf [facility] Nitrite Test strip Ql (U)Ord ered By: Kirby Camara on 02-09-2023 Nitrite Ql (U) Negative Negative [facility] No Panel InformationOrdered By: Kirby Camara on 02-09-2023 Estimated Creatinine Clearance Calc 77.10 ml/min [facility] Estimated GFR (MDRD) Amer 90 mL/min >60 [facility] Comment on above: GFR Calc Estimated GFR (MDRD) Non-Af Amer 74 mL/min >60 [facility] Comment on above: Non- GFR Calc Platelets bldOrdered By: Red Camara on 02-09-2023 Platelets (Bld) [#/Vol] 186 10*3/uL 150-450 [facility] Protein Test strip Ql (U)Ord ered By: Kirby Camara on 02-09-2023 Protein Ql (U) 30 mg/dl Negative [facility] Serum or plasma albumin honey urement (mass/volume)Ordered By: Kirby Camara on 02-09-2023 Albumin [Mass/Vol] 3.9 g/dL 3.2-5.0 [facility] Serum or plasma calcium honey urement (mass/volume)Ordered By: Kirby Camara on 02-09-2023 Calcium [Mass/Vol] 9.1 mg/dL 8.5-10.1 [facility] Serum or plasma creatinine m easurement (mass/volume)Ordered By: Kirby Camara on 02-09-2023 Creatinine [Mass/Vol] 0.98 mg/dL 0.55-1.02 [facility] Comment on above: The validity of the calculated GFR & GFRAA in patients over 70 years has not been determined. Clinical correlation is essential. Serum or plasma urea nitroge n measurement (mass/volume)Ordered By: Kirby Camara on 02-09-2023 Urea nitrogen [Mass/Vol] 12 mg/dL 7-18 [facility] Squamous epithelial cells de tection in urine sediment by light microscopyOrdered By: Kirby Camara on 02-09-2023 Epithelial cells.squamous LM Ql (Urine sed) 0-5 SEEN /hpf 5-10 [facility] Thin prep Papanicolaou smear with manual screeningOrdered By: Kirby Camara on 02-09-2023 Thin prep Papanicolaou smear with manual screening 9 U/L 15-37 [facility] Thin prep Papanicolaou smear with manual screening 4 5-15 [facility] Urine blood detectionOrdered By: Kirby Camara on 02-09-2023 RBC Ql (U) Negative Negative [facility] RBC Ql (U) 0 SEEN /hpf 0-5 [facility] Urine clarityOrdered By: Red Camara on 02-09-2023 Clarity (U) Clear Clear [facility] Urine color determinationOrd ered By: Kirby Camara on 02-09-2023 Color (U) Yellow Yellow [facility] Urine glucose detectionOrder ed By: Kirby Camara on 02-09-2023 Glucose Ql (U) Normal mg/dl Normal [facility] Urine leukocyte esterase det ection by dipstickOrdered By: Kirby Camara on 02-09-2023 Leukocyte esterase Test strip Ql (U) 25 /ul Negative [facility] Urine pHOrdered By: Kirby michael on 02-09-2023 pH (U) 6.0 [pH] 5.0 - 8.0 [facility] Urine sediment bacteria coun t by microscopy (number/high power field)Ordered By: Kirby Camara on 02-09-2023 Bacteria LM.HPF (Urine sed) [#/Area] 0 /[HPF] None Seen [facility] Urine specific gravity measu rementOrdered By: Kirby Camara on 02-09-2023 Specific gravity (U) [Rel density] 1.020 1.002-1.030 [facility] Urobilinogen Auto test strip Ql (U)Ordered By: Kirby Camara on 02-09-2023 Urobilinogen Ql (U) Normal mg/dl Normal [facility] BACTERIAL VAGINOSIS NAATon 0 01-16-2023 Lactobacillus crispatus+gasseri+estephanie enii + Gardnerella vaginalis + Atopobium vaginae rRNA ANURADHA+probe Ql (Vag fld) Negative Negative for bacterial vaginosis [facility] TRACEY/TRICHOMONAS NAATon 0 01-16-2023 C. glabrata RNA ANURADHA+probe Ql (Vag fld) Negative Negative for Tracey glabrata [facility] Tracey sp DNA ANURADHA+probe Ql (Vag fld) Negative Negative for Tracey species [facility] T. vaginalis DNA ANURADHA+probe Ql (Unsp spec) Negative Negative for Trichomonas vaginalis by amplification [facility] UA DIP, URINE (POC)on 2022 BILIRUBIN UA (POCT) Small Abnormal Negative [facility] CLARITY UA (POCT) [facility] COLOR UA (POCT) Dark yellow [facility] GLUCOSE UA (POCT) Negative Negative mg/dL [facility] HEMOGLOBIN/BLOOD UA (POCT) Negative Negative [facility] KETONE UA (POCT) Trace Negative mg/dL [facility] LEUKOCYTES UA (POCT) Trace Abnormal Negative [facility] NITRITE UA (POCT) Negative Negative [facility] PH UA (POCT) 6.0 4.5 - 8.0 [facility] Protein Ql (U) 30 mg/dL Abnormal Negative mg/dL [facility] SPECIFIC GRAVITY UA (POCT) 1.025 1.005 - 1.030 [facility] UROBILINOGEN UA (POCT) 1.0 E.U./dL Normal E.U./ dL [facility] Absolute lymphocyte countOrd ered By: Dr. Sesay on 10-15-2022 Lymphocytes Auto (Unsp spec) [#/Vol] 2.03 10*3/uL 0.83-4.51 [facility] Basophil percentageOrdered B y: Dr. Sesay on 10-15-2022 Basophils/100 WBC (Bld) 0.4 % 0-1 [facility] Chloride [Moles/Vol] 110 mmol/L 98-107 [facility] Eosinophils/100 WBC (Bld) 2.5 % 0-5 [facility] Glucose [Mass/Vol] 70 mg/dL 74-106 [facility] Neutrophils (Bld) [#/Vol] 5.5 10*3/uL 2.0-7.7 [facility] Neutrophils/100 WBC (Bld) 64.6 % 47-70 [facility] Potassium [Moles/Vol] 3.6 mmol/L 3.5-5.1 [facility] Sodium [Moles/Vol] 138 mmol/L 136-145 [facility] WBC (Bld) [#/Vol] 8.5 10*3/uL 4.4-11.0 [facility] Blood erythrocytes count (nu mber/volume)Ordered By: Dr. Sesay on 10-15-2022 RBC (Bld) [#/Vol] 3.78 10*6/uL 4.2-5.4 [facility] Blood hemoglobin measurement (mass/volume)Ordered By: Dr. Sesay on 10-15-2022 Hemoglobin (Bld) [Mass/Vol] 11.1 g/dL 12.0-15.0 [facility] Blood lymphocytes/100 leukoc ytesOrdered By: Dr. Sesay on 10-15-2022 Lymphocytes/100 WBC (Bld) 23.8 % 19-41 [facility] Blood monocytes/100 leukocyt esOrdered By: Dr. Sesay on 10-15-2022 Monocytes/100 WBC (Bld) 8.5 % 0-10 [facility] Blood platelet mean volumeOr dered By: Dr. Sesay on 10-15-2022 Platelet mean volume (Bld) [Entitic vol] 11.7 fL 6.2-12.0 [facility] Determination of erythrocyte mean corpuscular volume (MCV)Ordered By: Dr. Sesay on 10-15-2022 MCV (RBC) [Entitic vol] 89.2 fL 81-99 [facility] Hematocrit Auto (Bld) [Volum e fraction]Ordered By: Dr. Sesay on 10-15-2022 Hematocrit (Bld) [Volume fraction] 33.7 % 37-47 [facility] Laboratory - Chemistry and C hemistry - challengeOrdered By: Dr. Sesay on 10-15-2022 CO2 [Moles/Vol] 19.0 mmol/L 21.0-32.0 [facility] Urea nitrogen/Creatinine [Mass ratio] 9.1 mg/mg 10-20 [facility] Laboratory - Hematology and Cell countsOrdered By: Dr. Sesay on 10-15-2022 Erythrocyte distribution width (RBC) [Entitic vol] 40.7 fL 35.1-43.9 [facility] Erythrocyte distribution width (RBC) [Ratio] 12.3 % 11.6-14.6 [facility] Immature granulocytes/100 WBC (Bld) 0.200 % 0.0-0.9 [facility] Comment on above: IG% - Immature Granu locytes (promyelocytes, myelocytes and metamyelocytes) > 1% indicates that a LEFT SHIFT is Present. MCH (RBC) [Entitic mass] 29.4 pg 27.0-32.0 [facility] Nucleated RBC/100 WBC (Bld) [Ratio] 0 % 0-5 [facility] MCHC Auto (RBC) [Mass/Vol]Or dered By: Dr. Sesay on 10-15-2022 MCHC (RBC) [Mass/Vol] 32.9 g/dL 32-36 [facility] No Panel InformationOrdered By: Dr. Sesay on 10-15-2022 Estimated Creatinine Clearance Calc 114.48 ml/min [facility] Estimated GFR (MDRD) Amer 143 mL/min >60 [facility] Comment on above: GFR Calc Estimated GFR (MDRD) Non-Af Amer 118 mL/min >60 [facility] Comment on above: Non- GFR Calc Platelets bldOrdered By: Dr. Sesay on 10-15-2022 Platelets (Bld) [#/Vol] 170 10*3/uL 150-450 [facility] Serum or plasma calcium honey urement (mass/volume)Ordered By: Dr. Sesay on 10-15-2022 Calcium [Mass/Vol] 8.7 mg/dL 8.5-10.1 [facility] Serum or plasma creatinine m easurement (mass/volume)Ordered By: Dr. Sesay on 10-15-2022 Creatinine [Mass/Vol] 0.66 mg/dL 0.55-1.02 [facility] Comment on above: The validity of the calculated GFR & GFRAA in patients over 70 years has not been determined. Clinical correlation is essential. Serum or plasma urea nitroge n measurement (mass/volume)Ordered By: Dr. Sesay on 10-15-2022 Urea nitrogen [Mass/Vol] 6 mg/dL 7-18 [facility] Thin prep Papanicolaou smear with manual screeningOrdered By: Dr. Sesay on 10-15-2022 Thin prep Papanicolaou smear with manual screening 9 5-15 [facility] Erythrocyte sedimentation ra teOrdered By: Dr. Sesay on 10-13-2022 ESR (Bld) [Velocity] 7 mm/h 0-30 [facility] Absolute lymphocyte countOrd ered By: Dr. Lux on 10-11-2022 Lymphocytes Auto (Unsp spec) [#/Vol] 2.77 10*3/uL 0.83-4.51 [facility] Basophil percentageOrdered B y: Dr. Lux on 10-11-2022 Basophils/100 WBC (Bld) 0.6 % 0-1 [facility] Chloride [Moles/Vol] 107 mmol/L 98-107 [facility] Eosinophils/100 WBC (Bld) 5.7 % 0-5 [facility] Glucose [Mass/Vol] 96 mg/dL 74-106 [facility] Neutrophils (Bld) [#/Vol] 7.4 10*3/uL 2.0-7.7 [facility] Neutrophils/100 WBC (Bld) 63.2 % 47-70 [facility] Potassium [Moles/Vol] 3.8 mmol/L 3.5-5.1 [facility] Sodium [Moles/Vol] 138 mmol/L 136-145 [facility] WBC (Bld) [#/Vol] 11.6 10*3/uL 4.4-11.0 [facility] Beta hCG serum qualOrdered B y: Dr. Lux on 10-11-2022 Beta HCG ( test) Ql Negative [facility] Blood erythrocytes count (nu mber/volume)Ordered By: Dr. Lux on 10-11-2022 RBC (Bld) [#/Vol] 4.57 10*6/uL 4.2-5.4 [facility] Blood hemoglobin measurement (mass/volume)Ordered By: Dr. Lux on 10-11-2022 Hemoglobin (Bld) [Mass/Vol] 13.3 g/dL 12.0-15.0 [facility] Blood lymphocytes/100 leukoc ytesOrdered By: Dr. Lux on 10-11-2022 Lymphocytes/100 WBC (Bld) 23.8 % 19-41 [facility] Blood monocytes/100 leukocyt esOrdered By: Dr. Lux on 10-11-2022 Monocytes/100 WBC (Bld) 6.4 % 0-10 [facility] Blood platelet mean volumeOr dered By: Dr. Lux on 10-11-2022 Platelet mean volume (Bld) [Entitic vol] 12.0 fL 6.2-12.0 [facility] Determination of erythrocyte mean corpuscular volume (MCV)Ordered By: Dr. Lux on 10-11-2022 MCV (RBC) [Entitic vol] 88.6 fL 81-99 [facility] Hematocrit Auto (Bld) [Volum e fraction]Ordered By: Dr. Lux on 10-11-2022 Hematocrit (Bld) [Volume fraction] 40.5 % 37-47 [facility] Laboratory - Chemistry and C hemistry - challengeOrdered By: Dr. Lux on 10-11-2022 CO2 [Moles/Vol] 23.0 mmol/L 21.0-32.0 [facility] Urea nitrogen/Creatinine [Mass ratio] 10.9 mg/mg 10-20 [facility] Laboratory - Hematology and Cell countsOrdered By: Dr. Lux on 10-11-2022 Erythrocyte distribution width (RBC) [Entitic vol] 41.2 fL 35.1-43.9 [facility] Erythrocyte distribution width (RBC) [Ratio] 12.7 % 11.6-14.6 [facility] Immature granulocytes/100 WBC (Bld) 0.300 % 0.0-0.9 [facility] Comment on above: IG% - Immature Granu locytes (promyelocytes, myelocytes and metamyelocytes) > 1% indicates that a LEFT SHIFT is Present. MCH (RBC) [Entitic mass] 29.1 pg 27.0-32.0 [facility] Nucleated RBC/100 WBC (Bld) [Ratio] 0 % 0-5 [facility] MCHC Auto (RBC) [Mass/Vol]Or dered By: Dr. Lux on 10-11-2022 MCHC (RBC) [Mass/Vol] 32.8 g/dL 32-36 [facility] No Panel InformationOrdered By: Dr. Lux on 10-11-2022 Estimated Creatinine Clearance Calc 74.81 ml/min [facility] Estimated GFR (MDRD) Amer 87 mL/min >60 [facility] Comment on above: GFR Calc Estimated GFR (MDRD) Non-Af Amer 72 mL/min >60 [facility] Comment on above: Non- GFR Calc Platelets bldOrdered By: Dr. Lux on 10-11-2022 Platelets (Bld) [#/Vol] 185 10*3/uL 150-450 [facility] Serum or plasma calcium honey urement (mass/volume)Ordered By: Dr. Lux on 10-11-2022 Calcium [Mass/Vol] 9.1 mg/dL 8.5-10.1 [facility] Serum or plasma creatinine m easurement (mass/volume)Ordered By: Dr. Lux on 10-11-2022 Creatinine [Mass/Vol] 1.01 mg/dL 0.55-1.02 [facility] Comment on above: The validity of the calculated GFR & GFRAA in patients over 70 years has not been determined. Clinical correlation is essential. Serum or plasma urea nitroge n measurement (mass/volume)Ordered By: Dr. Lux on 10-11-2022 Urea nitrogen [Mass/Vol] 11 mg/dL 7-18 [facility] Thin prep Papanicolaou smear with manual screeningOrdered By: Dr. Lux on 10-11-2022 Thin prep Papanicolaou smear with manual screening 8 5-15 [facility] UA DIP, URINE (POC)on 2021 BILIRUBIN UA (POCT) Negative Negative [facility] CLARITY UA (POCT) Clear [facility] COLOR UA (POCT) Yellow [facility] GLUCOSE UA (POCT) Negative Negative mg/dL [facility] HEMOGLOBIN/BLOOD UA (POCT) Negative Negative [facility] KETONE UA (POCT) Negative Negative mg/dL [facility] LEUKOCYTES UA (POCT) Negative Negative [facility] NITRITE UA (POCT) Negative Negative [facility] PH UA (POCT) 8.0 4.5 - 8.0 [facility] Protein Ql (U) Negative Negative mg/dL [facility] SPECIFIC GRAVITY UA (POCT) 1.020 1.005 - 1.030 [facility] UROBILINOGEN UA (POCT) 0.2 E.U./dL Normal E.U./ dL [facility] HCG QUAL UR B/Oon 01-01-2022 status Negative neg - pos [facility] Quality Check Yes [facility] Absolute lymphocyte counton 11-18-2021 Lymphocytes Auto (Unsp spec) [#/Vol] 2.56 10*3/uL 0.83-4.51 [facility] Work Phone: Basophil percentageon 2021 Basophils/100 WBC (Bld) 0.4 % 0-1 [facility] Work Phone: Bilirubin [Mass/Vol] 0.40 mg/dL 0.20-1.00 [facility] Work Phone: Comment on above: For patients on eltr ombopag therapy, use of Dimension [place] TBIL is not recommended. Chloride [Moles/Vol] 108 mmol/L 98-107 [facility] Work Phone: Eosinophils/100 WBC (Bld) 1.3 % 0-5 [facility] [facility] Work Phone: Glucose [Mass/Vol] 78 mg/dL 74-106 [facility] Work Phone: Neutrophils (Bld) [#/Vol] 10.1 10*3/uL 2.0-7.7 [facility] Work Phone: Neutrophils/100 WBC (Bld) 73.5 % 47-70 [facility] Work Phone: Potassium [Moles/Vol] 3.9 mmol/L 3.5-5.1 [facility] Work Phone: Protein [Mass/Vol] 6.3 g/dL 6.4-8.2 [facility] Work Phone: Sodium [Moles/Vol] 137 mmol/L 136-145 [facility] Work Phone: WBC (Bld) [#/Vol] 13.7 10*3/uL 4.4-11.0 [facility] Work Phone: Blood erythrocytes count (nu mber/volume)on 11-18-2021 RBC (Bld) [#/Vol] 3.93 10*6/uL 4.2-5.4 [facility] Work Phone: [phone] Blood hemoglobin measurement (mass/volume)on 11-18-2021 Hemoglobin (Bld) [Mass/Vol] 11.6 g/dL 12.0-15.0 [facility] Work Phone: Blood lymphocytes/100 leukoc yteson 11-18-2021 Lymphocytes/100 WBC (Bld) 18.6 % 19-41 [facility] Work Phone: Blood monocytes/100 leukocyt eson 11-18-2021 Monocytes/100 WBC (Bld) 4.8 % 0-10 [facility] Work Phone: Blood platelet mean volumeon 11-18-2021 Platelet mean volume (Bld) [Entitic vol] 11.4 fL 6.2-12.0 [facility] Work Phone: Determination of erythrocyte mean corpuscular volume (MCV)on 11-18-2021 MCV (RBC) [Entitic vol] 88.5 fL 81-99 [facility] Work Phone: Hematocrit Auto (Bld) [Volum e fraction]on 11-18-2021 Hematocrit (Bld) [Volume fraction] 34.8 % 37-47 [facility] Work Phone: [phone] Laboratory - Chemistry and C hemistry - challengeon 11-18-2021 ALP [Catalytic activity/Vol] 141 U/L 45-117 [facility] Work Phone: ALT [Catalytic activity/Vol] 14 U/L 13-56 [facility] Work Phone: CO2 [Moles/Vol] 21.0 mmol/L 21.0-32.0 [facility] Work Phone: Globulin (S) [Mass/Vol] 3.5 g/dL 2.2-4.2 [facility] Work Phone: Urea nitrogen/Creatinine [Mass ratio] 15.5 mg/mg 10-20 [facility] Work Phone: Laboratory - Drug toxicology on 11-18-2021 Benzodiazepines Ql (U) Negative [facility] Work Phone: Cannabinoids Screen Ql (U) Positive [facility] Work Phone: Cocaine Ql (U) Negative [facility] Work Phone: Opiates Ql (U) Negative [facility] Work Phone: Laboratory - Hematology and Cell countson 11-18-2021 Erythrocyte distribution width (RBC) [Entitic vol] 41.3 fL 35.1-43.9 [facility] Work Phone: Erythrocyte distribution width (RBC) [Ratio] 12.6 % 11.6-14.6 [facility] Work Phone: Immature granulocytes/100 WBC (Bld) 1.400 % 0.0-0.9 [facility] Work Phone: Comment on above: IG% - Immature Granu locytes (promyelocytes, myelocytes and metamyelocytes) > 1% indicates that a LEFT SHIFT is Present. MCH (RBC) [Entitic mass] 29.5 pg 27.0-32.0 [facility] Work Phone: Nucleated RBC/100 WBC (Bld) [Ratio] 0 % 0-5 [facility] Work Phone: MCHC Auto (RBC) [Mass/Vol]on 11-18-2021 MCHC (RBC) [Mass/Vol] 33.3 g/dL 32-36 [facility] Work Phone: No Panel Informationon 11-18 Estimated Creatinine Clearance Calc 146.54 ml/min [facility] Work Phone: Estimated GFR (MDRD) Amer 190 mL/min >60 [facility] Work Phone: Comment on above: GFR Calc Estimated GFR (MDRD) Non-Af Amer 157 mL/min >60 [facility] Work Phone: Comment on above: Non- GFR Calc MDMA (Ecstasy) Screen Negative [facility] Work Phone: Urine Barbiturates Screen Negative [facility] Work Phone: Urine Drug Screen Comment [facility] Work Phone: Comment on above: CONFIRMATORY TESTING FOR ALL POSITIVE URINE DRUG SCREENRESULTS WILL ONLY BE SENT OUT UPON PHYSICIAN ORDER. VISTA Urine Drug Screen methods provide only preliminaryanalytical test results. A more specific alternate chemicalmethod must be used in order to obtain a confirmedanalytical result. Gas chromatography/mass spectrometery(GC/MS) is the preferred confirmatory method. Clinicalconsideration and professional judgement should be appliedto any drug of abuse test result, particularly whenpreliminary positive results are used. URINE TCA TESTING MUST BE ORDERED SEPARATELY. USE TESTMNEMONIC: [facility] Urine Methadone Screen Negative [facility] Work Phone: Vaginal Amniotic Fluid Detection Negative Negative [facility] Work Phone: Comment on above: Amniotic fluid not p resent indicates No Rupture of FetalMembranes at time of specimen collection. Platelets bldon 11-18-2021 Platelets (Bld) [#/Vol] 165 10*3/uL 150-450 [facility] Work Phone: Serum or plasma albumin honey urement (mass/volume)on 11-18-2021 Albumin [Mass/Vol] 2.8 g/dL 3.2-5.0 [facility] Work Phone: Serum or plasma albumin/glob ulin mass ratioon 11-18-2021 Albumin/Globulin [Mass ratio] 0.8 {ratio} 0.9-2.4 [facility] Work Phone: Serum or plasma calcium honey urement (mass/volume)on 11-18-2021 Calcium [Mass/Vol] 8.7 mg/dL 8.5-10.1 [facility] Work Phone: Serum or plasma creatinine m easurement (mass/volume)on 11-18-2021 Creatinine [Mass/Vol] 0.52 mg/dL 0.55-1.02 [facility] Work Phone: Comment on above: The validity of the calculated GFR & GFRAA in patients over 70 years has not been determined. Clinical correlation is essential. Serum or plasma urea nitroge n measurement (mass/volume)on 11-18-2021 Urea nitrogen [Mass/Vol] 8 mg/dL 7-18 [facility] Work Phone: Thin prep Papanicolaou smear with manual screeningon 11-18-2021 Thin prep Papanicolaou smear with manual screening 16 U/L 15-37 [facility] Work Phone: Thin prep Papanicolaou smear with manual screening 8 5-15 [facility] Work Phone: Urine amphetamine measuremen t (moles/volume)on 11-18-2021 Amphetamine (U) [Moles/Vol] Negative [facility] Work Phone: Urine phencyclidine (PCP) de tectionon 11-18-2021 Phencyclidine Ql (U) Negative [facility] Work Phone: URINE OB DIP B/Oon 2 Glucose Ql (U) Negative Neg mg/dL [facility] Protein.monoclonal (U) [Mass/Vol] trace Neg mg/dL [facility] URINE OB DIP B/Oon 2 Glucose Ql (U) Negative Neg mg/dL [facility] Protein.monoclonal (U) [Mass/Vol] Negative Neg mg/dL [facility] UA DIP, URINE (POC)on 2021 BILIRUBIN UA (POCT) Negative Negative [facility] CLARITY UA (POCT) Clear [facility] COLOR UA (POCT) Yellow [facility] GLUCOSE UA (POCT) Negative Negative mg/dL [facility] HEMOGLOBIN/BLOOD UA (POCT) Negative Negative [facility] KETONE UA (POCT) Negative Negative mg/dL [facility] LEUKOCYTES UA (POCT) Small Abnormal Negative [facility] NITRITE UA (POCT) Negative Negative [facility] PH UA (POCT) 7.5 4.5 - 8.0 [facility] Protein Ql (U) Negative Negative mg/dL [facility] SPECIFIC GRAVITY UA (POCT) 1.020 1.005 - 1.030 [facility] UROBILINOGEN UA (POCT) 0.2 E.U./dL Normal E.U./ dL [facility] URINE OB DIP B/Oon 2 Glucose Ql (U) Negative Neg mg/dL [facility] Protein.monoclonal (U) [Mass/Vol] trace Neg mg/dL [facility] UA DIP, URINE (POC)on 2021 BILIRUBIN UA (POCT) Negative Negative [facility] CLARITY UA (POCT) Clear [facility] COLOR UA (POCT) Yellow [facility] GLUCOSE UA (POCT) Negative Negative mg/dL [facility] HEMOGLOBIN/BLOOD UA (POCT) Negative Negative [facility] KETONE UA (POCT) Negative Negative mg/dL [facility] LEUKOCYTES UA (POCT) Trace Abnormal Negative [facility] NITRITE UA (POCT) Negative Negative [facility] PH UA (POCT) 8.0 4.5 - 8.0 [facility] Protein Ql (U) Negative Negative mg/dL [facility] SPECIFIC GRAVITY UA (POCT) 1.020 1.005 - 1.030 [facility] UROBILINOGEN UA (POCT) 0.2 E.U./dL Normal E.U./ dL [facility] OBSTETRIC ULTRASOUND WHIon 0 10-12-2021 [facility] URINE OB DIP B/Oon 2 Glucose Ql (U) Negative Neg mg/dL [facility] Protein.monoclonal (U) [Mass/Vol] trace Neg mg/dL [facility] URINE OB DIP B/Oon 2 Glucose Ql (U) Negative Neg mg/dL [facility] Protein.monoclonal (U) [Mass/Vol] Negative Neg mg/dL [facility] Bilirubin Test strip Ql (U)o n 09-13-2021 Bilirubin Ql (U) Negative Negative [facility] Work Phone: Culture, urineon 09-13-2021 Bacteria identified Cx Nom (U) Positive [facility] Work Phone: [phone] fibronectinon 09-14-19 22 Fibronectin. (Vag fld) [Mass/Vol] Negative [facility] Work Phone: Ketones Test strip Ql (U)on 09-13-2021 Ketones Ql (U) 5 mg/dl Negative [facility] Work Phone: Nitrite Test strip Ql (U)on 09-13-2021 Nitrite Ql (U) Negative Negative [facility] Work Phone: Protein Test strip Ql (U)on 09-13-2021 Protein Ql (U) 30 mg/dl Negative [facility] Work Phone: [phone] Urine blood detectionon 04- RBC Ql (U) Negative Negative [facility] Work Phone: [phone] Urine clarityon 09-13-2021 Clarity (U) Clear Clear [facility] Work Phone: Urine color determinationon 09-13-2021 Color (U) Yellow Yellow [facility] Work Phone: [phone] Urine glucose detectionon Glucose Ql (U) Normal mg/dl Normal [facility] Work Phone: [phone] Urine leukocyte esterase det ection by dipstickon 09-13-2021 Leukocyte esterase Test strip Ql (U) 25 /ul Negative [facility] Work Phone: [phone] Urine pHon 09-13-2021 pH (U) 6.0 [pH] [facility] Work Phone: [phone] Urine specific gravity measu rementon 09-13-2021 Specific gravity (U) [Rel density] 1.020 [facility] Work Phone: [phone] Urobilinogen Auto test strip Ql (U)on 09-13-2021 Urobilinogen Ql (U) 4 mg/dl Normal [facility] Work Phone: [phone] URINE OB DIP B/Oon Glucose Ql (U) Negative Neg mg/dL [facility] Protein.monoclonal (U) [Mass/Vol] Negative Neg mg/dL [facility] Basophil percentageon 2021 Bilirubin [Mass/Vol] 0.30 mg/dL 0.20-1.00 [facility] Work Phone: Comment on above: For patients on eltr ombopag therapy, use of Dimension [place] TBIL is not recommended. Chloride [Moles/Vol] 109 mmol/L 98-107 [facility] Work Phone: [phone] Glucose [Mass/Vol] 74 mg/dL 74-106 [facility] Work Phone: [phone] Potassium [Moles/Vol] 3.6 mmol/L 3.5-5.1 [facility] Work Phone: [phone] Protein [Mass/Vol] 6.2 g/dL 6.4-8.2 [facility] Work Phone: [phone] Sodium [Moles/Vol] 137 mmol/L 136-145 [facility] Work Phone: WBC (Bld) [#/Vol] 10.4 10*3/uL 4.4-11.0 [facility] Work Phone: Basophil percentage 0-5 SEEN /hpf [facility] Work Phone: Bilirubin Test strip Ql (U)o n 09-11-2021 Bilirubin Ql (U) 1 mg/dL Negative [facility] Work Phone: Comment on above: COLOR OF URINE MAY A FFECT DIPSTICK RESULTS. Blood erythrocytes count (nu mber/volume)on 09-11-2021 RBC (Bld) [#/Vol] 3.81 10*6/uL 4.2-5.4 [facility] Work Phone: Blood hemoglobin measurement (mass/volume)on 09-11-2021 Hemoglobin (Bld) [Mass/Vol] 11.6 g/dL 12.0-15.0 [facility] Work Phone: Blood platelet mean volumeon 09-11-2021 Platelet mean volume (Bld) [Entitic vol] 11.6 fL 6.2-12.0 [facility] Work Phone: Chlamydia trachomatis rRNA d etection by probe and target amplification methodon 09-11-2021 C. trachomatis rRNA ANURADHA+probe Ql (Unsp spec) Positive Negative [facility] Work Phone: Comment on above: RESULTS CALLED TO Tanisha Ortiz 09/13/21 0934 Mckenzie Connolly.REPORT READ BACK BY SAME. Culture, urineon 09-11-2021 Bacteria identified Cx Nom (U) Positive [facility] Work Phone: Determination of erythrocyte mean corpuscular volume (MCV)on 09-11-2021 MCV (RBC) [Entitic vol] 89.8 fL 81-99 [facility] Work Phone: Hematocrit Auto (Bld) [Volum e fraction]on 09-11-2021 Hematocrit (Bld) [Volume fraction] 34.2 % 37-47 [facility] Work Phone: Ketones Test strip Ql (U)on 09-11-2021 Ketones Ql (U) 5 mg/dl Negative [facility] Work Phone: Laboratory - Chemistry and C hemistry - challengeon 09-11-2021 ALP [Catalytic activity/Vol] 83 U/L 45-117 [facility] Work Phone: ALT [Catalytic activity/Vol] 14 U/L 13-56 [facility] Work Phone: CO2 [Moles/Vol] 23.0 mmol/L 21.0-32.0 [facility] Work Phone: Globulin (S) [Mass/Vol] 3.3 g/dL 2.2-4.2 [facility] Work Phone: Urea nitrogen/Creatinine [Mass ratio] 13.9 mg/mg 10-20 [facility] Work Phone: Laboratory - Hematology and Cell countson 09-11-2021 Erythrocyte distribution width (RBC) [Entitic vol] 42.3 fL 35.1-43.9 [facility] Work Phone: Erythrocyte distribution width (RBC) [Ratio] 12.9 % 11.6-14.6 [facility] Work Phone: MCH (RBC) [Entitic mass] 30.4 pg 27.0-32.0 [facility] Work Phone: Laboratory - Microbiology an d Antimicrobial susceptibilityon 09-11-2021 N. gonorrhoeae DNA ANURADHA+probe Ql (Unsp spec) Negative Negative [facility] Work Phone: Comment on above: Performed at: =[facility] [address] [id number] Director: Susana Dias MD, Phone: [phone] MCHC Auto (RBC) [Mass/Vol]on 09-11-2021 MCHC (RBC) [Mass/Vol] 33.9 g/dL 32-36 [facility] Work Phone: Mucus LM Ql (Urine sed)on Mucus Ql (Urine sed) 0 SEEN /hpf [facility] Work Phone: Nitrite Test strip Ql (U)on 09-11-2021 Nitrite Ql (U) Negative Negative [facility] Work Phone: No Panel Informationon 09-11 Estimated Creatinine Clearance Calc 152.40 ml/min [facility] Work Phone: Estimated GFR (MDRD) Amer 197 mL/min >60 [facility] Work Phone: Comment on above: GFR Calc Estimated GFR (MDRD) Non-Af Amer 162 mL/min >60 [facility] Work Phone: Comment on above: Non- GFR Calc Vaginal Amniotic Fluid Detection Negative Negative [facility] Work Phone: Comment on above: Amniotic fluid not p resent indicates No Rupture of FetalMembranes at time of specimen collection. Platelets bldon 04-05-2022 Platelets (Bld) [#/Vol] 158 10*3/uL 150-450 [facility] Work Phone: [phone] Protein Test strip Ql (U)on 09-11-2021 Protein Ql (U) 30 mg/dl Negative [facility] Work Phone: Serum or plasma albumin honey urement (mass/volume)on 09-11-2021 Albumin [Mass/Vol] 2.9 g/dL 3.2-5.0 [facility] Work Phone: [phone] Serum or plasma albumin/glob ulin mass ratioon 09-11-2021 Albumin/Globulin [Mass ratio] 0.9 {ratio} 0.9-2.4 [facility] Work Phone: [phone] Serum or plasma calcium honey urement (mass/volume)on 09-11-2021 Calcium [Mass/Vol] 8.2 mg/dL 8.5-10.1 [facility] Work Phone: Serum or plasma creatinine m easurement (mass/volume)on 09-11-2021 Creatinine [Mass/Vol] 0.50 mg/dL 0.55-1.02 [facility] Work Phone: Comment on above: The validity of the calculated GFR & GFRAA in patients over 70 years has not been determined. Clinical correlation is essential. Serum or plasma urea nitroge n measurement (mass/volume)on 09-11-2021 Urea nitrogen [Mass/Vol] 7 mg/dL 7-18 [facility] Work Phone: Squamous epithelial cells de tection in urine sediment by light microscopyon 09-11-2021 Epithelial cells.squamous LM Ql (Urine sed) 10-25 SEEN /hpf [facility] Work Phone: Thin prep Papanicolaou smear with manual screeningon 09-11-2021 Thin prep Papanicolaou smear with manual screening 17 U/L 15-37 [facility] Work Phone: Thin prep Papanicolaou smear with manual screening 5 5-15 [facility] Work Phone: Urine blood detectionon 04- RBC Ql (U) Negative Negative [facility] Work Phone: RBC Ql (U) 0 SEEN /hpf [facility] Work Phone: Urine clarityon 09-11-2021 Clarity (U) Sl. Cloudy Clear [facility] Work Phone: Urine color determinationon 09-11-2021 Color (U) Yellow Yellow [facility] Work Phone: Urine glucose detectionon Glucose Ql (U) Normal mg/dl Normal [facility] Work Phone: [phone] Urine leukocyte esterase det ection by dipstickon 09-11-2021 Leukocyte esterase Test strip Ql (U) 100 /ul Negative [facility] Work Phone: [phone] Urine pHon 09-11-2021 pH (U) 6.5 [pH] [facility] Work Phone: Urine sediment bacteria coun t by microscopy (number/high power field)on 09-11-2021 Bacteria LM.HPF (Urine sed) [#/Area] RARE /hpf None Seen [facility] Work Phone: Urine specific gravity measu rementon 09-11-2021 Specific gravity (U) [Rel density] 1.020 [facility] Work Phone: Urobilinogen Auto test strip Ql (U)on 09-11-2021 Urobilinogen Ql (U) 4 mg/dl Normal [facility] Work Phone: Basic Metabolic Panelon 07-3 Calcium [Mass/Vol] 9.5 mg/dL Normal 8.4-10.4 [facility] Comment on above: Performed By: #### H EMOG, BMP3, ETOH4 #### [employer] [address] [place] [address] Glucose [Mass/Vol] 100 mg/dL Normal 70-100 [facility] [employer] Comment on above: Performed By: #### H EMOG, BMP3, ETOH4 #### [facility] [address] [place] [address] Urea nitrogen [Mass/Vol] 7 mg/dL Normal 7-20 [facility] Comment on above: Performed By: #### H EMOG, BMP3, ETOH4 #### [facility] [address] [place] [address] Anion gap [Moles/Vol] 6 mmol/L Normal 3-13 [facility] Comment on above: Performed By: #### H EMOG, BMP3, ETOH4 #### [facility] [address] [place] [address] CO2 [Moles/Vol] 25 mmol/L Normal 22-30 [facility] Comment on above: Performed By: #### H EMOG, BMP3, ETOH4 #### [facility] [address] [place] [address] Creatinine [Mass/Vol] 0.90 mg/dL Normal 0.52-1.25 [facility] Comment on above: Performed By: #### H EMOG, BMP3, ETOH4 #### [facility] [address] [place] [address] eGFR OTHER > 90.0 Normal >60 [facility] Comment on above: Result Comment: KDIG O guidelines provide the following GFR categories: Stage GFR(ml/min/1.73 m2) Terms G1 >=90 Normal or high G2 60-89 Mildly decreased* G3a 45-59 Mildly to moderately decreased G3b 30-44 Moderately to severely decreased G4 15-29 Severely decreased G5 <15 Kidney failure *Relative to young adult level. In the absence of evidence of kidney damage, neither GFR category G1 nor G2 fulfill the criteria for CKD. The CKD-EPI equation is validated in individuals 18 years of age and older. Currently the best equation for estimating glomerular filtration rate (GFR) from serum creatinine in children is the Bedside Valles equation. It is less accurate in patients with extremes of muscle mass, restriction of dietary protein, ingestion of creatine, extra-renal metabolism of creatinine, or treatment with medications that affect renal tubular creatinine secretion. Performed By: #### H EMOG, BMP3, ETOH4 #### [facility] [address] [place] [address] GFR/1.73 sq M.predicted among blacks MDRD (S/P/Bld) [Vol rate/Area] mL/min/{1.73_m2} Normal >60 [facility] Comment on above: Performed By: #### H EMOG, BMP3, ETOH4 #### [facility] [address] [place]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 by ANURADHA with probe detection GONORRHEA/CHLAMYDIA NAAT Lab Routine Vaginal discharge 01/15/2023 3:43 PM EDT [facility] Work Phone: Chlamydia trachomatis+Neisseria gonorrhoeae DNA [Presence] in Unspecified specimen by ANURADHA with probe detection GONORRHEA/CHLAMYDIA NAAT Lab Routine Dysuria 05/14/2023 1:47 PM EST [facility] Work Phone: Chlamydia trachomatis+Neisseria gonorrhoeae DNA [Presence] in Unspecified specimen by ANURADHA with probe detection GONORRHEA/CHLAMYDIA NAAT Lab Routine Urinary frequency Ordered: 10/04/2023 [facility] Comment on above: Ordered: 10/04/2023 Chlamydia trachomatis+Neisseria gonorrhoeae DNA [Presence] in Unspecified specimen by ANURADHA with probe detection GONORRHEA/CHLAMYDIA NAAT Lab Routine Screening for STD (sexually transmitted disease) 05/19/2024 11:[address] [facility] Chlamydia trachomatis+Neisseria gonorrhoeae DNA [Presence] in Unspecified specimen by ANURADHA with probe detection GONORRHEA/CHLAMYDIA NAAT Lab Routine Screen for STD (sexually transmitted disease) 12/22/2024 2:[address] [facility] Chloride [Moles/volu me] in Serum or Plasma [facility] Choriogonadotropin.b eta subunit ( test) [Presence] in Serum or Plasma [facility] Creatinine [Moles/volume] in Serum or Plasma [facility] Erythrocyte mean corpuscular volume determination [facility] Glucose [Mass/volume ] in Serum or Plasma [facility] Hematocrit [Volume Fraction] of Blood [facility] Hemoglobin [Mass/vol ume] in Blood [facility] Leukocytes [#/volume ] in Blood [facility] Mean corpuscular hemoglobin concentration determination [facility] Mean corpuscular hemoglobin determination [facility] Measurement of renal function [facility] Neutrophil count [facility] Neutrophil percent differential count [facility] NEXPLANON INSERTION NEXPLANON IN SERTION Procedures Routine Insertion of implantable subdermal contraceptive Ordered: 01/01/2022 [facility] Work Phone: Comment on above: Ordered: 01/01/2022 NEXPLANON REMOVAL NEXPLANON HUGO MARYJANE Procedures Routine Nexplanon removal Ordered: 04/30/2024 [facility] Work Phone: Comment on above: Ordered: 04/30/2024 OBSTETRIC ULTRASOUND WHI OBSTETR IC ULTRASOUND WHI Anc Imaging Routine 33 weeks gestation of Uterine size-date discrepancy in third trimester History of macrosomia in infant in prior , currently in third trimester Ordered: 10/11/2021 [facility] Work Phone: Comment on above: Ordered: 10/11/2021 PAP TEST PAP TEST Lab Tali javier Encounter for gynecological examination (general) (routine) without abnormal findings Screening for cervical cancer 12/22/2024 2:41 PM EDT [facility] Work Phone: Patient Education [facility] Work Phone: Patient referral [facility] Work Phone: Platelets [#/volume] in Blood [facility] Potassium [Moles/vol ume] in Serum or Plasma [facility] Red blood cell count [facility] Red cell distributio n width determination [facility] ROUTINE, GR OUP B STREP PCR ROUTINE, GROUP B STREP PCR Microbiology Routine 36 weeks gestation of 10/30/2021 3:38 PM EDT [facility] Work Phone: Sodium [Moles/volume ] in Serum or Plasma [facility] Total protein measurement [facility] UA DIP, URINE (POC) UA DIP, URIN E (POC) Lab Routine Dysuria Ordered: 05/14/2023 [facility] Work Phone: Comment on above: Ordered: 05/14/2023 Urea nitrogen [Mass/volume] in Serum or Plasma [facility] Immunizations Immunization Date Immunization Notes Care Provider Rula mantilla 11-08-2024 tetanus toxoid, redu latisha diphtheria toxoid, and acellular pertussis vaccine, adsorbed Krishan Wing APRN.PRINTER MACHINE Work Phone: [facility] 04-21-2024 influenza virus vacc ine, unspecified formulation Janelle Ennisrufino WILLAMS.PRINTER MACHINE Work Phone: [facility] 11-19-2021 measles, mumps and rubella virus vaccine [facility] 09-12-2021 tetanus toxoid, redu latisha diphtheria toxoid, and acellular pertussis vaccine, adsorbed Karyna Roberts MD Work Phone: [facility] 04-23-2021 influenza, injectabl e, quadrivalent, contains preservative Karyna Roberts MD Work Phone: [facility] 04-23-2021 influenza, injectabl e, quadrivalent, preservative free [facility] 04-23-2021 influenza, seasonal, injectable [facility] 04-23-2021 influenza virus vacc ine, unspecified formulation Haider Pereyra MD Work Phone: [facility] 02-22-2020 influenza, injectabl e, quadrivalent, contains preservative Karyna Roberts MD Work Phone: [facility] 06-29-2018 influenza, injectabl e, quadrivalent, contains preservative Karyna Roberts MD Work Phone: [facility] 11-01-2015 meningococcal polysaccharide (groups A, C, Y and W-135) diphtheria toxoid conjugate vaccine (MCV4P) Karyna Roberts MD Work Phone: [facility] Work Phone: 04-07-2015 influenza, injectabl e, quadrivalent, preservative free Karyna Roberts MD Work Phone: [facility] Work Phone: 03-16-2014 influenza, injectabl e, quadrivalent, preservative free Karyna Roberts MD Work Phone: [facility] Work Phone: 03-05-2013 influenza virus vacc ine, unspecified formulation Karyna Roberts MD Work Phone: [facility] 01-16-2012 human papilloma viru s vaccine, quadrivalent Karyna Roberts MD Work Phone: [facility] 05-16-2011 hepatitis A vaccine, unspecified formulation Karyna Roberts MD Work Phone: [facility] Work Phone: 05-16-2011 human papilloma viru s vaccine, quadrivalent Karyna Roberts MD Work Phone: [facility] Work Phone: 05-16-2011 influenza virus vacc ine, unspecified formulation Karyna Roberts MD Work Phone: [facility] Work Phone: 12-11-2010 human papilloma viru s vaccine, quadrivalent Karyna Roberts MD Work Phone: [facility] Work Phone: 12-11-2010 Meningococcal, MCV4, unspecified conjugate formulation(groups A, C, Y and W-135) Karyna Roberts MD Work Phone: [facility] Work Phone: 12-11-2010 tetanus toxoid, redu latisha diphtheria toxoid, and acellular pertussis vaccine, adsorbed Karyna Roberts MD Work Phone: [facility] Work Phone: 04-17-2010 influenza virus vacc ine, unspecified formulation Karyna Roberts MD Work Phone: [facility] Work Phone: 03-30-2009 influenza virus vacc ine, unspecified formulation Karyna Roberts MD Work Phone: [facility] Work Phone: 02-17-2007 hepatitis A vaccine, unspecified formulation Karyna Roberts MD Work Phone: [facility] Work Phone: 02-17-2007 varicella virus vaccine Karyna Roberts MD Work Phone: [facility] Work Phone: 12-21-2003 diphtheria, tetanus toxoids and acellular pertussis vaccine Karyna Roberts MD Work Phone: [facility] Work Phone: 12-21-2003 measles, mumps and rubella virus vaccine Karyna Roberts MD Work Phone: [facility] Work Phone: 12-21-2003 poliovirus vaccine, inactivated Karyna Roberts MD Work Phone: [facility] Work Phone: 02-17-2001 diphtheria, tetanus toxoids and acellular pertussis vaccine Karyna Roberts MD Work Phone: [facility] Work Phone: 02-17-2001 haemophilus influenz ae type b vaccine, HbOC conjugate Karyna Roberts MD Work Phone: [facility] Work Phone: 02-17-2001 hepatitis B vaccine, pediatric or pediatric/adolescent dosage Karyna Roberts MD Work Phone: [facility] Work Phone: 02-17-2001 pneumococcal conjuga te vaccine, 7 valent Karyna Roberts MD Work Phone: [facility] Work Phone: 02-29-2000 hepatitis B vaccine, pediatric or pediatric/adolescent dosage Karyna Roberts MD Work Phone: [facility] Work Phone: 02-29-2000 measles, mumps and rubella virus vaccine Karyna Roberts MD Work Phone: [facility] Work Phone: 02-29-2000 pneumococcal conjuga te vaccine, 7 valent Karyna Roberts MD Work Phone: [facility] Work Phone: 02-29-2000 varicella virus vaccine Karyna Roberts MD Work Phone: [facility] Work Phone: 1999 diphtheria, tetanus toxoids and acellular pertussis vaccine Karyna Roberts MD Work Phone: [facility] Work Phone: 1999 haemophilus influenz ae type b vaccine, HbOC conjugate Karyna Roberts MD Work Phone: [facility] Work Phone: 1999 hepatitis B vaccine, pediatric or pediatric/adolescent dosage Karyna Roberts MD Work Phone: [facility] Work Phone: 1999 poliovirus vaccine, inactivated Karyna Roberts MD Work Phone: [facility] Work Phone: 1999 diphtheria, tetanus toxoids and acellular pertussis vaccine Karyna Roberts MD Work Phone: [facility] Work Phone: 1999 haemophilus influenz ae type b vaccine, HbOC conjugate Karyna Roberts MD Work Phone: [facility] Work Phone: 1999 poliovirus vaccine, inactivated Karyna Roberts MD Work Phone: [facility] Work Phone: 1999 diphtheria, tetanus toxoids and acellular pertussis vaccine Karyna Roberts MD Work Phone: [facility] Work Phone: 1999 haemophilus influenz ae type b vaccine, HbOC conjugate Karyna Roberts MD Work Phone: [facility] Work Phone: 1999 poliovirus vaccine, inactivated Karyna Roberts MD Work Phone: [facility] Work Phone: Payers Date Payer Category Payer Self-pay [id number] 2015 Medicaid [id number] 2015 Medicaid [id number] 2015 Medicaid [employer] [id number] 2015-Present [phone] [address] [place] [address] Medicaid [id number] 2015 Medicaid [id number] 1999 Unknown [id number] Unknown [id number] Unknown [id number] Social History Date Type Detail Facility Start: 04-07-2021 End: 10-15-2023 Tobacco smoking status GAIS Unknown if ever smoked [facility] Start: 09-27-2020 None [facility] Start: 09-27-2020 Alone [facility] Start: 10-18-2020 Cigarettes [facility] Start: 1999 Sex Assigned At Female W [facility] Start: 07-19-2020 End: 09-14-2024 Tobacco smoking status GAIS Smokes tobacco daily [facility] Work Phone: History of tobacco use Cigarette Smoker [facility] Work Phone: Start: 07-19-2020 End: 05-04-2024 Cigarettes smoked current (pack per day) - Reported 0.25 [facility] Start: 07-19-2020 End: 05-19-2024 Tobacco use and exposure Smokeless tobacco non-user [facility] Work Phone: Start: 09-12-2021 End: 12-22-2024 Alcohol intake Current non-drinker of alcohol (finding) [facility] Start: 07-03-2017 End: 02-05-2022 Tobacco Comment [address] [facility] Start: 03-04-2021 [facility] Start: 1999 Sex Assigned At Not on file [facility] Start: 08-18-2021 End: 05-12-2022 Exposure to SARS-CoV-2 (event) Not sure [facility] Start: 10-19-2021 End: 05-19-2024 Tobacco smoking status NHIS Ex-smoker [facility] History of tobacco use Current smoker [facility] Work Phone: Start: 10-28-2022 End: 05-04-[address] [facility] National Score (1-100), lower number is lower risk 80 [facility] Start: 10-10-2022 Gender identity Identifies as female gender (finding) [facility] Start: 09-14-2024 Sex Female (finding) [facility] NEGATED: Highlighted row [facility] Medical Equipment Procedure Code Equipment Code Equipment Origin al Text Equipment Identifier Dates AYDE SIMONS FDA Start: 10-13-2022 RELOAD, SR75 SELECTABLE FDA Start: 10-13-2022 RELOAD, SR75 SELECTABLE FDA Start: 10-13-2022 RELOAD, SR75 SELECTABLE FDA Start: 10-13-2022 RELOAD,REG 60MM [id number] FDA Start: 10-13-2022 FENG ALMAZAN FDA Start: 10-13-2022 AYDE SIMONS FDA Start: 10-13-2022 RELOAD, SR75 SELECTABLE FDA Start: 10-13-2022 RELOAD, SR75 SELECTABLE FDA Start: 10-13-2022 RELOAD, SR75 SELECTABLE FDA Start: 10-13-2022 RELOAD,REG 60MM [id number] FDA Start: 10-13-2022 BUCKY [id number] FDA Start: 10-13-2022 AYDE SIMONS FDA Start: 10-13-2022 RELOAD, SR75 SELECTABLE FDA Start: 10-13-2022 RELOAD, SR75 SELECTABLE FDA Start: 10-13-2022 RELOAD, SR75 SELECTABLE FDA Start: 10-13-2022 RELOAD,REG 60MM [id number] FDA Start: 10-13-2022 STAPLER,TX60B FDA Start: 10-13-2022 AYDE SIMONS Lito GERARDO FDA Start: 10-13-2022 RELOAD, SR75 SELECTABLE FDA Start: 10-13-2022 RELOAD, SR75 SELECTABLE FDA Start: 10-13-2022 RELOAD, SR75 SELECTABLE FDA Start: 10-13-2022 RELOAD,REG 60MM [id number] FDA Start: 10-13-2022 STAPLER,TX60B FDA Start: 10-13-2022 KRISTYNRUTHLENA CARRILLO FDA Start: 10-13-2022 RELOAD, SR75 SELECTABLE FDA Start: 10-13-2022 RELOAD, SR75 SELECTABLE FDA Start: 10-13-2022 RELOAD, SR75 SELECTABLE FDA Start: 10-13-2022 RELOAD,REG 60MM [id number] FDA Start: 10-13-2022 STAPLER,TX60B FDA Start: 10-13-2022 Goals Date Patient Goal Desired Activity /State Functional Status Date Assessment Result Facility 10-15-2022 Functional status Ambulates [facility] Work Phone: 10-11-2014 Are you deaf, or do you have serious difficulty hearing Yes 10/11/2014 3:39 PM Breonna Linares RN Yes [facility] 10-11-2014 Are you blind, or do you have serious difficulty seeing, even when wearing glasses No 10/11/2014 3:39 PM Breonna Linares RN No [facility] 10-11-2014 Do you have serious difficulty walking or climbing stairs No 10/11/2014 3:39 PM Breonna Linares, ANDRES No [facility] 10-11-2014 Do you have difficul ty dressing or bathing No 10/11/2014 3:39 PM Breonna Linares RN No [facility] 10-11-2014 Because of a physica l, mental, or emotional condition, do you have difficulty doing errands alone such as visiting a physician's office or shopping No 10/11/2014 3:39 PM Breonna Linares RN No [facility] Mental Status Date Assessment Result Facility 10-14-2022 [facility] 10-11-2014 Because of a physica l, mental, or emotional condition, do you have serious difficulty concentrating, remembering, or making decisions Yes 10/11/2014 3:39 PM EDT Breonna Cherry RN Yes [facility] Clinical Notes 08-14-2017 to 12-23-2024 Telephone Encounter - Randy Moncada RN - 12/23/2024 9:32 AM EDTTelephone Encounter - Randy Moncada RN - 12/23/2024 9:32 AM Janelle Mancilla APRN.PRINTER MACHINE - 12/22/2024 1:50 PM EDTPatient Instructions Note Date & Type Note Facility 12-23-2024 Telephone encounter Note Pt called asking for results, stating she was locked out of [facility]. Notified Pt of HCG blood level and that pap results are in process. Informed Pt I would help her get password reset-when confirming username-call got disconnected. Called Pt's listed # on chart and # states Person you are trying to reach is not accepting calls at this time. Pt did call from # not listed in chart. Randy Moncada RN [facility] 12-23-2024 Miscellaneous Notes Pt called asking for results, stating she was locked out of [facility]. Notified Pt of HCG blood level and that pap results are in process. Informed Pt I would help her get password reset-when confirming username-call got disconnected. Called Pt's listed # on chart and # states Person you are trying to reach is not accepting calls at this time. Pt did call from # not listed in chart. Randy Moncada RN documented in this encounter [facility] 12-22-2024 Note HNO ID: [id number] Author: JANELLE ENNIS APRN.PRINTER MACHINE Service: ? Author Type: Nurse Practitioner Type: Progress Notes Filed: 12/22/2024 14:39 Note Text: Utilization Management Manager offered: Patient declines. Accompanied by significant otherSymone Alcazar is a 24 year old who presents for an annual gynecologic exam without complaints. 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 Home UPT negative 2 weeks ago. Still get period: Yes Menses every 28-30 days for 7 days Contraception: Nexplanon 01/01/2022 LMP: 10/31/2024 Menses: regular Menstrual flow: Heavy Bleeding amount bothersome: No Bleeding between periods: No Period symptoms: Acne and Cramps Sexually active: Yes HPV vaccine: Yes Last pap smear: 07/19/2020 normal HPV:N/A History of abnormal pap: No Last mammogram: never Patient concerns for STD exposure: No. 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 Viky Stubbs APRN.CNM [...] 02/2018 removed 08/01/2020 NEXPLANON INSERTION Left 01/01/2022 PAST SURGICAL HISTORY OF 2022 colon surgery TONSILLECTOMY AND ADENOIDECTOMY FAMILY HISTORY Problem Relation Age of Onset Hypertension Mother Cardiomyopathy Father Crohn's Disease Brother Hypertension Maternal Grandmother Psychiatry Maternal Grandfather anxiety Prostate Cancer Maternal Grandfather Heart Paternal Grandfather of heart attack SOCIAL HISTORY Social History Tobacco Use Smoking status: Former Current packs/day: 0.25 Average packs/day: 0.3 packs/day for 7.0 years (1.8 ttl pk-yrs) Types: Cigarettes Smokeless tobacco: Never Tobacco comments: 7 cigarettes a day Vaping Use Vaping status: current everyday user Substances: Nicotine, THC Devices: Disposable Substance Use Topics Alcohol use: No Drug use: Yes Types: Marijuana Comment: for depression, anxiety and PTSD REVIEW OF SYSTEMS Abdomen: No abdominal pain, nausea, vomiting, diarrhea, or constipation. No bloating, early satiety, indigestion, or increased flatulence. Bladder: No dysuria, gross hematuria, urinary frequency, urinary urgency, or incontinence. Breast: No breast lumps, nipple d/c, overlying skin changes, redness or skin retraction. Allergies and current medication updated:Yes SENSITIVE EXAM: The sensitive examination was discussed with the Patient or Patient's Authorized Shearing Supervisor. As applicable, any other physician, advance practice provider, medical student, or other health professional student that will be observing or involved in the sensitive examination for educational or training purposes was discussed with the Patient or Authorized Shearing Supervisor. The Patient or Authorized Shearing Supervisor has agreed to proceed with the sensitive examination. (Sensitive examination includes inspection and/or palpation of the breasts, pelvis, prostate and anorectal regions). EXAM: BP 122/88 Ht 5' 3.5 (1.61m) Wt 129 lb (58.5kg) LMP 12/01/2024 BMI 22.49 kg/(m2). GENERAL: pleasant, female in no apparent distress HEENT: Normocephalic, atraumatic, mucus membranes moist, and no lesions NECK: Supple, full range of motion, no adenopathy, and thyroid normal DERMATOLOGY: Normal, without lesions, non-icteric, and non-hirsute BREAST: soft, non-tender, symmetric, no dominant mass, normal nipple-areolar complex, no lymphadenopathy, and no nipple discharge CHEST: Normal inspiratory effort ABDOMEN: soft, non-tender, and no masses PELVIC: external genitalia normal, normal Bartholin's glands, urethra, [place]'s glands, no vulvar lesions, no cervical lesions, good vaginal support, physiologic discharge present, normal appearing perineal body and perianal region BIMANUAL: uterus normal size, shape and consistency, no adnexal masses, and non-tender RECTOVAGINAL: deferred. NEURO: alert and oriented x3,exam grossly non-focal EXTREMITIES: no (more content not included)... [facility] 12-22-2024 History of Presen t illness Narrative Utilization Management Manager offered: Patient declines. Accompanied by significant other. Ottoniel is a 24 year old who presents for an annual gynecologic exam without complaints. 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 Home UPT negative 2 weeks ago. Still get period: Yes Menses every 28-30 days for 7 days Contraception: Nexplanon 01/01/2022 LMP: 10/31/2024 Menses: regular Menstrual flow: Heavy Bleeding amount bothersome: No Bleeding between periods: No Period symptoms: Acne and Cramps Sexually active: Yes HPV vaccine: Yes Last pap smear: 07/19/2020 normal HPV:N/A History of abnormal pap: No Last mammogram: never Patient concerns for STD exposure: No. 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 Viky Stubbs APRN.MARGARITA [...] 02/2018 removed 08/01/2020 NEXPLANON INSERTION Left 01/01/2022 PAST SURGICAL HISTORY OF 2022 colon surgery TONSILLECTOMY & ADENOIDECTOMY <AGE 11 FAMILY HISTORY Problem Relation Age of Onset Hypertension Mother Cardiomyopathy Father Crohn's Disease Brother Hypertension Maternal Grandmother Psychiatry Maternal Grandfather anxiety Prostate Cancer Maternal Grandfather Heart Paternal Grandfather of heart attack SOCIAL HISTORY Social History Tobacco Use Smoking status: Former Current packs/day: 0.25 Average packs/day: 0.3 packs/day for 7.0 years (1.8 ttl pk-yrs) Types: Cigarettes Smokeless tobacco: Never Tobacco comments: 7 cigarettes a day Vaping Use Vaping status: current everyday user Substances: Nicotine, THC Devices: Disposable Substance Use Topics Alcohol use: No Drug use: Yes Types: Marijuana Comment: for depression, anxiety and PTSD REVIEW OF SYSTEMS Abdomen: No abdominal pain, nausea, vomiting, diarrhea, or constipation. No bloating, early satiety, indigestion, or increased flatulence. Bladder: No dysuria, gross hematuria, urinary frequency, urinary urgency, or incontinence. Breast: No breast lumps, nipple d/c, overlying skin changes, redness or skin retraction. Allergies and current medication updated:Yes SENSITIVE EXAM: The sensitive examination was discussed with the Patient or Patient's Authorized Shearing Supervisor. As applicable, any other physician, advance practice provider, medical student, or other health professional student that will be observing or involved in the sensitive examination for educational or training purposes was discussed with the Patient or Authorized Shearing Supervisor. The Patient or Authorized Shearing Supervisor has agreed to proceed with the sensitive examination. (Sensitive examination includes inspection and/or palpation of the breasts, pelvis, prostate and anorectal regions). EXAM: BP 122/88 Ht 5' 3.5 (1.61m) Wt 129 lb (58.5kg) LMP 12/01/2024 BMI 22.49 kg/(m^2). GENERAL: pleasant, female in no apparent distress HEENT: Normocephalic, atraumatic, mucus membranes moist, and no lesions NECK: Supple, full range of motion, no adenopathy, and thyroid normal DERMATOLOGY: Normal, without lesions, non-icteric, and non-hirsute BREAST: soft, non-tender, symmetric, no dominant mass, normal nipple-areolar complex, no lymphadenopathy, and no nipple discharge CHEST: Normal inspiratory effort ABDOMEN: soft, non-tender, and no masses PELVIC: external genitalia normal, normal Bartholin's glands, urethra, [place]'s glands, no vulvar lesions, no cervical lesions, good vaginal support, physiologic discharge present, normal appearing perineal body and perianal region BIMANUAL: uterus normal size, shape and consistency, no adnexal masses, and non-tender RECTOVAGINAL: deferred. NEURO: alert and oriented x3,exam grossly non-focal EXTREMITIES: normal ASSESSMENT/PLAN: 1) Health maintenance: Pap done with reflex HPV. Nutrition, exercise and routine health maintenance exams reviewed. Smoking cessation: Benefits of smoking cessation reviewed. Patient encouraged to avoid smoking. HPV vaccine: completed series 2. Missed menses - ICD9: 626.4, ICD10: N92.6 - HCG QUANTITATIVE 3) Contraception: Nexplanon - has appt for removal and plans to stop contraception but use condoms for now. Recommended PNVFA. 4) STD screening: Accepted STD check for Gonorrhea and Chlamydia. 5) Follow up one year or sooner as needed Janelle Ennis APRN.PRINTER MACHINE documented in this encounter [facility] 11-08-2024 Note HNO ID: [id number] Author: KRISHAN WING APRN.BATOOL Service: ? Author Type: Nurse Practitioner Type: Progress Notes Filed: 11/08/2024 19:46 Note Text: [facility] Subjective Ottoniel Osman is a 24 year old female. Patient presents with: Trauma: Stepped on nail with right foot x 1 day Patient came in with right foot pain after stepping on a nail last night. Patient states that she has numbness and tingling around the puncture sites and feels like her foot is on fire. The patient notes some tenderness with palpation and states it is hard to walk on right foot. Patient states that she stepped on the nails barefoot and then washed the wounds with hydrogen peroxide and rubbing alcohol. Patient states that she has not had a tetanus shot since she was in 6th grade. Denies fever, chills, weakness, or altered mobility. The history is provided by the patient. No speech and language clinician was used. Trauma The current episode started yesterday. Associated symptoms include numbness. Pertinent negatives include no chills, fever, headaches, nausea, vomiting or weakness. Review of Systems Constitutional: Negative for chills and fever. Gastrointestinal: Negative for nausea and vomiting. Skin: Positive for wound. Neurological: Positive for numbness. Negative for weakness and headaches. PAST MEDICAL HISTORY Diagnosis Date Acute bronchiolitis [...] mouth three times a day as needed. (Patient not taking: Reported on 10/04/2023) FAMILY HISTORY Problem Relation Age of Onset Hypertension Mother Cardiomyopathy Father Crohn's Disease Brother Hypertension Maternal Grandmother Psychiatry Maternal Grandfather anxiety Prostate Cancer Maternal Grandfather Heart Paternal Grandfather of heart attack Social History Tobacco Use Smoking status: Former Current packs/day: 0.25 Average packs/day: 0.3 packs/day for 7.0 years (1.8 ttl pk-yrs) Types: Cigarettes Smokeless tobacco: Never Tobacco comments: 7 cigarettes a day Vaping Use Vaping status: Former Substances: Nicotine, THC Devices: Disposable Substance Use Topics Alcohol use: No Drug use: Yes Types: Marijuana Comment: for depression, anxiety and PTSD Objective BP 116/72 Pulse 93 Temp 37.1 ?C (98.7 ?F) Resp 19 Wt 60.5 kg (133 lb 6.1 oz) LMP 10/02/2023 (Approximate) SpO2 99% BMI 23.26 kg/m? Physical Exam HENT: Head: Normocephalic and atraumatic. Cardiovascular: Rate and Rhythm: Normal rate and regular rhythm. Heart sounds: Normal heart sounds. Pulmonary: Effort: Pulmonary effort is normal. Breath sounds: Normal breath sounds. Musculoskeletal: Right foot: Tenderness present. Skin: General: Skin is warm and dry. Findings: Wound present. Comments: Two puncture wounds on the bottom of right foot. No streaking, redness, swelling, or other signs of infection. Neurological: Mental Status: She is alert and oriented to person, place, and time. {ASSESSMENT/PLAN: 1. Puncture wound - ICD9: 879.8, ICD10: T14.8XXA - Patient given tetanus vaccine - Patient educated to soak right foot in epsom salt bath - Educated patient to follow up if puncture site develops streaking, becomes red, swollen or shows other signs of infection - Patient agreeable to care plan with no questions at this time - TDAP VACCINE, AGE 7+ YR (ADACEL, BOOSTRIX) [place] TEACHING PROVIDER (Physician/PA/WATCHGUARD) NOTE OF PERSONAL INVOLVEMENT IN CARE: I have personally seen and examined the patient and performed the medical decision-making components. I have reviewed the Advanced Practice Registered Nurse (WATCHGUARD) Student's documentation and verified the findings in the note as written. Any additions or changes are noted in bold/italics. Signature: Krishan Wing Date: 11/08/2024 Time: 7:31 PM (more content not included)... [facility] 11-08-2024 History of Presen t illness Narrative [facility] Subjective Ottoniel Osman is a 24 year old female. Patient presents with: Trauma: Stepped on nail with right foot x 1 day Patient came in with right foot pain after stepping on a nail last night. Patient states that she has numbness and tingling around the puncture sites and feels like her foot is on fire. The patient notes some tenderness with palpation and states it is hard to walk on right foot. Patient states that she stepped on the nails barefoot and then washed the wounds with hydrogen peroxide and rubbing alcohol. Patient states that she has not had a tetanus shot since she was in 6th grade. Denies fever, chills, weakness, or altered mobility. The history is provided by the patient. No speech and language clinician was used. Trauma The current episode started yesterday. Associated symptoms include numbness. Pertinent negatives include no chills, fever, headaches, nausea, vomiting or weakness. Review of Systems Constitutional: Negative for chills and fever. Gastrointestinal: Negative for nausea and vomiting. Skin: Positive for wound. Neurological: Positive for numbness. Negative for weakness and headaches. PAST MEDICAL HISTORY Diagnosis Date Acute bronchiolitis due to respiratory syncytial virus (RSV) resolved Asthma no asthma attacks in several years Attention deficit hyperactivity disorder (ADHD), combined type 01/25/2015 Chlamydia trachomatis infection in in first trimester 05/21/2021 11/14/21- ALLEN negative. Viky Stubbs APRN.MARGARITA Chlamydia positive again 10/19/21. Depression 10/11/2014 Hospitalized [...] mouth three times a day as needed. (Patient not taking: Reported on 10/04/2023) FAMILY HISTORY Problem Relation Age of Onset Hypertension Mother Cardiomyopathy Father Crohn's Disease Brother Hypertension Maternal Grandmother Psychiatry Maternal Grandfather anxiety Prostate Cancer Maternal Grandfather Heart Paternal Grandfather of heart attack Social History Tobacco Use Smoking status: Former Current packs/day: 0.25 Average packs/day: 0.3 packs/day for 7.0 years (1.8 ttl pk-yrs) Types: Cigarettes Smokeless tobacco: Never Tobacco comments: 7 cigarettes a day Vaping Use Vaping status: Former Substances: Nicotine, THC Devices: Disposable Substance Use Topics Alcohol use: No Drug use: Yes Types: Marijuana Comment: for depression, anxiety and PTSD Objective BP 116/72 Pulse 93 Temp 37.1 C (98.7 F) Resp 19 Wt 60.5 kg (133 lb 6.1 oz) LMP 10/02/2023 (Approximate) SpO2 99% BMI 23.26 kg/m Physical Exam HENT: Head: Normocephalic and atraumatic. Cardiovascular: Rate and Rhythm: Normal rate and regular rhythm. Heart sounds: Normal heart sounds. Pulmonary: Effort: Pulmonary effort is normal. Breath sounds: Normal breath sounds. Musculoskeletal: Right foot: Tenderness present. Skin: General: Skin is warm and dry. Findings: Wound present. Comments: Two puncture wounds on the bottom of right foot. No streaking, redness, swelling, or other signs of infection. Neurological: Mental Status: She is alert and oriented to person, place, and time. {ASSESSMENT/PLAN: 1. Puncture wound - ICD9: 879.8, ICD10: T14.8XXA - Patient given tetanus vaccine - Patient educated to soak right foot in epsom salt bath - Educated patient to follow up if puncture site develops streaking, becomes red, swollen or shows other signs of infection - Patient agreeable to care plan with no questions at this time - TDAP VACCINE, AGE 7+ YR (ADACEL, BOOSTRIX) [place] TEACHING PROVIDER (Physician/PA/WATCHGUARD) NOTE OF PERSONAL INVOLVEMENT IN CARE: I have personally seen and examined the patient and performed the medical decision-making components. I have reviewed the Advanced Practice Registered Nurse (WATCHGUARD) Student's documentation and verified the findings in the note as written. Any additions or changes are noted in bold/italics. Signature: Krishan Wing Date: 11/08/2024 Time: 7:31 PM History and Record Review External record(s) reviewed: no prior records. Procedures documented in this encounter [facility] 07-16-2024 Telephone encounter Note Vaginal pain appointment and nexplanon appointment both booked for today with different providers- pt notified that will only be able to be seen for one. Spoke with patient this morning on the phone and advised to come at 11:[address] Roberts and would address vaginal pain at that time and reschedule nexplanon appointment while here at the office.Patient verbalized understanding of appointment time. Pt no showed 11:[address] [facility] 07-16-2024 Miscellaneous Notes Vaginal pain appointment and nexplanon appointment both booked for today with different providers- pt notified that will only be able to be seen for one. Spoke with patient this morning on the phone and advised to come at 11:[address] Roberts and would address vaginal pain at that time and reschedule nexplanon appointment while here at the office.Patient verbalized understanding of appointment time. Pt no showed 11:[address] Roberts. Pt calls stating she had intercourse the other day, began to have discomfort in vaginal area so stopped intercourse. As of yesterday, Pt's boyfriend noticed knot down in Pt's vaginal area (bottom area from vagina to butt). Pt states it hurts, is sore/abbott rating 5/6 & has taken ibuprofen and bath and only works for approx 30 minutes. Can barely sit down, can hardly wear underwear Voices Increase in vaginal discharge, but due to start period soon. Pt states she has had 2 children and has torn in past and needed repaired, but has never noticed this knot until now and has not had this pain until now. 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 Pt does have nexplanon removal appt tomorrow and advised Pt that unfortunately, she will need to still come tomorrow for that appt as we cannot do that today as well. Pt voiced understanding and appt made for 1pm with AG. Randy Moncada RN documented in this encounter [facility] 07-16-2024 Telephone encounter Note Pt calls stating she had intercourse the other day, began to have discomfort in vaginal area so stopped intercourse. As of yesterday, Pt's boyfriend noticed knot down in Pt's vaginal area (bottom area from vagina to butt). Pt states it hurts, is sore/abbott rating 5/6 & has taken ibuprofen and bath and only works for approx 30 minutes. Can barely sit down, can hardly wear underwear Voices Increase in vaginal discharge, but due to start period soon. Pt states she has had 2 children and has torn in past and needed repaired, but has never noticed this knot until now and has not had this pain until now. 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 Pt does have nexplanon removal appt tomorrow and advised Pt that unfortunately, she will need to still come tomorrow for that appt as we cannot do that today as well. Pt voiced understanding and appt made for 1pm with AG. Randy Moncada RN [facility] 05-20-2024 Telephone encounter Note Pt returned call and given provider's message below with verbalized understanding. [facility] 05-20-2024 Miscellaneous Notes Pt returned call and given provider's message below with verbalized understanding. TC to patients mobile number and received message unable to complete call. Sent MC message asking patient to call in and discuss results. JAMAL Owusu Please inform patient that STD panel was negative. Follow-up with ORAL SURGEON or PCP as needed. Jagdish Metzger APRN.BATOOL documented in this encounter [facility] 05-20-2024 Telephone encounter Note TC to patients mobile number and received message unable to complete call. Sent MC message asking patient to call in and discuss results. JAMAL Owusu [facility] 05-20-2024 Telephone encounter Note Please inform patient that STD panel was negative. Follow-up with ORAL SURGEON or PCP as needed. Jagdish Metzger APRN.PRINTER MACHINE [facility] Work Phone: 05-19-2024 Note HNO ID: [id number] Author: JESSE ARRIAZA PA-C Service: ? Author Type: Physician Book Salesman Type: Progress Notes Filed: 05/19/2024 11:32 Note Text: This note was created using [employer]. Subjective Ottoniel Osman is a 24 year old female. HPI Presents with a chief complaint of wanting STD screening. She has been with her boyfriend for 3 years, he started having some drainage so she would like tested. She herself is not having any vaginal itching, drainage or discharge. She is on the Nexplanon, denies chance of . She denies fever or chills. No urinary symptoms. States she did have chlamydia in September that was treated. Review of Systems Constitutional: Negative. HENT: Negative. Eyes: Negative. Respiratory: Negative. Cardiovascular: Negative. Gastrointestinal: Negative. Genitourinary: Negative. Musculoskeletal: Negative. All other systems reviewed and are negative. PAST MEDICAL HISTORY Diagnosis Date Acute bronchiolitis due to respiratory syncytial virus (RSV) resolved Asthma no asthma attacks in several years Attention deficit hyperactivity disorder (ADHD), combined type 01/25/2015 Chlamydia trachomatis infection in in first trimester 05/21/2021 11/14/21- ALLEN negative. Viky StubbsIMER.CNM Chlamydia positive again 10/19/21. SW Depression 10/11/2014 Hospitalized 10/03/2014. Dysmenorrhea 05/31/2013 Family history of hypertrophic cardiomyopathy 11/01/2015 Fatigue 05/31/2013 Menarche 11/2011 Age 11 Nexplanon insertion 02/2018 Left arm PTSD (post-traumatic stress disorder) Short stature resolved Unspecified asthma(493.90) Current Outpatient Medications Medication Sig Dispense Refill cetirizine (ZYRTEC) 10 mg tablet Take 1 tablet by mouth once daily. 30 tablet 0 etonogestrel (NEXPLANON) subdermal implant 68 mg 1 Each by SUBDERMAL route as directed. 1 Each 0 phenazopyridine (PYRIDIUM) 200 mg tablet Take 1 tablet by mouth three times a day as needed. (Patient not taking: Reported on 10/04/2023) 12 tablet 0 No current facility-administered medications for this visit. PAST SURGICAL HISTORY Procedure Laterality Date NEXPLANON INSERTION 06/22/2015 removed 04/2017 NEXPLANON INSERTION 02/2018 removed 08/01/2020 NEXPLANON INSERTION Left 01/01/2022 TONSILLECTOMY AND ADENOIDECTOMY FAMILY HISTORY Problem Relation Age of Onset Hypertension Mother Cardiomyopathy Father Crohn's Disease Brother Hypertension Maternal Grandmother Psychiatry Maternal Grandfather anxiety Prostate Cancer Maternal Grandfather Heart Paternal Grandfather of heart attack Social History Tobacco Use Smoking status: Former Current packs/day: 0.25 Average packs/day: 0.3 packs/day for 7.0 years (1.8 ttl pk-yrs) Types: Cigarettes Smokeless tobacco: Never Tobacco comments: 7 cigarettes a day Vaping Use Vaping status: Former Substances: Nicotine, THC Devices: Disposable Substance Use Topics Alcohol use: No Drug use: Yes Types: Marijuana Comment: for depression, anxiety and PTSD Objective BP 102/68 Pulse 78 Temp 36.8 ?C (98.2 ?F) Resp 22 Wt 58.3 kg (128 lb 8.5 oz) LMP 10/02/2023 (Approximate) SpO2 99% BMI 22.41 kg/m? Physical Exam Vitals reviewed. Constitutional: Appearance: Normal appearance. HENT: Head: Normocephalic and atraumatic. Genitourinary: Comments: Exam deferred Skin: General: Skin is warm and dry. Neurological: General: No focal deficit present. Mental Status: She is alert and oriented to person, place, and time. Assessment and Plan ASSESSMENT/PLAN: 1. Screening for STD (sexually transmitted disease) - ICD9: V74.5, ICD10: Z11.3 Will call on results. - GONORRHEA/CHLAMYDIA NAAT - SYPHILIS TREPONEMAL W/REFLEX - HIV 1/2 COMBO WITH REFLEX TO DIFFERENTIATION - HEPATITIS C ANTIBODY IA WITH CONFIRMATION - HEPATITIS B SURFACE ANTIGEN - TRACEY/TRICHOMONAS NAAT Jesse Arriaza PA-C [facility] 05-19-2024 History of Presen t illness Narrative This note was created using [employer]. Subjective Ottoniel Osman is a 24 year old female. HPI Presents with a chief complaint of wanting STD screening. She has been with her boyfriend for 3 years, he started having some drainage so she would like tested. She herself is not having any vaginal itching, drainage or discharge. She is on the Nexplanon, denies chance of . She denies fever or chills. No urinary symptoms. States she did have chlamydia in September that was treated. Review of Systems Constitutional: Negative. HENT: Negative. Eyes: Negative. Respiratory: Negative. Cardiovascular: Negative. Gastrointestinal: Negative. Genitourinary: Negative. Musculoskeletal: Negative. All other systems reviewed and are negative. PAST MEDICAL HISTORY Diagnosis Date Acute bronchiolitis [...] stress disorder) Short stature resolved Unspecified asthma(493.90) Current Outpatient Medications Medication Sig Dispense Refill cetirizine (ZYRTEC) 10 mg tablet Take 1 tablet by mouth once daily. 30 tablet 0 etonogestrel (NEXPLANON) subdermal implant 68 mg 1 Each by SUBDERMAL route as directed. 1 Each 0 phenazopyridine (PYRIDIUM) 200 mg tablet Take 1 tablet by mouth three times a day as needed. (Patient not taking: Reported on 10/04/2023) 12 tablet 0 No current facility-administered medications for this visit. PAST SURGICAL HISTORY Procedure Laterality Date NEXPLANON INSERTION 06/22/2015 removed 04/2017 NEXPLANON INSERTION 02/2018 removed 08/01/2020 NEXPLANON INSERTION Left 01/01/2022 TONSILLECTOMY & ADENOIDECTOMY <AGE 11 FAMILY HISTORY Problem Relation Age of Onset Hypertension Mother Cardiomyopathy Father Crohn's Disease Brother Hypertension Maternal Grandmother Psychiatry Maternal Grandfather anxiety Prostate Cancer Maternal Grandfather Heart Paternal Grandfather of heart attack Social History Tobacco Use Smoking status: Former Current packs/day: 0.25 Average packs/day: 0.3 packs/day for 7.0 years (1.8 ttl pk-yrs) Types: Cigarettes Smokeless tobacco: Never Tobacco comments: 7 cigarettes a day Vaping Use Vaping status: Former Substances: Nicotine, THC Devices: Disposable Substance Use Topics Alcohol use: No Drug use: Yes Types: Marijuana Comment: for depression, anxiety and PTSD Objective BP 102/68 Pulse 78 Temp 36.8 C (98.2 F) Resp 22 Wt 58.3 kg (128 lb 8.5 oz) LMP 10/02/2023 (Approximate) SpO2 99% BMI 22.41 kg/m Physical Exam Vitals reviewed. Constitutional: Appearance: Normal appearance. HENT: Head: Normocephalic and atraumatic. Genitourinary: Comments: Exam deferred Skin: General: Skin is warm and dry. Neurological: General: No focal deficit present. Mental Status: She is alert and oriented to person, place, and time. Assessment and Plan ASSESSMENT/PLAN: 1. Screening for STD (sexually transmitted disease) - ICD9: V74.5, ICD10: Z11.3 Will call on results. - GONORRHEA/CHLAMYDIA NAAT - SYPHILIS TREPONEMAL W/REFLEX - HIV 1/2 COMBO WITH REFLEX TO DIFFERENTIATION - HEPATITIS C ANTIBODY IA WITH CONFIRMATION - HEPATITIS B SURFACE ANTIGEN - TRACEY/TRICHOMONAS NAAT Jesse Arriaza PA-C documented in this encounter [facility] 04-30-2024 Telephone encounter Note Order signed. Please assist with scheduling. Viky Stubbs APRN.CNM [facility] Work Phone: 04-30-2024 Miscellaneous Notes Order signed. Please assist with scheduling. Viky Stubbs APRN.CNM Pt wishes to have nexplanon removed only. Please address in KJ absence.Randy oMncada RN See Pt's mychart message. Nexplanon removal order placed. Sent clarification mychart message to patient re: whether she wanted another one placed. Will then schedule appt and link request. Randy Moncada RN documented in this encounter [facility] 04-30-2024 Telephone encounter Note Pt wishes to have nexplanon removed only. Please address in KJ absence.Randy Moncada RN [facility] 04-30-2024 Telephone encounter Note See Pt's mychart message. Nexplanon removal order placed. Sent clarification mychart message to patient re: whether she wanted another one placed. Will then schedule appt and link request. Randy Moncada RN [facility] 11-14-2023 History of Presen t illness Narrative CC: Patient presents with: UTI: Frequency, nausea, burning x this AM Patient has a frequent UTIs says it feels the same HPI Ottoniel Osman is a 23 year old female who presents with complaint of possible UTI. These symptoms have been present for this am days. Associated symptoms: burning and frequency Denies: pressure, fever, chills, sweats, abdominal pain, and flank pain Treatments: nothing The ROS was otherwise negative. PMH, Medications, labs, allergies, and recent past visits with PCP were reviewed and updated as able. PHYSICAL EXAM: BP 121/77 Pulse 94 Temp 36.4 C (97.6 F) Resp 18 Wt 61.7 kg (136 lb 0.4 oz) LMP 10/02/2023 (Approximate) SpO2 97% BMI 23.72 kg/m General: Well appearing and alert CV: Regular rate and rhythm without obvious murmur Lungs: clear to auscultation bilaterally Back: straight and symmetric Abdomen: soft, nontender, nondistended PAST MEDICAL HISTORY Diagnosis Date Acute bronchiolitis [...] 1 Each by SUBDERMAL route as directed. nitrofurantoin monohydrate and macrocrystal (MACROBID) 100 mg capsule Take 1 capsule by mouth two times a day for 5 days. phenazopyridine (PYRIDIUM) 200 mg tablet Take 1 tablet by mouth three times a day as needed. (Patient not taking: Reported on 10/04/2023) FAMILY HISTORY Problem Relation Age of Onset [...] Urinary frequency - ICD9: 788.41, ICD10: R35.0 - UA DIP, URINE (POC) - URINE CULTURE - NITROFURANTOIN MONOHYDRATE & MACROCRYSTAL 100 MG ORAL CAP Prescription instructions reviewed with patient as applicable. Potential red flag symptoms discussed with the patient. Reviewed appropriate action plan to take if red flag symptoms occur. Patient agreeable to treatment plan. Krishan Wing APRN.BATOOL documented in this encounter [facility] 10-05-2023 Telephone encounter Note Patient given results and verbalized understanding of instructions given. Loan Cortez MA [facility] 10-05-2023 Miscellaneous Notes Patient given results and verbalized understanding of instructions given. Loan Cortez MA Left message for patient to return call. Loan Cortez MA Patient is positive for bacterial vaginosis. Flagyl was called in twice a day for 7 days. Patient should not drink alcohol on medication. Patient was negative for chlamydia, gonorrhea, trichomonas, and yeast. Patient should follow-up with [facility] if symptoms persist. documented in this encounter [facility] 10-05-2023 Telephone encounter Note Left message for patient to return call. Loan Cortez MA [facility] 10-05-2023 Telephone encounter Note Patient is positive for bacterial vaginosis. Flagyl was called in twice a day for 7 days. Patient should not drink alcohol on medication. Patient was negative for chlamydia, gonorrhea, trichomonas, and yeast. Patient should follow-up with [facility] if symptoms persist. [facility] 10-04-2023 History of Presen t illness Narrative Tony Alcazar presents today with complain of urinary frequency and pressure. She states she also would just like std testing because she has a new partner that was just released from shelter. She states she does not have any vaginal complaints periods are regular. She is using the nexplanon for contraception Ottoniel presents today with complain of urinary frequency and pressure. She states she also would just like std testing because she has a new partner that was just released from shelter. She states she does not have any vaginal complaints periods are regular. PAST MEDICAL HISTORY Diagnosis Date Acute bronchiolitis due to respiratory syncytial virus (RSV) resolved Asthma no asthma attacks in several years Attention deficit hyperactivity disorder (ADHD), combined type 01/25/2015 Chlamydia trachomatis infection in in first trimester 05/21/2021 11/14/21- ALLEN negative. Viky Stubbs, WATCHGUARD.CNM Chlamydia positive again 10/19/21. SW Depression 10/11/2014 [...] ADENOIDECTOMY <AGE 12 ALLERGIES Seasonal Allergies MEDICATIONS phenazopyridine (PYRIDIUM) 200 mg tablet Take 1 tablet by mouth three times a day as needed. (Patient not taking: Reported on 10/04/2023) cetirizine (ZYRTEC) 10 mg tablet Take 1 tablet by mouth once daily. etonogestrel (NEXPLANON) subdermal implant 68 mg 1 Each by SUBDERMAL route as directed. FAMILY HISTORY Problem Relation Age of Onset [...] depression, anxiety and PTSD Review of Systems Genitourinary: Positive for frequency. All other systems reviewed and are negative. Objective Physical Exam Vitals and nursing note reviewed. Constitutional: Appearance: Normal appearance. HENT: Head: Normocephalic. Nose: Nose normal. Mouth/Throat: Mouth: Mucous membranes are moist. Cardiovascular: Rate and Rhythm: Normal rate and regular rhythm. Pulmonary: Effort: Pulmonary effort is normal. Abdominal: General: Abdomen is flat. There is no distension. Palpations: Abdomen is soft. There is no mass. Tenderness: There is no abdominal tenderness. There is no right CVA tenderness, left CVA tenderness, guarding or rebound. Hernia: No hernia is present. Genitourinary: Vagina: Vaginal discharge present. Musculoskeletal: General: Normal range of motion. Cervical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 chills; Denies fatigue Eyes Eyes: Denies blurry vision ENT HEENT: Denies abnormal hearing Cardiovascular Cardiovascular: Denies chest pain Respiratory/Chest Respiratory/Chest: Denies cough or dyspnea Gastrointestinal Gastrointestinal: Reports abdominal pain and nausea; Denies coffee ground emesis, melena or rectal bleeding Genitourinary Genitourinary: Denies change in urinary stream Musculoskeletal Musculoskeletal: Denies abnormal gait Integumentary Integumentary: Denies jaundice Neurologic Neurologic: Denies abnormal gait Vital Signs Vital Signs Vital Signs: 10/11/22 21:11 10/11/22 23:19 Temperature 98.0 F 98.8 F Temperature Source Oral Temporal Pulse Rate 102 H 99 Respiratory Rate 16 18 Blood Pressure 111/71 117/69 Blood Pressure Mean 84 85 Blood Pressure Source Monitor Blood Pressure Position Semi-Fowlers Blood Pressure Location Right Arm Pulse Ox 100 97 Oxygen Delivery Method Room Air Room Air Weight Weight: 321 lb 13.998 oz Body Mass Index (BMI) 55.2 Physical Exam Const oriented x3 and no apparent distress Resp normal respiratory effort Cardio regular rate and regular rhythm GI soft to palpation Palpation: tender RLQ Extremity normal to inspection Results Lab / Micro Data Result Diagrams: 10/11/22 21:31 10/11/22 21:31 Labs: Laboratory Results - last 24 hr 10/11/22 21:31: WBC 11.6 H, RBC 4.57, Hgb 13.3, Hct 40.5, MCV 88.6, MCH 29.1, MCHC 32.8, RDW Std Deviation 41.2, RDW Coeff of Melchor 12.7, Plt Count 185, MPV 12.0, Immature Gran % (Auto) 0.300, Neut % (Auto) 63.2, Lymph % (Auto) 23.8, Davison % (Auto) 6.4, Eos % (Auto) 5.7 H, Baso % (Auto) 0.6, Absolute Neuts (auto) 7.4, Absolute Lymphs (auto) 2.77, Nucleated RBC % 0 10/11/22 21:31: Sodium 138, Potassium 3.8, Chloride 107, Carbon Dioxide 23.0, Anion Gap 8, BUN 11, Creatinine 1.01, Estim Creat Clear Calc 74.81, Est GFR (MDRD) Af Amer 87, Est GFR (MDRD) Non-Af 72, BUN/Creatinine Ratio 10.9, Glucose 96, Calcium 9.1 10/11/22 21:31: Serum , Qual NEGATIVE Radiology Impression Abdomen/Pelvis CT 10/11/22 21:26 IMPRESSION: 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 No evidence of perforation or abscess at this time. Surgical consultation recommended. Electronically Signed: Haider Hernandez MD at 22:49 EDT Reading Location ID and State: [facility] / [place] , Service support , Assessment & Plan Assessment/Plan (1) Diverticulitis: PLAN: Patient has a slightly elevated white count and nausea and right lower quadrant pain. She had a CT scan which showed diverticulitis of the cecum with inflammation. This is a very odd presentation for young female to have diverticulitis in the cecum. I will admit her and treat her like normal diverticulitis of the sigmoid for now. I will admit her and have her on bowel rest and start IV fluids and IV antibiotics. Continue pain control. If the patient worsens atall I recommend ileocecectomy. I discussed this with her. If everything improves I will slowly start a diet and repeat a CT needed in the coming weeks and perform a colonoscopy in 4 to 6 weeks. Roberto Carlos Sesay MD Pager: [facility] [address] [place] [address], [address] [place] [address] Office: 10/11/22 2340 <Electronically signed by Roberto Carlos Sesay MD> Cosigner Signature (if applicable): CC: Dr. Roberto Carlos Sesay MD; No Primary Care Physician~ Signed [facility] Work Phone: 1(292) 146-543805-05-2023 Miscellaneous Notes* Telephone Encounter - Bernadine San RN - 10/11/2022 8:34 PM EDT Reason for Call: Severe right sided abdominal pain Outcome: Go to ED now. Patient acknowledges understanding and states she will go to ED now. Reason for Disposition [1] SEVERE pain (e.g., excruciating) AND [2] present > 1 hour Protocols used: Abdominal Pain - [id number] Patient states she started period yesterday, started having abdominal pain. The pain has increased and is excruciating on her right side. documented in this encounterSt[facility] History of Present illness Narrative* Almaz Ha APRN.BATOOL - 05/12/2022 2:48 PM EST Subjective The history is provided by the patient. No speech and language clinician was used. HPI Ottoniel Osman is a 22 year old female [...] trimester 05/21/2021 11/14/21- ALLEN negative. Viky Stubbs, IMER.CNM Chlamydia positive again 10/19/21. SW Depression 10/11/2014 Hospitalized 10/03/2014. Dysmenorrhea 05/31/2013 Family history of hypertrophic cardiomyopathy 11/01/2015 Fatigue 05/31/2013 Menarche 11/2011 Age 11 Nexplanon insertion 02/2018 Left arm PTSD (post-traumatic stress disorder) Short stature resolved Unspecified asthma(493.90) I have confirmed and edited as necessary, the [facility] Review of Systems Constitutional: Negative [...] for higher level of care were discussed indetail warranting prompt ER evaluation. Almaz Ha APRN.CNP documented in this encounterSt. [facility]12-04-2022 Instructions* Patient Instructions* Almaz Ha APRN.CNP - 05/12/2022 2:41 PM [...] breath, inability to swallow. documented in this encounterSt. [facility]11-19-2022 History of Present illness Narrative* Krishan Wing APRN.CNP - 04/27/2022 1:36 PM EST CC: Patient presents with: Urinary Frequency: burning with urination x 2 days She recently had a new sexual partner. HPI Ottoniel Osman is a 22 year old female [...] (Patient not taking: Reported on 12/17/2021 ) [id number]-xxv ( PLUS DHA) 18 mg iron-800 mcg-290 [...] symptoms occur. Patient agreeable to treatment plan. Krishan Wing APRN.BATOOL documented in this encounterSt. [facility]08-31-2022 Miscellaneous Notes* Telephone Encounter - Abbey Castillo RN - 02/06/2022 10:58 AM EDT Patient was seen at urgent care yesterday. Was put on Doxycycline yesterday for axillary infection.Tested negative for BV, trich and yeast yesterday. I called patent and she states discharge is whitish and smells like ammonia. No itching. Please advise documented in this encounterSt. [facility]08-30-2022 Instructions* Patient Instructions* Meri Mehta APRN.CNP - 02/05/2022 5:04 PM EDT VAGINAL DISCHARGE [...] cottage cheese Vaginal creams or pills Trichomoniasis (Trick) Yes Green, yellow, or richard in color; frothy Pills ordered by your doctor Bacterial vaginosis (Gardnerella or BV) Probably not White discharge that smells fishy Pills or vaginal cream ordered by your doctor Gonorrhea (Clap) Yes Cloudy or yellow, but often no symptoms Pills or shots ordered by your doctor Chlamydia (Auc-ars-rb-ah) Yes Often no symptoms Pills ordered by [...] swelling, or soreness around the vagina. Copyright [id number] The [facility]. All rights reserved. This information is provided by the [facility] and is not intended to replace the medical advice of your doctor or health care provider. Please consult your health care provider for advice about a specific medical condition. For additional written health information, please contact the [facility] at the [facility] or toll-free extension [phone]. This document was last reviewed on: 2004 index#2269 ABSCESS (BOIL): You have a skin abscess, [...] the skin. Boils are contagious, so you shoulddispose of soiled bandages carefully and not share [...] drainage after 3-4 days. documented in this encounterSt. [facility]08-30-2022 History of Present illness Narrative* Meri Mehta APRN.CNP - 02/05/2022 4:54 PM EDT This note was created using NoteWriter. Subjective Ottoniel Osman is a 21 year old female. [...] history is provided by the patient. No speech and language clinician was used. Abscess This is a new problem. The current episode started 1 to 4 weeks ago. The problem occurs constantly.The problem has been waxing and waning. Pertinent [...] trimester 05/21/2021 11/14/21- ALLEN negative. Viky Stubbs APRN.CNCecilia Chlamydia positive again 10/19/21. SW Depression [...] (Patient not taking: Reported on 12/17/2021 ) [id number]-Ebfvkqd-pycjn4-cgm ( PLUS DHA) 18 mg iron-800 mcg-290 [...] 78 kg (172 lb) LMP (LMP Unknown) KoH652% BMI 29.99 kg/m Physical Exam Vitals and [...] if need be return 02/07/22 Meri Mehta APRN.CNP documented in this encounterSt. [facility]07-26-2022 History of Present illness Narrative* Janelle Ennis APRN.CNP - 01/01/2022 3:22 PM EDT Ottoniel is a 21 year old patient who presents for Nexplanon insertion. Pt is . VITALS: BP 102/64 Wt 164 lb (74.4kg) test: negative Nexplanon lot #: [id number] Exp date: 12/08/2023 UNIVERSAL PROTOCOL / SAFETY [...] of Care Visit completed when applicable. Janelle Ennis APRN.PRINTER MACHINE TECHNIQUE: Patient placed in supine position with [...] use backup contraception for 7 days. Janelle Ennis APRN.PRINTER MACHINE documented in this encounterSt. [facility]07-26-2022 Instructions* Patient Instructions* Tamiko Ortiz LPN - 01/01/2022 3:22 PM EDT [...] days to prevent . documented in this encounterSt. [facility] Of [facility]07-25-2022 History of Present illness Narrative* Karli Jacinto MD - 12/31/2021 3:03 PM EDT Utilization Management Manager offered: Patient declines. VISIT Ottoniel Osman is a 21 year old year old here for visit. Delivery Summary: ROS/ Recovery: Feeding: Bottle feeding problems: None Menses since delivery: n/a Menstrual pattern prior to : Regular periods [place] since delivery: Not resumed Depression: denies symptoms [...] external genitalia normal, normal Bartholin's glands, urethra, [place]'s glands, no vulvar lesions, no cervical lesions, [...] PRN Karli Jacinto MD documented in this encounterSt. [facility]07-11-2022 History of Present illness Narrative* Viky Stubbs APRN.CNM - 12/17/2021 3:10 PM EDT VISIT/ Problem Ottoniel Osman is a 21 year old year old here for an add on problem/ visit. She is 4 weeks post . She was in the shower this morning and saw a purple string hanging from vagina. She pulled on string and it came out. String was vaginal suture. She denies any bleeding. Havinga small amount of burning to vaginal area. [...] external genitalia normal, normal Bartholin's glands, urethra, [place]'s glands, no cervical lesions, good vaginal support, physiologic discharge present, normal appearing perineal body and perianal region, vaginal laceration well approximated, no erythema and tissue healing appropriately ASSESSMENT AND PLAN: 21 year old status post with normal course. Contraception plan: Nexplanon Follow up: already scheduled 6 week visit Viky Stubbs APRN.CNM documented in this encounterSt. [facility] Of [facility]07-11-2022 Miscellaneous Notes* Telephone Encounter - Tomasa Michaels RN - 12/17/2021 11:48 AM EDT Patient called and appointment scheduled. Tomasa Michaels RN * Telephone Encounter - Viky Stubbs APRN.CNM - 12/17/2021 11:41 AM EDT Yes! I can see her today as needed. Viky Stubbs APRN.CNM * Telephone Encounter - Tomasa Michaels RN - 12/17/2021 10:54 AM EDT Patient states she was in the shower [...] spot? Tomasa Michaels RN documented in this encounterSt. [facility]06-13-2022 History of Present illness Narrative* Rajwinder Marroquin RN - 11/19/2021 8:28 AM EDT Patient delivered via by Dr. Jacinto on 11/18/21 at [facility]. See OB history. Rajwinder Marroquin RN documented in this encounterSt. [facility] Of [facility] Hospital06-10-2022 Miscellaneous Notes* Quick Notes - Meri Chapman APRN.CNM - 11/16/2021 3:17 PM EDT RAUL-S: Ottoniel Osman is a 21 year old female [...] percentile Meri Chapman APRN.CNM documented in this encounterSt. [facility] Of [facility] Hospital06-10-2022 Instructions* Patient Instructions* Oralia Peraza MA - 11/16/2021 3:02 PM EDT SEQUENTIAL SCREENINGS The [facility] offers sequential screenings for women who are interested in screenings for chromosomal abnormalities and certain defects during a . The sequential screen combinesultrasound and blood tests to determine the risk [...] this testing. It will require an appointment withour certified bench jeweler technician. This is not an ultrasound performed [...] the above symptoms, contact our office at [phone] and ask to speak with anurse. After hours, you can call doctors registry at [phone] OR call [facility] at [phone] ask to have the doctor refrigeration person paged. If you consider this an emergency, dial 9-1-1 or go to your nearest emergency department. NEED HELP? Are you dealing with a violent or abusive relationship? Are you a victim of rape or sexual assult? Call [facility] ([place]) 24 hour Crisis Hotline: 626.528.2686 or 204-213-9313. MANUAL Your Guide to a Healthy manual is now on-line. Visit [email or web address] to download your free copy documented in this encounterSt. John Of God Hospital06-03-2022 Miscellaneous Notes* Quick Notes - Meri Chapman APRN.CNM - 11/09/2021 2:35 PM EDT RAUL-S: Ottoniel Osman is a 21 year old female who presents at 37w5d with KWAME:11/25/2021, by Ultrasound for a routine visit. Good FM. Denies headache, visual changes, chest pain, shortness of breath,vaginal bleeding, leakage of fluid, or dysuria. Feeling [...] time. Meri Chapman APRN.CNM documented in this encounterSt. John Of [facility] Hospital06-03-2022 Instructions* Patient Instructions* Oralia Peraza MA - 11/09/2021 2:20 PM EDT SEQUENTIAL SCREENINGS The [facility] offers sequential screenings for women who are interested in screenings for chromosomal abnormalities and certain defects during a . The sequential screen combinesultrasound and blood tests to determine the risk [...] this testing. It will require an appointment withour certified bench jeweler technician. This is not an ultrasound performed [...] the above symptoms, contact our office at [phone] and ask to speak with anurse. After hours, you can call doctors registry at [phone] OR call [facility] at [phone] ask to have the doctor refrigeration person paged. If you consider this an emergency, dial 91-6 or go to your nearest emergency department. NEED HELP? Are you dealing with a violent or abusive relationship? Are you a victim of rape or sexual assult? Call [facility] ([place]) 24 hour Crisis Hotline: 416.167.1054 or 504-491-2891. MANUAL Your Guide to a Healthy manual is now on-line. Visit [email or web address] to download your free copy documented in this encounterSt. John Of [facility] Hospital05-24-2022 Miscellaneous Notes* Quick Notes - Zeina Wing MD - 10/30/2021 3:29 PM EDT KJ - Patient seen urgently for pelvic [...] reviewed. Reassured on musculoskeletal pains in Zeina Wing MD documented in this encounterSt. John Of God Hospital05-24-2022 Instructions* Patient Instructions* Margaret Francis Ma - 10/30/2021 3:06 PM EDT SEQUENTIAL SCREENINGS The [facility] offers sequential screenings for women who are interested in screenings for chromosomal abnormalities and certain defects during a . The sequential screen combinesultrasound and blood tests to determine the risk [...] this testing. It will require an appointment withour certified bench jeweler technician. This is not an ultrasound performed [...] the above symptoms, contact our office at [phone] and ask to speak with anurse. After hours, you can call doctors registry at [phone] OR call [facility] at [phone] ask to have the doctor refrigeration person paged. If you consider this an emergency, dial 9-4-5 or go to your nearest emergency department. NEED HELP? Are you dealing with a violent or abusive relationship? Are you a victim of rape or sexual assult? Call [facility] ([place]) 24 hour Crisis Hotline: 474.304.9764 or 168-954-2378. MANUAL Your Guide to a Healthy manual is now on-line. Visit [email or web address] to download your free copy documented in this encounterSt. John Of God Hospital05-19-2022 Miscellaneous Notes* Quick Notes - Zeina Wing MD - 10/25/2021 2:22 PM EDT KJ - VB No. LOF No. CTXS [...] PTL precautions reviewed, Kick counts reviewed. Zeina Wing MD documented in this encounterSt. John Of God Hospital05-19-2022 Instructions* Patient Instructions* Margaret Francis Ma - 10/25/2021 2:17 PM EDT SEQUENTIAL SCREENINGS The [facility] offers sequential screenings for women who are interested in screenings for chromosomal abnormalities and certain defects during a . The sequential screen combinesultrasound and blood tests to determine the risk [...] this testing. It will require an appointment withour certified bench jeweler technician. This is not an ultrasound performed [...] the above symptoms, contact our office at [phone] and ask to speak with anurse. After hours, you can call doctors registry at [phone] OR call [facility] at [phone] ask to have the doctor refrigeration person paged. If you consider this an emergency, dial 9-1-9 or go to your nearest emergency department. NEED HELP? Are you dealing with a violent or abusive relationship? Are you a victim of rape or sexual assult? Call [facility] ([place]) 24 hour Crisis Hotline: 977.580.5096 or 719-818-3915. MANUAL Your Guide to a Healthy manual is now on-line. Visit [email or web address] to download your free copy documented in this encounterSt. [facility]-16-2022 Miscellaneous Notes* Telephone Encounter - Colette Rubio RN - 10/22/2021 9:41 AM EDT Disregard- already done. Health Dept form faxed. * Telephone Encounter - Colette Rubio RN - 10/22/2021 9:35 AM EDT 35w1d +Chlamydia. RX pending if appropriate. Pending Prescriptions Disp Refills AZITHROMYCIN 500 MG TABLET 2 tablet 0 Sig: Take 2 tablets by mouth one time only for 1 dose. documented in this encounterSt. John Of God Hospital05-16-2022 Miscellaneous Notes* Telephone Encounter - Karyna Roberts MD - 10/22/2021 8:18 AM EDT See result noted Azithromycin sent in documented in this encounterSt. [facility] Of [facility] Hospital05-13-2022 Miscellaneous Notes* Quick Notes - Karyna Roberts MD - 10/19/2021 10:43 AM EDT SW- Urgent add on visit. Pelvic pressure [...] up Karyna Roberts DO documented in this encounterSt. John Of God Hospital05-13-2022 Instructions* Patient Instructions* Margaret Francis Ma - 10/19/2021 10:16 AM EDT SEQUENTIAL SCREENINGS The [facility] offers sequential screenings for women who are interested in screenings for chromosomal abnormalities and certain defects during a . The sequential screen combinesultrasound and blood tests to determine the risk [...] this testing. It will require an appointment withour certified bench jeweler technician. This is not an ultrasound performed [...] the above symptoms, contact our office at [phone] and ask to speak with anurse. After hours, you can call doctors registry at [phone] OR call [facility] at [phone] ask to have the doctor refrigeration person paged. If you consider this an emergency, dial -[phone] or go to your nearest emergency department. NEED HELP? Are you dealing with a violent or abusive relationship? Are you a victim of rape or sexual assult? Call [facility] ([place]) 24 hour Crisis Hotline: 778.489.9749 or 505-795-2719. MANUAL Your Guide to a Healthy manual is now on-line. Visit [email or web address] to download your free copy documented in this encounterSt. John Of [facility] Hospital05-13-2022 Miscellaneous Notes* Telephone Encounter - Rajwinder Marroquin RN - 10/19/2021 9:08 AM EDT Scheduled for this morning with KJ. Rajwinder Marroquin RN documented in this encounterSt. John Of God Hospital05-05-2022 Miscellaneous Notes* Quick Notes - Yusra Martinez MD - 10/11/2021 2:43 PM EDT DM-Pt doing well. Denies vaginal Bleeding, Leaking [...] reviewed Yusra Villegas MD documented in this encounterSt. John Of [facility] Hospital05-05-2022 Instructions* Patient Instructions* Anne Marie Gilliam Ma - 10/11/2021 2:24 PM EDT SEQUENTIAL SCREENINGS [facility] offers sequential screenings for women who are interested in screenings for chromosomal abnormalities and certain defects during a . The sequential screen combinesultrasound and blood tests to determine the risk [...] this testing. It will require an appointment withour certified bench jeweler technician. This is not an ultrasound performed [...] the above symptoms, contact our office at [phone] and ask to speak with anurse. After hours, you can call doctors registry at [phone] OR call [facility] at [phone] ask to have the doctor refrigeration person paged. If you consider this an emergency, dial 3--9 or go to your nearest emergency department. NEED HELP? Are you dealing with a violent or abusive relationship? Are you a victim of rape or sexual assult? Call [facility] ([place]) 24 hour Crisis Hotline: 431.665.9496 or 931-579-8443. MANUAL Your Guide to a Healthy manual is now on-line. Visit [email or web address] to download your free copy documented in this encounterSt. John Of [facility] Hospital04-20-2022 Miscellaneous Notes* Quick Notes - Yusra Martinez MD - 09/26/2021 3:48 PM EDT DM-Pt doing well. Denies vaginal Bleeding, Leaking fluid, or regular Contractions. Pt reports good movement Physical Exam: Gen: female in no apparent distress Abd: soft, Gravid. Non tender to palpation. See flow sheet A/P: @ 31.3 weeks 1) RTO 2 weeks 2) Rescreen GC/Chlamydia at 36 weeks 3) Echo done- unchanged 4) Kick counts Yusra Villegas MD documented in this encounterSt. John Of [facility] Hospital04-20-2022 Instructions* Patient Instructions* Anne Marie Gilliam Ma - 09/26/2021 3:29 PM EDT SEQUENTIAL SCREENINGS [facility] offers sequential screenings for women who are interested in screenings for chromosomal abnormalities and certain defects during a . The sequential screen combinesultrasound and blood tests to determine the risk [...] this testing. It will require an appointment withour certified bench jeweler technician. This is not an ultrasound performed [...] the above symptoms, contact our office at [phone] and ask to speak with anurse. After hours, you can call doctors registry at [phone] OR call [facility] at [phone] ask to have the doctor refrigeration person paged. If you consider this an emergency, dial 9-1-1 or go to your nearest emergency department. NEED HELP? Are you dealing with a violent or abusive relationship? Are you a victim of rape or sexual assult? Call [facility] 24 hour Crisis Hotline: 719.690.9499 or 797-305-3563. MANUAL Your Guide to a Healthy manual is now on-line. Visit [email or web address] to download your free copy documented in this encounterSt. [facility] Of [facility] Hospital04-08-2022 Miscellaneous Notes* Telephone Encounter - Tamiko Ortiz LPN - 09/14/2021 9:16 AM EDT Patient scheduled documented in this encounterSt. John Of [facility] Hospital04-07-2022 Miscellaneous Notes* Telephone Encounter - Rajwinder Marroquin RN - 09/13/2021 2:03 PM EDT Patient notified. Health department form completed and faxed. Rajwinder Marroquin RN * Telephone Encounter - Yusra Martinez MD - 09/13/2021 10:52 AM EDT Needs treated along with partners- please tell her to avoid intercourse x 2 weeks after treatment. Needs re- tested at 36 weeks. * Telephone Encounter - Tamiko Ortiz LPN - 09/13/2021 9:34 AM EDT Patient was seen in L&D on 09/11/2021 and lab called stating that patient had a positive chlamydia. documented in this encounterSt. John Of God Hospital04-06-2022 History of Present illness Narrative* Breonna Serna MA - 09/12/2021 4:42 PM EDT Patient identified by name and date of . Ottoniel Osman presents today for a vaccination of Tdap. Patient denies an allergy to latex: yes Patient denies a severe (life-threatening) allergy to a previous dose of Tdap, DTP, DTaP, DT or Td vaccine. Yes Patient denies history of epilepsy or neurological problems: Yes Patient is afebrile and denies being moderately or severely ill: Yes Patient denies history of Guillain-Riverside Syndrome (a severe paralytic illness): Yes Tdap Adacel injection was given without incident. See immunizations for details of immunizations administered today. VIS sheet provided: Yes Provider Karyna Roberts DO was present in office at time of injection. Breonna Serna MA documented in this encounterSt. John Of [facility] Hospital04-06-2022 Miscellaneous Notes* Quick Notes - Karyna Roberts MD - 09/12/2021 4:26 PM EDT SW- No vb, lof. Good FM. She [...] wks Karyna Roberts DO documented in this encounterSt. John Of [facility] Hospital04-06-2022 Instructions* Patient Instructions* Breonna Serna MA - 09/12/2021 4:08 PM EDT SEQUENTIAL SCREENINGS [facility] offers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 normal first teen in first trimester 08/14/2017 05/04/2018 Overview: 11/04/17 - patient on house arrest - KJ 10/21/17 - patient very stressed over being in shelter for 90 days - Chlamydia trachomatis infect [...] Overview: 07/03/2017 Patient states she went to [facility] for pelvic pain 06/26/2017. She denies any bleeding or pain since then. Upon reviewof [facility] records quantitative HCG was 57962. Ultrasound revealed gestational sac with no demonstrated pole @ 6w1d. Discussed with Dr Wing. Quantitative HCG ordered. Patient given miscarriage precautions. She is to call/come in if pain reocurrs, the development of bleeding or PRN problems. Dysmenorrhea 05/31/2013 04/23/2021 Fatigue 05/31/2013 04/23/2021 Headache(784.0) 04/28/2011 04/23/2021 Short stature 08/14/2017 documented as of this encounter (statuses as of 10/11/2021) [facility]03-08-2018 History of Past illness Narrative* Problem Noted Date Resolved Date Supervision of normal first teen in first trimester 08/14/2017 05/04/2018 Overview: 11/04/17 - patient on house arrest - KJ 10/21/17 - patient very stressed over being in shelter for 90 days - Chlamydia trachomatis infect [...] 05/09/2017 . She sees a counselor at [facility]. Discussed increased risks of depression during and and importance of reporting the development or worsening of symptoms should they occur.Pt states she had suicidal thoughts in the past but none x 2 months. TKRN Patient requested diagnostic testing 07/03/2017 02/20/2018 Overview: 07/03/2017Patient desires nuchal ultrasound. TKRN Pelvic pain in 07/03/2017 018 Overview: 07/03/2017 Patient states she went to [facility] for pelvic pain 06/26/2017. She denies any bleeding or pain since then. Upon reviewof [facility] records quantitative HCG was 47746. Ultrasound revealed gestational sac with no demonstrated pole @ 6w1d. Discussed with Dr Wing. Quantitative HCG ordered. Patient given miscarriage precautions. She is to call/come in if pain reocurrs, the development of bleeding or PRN problems. Dysmenorrhea 05/31/2013 04/23/2021 Fatigue 05/31/2013 04/23/2021 Headache(784.0) 04/28/2011 04/23/2021 Short stature 08/14/2017 documented as of this encounter (statuses as of 10/12/2021) [facility]03-08-2018 History of Past illness Narrative* Problem Noted Date Resolved Date Supervision of normal first teen in first trimester 08/14/2017 05/04/2018 Overview: 11/04/17 - patient on house arrest - KJ 10/21/17 - patient very stressed over being in shelter for 90 days - KJ Chlamydia trachomatis [...] 05/09/2017 . She sees a counselor at [facility]. Discussed increased risks of depression during and and importance of reporting the development or worsening of symptoms should they occur.Pt states she had suicidal thoughts in the past but none x 2 months. TKRN Patient requested diagnostic testing 07/03/2017 02/20/2018 Overview: 07/03/2017Patient desires nuchal ultrasound. TKRN Pelvic pain in 07/03/2017 018 Overview: 07/03/2017 Patient states she went to [facility] for pelvic pain 06/26/2017. She denies any bleeding or pain since then. Upon reviewof [facility] records [place] HCG was 02811. Ultrasound revealed gestational sac with no demonstrated pole @ 6w1d. Discussed with Dr Wing. Quantitative HCG ordered. Patient given miscarriage precautions. She is to call/come in if pain reocurrs, the development of bleeding or PRN problems. Dysmenorrhea 05/31/2013 04/23/2021 Fatigue 05/31/2013 04/23/2021 Headache(784.0) 04/28/2011 04/23/2021 Short stature 08/14/2017 documented as of this encounter (statuses as of 10/19/2021) [facility]03-[facility]2018 History of Past illness Narrative* Problem Noted Date Resolved Date Supervision of normal first teen in first trimester 08/14/2017 05/04/2018 Overview: 11/04/17 - patient on house arrest - KJ 10/21/17 - patient very stressed over being in shelter for 90 days - KJ Chlamydia trachomatis [...] Overview: 07/03/2017 Patient states she went to [facility] for pelvic pain 06/26/2017. She denies any bleeding or pain since then. Upon reviewof [facility] records quantitative HCG was 43104. Ultrasound revealed gestational sac with no demonstrated pole @ 6w1d. Discussed with Dr Wing. Quantitative HCG ordered. Patient given miscarriage precautions. She is to call/come in if pain reocurrs, the development of bleeding or PRN problems. Dysmenorrhea 05/31/2013 04/23/2021 Fatigue 05/31/2013 04/23/2021 Headache(784.0) 04/28/2011 04/23/2021 Short stature 08/14/2017 documented as of this encounter (statuses as of 10/19/2021) [facility]03[facility] History of Past illness Narrative* Problem Noted Date Resolved Date Supervision of normal first teen in first trimester 08/14/2017 05/04/2018 Overview: 11/04/17 - patient on house arrest - KJ 10/21/17 - patient very stressed over being in shelter for 90 days - KJ Chlamydia trachomatis [...] 05/09/2017 . She sees a counselor at [facility]. Discussed increased risks of depression during and and importance of reporting the development or worsening of symptoms should they occur.Pt states she had suicidal thoughts in the past but none x 2 months. TKRN Patient requested diagnostic testing 07/03/2017 02/20/2018 Overview: 07/03/2017Patient desires nuchal ultrasound. TKRN Pelvic pain in 07/03/2017 018 Overview: 07/03/2017 Patient states she went to [facility] for pelvic pain 06/26/2017. She denies any bleeding or pain since then. Upon reviewof [facility] records quantitative HCG was 46666. Ultrasound revealed gestational sac with no demonstrated pole @ 6w1d. Discussed with Dr Wing. Quantitative HCG ordered. Patient given miscarriage precautions. She is to call/come in if pain reocurrs, the development of bleeding or PRN problems. Dysmenorrhea 05/31/2013 04/23/2021 Fatigue 05/31/2013 04/23/2021 Headache(784.0) 04/28/2011 04/23/2021 Short stature 08/14/2017 documented as of this encounter (statuses as of 10/22/2021) [facility] History of Past illness Narrative* Problem Noted Date Resolved Date Supervision of normal first teen in first trimester 08/14/2017 05/04/2018 Overview: 11/04/17 - patient on house arrest - KJ 10/21/17 - patient very stressed over being in shelter for 90 days - KJ Chlamydia trachomatis [...] 05/09/2017 . She sees a counselor at [facility]. Discussed increased risks of depression during and and importance of reporting the development or worsening of symptoms should they occur.Pt states she had suicidal thoughts in the past but none x 2 months. TKRN Patient requested diagnostic testing 07/03/2017 02/20/2018 Overview: 07/03/2017Patient desires nuchal ultrasound. TKRN Pelvic pain in 07/03/2017 018 Overview: 07/03/2017 Patient states she went to [facility] for pelvic pain 06/26/2017. She denies any bleeding or pain since then. Upon reviewof [facility] records quantitative HCG was 93093. Ultrasound revealed gestational sac with no demonstrated pole @ 6w1d. Discussed with Dr Wing. Quantitative HCG ordered. Patient given miscarriage precautions. She is to call/come in if pain reocurrs, the development of bleeding or PRN problems. Dysmenorrhea 05/31/2013 04/23/2021 Fatigue 05/31/2013 04/23/2021 Headache(784.0) 04/28/2011 04/23/2021 Short stature 08/14/2017 documented as of this encounter (statuses as of 10/22/2021) [facility] History of Past illness Narrative* Problem Noted Date Resolved Date Supervision of normal first teen in first trimester 08/14/2017 05/04/2018 Overview: 11/04/17 - patient on house arrest - KJ 10/21/17 - patient very stressed over being in shelter for 90 days - KJ Chlamydia trachomatis [...] 05/09/2017 . She sees a counselor at [facility]. Discussed increased risks of depression during and and importance of reporting the development or worsening of symptoms should they occur.Pt states she had suicidal thoughts in the past but none x 2 months. TKRN Patient requested diagnostic testing 07/03/2017 02/20/2018 Overview: 07/03/2017Patient desires nuchal ultrasound. TKRN Pelvic pain in 07/03/2017 018 Overview: 07/03/2017 Patient states she went to [facility] for pelvic pain 06/26/2017. She denies any bleeding or pain since then. Upon reviewof [facility] records [place] HCG was 25653. Ultrasound revealed gestational sac with no demonstrated pole @ 6w1d. Discussed with Dr Wing. Quantitative HCG ordered. Patient given miscarriage precautions. She is to call/come in if pain reocurrs, the development of bleeding or PRN problems. Dysmenorrhea 05/31/2013 04/23/2021 Fatigue 05/31/2013 04/23/2021 Headache(784.0) 04/28/2011 04/23/2021 Short stature 08/14/2017 documented as of this encounter (statuses as of 10/22/2021) [facility] History of Past illness Narrative* Problem Noted Date Resolved Date Supervision of normal first teen in first trimester 08/14/2017 05/04/2018 Overview: 11/04/17 - patient on house arrest - KJ 10/21/17 - patient very stressed over being in shelter for 90 days - KJ Chlamydia trachomatis [...] Overview: 07/03/2017 Patient states she went to [facility] for pelvic pain 06/26/2017. She denies any bleeding or pain since then. Upon reviewof [facility] records quantitative HCG was 93865. Ultrasound revealed gestational sac with no demonstrated pole @ 6w1d. Discussed with Dr Wing. Quantitative HCG ordered. Patient given miscarriage precautions. She is to call/come in if pain reocurrs, the development of bleeding or PRN problems. Dysmenorrhea 05/31/2013 04/23/2021 Fatigue 05/31/2013 04/23/2021 Headache(784.0) 04/28/2011 04/23/2021 Short stature 08/14/2017 documented as of this encounter (statuses as of 10/25/2021) [facility] History of Past illness Narrative* Problem Noted Date Resolved Date Supervision of normal first teen in first trimester 08/14/2017 05/04/2018 Overview: 11/04/17 - patient on house arrest - KJ 10/21/17 - patient very stressed over being in shelter for 90 days - KJ Chlamydia trachomatis [...] Overview: 07/03/2017 Patient states she went to [facility] for pelvic pain 06/26/2017. She denies any bleeding or pain since then. Upon reviewof [facility] records quantitative HCG was 86005. Ultrasound revealed gestational sac with no demonstrated pole @ 6w1d. Discussed with Dr Wing. Quantitative HCG ordered. Patient given miscarriage precautions. She is to call/come in if pain reocurrs, the development of bleeding or PRN problems. Dysmenorrhea 05/31/2013 04/23/2021 Fatigue 05/31/2013 04/23/2021 Headache(784.0) 04/28/2011 04/23/2021 Short stature 08/14/2017 documented as of this encounter (statuses as of 10/30/2021) [facility] History of Past illness Narrative* Problem Noted Date Resolved Date Supervision of normal first teen in first trimester 08/14/2017 05/04/2018 Overview: 11/04/17 - patient on house arrest - 10/21/17 - patient very stressed over being in shelter for 90 days - Chlamydia trachomatis infect [...] 05/09/2017 . She sees a counselor at [facility]. Discussed increased risks of depression during and and importance of reporting the development or worsening of symptoms should they occur.Pt states she had suicidal thoughts in the past but none x 2 months. TKRN Patient requested diagnostic testing 07/03/2017 02/20/2018 Overview: 07/03/2017Patient desires nuchal ultrasound. TKRN Pelvic pain in 07/03/2017 018 Overview: 07/03/2017 Patient states she went to [facility] for pelvic pain 06/26/2017. She denies any bleeding or pain since then. Upon reviewof [facility] records quantitative HCG was 00252. Ultrasound revealed gestational sac with no demonstrated pole @ 6w1d. Discussed with Dr Wing. Quantitative HCG ordered. Patient given miscarriage precautions. She is to call/come in if pain reocurrs, the development of bleeding or PRN problems. Dysmenorrhea 05/31/2013 04/23/2021 Fatigue 05/31/2013 04/23/2021 Headache(784.0) 04/28/2011 04/23/2021 Short stature 08/14/2017 documented as of this encounter (statuses as of 10/31/2021) [facility] History of Past illness Narrative* Problem Noted Date Resolved Date Supervision of normal first teen in first trimester 08/14/2017 05/04/2018 Overview: 11/04/17 - patient on house arrest - KJ 10/21/17 - patient very stressed over being in shelter for 90 days - KJ Chlamydia trachomatis [...] Overview: 07/03/2017 Patient states she went to [facility] for pelvic pain 06/26/2017. She denies any bleeding or pain since then. Upon reviewof [facility] records quantitative HCG was 98640. Ultrasound revealed gestational sac with no demonstrated pole @ 6w1d. Discussed with Dr Wing. Quantitative HCG ordered. Patient given miscarriage precautions. She is to call/come in if pain reocurrs, the development of bleeding or PRN problems. Dysmenorrhea 05/31/2013 04/23/2021 Fatigue 05/31/2013 04/23/2021 Headache(784.0) 04/28/2011 04/23/2021 Short stature 08/14/2017 documented as of this encounter (statuses as of 11/09/2021) [facility] History of Past illness Narrative* Problem Noted Date Resolved Date Supervision of normal first teen in first trimester 08/14/2017 05/04/2018 Overview: 11/04/17 - patient on house arrest - KJ 10/21/17 - patient very stressed over being in shelter for 90 days - KJ Chlamydia trachomatis [...] 05/09/2017 . She sees a counselor at [facility]. Discussed increased risks of depression during and and importance of reporting the development or worsening of symptoms should they occur.Pt states she had suicidal thoughts in the past but none x 2 months. TKRN Patient requested diagnostic testing 07/03/2017 02/20/2018 Overview: 07/03/2017Patient desires nuchal ultrasound. TKRN Pelvic pain in 07/03/2017 018 Overview: 07/03/2017 Patient states she went to [facility] for pelvic pain 06/26/2017. She denies any bleeding or pain since then. Upon reviewof [facility] records quantitative HCG was 98885. Ultrasound revealed gestational sac with no demonstrated pole @ 6w1d. Discussed with Dr Wing. Quantitative HCG ordered. Patient given miscarriage precautions. She is to call/come in if pain reocurrs, the development of bleeding or PRN problems. Dysmenorrhea 05/31/2013 04/23/2021 Fatigue 05/31/2013 04/23/2021 Headache(784.0) 04/28/2011 04/23/2021 Short stature 08/14/2017 documented as of this encounter (statuses as of 11/19/2021) [facility] History of Past illness Narrative* Problem Noted Date Resolved Date Supervision of normal first teen in first trimester 08/14/2017 05/04/2018 Overview: 11/04/17 - patient on house arrest - KJ 10/21/17 - patient very stressed over being in shelter for 90 days - KJ Chlamydia trachomatis [...] 05/09/2017 . She sees a counselor at [facility] [place]. Discussed increased risks of depression during and and importance of reporting the development or worsening of symptoms should they occur.Pt states she had suicidal thoughts in the past but none x 2 months. TKRN Patient requested diagnostic testing 07/03/2017 02/20/2018 Overview: 07/03/2017Patient desires nuchal ultrasound. TKRN Pelvic pain in 07/03/2017 018 Overview: 07/03/2017 Patient states she went to [facility] for pelvic pain 06/26/2017. She denies any bleeding or pain since then. Upon reviewof [facility] records [place] HCG [place] 90067. Ultrasound revealed gestational sac with no demonstrated pole @ 6w1d. Discussed with Dr Wing. Quantitative HCG ordered. Patient given miscarriage precautions. She is to call/come in if pain reocurrs, the development of bleeding or PRN problems. Dysmenorrhea 05/31/2013 04/23/2021 Fatigue 05/31/2013 04/23/2021 Headache(784.0) 04/28/2011 04/23/2021 Short stature 08/14/2017 documented as of this encounter (statuses as of 11/21/2021) [facility] History of Past illness Narrative* Problem Noted Date Resolved Date Supervision of normal first teen in first trimester 08/14/2017 05/04/2018 Overview: 11/04/17 - patient on house arrest - KJ 10/21/17 - patient very stressed over being in shelter for 90 days - KJ Chlamydia trachomatis [...] Overview: 07/03/2017 Patient states she went to [facility] for pelvic pain 06/26/2017. She denies any bleeding or pain since then. Upon reviewof [facility] records quantitative HCG was 10967. Ultrasound revealed gestational sac with no demonstrated pole @ 6w1d. Discussed with Dr Wing. Quantitative HCG ordered. Patient given miscarriage precautions. She is to call/come in if pain reocurrs, the development of bleeding or PRN problems. Dysmenorrhea 05/31/2013 04/23/2021 Fatigue 05/31/2013 04/23/2021 Headache(784.0) 04/28/2011 04/23/2021 Short stature 08/14/2017 documented as of this encounter (statuses as of 11/22/2021) [facility] History of Past illness Narrative* Problem Noted Date Resolved Date Supervision of normal first teen in first trimester 08/14/2017 05/04/2018 Overview: 11/04/17 - patient on house arrest - KJ 10/21/17 - patient very stressed over being in shelter for 90 days - KJ Chlamydia trachomatis [...] Overview: 07/03/2017 Patient states she went to [facility] for pelvic pain 06/26/2017. She denies any bleeding or pain since then. Upon reviewof [facility] records [place] HCG [place] [address]307. Ultrasound revealed gestational sac with no demonstrated pole @ 6w1d. Discussed with Dr Wing. Quantitative HCG ordered. Patient given miscarriage precautions. She is to call/come in if pain reocurrs, the development of bleeding or PRN problems. Dysmenorrhea 05/31/2013 04/23/2021 Fatigue 05/31/2013 04/23/2021 Headache(784.0) 04/28/2011 04/23/2021 Short stature 08/14/2017 documented as of this encounter (statuses as of 11/27/2021) [facility] S[facility]ay [facility] October 15, 2022 4:39pm Note Date/Time October 15, 2022 4:36pm [facility] Medical Records Department [address] [place] [address] Discharge Summary 10/15/22 1633 MR#: [id number] Acct: [id number] Name: OTTONIEL OSMAN LIA Rep #:[id number] : 2000 22 From: Roberto Carlos martinez MD PCP: Care Physician,No Primary Status :ADM IN [id number] Prov[facility] Date of Admission: 10/11/22 Primary Care Physician: No Primary Care Phys Reason For Visit: DIVERTICULITIS Diagnosis Discharge Diagnosis (1) Diverticulitis: Status: Acute Code(s): K57.92 - Diverticulitis of intestine, part unspecified, without perforation or abscess without bleeding Plan: Patient appears more comfortable today. I will advance her to clear liquids. She can advance diet as tolerated. I will stop her IV fluids. We will try to transition her more to oral medications. Roberto Carlos Sesay MD Pager: [facility] [address] [place] [address], [address] [place] [address] Office: Medications at Discharge Home Medications etonogestrel 68 mg subdermal implant (Nexplanon) 68 mg subdermal Check with primary doctor 10/11/22 acetaminophen 325 mg tablet 650 mg PO Q4H PRN PRN Pain 1-10 Or Fever #0 tabs 10/15/22 ibuprofen 600 mg tablet 600 mg PO Q6H PRN PRN Pain 1-10 Or Fever #0 tabs 10/15/22 oxycodone 5 mg tablet 5 - 10 mg PO Q4H PRN PRN Pain Score 4-10 5 days #20 tabs 10/15/22 Hospital Course Operations colectomy Summary of Care Provided Hospital Course: Patient was admitted with inflammation of the cecum. It did not improve with conservative measures and she underwent ileocecectomy. After the procedure she was kept NPO until passing flatus. Once her pain was controlled by PO meds and she was tolerating diet she was discharged home Weight / BMI Weight Weight: 148 lb 7 oz Body Mass Index (BMI) 25.4 ABG / Lab / Microbiology Data Result Diagrams: 10/15/22 06:18 10/15/22 06:18 Laboratory: Laboratory Results - last 24 hr 10/15/22 06:18: WBC 8.5, RBC 3.78 L, Hgb 11.1 L, Hct 33.7 L, MCV 89.2, MCH 29.4,MCHC 32.9, RDW Std Deviation 40.7, RDW Coeff of Melchor 12.3, Plt Count 170, MPV 11.7, Immature Gran % (Auto) 0.200, Neut % (Auto) 64.6, Lymph % (Auto) 23.8, Davison % (Auto) 8.5, Eos % (Auto) 2.5, Baso % (Auto) 0.4, Absolute Neuts (auto) 5.5, Absolute Lymphs (auto) 2.03, Nucleated RBC % 0 10/15/22 06:18: Sodium 138, Potassium 3.6, Chloride 110 H, Carbon Dioxide 19.0 L, Anion Gap 9, BUN 6 L, Creatinine 0.66, Estim Creat Clear Calc 114.48, Est GFR (MDRD) Af Amer 143, Est GFR (MDRD) Non-Af 118, BUN/Creatinine Ratio 9.1 L, Glucose 70 L, Calcium 8.7 D/C Instructions Discharge Diet: Light diet - advance as tolerated Discharge Activity: May Drive (when off narcotics) and May Shower Lifting Restricted to (Lbs): 15 Lifting Restrictions: 15 lbs for 4 weeks Call your doctor if your incision/area has: Continuous Slow Oozing, Sudden Increased Bleeding, Increased Pain/ Swelling, Increased Redness, Foul Smelling Discharge and Swelling at the incision site Call your doctor if you observe: Fever of 101 or Higher and Inability to have a bowel movement Remove Dressing in: 1 day (Remove bandage tomorrow, remove steri strips in 7-10 days) Cleanse incision/area with: Soap & Water Please Follow Up With: Roberto Carlos Sesay MD When: Call to make 1 week follow up appt [phone] Meaningful Use Info Meaningful Use Diagnoses (Choose all that apply): None applicable Discharge Plan Admission Admit Date/Time: 10/11/22 23:31 Attending Provider: Roberto Carlos Sesay Primary Care Provider: Joi Emerson Primary Discharge Orders/Prescriptions Prescriptions: New acetaminophen 325 mg Tablet 650 mg PO Q4H PRN PRN (Reason: Pain 1-10 Or Fever) Qty: 0 0RF ibuprofen 600 mg Tablet 600 mg PO Q6H PRN PRN (Reason: Pain 1-10 Or Fever) Qty: 0 0RF oxycodone 5 mg Tablet 5 - 10 mg PO Q4H PRN PRN (Reason: Pain Score 4-10) 5 Days Qty: 20 0RF Continued Nexplanon 68 mg Implant 68 mg SUBDERMAL Referrals / Follow Up: Care PhysicianJoi Primary [Primary Care Provider] - Disposition Disposition (needs filled in before D/C Order can be placed): Home, Self Care 10/15/22 2311 <Electronically signed by Roberto Carlos Sesay MD> Cosigner Signature (if applicable): CC: Dr. Roberto Carlos Sesay MD; No Primary Care Physician~ Signed [facility] Work Phone: Evaluation noteNo assessment information available [facility] Work Phone: Evaluation note* Diagnosis 29 weeks gestation of - Primary state, incidental Encounter for supervision of other normal in second trimester documented in this encounter [facility] note* Diagnosis Supervision of high risk in third trimester- Primary Unspecified high-risk 31 weeks gestation of state, incidental [facility]* Diagnosis History of macrosomia in in prior , currently in third trimester- Primary 33 weeks gestation of state, incidental Uterine size-date discrepancy in third trimester Uterine size date discrepancy, antepartum condition or complication [facility] Diagnosis Uterine size date discrepancy, third trimester- Primary 33 weeks gestation of state, incidental [facility] Diagnosis Supervision of high risk in third trimester- Primary Unspecified high-risk 34 weeks gestation of state, incidental Pelvic pressure in Other specified complication, antepartum [facility] Diagnosis Chlamydial infection- Primary Unspecified chlamydial infection, in conditions classified elsewhere and of unspecified site [facility] Diagnosis Supervision of high risk in third trimester- Primary Unspecified high-risk 35 weeks gestation of state, incidental [facility] Diagnosis Supervision of high risk in third trimester- Primary Unspecified high-risk 36 weeks gestation of state, incidental Pelvic pressure in Other specified complication, antepartum [facility] Diagnosis 37 weeks gestation of - Primary state, incidental Marijuana use Cannabis abuse, unspecified [facility]* Diagnosis Onset Date Resolution Status Headache acute Uterine contractions during acute 39 weeks gestation of acute Lactating mother acute Multigravida in third trimester acute (spontaneous vaginal delivery) acute [facility] Work Phone: Evaluation note* Diagnosis 38 weeks gestation of - Primary state, incidental [facility]* Diagnosis care and examination- Primary Routine follow-up [facility]* Diagnosis care and examination- Primary Routine follow-up [facility]* Diagnosis Insertion of implantable subdermal contraceptive- Primary documented in this encounter [facility] note* Diagnosis Vaginal discharge- Primary Leukorrhea, not specified as infective Abscess of right axilla Cellulitis and abscess of upper arm and forearm [facility]* Diagnosis Urinary frequency- Primary documented in this encounter [facility] note* Diagnosis Acute suppr otitis media w/o spon rupt ear drum, right ear- Primary URI, acute Acute upper respiratory infections of unspecified site [facility]* Diagnosis Onset Date Resolution Status Diverticulitis acute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 Federal Confidentiality of Alcohol and Drug Abuse Patient Records regulations: The Federal rules restrict any use of the information to criminally investigate or prosecute any alcohol or drug abuse patient.[facility] ClinicIn the event this information is protected by the Federal Confidentiality of Alcohol and Drug Abuse Patient Records regulations: The Federal rules restrict any use of the information to criminally investigate or prosecute any alcohol or drug abuse patient.[facility] HospitalIn the event this information is protected by the Federal Confidentiality of Alcohol and Drug Abuse Patient Records regulations: The Federal rules restrict any use of the information to criminally investigate or prosecute any alcohol or drug abuse patient.[facility] HospitalIn the event this information is protected by the Federal Confidentiality of Alcohol and Drug Abuse Patient Records regulations: The Federal rules restrict any use of the information to criminally investigate or prosecute any alcohol or drug abuse patient.[facility] HospitalIn the event this information is protected by the Federal Confidentiality of Alcohol and Drug Abuse Patient Records regulations: The Federal rules restrict any use of the information to criminally investigate or prosecute any alcohol or drug abuse patient.[facility] HospitalIn the event this information is protected by the Federal Confidentiality of Alcohol and Drug Abuse Patient Records regulations: The Federal rules restrict any use of the information to criminally investigate or prosecute any alcohol or drug abuse patient.[facility] HospitalIn the event this information is protected by the Federal Confidentiality of Alcohol and Drug Abuse Patient Records regulations: The Federal rules restrict any use of the information to criminally investigate or prosecute any alcohol or drug abuse patient.[facility] HospitalIn the event this information is protected by the Federal Confidentiality of Alcohol and Drug Abuse Patient Records regulations: The Federal rules restrict any use of the information to criminally investigate or prosecute any alcohol or drug abuse patient.[facility] Reason for Visit (unrecogniz ed section and content) Reason Onset Date Comments Care 09/12/2021 Reason Comments Results + STD Reason Onset Date Comments Care 09/26/2021 Reason Onset Date Comments Care 10/11/2021 Reason Comments US Specialty Diagnoses / Procedures Referred By Carolina t Referred To [facility] Diagnoses 33 weeks gestation of Uterine size-date discrepancy in third trimester History of macrosomia in in prior , currently in third trimester Procedures OBSTETRIC ULTRASOUND WHI US PREG UTERUS AFTER 1ST TRIMEST GESTATION Yusra Mora MD [address] [place] [address] [address] Referral ID Status Reason Start Date Expiration Date V isits Requested Visits Authorized [id number] Closed Auto-Generate d Referral 10/11/2021 10/11/2022 1 [...] Referred By Carolina colmenares Referred To Contact [facility] Diagnoses Nexplanon insertion Encounter for surveillance of implantable subdermal contraceptive Procedures NEXPLANON INSERTION ETONOGESTREL IMPLANT SYSTEM INSERT DRUG IMPLANT DEVICE REMOVAL NON-BIODEGRADABLE DRUG DELIVERY IMPLANT Karli Jacinto MD [address] [place] [address] [address] [place] [address] Referral ID Status Reason Start Date Expiration Date Visits Requested Visits Authorized [id number] Authorized Auto-Generat ed Referral 12/19/2021 06/08/2022 2 [...] Problem Burning and stomach pain x3 days Reason Comments Urinary Problem Reason Comments Results Orders Reason Comments UTI Frequency, nausea, b urning x this AM Reason Comments STD Wants full panel std tests, no symptoms Reason Comments Trauma Stepped on nail with right foot x 1 day Reason Comments [facility] Teams (unrecognized sec tion and content) 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 Martín Lux MD Emergency Provider Active Dr. Roberto Carlos Sesay MD Attending Provider Active Team Status: Active Member Role Status Dates No Primary Care Physician Primary Care Provider Active Dr. Martín Lux MD Emergency Provider Active Dr. Roberto Carlos Sesay MD Admit Provider, Attending Provider Active Team Status: Active Member Role Status Dates No Primary Care Physician Primary Care Provider Active Dr. Martín Lux MD Emergency Provider Active Dr. Roberto Carlos Sesay MD Admit Provid er, Attending Provider, Other Provider Active Team Status: Inactive Member Role Status Dates No Primary Care Physician Primary Care Provider Active Dr. Martín Lux MD Emergency Provider Active Dr. Roberto Carlos Sesay MD Admit Provider, Attending Provider Active Team Status: Inactive Member Role Status Dates No Primary Care Physician Primary Care Provider Active Dr. Roberto Carlos Sesay MD Attending Provider, Referr ing Provider Active Team Status: Inactive Member Role Status Dates No Primary Care Physician Primary Care Provider Active Dr. Kirby Camara DO Emergency Provider Active Team Status: Inactive Member Role Status Dates No Primary Care Physician Primary Care Provider Active Dr. Ever Hanks DO Attending Provider, Emergency Provider Active Team Status: Inactive Member Role Status Dates No Primary Care Physician Primary Care Provider Active Ed Physician Provider Emergency Provider Active Team Status: Inactive Member Role Status Dates No Primary Care Physician Primary Care Provider Active Dr. Horace Frausto MD Emergency Provider Active Team Status: Inactive Member Role Status Dates No Primary Care Physician Primary Care Provider Active Ed Physician Provider Attending Provider, Emergency Pr ovider Active Team Status: Active Member Role Status Dates No Primary Care Physician Primary Care Provider Active Team Status: Inactive Member Role Status Dates No Primary Care Physician Primary Care Provider Active Start: June 25, 2024 End: June 25, 2024 Nigel Rivera MD Attending Provider Active Star t: June 25, 2024 End: June 25, 2024 Nigel Rivera MD Emergency Provider Active Star t: June 25, 2024 End: June 25, 2024 Team Status: Inactive Member Role Status Dates No Primary Care Physician Primary Care Provider Active Start: September 14, 2024 End: September 14, 2024 Dr. Phong Birch DO Emergency Provider Active S tart: September 14, 2024 End: September 14, 2024 FOR RECORDS PERTAINING TO PATIENTS WHO ARE [...] BE BASED ON THE PRIMARY CLINICAL RECORDS. [facility] [employer] [facility]. provides no warranty or guarantee of the accuracy or completeness of information in this document.
--- NOTE | 2025-01-01 09:50 | RAD_ITS ---
PROCEDURE: CHEST PA AND LATERAL 01/01/2025 REASON FOR EXAM: COUGH TECHNIQUE: CHEST PA AND LATERAL COMPARISON: 09/27/2020. FINDINGS: The heart is normal in size. The lungs are clear. No acute osseous abnormalities. RAD/Chest PA and Lateral IMPRESSION: No acute cardiopulmonary abnormalities. Reading Location: [id number]
[2025-01-01 10:08] VITALS: PULSE 91; RESP 16
== END 2025-01-01 10:58 | disposition home or self-care (01) ==
PROVIDERS: Emergency Provider Emergency Medicine; Visit Provider Emergency Medicine
DX: J02.9 Acute pharyngitis, unspecified (principal); J40 Bronchitis, not specified as acute or chronic; R06.2 Wheezing; F17.290 Nicotine dependence, other tobacco product, uncomplicated; Z90.49 Acquired absence of other specified parts of digestive tract
CPT/HCPCS: 71046; 94640; 99282

== ENCOUNTER 2025-01-15 22:12 | Emergency (ER) | payer MEDICAID, SELFPAY ==
[2025-01-15 22:14] VITALS: BP 130/85; PULSE 106; RESP 18; TEMP 36.6; O2SAT 96; BMI 24.2
--- OUTSIDE RECORDS SUMMARY | 2025-01-15 22:26 | XMS RPT_ITS | CCD ---
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 have another abnormal pap smear, you may need closer follow up for longer or you may need additional treatment. By making a few lifestyle changes after the procedure, you can help protect the health of your cervix: - Have regular pelvic exams and pap smears as ordered by your doctor. - Stop smoking as smoking increases your risk of developing a cancer of the cervix - If you have more than one sexual partner, limit your number of partners and use condoms to reduce your risks of STDs. If you have any additional questions, please contact your doctor's office. Referr (more content not included)... Normal [facility] UA DIP, URINE (POC)on 2024 BILIRUBIN UA (POCT) Negative Negative [facility] CLARITY UA (POCT) Clear [facility] COLOR UA (POCT) Yellow [facility] GLUCOSE UA (POCT) Negative Negative mg/dL [facility] Hemoglobin Ql (U) Negative Negative [facility] Interpretation and review of laboratory results Abnormal [facility] KETONE UA (POCT) Negative Negative mg/dL [facility] LEUKOCYTES UA (POCT) Negative Negative [facility] NITRITE UA (POCT) Negative Negative [facility] PH UA (POCT) 6.5 4.5 - 8.0 [facility] Protein Ql (U) 100 mg/dL Abnormal Negative [facility] SPECIFIC GRAVITY UA (POCT) >=1.030 1.005 - 1.030 [facility] UROBILINOGEN UA (POCT) 0.2 Normal E.U./d L [facility] Location:[facility] [address] POINT OF CARE [facility] UA DIP,URINE HCG (POC)on Beta HCG ( test) Ql (U) Negative Negative [facility] Comment on above: Location:[facility] [address] [place] [address] Classification Officer (POCT) Internal QC OK [facility] Location:[facility], [address] [place] [address] POINT OF CARE [facility] Chest PA and Lateralon 01-01 Chest PA and Lateral [facility] Imaging Services [address] [place], [place] [address] Chest PA and Lateral MR#: [id number] Acct: [id number] Name: OTTONIEL OSMAN [facility] Rep #: [id number] : 2000 F 24 From: Mina Galicia MD PCP: Care Physician,No Primary Status: REG ER Study: Chest PA and Lateral Date of Exam: 01/01/25 Exam# [id number] Ordering Dr: Mona Watts DO PROCEDURE: CHEST PA AND LATERAL 01/01/2025 REASON FOR EXAM: COUGH TECHNIQUE: CHEST PA AND LATERAL COMPARISON: 09/27/2020. FINDINGS: The heart is normal in size. The lungs are clear. No acute osseous abnormalities. RAD/Chest PA and Lateral IMPRESSION: No acute cardiopulmonary abnormalities. Reading Location: [id number] CC: Dr. Mona Watts DO; No Primary Care Physician Mash Filter Press Operator: Signed Normal [facility] Emergency Department Summary on 01-01-2025 Emergency Department Summary [facility] Medical Records Department [address] [place] [address] Emergency Department Summary 01/01/25 MR#: [id number] Acct: [id number] Name: OTTONIEL OSMAN LIA Rep #: [id number] : 2000 24 From: Mona Watts DO PCP: Care Physician,No Primary Status:REG ER Location: ED HPI History of Present Illness Chief Complaint: Sore Throat Informant: patient Narrative Narrative: Patient 24-year-old female with history of tobacco use (vapes), asthma, prior tonsillectomy, GERD, depression and anxiety as well as recent diagnosis of HPV of the cervix (scheduled for colposcopy) who previously received Gardasil vaccine presenting for evaluation of sore throat and cough. She has had a cough for the past 2 weeks. She had a burning chest discomfort that is rating to her throat. She is her voice has become hoarse. She feels that there is a knot or lump in the back of her throat is making swallowing well hard. She denies any fever or chills. Denies any URI symptoms. She states that at night her breathing feels worse and she has a hard time laying down because she is wheezing. She does have an albuterol inhaler which she is using with minimal relief. She was Her symptoms online and is concerned that she could have cancer in her neck causing her symptoms given her recent diagnosis of HPV. She came in for further evaluation. She denies any sick contacts. No other complaints or concerns reported at this time. She denies any unintentional weight loss, night sweats or neck swelling. [facility] Medical History HPV (human papilloma virus) infection Injury of head and neck Asthma Anxiety [...] 5 Unknown Rx clavulanate 125 mg tablet albuterol sulfate 90 mcg/actuation 1 - 2 puff inhalation Q4H PRN GA N 01/01/25 Unknown Rx aerosol inhaler (Ventolin HFA) Wheezing #1 inh prednisone 20 mg tablet 40 mg (2 x 20 mg) PO DAILY #10 tab s 01/01/25 Unknown Rx Allergy/AdvReac Type Severity Reaction Status Date / Time No Known Allergies Allergy Verified 01/01/25 09:21 Family History Father Hypertrophic cardiomyopathy Grandfather Hypertrophic cardiomyopathy Surgical History H/O partial resection of colon History of appendectomy History of tonsillectomy Social History Smoking Status: Current every day smoker tobacco type: e-cigarettes alcohol intake: current ROS ROS ED Constitutional Constitutional ED: Denies chills, fever(s) or sweats ENT ENT ED: Reports sore throat; Denies ear pain or rhinorrhea Cardiovascular Cardiovascular: Denies chest pain or palpitations Respiratory/Chest Respiratory/Chest: Reports cough, dyspnea and other Details: Wheezing ; Denies sputum Gastrointestinal Gastrointestinal: Denies abdominal pain, nausea or vomiting Musculoskeletal Musculoskeletal: Denies arthralgias or myalgias Integumentary Denies rash Neurologic Neurologic: Denies weakness Psychiatric Psychiatric: Reports anxiety EXAM Physical Exam Const Vital Signs: 01/01/25 09:20 01/01/25 10:08 Temperature 98.4 F Temperature Source Oral Pulse Rate 97 91 Respiratory Rate 18 16 Respiratory Pattern Normal Blood Pressure 135/83 H Blood Pressure Mean 100 Pulse Ox 100 Oxygen Delivery Method Room Air Positive well nourished and well developed General Appearance ED: well developed and NAD HEENT Reports moist mucous membranes HEENT Narrative: Mild injection of the posterior oropharynx. Uvula is midline. No mass or swelling appreciated. Tonsils surgically absent Eyes PERRL Neck supple and no JVD Neck Narrative: No lymphadenopathy present (more content not included)... Normal [facility] B-HCG SerPl-aCncon HCG.beta subunit Qn m[IU]/mL Normal <5.0 [facility] Comment on above: Order Comment: Speci men Type: BLOOD SPECIMENOrdering Facility: [facility] Address: [address] [place] [address] Result Comment: Nega tive Performed By: #### 2 1198-7 ####[facility] LABCLIA [id number] [place] [address] [place] C. trachomatis+N. gonorrhoea e DNA ANURADHA+probe Ql (Unsp spec)on 12-22-2024 C. trachomatis rRNA ANURADHA+probe Ql (Unsp spec) Not detected Normal Not detected [facility] Comment on above: Order Comment: Speci men Type: SWABOrdering Facility: [facility] Address: [address] [place] [address] Performed By: #### 3 6902-5 ####[facility] LABCLIA [id number] [place] [address] [place] N. gonorrhoeae rRNA ANURADHA+probe Ql (Unsp spec) Not detected Normal Not detected [facility] Comment on above: Order Comment: Speci men Type: SWABOrdering Facility: [facility] Address: [address] [place] [address] Performed By: #### 3 6902-5 ####[facility] LABTOY [id number] [address] OF [facility] CNOVon 12-22-2024 CNOV Office Visit (OBGYWM ) OTTONIEL OSMAN ([id number]) 2000 F Date Time Provider Department 12/22/24 2:00 PM JANELLE ENNIS During your visit today, we recorded the following information about you: Blood pressure Weight Height Last Period 122/88 58.5 kg 1.613 m 10/31/24 Jnaelle Ennis APRN.PROJECT DRILLING ENGINEER 12/22/2024 2:39 PM Signed Chief Informatics Officer offered: Patient declines. Accompanied by significant other. Ottoniel is a 24 year old who presents for an annual gynecologic exam without complaints. 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 Viky Stubbs, RADIOLOGIC ELECTRONIC SPECIALIST.CNM Chlamydia positive again 10/19/21. SW Depression 10/11/2014 [...] discussed with the Patient or Patient's Authorized Plant Mechanic. As applicable, any other physician, advance practice provider, medical student, or other health professional student that will be observing or involved in the sensitive examination for educational or training purposes was discussed with the Patient or Authorized Plant Mechanic. The Patient or Authorized Plant Mechanic has agreed to proceed with the sensitive [...] external genitalia normal, normal Bartholin's glands, urethra, Mart's glands, no vulvar lesions, no cervical lesions, good vaginal support, physiologic (more content not included)... Normal [facility] HCG QUANTITATIVEon HCG.beta subunit Qn [facility] Comment on above: Negative HCG.beta subunit Qnon 2024 Interpretation and review of laboratory results Normal [facility] HIGH RISK HUMAN PAPILLOMA ANNA (HPV), PCR FOR DETECTION AND GENOTYPINGon 12-22-2024 HPV 16 Ag Ql (Unsp spec) Not detected Normal Not detected [facility] Comment on above: Order Comment: Speci men Type: FLUID SPECIMENOrdering Facility: [facility] Address: [address] [place] [address] Performed By: #### H PVHRT ####[facility] LABIA [id number] [place] [address] [place] HPV 18 Ag Ql (Unsp spec) Not detected Normal Not detected [facility] Comment on above: Order Comment: Speci men Type: FLUID SPECIMENOrdering Facility: [facility] Address: [address] [place] [address] Performed By: #### H PVHRT ####[facility] LABIA [id number] [place] [address] [place] HPV 31+33+35+39+45+51+52+5 6+58+59+66+68 DNA ANURADHA+probe Ql (Cvx) Detected Abnormal Not detected [facility] Comment on above: Order Comment: Speci men Type: FLUID SPECIMENOrdering Facility: [facility] Address: [address] [place] [address] Result Comment: High Risk HPV Other Type includes HPV types 31, 33, 35, 39, 45, 51, 52, 56, 58, 59, 66 and 68. Performed By: #### H PVHRT ####[facility] LABCLIA [id number] [address] [place] PAP TESTon 12-22-2024 ADEQUACY Normal [facility] Comment on above: Order Comment: Speci men Type: FLUID SPECIMENOrdering Facility: [facility] Address: [address] [place] [address] Result Comment: Sati sfactory for interpretation. Transformation zone present Performed By: #### L [id number] ####[facility]ORATORYCLIA [id number] [address] LABCLIA [id number] [address] [place] CASE REPORT Normal [facility] Comment on above: Order Comment: Speci men Type: FLUID SPECIMENOrdering Facility: [facility] Address: [address] [place] [address] Result Comment: Gyne cologic Cytology Report Case: [id number] Authorizing Provider: Janelle Ennis APRN.PROJECT DRILLING ENGINEER Collected: 12/22/2024 02:41 PM Ordering Location: OB/Gynecology Received: 12/22/2024 04:51 PM First Screen: Fabiola Woodward CT, ASCP Pathologist: Manuela Woodward MD Specimen: Pap Test, ThinPrep, Cervix Performed By: #### L [id number] ####[facility]ORATORYCLIA [id number] [address] STATES OF [facility] LABCLIA [id number] [place] [id number] [place] CLINICAL HISTORY, CYTOLOGY, COMPRESSION MOLDING MACHINE OPERATOR Routine Exam Normal [facility] Comment on above: Order Comment: Speci men Type: FLUID SPECIMENOrdering Facility: [facility] Address: [address] [place] [address] Performed By: #### L [id number] ####[facility]ORATORYCLIA [id number] [place] [address] [place] [address] [address] LABCLIA [id number] [place] [address] [place] CYTOLOGY PAP OTHER INTERPRETATION Predominance of coccobacilli consistent with shift in vaginal edwin. Normal [facility] Comment on above: Order Comment: Speci men Type: FLUID SPECIMENOrdering Facility: [facility] Address: [address] [place] [address] Performed By: #### L [id number] ####[facility]ORATORYCLIA [id number] [place] [address] [place] [facility] LABCLIA [id number] [place] [address] [place] FINAL PERFORMING LAB Normal [facility] Comment on above: Order Comment: Speci men Type: FLUID SPECIMENOrdering Facility: [facility] Address: [address] [place] [address] Result Comment: Tech nical component, welfare specialist screening performed at: [facility], [address] [place] [address] CLIA: [id number] Diagnostic interpretation performed at: [facility], [address] [place] [address] CLIA# [id number] Senior Microstrategy Developer: Nissa White MD Performed By: #### L [id number] ####[facility]ORATORYCLIA [id number] [place] [address] [place] [address] [address] LABCLIA [id number] [address] [address] [place] INTERPRETATION, CYTOLOGY, COMPRESSION MOLDING MACHINE OPERATOR Abnormal [facility] Comment on above: Order Comment: Speci men Type: FLUID SPECIMENOrdering Facility: [facility] Address: [address] [place] [address] Result Comment: Atyp ical squamous cells of undetermined significance (ASC-US). at 0848 EDT Performed By: #### L [id number] ####[facility]ATORYCLIA [id number] [address] LABCLIA [id number] [place] [id number] [place] LMP 12/01/2024 Normal [facility] Comment on above: Order Comment: Speci men Type: FLUID SPECIMENOrdering Facility: [facility] Address: [address] [place] [address] Performed By: #### L [id number] ####[facility]ATORYCLIA [id number] [address] LABCLIA [id number] [address] [address] [place] PAP DISCLAIMER COMMENT The Pap Smear is a screening test for cervical cancer. False negative results occur with all screening tests, emphasizing the need for rescreening at recommended intervals, and clinical correlation. Normal [facility] Comment on above: Order Comment: Speci men Type: FLUID SPECIMENOrdering Facility: [facility] Address: [address] [place] [address] Performed By: #### L [id number] ####[facility]ATORYCLIA [id number] [address] LABCLIA [id number] [place] [id number] [place] PAP GENERAL CATEGORIZATION Epithelial Cell Abnormality Normal [facility] Comment on above: Order Comment: Speci men Type: FLUID SPECIMENOrdering Facility: [facility] Address: [address] [place] [address] Performed By: #### L [id number] ####[facility]ATORYCLIA [id number] [address] LABIA [id number] [address] PAP SCRUB TECH COMMENT This specimen has be en analyzed by the FDA-approved [employer] System, which uses digital imaging and an enhanced artificial intelligence image analysis algorithm to identify malhotra of interest on the microscopic slide, to assist the fuel yard operator and pathologist in evaluating cells on ThinPrep Pap tests. Following analysis, malhotra of interest on the microscopic slide selected by the algorithm are reviewed by a fuel yard operator. If a sample requires hierarchical review, the pathologist will review the same malhotra of interest selected by the algorithm prior to final interpretation. Normal [facility] Comment on above: Order Comment: Speci men Type: FLUID SPECIMENOrdering Facility: [facility] Address: [facility] [place] [address] Performed By: #### L [id number] ####[facility] LABORATORYIA [id number] [address] LABIA [id number] [address] OF [facility] CNOVon 11-08-2024 CNOV Office Visit (UCWSTR ) OTTONIEL OSMAN ([id number]) 2000 F Date Time Provider Department 11/08/24 6:45 PM KRISHAN WING [facility] During your visit today, we recorded the following information about you: Temperature Pulse Respiration Blood pressure 98.7 degrees 93/minute 19/minute 116/72 Weight 60.5 kg Krishan Wing APRN.PROJECT DRILLING ENGINEER 11/08/2024 7:46 PM Signed [facility] [...] is provided by the patient. No language instructor was used. Trauma The current episode started [...] YR (ADACEL, BOOSTRIX) [place] TEACHING PROVIDER (Physician/PA/RADIOLOGIC ELECTRONIC SPECIALIST) NOTE OF PERSONAL INVOLVEMENT IN CARE: I have personally seen and examined the patient and performed the (more content not included)... Normal [facility] Abdomen/Pelvis W IV Cont ONL Yon 10-30-2024 Abdomen/Pelvis W IV Cont ONLY [facility] Imaging Services [address] [place] [address] Abdomen/Pelvis W IV Cont ONLY MR#: [id number] Acct: [id number] Name: OTTONIEL OSMAN LIA Rep #: [id number] : 2000 F 24 From: Darwin Morse PCP: Care Physician,No Primary Status: REG ER Study: Abdomen/Pelvis W IV Cont ONLY Date of Exam: Exam# [id number] Ordering Dr: Luis Armando Becerril DO PROCEDURE: [...] nondistention; consider correlation with urinalysis. Reading Location: [id number] CC: Dr. 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 Mash Filter Press Operator: Signed Normal [facility] Absolute lymphocyte countOrd ered By: Luis Armando Becerril on 10-30-2024 Lymphocytes Auto (Unsp spec) [#/Vol] 4.10 10*3/uL 0.83-4.51 [facility] Absolute neutrophil countOrd ered By: Luis Armando Becerril on 10-30-2024 Neutrophils (Bld) [#/Vol] 7.7 10*3/uL 2.0-7.7 [facility] Anion gap in Serum or Plasma Ordered By: Luis Armando Becerril on 10-30-2024 Anion gap [Moles/Vol] 11 mmol/L 5- [facility] Automated lymphocyte count a s percentage of total leukocytesOrdered By: Luis Armando Becerril on 10-30-2024 Lymphocytes/100 WBC Auto (Unsp spec) 30.2 % - [facility] BUN/creatinine ratioOrdered By: Luis Armando Becerril on 10-30-2024 Urea nitrogen/Creatinine [Mass ratio] 13.7 mg/mg - [facility] Basic Metabolic Profile (BMP )on 10-30-2024 BUN/CRE 13.7 RATIO Normal - [facility] Comment on above: Performed By: #### L 100.0100, L700.6800, L500.2500 ####[facility] [address] [place], [address] Calcium [Mass/Vol] 9.1 mg/dL Normal 7.6-11.0 [facility] Comment on above: Performed By: #### L 100.0100, L700.6800, L500.2500 ####[facility] [address] [place], [address] Chloride [Moles/Vol] 108 mmol/L Normal 98-108 [facility] Comment on above: Performed By: #### L 100.0100, L700.6800, L500.2500 ####[facility] [address] [place], [address] CO2 [Moles/Vol] 21.3 mmol/L Normal 21.0-32.0 [facility] Comment on above: Performed By: #### L 100.0100, L700.6800, L500.2500 ####[facility] [address] [place], [address] Creatinine [Mass/Vol] 0.80 mg/dL Normal 0.70-1.20 [facility] Comment on above: Performed By: #### L 100.0100, L700.6800, L500.2500 ####[facility] [address] [place], [address] ECRCL 92.83 ml/min Normal 50-250 [facility] Comment on above: Performed By: #### L 100.0100, L700.6800, L500.2500 ####[facility] [address] [place], [address] GAP 11 Normal 5-15 [facility] Comment on above: Performed By: #### L 100.0100, L700.6800, L500.2500 ####[facility] [address] [place], [address] GFR/1.73 sq M.predicted among non-blacks MDRD (S/P/Bld) [Vol rate/Area] 104 mL/min/{1.73_m2} Normal >60 [facility] Comment on above: Result Comment: mL/m in/1.73m2 CKD-EPI Creatinine Equation (2020) Performed By: #### L 100.0100, L700.6800, L500.2500 ####[facility] [address] [place], [address] Glucose [Mass/Vol] 94 mg/dL Normal 70-99 [facility] Comment on above: Performed By: #### L 100.0100, L700.6800, L500.2500 ####[facility] [address] [place], [address] Potassium [Moles/Vol] 4.3 mmol/L Normal 3.3-5.1 [facility] Comment on above: Performed By: #### L 100.0100, L700.6800, L500.2500 ####[facility] [address] [place], [address] Sodium [Moles/Vol] 140 mmol/L Normal 133-145 [facility] Comment on above: Performed By: #### L 100.0100, L700.6800, L500.2500 ####[facility] [address] [place], [address] Urea nitrogen [Mass/Vol] 11 mg/dL Normal 4-19 [facility] Comment on above: Performed By: #### L 100.0100, L700.6800, L500.2500 ####[facility] [address] [place], [address] Basophil percentageOrdered B y: Luis Armando Becerril on 10-30-2024 Basophils/100 WBC (Bld) 0.8 % 0-1 [facility] Bilirubin Test strip Ql (U)O rdered By: Luis Armando Becerril on 10-30-2024 Bilirubin Ql (U) Negative Negative [facility] CBC W/Diff, Automatedon - Absolute Lymph 4.10 X10 3/uL Normal 0.83-4.51 [facility] Comment on above: Performed By: #### L 100.0100, L700.6800, L500.2500 #### [facility] [address] [place], [address] Absolute Neut 7.7 X10 3/uL Normal 2.0-7.7 [facility] Comment on above: Performed By: #### L 100.0100, L700.6800, L500.2500 #### [facility] [address] [place], [address] Basophils/100 WBC (Bld) 0.8 % Normal 0-1 [facility] Comment on above: Performed By: #### L 100.0100, L700.6800, L500.2500 #### [facility] [address] [place], [address] Eosinophils/100 WBC (Bld) 6.0 % High 0-5 [facility] Comment on above: Performed By: #### L 100.0100, L700.6800, L500.2500 #### [facility] [address] [place], [address] Erythrocyte distribution width (RBC) [Ratio] 13.7 % Normal 11.6-14.6 [facility] Comment on above: Performed By: #### L 100.0100, L700.6800, L500.2500 #### [facility] [address] [place], [address] Hematocrit (Bld) [Volume fraction] 40.6 % Normal 37-47 [facility] Comment on above: Performed By: #### L 100.0100, L700.6800, L500.2500 #### [facility] [address] [place], [address] Hemoglobin (Bld) [Mass/Vol] 13.7 g/dL Normal 12.0-15.0 [facility] Comment on above: Performed By: #### L 100.0100, L700.6800, L500.2500 #### [facility] [address] [place], [address] IG% 0.400 Normal 0.0-0.9 [facility] Comment on above: Result Comment: IG% - Immature Granulocytes (promyelocytes, myelocytes and metamyelocytes) > 1% indicates that a LEFT SHIFT is Present. Performed By: #### L 100.0100, L700.6800, L500.2500 #### [facility] [address] [place], [address] Lymphocytes/100 WBC (Bld) 30.2 % Normal 19-41 [facility] Comment on above: Performed By: #### L 100.0100, L700.6800, L500.2500 #### [facility] [address] [place], [address] MCH (RBC) [Entitic mass] 30.6 pg Normal 27.0-32.0 [facility] Comment on above: Performed By: #### L 100.0100, L700.6800, L500.2500 #### [facility] [address] [place], [address] MCHC (RBC) [Mass/Vol] 33.7 g/dL Normal 32-36 [facility] Comment on above: Performed By: #### L 100.0100, L700.6800, L500.2500 #### [facility] [address] [place], [address] MCV (RBC) [Entitic vol] 90.8 fL Normal 81-99 [facility] Comment on above: Performed By: #### L 100.0100, L700.6800, L500.2500 #### [facility] [address] [place], [address] Monocytes/100 WBC (Bld) 5.7 % Normal 0-10 [facility] Comment on above: Performed By: #### L 100.0100, L700.6800, L500.2500 #### [facility] [address] [place], [address] Neutrophils/100 WBC (Bld) 56.9 % Normal 47-70 [facility] Comment on above: Performed By: #### L 100.0100, L700.6800, L500.2500 #### [facility] [address] [place], [address] Nucleated RBC (Bld) [#/Vol] 0 10*3/uL Normal 0-5 [facility] Comment on above: Performed By: #### L 100.0100, L700.6800, L500.2500 #### [facility] [address] [place], [address] Platelet mean volume (Bld) [Entitic vol] 11.2 fL Normal 6.2-12.0 [facility] Comment on above: Performed By: #### L 100.0100, L700.6800, L500.2500 #### [facility] [address] [place], [address] Platelets (Bld) [#/Vol] 255 10*3/uL Normal 150-450 [facility] Comment on above: Performed By: #### L 100.0100, L700.6800, L500.2500 #### [facility] [address] [place], [address] RBC (Bld) [#/Vol] 4.47 10*6/uL Normal 4.2-5.4 [facility] Comment on above: Performed By: #### L 100.0100, L700.6800, L500.2500 #### [facility] [address] [place], [address] RDW SD 45.9 fl High 35.1-43.9 [facility] Comment on above: Performed By: #### L 100.0100, L700.6800, L500.2500 #### [facility] [address] [place], [address] WBC (Bld) [#/Vol] 13.6 10*3/uL High 4.4-11.0 [facility] Comment on above: Performed By: #### L 100.0100, L700.6800, L500.2500 #### [facility] [address] [place], [address] Carbon dioxide, total [Moles /volume] in Central venous bloodOrdered By: Luis Armando Becerril on 10-30-2024 CO2 [Moles/Vol] 21.3 mmol/L 21.0-32.0 [facility] Chloride assayOrdered By: Ez Becerril on 10-30-2024 Chloride [Moles/Vol] 108 mmol/L 98-108 [facility] Emergency Department Summary on 10-30-2024 Emergency Department Summary [facility] Medical Records Department [address] [place] [address] Emergency Department Summary 10/30/24 MR#: [id number] Acct: [id number] Name: OTTONIEL OSMAN LIA Rep #: [id number] : 2000 From: Luis Armando Becerril DO PCP: Care [...] her diverticulitis. Prior similar symptoms: Yes PFSH [facility] Medical History (Updated 10/30/24 @ 11:00 by [...] all extr (more content not included)... Normal [facility] Eosinophil percentageOrdered By: Luis Armando Becerril on 10-30-2024 Eosinophils/100 WBC (Bld) 6.0 % High 0-5 [facility] Erythrocyte distribution wid th ratioOrdered By: Luis Armando Becerril on 10-30-2024 Erythrocyte distribution width (RBC) [Ratio] 13.7 % 11.6-14.6 [facility] Erythrocyte distribution wid th standard deviationOrdered By: Luis Armando Becerril on 10-30-2024 Erythrocyte distribution width (RBC) [Ratio] 45.9 fl High 35.1-43.9 [facility] Glomerular filtration rate ( GFR) estimation/1.73 sq m using serum, plasma, or whole bOrdered By: Luis Armando Becerril on 10-30-2024 GFR/1.73 sq M.predicted among non-blacks MDRD (S/P/Bld) [Vol rate/Area] 104 mL/min/{1.73_m2} >60 [facility] Comment on above: mL/min/1.73m2 CKD-EP I Creatinine Equation (2020) Hematocrit Auto (Bld) [Volum e fraction]Ordered By: Luis Armando Becerril on 10-30-2024 Hematocrit (Bld) [Volume fraction] 40.6 % 37-47 [facility] Hemoglobin measurementOrdere d By: Luis Armando Becerril on 10-30-2024 Hemoglobin (Bld) [Mass/Vol] 13.7 g/dL 12.0-15.0 [facility] Immature granulocytes/100 WB C Auto (Bld)Ordered By: Luis Armando Brittneeabi on 10-30-2024 Immature granulocytes/100 WBC (Bld) 0.400 % 0.0-0.9 [facility] Comment on above: IG% - Immature Granu locytes (promyelocytes, myelocytes and metamyelocytes) > 1% indicates that a LEFT SHIFT is Present. Ketones Test strip Ql (U)Ord ered By: Luis Armandomary Becerril on 10-30-2024 Ketones Ql (U) Negative Negative [facility] Lipid Profileon 10-30-2024 TRIG Normal [facility] Comment on above: Result Comment: [facility] PATIENT ORDERS The drugs N-Acetylcysteine and Metamizole may falsely depress this assay. Performed By: #### L 500.4100 ####[facility] [address] [place], [address] CHOL Normal <=200 [facility] Comment on above: Result Comment: [facility] PATIENT ORDERS Performed By: #### L 500.4100 ####[facility] [address] [place], [address] CHOL:HDL Normal [facility] Comment on above: Result Comment: [facility] PATIENT ORDERS Performed By: #### L 500.4100 ####[facility] [address] [place], [address] CLDL Normal [facility] Comment on above: Result Comment: [facility] PATIENT ORDERS Performed By: #### L 500.4100 ####[facility] [address] [place], [address] HDL Normal [facility] Comment on above: Result Comment: [facility] PATIENT ORDERS Performed By: #### L 500.4100 ####[facility] [address] [place], [address] VLDL Normal 5-40 [facility] Comment on above: Result Comment: [facility] PATIENT ORDERS Performed By: #### L 500.6983 ####[facility] [address] [place], [address] MCV (mean corpuscular volume ) determinationOrdered By: Luis Armando Becerril on 10-30-2024 MCV (RBC) [Entitic vol] 90.8 fL 81-99 [facility] Mean corpuscular hemoglobin (MCH) determinationOrdered By: Luis Armando Becerril on 10-30-2024 MCH (RBC) [Entitic mass] 30.6 pg 27.0-32.0 [facility] Mean corpuscular hemoglobin concentration (MCHC) determinationOrdered By: Luis Armando Becerril on 10-30-2024 MCHC (RBC) [Mass/Vol] 33.7 g/dL 32-36 [facility] Mean platelet volume determi nationOrdered By: Luis Armando Becerril on 10-30-2024 Platelet mean volume (Bld) [Entitic vol] 11.2 fL 6.2-12.0 [facility] Microscopic analysis of urin e for red blood cells (RBC)Ordered By: Luis Armando Becerril on 10-30-2024 Microscopic analysis of urine for red blood cells (RBC) 0 SEEN /hpf 0-5 [facility] Monocyte percentageOrdered B y: Luis Armando Becerril on 10-30-2024 Monocytes/100 WBC (Bld) 5.7 % 0-10 [facility] Mucus LM Ql (Urine sed)Order ed By: Luis Armando Becerril on 10-30-2024 Mucus Ql (Urine sed) RARE /hpf [facility] Neutrophil percentageOrdered By: Luis Armando Becerril on 10-30-2024 Neutrophils/100 WBC (Bld) 56.9 % 47-70 [facility] Nitrite Test strip Ql (U)Ord ered By: Luis Armando Becerril on 10-30-2024 Nitrite Ql (U) Negative Negative [facility] Nucleated red blood cell per centageOrdered By: Luis Armando Becerril on 10-30-2024 Nucleated RBC/100 WBC (Bld) [Ratio] 0 % 0-5 [facility] Platelet countOrdered By: Ez Becerril on 10-30-2024 Platelets (Bld) [#/Vol] 255 10*3/uL 150-450 [facility] Potassium measurement (mass/ volume)Ordered By: Luis Armando Becerril on 10-30-2024 Potassium (Unsp spec) [Mass/Vol] 4.3 mmol/L 3.3-5.1 [facility] ,Serum,hCG Quali.on 10-30-2024 HCG, SERUM QUAL Negative Normal [facility] Comment on above: Performed By: #### L 100.0100, L700.6800, L500.2500 ####[facility] [address] [place], [address] Protein Test strip Ql (U)Ord ered By: Luis Armando Becerril on 10-30-2024 Protein Ql (U) 15 mg/dl High Negative [facility] RBC Auto (Bld) [#/Vol]Ordere d By: Luis Armando Becerril on 10-30-2024 RBC (Bld) [#/Vol] 4.47 10*6/uL 4.2-5.4 [facility] Serum beta-hCG test, qualita tiveOrdered By: Luis Armando Becerril on 10-30-2024 Beta HCG ( test) Ql Negative [facility] Serum creatinine measurement (mass/volume)Ordered By: Luis Armando Becerril on 10-30-2024 Creatinine [Mass/Vol] 0.80 mg/dL 0.70-1.20 [facility] Serum glucose measurement (m ass/volume)Ordered By: Luis Armando Becerril on 10-30-2024 Glucose [Mass/Vol] 94 mg/dL 70-99 [facility] Serum or plasma calcium honey urement (mass/volume)Ordered By: Luis Armando Becerril on 10-30-2024 Calcium [Mass/Vol] 9.1 mg/dL 7.6-11.0 [facility] Serum or plasma urea nitroge n measurement (mass/volume)Ordered By: Luis Armando Becerril on 10-30-2024 Urea nitrogen [Mass/Vol] 11 mg/dL 4-19 [facility] Sodium levelOrdered By: Luis Armando Becerril on 10-30-2024 Sodium [Moles/Vol] 140 mmol/L 133-145 [facility] Squamous epithelial cells de tection in urine sediment by light microscopyOrdered By: Luis Armando Becerril on 10-30-2024 Epithelial cells.squamous LM Ql (Urine sed) 10-25 SEEN /hpf 5- [facility] Urinalysis, Completeon 10-30 BACTERIA 2+ /hpf Normal None Seen [facility] Comment on above: Order Comment: JAYJAY CTOR TO SPECIFY Performed By: #### L 400.0001 ####[facility] [address] [facility] [address] EPI,SQUAMOUS 10-25 SEEN Normal 5-10 [facility] Comment on above: Order Comment: JAYJAY CTOR TO SPECIFY Performed By: #### L 400.0001 ####[facility] [address] [facility] [address] Mucus Ql (Urine sed) RARE Normal [facility] Comment on above: Order Comment: JAYJAY CTOR TO SPECIFY Performed By: #### L 400.0001 ####[facility] [address] [place], [address] RBC 0 SEEN Normal 0-5 [facility] Comment on above: Order Comment: JAYJAY CTOR TO SPECIFY Performed By: #### L 400.0001 ####[facility] [address] [facility] [address] WBC 0-5 SEEN Normal 0-5 [facility] Comment on above: Order Comment: JAYJAY CTOR TO SPECIFY Performed By: #### L 400.0001 ####[facility] [address] [facility] [address] Urine clarityOrdered By: Catherine Becerril on 10-30-2024 Clarity (U) Cloudy Clear [facility] Urine color determinationOrd ered By: Luis Armando Becerril on 10-30-2024 Color (U) Yellow Yellow [facility] Urine glucose detectionOrder ed By: Luis Armando Becerril on 10-30-2024 Glucose Ql (U) Normal mg/dl Normal [facility] Urine leukocyte esterase det ection by dipstickOrdered By: Luis Armando Becerril on 10-30-2024 Leukocyte esterase Test strip Ql (U) 25 /ul High Negative [facility] Urine pHOrdered By: Luis Armando prasad on 10-30-2024 pH (U) 8.0 [pH] 5.0 - 8.0 [facility] Urine sediment bacteria coun t by microscopy (number/high power field)Ordered By: Luis Armando Becerril on 10-30-2024 Bacteria LM.HPF (Urine sed) [#/Area] 2 /[HPF] None Seen [facility] Urine specific gravity measu rementOrdered By: Luis Armando Becerril on 10-30-2024 Specific gravity (U) [Rel density] 1.010 1.002-1.030 [facility] Urine urobilinogen measureme ntOrdered By: Luis Armando Becerril on 10-30-2024 Urobilinogen Ql (U) Normal mg/dl Normal [facility] White blood cell (WBC) count Ordered By: Luis Armando Becerril on 10-30-2024 WBC (Bld) [#/Vol] 13.6 10*3/uL High 4.4-11.0 [facility] White blood cell countOrdere d By: Luis Armando Becerril on 10-30-2024 White blood cell count 0-5 SEEN /hpf 0-5 [facility] Emergency Department Summary on 09-14-2024 Emergency Department Summary [facility] Medical Records Department [address] [place] [address] Emergency Department Summary 09/14/24 MR#: [id number] Acct: [id number] Name: OTTONIEL OSMAN LIA Rep #: [id number] : 2000 24 From: Phong Birch DO [...] is tried Orajel without any pain relief. [facility] Medical History (Updated 09/14/24 @ 12:38 [...] to auscul (more content not included)... Normal [facility] Chris 07-16-2024 [facility] Telephone (OBGYWM) DAWSONOTTONIEL Hall ([id number]) 2000 F Date Time Provider Department 07/16/24 [...] had this pain until now. 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, but [...] Status:Closed by RANDY MONCADA on 07/16/24 Normal [facility] Abdomen/Pelvis W IV Cont ONL Yon 06-25-2024 Abdomen/Pelvis W IV Cont ONLY [facility] Imaging Services [address] [place], [place] [address], [place] [address] Abdomen/Pelvis W IV Cont ONLY MR#: [id number] Acct: [id number] Name: OTTONIEL OSMAN [facility] Rep #: [id number] : 2000 F 24 From: Aleksandr lyn MD PCP: Care Physician,No Primary Status: REG ER Study: Abdomen/Pelvis W IV Cont ONLY Date of Exam: Exam# [id number] Ordering Dr: [place] [id number] EXAM: CT ABDOMEN AND PELVIS WITH INTRAVENOUS [...] right ovarian cyst; ACR White Paper guidelines (Luiz et. al. JACR 2020;17(2):248-254) suggest no follow-up is necessary. 2. Previous appendectomy. 3. Minimal colonic diverticulosis without evidence for acute diverticulitis. 4. No evidence for small bowel obstruction or obstructive uropathy. Electronically Signed: Aleksandr Jimenez MD at 6:17 EST , CC: Dr. 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 Normal [facility] Absolute neutrophil countOrd ered By: Nigel Rivera on 06-25-2024 Neutrophils (Bld) [#/Vol] 4.8 10*3/uL 2.0-7.7 [facility] Albumin to globulin ratioOrd ered By: Nigel Rivera on 06-25-2024 Albumin/Globulin [Mass ratio] 1.3 {ratio} 0.9-2.4 [facility] Basophil percentageOrdered B y: Nigel Rivera on 06-25-2024 Basophils/100 WBC (Bld) 0.7 % 0-1 [facility] Beta HCG ( test) Ql Ordered By: Nigel Rivera on 06-25-2024 Serum Test, Qualitative Negative [facility] Bilirubin Test strip Ql (U)O rdered By: Nigel Rivera on 06-25-2024 Bilirubin Ql (U) Negative Negative [facility] Bilirubin, totalOrdered By: Nigel Rivera on 06-25-2024 Bilirubin [Mass/Vol] 0.20 mg/dL 0.20-1.00 [facility] Comment on above: For patients on eltr ombopag therapy, use of Dimension [place] TBIL is not recommended. Blood urea nitrogen (BUN)/cr eatinine ratioOrdered By: Nigel Rivera on 06-25-2024 Urea nitrogen/Creatinine [Mass ratio] 14.9 mg/mg 10-20 [facility] CBC W/Diff, Automatedon 06-09 SMEAR COMMENT SCANNED Normal [facility] Comment on above: Performed By: #### L 100.0100, L500.4050, L501.2450 #### [facility] [address] [place], [address] Carbon dioxide measurementOr dered By: Nigel Rivera on 06-25-2024 CO2 [Moles/Vol] 23.0 mmol/L 21.0-32.0 [facility] Chloride measurementOrdered By: Nigel Rivera on 06-25-2024 Chloride [Moles/Vol] 110 mmol/L High 98-107 [facility] Comprehensive Metabolic Prof ilon 06-25-2024 Albumin [Mass/Vol] 3.4 g/dL Normal 3.2-5.0 [facility] Comment on above: Performed By: #### L 100.0100, L500.4050, L501.2450 #### [facility] [address] [place], [address] Albumin/Globulin [Mass ratio] 1.3 {ratio} Normal 0.9-2.4 [facility] Comment on above: Performed By: #### L 100.0100, L500.4050, L501.2450 #### [facility] [address] [place], [address] ALK P 59 U/L Normal 45-117 [facility] Comment on above: Performed By: #### L 100.0100, L500.4050, L501.2450 #### [facility] [address] [place], [address] ALT [Catalytic activity/Vol] 18 U/L Normal 13-56 [facility] Comment on above: Performed By: #### L 100.0100, L500.4050, L501.2450 #### [facility] [address] [place], [address] AST [Catalytic activity/Vol] 8 U/L Low 15-37 [facility] Comment on above: Performed By: #### L 100.0100, L500.4050, L501.2450 #### [facility] [address] [place], [address] Bilirubin [Mass/Vol] 0.20 mg/dL Normal 0.20-1.00 [facility] Comment on above: Result Comment: For patients on eltrombopag therapy, use of Dimension [place] TBIL is not recommended. Performed By: #### L 100.0100, L500.4050, L501.2450 #### [facility] [address] [place], [address] BUN/CRE 14.9 RATIO Normal 10-20 [facility] Comment on above: Performed By: #### L 100.0100, L500.4050, L501.2450 #### [facility] [address] [place], [address] CA,Total 9.2 mg/dL Normal 8.5-10.1 [facility] Comment on above: Performed By: #### L 100.0100, L500.4050, L501.2450 #### [facility] [address] [place], [address] Chloride [Moles/Vol] 110 mmol/L High 98-107 [facility] Comment on above: Performed By: #### L 100.0100, L500.4050, L501.2450 #### [facility] [address] [place], [address] CO2 [Moles/Vol] 23.0 mmol/L Normal 21.0-32.0 [facility] Comment on above: Performed By: #### L 100.0100, L500.4050, L501.2450 #### [facility] [address] [place], [address] Creatinine [Mass/Vol] 0.87 mg/dL Normal 0.55-1.02 [facility] Comment on above: Result Comment: The validity of the calculated GFR GFRAA in patients over 70 years has not been determined. Clinical correlation is essential. Performed By: #### L 100.0100, L500.4050, L501.2450 #### [facility] [address] [place], [address] ECRCL 85.36 ml/min Normal [facility] Comment on above: Performed By: #### L 100.0100, L500.4050, L501.2450 #### [facility] [address] [place], [address] EST GFR - AA 102 mL/min Normal >60 [facility] Comment on above: Result Comment: Afri can Singaporean GFR Calc Performed By: #### L 100.0100, L500.4050, L501.2450 #### [facility] [address] [place], [address] GAP 7 Normal 5-15 [facility] Comment on above: Performed By: #### L 100.0100, L500.4050, L501.2450 #### [facility] [address] [place], [address] GFR/1.73 sq M.predicted among non-blacks MDRD (S/P/Bld) [Vol rate/Area] 84 mL/min/{1.73_m2} Normal >60 [facility] Comment on above: Result Comment: Non- GFR Calc Performed By: #### L 100.0100, L500.4050, L501.2450 #### [facility] [address] [place], [address] Globulin (S) [Mass/Vol] 2.7 g/dL Normal 2.2-4.2 [facility] Comment on above: Performed By: #### L 100.0100, L500.4050, L501.2450 #### [facility] [address] [place], [address] Glucose [Mass/Vol] 111 mg/dL High 74-106 [facility] Comment on above: Result Comment: Fast ing Glucose result from 100 to 125 mg/dL suggests IMPAIRED HOMEOSTASIS per A.D.A. criteria. Performed By: #### L 100.0100, L500.4050, L501.2450 #### [facility] [address] [place], [address] Potassium [Moles/Vol] 4.1 mmol/L Normal 3.5-5.1 [facility] Comment on above: Performed By: #### L 100.0100, L500.4050, L501.2450 #### [facility] [address] [place], [address] Sodium [Moles/Vol] 140 mmol/L Normal 136-145 [facility] Comment on above: Performed By: #### L 100.0100, L500.4050, L501.2450 #### [facility] [address] [place], [address] T PROT 6.1 g/dL Low 6.4-8.2 [facility] Comment on above: Performed By: #### L 100.0100, L500.4050, L501.2450 #### [facility] [address] [place], [address] Urea nitrogen [Mass/Vol] 13 mg/dL Normal 7-18 [facility] Comment on above: Performed By: #### L 100.0100, L500.4050, L501.2450 #### [facility] [address] [place], [address] Emergency Department Summary on 06-25-2024 Emergency Department Summary [facility] Medical Records Department [address] [place] [address] Emergency Department Summary 06/25/24 MR#: [id number] Acct: [id number] Name: OTTONIEL OSMAN LIA Rep #: [id number] : 2000 From: Nigel Rivera MD PCP: [...] September. This was almost 9 months ago. [facility] Medical History Injury of head and neck [...] a cont (more content not included)... Normal [facility] Eosinophil percentageOrdered By: Nigel Rivera on 06-25-2024 Eosinophils/100 WBC (Bld) 8.4 % High 0-5 [facility] Epithelial cells.squamous LM Ql (Urine sed)Ordered By: Nigel Rivera on 06-25-2024 Epithelial cells.squamous LM.HPF (Urine sed) [#/Area] 50 /[HPF] 5-10 [facility] Erythrocyte distribution wid th (RBC) [Ratio]Ordered By: Nigel Rivera on 06-25-2024 Erythrocyte distribution width (RBC) [Entitic vol] 42.4 fL 35.1-43.9 [facility] Erythrocyte distribution wid th ratioOrdered By: Nigel Rivera on 06-25-2024 Erythrocyte distribution width (RBC) [Ratio] 13.0 % 11.6-14.6 [facility] Estimated glomerular filtrat ion rate (GFR) AmericanOrdered By: Nigel Rivera on 06-25-2024 Estimated GFR (MDRD) Amer 102 mL/min >60 [facility] Comment on above: GFR Calc Estimation of creatinine emery aranceOrdered By: Nigel Rivera on 06-25-2024 Estimated Creatinine Clearance Calc 85.36 ml/min [facility] Glomerular filtration rate ( GFR) estimationOrdered By: Nigel Rivera on 06-25-2024 Estimated GFR (MDRD) Non-Af Amer 84 mL/min >60 [facility] Comment on above: Non- GFR Calc Glucose Ql (U)Ordered By: Pedrito Rivera on 06-25-2024 Urine Glucose (UA) Normal mg/dl Normal [facility] Glucose measurementOrdered B y: Nigel Rivera on 06-25-2024 Glucose [Mass/Vol] 111 mg/dL High 74-106 [facility] Comment on above: Fasting Glucose resu lt from 100 to 125 mg/dL suggests IMPAIRED HOMEOSTASIS per A.D.A. criteria. Hematocrit Auto (Bld) [Volum e fraction]Ordered By: Nigel Rivera on 06-25-2024 Hematocrit (Bld) [Volume fraction] 39.1 % 37-47 [facility] Hemoglobin measurementOrdere d By: Nigel Sandraluna on 06-25-2024 Hemoglobin (Bld) [Mass/Vol] 12.9 g/dL 12.0-15.0 [facility] Immature granulocytes/100 WB C Auto (Bld)Ordered By: Nigel Rivera on 06-25-2024 Immature granulocytes/100 WBC (Bld) 0.400 % 0.0-0.9 [facility] Comment on above: IG% - Immature Granu locytes (promyelocytes, myelocytes and metamyelocytes) > 1% indicates that a LEFT SHIFT is Present. Ketones Test strip Ql (U)Ord ered By: Nigel Rubaisaak on 06-25-2024 Ketones Ql (U) Negative Negative [facility] Laboratory - Chemistry and C hemistry - challengeOrdered By: Nigel Rubaisaak on 06-25-2024 AST [Catalytic activity/Vol] 8 U/L Low 15-37 [facility] Lipaseon 06-25-2024 Lipase [Catalytic activity/Vol] 49 U/L Normal 13-75 [facility] Comment on above: Result Comment: Plea se note: LIPASE revised reference range effective 22. New Lipase methodology. Expected to produce lower values than the previous assay method. NEW Reference Range: 13 - 75 U/L Performed By: #### L 100.0100, L500.4050, L501.2450 #### [facility] [address] [place] [address], [id number] Lipase measurementOrdered By : Nigel Rivera on 06-25-2024 Lipase [Catalytic activity/Vol] 49 U/L 13-75 [facility] Comment on above: Please note:LIPASE r evised reference range effective 22. New Lipase methodology. Expected to produce lower values than the previous assay method. NEW Reference Range: 13 - 75 U/L Lymphocytes Auto (Unsp spec) [#/Vol]Ordered By: Nigel Rivera on 06-25-2024 Lymphocytes (Bld) [#/Vol] 5.98 10*3/uL High 0.83-4.51 [facility] Lymphocytes/100 WBC Auto (Un sp spec)Ordered By: Nigel Rivera on 06-25-2024 Lymphocytes/100 WBC (Bld) 46.9 % High 19-41 [facility] MCV (mean corpuscular volume ) determinationOrdered By: Nigel Rivera on 06-25-2024 MCV (RBC) [Entitic vol] 89.5 fL 81-99 [facility] Manual differential comment Nahid (Bld) [Interp]Ordered By: Nigel Rivera on 06-25-2024 Differential Comment SCANNED [facility] Mean corpuscular hemoglobin (MCH) determinationOrdered By: Nigel Rivera on 06-25-2024 MCH (RBC) [Entitic mass] 29.5 pg 27.0-32.0 [facility] Mean corpuscular hemoglobin concentration (MCHC) determinationOrdered By: Nigel Rivera on 06-25-2024 MCHC (RBC) [Mass/Vol] 33.0 g/dL 32-36 [facility] Mean platelet volume determi nationOrdered By: Nigel Rivera on 06-25-2024 Platelet mean volume (Bld) [Entitic vol] 11.3 fL 6.2-12.0 [facility] Microscopic analysis of urin e for red blood cells (RBC)Ordered By: Nigel Rivera on 06-25-2024 Urine RBC 0 SEEN /hpf 0-5 [facility] Monocyte percentageOrdered B y: Nigel Rivera on 06-25-2024 Monocytes/100 WBC (Bld) 6.0 % 0-10 [facility] Mucus LM Ql (Urine sed)Order ed By: Nigel Rivera on 06-25-2024 Mucus Ql (Urine sed) 1+ /hpf [facility] Neutrophil percentageOrdered By: Nigel Rivera on 06-25-2024 Neutrophils/100 WBC (Bld) 37.6 % Low 47-70 [facility] Nitrite Test strip Ql (U)Ord ered By: Nigel Rivera on 06-25-2024 Nitrite Ql (U) Negative Negative [facility] Nucleated red blood cell per centageOrdered By: Nigel Rivera on 06-25-2024 Nucleated RBC/100 WBC (Bld) [Ratio] 0 % 0-5 [facility] Platelet countOrdered By: Pedrito Rivera on 06-25-2024 Platelets (Bld) [#/Vol] 207 10*3/uL 150-450 [facility] Potassium measurementOrdered By: Nigel Rivera on 06-25-2024 Potassium [Moles/Vol] 4.1 mmol/L 3.5-5.1 [facility] ,Serum,hCG Quali.on 06-25-2024 HCG, SERUM QUAL Negative Normal [facility] Comment on above: Performed By: #### L 700.6800 #### [facility] [address] [place], [address] Protein Test strip Ql (U)Ord ered By: Nigel Rivera on 06-25-2024 Protein Ql (U) 15 mg/dl High Negative [facility] RBC Auto (Bld) [#/Vol]Ordere d By: Nigel Rivera on 06-25-2024 RBC (Bld) [#/Vol] 4.37 10*6/uL 4.2-5.4 [facility] Serum anion gap measurementO rdered By: Nigel Rivera on 06-25-2024 Anion gap [Moles/Vol] 7 mmol/L 5-15 [facility] Serum globulin measurementOr dered By: Nigel Rivera on 06-25-2024 Globulin (S) [Mass/Vol] 2.7 g/dL 2.2-4.2 [facility] Serum or plasma alanine finley otransferase (ALT) measurementOrdered By: Nigel Rivera on 06-25-2024 ALT [Catalytic activity/Vol] 18 U/L 13-56 [facility] Serum or plasma albumin honey urement (mass/volume)Ordered By: Nigel Rivera on 06-25-2024 Albumin [Mass/Vol] 3.4 g/dL 3.2-5.0 [facility] Serum or plasma alkaline kalyani sphatase measurementOrdered By: Nigel Rivera on 06-25-2024 ALP [Catalytic activity/Vol] 59 U/L 45-117 [facility] Serum or plasma calcium honey urement (mass/volume)Ordered By: Nigel Rivera on 06-25-2024 Calcium [Mass/Vol] 9.2 mg/dL 8.5-10.1 [facility] Serum or plasma creatinine m easurement (mass/volume)Ordered By: Nigel Rivera on 06-25-2024 Creatinine [Mass/Vol] 0.87 mg/dL 0.55-1.02 [facility] Comment on above: The validity of the calculated GFR & GFRAA in patients over 70 years has not been determined. Clinical correlation is essential. Serum or plasma urea nitroge n measurement (mass/volume)Ordered By: Nigel Rivera on 06-25-2024 Urea nitrogen [Mass/Vol] 13 mg/dL 7-18 [facility] Sodium levelOrdered By: Nigel Rivera on 06-25-2024 Sodium [Moles/Vol] 140 mmol/L 136-145 [facility] Total proteinOrdered By: Freda Rivera on 06-25-2024 Protein [Mass/Vol] 6.1 g/dL Low 6.4-8.2 [facility] Urinalysis, Completeon 06-25 BACTERIA 3+ /hpf Normal None Seen [facility] Comment on above: Order Comment: CLEAN CATCH Performed By: #### L 400.0001 #### [facility] [address] [place], [address] EPI,SQUAMOUS 50-100 SEEN Normal 5-10 [facility] Comment on above: Order Comment: CLEAN CATCH Performed By: #### L 400.0001 #### [facility] [address] [place], [address] Mucus Ql (Urine sed) 1+ /hpf Normal [facility] Comment on above: Order Comment: CLEAN CATCH Performed By: #### L 400.0001 #### [facility] [address] [place], [address] WBC 50-100 SEEN Normal 0-5 [facility] Comment on above: Order Comment: CLEAN CATCH Performed By: #### L 400.0001 #### [facility] [address] [place], [address] BILIRUBIN URINE Negative Normal Negative [facility] Comment on above: Order Comment: CLEAN CATCH Performed By: #### L 400.0001 #### [facility] [address] [place], [address] Clarity (U) Sl. Cloudy Normal Clear [facility] Comment on above: Order Comment: CLEAN CATCH Performed By: #### L 400.0001 #### [facility] [address] [place], [address] Color (U) Straw Normal Yellow [facility] Comment on above: Order Comment: CLEAN CATCH Performed By: #### L 400.0001 #### [facility] [address] [facility] [address] GLUCOSE, UR Normal Normal Normal [facility] Comment on above: Order Comment: CLEAN CATCH Performed By: #### L 400.0001 #### [facility] [address] [place] [id number] KETONE UR Negative Normal Negative [facility] Comment on above: Order Comment: CLEAN CATCH Performed By: #### L 400.0001 #### [facility] [address] [place], [address] LEUK ESTERASE 100 /ul Abnormal Negative [facility] Comment on above: Order Comment: CLEAN CATCH Performed By: #### L 400.0001 #### [facility] [address] [facility] [address] Nitrite Ql (U) Negative Normal Negative [facility] Comment on above: Order Comment: CLEAN CATCH Performed By: #### L 400.0001 #### [facility] [address] [place], [address] OCCULT BLOOD-UR Negative Normal Negative [facility] Comment on above: Order Comment: CLEAN CATCH Performed By: #### L 400.0001 #### [facility] [address] [place], [address] pH UR 6.0 Normal 5.0 - 8.0 [facility] Comment on above: Order Comment: CLEAN CATCH Performed By: #### L 400.0001 #### [facility] [address] [place], [address] PROT DIPSTX 15 mg/dl Abnormal Negative [facility] Comment on above: Order Comment: CLEAN CATCH Performed By: #### L 400.0001 #### [facility] [address] [place] [address] SP.GR. DIPSTX 1.030 Normal 1.002-1.030 [facility] Comment on above: Order Comment: CLEAN CATCH Performed By: #### L 400.0001 #### [facility] [address] [place] [address] UROBILI 1 mg/dl Abnormal Normal [facility] Comment on above: Order Comment: CLEAN CATCH Performed By: #### L 400.0001 #### [facility] [address] [place] [address] RBC 0 SEEN Normal 0-5 [facility] Comment on above: Order Comment: CLEAN CATCH Performed By: #### L 400.0001 #### [facility] [address] [place], [address] Urine blood detectionOrdered By: Nigel Rivera on 06-25-2024 Urine Occult Blood Negative Negative [facility] Urine clarityOrdered By: Freda Rivera on 06-25-2024 Clarity (U) Sl. Cloudy Clear [facility] Urine color determinationOrd ered By: Nigel Rivera on 06-25-2024 Color (U) Straw Yellow [facility] Urine leukocyte esterase det ection by dipstickOrdered By: Nigel Rivera on 06-25-2024 Leukocyte esterase Test strip Ql (U) 100 /ul High Negative [facility] Urine pHOrdered By: Nigel del valle on 06-25-2024 pH (U) 6.0 [pH] 5.0 - 8.0 [facility] Urine sediment bacteria coun t by microscopy (number/high power field)Ordered By: Nigel Rivera on 06-25-2024 Bacteria LM.HPF (Urine sed) [#/Area] 3 /[HPF] None Seen [facility] Urine specific gravity measu rementOrdered By: Nigel Yehisaak on 06-25-2024 Specific gravity (U) [Rel density] 1.030 1.002-1.030 [facility] Urobilinogen Ql (U)Ordered B y: Nigel Rivera on 06-25-2024 Urobilinogen (U) [Mass/Vol] 1 mg/dL High Normal [facility] White blood cell (WBC) count Ordered By: Nigel Rivera on 06-25-2024 WBC (Bld) [#/Vol] 12.7 10*3/uL High 4.4-11.0 [facility] [place] blood cell countOrdere d By: Nigel Rivera on 06-25-2024 Urine WBC 50-100 SEEN /hpf 0-5 [facility]PShel[facility]-20[facility] OTTONIEL OSMAN ([id number]) 2000 F Date Time Provider Department 05/20/24 JAGDISH METZGER [facility] During your visit today, we recorded the following information about you: Jagdish Metzger APRN.CNP 05/20/2024 7:18 AM Signed Please inform patient that STD panel was negative. Follow-up with TALENT ACQUISITION COORDINATOR or PCP as needed. Jagdish Metzger APRN.Yolanda Pastrana [facility] 05/20/2024 9:39 AM Signed TC to [...] Status:Closed by Cecilia GAITAN on 05/20/24 Normal [facility] C. trachomatis+N. gonorrhoea e DNA ANURADHA+probe Ql (Unsp spec)on 05-19-2024 C. trachomatis rRNA ANURADHA+probe Ql (Unsp spec) Not detected Normal Not detected [facility] Comment on above: Order Comment: Speci men Type: SWABOrdering Facility: [facility] Address: [address] [place] [address] Performed By: #### C VTV, 65755-7 ####[facility] LABCLIA [id number] [place] [address] [place] N. gonorrhoeae rRNA ANURADHA+probe Ql (Unsp spec) Not detected Normal Not detected [facility] Comment on above: Order Comment: Speci men Type: SWABOrdering Facility: [facility] Address: [address] [place] [address] Performed By: #### C VTV, 70176-9 ####[facility] LABIA [id number] [place] [address] [place] TRACEY/TRICHOMONAS NAATon 1 07-20-2023 C. glabrata RNA ANURADHA+probe Ql (Vag fld) Not detected Normal Not detected [facility] Comment on above: Order Comment: Speci men Type: SWABOrdering Facility: [facility] Address: [address] [place] [address] Performed By: #### C VTV, 53204-4 ####[facility] LABCLIA [id number] [place] [address] [place] Tracey sp DNA ANURADHA+probe Ql (Vag fld) Not detected Normal Not detected [facility] Comment on above: Order Comment: Speci men Type: SWABOrdering Facility: [facility] Address: [address] [place] [address] Result Comment: The Tracey species group target includes C. albicans, C. tropicalis, C. parapsilosis, and C. dubliniensis. Performed By: #### C VTV, 18810-5 ####[facility] LABCLIA [id number] [place] [address] [place] T. vaginalis DNA ANURADHA+probe Ql (Unsp spec) Not detected Normal Not detected [facility] Comment on above: Order Comment: Speci men Type: SWABOrdering Facility: [facility] Address: [address] [place] [address] Performed By: #### C VTV, 47444-1 ####[facility] LABCLIA [id number] [address] [place] CNOVon 05-19-2024 CNOV Office Visit ([facility] ) OTTONIEL OSMAN ([id number]) 2000 F Date Time Provider Department 05/19/24 11:00 AM JESSE ARRIAZA [facility] During your visit today, we recorded the following information about you: Temperature Pulse Respiration Blood pressure 98.2 degrees 78/minute 22/minute 102/68 Weight 58.3 kg Jesse Arriaza PA-C 05/19/2024 11:32 AM Signed This note was created using [employer]. Subjective Ottoniel Osman is a 24 year [...] [Z11.3] Order(s):GONORRHEA/CHLA MYDIA NAAT [SQGCCT] Order #: [id number]. #:[id number] SYPHILIS TREPONEMAL W/REFLEX [SQSYPHTX] Order #: [id number] FUTURE HIV 1/2 COMBO WITH REFLEX TO DIFFERENTIATION [SQHIV12] Order #: [id number] FUTURE HEPATITIS C ANTIBODY IA WITH CONFIRMATION [EHHDTP3W] Order #: [id number] FUTURE HEPATITI (more content not included)... Normal [facility] HBV surface Ag Ser Qlon 05-09 HBV surface Ag Ql (S) Negative Normal Negative [facility] Comment on above: Order Comment: Speci men Type: BLOOD SPECIMENOrdering Facility: [facility] Address: [address] [place] [address] Performed By: #### 3 1201-7, 03059-6, 5195-3 ####[facility] LABCLIA [id number] [place] [address] [place] HCV Ab Ser Qlon 05-19-2024 HCV Ab Ql (S) Negative Normal Negative [facility] Comment on above: Order Comment: Speci men Type: BLOOD SPECIMENOrdering Facility: [facility] Address: [address] [place] [address] Result Comment: The result suggests no evidence of active infection with Hepatitis C virus. Should recent infection be suspected, repeat testing may be considered 4-6 weeks after this draw. Performed By: #### 1 6128-1 ####[facility] LABCLIA [id number] [place] [address] [place] HIV 1+2 Ab IA Qlon HIV 1 and 2 Ab IA.rapid Nom (S/P/Bld) Normal [facility] Comment on above: Order Comment: Speci men Type: BLOOD SPECIMENOrdering Facility: [facility] Address: [address] [place] [address] Result Comment: Test not indicated. Performed By: #### 3 1201-7, 98280-7, 5195-3 ####[facility] LABIA [id number] [place] [address] [place] HIV 1+2 Ab+HIV1 p24 Ag IA Ql Non-Reactive Normal Nonreactive [facility] Comment on above: Order Comment: Speci men Type: BLOOD SPECIMENOrdering Facility: [facility] Address: [address] [place] [address] Performed By: #### 3 1201-7, 56733-1, 5195-3 ####[facility] LABIA [id number] [place] [address] [place] HIV immunoassay testing algorithm interpretation (S/P/Bld) [Interp] Normal [facility] Comment on above: Order Comment: Speci men Type: BLOOD SPECIMENOrdering Facility: [facility] Address: [address] [place] [address] Result Comment: No e vidence of HIV-1 or HIV-2 infection. Should recent infection be suspected, repeat testing may be considered 2-3 weeks after this draw. [place] Rev. Code 3701.243(E): This information has been [...] test results or diagnoses. Performed By: #### 3 1201-7, 70225-7, 5195-3 ####[facility] LABCLIA [id number] [place] [address] [place] Reagin and Treponema pallidu m IgG and IgM [Interp]on 05-19-2024 T. pallidum IgG+IgM IA Ql (S) Non-Reactive Normal Nonreactive [facility] Comment on above: Order Comment: Speci men Type: BLOOD SPECIMENOrdering Facility: [facility] Address: [address] [place] [address] Performed By: #### 3 1201-7, 14411-0, 5194-3 ####[facility] LABIA [id number] [place] [id number] [place] Reagin+T pallidum IgG+IgM Se rPl-Impon 05-19-2024 Reagin and Treponema pallidum IgG and IgM [Interp] Cannot exclude recent Treponemal infection if specimen collected within 7-10 days after appearance of suspect lesions or 2-3 weeks after an exposure. Clinical correlation is required. Normal [facility] Comment on above: Order Comment: Speci men Type: BLOOD SPECIMENOrdering Facility: [facility] Address: [address] [place] [address] Performed By: #### 3 1201-7, 75359-1, 5195-3 ####[facility] LABCLIA [id number] [place] [id number] [place] UA DIP, URINE (POC)on 2023 BILIRUBIN UA (POCT) Negative Negative [facility] CLARITY UA (POCT) Clear [facility] COLOR UA (POCT) [place] [facility] GLUCOSE UA (POCT) 100 mg/dL Abnormal Negative [facility] Hemoglobin Ql (U) Trace-intact Abnormal Negative [facility] Interpretation and review of laboratory results Abnormal [facility] KETONE UA (POCT) Trace Negative mg/dL [facility] LEUKOCYTES UA (POCT) Large Abnormal Negative [facility] NITRITE UA (POCT) Positive Abnormal Negative [facility] PH UA (POCT) 6.5 4.5 - 8.0 [facility] Protein Ql (U) 30 mg/dL Abnormal Negative [facility] SPECIFIC GRAVITY UA (POCT) 1.010 1.005 - 1.030 [facility] UROBILINOGEN UA (POCT) 2.0 Abnormal Normal E.U./d L [facility] Location:[address], [place], [place], [address] [place] [address] POINT OF CARE [facility] Absolute lymphocyte countOrd ered By: Horace Frausto on 10-15-2023 Lymphocytes Auto (Unsp spec) [#/Vol] 1.89 10*3/uL 0.83-4.51 [facility] Automated lymphocyte count a s percentage of total leukocytesOrdered By: Horace Frausto on 10-15-2023 Lymphocytes/100 WBC Auto (Unsp spec) 12.7 % 19-41 [facility] Basophil percentageOrdered B y: Horace Frausto on 10-15-2023 Basophil percentage 0 SEEN /hpf 0-5 [facility] Basophils/100 WBC (Bld) 0.4 % 0-1 [facility] Bilirubin [Mass/Vol] 0.50 mg/dL 0.20-1.00 [facility] Comment on above: For patients on eltr ombopag therapy, use of Dimension [place] TBIL is not recommended. Chloride [Moles/Vol] 110 mmol/L 98-107 [facility] Eosinophils/100 WBC (Bld) 2.0 % 0-5 [facility] Glucose [Mass/Vol] 116 mg/dL 74-106 [facility] Comment on above: Fasting Glucose resu lt from 100 to 125 mg/dL suggests IMPAIRED HOMEOSTASIS per A.D.A. criteria. Hemoglobin (Bld) [Mass/Vol] 13.9 g/dL 12.0-15.0 [facility] Monocytes/100 WBC (Bld) 3.5 % 0-10 [facility] Neutrophils (Bld) [#/Vol] 12.0 10*3/uL 2.0-7.7 [facility] Neutrophils/100 WBC (Bld) 81.0 % 47-70 [facility] Potassium [Moles/Vol] 3.7 mmol/L 3.5-5.1 [facility] Protein [Mass/Vol] 7.4 g/dL 6.4-8.2 [facility] Sodium [Moles/Vol] 139 mmol/L 136-145 [facility] WBC (Bld) [#/Vol] 14.9 10*3/uL 4.4-11.0 [facility] Bilirubin Test strip Ql (U)O rdered By: Horace Frausto on 10-15-2023 Bilirubin Ql (U) Negative Negative [facility] Determination of erythrocyte mean corpuscular volume (MCV)Ordered By: Horace Frausto on 10-15-2023 MCV (RBC) [Entitic vol] 88.7 fL 81-99 [facility] Erythrocyte distribution wid th ratioOrdered By: Horace Frausto on 10-15-2023 Erythrocyte distribution width (RBC) [Ratio] 12.4 % 11.6-14.6 [facility] Erythrocyte distribution wid th standard deviationOrdered By: Horace Frausto on 10-15-2023 Erythrocyte distribution width (RBC) [Entitic vol] 40.9 fL 35.1-43.9 [facility] Hematocrit Auto (Bld) [Volum e fraction]Ordered By: Horace Frausto on 10-15-2023 Hematocrit (Bld) [Volume fraction] 42.5 % 37-47 [facility] Immature granulocytes/100 WB C Auto (Bld)Ordered By: Horace Frausto on 10-15-2023 Immature granulocytes/100 WBC (Bld) 0.400 % 0.0-0.9 [facility] Comment on above: IG% - Immature Granu locytes (promyelocytes, myelocytes and metamyelocytes) > 1% indicates that a LEFT SHIFT is Present. Ketones Test strip Ql (U)Ord ered By: Horace Frausto on 10-15-2023 Ketones Ql (U) Negative Negative [facility] Laboratory - Chemistry and C hemistry - challengeOrdered By: Horace Frausto on 10-15-2023 Albumin/Globulin [Mass ratio] 1.2 {ratio} 0.9-2.4 [facility] ALP [Catalytic activity/Vol] 70 U/L 45-117 [facility] ALT [Catalytic activity/Vol] 17 U/L 13-56 [facility] CO2 [Moles/Vol] 24.0 mmol/L 21.0-32.0 [facility] Globulin (S) [Mass/Vol] 3.3 g/dL 2.2-4.2 [facility] Urea nitrogen/Creatinine [Mass ratio] 11.7 mg/mg 10-20 [facility] Laboratory - Hematology and Cell countsOrdered By: Horace Frausto on 10-15-2023 MCH (RBC) [Entitic mass] 29.0 pg 27.0-32.0 [facility] MCHC (RBC) [Mass/Vol] 32.7 g/dL 32-36 [facility] Nucleated RBC/100 WBC (Bld) [Ratio] 0 % 0-5 [facility] Platelet mean volume (Bld) [Entitic vol] 11.5 fL 6.2-12.0 [facility] Platelets (Bld) [#/Vol] 202 10*3/uL 150-450 [facility] Mucus LM Ql (Urine sed)Order ed By: Horace Frausto on 10-15-2023 Mucus Ql (Urine sed) 0 SEEN /hpf [facility] Nitrite Test strip Ql (U)Ord ered By: Horace Frausto on 10-15-2023 Nitrite Ql (U) Negative Negative [facility] No Panel InformationOrdered By: Horace Frausto on 10-15-2023 Urine RBC 0 SEEN /hpf 0-5 [facility] Estimated Creatinine Clearance Calc 79.69 ml/min [facility] Estimated GFR (MDRD) Amer 94 mL/min >60 [facility] Comment on above: GFR Calc Estimated GFR (MDRD) Non-Af Amer 78 mL/min >60 [facility] Comment on above: Non- GFR Calc Protein Test strip Ql (U)Ord ered By: Horace Frausto on 10-15-2023 Protein Ql (U) 30 mg/dl Negative [facility] RBC Auto (Bld) [#/Vol]Ordere d By: Horace Frausto on 10-15-2023 RBC (Bld) [#/Vol] 4.79 10*6/uL 4.2-5.4 [facility] Serum or plasma calcium honey urement (mass/volume)Ordered By: Horace Frausto on 10-15-2023 Calcium [Mass/Vol] 9.6 mg/dL 8.5-10.1 [facility] Serum or plasma choriogonado tropin detectionOrdered By: Horace Frausto on 10-15-2023 HCG ( test) Ql Negative [facility] Serum or plasma creatinine m easurement (mass/volume)Ordered By: Horace Frausto on 10-15-2023 Creatinine [Mass/Vol] 0.94 mg/dL 0.55-1.02 [facility] Comment on above: The validity of the calculated GFR & GFRAA in patients over 70 years has not been determined. Clinical correlation is essential. Serum or plasma urea nitroge n measurement (mass/volume)Ordered By: Horace Frausto on 10-15-2023 Urea nitrogen [Mass/Vol] 11 mg/dL 7-18 [facility] Squamous epithelial cells de tection in urine sediment by light microscopyOrdered By: Horace Frausto on 10-15-2023 Epithelial cells.squamous LM Ql (Urine sed) 0-5 SEEN /hpf 5-10 [facility] Thin prep Papanicolaou smear with manual screeningOrdered By: Horace Frausto on 10-15-2023 Thin prep Papanicolaou smear with manual screening 4.1 g/dL 3.2-5.0 [facility] Thin prep Papanicolaou smear with manual screening 11 U/L 15-37 [facility] Thin prep Papanicolaou smear with manual screening 5 5-15 [facility] Urine blood detectionOrdered By: Horace Frausto on 10-15-2023 RBC Ql (U) Negative Negative [facility] Urine clarityOrdered By: Rocky Frausto on 10-15-2023 Clarity (U) Sl. Cloudy Clear [facility] Urine color determinationOrd ered By: Horace Frausto on 10-15-2023 Color (U) Yellow Yellow [facility] Urine glucose detectionOrder ed By: Horace Frausto on 10-15-2023 Glucose Ql (U) Normal mg/dl Normal [facility] Urine leukocyte esterase det ection by dipstickOrdered By: Horace Frausto on 10-15-2023 Leukocyte esterase Test strip Ql (U) Negative Negative [facility] Urine pHOrdered By: Horace Woods ght on 10-15-2023 pH (U) 6.5 [pH] 5.0 - 8.0 [facility] Urine sediment bacteria coun t by microscopy (number/high power field)Ordered By: Horace Frausto on 10-15-2023 Bacteria LM.HPF (Urine sed) [#/Area] 0 /[HPF] None Seen [facility] Urine specific gravity measu rementOrdered By: Horace Frausto on 10-15-2023 Specific gravity (U) [Rel density] 1.010 1.002-1.030 [facility] Urine urobilinogen measureme ntOrdered By: Horace Frausto on 10-15-2023 Urobilinogen Ql (U) Normal mg/dl Normal [facility] UA DIP, URINE (POC)on 2023 BILIRUBIN UA (POCT) Negative Negative [facility] CLARITY UA (POCT) Clear [facility] COLOR UA (POCT) Yellow [facility] GLUCOSE UA (POCT) Negative Negative mg/dL [facility] Hemoglobin Ql (U) Trace-intact Abnormal Negative [facility] Interpretation and review of laboratory results Abnormal [facility] KETONE UA (POCT) Negative Negative mg/dL [facility] LEUKOCYTES UA (POCT) Trace Abnormal Negative [facility] NITRITE UA (POCT) Positive Abnormal Negative [facility] PH UA (POCT) 6.0 4.5 - 8.0 [facility] Protein Ql (U) Trace Abnormal Negative mg/dL [facility] SPECIFIC GRAVITY UA (POCT) 1.020 1.005 - 1.030 [facility] UROBILINOGEN UA (POCT) 1.0 Normal E.U./d L [facility] Location:[facility], [address] [place] [address], [place], [address] [facility] POINT OF CARE [facility] Absolute lymphocyte countOrd ered By: Ever Hanks on 06-27-2023 Lymphocytes Auto (Unsp spec) [#/Vol] 3.46 10*3/uL 0.83-4.51 [facility] Automated lymphocyte count a s percentage of total leukocytesOrdered By: Ever Hanks on 06-27-2023 Lymphocytes/100 WBC Auto (Unsp spec) 38.9 % 19-41 [facility] Basophil percentageOrdered B y: Ever Hanks on 06-27-2023 Basophils/100 WBC (Bld) 0.9 % 0-1 [facility] Bilirubin [Mass/Vol] 0.20 mg/dL 0.20-1.00 [facility] Comment on above: For patients on eltr ombopag therapy, use of Dimension [place] TBIL is not recommended. Chloride [Moles/Vol] 113 mmol/L 98-107 [facility] Eosinophils/100 WBC (Bld) 8.8 % 0-5 [facility] Glucose [Mass/Vol] 87 mg/dL 74-106 [facility] Hemoglobin (Bld) [Mass/Vol] 12.7 g/dL 12.0-15.0 [facility] Monocytes/100 WBC (Bld) 6.7 % 0-10 [facility] Neutrophils (Bld) [#/Vol] 4.0 10*3/uL 2.0-7.7 [facility] Neutrophils/100 WBC (Bld) 44.4 % 47-70 [facility] Potassium [Moles/Vol] 4.1 mmol/L 3.5-5.1 [facility] Protein [Mass/Vol] 6.5 g/dL 6.4-8.2 [facility] Sodium [Moles/Vol] 142 mmol/L 136-145 [facility] WBC (Bld) [#/Vol] 8.9 10*3/uL 4.4-11.0 [facility] Basophil percentage 0-5 SEEN /hpf 0-5 [facility] Bilirubin Test strip Ql (U)O rdered By: Ever Hanks on 06-27-2023 Bilirubin Ql (U) 1 mg/dL Negative [facility] Comment on above: COLOR OF URINE MAY A FFECT DIPSTICK RESULTS. Determination of erythrocyte mean corpuscular volume (MCV)Ordered By: Ever Hanks on 06-27-2023 MCV (RBC) [Entitic vol] 88.9 fL 81-99 [facility] Erythrocyte distribution wid th ratioOrdered By: Ever Hanks on 06-27-2023 Erythrocyte distribution width (RBC) [Ratio] 12.2 % 11.6-14.6 [facility] Erythrocyte distribution wid th standard deviationOrdered By: Ever Hanks on 06-27-2023 Erythrocyte distribution width (RBC) [Entitic vol] 39.9 fL 35.1-43.9 [facility] Hematocrit Auto (Bld) [Volum e fraction]Ordered By: Ever Hanks on 06-27-2023 Hematocrit (Bld) [Volume fraction] 38.5 % 37-47 [facility] Immature granulocytes/100 WB C Auto (Bld)Ordered By: Ever Hanks on 06-27-2023 Immature granulocytes/100 WBC (Bld) 0.300 % 0.0-0.9 [facility] Comment on above: IG% - Immature Granu locytes (promyelocytes, myelocytes and metamyelocytes) > 1% indicates that a LEFT SHIFT is Present. Ketones Test strip Ql (U)Ord ered By: Ever Hanks on 06-27-2023 Ketones Ql (U) 5 mg/dl Negative [facility] Laboratory - Chemistry and C hemistry - challengeOrdered By: Ever Hanks on 06-27-2023 Albumin/Globulin [Mass ratio] 1.2 {ratio} 0.9-2.4 [facility] ALP [Catalytic activity/Vol] 62 U/L 45-117 [facility] ALT [Catalytic activity/Vol] 15 U/L 13-56 [facility] CO2 [Moles/Vol] 26.0 mmol/L 21.0-32.0 [facility] Globulin (S) [Mass/Vol] 2.9 g/dL 2.2-4.2 [facility] Lipase [Catalytic activity/Vol] 28 U/L 13-75 [facility] Comment on above: Please note:LIPASE r evised reference range effective 22. New Lipase methodology. Expected to produce lower values than the previous assay method. NEW Reference Range: 13 - 75 U/L Urea nitrogen/Creatinine [Mass ratio] 9.2 mg/mg 10-20 [facility] Laboratory - Hematology and Cell countsOrdered By: Ever Hanks on 06-27-2023 MCH (RBC) [Entitic mass] 29.3 pg 27.0-32.0 [facility] MCHC (RBC) [Mass/Vol] 33.0 g/dL 32-36 [facility] Nucleated RBC/100 WBC (Bld) [Ratio] 0 % 0-5 [facility] Platelets (Bld) [#/Vol] 188 10*3/uL 150-450 [facility] Mucus LM Ql (Urine sed)Order ed By: Ever Hanks on 06-27-2023 Mucus Ql (Urine sed) 0 SEEN /hpf [facility] Nitrite Test strip Ql (U)Ord ered By: Ever Hanks on 06-27-2023 Nitrite Ql (U) Negative Negative [facility] No Panel InformationOrdered By: Ever Hanks on 06-27-2023 Estimated Creatinine Clearance Calc 76.44 ml/min [facility] Estimated GFR (MDRD) Amer 89 mL/min >60 [facility] Comment on above: GFR Calc Estimated GFR (MDRD) Non-Af Amer 74 mL/min >60 [facility] Comment on above: Non- GFR Calc Urine RBC 0 SEEN /hpf 0-5 [facility] Platelet mean volume Rob-Ec ker (Bld) [Entitic vol]Ordered By: Ever Hanks on 06-27-2023 Platelet mean volume (Bld) [Entitic vol] 11.6 fL 6.2-12.0 [facility] Protein Test strip Ql (U)Ord ered By: Ever Hanks on 06-27-2023 Protein Ql (U) 30 mg/dl Negative [facility] RBC Auto (Bld) [#/Vol]Ordere d By: Ever Hanks on 06-27-2023 RBC (Bld) [#/Vol] 4.33 10*6/uL 4.2-5.4 [place] [facility] Serum or plasma calcium honey urement (mass/volume)Ordered By: Ever Hanks on 06-27-2023 Calcium [Mass/Vol] 8.8 mg/dL 8.5-10.1 [facility] Serum or plasma choriogonado tropin detectionOrdered By: Ever Hanks on 06-27-2023 HCG ( test) Ql Negative [facility] Serum or plasma creatinine m easurement (mass/volume)Ordered By: Ever Hanks on 06-27-2023 Creatinine [Mass/Vol] 0.98 mg/dL 0.55-1.02 [facility] Comment on above: The validity of the calculated GFR & GFRAA in patients over 70 years has not been determined. Clinical correlation is essential. Serum or plasma urea nitroge n measurement (mass/volume)Ordered By: Ever Hanks on 06-27-2023 Urea nitrogen [Mass/Vol] 9 mg/dL 7-18 [facility] Squamous epithelial cells de tection in urine sediment by light microscopyOrdered By: Ever Hanks on 06-27-2023 Epithelial cells.squamous LM Ql (Urine sed) 5-10 SEEN /hpf 5-10 [facility] Thin prep Papanicolaou smear with manual screeningOrdered By: Ever Hanks on 06-27-2023 Thin prep Papanicolaou smear with manual screening 3.6 g/dL 3.2-5.0 [facility] Thin prep Papanicolaou smear with manual screening 8 U/L 15-37 [facility] Thin prep Papanicolaou smear with manual screening 3 5-15 [facility] Urine blood detectionOrdered By: Ever Hanks on 06-27-2023 RBC Ql (U) 10 /ul Negative [facility] Urine clarityOrdered By: Raúl Hanks on 06-27-2023 Clarity (U) Clear Clear [facility] Urine color determinationOrd ered By: Ever Hanks on 06-27-2023 Color (U) Yellow Yellow [facility] Urine glucose detectionOrder ed By: Ever Hanks on 06-27-2023 Glucose Ql (U) Normal mg/dl Normal [facility] Urine leukocyte esterase det ection by dipstickOrdered By: Ever Hanks on 06-27-2023 Leukocyte esterase Test strip Ql (U) 25 /ul Negative [facility] Urine pHOrdered By: Ever woodson on 06-27-2023 pH (U) 6.0 [pH] 5.0 - 8.0 [facility] Urine sediment bacteria coun t by microscopy (number/high power field)Ordered By: Ever Hanks on 06-27-2023 Bacteria LM.HPF (Urine sed) [#/Area] 0 /[HPF] None Seen [facility] Urine specific gravity measu rementOrdered By: Ever Hanks on 06-27-2023 Specific gravity (U) [Rel density] 1.020 1.002-1.030 [facility] Urine urobilinogen measureme ntOrdered By: Ever Hanks on 06-27-2023 Urobilinogen Ql (U) 4 mg/dl Normal [facility] [place] DIP, URINE (POC)on 2022 BILIRUBIN UA (POCT) Negative Negative [facility] CLARITY [facility] (POCT) [facility] COLOR UA (POCT) Yellow [facility] GLUCOSE UA (POCT) Negative Negative mg/dL [facility] Hemoglobin Ql (U) Negative Negative [facility] KETONE UA (POCT) Negative Negative mg/dL [facility] LEUKOCYTES UA (POCT) Trace Abnormal Negative [facility] NITRITE UA (POCT) Negative Negative [facility] PH UA (POCT) 6.5 4.5 - 8.0 [facility] Protein Ql (U) Negative Negative mg/dL [facility] SPECIFIC GRAVITY UA (POCT) >=1.030 1.005 - 1.030 [facility] UROBILINOGEN UA (POCT) 0.2 E.U./dL Normal E.U./ dL [facility] XR RIBS/CHEST 3V AP RIB/OBLS /CXR RIGHTon 03-03-2023 [facility] XR Ribs - right Views and est PAon 03-03-2023 IMPRESSION: Possible nondisplaced fracture of the lateral right seventh rib. No pneumothorax. [employer] Operator: ALEISHA Transcribe Date/Time: Mar 03 2023 4:41P Dictated by : MARGARET SNYDER MD This examination was interpreted and the report reviewed and electronically signed by: MARGARET SNYDER MD on Mar 03 2023 4:44PM [facility] DIVISION OF RADIOLOGY * * *Final [...] seventh rib DIVISION OF RADIOLOGY Provider, Tavia Peraza [facility] - 03/03/2023 * * *Final Report* * [...] the lateral right seventh rib. No pneumothorax. [employer] Operator: PSCB Transcribe Date/Time: Mar 03 2023 4:41P Dictated by : MARGARET SNYDER MD This examination was interpreted and the report reviewed and electronically signed by: MARGARET SNYDER MD on Mar 03 2023 4:44PM EST [facility] Radiology Study observation (narrative) [facility] XR Ribs - right Views and Ch est PAOrdered By: [facility] Provider on 03-03-2023 [facility] Absolute lymphocyte countOrd ered By: Kirby Camara on 02-09-2023 Lymphocytes Auto (Unsp spec) [#/Vol] 2.33 10*3/uL 0.83-4.51 [facility] Basophil percentageOrdered B y: Kirby Camara on 02-09-2023 Basophil percentage 0-5 SEEN /hpf 0-5 [facility] Basophils/100 WBC (Bld) 0.5 % 0-1 [facility] Bilirubin [Mass/Vol] 0.70 mg/dL 0.20-1.00 [facility] Comment on above: For patients on eltr ombopag therapy, use of Dimension [place] TBIL is not recommended. Chloride [Moles/Vol] 110 mmol/L 98-107 [facility] Eosinophils/100 WBC (Bld) 6.8 % 0-5 [facility] Glucose [Mass/Vol] 91 mg/dL 74-106 [facility] Neutrophils (Bld) [#/Vol] 6.4 10*3/uL 2.0-7.7 [facility] Neutrophils/100 WBC (Bld) 63.5 % 47-70 [facility] Potassium [Moles/Vol] 3.8 mmol/L 3.5-5.1 [facility] Protein [Mass/Vol] 7.0 g/dL 6.4-8.2 [facility] Sodium [Moles/Vol] 140 mmol/L 136-145 [facility] WBC (Bld) [#/Vol] 10.1 10*3/uL 4.4-11.0 [facility] Beta hCG serum qualOrdered B y: Kirby Camara on 02-09-2023 Beta HCG ( test) Ql Negative [facility] Bilirubin Test strip Ql (U)O rdered By: Kirby Camara on 02-09-2023 Bilirubin Ql (U) 1 mg/dL Negative [facility] Comment on above: COLOR OF URINE MAY A FFECT DIPSTICK RESULTS. Blood erythrocytes count (nu mber/volume)Ordered By: Kirby Camara on 02-09-2023 RBC (Bld) [#/Vol] 4.94 10*6/uL 4.2-5.4 [facility] Blood hemoglobin measurement (mass/volume)Ordered By: Kirby Camara on 02-09-2023 Hemoglobin (Bld) [Mass/Vol] 14.6 g/dL 12.0-15.0 [facility] Blood lymphocytes/100 leukoc ytesOrdered By: Kirby Camara on 02-09-2023 Lymphocytes/100 WBC (Bld) 23.0 % 19-41 [facility] Blood monocytes/100 leukocyt esOrdered By: Kirby Camara on 02-09-2023 Monocytes/100 WBC (Bld) 5.8 % 0-10 [facility] Blood platelet mean volumeOr dered By: Kirby Camara on 02-09-2023 Platelet mean volume (Bld) [Entitic vol] 11.1 fL 6.2-12.0 [facility] Determination of erythrocyte mean corpuscular volume (MCV)Ordered By: Kirby Camara on 02-09-2023 MCV (RBC) [Entitic vol] 88.5 fL 81-99 [facility] Direct bilirubinOrdered By: Kirby Camara on 02-09-2023 Bilirubin.direct [Mass/Vol] 0.18 mg/dL 0.00-0.30 [facility] Hematocrit Auto (Bld) [Volum e fraction]Ordered By: Kirby Camara on 02-09-2023 Hematocrit (Bld) [Volume fraction] 43.7 % 37-47 [facility] Ketones Test strip Ql (U)Ord ered By: Kirby Camara on 02-09-2023 Ketones Ql (U) 5 mg/dl Negative [facility] Laboratory - Chemistry and C hemistry - challengeOrdered By: Kirby Camara on 02-09-2023 ALP [Catalytic activity/Vol] 70 U/L 45-117 [facility] ALT [Catalytic activity/Vol] 16 U/L 13-56 [facility] CO2 [Moles/Vol] 26.0 mmol/L 21.0-32.0 [facility] Globulin (S) [Mass/Vol] 3.1 g/dL 2.2-4.2 [facility] Lipase [Catalytic activity/Vol] 66 U/L 13-75 [facility] Comment on above: Please note:LIPASE r evised reference range effective 22. New Lipase methodology. Expected to produce lower values than the previous assay method. NEW Reference Range: 13 - 75 U/L Urea nitrogen/Creatinine [Mass ratio] 12.3 mg/mg 10-20 [facility] Laboratory - Hematology and Cell countsOrdered By: Kirby Camara on 02-09-2023 Erythrocyte distribution width (RBC) [Entitic vol] 40.5 fL 35.1-43.9 [facility] Erythrocyte distribution width (RBC) [Ratio] 12.5 % 11.6-14.6 [facility] Immature granulocytes/100 WBC (Bld) 0.400 % 0.0-0.9 [facility] Comment on above: IG% - Immature Granu locytes (promyelocytes, myelocytes and metamyelocytes) > 1% indicates that a LEFT SHIFT is Present. MCH (RBC) [Entitic mass] 29.6 pg 27.0-32.0 [facility] Nucleated RBC/100 WBC (Bld) [Ratio] 0 % 0-5 [facility] MCHC Auto (RBC) [Mass/Vol]Or dered By: Kirby Camara on 02-09-2023 MCHC (RBC) [Mass/Vol] 33.4 g/dL 32-36 [facility] Mucus LM Ql (Urine sed)Order ed By: Kirby Camara on 02-09-2023 Mucus Ql (Urine sed) 0 SEEN /hpf [facility] Nitrite Test strip Ql (U)Ord ered By: Kirby Camara on 02-09-2023 Nitrite Ql (U) Negative Negative [facility] No Panel InformationOrdered By: Kirby Camara on 02-09-2023 Estimated Creatinine Clearance Calc 77.10 ml/min [facility] Estimated GFR (MDRD) Amer 90 mL/min >60 [facility] Comment on above: GFR Calc Estimated GFR (MDRD) Non-Af Amer 74 mL/min >60 [facility] Comment on above: Non- GFR Calc Platelets bldOrdered By: Red Camara on 02-09-2023 Platelets (Bld) [#/Vol] 186 10*3/uL 150-450 [facility] Protein Test strip Ql (U)Ord ered By: Kirby Camara on 02-09-2023 Protein Ql (U) 30 mg/dl Negative [facility] Serum or plasma albumin honey urement (mass/volume)Ordered By: Kirby Camara on 02-09-2023 Albumin [Mass/Vol] 3.9 g/dL 3.2-5.0 [facility] Serum or plasma calcium honey urement (mass/volume)Ordered By: Kirby Camara on 02-09-2023 Calcium [Mass/Vol] 9.1 mg/dL 8.5-10.1 [facility] Serum or plasma creatinine m easurement (mass/volume)Ordered By: Kirby Camara on 02-09-2023 Creatinine [Mass/Vol] 0.98 mg/dL 0.55-1.02 [facility] Comment on above: The validity of the calculated GFR & GFRAA in patients over 70 years has not been determined. Clinical correlation is essential. Serum or plasma urea nitroge n measurement (mass/volume)Ordered By: Kirby Camara on 02-09-2023 Urea nitrogen [Mass/Vol] 12 mg/dL 7-18 [facility] Squamous epithelial cells de tection in urine sediment by light microscopyOrdered By: Kirby Camara on 02-09-2023 Epithelial cells.squamous LM Ql (Urine sed) 0-5 SEEN /hpf 5-10 [facility] Thin prep Papanicolaou smear with manual screeningOrdered By: Kirby Camara on 02-09-2023 Thin prep Papanicolaou smear with manual screening 9 U/L 15-37 [facility] Thin prep Papanicolaou smear with manual screening 4 5-15 [facility] Urine blood detectionOrdered By: Kirby Camara on 02-09-2023 RBC Ql (U) Negative Negative [facility] RBC Ql (U) 0 SEEN /hpf 0-5 [facility] Urine clarityOrdered By: Red Camara on 02-09-2023 Clarity (U) Clear Clear [facility] Urine color determinationOrd ered By: Kirby Camara on 02-09-2023 Color (U) Yellow Yellow [facility] Urine glucose detectionOrder ed By: Kirby Camara on 02-09-2023 Glucose Ql (U) Normal mg/dl Normal [facility] Urine leukocyte esterase det ection by dipstickOrdered By: Kirby Camara on 02-09-2023 Leukocyte esterase Test strip Ql (U) 25 /ul Negative [facility] Urine pHOrdered By: Kirby michael on 02-09-2023 pH (U) 6.0 [pH] 5.0 - 8.0 [facility] Urine sediment bacteria coun t by microscopy (number/high power field)Ordered By: Kirby Camara on 02-09-2023 Bacteria LM.HPF (Urine sed) [#/Area] 0 /[HPF] None Seen [facility] Urine specific gravity measu rementOrdered By: Kirby Camara on 02-09-2023 Specific gravity (U) [Rel density] 1.020 1.002-1.030 [facility] Urobilinogen Auto test strip Ql (U)Ordered By: Kirby Camara on 02-09-2023 Urobilinogen Ql (U) Normal mg/dl Normal [facility] BACTERIAL VAGINOSIS NAATon 0 01-16-2023 Lactobacillus crispatus+gasseri+estephanie enii + Gardnerella vaginalis + Atopobium vaginae rRNA ANURADHA+probe Ql (Vag fld) Negative Negative for bacterial vaginosis [facility] TRACEY/TRICHOMONAS NAATon 0 01-16-2023 C. glabrata RNA ANURADHA+probe Ql (Vag fld) Negative Negative for Tracey glabrata [facility] Tracey sp DNA ANURADHA+probe Ql (Vag fld) Negative Negative for Tracey species [facility] T. vaginalis DNA ANURADHA+probe Ql (Unsp spec) Negative Negative for Trichomonas vaginalis by amplification [facility] UA DIP, URINE (POC)on 2022 BILIRUBIN UA (POCT) Small Abnormal Negative [facility] CLARITY UA (POCT) Cloudy [facility] COLOR UA (POCT) Dark yellow [facility] GLUCOSE UA (POCT) Negative Negative mg/dL [facility] HEMOGLOBIN/BLOOD UA (POCT) Negative Negative [facility] KETONE UA (POCT) Trace Negative mg/dL [facility] LEUKOCYTES UA (POCT) Trace Abnormal Negative [facility] NITRITE UA (POCT) Negative Negative [facility] PH UA (POCT) 6.0 4.5 - 8.0 [facility] Protein Ql (U) 30 mg/dL Abnormal Negative mg/dL [facility] SPECIFIC GRAVITY UA (POCT) 1.025 1.005 - 1.030 [facility] UROBILINOGEN UA (POCT) 1.0 E.U./dL Normal E.U./ dL [facility] Absolute lymphocyte countOrd ered By: Dr. Sesay on 10-15-2022 Lymphocytes Auto (Unsp spec) [#/Vol] 2.03 10*3/uL 0.83-4.51 [facility] Basophil percentageOrdered B y: Dr. Sesay on 10-15-2022 Basophils/100 WBC (Bld) 0.4 % 0-1 [facility] Chloride [Moles/Vol] 110 mmol/L 98-107 [facility] Eosinophils/100 WBC (Bld) 2.5 % 0-5 [facility] Glucose [Mass/Vol] 70 mg/dL 74-106 [facility] Neutrophils (Bld) [#/Vol] 5.5 10*3/uL 2.0-7.7 [facility] Neutrophils/100 WBC (Bld) 64.6 % 47-70 [facility] Potassium [Moles/Vol] 3.6 mmol/L 3.5-5.1 [facility] Sodium [Moles/Vol] 138 mmol/L 136-145 [facility] WBC (Bld) [#/Vol] 8.5 10*3/uL 4.4-11.0 [facility] Blood erythrocytes count (nu mber/volume)Ordered By: Dr. Sesay on 10-15-2022 RBC (Bld) [#/Vol] 3.78 10*6/uL 4.2-5.4 [facility] Blood hemoglobin measurement (mass/volume)Ordered By: Dr. Sesay on 10-15-2022 Hemoglobin (Bld) [Mass/Vol] 11.1 g/dL 12.0-15.0 [facility] Blood lymphocytes/100 leukoc ytesOrdered By: Dr. Sesay on 10-15-2022 Lymphocytes/100 WBC (Bld) 23.8 % 19-41 [facility] Blood monocytes/100 leukocyt esOrdered By: Dr. Sesay on 10-15-2022 Monocytes/100 WBC (Bld) 8.5 % 0-10 [facility] Blood platelet mean volumeOr dered By: Dr. Sesay on 10-15-2022 Platelet mean volume (Bld) [Entitic vol] 11.7 fL 6.2-12.0 [facility] Determination of erythrocyte mean corpuscular volume (MCV)Ordered By: Dr. Sesay on 10-15-2022 MCV (RBC) [Entitic vol] 89.2 fL 81-99 [facility] Hematocrit Auto (Bld) [Volum e fraction]Ordered By: Dr. Sesay on 10-15-2022 Hematocrit (Bld) [Volume fraction] 33.7 % 37-47 [facility] Laboratory - Chemistry and C hemistry - challengeOrdered By: Dr. Sesay on 10-15-2022 CO2 [Moles/Vol] 19.0 mmol/L 21.0-32.0 [facility] Urea nitrogen/Creatinine [Mass ratio] 9.1 mg/mg 10-20 [facility] Laboratory - Hematology and Cell countsOrdered By: Dr. Sesay on 10-15-2022 Erythrocyte distribution width (RBC) [Entitic vol] 40.7 fL 35.1-43.9 [facility] Erythrocyte distribution width (RBC) [Ratio] 12.3 % 11.6-14.6 [facility] Immature granulocytes/100 WBC (Bld) 0.200 % 0.0-0.9 [facility] Comment on above: IG% - Immature Granu locytes (promyelocytes, myelocytes and metamyelocytes) > 1% indicates that a LEFT SHIFT is Present. MCH (RBC) [Entitic mass] 29.4 pg 27.0-32.0 [facility] Nucleated RBC/100 WBC (Bld) [Ratio] 0 % 0-5 [facility] MCHC Auto (RBC) [Mass/Vol]Or dered By: Dr. Sesay on 10-15-2022 MCHC (RBC) [Mass/Vol] 32.9 g/dL 32-36 [facility] No Panel InformationOrdered By: Dr. Sesay on 10-15-2022 Estimated Creatinine Clearance Calc 114.48 ml/min [facility] Estimated GFR (MDRD) Amer 143 mL/min >60 [facility] Comment on above: GFR Calc Estimated GFR (MDRD) Non-Af Amer 118 mL/min >60 [facility] Comment on above: Non- GFR Calc Platelets bldOrdered By: Dr. Sesay on 10-15-2022 Platelets (Bld) [#/Vol] 170 10*3/uL 150-450 [facility] Serum or plasma calcium honey urement (mass/volume)Ordered By: Dr. Sesay on 10-15-2022 Calcium [Mass/Vol] 8.7 mg/dL 8.5-10.1 [facility] Serum or plasma creatinine m easurement (mass/volume)Ordered By: Dr. Sesay on 10-15-2022 Creatinine [Mass/Vol] 0.66 mg/dL 0.55-1.02 [facility] Comment on above: The validity of the calculated GFR & GFRAA in patients over 70 years has not been determined. Clinical correlation is essential. Serum or plasma urea nitroge n measurement (mass/volume)Ordered By: Dr. Sesay on 10-15-2022 Urea nitrogen [Mass/Vol] 6 mg/dL 7-18 [facility] Thin prep Papanicolaou smear with manual screeningOrdered By: Dr. Sesay on 10-15-2022 Thin prep Papanicolaou smear with manual screening 9 5-15 [facility] Erythrocyte sedimentation ra teOrdered By: Dr. Sesay on 10-13-2022 ESR (Bld) [Velocity] 7 mm/h 0-30 [facility] Absolute lymphocyte countOrd ered By: Dr. Lux on 10-11-2022 Lymphocytes Auto (Unsp spec) [#/Vol] 2.77 10*3/uL 0.83-4.51 [facility] Basophil percentageOrdered B y: Dr. Lux on 10-11-2022 Basophils/100 WBC (Bld) 0.6 % 0-1 [facility] Chloride [Moles/Vol] 107 mmol/L 98-107 [facility] Eosinophils/100 WBC (Bld) 5.7 % 0-5 [facility] Glucose [Mass/Vol] 96 mg/dL 74-106 [facility] Neutrophils (Bld) [#/Vol] 7.4 10*3/uL 2.0-7.7 [facility] Neutrophils/100 WBC (Bld) 63.2 % 47-70 [facility] Potassium [Moles/Vol] 3.8 mmol/L 3.5-5.1 [facility] Sodium [Moles/Vol] 138 mmol/L 136-145 [facility] WBC (Bld) [#/Vol] 11.6 10*3/uL 4.4-11.0 [facility] Beta hCG serum qualOrdered B y: Dr. Lux on 10-11-2022 Beta HCG ( test) Ql Negative [facility] Blood erythrocytes count (nu mber/volume)Ordered By: Dr. Lux on 10-11-2022 RBC (Bld) [#/Vol] 4.57 10*6/uL 4.2-5.4 [facility] Blood hemoglobin measurement (mass/volume)Ordered By: Dr. Lux on 10-11-2022 Hemoglobin (Bld) [Mass/Vol] 13.3 g/dL 12.0-15.0 [facility] Blood lymphocytes/100 leukoc ytesOrdered By: Dr. Lux on 10-11-2022 Lymphocytes/100 WBC (Bld) 23.8 % 19-41 [facility] Blood monocytes/100 leukocyt esOrdered By: Dr. Lux on 10-11-2022 Monocytes/100 WBC (Bld) 6.4 % 0-10 [facility] Blood platelet mean volumeOr dered By: Dr. Lux on 10-11-2022 Platelet mean volume (Bld) [Entitic vol] 12.0 fL 6.2-12.0 [facility] Determination of erythrocyte mean corpuscular volume (MCV)Ordered By: Dr. Lux on 10-11-2022 MCV (RBC) [Entitic vol] 88.6 fL 81-99 [facility] Hematocrit Auto (Bld) [Volum e fraction]Ordered By: Dr. Lux on 10-11-2022 Hematocrit (Bld) [Volume fraction] 40.5 % 37-47 [facility] Laboratory - Chemistry and C hemistry - challengeOrdered By: Dr. Lux on 10-11-2022 CO2 [Moles/Vol] 23.0 mmol/L 21.0-32.0 [facility] Urea nitrogen/Creatinine [Mass ratio] 10.9 mg/mg 10-20 [facility] Laboratory - Hematology and Cell countsOrdered By: Dr. Lux on 10-11-2022 Erythrocyte distribution width (RBC) [Entitic vol] 41.2 fL 35.1-43.9 [facility] Erythrocyte distribution width (RBC) [Ratio] 12.7 % 11.6-14.6 [facility] Immature granulocytes/100 WBC (Bld) 0.300 % 0.0-0.9 [facility] Comment on above: IG% - Immature Granu locytes (promyelocytes, myelocytes and metamyelocytes) > 1% indicates that a LEFT SHIFT is Present. MCH (RBC) [Entitic mass] 29.1 pg 27.0-32.0 [facility] Nucleated RBC/100 WBC (Bld) [Ratio] 0 % 0-5 [facility] MCHC Auto (RBC) [Mass/Vol]Or dered By: Dr. Lux on 10-11-2022 MCHC (RBC) [Mass/Vol] 32.8 g/dL 32-36 [facility] No Panel InformationOrdered By: Dr. Lux on 10-11-2022 Estimated Creatinine Clearance Calc 74.81 ml/min [facility] Estimated GFR (MDRD) Amer 87 mL/min >60 [facility] Comment on above: GFR Calc Estimated GFR (MDRD) Non-Af Amer 72 mL/min >60 [facility] Comment on above: Non- GFR Calc Platelets bldOrdered By: Dr. Lux on 10-11-2022 Platelets (Bld) [#/Vol] 185 10*3/uL 150-450 [facility] Serum or plasma calcium honey urement (mass/volume)Ordered By: Dr. Lux on 10-11-2022 Calcium [Mass/Vol] 9.1 mg/dL 8.5-10.1 [facility] Serum or plasma creatinine m easurement (mass/volume)Ordered By: Dr. Lux on 10-11-2022 Creatinine [Mass/Vol] 1.01 mg/dL 0.55-1.02 [facility] Comment on above: The validity of the calculated GFR & GFRAA in patients over 70 years has not been determined. Clinical correlation is essential. Serum or plasma urea nitroge n measurement (mass/volume)Ordered By: Dr. Lux on 10-11-2022 Urea nitrogen [Mass/Vol] 11 mg/dL -18 [facility] Thin prep Papanicolaou smear with manual screeningOrdered By: Dr. Lux on 10-11-2022 Thin prep Papanicolaou smear with manual screening 8 - [facility] UA DIP, URINE (POC)on 2021 BILIRUBIN UA (POCT) Negative Negative [facility] CLARITY UA (POCT) Clear [facility] COLOR UA (POCT) Yellow [facility] GLUCOSE UA (POCT) Negative Negative mg/dL [facility] HEMOGLOBIN/BLOOD UA (POCT) Negative Negative [facility] KETONE UA (POCT) Negative Negative mg/dL [facility] LEUKOCYTES UA (POCT) Negative Negative [facility] NITRITE UA (POCT) Negative [facility] PH UA (POCT) 8.0 4.5 - 8.0 [facility] Protein Ql (U) Negative Negative mg/dL [facility] SPECIFIC GRAVITY UA (POCT) 1.020 1.005 - 1.030 [facility] UROBILINOGEN UA (POCT) 0.2 E.U./dL Normal E.U./ dL [facility] HCG QUAL UR B/Oon 01-01-2022 status Negative neg - pos [facility] Quality Check Yes [facility] Absolute lymphocyte counton 11-18-2021 Lymphocytes Auto (Unsp spec) [#/Vol] 2.56 10*3/uL 0.83-4.51 [facility] Work Phone: [phone] Basophil percentageon 2021 Basophils/100 WBC (Bld) 0.4 % 0-1 [facility] Work Phone: [phone] Bilirubin [Mass/Vol] 0.40 mg/dL 0.20-1.00 [facility] Work Phone: [phone] Comment on above: For patients on eltr ombopag therapy, use of Dimension [place] TBIL is not recommended. Chloride [Moles/Vol] 108 mmol/L 98-107 [facility] Work Phone: Eosinophils/100 WBC (Bld) 1.3 % 0-5 [facility] Work Phone: [phone] Glucose [Mass/Vol] 78 mg/dL 74-106 [facility] Work Phone: Neutrophils (Bld) [#/Vol] 10.1 10*3/uL 2.0-7.7 [facility] Work Phone: Neutrophils/100 WBC (Bld) 73.5 % 47-70 [facility] Work Phone: Potassium [Moles/Vol] 3.9 mmol/L 3.5-5.1 [facility] Work Phone: Protein [Mass/Vol] 6.3 g/dL 6.4-8.2 [facility]: Sodium [Moles/Vol] 137 mmol/L 136-145 [facility] Work Phone: WBC (Bld) [#/Vol] 13.7 10*3/uL 4.4-11.0 [facility] Work Phone: Blood erythrocytes count (nu mber/volume)on 11-18-2021 RBC (Bld) [#/Vol] 3.93 10*6/uL 4.2-5.4 [facility] Work Phone: Blood hemoglobin measurement (mass/volume)on 11-18-2021 Hemoglobin (Bld) [Mass/Vol] 11.6 g/dL 12.0-15.0 [facility] Work Phone: Blood lymphocytes/100 leukoc yteson 11-18-2021 Lymphocytes/100 WBC (Bld) 18.6 % 19-41 [facility] Work Phone: Blood monocytes/100 leukocyt eson 11-18-2021 Monocytes/100 WBC (Bld) 4.8 % 0-10 [facility] Work Phone: Blood platelet mean volumeon 11-18-2021 Platelet mean volume (Bld) [Entitic vol] 11.4 fL 6.2-12.0 [facility] Work Phone: Determination of erythrocyte mean corpuscular volume (MCV)on 11-18-2021 MCV (RBC) [Entitic vol] 88.5 fL 81-99 [facility] Work Phone: Hematocrit Auto (Bld) [Volum e fraction]on 11-18-2021 Hematocrit (Bld) [Volume fraction] 34.8 % 37-47 [facility] Work Phone: Laboratory - Chemistry and C hemistry - challengeon 11-18-2021 ALP [Catalytic activity/Vol] 141 U/L 45-117 [facility] Work Phone: [phone] ALT [Catalytic activity/Vol] 14 U/L 13-56 [facility] Work Phone: [phone] CO2 [Moles/Vol] 21.0 mmol/L 21.0-32.0 [facility] Work Phone: [phone] Globulin (S) [Mass/Vol] 3.5 g/dL 2.2-4.2 [facility] Work Phone: Urea nitrogen/Creatinine [Mass ratio] 15.5 mg/mg 10-20 [facility] Work Phone: Laboratory - Drug toxicology on 11-18-2021 Benzodiazepines Ql (U) Negative [facility] Work Phone: Cannabinoids Screen Ql (U) Positive [facility] Work Phone: Cocaine Ql (U) Negative [facility] Work Phone: Opiates Ql (U) Negative [facility] Work Phone: Laboratory - Hematology and Cell countson 11-18-2021 Erythrocyte distribution width (RBC) [Entitic vol] 41.3 fL 35.1-43.9 [facility] Work Phone: Erythrocyte distribution width (RBC) [Ratio] 12.6 % 11.6-14.6 [facility] Work Phone: [phone] Immature granulocytes/100 WBC (Bld) 1.400 % 0.0-0.9 [facility] Work Phone: Comment on above: IG% - Immature Granu locytes (promyelocytes, myelocytes and metamyelocytes) > 1% indicates that a LEFT SHIFT is Present. MCH (RBC) [Entitic mass] 29.5 pg 27.0-32.0 [facility] Work Phone: [phone] Nucleated RBC/100 WBC (Bld) [Ratio] 0 % 0-5 [facility] Work Phone: MCHC Auto (RBC) [Mass/Vol]on 11-18-2021 MCHC (RBC) [Mass/Vol] 33.3 g/dL 32-36 [facility] Work Phone: No Panel Informationon 11-18 Estimated Creatinine Clearance Calc 146.54 ml/min [facility] Work Phone: Estimated GFR (MDRD) Amer 190 mL/min >60 [facility] Work Phone: Comment on above: GFR Calc Estimated GFR (MDRD) Non-Af Amer 157 mL/min >60 [facility] Work Phone: Comment on above: Non- GFR Calc MDMA (Ecstasy) Screen Negative [facility] Work Phone: Urine Barbiturates Screen Negative [facility] Work Phone: Urine Drug Screen Comment [facility] Work Phone: Comment on above: CONFIRMATORY TESTING [...] USE TESTMNEMONIC: [facility] Urine Methadone Screen Negative [facility] Work Phone: Vaginal Amniotic Fluid Detection Negative Negative [facility] Work Phone: Comment on above: Amniotic fluid not p resent indicates No Rupture of FetalMembranes at time of specimen collection. Platelets bldon 11-18-2021 Platelets (Bld) [#/Vol] 165 10*3/uL 150-450 [facility] Work Phone: Serum or plasma albumin honey urement (mass/volume)on 11-18-2021 Albumin [Mass/Vol] 2.8 g/dL 3.2-5.0 [facility] Work Phone: Serum or plasma albumin/glob ulin mass ratioon 11-18-2021 Albumin/Globulin [Mass ratio] 0.8 {ratio} 0.9-2.4 [facility] Work Phone: Serum or plasma calcium honey urement (mass/volume)on 11-18-2021 Calcium [Mass/Vol] 8.7 mg/dL 8.5-10.1 [facility] Work Phone: Serum or plasma creatinine m easurement (mass/volume)on 11-18-2021 Creatinine [Mass/Vol] 0.52 mg/dL 0.55-1.02 [facility] Work Phone: Comment on above: The validity of the calculated GFR & GFRAA in patients over 70 years has not been determined. Clinical correlation is essential. Serum or plasma urea nitroge n measurement (mass/volume)on 11-18-2021 Urea nitrogen [Mass/Vol] 8 mg/dL 7-18 [facility] Work Phone: Thin prep Papanicolaou smear with manual screeningon 11-18-2021 Thin prep Papanicolaou smear with manual screening 16 U/L 15-37 [facility] Work Phone: Thin prep Papanicolaou smear with manual screening 8 5-15 [facility] Work Phone: Urine amphetamine measuremen t (moles/volume)on 11-18-2021 Amphetamine (U) [Moles/Vol] Negative [facility] Work Phone: Urine phencyclidine (PCP) de tectionon 11-18-2021 Phencyclidine Ql (U) Negative [facility] Work Phone: URINE OB DIP B/Oon 2 Glucose Ql (U) Negative Neg mg/dL [facility] Protein.monoclonal (U) [Mass/Vol] trace Neg mg/dL [facility] URINE OB DIP B/Oon 2 Glucose Ql (U) Negative Neg mg/dL [facility] Protein.monoclonal (U) [Mass/Vol] Negative Neg mg/dL [facility] UA DIP, URINE (POC)on 2021 BILIRUBIN UA (POCT) Negative Negative [facility] CLARITY UA (POCT) Clear [facility] COLOR UA (POCT) Yellow [facility] GLUCOSE UA (POCT) Negative Negative mg/dL [facility] HEMOGLOBIN/BLOOD UA (POCT) Negative Negative [facility] KETONE UA (POCT) Negative Negative mg/dL [facility] LEUKOCYTES UA (POCT) Small Abnormal Negative [facility] NITRITE UA (POCT) Negative Negative [facility] PH UA (POCT) 7.5 4.5 - 8.0 [facility] Protein Ql (U) Negative Negative mg/dL [facility] SPECIFIC GRAVITY UA (POCT) 1.020 1.005 - 1.030 [facility] UROBILINOGEN UA (POCT) 0.2 E.U./dL Normal E.U./ dL [facility] URINE OB DIP B/Oon 2 Glucose Ql (U) Negative Neg mg/dL [facility] Protein.monoclonal (U) [Mass/Vol] trace Neg mg/dL [facility] UA DIP, URINE (POC)on 2021 BILIRUBIN UA (POCT) Negative Negative [facility] CLARITY UA (POCT) Clear [facility] COLOR UA (POCT) Yellow [facility] GLUCOSE UA (POCT) Negative Negative mg/dL [facility] HEMOGLOBIN/BLOOD UA (POCT) Negative Negative [facility] KETONE UA (POCT) Negative Negative mg/dL [facility] LEUKOCYTES UA (POCT) Trace Abnormal Negative [facility] NITRITE UA (POCT) Negative Negative [facility] PH UA (POCT) 8.0 4.5 - 8.0 [facility] Protein Ql (U) Negative Negative mg/dL [facility] SPECIFIC GRAVITY UA (POCT) 1.020 1.005 - 1.030 [facility] UROBILINOGEN UA (POCT) 0.2 E.U./dL Normal E.U./ dL [facility] OBSTETRIC ULTRASOUND WHIon 0 10-12-2021 [facility] URINE OB DIP B/Oon 2 Glucose Ql (U) Negative Neg mg/dL [facility] Protein.monoclonal (U) [Mass/Vol] trace Neg mg/dL [facility] URINE OB DIP B/Oon 2 Glucose Ql (U) Negative Neg mg/dL [facility] Protein.monoclonal (U) [Mass/Vol] Negative Neg mg/dL [facility] Bilirubin Test strip Ql (U)o n 09-13-2021 Bilirubin Ql (U) Negative Negative [facility] Work Phone: [phone] Culture, urineon 09-13-2021 Bacteria identified Cx Nom (U) Positive [facility] Work Phone: [phone] fibronectinon 09-14-19 22 Fibronectin. (Vag fld) [Mass/Vol] Negative [facility] Work Phone: [phone] Ketones Test strip Ql (U)on 09-13-2021 Ketones Ql (U) 5 mg/dl Negative [facility] Work Phone: [phone] Nitrite Test strip Ql (U)on 09-13-2021 Nitrite Ql (U) Negative Negative [facility] Work Phone: [phone] Protein Test strip Ql (U)on 09-13-2021 Protein Ql (U) 30 mg/dl Negative [facility] Work Phone: [phone] Urine blood detectionon 04- RBC Ql (U) Negative Negative [facility] Work Phone: [phone] Urine clarityon 09-13-2021 Clarity (U) Clear Clear [facility] Work Phone: [phone] Urine color determinationon 09-13-2021 Color (U) Yellow Yellow [facility] Work Phone: [phone] Urine glucose detectionon Glucose Ql (U) Normal mg/dl Normal [facility] Work Phone: [phone] Urine leukocyte esterase det ection by dipstickon 09-13-2021 Leukocyte esterase Test strip Ql (U) 25 /ul Negative [facility] Work Phone: [phone] Urine pHon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 Expires: 08/13/2023 [facility] Work Phone: Comment on above: Expected: 05/14/2023, Expires: Start: 04-27-2023 CHLAMYDIA SCREENING (18-24) CHLAMYDIA SCREENING (18-24) [facility] Start: 04-27-2023 GC (GONORRHEA) SCREENING (18-24) GC (GONORRHEA) SCREENING (18-24) [facility] Start: 02-07-2023 Covid-19 Vaccine (2022- season) Covid-19 Vaccine ( season) [facility] Start: 02-07-2023 Influenza vaccination [facility] Start: 11-12-2022 CHLAMYDIA SCREENING (18-24) CHLAMYDIA SCREENING (18-24) [facility] Start: 11-12-2022 GC (GONORRHEA) SCREENING (18-24) GC (GONORRHEA) SCREENING (18-24) [facility] Start: 10-19-2022 CHLAMYDIA SCREENING (18-24) CHLAMYDIA SCREENING (18-24) [facility] Start: 10-19-2022 GC (GONORRHEA) SCREENING (18-24) GC (GONORRHEA) SCREENING (18-24) [facility] Start: 10-15-2022 Patient discharge [facility] Start: 10-14-2022 [facility] Start: 10-12-2022 [facility] Start: 10-12-2022 End: 10-12-2022 Following clinical pathway protocol [facility] Start: 10-12-2022 Ambulation without limitation [facility] Start: 10-12-2022 Measuring intake and output [facility] Start: 10-12-2022 Taking patient vital signs [facility] Start: 10-12-2022 Consultation [facility] Start: 10-12-2022 End: 10-12-2022 [facility] Start: 10-11-2022 Admission procedure [facility] Start: 07-02-2022 CHLAMYDIA SCREENING (18-24) CHLAMYDIA SCREENING (18-24) [facility] Start: 07-02-2022 GC (GONORRHEA) SCREENING (18) GC (GONORRHEA) SCREENING (1824) [facility] Start: 04-27-2022 End: 06-27-2022 BACTERIAL VAGINOSIS AMPLIFICATION BACTERIAL VAGINOSIS AMPLIFICATION Lab Routine Urinary frequency Expected: 04/27/2022, Expires: 06/27/2022 [facility] Work Phone: Comment on above: Expected: 04/27/2022, Expires: 3 Start: 02-07-2022 Influenza vaccination INFLUENZA (#1) [facility] Start: 10-19-2021 End: 12-19-2021 Microscopic observation [Identifier] in Vaginal fluid by Gram stain [facility] Work Phone: Comment on above: Expected: 10/19/2021, Expires: 2 Start: 10-19-2021 End: 12-19-2021 Trichomonas vaginalis Ag [Presence] in Genital specimen by Immunoassay [facility] Work Phone: Comment on above: Expected: 10/19/2021, Expires: 2 Start: 09-11-2021 Bacteria identified in Urine by Culture Urine Culture [facility] Work Phone: Start: 09-11-2021 Iv infusion hydration each additional hour HYDRATE IV INFUSION ADD-ON [facility] Work Phone: Start: 09-11-2021 Iv infusion hydration initial 31 min-1 hour HYDRATION IV INFUSION INIT [facility] Work Phone: Start: 2017 Anxiety Screening Anxiety Screening [facility] Start: 2015 Meningococcal B Vaccine: Consider Based On Risk (1 of 2 - Patient Seeks Protection) Meningococcal B Vaccine: Consider Based On Risk (1 of 2 - Patient Seeks Protection) [facility] Start: 2015 MENINGOCOCCAL B: Consider based on risk (1 of 2 - Patient Seeks Protection) MENINGOCOCCAL B: Consider based on risk (1 of 2 - Patient Seeks Protection) [facility] Start: 2013 PEDS TO ADULT TRANSITION ANNUAL ASSESSMENT PEDS TO ADULT TRANSITION ANNUAL ASSESSMENT [facility] Start: 2011 Adult depression screening assessment DEPRESSION SCREENING [facility] Start: 2011 PEDS TO ADULT TRANSITION INITIAL DISCUSSION PEDS TO ADULT TRANSITION INITIAL DISCUSSION [facility] Start: 2009 MENINGOCOCCAL B: Consider based on risk (1 of 2 - Risk Bexsero 2-dose series) MENINGOCOCCAL B: Consider based on risk (1 of 2 - Risk Bexsero 2-dose series) [facility] Start: 02-14-2004 COVID-19 VACCINE (#1) COVID-19 VACCINE (#1) [facility] Start: 02-14-2004 COVID-19 VACCINE (1) COVID-19 VACCINE (1) [facility] Start: 1999 COVID-19 VACCINE (#1) COVID-19 VACCINE (#1) [facility] Alanine aminotransfe rase [Enzymatic activity/volume] in Serum or Plasma [facility] Albumin [Mass/volume ] in Serum or Plasma [facility] Alkaline phosphatase [Enzymatic activity/volume] in Serum or Plasma [facility] Anion gap measurement [facility] Aspartate aminotransferase [Enzymatic activity/volume] in Serum or Plasma [facility] Bacteria identified in Urine by Culture URINE CULTURE Microbiology Routine Supervision of high risk in third trimester 34 weeks gestation of Pelvic pressure in 10/19/2021 10:58 AM EDT [facility] Work Phone: Bacteria identified in Urine by Culture URINE CULTURE Microbiology Routine Pelvic pressure in 10/30/2021 3:37 PM EDT [facility] Work Phone: Bacteria identified in Urine by Culture URINE CULTURE Microbiology Routine Urinary frequency Ordered: 04/27/2022 [facility] Work Phone: Comment on above: Ordered: 04/27/2022 Bacteria identified in Urine by Culture URINE CULTURE Microbiology Routine Vaginal discharge Foul smelling urine 01/15/2023 3:43 PM EDT [facility] Work Phone: Bacteria identified in Urine by Culture URINE CULTURE Microbiology Routine Urinary frequency Ordered: 10/04/2023 [facility] Work Phone: Comment on above: Ordered: 10/04/2023 Bacteria identified in Urine by Culture URINE CULTURE Microbiology Routine Urinary frequency Ordered: 11/14/2023 [facility] Work Phone: Comment on above: Ordered: 11/14/2023 Bacteria identified in Urine by Culture BACTERIAL CULTURE, URINE Microbiology Routine Burning with urination 01/03/2025 11:17 AM EDT [facility] Work Phone: BACTERIAL VAGINOSIS AMPLIFICATION BACTERIAL VAGINOSIS AMPLIFICATION Lab Routine Vaginal discharge Ordered: 02/05/2022 [facility] Work Phone: Comment on above: Ordered: 02/05/2022 BACTERIAL VAGINOSIS NAAT BACTERI AL VAGINOSIS NAAT Lab Routine Dysuria 05/14/2023 1:47 PM EST [facility] Work Phone: BACTERIAL VAGINOSIS NAAT BACTERI AL VAGINOSIS NAAT Lab Routine Urinary frequency Ordered: 10/04/2023 [facility] Comment on above: Ordered: 10/04/2023 Bilirubin, total measurement [facility] BUN/Creatinine ratio [facility] Calcium [Mass/volume ] in Serum or Plasma [facility] TRACEY / TRICHOMONA S AMPLIFICATION TRACEY / TRICHOMONAS AMPLIFICATION Microbiology Routine Vaginal discharge Ordered: 02/05/2022 [facility] Work Phone: Comment on above: Ordered: 02/05/2022 TRACEY / TRICHOMONA S AMPLIFICATION TRACEY / TRICHOMONAS AMPLIFICATION Microbiology Routine Urinary frequency Ordered: 04/27/2022 [facility] Work Phone: Comment on above: Ordered: 04/27/2022 TRACEY/TRICHOMONAS NAAT TRACEY /TRICHOMONAS NAAT Lab Routine Dysuria 05/14/2023 1:47 PM EST [facility] Work Phone: TRACEY/TRICHOMONAS NAAT TRACEY /TRICHOMONAS NAAT Lab Routine Urinary frequency Ordered: 10/04/2023 [facility] Comment on above: Ordered: 10/04/2023 TRACEY/TRICHOMONAS NAAT TRACEY /TRICHOMONAS NAAT Lab Routine Screening for STD (sexually transmitted disease) 05/19/2024 11:23 AM [facility] Carbon dioxide, tota l [Moles/volume] in Serum or Plasma [facility] Chlamydia trachomatis+Neisseria gonorrhoeae DNA [Presence] in Unspecified specimen by ANURADHA with probe detection GC/CHLAMYDIA DNA DET Lab Routine Supervision of high risk in third trimester 34 weeks gestation of Pelvic pressure in 10/19/2021 10:58 AM [facility] Work Phone: Chlamydia trachomatis+Neisseria gonorrhoeae DNA [Presence] in Unspecified specimen by ANURADHA with probe detection GC/CHLAMYDIA DNA DET Lab Routine Urinary frequency Ordered: 04/27/2022 [facility] Work Phone: Comment on above: Ordered: 04/27/2022 Chlamydia trachomatis+Neisseria gonorrhoeae DNA [Presence] in Unspecified specimen by ANURADHA with probe detection GONORRHEA/CHLAMYDIA NAAT Lab Routine Vaginal discharge 01/15/2023 3:43 PM T [facility] Work Phone: Chlamydia trachomatis+Neisseria gonorrhoeae DNA [Presence] in Unspecified specimen by ANURADHA with probe detection GONORRHEA/CHLAMYDIA NAAT Lab Routine Dysuria 05/14/2023 1:47 PM [facility] Work Phone: Chlamydia trachomatis+Neisseria gonorrhoeae DNA [Presence] in Unspecified specimen by ANURADHA with probe detection GONORRHEA/CHLAMYDIA NAAT Lab Routine Urinary frequency Ordered: 10/04/2023 [facility] Comment on above: Ordered: 10/04/2023 Chlamydia trachomatis+Neisseria gonorrhoeae DNA [Presence] in Unspecified specimen by ANURADHA with probe detection GONORRHEA/CHLAMYDIA NAAT Lab Routine Screening for STD (sexually transmitted disease) 05/19/2024 11:23 AM [facility] Chlamydia trachomatis+Neisseria gonorrhoeae DNA [Presence] in Unspecified specimen by ANURADHA with probe detection GONORRHEA/CHLAMYDIA NAAT Lab Routine Screen for STD (sexually transmitted disease) 12/22/2024 2:41 PM [facility] Chloride [Moles/volu me] in Serum or Plasma [facility] Choriogonadotropin.b eta subunit ( test) [Presence] in Serum or Plasma [facility] Creatinine [Moles/volume] in Serum or Plasma [facility] Erythrocyte mean corpuscular volume determination [facility] Glucose [Mass/volume ] in Serum or Plasma [facility] Hematocrit [Volume Fraction] of Blood [facility] Hemoglobin [Mass/vol ume] in Blood [facility] Leukocytes [#/volume ] in Blood [facility] Mean corpuscular hemoglobin concentration determination [facility] Mean corpuscular hemoglobin determination [facility] Measurement of renal function [facility] Neutrophil count [facility] Neutrophil percent differential count [facility] NEXPLANON INSERTION NEXPLANON IN SERTION Procedures Routine Insertion of implantable subdermal contraceptive Ordered: 01/01/2022 [facility] Work Phone: Comment on above: Ordered: 01/01/2022 NEXPLANON REMOVAL NEXPLANON HUGO MARYJANE Procedures Routine Nexplanon removal Ordered: 04/30/2024 [facility] Work Phone: Comment on above: Ordered: 04/30/2024 OBSTETRIC ULTRASOUND [facility]I OBSTETR IC ULTRASOUND [facility]I Anc Imaging Routine 33 weeks gestation of Uterine size-date discrepancy in third trimester History of macrosomia in infant in prior , currently in third trimester Ordered: 10/11/2021 [facility] Work Phone: Comment on above: Ordered: 10/11/2021 PAP TEST PAP TEST Lab Tali javier Encounter for gynecological examination (general) (routine) without abnormal findings Screening for cervical cancer 12/22/2024 2:41 PM EDT [facility] Work Phone: Patient Education [facility] Work Phone: Patient referral [facility] Work Phone: Platelets [#/volume] in Blood [facility] Potassium [Moles/vol ume] in Serum or Plasma [facility] Red blood cell count [facility] Red cell distributio n width determination [facility] ROUTINE, GR OUP B STREP PCR ROUTINE, GROUP B STREP PCR Microbiology Routine 36 weeks gestation of 10/30/2021 3:38 PM EDT [facility] Work Phone: Sodium [Moles/volume ] in Serum or Plasma [facility] Total protein measurement [facility] UA DIP, URINE (POC) UA DIP, URIN E (POC) Lab Routine Dysuria Ordered: 05/14/2023 [facility] Work Phone: Comment on above: Ordered: 05/14/2023 Urea nitrogen [Mass/volume] in Serum or Plasma [facility] Immunizations Immunization Date Immunization Notes Care Provider Rula matnilla 11-08-2024 tetanus toxoid, redu latisha diphtheria toxoid, and acellular pertussis vaccine, adsorbed Krishan Wing APRN.PROJECT DRILLING ENGINEER Work Phone: [facility] 04-21-2024 influenza virus vacc ine, unspecified formulation Janelle Ennis APRN.PROJECT DRILLING ENGINEER Work Phone: [facility] 11-19-2021 measles, mumps and rubella virus vaccine [facility] 09-12-2021 tetanus toxoid, redu latisha diphtheria toxoid, and acellular pertussis vaccine, adsorbed Karyna Roberts MD Work Phone: [facility] 04-23-2021 influenza, injectabl e, quadrivalent, contains preservative Karyna Roberts MD Work Phone: [facility] 04-23-2021 influenza, injectabl e, quadrivalent, preservative free [facility] 04-23-2021 influenza, seasonal, injectable [facility] 04-23-2021 influenza virus vacc ine, unspecified formulation Haider Pereyra MD Work Phone: [facility] 02-22-2020 influenza, injectabl e, quadrivalent, contains preservative Karyna Roberts MD Work Phone: [facility] 06-29-2018 influenza, injectabl e, quadrivalent, contains preservative Karyna Roberts MD Work Phone: [facility] 11-01-2015 meningococcal polysaccharide (groups A, C, Y and W-135) diphtheria toxoid conjugate vaccine (MCV4P) Karyna Roberts MD Work Phone: [facility] Work Phone: 04-07-2015 influenza, injectabl e, quadrivalent, preservative free Karyna Roberts MD Work Phone: [facility] Work Phone: 03-16-2014 influenza, injectabl e, quadrivalent, preservative free Karyna Roberts MD Work Phone: [facility] Work Phone: 03-05-2013 influenza virus vacc ine, unspecified formulation Karyna Roberts MD Work Phone: [facility] 01-16-2012 human papilloma viru s vaccine, quadrivalent Karyna Roberts MD Work Phone: [facility] 05-16-2011 hepatitis A vaccine, unspecified formulation Karyna Roberts MD Work Phone: [facility] Work Phone: 05-16-2011 human papilloma viru s vaccine, quadrivalent Karyna Roberts MD Work Phone: [facility] Work Phone: 05-16-2011 influenza virus vacc ine, unspecified formulation Karyna Roberts MD Work Phone: [facility] Work Phone: 12-11-2010 human papilloma viru s vaccine, quadrivalent Karyna Roberts MD Work Phone: [facility] Work Phone: 12-11-2010 Meningococcal, MCV4, unspecified conjugate formulation(groups A, C, Y and W-135) Karyna Roberts MD Work Phone: [facility] Work Phone: 12-11-2010 tetanus toxoid, redu latisha diphtheria toxoid, and acellular pertussis vaccine, adsorbed Karyna Roberts MD Work Phone: [facility] Work Phone: 04-17-2010 influenza virus vacc ine, unspecified formulation Karyna Roberts MD Work Phone: [facility] Work Phone: 03-30-2009 influenza virus vacc ine, unspecified formulation Karyna Roberts MD Work Phone: [facility] Work Phone: 02-17-2007 hepatitis A vaccine, unspecified formulation Karyna Roberts MD Work Phone: [facility] Work Phone: 02-17-2007 varicella virus vaccine Karyna Roberts MD Work Phone: [facility] Work Phone: 12-21-2003 diphtheria, tetanus toxoids and acellular pertussis vaccine Karyna Roberts MD Work Phone: [facility] Work Phone: 12-21-2003 measles, mumps and rubella virus vaccine Karyna Roberts MD Work Phone: [facility] Work Phone: 12-21-2003 poliovirus vaccine, inactivated Karyna Roberts MD Work Phone: [facility] Work Phone: 02-17-2001 diphtheria, tetanus toxoids and acellular pertussis vaccine Karyna Roberts MD Work Phone: [facility] Work Phone: 02-17-2001 haemophilus influenz ae type b vaccine, HbOC conjugate Karyan Roberts MD Work Phone: [facility] Work Phone: 02-17-2001 hepatitis B vaccine, pediatric or pediatric/adolescent dosage Karyna Roberts MD Work Phone: [facility] Work Phone: 02-17-2001 pneumococcal conjuga te vaccine, 7 valent Karyna Roberts MD Work Phone: [facility] Work Phone: 02-29-2000 hepatitis B vaccine, pediatric or pediatric/adolescent dosage Karyna Roberts MD Work Phone: [facility] Work Phone: 02-29-2000 measles, mumps and rubella virus vaccine Karyna Roberts MD Work Phone: [facility] Work Phone: 02-29-2000 pneumococcal conjuga te vaccine, 7 valent Karyna Roberts MD Work Phone: [facility] Work Phone: 02-29-2000 varicella virus vaccine Karyna Roberts MD Work Phone: [facility] Work Phone: 1999 diphtheria, tetanus toxoids and acellular pertussis vaccine Karyna Roberst MD Work Phone: [facility] Work Phone: 1999 haemophilus influenz ae type b vaccine, HbOC conjugate Karyna Roberts MD Work Phone: [facility] Work Phone: 1999 hepatitis B vaccine, pediatric or pediatric/adolescent dosage Karyna Roberts MD Work Phone: [facility] Work Phone: 1999 poliovirus vaccine, inactivated Karyna Roberts MD Work Phone: [facility] Work Phone: 1999 diphtheria, tetanus toxoids and acellular pertussis vaccine Karyna Roberts MD Work Phone: [facility] Work Phone: 1999 haemophilus influenz ae type b vaccine, HbOC conjugate Karyna Roberts MD Work Phone: [facility] Work Phone: 1999 poliovirus vaccine, inactivated Karyna Roberts MD Work Phone: [facility] Work Phone: 1999 diphtheria, tetanus toxoids and acellular pertussis vaccine Karyna Roberts MD Work Phone: [facility] Work Phone: 1999 haemophilus influenz ae type b vaccine, HbOC conjugate Karyna Roberts MD Work Phone: [facility] Work Phone: 1999 poliovirus vaccine, inactivated Karyna Roberts MD Work Phone: [facility] Work Phone: Payers Date Payer Category Payer Self-pay [id number] 2015 Medicaid [id number] 2015 Medicaid [id number] 2015 Medicaid [employer] [facility] [id number] 2015-Present [phone] [address] [place] [address] Medicaid [id number] 2015 Medicaid [id number] 1999 Unknown [id number] Unknown [id number] Unknown [id number] Unknown [id number] Unknown [id number] Social History Date Type Detail Facility Start: 04-07-2021 End: 10-15-2023 Tobacco smoking status NHIS Unknown if ever smoked [facility] Start: 09-27-2020 None [facility] Start: 09-27-2020 [facility] Start: 10-18-2020 [facility] [facility] Start: 2000 Sex Assigned At Female [facility] Start: 07-19-2020 End: 01-01-2025 Tobacco smoking status NHIS Smokes tobacco daily [facility] Work Phone: History of tobacco use Cigarette Smoker [facility] Work Phone: Start: 07-19-2020 End: 05-04-2024 Cigarettes smoked current (pack per day) - Reported 0.25 [facility] Start: 07-19-2020 End: 05-19-2024 Tobacco use and exposure Smokeless tobacco non-user [facility] Work Phone: Start: 09-12-2021 End: 12-28-2024 Alcohol intake Current non-drinker of alcohol (finding) [facility] Start: 07-03-2017 End: 02-05-2022 Tobacco Comment 7 cigarettes a day [facility] Start: 03-04-2021 [facility] Start: 2000 Sex Assigned At Not on file [facility] Start: 08-18-2021 End: 05-12-2022 Exposure to SARS-CoV-2 (event) Not sure [facility] Start: 10-19-2021 End: 05-19-2024 Tobacco smoking status NHIS Ex-smoker [facility] History of tobacco use Current smoker [facility] Work Phone: Start: 10-28-2022 End: 05-04-2024 Tobacco use panel [facility] National Score (1-100), lower number is lower risk 80 [facility] Start: 10-10-2022 Gender identity Identifies as female gender (finding) [facility] Start: 09-14-2024 Sex Female (finding) [facility] NEGATED: Highlighted row [facility] Medical Equipment Procedure Code Equipment Code Equipment Origin al Text Equipment Identifier AYDE Hare FDA Start: 10-13-2022 RELOAD, SR75 SELECTABLE FDA Start: 10-13-2022 RELOAD, SR75 SELECTABLE FDA Start: 10-13-2022 RELOAD, SR75 SELECTABLE FDA Start: 10-13-2022 RELOAD,REG 60MM XR60B FDA Start: 10-13-2022 [id number] FDA Start: 10-13-2022 KRISTYNRTUHLENA CARRILLO FDA Start: 10-13-2022 RELOAD, SR75 SELECTABLE FDA Start: 10-13-2022 RELOAD, SR75 SELECTABLE FDA Start: 10-13-2022 RELOAD, SR75 SELECTABLE FDA Start: 10-13-2022 RELOAD,REG 60MM XR60B FDA Start: 10-13-2022 [id number] FDA Start: 10-13-2022 KRISTYNRUTHLENA CARRILLO FDA Start: 10-13-2022 RELOAD, SR75 SELECTABLE FDA Start: 10-13-2022 RELOAD, SR75 SELECTABLE FDA Start: 10-13-2022 RELOAD, SR75 SELECTABLE FDA Start: 10-13-2022 RELOAD,REG 60MM XR60B FDA Start: 10-13-2022 [id number] FDA Start: 10-13-2022 AYDE SIMONS FDA Start: 10-13-2022 RELOAD, SR75 SELECTABLE FDA Start: 10-13-2022 RELOAD, SR75 SELECTABLE FDA Start: 10-13-2022 RELOAD, SR75 SELECTABLE FDA Start: 10-13-2022 RELOAD,REG 60MM XR60B FDA Start: 10-13-2022 [id number] FDA Start: 10-13-2022 AYDE SIMONS FDA Start: 10-13-2022 RELOAD, SR75 SELECTABLE FDA Start: 10-13-2022 RELOAD, SR75 SELECTABLE FDA Start: 10-13-2022 RELOAD, SR75 SELECTABLE FDA Start: 10-13-2022 RELOAD,REG 60MM XR60B FDA Start: 10-13-2022 [id number] FDA Start: 10-13-2022 KRISTYNRUTHLENA CARRILLO FDA Start: 10-13-2022 RELOAD, SR75 SELECTABLE FDA Start: 10-13-2022 RELOAD, SR75 SELECTABLE FDA Start: 10-13-2022 RELOAD, SR75 SELECTABLE FDA Start: 10-13-2022 RELOAD,REG 60MM XR60B FDA Start: 10-13-2022 [id number] FDA Start: 10-13-2022 Goals Date Patient Goal Desired Activity /State Functional Status Date Assessment Result Facility 10-15-2022 Functional status Ambulates [facility] Work Phone: 10-11-2014 Are you deaf, or do you have serious difficulty hearing Yes 10/11/2014 3:39 PM EDT Breonna Cherry RN Yes [facility] 10-11-2014 Are you blind, or do you have serious difficulty seeing, even when wearing glasses No 10/11/2014 3:39 PM EDT Breonna Cherry RN No [facility] 10-11-2014 Do you have serious difficulty walking or climbing stairs No 10/11/2014 3:39 PM EDT Breonna Cherry RN No [facility] 10-11-2014 Do you have difficul ty dressing or bathing No 10/11/2014 3:39 PM EDT Breonna Cherry RN No [facility] 10-11-2014 Because of a physica l, mental, or emotional condition, do you have difficulty doing errands alone such as visiting a physician's office or shopping No 10/11/2014 3:39 PM EDT Breonna Cherry RN No [facility] Mental Status Date Assessment Result Facility 10-14-2022 Cognitive function Voice/Name [facility] Work Phone: 10-11-2014 Because of a physica l, mental, or emotional condition, do you have serious difficulty concentrating, remembering, or making decisions Yes 10/11/2014 3:39 PM EDT Breonna Cherry RN Yes [facility] Clinical Notes 08-14-2017 to 01-12-2025 Patient Colette Koroma MD - 01/03/2025 10:15 AM EDTTelephone Encounter - Randy Moncada RN - 12/23/2024 9:32 AM EDTTelephone Encounter - Randy Moncada RN - 12/23/2024 9:32 AM EDT Note Date & Type Note Facility 01-12-2025 Note HNO ID: [id number] Author: VALE COE PA Service: ? Author Type: Physician Freelance Court Reporter Type: Progress Notes Filed: 01/12/2025 15:51 Note Text: [facility]ARE JOSETTECRISTIAN Osman is a 24 year old female. Patient presents with: Vomiting: Once 2 days ago and once today, requesting hcg, 2+ at home HPI Potential : - Two positive home tests, with faint lines. - Last menstrual period at the end of October. - control at the end of November; Nexplanon still in place but not removed. - No vaginal bleeding or discharge. - Has two children. Emesis: - Vomited blackish-brown substance the day before yesterday; initially thought it was blood. - Vomited black specks today. - Denies consuming black-colored foods or taking Pepto-Bismol. - Denies abdominal pain, fever, diarrhea, or hematochezia. - One episode of emesis today. - No pain in the upper or lower abdomen. Review of Systems Constitutional: (-) fever Gastrointestinal: (+) vomiting, (+) abdominal pain, (-) diarrhea, (-) hematochezia Genitourinary: (+) amenorrhea, (-) vaginal bleeding, (-) vaginal discharge Musculoskeletal: (-) back pain Objective BP 124/87 Pulse 115 Temp 36.7 ?C (98 ?F) Resp 18 Wt 58.8 kg (129 lb 10.1 oz) LMP 10/28/2024 (Within Days) SpO2 97% BMI 22.60 kg/m? Physical Exam Vitals and nursing note reviewed. Constitutional: General: She is not in acute distress. Appearance: Normal appearance. She is not toxic-appearing. HENT: Mouth/Throat: Mouth: Mucous membranes are moist. Cardiovascular: Rate and Rhythm: Normal rate and regular rhythm. Pulmonary: Effort: Pulmonary effort is normal. Breath sounds: Normal breath sounds. Abdominal: General: Abdomen is flat. Bowel sounds are normal. Palpations: Abdomen is soft. Tenderness: There is no abdominal tenderness. There is no guarding or rebound. Skin: General: Skin is warm and dry. Neurological: Mental Status: She is alert. General: No acute distress. Abd: No tenderness to palpation. { 1. Nausea and vomiting, unspecified vomiting type (R11.2) 2. Missed menses (N92.6) - patient did bring in photos for review of emesis. Appears as light brown food particles. No coffee ground or black emesis noted on photo. - No evidence of coffee ground emesis or hematemesis on review of emesis photos. - hCG test negative in office - Instructed patient to repeat home test in a few days and contact TALENT ACQUISITION COORDINATOR if positive. Recording using [employer] software for draft documentation of the visit was discussed with the patient/authorized primary care sales representative; all questions welcomed and answered. Patient/authorized primary care sales representative agreed to proceed Differential Diagnoses - Vomiting is more likely for the following reason(s): suggested by HANDP - Acute surgical abdomen is less likely for the following reason(s): No abdominal tenderness, HANDP not suggestive - is less likely for the following reason(s): laboratory studies not suggestive Disposition The patient was discharged. Procedures [facility] 01-03-2025 Instructions June Rojas MA - 01/03/2025 10:17 AM EDT YOUR RECOVERY It may take a few weeks for your cervix to heal. While your cervix heals, you may have: - Vaginal bleeding (less than a normal menstrual period) - Mild cramping -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 Eos % (Auto) 5.7 [...] % (Auto) 52.5, Lymph % (Auto) 34.0, [place] % (Auto) 6.7, Eos % (Auto) 6.0 [...] 22:49 EDT Reading Location ID and State: [address] [place] [address] , Service support , Physical Exam Const oriented x3 Resp [...] surgical resection. Roberto Carlos Sesay MD Pager: [facility] [address] [place] [address], [address] [place] [address] Office: 10/12/22 1682 <Electronically signed by Roberto Carlos Sesay MD> Cosigner Signature (if applicable): CC: ~ Signed [facility] Work Phone: 1(457) 587-989805-06-2023 History and physical note Author Dr. Sesay [facility] October 11, 2022 11:40pm Note Date/Time October 11, 2022 11:40p m [facility] Medical Records Department [address] [place] [address] H&P Exam - Surgical 10/11/22 2336 MR#: [id number] Acct: [id number] Name: OTTONIEL OSMAN LIA Rep #:[id number] : 2000 22 From: Roberto Carlos martinez [...] and started another cycle 2 days ago. [facility] Medical History ADHD Asthma Chlamydia infection affecting [...] RDW Std Deviation 41.2, RDW Coeff of Melhcor 12.7, Plt Count 185, MPV 12.0, Immature Gran % (Auto) 0.300, Neut % (Auto) 63.2, Lymph % (Auto) 23.8, [place] % (Auto) 6.4, Eos % (Auto) 5.7 [...] Haider Hernandez MD at 22:49 EDT , Assessment & Plan Assessment/Plan (1) Diverticulitis: [...] 6 weeks. Roberto Carlos Sesay MD Pager: [facility] [address] [place] [address], [address] [place] [address] Office: 10/11/22 4218 <Electronically signed by Roberto Carlos Sesay MD> Cosigner Signature (if applicable): CC: Dr. Roberto Carlos Sesay MD; No Primary Care Physician~ Signed [facility] Work Phone: [phone]) 872-934905-05-2023 Miscellaneous Notes* Telephone Encounter - Bernadine San RN - 10/11/2022 8:34 PM EDT Reason for Call: Severe right sided abdominal pain Outcome: Go to ED now. Patient acknowledges understanding and states she will go to ED now. Reason for Disposition [1] SEVERE pain (e.g., excruciating) AND [2] present > 1 hour Protocols used: Abdominal Pain - [id number]-MQ Patient states she started period yesterday, started having abdominal pain. The pain has increased and is excruciating on her right side. [facility] History of Present illness Narrative* Almaz Ha APRN.BATOOL - 05/12/2022 2:48 PM EST Subjective The history is provided by the patient. No language instructor was used. HPI Ottoniel Osman is a [...] trimester 05/21/2021 11/14/21- ALLEN negative. Viky Stubbs, RADIOLOGIC ELECTRONIC SPECIALIST.CNM Chlamydia positive again 10/19/21. SW Depression 10/11/2014 Hospitalized 10/03/2014. Dysmenorrhea 05/31/2013 Family history of hypertrophic cardiomyopathy 11/01/2015 Fatigue 05/31/2013 Menarche 11/2011 Age 11 Nexplanon insertion 02/2018 Left arm PTSD (post-traumatic stress disorder) Short stature resolved Unspecified asthma(493.90) I have confirmed and edited as necessary, the [facility] Review of Systems Constitutional: Negative [...] evaluation. Almaz Ha APRN.CNP documented in this encounterA[facility]12-[facility]22 Instructions* Patient Instructions* Almaz Ha APRN.CNP - [...] breath, inability to swallow. documented in this encounterAdena [facility]11-19-2022 History of Present illness Narrative* Krishan Wing APRN.BATOOL - 04/27/2022 1:36 PM EST CC: Patient [...] (Patient not taking: Reported on 12/17/2021 ) FFN793-twac-Emetulm--jti ( PLUS DHA) 18 mg iron-800 mcg-290 [...] plan. Krishan Wing APRN.BATOOL documented in this encounterAden[facility]08-31-2022 Miscellaneous Notes* Telephone Encounter - Abbey Castillo RN - 02/06/2022 10:58 AM EDT Patient was seen at urgent care yesterday. Was put on Doxycycline yesterday for axillary infection.Tested negative for BV, trich and yeast yesterday. I called patent and she states discharge is whitish and smells like ammonia. No itching. Please advise documented in this encounterAdena [facility]08-30-2022 Instructions* Patient Instructions* Meri Mehta APRN.PROJECT DRILLING ENGINEER - 02/05/2022 5:04 PM EDT VAGINAL DISCHARGE [...] or shots ordered by your doctor Chlamydia (Dgy-ouu-sa-ah) Yes Often no symptoms Pills ordered by [...] swelling, or soreness around the vagina. Copyright 2417-8195 [facility]. All rights reserved. This information is provided by the [facility] and is not intended to replace the medical advice of your doctor or health care provider. Please consult your health care provider for advice about a specific medical condition. For additional written health information, please contact the [facility] at the [facility] or toll-free extension [phone]. This document was last reviewed on: 2004 index#4084 ABSCESS (BOIL): You have a skin abscess, [...] drainage after 3-4 days. documented in this encounterAdena [facility]ike [facility] Center08-30-2022 History of Present illness Narrative* Meri Mehta APRN.BATOOL - 02/05/2022 4:54 PM EDT This note was created using American Giantriter. Subjective Ottoniel Osman is a 21 year [...] is provided by the patient. No language instructor was used. Abscess This is a new [...] (Patient not taking: Reported on 12/17/2021 ) UKL288-oata-Eowhhjj-difap9-jpi ( PLUS DHA) 18 mg iron-800 mcg-290 [...] 78 kg (172 lb) LMP (LMP Unknown) SmV521% BMI 29.99 kg/m Physical Exam Vitals and [...] if need be return 02/07/22 Meri Mehta APRN.PROJECT DRILLING ENGINEER documented in this encounterCleveland [id number] History of Present illness Narrative* Janelle Ennis APRN.CNP - 01/01/2022 3:22 PM EDT Ottoniel is a 21 year old patient who presents for Nexplanon insertion. Pt is . VITALS: BP 102/64 Wt 164 lb (74.4kg) test: negative Nexplanon lot #: [id number] Exp date: 12/08/2023 UNIVERSAL PROTOCOL / SAFETY [...] Care Visit completed when applicable. Janelle Ennis APRN.BATOOL TECHNIQUE: Patient placed in supine position [...] backup contraception for 7 days. Janelle Ennis APRN.BATOOL documented in this encounterAdena [facility]07-26-2022 Instructions* Patient Instructions* Tamiko Ortiz LPN - [...] days to prevent . documented in this encounterAdena [facility]07-25-2022 History of Present illness Narrative* Karli Jacinto MD - 12/31/2021 3:03 PM EDT Chief Informatics Officer offered: Patient declines. VISIT Ottoniel Osman is a 21 year old year old here for visit. Delivery Summary: ROS/ Recovery: Feeding: Bottle feeding problems: None Menses since delivery: n/a Menstrual pattern prior to : Regular periods [place] since delivery: Not resumed Depression: denies symptoms [...] first trimester 05/21/2021 11/14/21- ALLEN negative. Viky Sutbbs APRN.CNM Chlamydia positive again 10/19/21. SW Depression [...] external genitalia normal, normal Bartholin's glands, urethra, Mart's glands, no vulvar lesions, no cervical lesions, [...] PRN Karli Jacinto MD documented in this encounterAdena [facility]07-11-2022 History of Present illness Narrative* Viky Stubbs APRN.JUSTYNM - 12/17/2021 3:10 PM EDT VISIT/ Problem [...] external genitalia normal, normal Bartholin's glands, urethra, Mart's glands, no cervical lesions, good vaginal support, physiologic discharge present, normal appearing perineal body and perianal region, vaginal laceration well approximated, no erythema and tissue healing appropriately ASSESSMENT AND PLAN: 21 year old status post with normal course. Contraception plan: Nexplanon Follow up: already scheduled 6 week visit Viky Stubbs APRN.CNM documented in this encounterAdena [facility]ike [facility] Center07-11-2022 Miscellaneous Notes* Telephone Encounter - Tomasa Michaels [...] spot? Tomasa Michaels RN documented in this encounterAdena Pike [facility] Center06-13-2022 History of Present illness Narrative* Rajwinder Marroquin RN - 11/19/2021 8:28 AM EDT Patient delivered via by Dr. Jacinto on 11[facility]18/[facility] at [facility]. See OB history. Rajwinder Marroquin RN documented in this encounterAdena Pike [facility] Center06-10-2022 Miscellaneous Notes* Quick Notes - Meri Chapman [...] percentile Meri Chapman APRN.CNM documented in this encounterAdena Pike [facility] Center06-10-2022 Instructions* Patient Instructions* Oralia Peraza MA - 11/16/2021 3:02 PM EDT SEQUENTIAL SCREENINGS The [facility] offers sequential screenings for women who are [...] testing. It will require an appointment withour dermatology technician. This is not an ultrasound performed [...] the above symptoms, contact our office at [phone] and ask to speak with anurse. After hours, you can call doctors registry at [phone] OR call [facility] at [phone] ask to have the doctor computational mathematician paged. If you consider this an emergency, dial 4-6-5 or go to your nearest emergency department. NEED HELP? Are you dealing with a violent or abusive relationship? Are you a victim of rape or sexual assult? Call [facility] ([place]) 24 hour Crisis Hotline: 570.441.4266 or 111-221-4403. MANUAL Your Guide to a Healthy manual is now on-line. Visit [email or web address] to download your free copy documented in this encounterAdena [facility]ike [facility] Center06-03-2022 Miscellaneous Notes* Quick Notes - Meri Chapman APRN.MARGARITA - 11/09/2021 2:35 PM EDT RAUL-S: Ottoniel [...] time. Meri Chapman APRN.CNM documented in this encounterAdena Pike [facility] Center06-03-2022 Instructions* Patient Instructions* Oralia PerazaLISA - 11/09/2021 2:20 PM EDT SEQUENTIAL SCREENINGS The [facility] offers sequential screenings for women who are [...] testing. It will require an appointment withour dermatology technician. This is not an ultrasound performed [...] the above symptoms, contact our office at [phone] and ask to speak with anurse. After hours, you can call doctors registry at [phone] OR call [facility] at [phone] ask to have the doctor computational mathematician paged. If you consider this an emergency, dial 9--1 or go to your nearest emergency department. NEED HELP? Are you dealing with a violent or abusive relationship? Are you a victim of rape or sexual assult? Call [facility] ([place]) 24 hour Crisis Hotline: 994.850.1802 or 237-197-4676. MANUAL Your Guide to a Healthy manual is now on-line. Visit [email or web address] to download your free copy documented in this encounterAdena [facility] Center05-24-2022 Miscellaneous Notes* Quick Notes - Zeina Wing [...] in Zeina Wing MD documented in this encounterAdena Pike Medical Center05-24-2022 Instructions* Patient Instructions* Margaret Francis Ma - 10/30/2021 3:06 PM EDT SEQUENTIAL SCREENINGS The [facility] offers sequential screenings for women who are [...] testing. It will require an appointment withour dermatology technician. This is not an ultrasound performed [...] the above symptoms, contact our office at [phone] and ask to speak with anurse. After hours, you can call doctors registry at [phone] OR call [facility] at [phone] ask to have the doctor computational mathematician paged. If you consider this an emergency, dial 9--4 or go to your nearest emergency department. NEED HELP? Are you dealing with a violent or abusive relationship? Are you a victim of rape or sexual assult? Call [facility] ([place]) 24 hour Crisis Hotline: 268.634.5013 or 732-106-7167. MANUAL Your Guide to a Healthy manual is now on-line. Visit [email or web address] to download your free copy documented in this encounterAdena Pike [facility] Center05-19-2022 Miscellaneous Notes* Quick Notes - Zeina Wing [...] reviewed. Zeina Wing MD documented in this encounterAdena Pike [facility] Center05-19-2022 Instructions* Patient Instructions* Margaret Francis Ma - 10/25/2021 2:17 PM EDT SEQUENTIAL SCREENINGS The [facility] offers sequential screenings for women who are [...] testing. It will require an appointment withour dermatology technician. This is not an ultrasound performed [...] the above symptoms, contact our office at [phone] and ask to speak with anurse. After hours, you can call doctors registry at [phone] OR call [facility] at [phone] ask to have the doctor computational mathematician paged. If you consider this an emergency, dial 9-1-1 or go to your nearest emergency department. NEED HELP? Are you dealing with a violent or abusive relationship? Are you a victim of rape or sexual assult? Call [facility] ([place]) 24 hour Crisis Hotline: 674.284.8454 or 774-389-8839. MANUAL Your Guide to a Healthy manual is now on-line. Visit [email or web address] to download your free copy documented in this encounterAdena [facility]ike [facility] Center05-16-2022 Miscellaneous Notes* Telephone Encounter - Colette Rubio [...] only for 1 dose. documented in this encounterAdena Pike Medical Center05-16-2022 Miscellaneous Notes* Telephone Encounter - Karyna Roberts MD - 10/22/2021 8:18 AM EDT See result noted Azithromycin sent in documented in this encounterAdena Pike Medical Center05-13-2022 Miscellaneous Notes* Quick Notes - Karyna Roberts [...] up Karyna Roberts DO documented in this encounterAdena Pike Medical Center05-13-2022 Instructions* Patient Instructions* Margaret Francis Ma - 10/19/2021 10:16 AM EDT SEQUENTIAL SCREENINGS The [facility] offers sequential screenings for women who are [...] testing. It will require an appointment withour dermatology technician. This is not an ultrasound performed [...] the above symptoms, contact our office at [phone] and ask to speak with anurse. After hours, you can call doctors registry at [phone] OR call [facility] at [phone] ask to have the doctor computational mathematician paged. If you consider this an emergency, dial 91-7 or go to your nearest emergency department. NEED HELP? Are you dealing with a violent or abusive relationship? Are you a victim of rape or sexual assult? Call [facility] ([place]) 24 hour Crisis Hotline: 733.147.3610 or 835-046-4054. MANUAL Your Guide to a Healthy manual is now on-line. Visit [email or web address] to download your free copy documented in this encounterAdena Pike Medical Center05-13-2022 Miscellaneous Notes* Telephone Encounter - Rajwinder Marroquin RN - 10/19/2021 9:08 AM EDT Scheduled for this morning with KJ. Rajwinder Marroquin RN documented in this encounterAdena Pike Medical Center05-05-2022 Miscellaneous Notes* Quick Notes - Yusra Martinez [...] reviewed Yusra Villegas MD [facility] Instructions* Patient Instructions* Anne Marie Gilliam Ma - 10/11/2021 2:24 PM EDT SEQUENTIAL SCREENINGS [facility] offers sequential screenings for women who are [...] testing. It will require an appointment withour dermatology technician. This is not an ultrasound performed [...] the above symptoms, contact our office at [phone] and ask to speak with anurse. After hours, you can call doctors registry at [phone] OR call [facility] at [phone] ask to have the doctor computational mathematician paged. If you consider this an emergency, dial 9-6-5 or go to your nearest emergency department. NEED HELP? Are you dealing with a violent or abusive relationship? Are you a victim of rape or sexual assult? Call [facility] ([facility] 24 hour Crisis Hotline: 475.108.8213 or 874-693-7237. MANUAL Your Guide to a Healthy manual is now on-line. Visit [email or web address] to download your free copy documented in this encounterCleveland [id number] Miscellaneous Notes* Quick Notes - Yusra Martinez [...] counts Yusra Villegas MD documented in this [facility] Instructions* Patient Instructions* Anne Marie Gilliam Ma - 09/26/2021 3:29 PM EDT SEQUENTIAL SCREENINGS [facility] offers sequential screenings for women who are [...] testing. It will require an appointment withour dermatology technician. This is not an ultrasound performed [...] the above symptoms, contact our office at [phone] and ask to speak with anurse. After hours, you can call [facility] [facility] at [phone] OR call [facility] at [phone] ask to have the doctor computational mathematician paged. If you consider this an emergency, dial 9--1 or go to your nearest emergency department. NEED HELP? Are you dealing with a violent or abusive relationship? Are you a victim of rape or sexual assult? Call [facility] ([place]) 24 hour Crisis Hotline: 974.288.5123 or 019-942-3188. MANUAL Your Guide to a Healthy manual is now on-line. Visit [email or web address] to download your free copy documented in this encounterA[facility]04[facility]22 Miscellaneous Notes* Telephone Encounter - Tamiko Ortiz LPN - 09/14/2021 9:16 AM EDT Patient scheduled documented in this encounterAdena [facility]04-07-2022 Miscellaneous Notes* Telephone Encounter - Rajwinder Marroquin [...] had a positive chlamydia. documented in this encounterAdena [facility]04-06-[facility]22 History of Present illness Narrative* Breonna Serna [...] severely ill: Yes Patient denies history of Guillain-Bruce Syndrome (a severe paralytic illness): Yes Tdap Adacel injection was given without incident. See immunizations for details of immunizations administered today. VIS sheet provided: Yes Provider Karyna Roberts DO was present in office at time of injection. Breonna Serna MA documented in this encounterAden[facility]04-06-2022 Miscellaneous Notes* Quick Notes - Karyna Roberts [...] wks Karyna Roberts DO documented in this encounterAdena [facility]04-06-2022 Instructions* Patient Instructions* Breonna Serna MA - 09/12/2021 4:08 PM EDT SEQUENTIAL SCREENINGS [facility] offers sequential screenings for women who are [...] testing. It will require an appointment withour dermatology technician. This is not an ultrasound performed [...] the above symptoms, contact our office at [phone] and ask to speak with anurse. After hours, you can call doctors registry at [phone] OR call [facility] at [phone] ask to have the doctor computational mathematician paged. If you consider this an emergency, dial 4-9-5 or go to your nearest emergency department. NEED HELP? Are you dealing with a violent or abusive relationship? Are you a victim of rape or sexual assult? Call [facility] ([place]) 24 hour Crisis Hotline: 641.317.7724 or 026-184-5082. MANUAL Your Guide to a Healthy manual is now on-line. Visit [email or web address] to download your free copy documented in this encounterAden[facility]12-13-[facility] History of Past illness Narrative* Problem Noted Date Resolved Date [facility] Chlamydia trachomatis infect ion in [...] 05/09/2017 . She sees a counselor at [facility]. Discussed increased risks of depression during and and importance of reporting the development or worsening of symptoms should they occur.Pt states she had suicidal thoughts in the past but none x 2 months. TKRN Patient requested diagnostic testing 07/03/2017 02/20/2018 Overview: 07/03/2017Patient desires nuchal ultrasound. TKRN Pelvic pain in 07/03/2017 018 Overview: 07/03/2017 Patient states she went to [facility] for pelvic pain 06/26/2017. She denies any bleeding or pain since then. Upon reviewof [facility] records [place] HCG was 68332. Ultrasound revealed gestational sac with no demonstrated pole @ 6w1d. Discussed with Dr Wing. Quantitative HCG ordered. Patient given miscarriage precautions. She is to call/come in if pain reocurrs, the development of bleeding or PRN problems. Dysmenorrhea 05/31/2013 04/23/2021 Fatigue 05/31/2013 04/23/2021 Headache(784.0) 04/28/2011 04/23/2021 Short stature 08/14/2017 documented as of this encounter (statuses as of 12/17/2021) [facility] of Past illness Narrative* Problem Noted Date Resolved Date [facility]/03/2021 Chlamydia trachomatis infect ion in [...] 05/09/2017 . She sees a counselor at [facility]. Discussed increased risks of depression during and and importance of reporting the development or worsening of symptoms should they occur.Pt states she had suicidal thoughts in the past but none x 2 months. TKRN Patient requested diagnostic testing 07/03/2017 02/20/2018 Overview: 07/03/2017Patient desires nuchal ultrasound. TKRN Pelvic pain in 07/03/2017 018 Overview: 07/03/2017 Patient states she went to [facility] for pelvic pain 06/26/2017. She denies any bleeding or pain since then. Upon reviewof [facility] records [place] HCG [place] 40729. Ultrasound revealed gestational sac with no demonstrated pole @ 6w1d. Discussed with Dr Wing. Quantitative HCG ordered. Patient given miscarriage precautions. She is to call/come in if pain reocurrs, the development of bleeding or PRN problems. Dysmenorrhea 05/31/2013 04/23/2021 Fatigue 05/31/2013 04/23/2021 Headache(784.0) 04/28/2011 04/23/2021 Short stature 08/14/2017 documented as of this encounter (statuses as of 12/17/2021) [facility] of Past illness Narrative* Problem Noted [...] 05/09/2017 . She sees a counselor at [facility]. Discussed increased risks of depression during and and importance of reporting the development or worsening of symptoms should they occur.Pt states she had suicidal thoughts in the past but none x 2 months. TKRN Patient requested diagnostic testing 07/03/2017 02/20/2018 Overview: 07/03/2017Patient desires nuchal ultrasound. TKRN Pelvic pain in 07/03/2017 018 Overview: 07/03/2017 Patient states she went to [facility] for pelvic pain 06/26/2017. She denies any bleeding or pain since then. Upon reviewof [facility] records quantitative HCG was . Ultrasound revealed gestational sac with no demonstrated pole @ 6w1d. Discussed with Dr Wing. Quantitative HCG ordered. Patient given miscarriage precautions. She is to call/come in if pain reocurrs, the development of bleeding or PRN problems. Dysmenorrhea 05/31/2013 04/23/2021 Fatigue 05/31/2013 04/23/2021 Headache(784.0) 04/28/2011 04/23/2021 Short stature 08/14/2017 documented as of this encounter (statuses as of 12/31/2021) [facility] Past illness Narrative* Problem Noted Date Resolved Date [facility] 12/03/2021 Chlamydia trachomatis infect ion in [...] 05/09/2017 . She sees a counselor at [facility]. Discussed increased risks of depression during and and importance of reporting the development or worsening of symptoms should they occur.Pt states she had suicidal thoughts in the past but none x 2 months. TKRN Patient requested diagnostic testing 07/03/2017 02/20/2018 Overview: 07/03/2017Patient desires nuchal ultrasound. TKRN Pelvic pain in 07/03/2017 018 Overview: 07/03/2017 Patient states she went to [facility] for pelvic pain 06/26/2017. She denies any bleeding or pain since then. Upon reviewof [facility] records [place] HCG was 48502. Ultrasound revealed gestational sac with no demonstrated pole @ 6w1d. Discussed with Dr Wing. Quantitative HCG ordered. Patient given miscarriage precautions. She is to call/come in if pain reocurrs, the development of bleeding or PRN problems. Dysmenorrhea 05/31/2013 04/23/2021 Fatigue 05/31/2013 04/23/2021 Headache(784.0) 04/28/2011 04/23/2021 Short stature 08/14/2017 documented as of this encounter (statuses as of 01/01/2022) [facility] of Past illness Narrative* Problem Noted [...] 05/09/2017 . She sees a counselor at [facility]. Discussed increased risks of depression during and and importance of reporting the development or worsening of symptoms should they occur.Pt states she had suicidal thoughts in the past but none x 2 months. TKRN Patient requested diagnostic testing 07/03/2017 02/20/2018 Overview: 07/03/2017Patient desires nuchal ultrasound. TKRN Pelvic pain in 07/03/2017 018 Overview: 07/03/2017 Patient states she went to [facility] for pelvic pain 06/26/2017. She denies any bleeding or pain since then. Upon reviewof [facility] records quantitative HCG was 59369. Ultrasound revealed gestational sac with no demonstrated pole @ 6w1d. Discussed with Dr Wing. Quantitative HCG ordered. Patient given miscarriage precautions. She is to call/come in if pain reocurrs, the development of bleeding or PRN problems. Dysmenorrhea 05/31/2013 04/23/2021 Fatigue 05/31/2013 04/23/2021 Headache(784.0) 04/28/2011 04/23/2021 Short stature 08/14/2017 documented as of this encounter (statuses as of 02/05/2022) [facility] Past illness Narrative* Problem Noted [...] Overview: 07/03/2017 Patient states she went to [facility] for pelvic pain 06/26/2017. She denies any bleeding or pain since then. Upon reviewof [facility] records quantitative HCG was 28566. Ultrasound revealed gestational sac with no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 5:32am Advance Directive Response Recorded Date/ Time Living Will No September 14, 2024 12:14pm Do you have a Healthcare Power of Grain Shoveler? No September 14, 2024 12:14pm Do you have a Healthcare Power of Grain Shoveler? No October 30, 2024 8:29am Do you have a Healthcare Power of Grain Shoveler? No January 01, 2025 9:24am Chief Complaint and Reason for Visit Chief [...] DENTAL PAIN September 14, 2024 12:1 3pm Chief Complaint Admit Date DENTAL PAIN September 14, 2024 12:1 3pm abd pain October 30, 2024 8:18a m Sore Throat January 01, 2025 9:19 am Medications Administered Section Inactive Administered Medications - [...] section and content) DATE CREATED AUTHOR 11/27/2017 [facility] DATE CREATED AUTHOR AUTHOR'S ORGANIZ ATION 01/10/2021 [facility] DATE CREATED AUTHOR AUTHOR'S ORGANIZ ATION 08/28/2022 [facility] DATE CREATED AUTHOR AUTHOR'S ORGANIZ ATION 01/08/2025 [facility] DATE CREATED AUTHOR AUTHOR'S ORGANIZ ATION 01/15/2025 [facility] Goals (unrecognized section and content) Goals may [...] or prosecute any alcohol or drug abuse patient.[facility] the event this information is protected by the Federal Confidentiality of Alcohol and Drug Abuse Patient Records regulations: The Federal rules restrict any use of the information to criminally investigate or prosecute any alcohol or drug abuse patient.[facility] Center[facility] the event this information is protected by the Federal Confidentiality of Alcohol and Drug Abuse Patient Records regulations: The Federal rules restrict any use of the information to criminally investigate or prosecute any alcohol or drug abuse patient.[facility] the event this information is protected by the Federal Confidentiality of Alcohol and Drug Abuse Patient Records regulations: The Federal rules restrict any use of the information to criminally investigate or prosecute any alcohol or drug abuse patient.[facility] Center[facility] the event this information is protected by the Federal Confidentiality of Alcohol and Drug Abuse Patient Records regulations: The Federal rules restrict any use of the information to criminally investigate or prosecute any alcohol or drug abuse patient.[facility] Center[facility] the event this information is protected by the Federal Confidentiality of Alcohol and Drug Abuse Patient Records regulations: The Federal rules restrict any use of the information to criminally investigate or prosecute any alcohol or drug abuse patient.[facility] the event this information is protected by the Federal Confidentiality of Alcohol and Drug Abuse Patient Records regulations: The Federal rules restrict any use of the information to criminally investigate or prosecute any alcohol or drug abuse patient.[facility] Center[facility] the event this information is protected by the Federal Confidentiality of Alcohol and Drug Abuse Patient Records regulations: The Federal rules restrict any use of the information to criminally investigate or prosecute any alcohol or drug abuse patient.[facility] CenterIn the event this information is protected by the Federal Confidentiality of Alcohol and Drug Abuse Patient Records regulations: The Federal rules restrict any use of the information to criminally investigate or prosecute any alcohol or drug abuse patient.[facility] CenterIn the event this information is protected by the Federal Confidentiality of Alcohol and Drug Abuse Patient Records regulations: The Federal rules restrict any use of the information to criminally investigate or prosecute any alcohol or drug abuse patient.[facility] CenterIn the event this information is protected by the Federal Confidentiality of Alcohol and Drug Abuse Patient Records regulations: The Federal rules restrict any use of the information to criminally investigate or prosecute any alcohol or drug abuse patient.[facility] CenterIn the event this information is protected by the Federal Confidentiality of Alcohol and Drug Abuse Patient Records regulations: The Federal rules restrict any use of the information to criminally investigate or prosecute any alcohol or drug abuse patient.[facility] CenterIn the event this information is protected by the Federal Confidentiality of Alcohol and Drug Abuse Patient Records regulations: The Federal rules restrict any use of the information to criminally investigate or prosecute any alcohol or drug abuse patient.[facility] Center[facility] the event this information is protected by the Federal Confidentiality of Alcohol and Drug Abuse Patient Records regulations: The Federal rules restrict any use of the information to criminally investigate or prosecute any alcohol or drug abuse patient.[facility] Center[facility] the event this information is protected by the Federal Confidentiality of Alcohol and Drug Abuse Patient Records regulations: The Federal rules restrict any use of the information to criminally investigate or prosecute any alcohol or drug abuse patient.[facility] Center[facility] the event this information is protected by the Federal Confidentiality of Alcohol and Drug Abuse Patient Records regulations: The Federal rules restrict any use of the information to criminally investigate or prosecute any alcohol or drug abuse patient.[facility] CenterIn the event this information is protected by the Federal Confidentiality of Alcohol and Drug Abuse Patient Records regulations: The Federal rules restrict any use of the information to criminally investigate or prosecute any alcohol or drug abuse patient.[facility] CenterIn the event this information is protected by the Federal Confidentiality of Alcohol and Drug Abuse Patient Records regulations: The Federal rules restrict any use of the information to criminally investigate or prosecute any alcohol or drug abuse patient.[facility] CenterIn the event this information is protected by the Federal Confidentiality of Alcohol and Drug Abuse Patient Records regulations: The Federal rules restrict any use of the information to criminally investigate or prosecute any alcohol or drug abuse patient.[facility] CenterIn the event this information is protected by the Federal Confidentiality of Alcohol and Drug Abuse Patient Records regulations: The Federal rules restrict any use of the information to criminally investigate or prosecute any alcohol or drug abuse patient.[facility] CenterIn the event this information is protected by the Federal Confidentiality of Alcohol and Drug Abuse Patient Records regulations: The Federal rules restrict any use of the information to criminally investigate or prosecute any alcohol or drug abuse patient.[facility] CenterIn the event this information is protected by the Federal Confidentiality of Alcohol and Drug Abuse Patient Records regulations: The Federal rules restrict any use of the information to criminally investigate or prosecute any alcohol or drug abuse patient.[facility] CenterIn the event this information is protected by the Federal Confidentiality of Alcohol and Drug Abuse Patient Records regulations: The Federal rules restrict any use of the information to criminally investigate or prosecute any alcohol or drug abuse patient.[facility] CenterIn the event this information is protected by the Federal Confidentiality of Alcohol and Drug Abuse Patient Records regulations: The Federal rules restrict any use of the information to criminally investigate or prosecute any alcohol or drug abuse patient.[facility] CenterIn the event this information is protected by the Federal Confidentiality of Alcohol and Drug Abuse Patient Records regulations: The Federal rules restrict any use of the information to criminally investigate or prosecute any alcohol or drug abuse patient.[facility] CenterIn the event this information is protected by the Federal Confidentiality of Alcohol and Drug Abuse Patient Records regulations: The Federal rules restrict any use of the information to criminally investigate or prosecute any alcohol or drug abuse patient.[facility] CenterIn the event this information is protected by the Federal Confidentiality of Alcohol and Drug Abuse Patient Records regulations: The Federal rules restrict any use of the information to criminally investigate or prosecute any alcohol or drug abuse patient.[facility] CenterIn the event this information is protected by the Federal Confidentiality of Alcohol and Drug Abuse Patient Records regulations: The Federal rules restrict any use of the information to criminally investigate or prosecute any alcohol or drug abuse patient.[facility] CenterIn the event this information is protected by the Federal Confidentiality of Alcohol and Drug Abuse Patient Records regulations: The Federal rules restrict any use of the information to criminally investigate or prosecute any alcohol or drug abuse patient.[facility] CenterIn the event this information is protected by the Federal Confidentiality of Alcohol and Drug Abuse Patient Records regulations: The Federal rules restrict any use of the information to criminally investigate or prosecute any alcohol or drug abuse patient.[facility] CenterIn the event this information is protected by the Federal Confidentiality of Alcohol and Drug Abuse Patient Records regulations: The Federal rules restrict any use of the information to criminally investigate or prosecute any alcohol or drug abuse patient.[facility] CenterIn the event this information is protected by the Federal Confidentiality of Alcohol and Drug Abuse Patient Records regulations: The Federal rules restrict any use of the information to criminally investigate or prosecute any alcohol or drug abuse patient.[facility] CenterIn the event this information is protected by the Federal Confidentiality of Alcohol and Drug Abuse Patient Records regulations: The Federal rules restrict any use of the information to criminally investigate or prosecute any alcohol or drug abuse patient.[facility] CenterIn the event this information is protected by the Federal Confidentiality of Alcohol and Drug Abuse Patient Records regulations: The Federal rules restrict any use of the information to criminally investigate or prosecute any alcohol or drug abuse patient.[facility] CenterIn the event this information is protected by the Federal Confidentiality of Alcohol and Drug Abuse Patient Records regulations: The Federal rules restrict any use of the information to criminally investigate or prosecute any alcohol or drug abuse patient.[facility] CenterIn the event this information is protected by the Federal Confidentiality of Alcohol and Drug Abuse Patient Records regulations: The Federal rules restrict any use of the information to criminally investigate or prosecute any alcohol or drug abuse patient.[facility] CenterIn the event this information is protected by the Federal Confidentiality of Alcohol and Drug Abuse Patient Records regulations: The Federal rules restrict any use of the information to criminally investigate or prosecute any alcohol or drug abuse patient.[facility] CenterIn the event this information is protected by the Federal Confidentiality of Alcohol and Drug Abuse Patient Records regulations: The Federal rules restrict any use of the information to criminally investigate or prosecute any alcohol or drug abuse patient.[facility] CenterIn the event this information is protected by the Federal Confidentiality of Alcohol and Drug Abuse Patient Records regulations: The Federal rules restrict any use of the information to criminally investigate or prosecute any alcohol or drug abuse patient.[facility] CenterIn the event this information is protected by the Federal Confidentiality of Alcohol and Drug Abuse Patient Records regulations: The Federal rules restrict any use of the information to criminally investigate or prosecute any alcohol or drug abuse patient.[facility] CenterIn the event this information is protected by the Federal Confidentiality of Alcohol and Drug Abuse Patient Records regulations: The Federal rules restrict any use of the information to criminally investigate or prosecute any alcohol or drug abuse patient.[facility] CenterIn the event this information is protected by the Federal Confidentiality of Alcohol and Drug Abuse Patient Records regulations: The Federal rules restrict any use of the information to criminally investigate or prosecute any alcohol or drug abuse patient.[facility] CenterIn the event this information is protected by the Federal Confidentiality of Alcohol and Drug Abuse Patient Records regulations: The Federal rules restrict any use of the information to criminally investigate or prosecute any alcohol or drug abuse patient.[facility] CenterIn the event this information is protected by the Federal Confidentiality of Alcohol and Drug Abuse Patient Records regulations: The Federal rules restrict any use of the information to criminally investigate or prosecute any alcohol or drug abuse patient.[facility] CenterIn the event this information is protected by the Federal Confidentiality of Alcohol and Drug Abuse Patient Records regulations: The Federal rules restrict any use of the information to criminally investigate or prosecute any alcohol or drug abuse patient.[facility] Reason for Visit (unrecogniz ed section and content) Reason Onset Date Comments Care 09/12/2021 Reason Comments Results + STD Reason Onset Date Comments Care 09/26/2021 Reason Onset Date Comments Care 10/11/2021 Reason Comments US Specialty Diagnoses / Procedures Referred By Carolina colmenares Referred To Contact [facility] Diagnoses 33 weeks gestation of Uterine size-date discrepancy in third trimester History of macrosomia in in prior , currently in third trimester Procedures OBSTETRIC ULTRASOUND WHI US PREG UTERUS AFTER 1ST TRIMEST GESTATION Yusra Mora MD [address] [place] [address] [facility] [address] [place] [address] Referral ID Status Reason Start Date Expiration Date V isits Requested Visits Authorized [id number] Closed Auto-Generate d Referral 10/11/2021 10/11/2022 1 [...] Referred By Carolina colmenares Referred To Contact [facility] Diagnoses Nexplanon insertion Encounter for surveillance of implantable subdermal contraceptive Procedures NEXPLANON INSERTION ETONOGESTREL IMPLANT SYSTEM INSERT DRUG IMPLANT DEVICE REMOVAL NON-BIODEGRADABLE DRUG DELIVERY IMPLANT aKrli Jacinto MD [address] [place] [address] [facility] [address] [place] [address] Referral ID Status Reason Start Date Expiration Date Visits Requested Visits Authorized [id number] Authorized Auto-Generat ed Referral 12/19/2021 06/08/2022 2 [...] x 1 day Reason Comments Well Woman Reason Comments Colposcopy Specialty Diagnoses / Procedures Referred By Contac t Referred To Contact [facility] Diagnoses ASCUS with positive high risk HPV cervical Procedures COLPOSCOPY COLPOSCOPY CERVIX BX CERVIX & ENDOCRV CURRETAGE Janelle Ennis, RADIOLOGIC ELECTRONIC SPECIALIST.PROJECT DRILLING ENGINEER [address] [place] [address] Phone: tel: fax: [facility] [address] [place] [address] Referral ID Status Reason Start Date Expiration Date V isits Requested Visits Authorized [id number] Closed Auto-Generate d Referral 12/28/2024 12/28/2025 1 1 Care Teams (unrecognized sec tion and content) Formula Room Worker Relationship Specialty Start Date End Date Maya Rodríguez MD [address] [place] [address] PCP - General Pediatrics 11/21/21 11/21/21 Team [...] Primary Care Provider Active Dr. Kirby Camara , Emergency Provider Active Team Status: Inactive Member [...] September 14, 2024 End: September 14, 2024 Team Status: Active Member Role/Relationship Status Dates No Primary Care Physician Primary Care Provider Active Team Status: Inactive Member Role/Relationship Status Dates No Primary Care Physician Primary Care Provider Active Start: September 14, 2024 End: September 14, 2024 Dr. Phong Birch DO Attending Provider Active S tart: September 14, 2024 End: September 14, 2024 Dr. Phong Birch DO Emergency Provider Active S tart: September 14, 2024 End: September 14, 2024 Team Status: Inactive Member Role/Relationship Status Dates No Primary Care Physician Primary Care Provider Active Start: October 30, 2024 End: October 30, 2024 Dr. Luis Armando Becerril DO Attending Provider Active Start: October 30, 2024 End: October 30, 2024 Dr. Luis Armando Becerril , DO Emergency Provider Active Start: October 30, 2024 End: October 30, 2024 Team Status: Inactive Member Role/Relationship Status Dates No Primary Care Physician Primary Care Provider Active Start: January 01, 2025 End: January 01, 2025 Dr. Mona Watts , DO Emergency Provider Active Start: January 01, 2025 End: January 01, 2025 FOR RECORDS PERTAINING TO PATIENTS WHO ARE [...] BE BASED ON THE PRIMARY CLINICAL RECORDS. [email or web address] [facility]. provides no warranty or guarantee of the accuracy or completeness of information in this document.
--- NOTE | 2025-01-15 22:42 | EX.ED.DYSGE1 ---
HPI History of Present Illness Chief Complaint: Sore Throat Informant: patient and spouse/S.O. Narrative Narrative: Patient is a 24-year-old female with reported history of anxiety and depression as well as ADHD. She states she was diagnosed with asthma when she was younger but reportedly outgrew it. She states that she does smoke/vape daily. She reports that for approximately 4 weeks now she has had nasal congestion drainage and cough. She states she is felt short of breath with this. She was seen in the ER roughly 2 weeks ago and had an x-ray which was normal. She states she took a short round of prednisone and has been using an inhaler daily. Despite this treatment she continues to have congestion and cough and secondary to this comes in for evaluation. [facility] Medical History HPV (human papilloma virus) infection Injury of head and neck Asthma Anxiety Depression GERD (gastroesophageal reflux disease) Smoker Diverticulitis Chlamydia infection affecting Nicotine use Marijuana use Migraines Asthma ADHD Depression with anxiety Home Medications ?Medication ?Instructions ?Recorded ?Last Taken ?Type etonogestrel 68 mg subdermal 68 mg subdermal X1 Check with 10/11/22 10/11/22 08:00 History implant (Nexplanon) primary doctor ibuprofen 600 mg tablet 600 mg PO Q6H PRN PRN Pain 1-10 Or 10/15/22 Unknown Rx Fever #0 tabs dicyclomine 20 mg tablet 20 mg PO TID #20 tabs 06/25/24 Unknown Rx ondansetron 4 mg disintegrating 4 mg PO Q8H PRN PRN Nausea #10 tabs 06/25/24 Unknown Rx tablet clindamycin HCl 300 mg capsule 300 mg PO Q6H #40 CAPSULES 09/14/24 Unknown Rx (Cleocin HCl) hydrocodone-acetaminophen 5-325mg 1 tab PO Q4H PRN PRN Pain 2 days 09/14/24 Unknown Rx 5mg-325mg #10 TABLETS amoxicillin 875 mg-potassium 875 mg PO Q12H #20 TABLETS 10/30/24 Unknown Rx clavulanate 125 mg tablet albuterol sulfate 90 mcg/actuation 1 - 2 puff inhalation Q4H PRN PRN 01/01/25 Unknown Rx aerosol inhaler (Ventolin HFA) Wheezing #1 inh prednisone 20 mg tablet 40 mg (2 x 20 mg) PO DAILY #10 tabs 01/01/25 Unknown Rx azithromycin 250 mg tablet See Rx Instructions PO .COMPLEX #6 01/15/25 Unknown Rx (Zithromax Z-Bruno) tabs prednisone 10 mg tablet 10 mg PO DAILY #48 TABLETS 01/15/25 Unknown Rx Allergy/AdvReac Type Severity Reaction Status Date / Time No Known Allergies Allergy Verified 01/15/25 22:13 Family History Father Hypertrophic cardiomyopathy Grandfather Hypertrophic cardiomyopathy Surgical History H/O partial resection of colon History of appendectomy History of tonsillectomy Social History Smoking Status: Current every day smoker tobacco type: e-cigarettes alcohol intake: current ROS ROS ED Constitutional Constitutional ED: Denies chills or fever(s) Eyes Eyes: Denies blurry vision or change in vision ENT ENT ED: Reports rhinorrhea and sore throat Cardiovascular Cardiovascular: Denies chest pain Respiratory/Chest Respiratory/Chest: Reports cough and dyspnea Gastrointestinal Gastrointestinal: Denies abdominal pain, diarrhea, nausea or vomiting Genitourinary Genitourinary ED: Denies dysuria Musculoskeletal Musculoskeletal: Denies back pain or myalgias Integumentary Denies rash Neurologic Neurologic: Denies headache(s) Hematologic/Lymphatic Hematologic/Lymphatic: Denies easy bleeding or easy bruising Allergic/Immunologic Allergic/Immunologic ED: Denies mouth swelling or tongue swelling EXAM Physical Exam Const Vital Signs: 01/15/25 22:14 01/15/25 22:54 Temperature 97.9 F 97.9 F Temperature Source Oral Pulse Rate 106 H 110 H Respiratory Rate 18 18 Blood Pressure 130/85 H 139/82 H Blood Pressure Mean 100 101 Pulse Ox 96 99 Oxygen Delivery Method Room Air Positive well nourished and well developed General Appearance ED: well developed; Negative for pallor HEENT HEENT Narrative: Bilateral TMs are retracted but show no secondary findings to suggest infection Nasal mucosa is hyperemic and boggy with enlarged inferior nasal turbinates There is cobblestoning noted in the posterior pharynx consistent with sinus drainage but no airway edema or compromise; no secondary findings to suggest infection Eyes PERRL and EOMs intact bilaterally Neck supple and no JVD Resp normal respiratory effort Resp Narrative: Breath sounds are diminished throughout with diffuse expiratory wheeze and rhonchi noted in the bilateral bases However no nasal flaring retractions tachypnea or accessory muscle use Cardio regular rate and regular rhythm Extremity normal to inspection Extremity Narrative: No asymmetric edema no pitting edema negative Homans' sign bilaterally Neuro oriented x3, CN's II-XII intact bilaterally and no sensory deficits noted Sensorium / Orientation: alert Motor Exam: strength 5/5 throughout Psych mental status grossly normal Skin no rashes or lesions noted General Skin Exam: Negative for jaundice or pallor MDM MDM MDM Narrative Medical decision making narrative: Patient arrived to the ER satting in the high 90s on room air without increased work of breathing. She reported symptoms have been present for approximately 4 weeks. She had an x-ray done on January 01 which showed no sign of acute cardiopulmonary symptoms such as pneumonia pneumothorax or pleural effusion. Her history and exam is consistent with a recurrent or persistent viral URI. She does not have chest pain with inspiration going against PE. She denies having any fever during this 4-week history going against pneumonia. She has had her tonsils and adenoids removed previously and there is no sign of infection in the posterior pharynx such as pharyngitis and as there is no tonsillar tissue she does not have findings for peritonsillar abscess and there is no change in voice or difficulty with secretions going against epiglottitis. Based on her history and exam I do feel patient most likely has a prolonged or recurrent URI and this is exacerbated by her smoking/vaping history. However as symptoms have been present for approximately 4 weeks without symptom resolution I will try her on a Z-Bruno and will also place her on a prolonged prednisone taper as she has persistent lung inflammation. But without signs of respiratory distress or hypoxia there is no need for further intervention and she is otherwise safe for discharge History & Record Review Discussion w/independent historian: Patient and Significant other Discharge Plan Triage Chief Complaint: Sore Throat Other Complaint: Wound Check ED Provider: Jose Melara Dx/Rx/DC Orders Clinical Impression: Viral upper respiratory tract infection with cough, Bronchospasm, Current every day nicotine vaping Instructions: ED Bronchospasm (Adult), ED URI, Viral W/ Wheezing (Adult) Prescriptions: New prednisone 10 mg tablet 10 mg PO DAILY Qty: 48 0RF Rx Instructions: 6 po qd x 3 days, 4 po qd x 3 days, 2 po qd x 3 days, 1 po qd x 3 days azithromycin [Zithromax Z-Bruno] 250 mg tablet See Rx Instructions .ROUTE .COMPLEX Qty: 6 0RF Rx Instructions: For 250 mg dose pack: take 500 mg today (day 1), then 250 mg for 4 days (days 2-5) No Action Nexplanon 68 mg Implant 68 mg SUBDERMAL X1 ibuprofen 600 mg Tablet 600 mg PO Q6H PRN PRN (Reason: Pain 1-10 Or Fever) Qty: 0 0RF clindamycin HCl [Cleocin HCl] 300 mg capsule 300 mg PO Q6H Qty: 40 0RF hydrocodone-acetaminophen 5-325 mg tablet 1 tab PO Q4H PRN PRN (Reason: Pain) 2 Days Qty: 10 0RF dicyclomine 20 mg tablet 20 mg PO TID Qty: 20 0RF ondansetron 4 mg tablet,disintegrating 4 mg PO Q8H PRN PRN (Reason: Nausea) Qty: 10 0RF amoxicillin-pot clavulanate 875-125 mg tablet 875 mg PO Q12H Qty: 20 0RF prednisone 20 mg tablet 40 mg PO DAILY Qty: 10 0RF albuterol sulfate [Ventolin HFA] 90 mcg/actuation HFA aerosol inhaler 1 - 2 puff inhalation Q4H PRN PRN (Reason: Wheezing) Qty: 1 0RF Primary Care Provider: Care Physician,No Primary Referrals: Care Physician,No Primary [Primary Care Provider] - Activity Restrictions/Additional Instructions: Your history and exam is most consistent with persistent cough and shortness of breath from lung inflammation and bronchospasm which is most likely from a viral infection. The steps infection can last for up to 2 months. Please continue to use your albuterol inhaler to help with spasm and shortness of breath. Use the steroid to reduce lung inflammation as well. Based on the prolonged nature of symptoms please take the Z-Bruno to ensure there is no missed infection. Return to the ER should you have any further concerns Print Language: Mohawk Disposition Disposition: Home, Self Care Discharge Date/Time: 01/15/25 22:59
[2025-01-15 22:51] VITALS: PULSE 111; RESP 18
[2025-01-15] MEDS: Albuterol Sulfate 8 gm Inhaler (60 puffs) 2 PUFF INHALATION (22:51)
[2025-01-15 22:54] VITALS: BP 139/82; PULSE 110; RESP 18; TEMP 36.6; O2SAT 99
[2025-01-16 00:06] LABS: hCG Titer Quant., Serum < 1 mIU/mL (<9 non-preg)
== END 2025-01-15 22:59 | disposition home or self-care (01) ==
PROVIDERS: Emergency Provider Emergency Medicine; Visit Provider Emergency Medicine
DX: J06.9 Acute upper respiratory infection, unspecified (principal); F17.290 Nicotine dependence, other tobacco product, uncomplicated; J45.909 Unspecified asthma, uncomplicated; Z79.51 Long term (current) use of inhaled steroids
CPT/HCPCS: 84702; 94640; 99284

== ENCOUNTER 2025-04-16 13:49 | Emergency (ER) | payer MEDICAID, SELFPAY ==
[2025-04-16 13:50] VITALS: BP 138/80; PULSE 102; RESP 16; TEMP 36.6; O2SAT 99
[2025-04-16 13:59] VITALS: BMI 24.7
--- NOTE | 2025-04-16 14:31 | ED.VIS.FEGU ---
HPI HPI - Female History of Present Illness Chief Complaint: Vag Bld, Preg Informant: patient Narrative Narrative: Patient is a 25-year-old female, , presenting with concerns about status and gestational age. Patient states her primary concern with coming to the ER today was I need to know how far along I am. - On 04/10, patient took a test, which was positive; took another test on 04/11, which showed a faint line; a third test on 04/12 was also positive. - Urgent care visit on 04/12 or 04/13 confirmed with a positive test; advised to contact OB. - Missed initial OB appointment due to a scheduling misunderstanding; rescheduled for several weeks later. - Visited a care center yesterday; ultrasound was not performed due to uncertainty about gestational age. - Last normal menstrual cycle was in late January, lasting about 5 days. - Reports spotting for 2 days in mid to late February. - Currently experiencing nausea, breast enlargement, and difficulty sleeping on certain sides. - Noticed clothing becoming tighter due to abdominal enlargement. - Denies significant abdominal pain or vaginal bleeding. - Increased urinary frequency, denies dysuria. - History of heavy alcohol consumption prior to confirmation. - Recently discontinued control in November and cycles have been erratic since. [facility] Medical History HPV (human papilloma virus) infection Injury of head and neck Asthma Anxiety Depression GERD (gastroesophageal reflux disease) Smoker Diverticulitis Chlamydia infection affecting Nicotine use Marijuana use Migraines Asthma ADHD Depression with anxiety Home Medications ?Medication ?Instructions ?Recorded ?Last Taken ?Type etonogestrel 68 mg subdermal 68 mg subdermal X1 Check with 10/11/22 10/11/22 08:00 History implant (Nexplanon) primary doctor ibuprofen 600 mg tablet 600 mg PO Q6H PRN PRN Pain 1-10 Or 10/15/22 Unknown Rx Fever #0 tabs dicyclomine 20 mg tablet 20 mg PO TID #20 tabs 06/25/24 Unknown Rx ondansetron 4 mg disintegrating 4 mg PO Q8H PRN PRN Nausea #10 tabs 06/25/24 Unknown Rx tablet clindamycin HCl 300 mg capsule 300 mg PO Q6H #40 CAPSULES 09/14/24 Unknown Rx (Cleocin HCl) hydrocodone-acetaminophen 5-325mg 1 tab PO Q4H PRN PRN Pain 2 days 09/14/24 Unknown Rx 5mg-325mg #10 TABLETS amoxicillin 875 mg-potassium 875 mg PO Q12H #20 TABLETS 10/30/24 Unknown Rx clavulanate 125 mg tablet albuterol sulfate 90 mcg/actuation 1 - 2 puff inhalation Q4H PRN PRN 01/01/25 Unknown Rx aerosol inhaler (Ventolin HFA) Wheezing #1 inh prednisone 20 mg tablet 40 mg (2 x 20 mg) PO DAILY #10 tabs 01/01/25 Unknown Rx azithromycin 250 mg tablet See Rx Instructions PO .COMPLEX #6 01/15/25 Unknown Rx (Zithromax Z-Bruno) tabs prednisone 10 mg tablet 10 mg PO DAILY #48 TABLETS 01/15/25 Unknown Rx vitamins no.102-iron 90 1 cap PO DAILY #30 caps 04/16/25 Unknown Rx mg-folate 1 mg-dha 200 mg capsule Allergy/AdvReac Type Severity Reaction Status Date / Time No Known Allergies Allergy Verified 04/16/25 13:52 Family History Father Hypertrophic cardiomyopathy Grandfather Hypertrophic cardiomyopathy Surgical History H/O partial resection of colon History of appendectomy History of tonsillectomy Social History Smoking Status: Current some day smoker tobacco type: e-cigarettes alcohol intake: current ROS ROS ED Constitutional Constitutional ED: Denies chills or fever(s) Eyes Eyes: Denies change in vision or diplopia ENT ENT ED: Denies rhinorrhea or sore throat Cardiovascular Cardiovascular: Denies chest pain, lightheadedness, palpitations or syncope Respiratory/Chest Respiratory/Chest: Denies cough or dyspnea Gastrointestinal Gastrointestinal: Denies abdominal pain, diarrhea, nausea or vomiting Genitourinary Genitourinary ED: Reports urinary frequency and other Details: no pelvic pain ; Denies dysuria, hematuria, vaginal bleeding or vaginal discharge Musculoskeletal Musculoskeletal: Denies back pain or neck pain Integumentary Denies abscess or rash Neurologic Neurologic: Denies headache(s), paresthesias or weakness Psychiatric Psychiatric: Denies anxiety or suicidal thoughts EXAM Physical Exam Const Vital Signs: 04/16/25 13:50 Temperature 98 F Temperature Source Oral Pulse Rate 102 H Respiratory Rate 16 Blood Pressure 138/80 H Blood Pressure Mean 99 Pulse Ox 99 Oxygen Delivery Method Room Air Positive well nourished and well developed General Appearance ED: well developed and NAD HEENT Reports moist mucous membranes normocephalic and atraumatic Eyes PERRL and EOMs intact bilaterally Neck full ROM and supple Resp normal respiratory effort and clear to auscultation bilaterally Cardio regular rate, regular rhythm and no murmurs GI non-tender and non-distended Auscultation: normoactive bowel sounds Palpation: soft Speculum Exam - Vagina: Negative for vaginal bleeding or vaginal discharge Back/Spine no CVA tenderness General Back: other FROM Extremity normal to inspection General Extremety ED: Negative for edema, pulses abnormal or tenderness General Extremity: Negative for edema or pulses abnormal Neuro oriented x3, CN's II-XII intact bilaterally and no sensory deficits noted Sensorium / Orientation: awake and alert Motor Exam: strength 5/5 throughout Skin no rashes or lesions noted and no wounds MDM MDM MDM Narrative Medical decision making narrative: Assessment: The patient is a 25-year-old female presenting for determination of gestational age after multiple home and urgent-care positive tests. Bedside pelvic ultrasound shows a possible gestational sac measuring 5 weeks 4 days with no pole or cardiac activity, and an avascular left pelvic mass likely representing colon/stool. Given the imaging and absence of pain, vaginal bleeding, or hemodynamic instability, early intrauterine is most likely; ectopic is considered unlikely. Plan: - Discussed ultrasound findings, estimate of gestational age, and limitations of bedside dating - Provided detailed return precautions for pain, bleeding, or symptoms suggestive of ectopic or hemorrhage - Counseled to abstain from alcohol and begin vitamins - Prescribed vitamins - Discharged home with instructions to follow up with obstetrics for formal dating ultrasound and care Diagnostics: - Bedside pelvic ultrasound: avascular mass in left pelvis likely colon/stool, can safely be imaged as outpatient; uterus largely collapsed with possible gestational sac measuring 5 weeks 4 days; no pole or heart tones visualized; overall impression favors early intrauterine and makes ectopic unlikely. Independently interpreted by Mono murdock. Discharge Plan Triage Chief Complaint: Vag Bld, Preg ED Provider: Mono Sharma Dx/Rx/DC Orders Clinical Impression: at early stage Instructions: : Weeks 6 to 10 Prescriptions: New PNV [id number] 90 mg iron- 1 mg-200 mg capsule 1 cap PO DAILY Qty: 30 0RF No Action Nexplanon 68 mg Implant 68 mg SUBDERMAL X1 ibuprofen 600 mg Tablet 600 mg PO Q6H PRN PRN (Reason: Pain 1-10 Or Fever) Qty: 0 0RF clindamycin HCl [Cleocin HCl] 300 mg capsule 300 mg PO Q6H Qty: 40 0RF hydrocodone-acetaminophen 5-325 mg tablet 1 tab PO Q4H PRN PRN (Reason: Pain) 2 Days Qty: 10 0RF prednisone 10 mg tablet 10 mg PO DAILY Qty: 48 0RF Rx Instructions: 6 po qd x 3 days, 4 po qd x 3 days, 2 po qd x 3 days, 1 po qd x 3 days azithromycin [Zithromax Z-Bruno] 250 mg tablet See Rx Instructions .ROUTE .COMPLEX Qty: 6 0RF Rx Instructions: For 250 mg dose pack: take 500 mg today (day 1), then 250 mg for 4 days (days 2-5) dicyclomine 20 mg tablet 20 mg PO TID Qty: 20 0RF ondansetron 4 mg tablet,disintegrating 4 mg PO Q8H PRN PRN (Reason: Nausea) Qty: 10 0RF amoxicillin-pot clavulanate 875-125 mg tablet 875 mg PO Q12H Qty: 20 0RF prednisone 20 mg tablet 40 mg PO DAILY Qty: 10 0RF albuterol sulfate [Ventolin HFA] 90 mcg/actuation HFA aerosol inhaler 1 - 2 puff inhalation Q4H PRN PRN (Reason: Wheezing) Qty: 1 0RF Primary Care Provider: Care Physician,No Primary Referrals: Karli Jacinto MD [Med Staff - Active Staff, Obstetrics-Gynecology (OBGYN)] - As soon as possible Activity Restrictions/Additional Instructions: - Start taking the prescribed vitamins once daily; prescription has been sent to your pharmacy. - Pelvic ultrasound today showed a likely gestational sac inside the uterus measuring about 5 weeks and 4 days; no pole or heartbeat is expected to be visible at this early stage. - Avoid alcohol throughout your . - Return to the emergency department if you develop signs or symptoms of an ectopic or other urgent condition (for example, severe abdominal pain or vaginal bleeding). - Schedule a follow-up appointment with your short piece handler to confirm your dating and continue care. Print Language: Persian Disposition Disposition: Home, Self Care
--- NOTE | 2025-04-16 14:42 | CM.ED ---
Social Work Date of referral: 04/16/25 Reason for referral: No primary care physician (PCP) on file. Referred by: Social Work Identification Patient provided consent to social work visit. Patient confirmed she doesn't have a PCP and stated her outreach attempts have either resulted in long wait lists and/or providers not accepting new patients. Patient indicated she either goes to the ED and/or Urgent Care for medical concerns. [employer] C[employer] Specialist Supervisor provided verbal education as well as written handouts on [facility] which has the [facility] and the Center and also talked about [place]. Patient accepted material and expressed appreciation. Colette Guardado, PEDIATRIC PHYSICAL THERAPY ASSISTANT, SERVICES HOST
[2025-04-16 14:46] VITALS: BP 116/69; PULSE 97; RESP 18; TEMP 36.8; O2SAT 100
== END 2025-04-16 14:47 | disposition home or self-care (01) ==
PROVIDERS: Emergency Provider Emergency Medicine; Visit Provider Emergency Medicine
DX: Z32.01 Encounter for pregnancy test, result positive (principal); O99.331 Smoking (tobacco) complicating pregnancy, first trimester; F17.290 Nicotine dependence, other tobacco product, uncomplicated; Z3A.01 Less than 8 weeks gestation of pregnancy
CPT/HCPCS: 99282; A4216

== ENCOUNTER 2025-04-21 14:35 | Emergency (ER) | payer MEDICAID, SELFPAY ==
[2025-04-21 14:36] VITALS: BP 133/86; PULSE 124; RESP 18; TEMP 36.4; O2SAT 100; BMI 25.2
--- NOTE | 2025-04-21 15:06 | US_ITS ---
PROCEDURE: TRANSVAGINAL W/PREG US 04/21/2025 REASON FOR EXAM: L ABD PAIN TECHNIQUE: Procedure Code: USTVAGP Modality: US Procedure: TRANSVAGINAL W/PREG US COMPARISON: None. FINDINGS ENDOMETRIUM: Complex heterogeneous fluid collection in the endometrial cavity with a mean diameter of 24.0 mm. This may represent a gestational sac with an EGA of 7 weeks 3 days. No definite embryo or yolk sac identified within this structure. UTERUS: Normal size and contour measuring 8.7 x 4.2 x 4.6 cm. No fibroid detected. CERVIX: Normal size and contour. RIGHT OVARY: Normal size and appearance measuring 2.5 x 1.4 x 1.8 cm (volume 3.2 mL). Normal follicles. Normal blood flow. No adnexal mass. LEFT OVARY: Mildly prominent measuring 3.8 x 2.6 x 2.5 cm (volume 13.2 mL). Two thick- walled cystic structures within the left ovary measuring 1.8 x 1.4 x 2.0 cm and 1.9 x 1.6 x 2.1 cm. Normal follicles also present. Normal blood flow. No adnexal mass. FREE FLUID: No free fluid. US/Transvaginal w/Preg US IMPRESSION: 1. Complex fluid collection in the endometrial cavity, possibly a blood-contai kiara gestational sac. No definite embryo or yolk sac seen within this structure. 2. No extrauterine detected, however an unidentified ectopic pregnan cy is not excluded. Beta HCG correlation is recommended. 3. Two complex left ovarian cysts, likely representing corpus lutea. Reading Location: [id number]
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
[2025-04-21] MEDS: 0.9% Normal Saline (1000mL) 1,000 ML 999 ML IV (15:12)
[2025-04-21 15:23] LABS: Hematocrit 36.1 % (37-47); Hemoglobin 12.1 g/dL (12.0-15.0); Immature Granulocytes Count 0.020 X10^3/uL (0.0-0.0); Mean Corp Hgb Conc 33.5 g/dL (32-36); Mean Corpuscular Volume 91.6 fL (81-99); Mean Platelet Vol. 10.6 fl (6.2-12.0); NRBC Flagged by Analyzer 0 % (0-5); Platelet Count 235 K/mm3 (150-450); RBC Distribution Width CV 12.2 % (11.6-14.6); RBC Distribution Width SD 41.3 fl (35.1-43.9); Red Blood Count 3.94 M/mm3 (4.2-5.4); White Blood Count 10.4 K/mm3 (4.4-11.0)
[2025-04-21 15:29] LABS: Internal QC Validated? YES +Cl - CLEAR BKGD
[2025-04-21 15:31] LABS: Pregnancy, Urine Positive Negative
[2025-04-21 15:48] LABS: AST(SGOT) 17 U/L (<=31); Alanine Aminotransfer ALT/SGPT 10 U/L (<=34); Albumin, Serum 4.2 g/dL (3.5-5.0); Alkaline Phosphatase 56 U/L (35-104); Anion Gap 8 (5-15); BUN 7 mg/dL (4-19); BUN/Creat Ratio 7.8 RATIO (10-20); Calcium,Total 9.3 mg/dL (7.6-11.0); Carbon Dioxide 24.2 mmol/L (21.0-32.0); Chloride 106 mmol/L (98-108); Estimated Creatinine Clearance 89.55 ml/min (50-250); Globulin 2.2 g/dL (2.2-4.2); Glucose 102 mg/dL (70-99); Potassium 3.8 mmol/L (3.3-5.1)
[2025-04-21 16:00] VITALS: BP 110/87; PULSE 77; RESP 16; O2SAT 98
[2025-04-21 17:08] LABS: hCG Titer Quant., Serum 1762 mIU/mL (<9 non-preg)
[2025-04-21 17:31] VITALS: BP 110/87; PULSE 77; RESP 16; TEMP 36.8; O2SAT 98
== END 2025-04-21 17:42 | disposition home or self-care (01) ==
PROVIDERS: Emergency Provider Emergency Medicine; Visit Provider Emergency Medicine
DX: O99.891 Other specified diseases and conditions complicating pregnancy (principal); O99.331 Smoking (tobacco) complicating pregnancy, first trimester; R10.9 Unspecified abdominal pain; F17.290 Nicotine dependence, other tobacco product, uncomplicated; Z3A.00 Weeks of gestation of pregnancy not specified
CPT/HCPCS: 76817; 80053; 81025; 84702; 85025; 96360; 99283; A4216

== ENCOUNTER 2025-04-22 02:45 | Emergency (ER) | payer MEDICAID, SELFPAY ==
[2025-04-22 02:45] VITALS: BP 141/86; PULSE 93; RESP 18; TEMP 36.6; O2SAT 99; BMI 25.8
--- NOTE | 2025-04-22 03:02 | EX.ED.DYSGE1 ---
HPI History of Present Illness Chief Complaint: Abd Pain Narrative Narrative: Patient was seen and examined after presenting to ED for abdominal cramping and pain states that she believes she is around 6 weeks she was just here yesterday was having abdominal cramping and bleeding had an ultrasound that showed a gestational sac but does bloody her quantitative hCG was only around 1700 states that she is coming here because "the bleeding is not bad I am hardly bleeding but nobody told me how painful this would be." She she states that she was told that she was miscarrying. She is G3, P2. PFSH PFSH Medical History HPV (human papilloma virus) infection Injury of head and neck Asthma Anxiety Depression GERD (gastroesophageal reflux disease) Smoker Diverticulitis Chlamydia infection affecting Nicotine use Marijuana use Migraines Asthma ADHD Depression with anxiety Home Medications Medication Instructions Recorded Last Taken Type lw-hmf-yjblk 180 mcg-om3 32.5 1 tab PO DAILY 04/21/25 04/21/25 History cm-zmc-gni-other qf2y-jqfi chew tablet ( Gummies (DHA-EPA)) Allergy/AdvReac Type Severity Reaction Status Date / Time No Known Allergies Allergy Verified 04/22/25 02:46 Family History Father Hypertrophic cardiomyopathy Grandfather Hypertrophic cardiomyopathy Surgical History H/O partial resection of colon History of appendectomy History of tonsillectomy Social History housing: house Smoking Status: Current some day smoker tobacco type: e-cigarettes alcohol intake: current ROS ROS ED ROS Narrative Pertinent Positives: Lower abdominal cramping with possible miscarriage small amount of vaginal bleeding Pertinent Negatives: Fevers chills vomiting The remainder of review of systems negative unless otherwise stated in the HPI above. Systems reviewed including constitutional, psychiatric, cardiovascular, respiratory, integument, HENT, gastrointestinal. EXAM Physical Exam Narrative Exam Narrative: Patient is afebrile hemodynamically stable does not appear toxic or in distress she is normocephalic and atraumatic cranial nerves II through XII grossly intact. Her abdomen is soft nondistended very mild lower abdominal pain on palpation Const Vital Signs: 04/22/25 02:45 Temperature 98 F Temperature Source Oral Pulse Rate 93 Respiratory Rate 18 Blood Pressure 141/86 H Blood Pressure Mean 104 Pulse Ox 99 Oxygen Delivery Method Room Air MDM MDM MDM Narrative Medical decision making narrative: Nursing notes, triage notes, available previous documentation, and vital signs were reviewed. Any discrepancies noted were addressed. Differential Diagnoses: Possible this could be a miscarriage or just early bleeding in early low suspicion for appendicitis or cholecystitis she does have a history of diverticular disease Interventions: Reglan morphine Labs Reviewed: Patient does have slight leukocytosis of 13 with it likely being reactive her hemoglobin is 11.9 so it is stable compared to her earlier yesterday her quantitative hCG however went from 1762 to 1399 making it more likely that this is a spontaneous Previous Documentation Reviewed: Emergency department visit from 04/21/2025 stating that she needs to follow-up with her OB team on Friday to get a repeat quantitative hCG that she could potentially have a threatened miscarriage ED Course: Patient presenting with worsening abdominal cramping no significant vaginal bleeding per her statement states that she has some but not much. 0405: Patient appears to be doing well overall despite the situation however I did inform her that her quantitative hCG number was downtrending making it more likely that she is having a spontaneous and that they would want to follow this to 0 she has that appointment with her SOCIAL SERVICE DIRECTOR on Friday and she can get follow-up hCG levels then as described before. Return precautions follow-up recommendations provided patient is stable for discharge home This note was made utilizing voice recognition software. All attempts were made to correct spelling or other errors prior to note completion. However, due to the fast-paced nature of emergency medicine, some errors may still be present. Lab Data Labs: Laboratory Results - last 24 hr 04/22/25 03:00 WBC 13.0 H RBC 3.90 L Hgb 11.9 L Hct 35.6 L MCV 91.3 MCH 30.5 MCHC 33.4 RDW Std Deviation 41.0 RDW Coeff of Melchor 12.3 Plt Count 252 MPV 10.7 Immature Gran % (Auto) 0.300 Neut % (Auto) 52.6 Lymph % (Auto) 33.8 [place] % (Auto) 6.6 Eos % (Auto) 6.2 H Baso % (Auto) 0.5 Absolute Neuts (auto) 6.8 Absolute Lymphs (auto) 4.38 Nucleated RBC % 0 HCG, Quant 1399 H Discharge Plan Triage Chief Complaint: Abd Pain ED Provider: Gladys Webb Dx/Rx/DC Orders Clinical Impression: Abdominal cramping affecting , Vaginal bleeding affecting early , , spontaneous threatened Instructions: Miscarriage Threatened Prescriptions: No Action Gummies (DHA-EPA) 180 mcg-32.5mg- 25 mg-7.5 mg tablet,chewable 1 tab PO DAILY Primary Care Provider: Care Physician,No Primary Referrals: Care Physician,No Primary [Primary Care Provider, Medical] Activity Restrictions/Additional Instructions: Keep that appointment with your SOCIAL SERVICE DIRECTOR to get that repeat blood work to make sure that your numbers downtrending further if you are having worsening pain or worsening bleeding do not hesitate to return I still recommend taking 1000 mg of Tylenol 3-4 times a day for your symptoms Print Language: Georgian Disposition Disposition: Home, Self Care
[2025-04-22 03:07] LABS: Hematocrit 35.6 % (37-47); Hemoglobin 11.9 g/dL (12.0-15.0); Immature Granulocytes Count 0.040 X10^3/uL (0.0-0.0); Mean Corp Hgb Conc 33.4 g/dL (32-36); Mean Corpuscular Volume 91.3 fL (81-99); Mean Platelet Vol. 10.7 fl (6.2-12.0); NRBC Flagged by Analyzer 0 % (0-5); Platelet Count 252 K/mm3 (150-450); RBC Distribution Width CV 12.3 % (11.6-14.6); RBC Distribution Width SD 41.0 fl (35.1-43.9); Red Blood Count 3.90 M/mm3 (4.2-5.4); White Blood Count 13.0 K/mm3 (4.4-11.0)
[2025-04-22 03:53] LABS: hCG Titer Quant., Serum 1399 mIU/mL (<9 non-preg)
[2025-04-22 04:08] VITALS: BP 129/75; PULSE 88; RESP 16; TEMP 36.7; O2SAT 99
== END 2025-04-22 04:12 | disposition home or self-care (01) ==
PROVIDERS: Emergency Provider Specialist/Technologist Athletic Trainer; Visit Provider Specialist/Technologist Athletic Trainer
DX: O03.9 Complete or unspecified spontaneous abortion without complication (principal); F17.290 Nicotine dependence, other tobacco product, uncomplicated
CPT/HCPCS: 84702; 85025; 96374; 96375; 99285; A4216

== ENCOUNTER 2025-05-20 11:48 | Emergency (ER) | payer MEDICAID, SELFPAY ==
[2025-05-20 11:49] VITALS: BP 134/94; PULSE 103; RESP 16; TEMP 36.5; O2SAT 100; BMI 25.3
--- NOTE | 2025-05-20 12:45 | US_ITS ---
PROCEDURE: TRANSVAGINAL W/PREG US 05/20/2025 REASON FOR EXAM: PELVIC PAIN, RECENT MC, EVAL RETAINED POC. HCG 7564. Miscarriage in April. TECHNIQUE: Procedure Code: USTVAGP Modality: US Procedure: TRANSVAGINAL W/PREG US COMPARISON: 04/21/2025 FINDINGS ENDOMETRIUM: Endometrial stripe is 2.0 mm in thickness. Mild endometrial cavity fluid and a small cystic focus at the fundus with a mean diameter of 3.0 mm. No embryo or yolk sac identified. No abnormal endometrial color Doppler flow. UTERUS: Normal size and contour measuring 8.2 x 4.8 x 3.2 cm. No myometrial lesion seen. Small heterogeneous structure (1.2 x 1.0 x 0.9 cm) with a stalk is seen between the posterior uterus and left ovary. CERVIX: Normal size and contour. Small nabothian cysts. RIGHT OVARY: Normal size and appearance measuring 2.8 x 1.7 x 1.7 cm (volume 4.4 mL). Normal follicles. Normal blood flow. No adnexal mass. LEFT OVARY: Enlarged measuring 4.0 x 2.5 x 3.2 cm (volume 16.7 mL), containing a nonvascular 3.0 x 2.1 x 2.3 cm cystic structure with internal stranding. Normal ovarian blood flow. Adjacent to the left ovary, there is a 2.2 x 2.2 x 2.9 cm heterogeneous hypervascular left adnexal mass. FREE FLUID: Mild free fluid. US/Transvaginal w/Preg US IMPRESSION: 1. No definite intrauterine identified. Small endometrial cystic foc us with no embryo or yolk sac. Given HCG level and left adnexal mass, this could represent a pseudogestational sac of ectopic . 2. Left adnexal hypervascular mass is highly concerning for ectopic , particularly given current hCG (7,564). No evidence of rupture. The above findings were discussed with Dr. Sharma on 05/20/2025 at 1:05 p.m. [facility] standard time. 3. Complex 3.0 cm left ovarian cyst, likely a hemorrhagic cyst. O-RADS US 2 - Almost certainly benign category (<1% risk of malignancy). No follow-up recommended. 4. Small pedunculated structure between the posterior uterus and left ovary, m ay represent a pedunculated uterine fibroid. Reading Location: [id number]
--- NOTE | 2025-05-20 12:47 | EDS_ITS ---
HPI HPI - Female History of Present Illness Chief Complaint: Informant: patient Narrative Narrative: Patient is a 25-year-old female presenting with concerns of possible persistent following a recent miscarriage. - Reports a miscarriage approximately one month ago, with bleeding ceasing 2-3 weeks ago. - Attempted sexual intercourse post-miscarriage, but it was too painful to complete. - Recently, has been unable to consume anything without emesis within 30 minutes. - Noticed significant breast enlargement and tenderness. - Took 2 home tests, both showing bright positive results. - Experiencing uterine discomfort when sitting down abruptly or on hard surfaces. - Reports severe back pain, burning stomach sensation, and subsequent emesis after drinking. - Denies current vaginal bleeding but notes excessive vaginal discharge. - Last regular menstrual period was in January. - Has had two previous healthy pregnancies; this was her third ; A1 PFSH PFSH Medical History HPV (human papilloma virus) infection Injury of head and neck Asthma Anxiety Depression GERD (gastroesophageal reflux disease) Smoker Diverticulitis Chlamydia infection affecting Nicotine use Marijuana use Migraines Asthma ADHD Depression with anxiety Home Medications ?Medication ?Instructions ?Recorded ?Last Taken ?Type td-tsx-wccmf 180 mcg-om3 32.5 1 tab PO DAILY 04/21/25 04/21/25 History ch-qwg-dny-other ef8i-sqgb chew tablet ( Gummies (DHA-EPA)) Allergy/AdvReac Type Severity Reaction Status Date / Time No Known Allergies Allergy Verified 05/20/25 11:52 Family History Father Hypertrophic cardiomyopathy Grandfather Hypertrophic cardiomyopathy Surgical History H/O partial resection of colon History of appendectomy History of tonsillectomy Social History housing: house Smoking Status: Current some day smoker tobacco type: e-cigarettes alcohol intake: current ROS ROS ED Constitutional Constitutional ED: Denies chills or fever(s) Eyes Eyes: Denies change in vision or diplopia ENT ENT ED: Denies rhinorrhea or sore throat Cardiovascular Cardiovascular: Denies chest pain or palpitations Respiratory/Chest Respiratory/Chest: Denies cough or dyspnea Gastrointestinal Gastrointestinal: Reports abdominal pain, nausea and vomiting; Denies diarrhea Genitourinary Genitourinary ED: Denies dysuria or hematuria Musculoskeletal Musculoskeletal: Denies back pain or neck pain Integumentary Denies abscess or rash Neurologic Neurologic: Denies headache(s), paresthesias or weakness Psychiatric Psychiatric: Denies suicidal thoughts EXAM Physical Exam Const Vital Signs: 05/20/25 11:49 05/20/25 14:00 Temperature 97.7 F L Temperature Source Oral Pulse Rate 103 H 77 Respiratory Rate 16 18 Blood Pressure 134/94 H 129/83 H Blood Pressure Mean 107 98 Pulse Ox 100 100 Oxygen Delivery Method Room Air Room Air Positive well nourished and well developed General Appearance ED: well developed and NAD HEENT Reports moist mucous membranes normocephalic and atraumatic Eyes PERRL and EOMs intact bilaterally Neck full ROM and supple Resp normal respiratory effort and clear to auscultation bilaterally Cardio regular rate, regular rhythm and no murmurs GI non-tender and non-distended Auscultation: normoactive bowel sounds Palpation: soft Back/Spine no CVA tenderness General Back: other FROM Extremity normal to inspection General Extremety ED: Negative for edema, pulses abnormal or tenderness General Extremity: Negative for edema or pulses abnormal Neuro oriented x3, CN's II-XII intact bilaterally and no sensory deficits noted Sensorium / Orientation: awake and alert Motor Exam: strength 5/5 throughout Psych Mood & Affect: anxious Skin no rashes or lesions noted and no wounds MDM MDM MDM Narrative Medical decision making narrative: Assessment: The patient is a 25-year-old female presenting for evaluation of possible ongoing after a miscarriage one month ago. She reports new breast tenderness, persistent positive home tests, episodic pelvic pain more pronounced on the left, nausea, and vomiting. Urine HCG was positive; quantitative HCG resulted at 7,564. Pelvic ultrasound demonstrated a left-sided adnexal mass suspicious for ectopic adjacent to the ovary. Taken together, elevated HCG without an intrauterine gestational sac and sonographic left adnexal mass make ectopic the most likely diagnosis. Unclear if this is a heterotopic with miscarriage of the intrauterine portion, or if this is a second unrelated to the miscarriage she had a month ago. Plan: - Obtained urine qualitative HCG, quantitative serum HCG, urinalysis, and pelvic ultrasound. - Sent urine for culture due to UA infection markers. - Discussed abnormal ultrasound and ectopic concern with radiology; immediate return to ED recommended. - Patient eloped against medical advice (staff discussed w/ pt as physician unavailable) prior to MD counseling and treatment; phone attempts in progress to have her return to the ER emergently. Diagnostics: - Urine qualitative HCG ? positive. - Quantitative serum HCG 7,564 mIU/mL. - Pelvic ultrasound: left adnexal complex mass concerning for ectopic adjacent to ovary; no intrauterine gestation visualized. No free fluid to suggest acute rupture. - Urinalysis: findings consistent with infection; given no urinary symptoms acutely, sent for culture Portions of this note were generated using voice recognition software ([email or web address]). I have reviewed the contents and every effort has been made to ensure accuracy; however, inadvertent errors in grammar, spelling, punctuation, or word choice may occur, that were not noted before signing the document and should not alter the intended clinical meaning. History & Record Review Additional record(s) reviewed:: Prior labs (blood type A+) Lab Data Attestation: I reviewed the patient's lab results. Labs: Laboratory Results - last 24 hr 05/20/25 12:41 HCG, Quant 7564 H Urine Color Yellow Urine Clarity Sl. Cloudy Urine pH 7.0 Ur Specific [place] 1.010 Urine Protein 15 H Urine Glucose (UA) Normal Urine Ketones Negative Urine Occult Blood 25 H Urine Nitrite Negative Urine Bilirubin Negative Urine Urobilinogen Normal Ur Leukocyte Esterase 500 H Urine RBC 0 SEEN Urine WBC 10-25 SEEN Ur Squamous Epith Cells 5-10 SEEN Amorphous Sediment 1+ Urine Bacteria 2+ Urine Mucus 0 SEEN Urine Test Positive H Radiography Diagnostic Testing: Clinical Impression(s) from Imaging Studies Obstetrics Ultrasound 05/20/25 12:45 IMPRESSION: 1. No definite intrauterine identified. Small endometrial cystic focus with no embryo or yolk sac. Given HCG level and left adnexal mass, this could represent a pseudogestational sac of ectopic . 2. Left adnexal hypervascular mass is highly concerning for ectopic , particularly given current hCG (7,564). No evidence of rupture. The above findings were discussed with Dr. Sharma on 05/20/2025 at 1:05 p.m. [place] standard time. 3. Complex 3.0 cm left ovarian cyst, likely a hemorrhagic cyst. O-RADS US 2 - Almost certainly benign category (<1% risk of malignancy). No follow-up recommended. 4. Small pedunculated structure between the posterior uterus and left ovary, may represent a pedunculated uterine fibroid. Reading Location: [facility] Management Discussion w/another healthcare provider: Radiologist Discharge Plan Triage Chief Complaint: ED Provider: Mono Sharma Dx/Rx/DC Orders Clinical Impression: Ectopic of left ovary, Pelvic pain affecting in first trimester, antepartum Prescriptions: No Action Gummies (DHA-EPA) 180 mcg-32.5mg- 25 mg-7.5 mg tablet,chewable 1 tab PO DAILY Primary Care Provider: Care Physician,No Primary Referrals: Care Physician,No Primary [Primary Care Provider, Medical] Print Language: Bulgarian Disposition Disposition: Elopement Discharge Date/Time: 05/20/25 15:14
[2025-05-20 12:54] LABS: Mucous, Urine 0 SEEN /hpf (<or=2+); Red Blood Cells-Urine 0 SEEN /hpf (0-5)
[2025-05-20 13:03] LABS: Color, Urine Yellow (Yellow); Glucose, Dipstick Normal (Normal); Ketone-Dipstick Negative (Negative); Leukocyte Esterase-Dipstick 500 /ul (Negative); Nitrite-Dipstick Negative (Negative); Occult Blood-Urine 25 /ul (Negative); Protein-Dipstick 15 mg/dl (Negative); Specific Gravity, Urine 1.010 (1.002-1.030); Urine Bilirubin Dipstick Negative (Negative)
[2025-05-20] MEDS: 0.9% Normal Saline (500mL Bag) 500 ML 999 ML IV (13:05)
[2025-05-20 13:11] LABS: Squamous Epithelial Cells - UA 5-10 SEEN /hpf (5-10)
[2025-05-20 13:13] LABS: Internal QC Validated? YES +Cl - CLEAR BKGD
[2025-05-20 13:14] LABS: Pregnancy, Urine Positive Negative
--- NOTE | 2025-05-20 13:16 | ED.RN ---
CALL FROM LAB , POSITIVE URINE , DR. ALVAREZ MADE AWARE
[2025-05-20 13:37] LABS: hCG Titer Quant., Serum 7564 mIU/mL (<9 non-preg)
[2025-05-20 14:00] VITALS: BP 129/83; PULSE 77; RESP 18; O2SAT 100
== END 2025-05-20 15:14 | disposition left against medical advice (07) ==
LOC: ED 12:46
PROVIDERS: Emergency Provider Emergency Medicine; Visit Provider Emergency Medicine
DX: O00.202 Left ovarian pregnancy without intrauterine pregnancy (principal); O26.891 Other specified pregnancy related conditions, first trimester; R10.22 Pelvic and perineal pain left side; O99.331 Smoking (tobacco) complicating pregnancy, first trimester; F17.290 Nicotine dependence, other tobacco product, uncomplicated
CPT/HCPCS: 76817; 81001; 81025; 84702; 87086; 99283; A4216; J2405

== ENCOUNTER 2025-05-20 17:29 | Day surgery (SDC) | payer MEDICAID, SELFPAY ==
[2025-05-20] VITALS (13 sets, daily range): BP systolic 122–143; BP diastolic 60–89; PULSE 61–118; RESP 14–18; TEMP 36.1–37.2; O2SAT 97–100; BMI 24.0
--- NOTE | 2025-05-20 17:49 | EX.ED.DYSGE1 ---
HPI History of Present Illness Chief Complaint: Abd Pain Informant: patient Onset/Context/Timing Onset: Today Context: Gradual Onset Timing: Continuous Quality: Pressure Location: Suprapubic area Worsened by: Sitting, laying on her left side Relieved by: Nothing Narrative Narrative: Patient presents with pelvic pain that began today. Patient states it came on gradually. Patient describes it as pressure. Patient states it is over the suprapubic area. Patient states it is worse with sitting and with lying on her left side. Patient states nothing makes it better. Patient states she had a positive home test. Patient was seen here earlier this morning and had lab work and ultrasound which showed an ectopic . Patient left prior to receiving these results. Patient was contacted. Patient was told to come back to the emergency department. Patient states she did have something to eat and drink within the last hour. [facility] Medical History HPV (human papilloma virus) infection Injury of head and neck Asthma Anxiety Depression GERD (gastroesophageal reflux disease) Smoker Diverticulitis Chlamydia infection affecting Nicotine use Marijuana use Migraines Asthma ADHD Depression with anxiety Home Medications ?Medication ?Instructions ?Recorded ?Last Taken ?Type ix-urk-nejxu 180 mcg-om3 32.5 2 tab PO DAILY 04/21/25 04/21/25 History pk-fnb-nil-other mn5t-ejzy chew tablet ( Gummies (DHA-EPA)) acetaminophen 500 mg tablet 1,000 mg (2 x 500 mg) PO Q6H PRN 05/20/25 Unknown Rx (Acetaminophen Extra Strength) fever or pain 30 days #60 tabs ibuprofen 600 mg tablet 600 mg PO Q6H PRN Pain 30 days #60 05/20/25 Unknown Rx TABLETS oxycodone 5 mg tablet 5 mg PO Q6H PRN PRN severe pain 7 05/20/25 Unknown Rx days #6 TABLETS Allergy/AdvReac Type Severity Reaction Status Date / Time No Known Allergies Allergy Verified 05/20/25 17:29 Family History Father Hypertrophic cardiomyopathy Grandfather Hypertrophic cardiomyopathy Surgical History History of laparoscopy H/O partial resection of colon History of appendectomy History of tonsillectomy Social History housing: house Smoking Status: Current some day smoker tobacco type: e-cigarettes alcohol intake: current substance use type: marijuana ROS ROS ED Constitutional Constitutional ED: Denies chills or fever(s) Eyes Eyes: Denies blurry vision or change in vision ENT ENT ED: Reports rhinorrhea; Denies sore throat Cardiovascular Cardiovascular: Denies chest pain or palpitations Respiratory/Chest Respiratory/Chest: Reports cough; Denies dyspnea Gastrointestinal Gastrointestinal: Reports nausea; Denies vomiting Genitourinary Genitourinary ED: Denies dysuria or hematuria Musculoskeletal Musculoskeletal: Denies back pain or neck pain Integumentary Denies abscess or rash Neurologic Neurologic: Denies headache(s) or weakness Allergic/Immunologic Allergic/Immunologic ED: Reports urticaria; Denies mouth swelling EXAM Physical Exam Const Vital Signs: 05/20/25 17:29 05/20/25 18:38 05/20/25 19:24 Temperature 99 F 97.8 F 97.8 F Temperature Source Oral Oral Pulse Rate 118 H 87 87 Respiratory Rate 18 16 16 Blood Pressure 134/87 H 128/89 H 128/89 H Blood Pressure Mean 102 102 102 Blood Pressure Source Monitor Blood Pressure Position Semi-Fowlers Blood Pressure Location Left Arm Pulse Ox 98 99 99 Oxygen Delivery Method Room Air Room Air 05/20/25 19:46 Temperature 97.8 F Temperature Source Pulse Rate 87 Respiratory Rate 16 Blood Pressure 128/89 H Blood Pressure Mean Blood Pressure Source Blood Pressure Position Blood Pressure Location Pulse Ox 99 Oxygen Delivery Method Positive well nourished and well developed General Appearance ED: well developed and NAD HEENT Reports moist mucous membranes Neck supple and no JVD Resp normal respiratory effort and clear to auscultation bilaterally Cardio regular rate and regular rhythm GI non-distended Palpation: soft and tender suprapubic; Negative for guarding or rebound tenderness present Neuro oriented x3, CN's II-XII intact bilaterally and no sensory deficits noted Sensorium / Orientation: alert Motor Exam: strength 5/5 throughout Psych mental status grossly normal MDM MDM MDM Narrative Medical decision making narrative: Patient has an ectopic . Case was discussed with Dr. Jacinto. She will be in to evaluate the patient. Patient understood and was agreeable with the plan. All questions were answered. History & Record Review Additional record(s) reviewed:: Prior ED visit Lab Data Attestation: I reviewed the patient's lab results. Lab results narrative: CBC was reviewed. There is a mild leukocytosis of 11.3. The remainder is within normal limits. Labs: Laboratory Results - last 24 hr 05/20/25 17:58 WBC 11.3 H RBC 4.01 L Hgb 12.3 Hct 36.7 L MCV 91.5 MCH 30.7 MCHC 33.5 RDW Std Deviation 42.3 RDW Coeff of Melchor 12.6 Plt Count 240 MPV 11.2 Immature Gran % (Auto) 0.400 Neut % (Auto) 59.3 Lymph % (Auto) 31.2 [place] % (Auto) 4.2 Eos % (Auto) 4.4 Baso % (Auto) 0.5 Absolute Neuts (auto) 6.7 Absolute Lymphs (auto) 3.53 Nucleated RBC % 0 Discharge Plan Dx/Rx/DC Orders Clinical Impression: Ectopic of left ovary, Current every day nicotine vaping Disposition Disposition: Acute Care Hospital [facility]
--- OUTSIDE RECORDS SUMMARY | 2025-05-20 18:18 | XMS RPT_ITS | CCD ---
Demographics Address [address] [facility] [address] [place] [address] Preferred Language en Marital Status Single Zoroastrianism Affiliation Unknown Race White History of macrosomia in infant in prior , currently in third trimester Procedures OBSTETRIC ULTRASOUND WHI US PREG UTERUS AFTER 1ST TRIMEST GESTATION Yusra Mora MD [address] [place] [address] [facility] [address] [place] [address] Referral ID Status Reason Start Date Expiration Date Visits Requested Visits Authorized [id number] Authorized Auto-Generat ed Referral 10/11/2021 10/11/2022 1 1 [facility] for referral (narrative)* Outpatient Procedure (Routine) - Pending Review Specialty Diagnoses / Procedures Referred By Carolina colmenares Referred To Contact [facility] Diagnoses Insertion of implantable subdermal contraceptive Procedures NEXPLANON INSERTION ETONOGESTREL IMPLANT SYSTEM INSERT DRUG IMPLANT DEVICE Janelle Fang APRN.CNP [address] [place] [address] [facility] [address] [place] [address] Referral ID Status Reason Start Date Expiration Date Visits Requested Visits Authorized [id number] Pending Review Auto-Generat ed Referral 01/01/2022 01/01/2023 1 1 [facility] for referral (narrative)* Diagnostic Procedure Only (Urgent) - Closed Specialty Diagnoses / Procedures Referred By Contac t Referred To Contact XR IMAGING Diagnoses Rib pain on right side Procedures XR RIBS/CHEST 3V AP RIB/OBLS/CXR RIGHT RADEX RIBS UNI W/POSTEROANT CH MINIMUM 3 VIEWS Haider Pereyra MD [address] [place] [address] [place] [address] Referral ID Status Reason Start Date Expiration Date V isits Requested Visits Authorized [id number] Closed Auto-Generate d Referral 03/03/2023 04/01/2024 1 1 [facility] for referral (narrative)* Diagnostic Procedure Only (Urgent) - Closed Specialty Diagnoses / Procedures [facility] To Contact XR IM[facility]ING Diagnoses Rib pain on right side Procedures XR RIBS/CHEST 3V AP RIB/OBLS/CXR RIGHT RADEX RIBS UNI W/POSTEROANT CH MINIMUM 3 VIEWS Haider Pereyra MD [address] [place] [address] [place] [address] Referral ID Status Reason Start Date Expiration Date V isits Requested Visits Authorized [id number] Closed Auto-Generate d Referral 03/03/2023 04/01/2024 1 1 [facility] for referral (narrative)* Outpatient Procedure (Routine) - New Request Specialty Diagnoses / Procedures Referred By Contac t Referred To Contact [facility] Diagnoses Nexplanon removal Procedures NEXPLANON REMOVAL REMOVAL NON-BIODEGRADABLE DRUG DELIVERY IMPLANT Viky Stubbs APRN.CNCecilia [address] [address] [facility] [address] [place] [address] Referral ID Status Reason Start Date Expiration Date Visits Requested Visits Authorized [id number] New Request Auto-Generat ed Referral 04/30/2025 1 1 [facility] for referral (narrative)No reason for referral information availableWLutheran [facility] Work Phone: Reason for visit Narrative* Diagnostic Procedure Only (Urgent) - Closed Specialty Diagnoses / Procedures Referred By Contac t Referred To Contact XR IMAGING Diagnoses Rib pain on right side Procedures XR RIBS/CHEST 3V AP RIB/OBLS/CXR RIGHT RADEX RIBS UNI W/POSTEROANT CH MINIMUM 3 VIEWS Haider Pereyra MD [address] [place] [address] [place] [address] Referral ID Status Reason Start Date Expiration Date V isits Requested Visits Authorized [id number] Closed Auto-Generate d Referral 03/03/2023 04/01/2024 1 1 [facility] for visit Narrative* Diagnostic Procedure Only (Urgent) - Closed Specialty Diagnoses / Procedures Referred By Contac t Referred To Contact XR IMAGING Diagnoses Pain of toe of left foot Procedures XR TOE AP/LAT/OBL LEFT RADEX TOE MINIMUM 2 VIEWS James Lentz PA [address] [place] [address] Phone: tel: fax: [place] [address] Referral ID Status Reason Start Date Expiration Date V isits Requested Visits Authorized [id number] Closed Auto-Generate d Referral 01/26/2025 02/25/2026 1 1 [facility] Summary Purpose Family History No Family History Records Found Relationship Condition Age at Onset Recorded Date/T cecilia father Hypertrophic cardiomyopathy Unknown grandfather Hypertrophic cardiomyopathy Unknown Advance Directives No Advanced Directives Records Found Advance Directive Response Recorded Date/ Time Living Will No April 07 11:55am Power of Salt Maker No April 07, 2021 11:55am Documents on File Type Date Recorded 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 Advance Directive(s) Documents on File Type Date Recorded 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 Advance Directive(s) Advance Directive Response Recorded Date/ Time Living Will No November 18, 2021 2:39pm Power of Salt Maker No November 18 2:39pm Advance Directive Response Recorded Date/ Time Living Will No October 11, 2022 9: 38pm Power of Salt Maker No October 11, 2022 9:38pm Advance Directive Response Recorded Date/ Time Living Will No October 12, 2022 12 :38am Power of Salt Maker No October 12, 2022 12:38am Advance Directive Response Recorded Date/ Time Living Will No February 09 5:00pm Power of Salt Maker No February 09, 2023 5:00pm Advance Directive Response Recorded Date/ Time Living Will No June 27 7:35pm Power of Salt Maker No June 27, 2023 7:35pm Advance Directive Response Recorded Date/ Time Living Will No October 15, 2023 7: 44am Power of Salt Maker No October 15, 2023 7:44am Advance Directive Response Recorded Date/ Time Living Will No September 14, 2024 12:14pm Do you have a Healthcare Power of Salt Maker? No September 14, 2024 12:14pm Living Will No June 25 5:32am Do you have a Healthcare Power of Salt Maker? No June 25, 2024 5:32am Advance Directive Response Recorded Date/ Time Living Will No September 14, 2024 12:14pm Do you have a Healthcare Power of Salt Maker? No September 14, 2024 12:14pm Do you have a Healthcare Power of Salt Maker? No October 30, 2024 8:29am Do you have a Healthcare Power of Salt Maker? No January 01, 2025 9:24am Advance Directive Response Recorded Date/ Time Do you have a Healthcare Power of Salt Maker? No January 15, 2025 10:19pm Do you have a Healthcare Power of Salt Maker? No October 30, 2024 8:29am Do you have a Healthcare Power of Salt Maker? No January 01, 2025 9:24am Chief Complaint [...] Sore Throat January 01, 2025 9:19 am Chief Complaint Admit Date abd pain October 30, 2024 8:18a m Sore Throat January 01, 2025 9:19 am sore throat, wound check January 15 10:12pm Medications Administered Section Inactive Administered Medications - [...] section and content) DATE CREATED AUTHOR 11/27/2017 [facility] DATE CREATED AUTHOR AUTHOR'S ORGANIZ ATION 01/10/2021 [facility] DATE CREATED AUTHOR AUTHOR'S ORGANIZ ATION 08/28/2022 [facility] DATE CREATED AUTHOR AUTHOR'S ORGANIZ ATION 04/17/2025 [facility] DATE CREATED AUTHOR AUTHOR'S ORGANIZ ATION 04/20/2025 [facility] Goals (unrecognized section and content) Goals [...] or prosecute any alcohol or drug abuse patient.[facility] HospitalIn the event this information is protected by the Federal Confidentiality of Alcohol and Drug Abuse Patient Records regulations: The Federal rules restrict any use of the information to criminally investigate or prosecute any alcohol or drug abuse patient.[facility] HospitalIn the event this information is protected by the Federal Confidentiality of Alcohol and Drug Abuse Patient Records regulations: The Federal rules restrict any use of the information to criminally investigate or prosecute any alcohol or drug abuse patient.[facility] HospitalIn the event this information is protected by the Federal Confidentiality of Alcohol and Drug Abuse Patient Records regulations: The Federal rules restrict any use of the information to criminally investigate or prosecute any alcohol or drug abuse patient.[facility] HospitalIn the event this information is protected by the Federal Confidentiality of Alcohol and Drug Abuse Patient Records regulations: The Federal rules restrict any use of the information to criminally investigate or prosecute any alcohol or drug abuse patient.[facility] HospitalIn the event this information is protected by the Federal Confidentiality of Alcohol and Drug Abuse Patient Records regulations: The Federal rules restrict any use of the information to criminally investigate or prosecute any alcohol or drug abuse patient.[facility] HospitalIn the event this information is protected by the Federal Confidentiality of Alcohol and Drug Abuse Patient Records regulations: The Federal rules restrict any use of the information to criminally investigate or prosecute any alcohol or drug abuse patient.[facility] HospitalIn the event this information is protected by the Federal Confidentiality of Alcohol and Drug Abuse Patient Records regulations: The Federal rules restrict any use of the information to criminally investigate or prosecute any alcohol or drug abuse patient.[facility] HospitalIn the event this information is protected by the Federal Confidentiality of Alcohol and Drug Abuse Patient Records regulations: The Federal rules restrict any use of the information to criminally investigate or prosecute any alcohol or drug abuse patient.[facility] HospitalIn the event this information is protected by the Federal Confidentiality of Alcohol and Drug Abuse Patient Records regulations: The Federal rules restrict any use of the information to criminally investigate or prosecute any alcohol or drug abuse patient.[facility] HospitalIn the event this information is protected by the Federal Confidentiality of Alcohol and Drug Abuse Patient Records regulations: The Federal rules restrict any use of the information to criminally investigate or prosecute any alcohol or drug abuse patient.[facility] HospitalIn the event this information is protected by the Federal Confidentiality of Alcohol and Drug Abuse Patient Records regulations: The Federal rules restrict any use of the information to criminally investigate or prosecute any alcohol or drug abuse patient.[facility] HospitalIn the event this information is protected by the Federal Confidentiality of Alcohol and Drug Abuse Patient Records regulations: The Federal rules restrict any use of the information to criminally investigate or prosecute any alcohol or drug abuse patient.[facility] HospitalIn the event this information is protected by the Federal Confidentiality of Alcohol and Drug Abuse Patient Records regulations: The Federal rules restrict any use of the information to criminally investigate or prosecute any alcohol or drug abuse patient.[facility] HospitalIn the event this information is protected by the Federal Confidentiality of Alcohol and Drug Abuse Patient Records regulations: The Federal rules restrict any use of the information to criminally investigate or prosecute any alcohol or drug abuse patient.[facility] HospitalIn the event this information is protected by the Federal Confidentiality of Alcohol and Drug Abuse Patient Records regulations: The Federal rules restrict any use of the information to criminally investigate or prosecute any alcohol or drug abuse patient.[facility] HospitalIn the event this information is protected by the Federal Confidentiality of Alcohol and Drug Abuse Patient Records regulations: The Federal rules restrict any use of the information to criminally investigate or prosecute any alcohol or drug abuse patient.[facility] HospitalIn the event this information is protected by the Federal Confidentiality of Alcohol and Drug Abuse Patient Records regulations: The Federal rules restrict any use of the information to criminally investigate or prosecute any alcohol or drug abuse patient.[facility] HospitalIn the event this information is protected by the Federal Confidentiality of Alcohol and Drug Abuse Patient Records regulations: The Federal rules restrict any use of the information to criminally investigate or prosecute any alcohol or drug abuse patient.[facility] HospitalIn the event this information is protected by the Federal Confidentiality of Alcohol and Drug Abuse Patient Records regulations: The Federal rules restrict any use of the information to criminally investigate or prosecute any alcohol or drug abuse patient.[facility] HospitalIn the event this information is protected by the Federal Confidentiality of Alcohol and Drug Abuse Patient Records regulations: The Federal rules restrict any use of the information to criminally investigate or prosecute any alcohol or drug abuse patient.[facility] HospitalIn the event this information is protected by the Federal Confidentiality of Alcohol and Drug Abuse Patient Records regulations: The Federal rules restrict any use of the information to criminally investigate or prosecute any alcohol or drug abuse patient.[facility] HospitalIn the event this information is protected by the Federal Confidentiality of Alcohol and Drug Abuse Patient Records regulations: The Federal rules restrict any use of the information to criminally investigate or prosecute any alcohol or drug abuse patient.[facility] HospitalIn the event this information is protected by the Federal Confidentiality of Alcohol and Drug Abuse Patient Records regulations: The Federal rules restrict any use of the information to criminally investigate or prosecute any alcohol or drug abuse patient.[facility] HospitalIn the event this information is protected by the Federal Confidentiality of Alcohol and Drug Abuse Patient Records regulations: The Federal rules restrict any use of the information to criminally investigate or prosecute any alcohol or drug abuse patient.[facility] HospitalIn the event this information is protected by the Federal Confidentiality of Alcohol and Drug Abuse Patient Records regulations: The Federal rules restrict any use of the information to criminally investigate or prosecute any alcohol or drug abuse patient.[facility] HospitalIn the event this information is protected by the Federal Confidentiality of Alcohol and Drug Abuse Patient Records regulations: The Federal rules restrict any use of the information to criminally investigate or prosecute any alcohol or drug abuse patient.[facility] HospitalIn the event this information is protected by the Federal Confidentiality of Alcohol and Drug Abuse Patient Records regulations: The Federal rules restrict any use of the information to criminally investigate or prosecute any alcohol or drug abuse patient.[facility] HospitalIn the event this information is protected by the Federal Confidentiality of Alcohol and Drug Abuse Patient Records regulations: The Federal rules restrict any use of the information to criminally investigate or prosecute any alcohol or drug abuse patient.[facility] HospitalIn the event this information is protected by the Federal Confidentiality of Alcohol and Drug Abuse Patient Records regulations: The Federal rules restrict any use of the information to criminally investigate or prosecute any alcohol or drug abuse patient.[facility] HospitalIn the event this information is protected by the Federal Confidentiality of Alcohol and Drug Abuse Patient Records regulations: The Federal rules restrict any use of the information to criminally investigate or prosecute any alcohol or drug abuse patient.[facility] HospitalIn the event this information is protected by the Federal Confidentiality of Alcohol and Drug Abuse Patient Records regulations: The Federal rules restrict any use of the information to criminally investigate or prosecute any alcohol or drug abuse patient.[facility] HospitalIn the event this information is protected by the Federal Confidentiality of Alcohol and Drug Abuse Patient Records regulations: The Federal rules restrict any use of the information to criminally investigate or prosecute any alcohol or drug abuse patient.[facility] HospitalIn the event this information is protected by the Federal Confidentiality of Alcohol and Drug Abuse Patient Records regulations: The Federal rules restrict any use of the information to criminally investigate or prosecute any alcohol or drug abuse patient.[facility] HospitalIn the event this information is protected by the Federal Confidentiality of Alcohol and Drug Abuse Patient Records regulations: The Federal rules restrict any use of the information to criminally investigate or prosecute any alcohol or drug abuse patient.[facility] HospitalIn the event this information is protected by the Federal Confidentiality of Alcohol and Drug Abuse Patient Records regulations: The Federal rules restrict any use of the information to criminally investigate or prosecute any alcohol or drug abuse patient.[facility] HospitalIn the event this information is protected by the Federal Confidentiality of Alcohol and Drug Abuse Patient Records regulations: The Federal rules restrict any use of the information to criminally investigate or prosecute any alcohol or drug abuse patient.[facility] HospitalIn the event this information is protected by the Federal Confidentiality of Alcohol and Drug Abuse Patient Records regulations: The Federal rules restrict any use of the information to criminally investigate or prosecute any alcohol or drug abuse patient.[facility] HospitalIn the event this information is protected by the Federal Confidentiality of Alcohol and Drug Abuse Patient Records regulations: The Federal rules restrict any use of the information to criminally investigate or prosecute any alcohol or drug abuse patient.[facility] HospitalIn the event this information is protected by the Federal Confidentiality of Alcohol and Drug Abuse Patient Records regulations: The Federal rules restrict any use of the information to criminally investigate or prosecute any alcohol or drug abuse patient.[facility] HospitalIn the event this information is protected by the Federal Confidentiality of Alcohol and Drug Abuse Patient Records regulations: The Federal rules restrict any use of the information to criminally investigate or prosecute any alcohol or drug abuse patient.[facility] HospitalIn the event this information is protected by the Federal Confidentiality of Alcohol and Drug Abuse Patient Records regulations: The Federal rules restrict any use of the information to criminally investigate or prosecute any alcohol or drug abuse patient.[facility] HospitalIn the event this information is protected by the Federal Confidentiality of Alcohol and Drug Abuse Patient Records regulations: The Federal rules restrict any use of the information to criminally investigate or prosecute any alcohol or drug abuse patient.[facility] HospitalIn the event this information is protected by the Federal Confidentiality of Alcohol and Drug Abuse Patient Records regulations: The Federal rules restrict any use of the information to criminally investigate or prosecute any alcohol or drug abuse patient.[facility] HospitalIn the event this information is protected by the Federal Confidentiality of Alcohol and Drug Abuse Patient Records regulations: The Federal rules restrict any use of the information to criminally investigate or prosecute any alcohol or drug abuse patient.[facility] HospitalIn the event this information is protected by the Federal Confidentiality of Alcohol and Drug Abuse Patient Records regulations: The Federal rules restrict any use of the information to criminally investigate or prosecute any alcohol or drug abuse patient.[facility] HospitalIn the event this information is protected by the Federal Confidentiality of Alcohol and Drug Abuse Patient Records regulations: The Federal rules restrict any use of the information to criminally investigate or prosecute any alcohol or drug abuse patient.[facility] HospitalIn the event this information is protected by the Federal Confidentiality of Alcohol and Drug Abuse Patient Records regulations: The Federal rules restrict any use of the information to criminally investigate or prosecute any alcohol or drug abuse patient.[facility] Reason for Visit (unrecogniz ed section and content) Reason Onset Date Comments Care 09/12/2021 Reason Comments Results + STD Reason Onset Date Comments Care 09/26/2021 Reason Onset Date Comments Care 10/11/2021 Reason Comments US Specialty Diagnoses / Procedures Referred By Carolina t Referred To Contact [facility] Diagnoses 33 weeks gestation of Uterine size-date discrepancy in third trimester History of macrosomia in infant in prior , currently in third trimester Procedures OBSTETRIC ULTRASOUND WHI US PREG UTERUS AFTER 1ST TRIMEST GESTATION Yusra Mora MD [address] [place] [address] [facility] [address] [place] [address] Referral ID Status Reason Start Date Expiration Date V isits Requested Visits Authorized [id number] Closed Auto-Generate d Referral 10/11/2021 10/11/2022 1 [...] Referred By Carolina colmenares Referred To Contact [facility] Diagnoses Nexplanon insertion Encounter for surveillance of implantable subdermal contraceptive Procedures NEXPLANON INSERTION ETONOGESTREL IMPLANT SYSTEM INSERT DRUG IMPLANT DEVICE REMOVAL NON-BIODEGRADABLE DRUG DELIVERY IMPLANT Karli Jacinto MD [address] [place] [address] [facility] [address] [place] [address] Referral ID Status Reason Start Date Expiration Date Visits Requested Visits Authorized [id number] Authorized Auto-Generat ed Referral 12/19/2021 06/08/2022 2 [...] Colposcopy Specialty Diagnoses / Procedures Referred By Carolina colmenares Referred To Contact [facility] Diagnoses ASCUS with positive high risk HPV cervical Procedures COLPOSCOPY COLPOSCOPY CERVIX BX CERVIX & ENDOCRV CURRETAGE Janelle Fang, HYDRO MECHANIC.GREEN BUILDING ENERGY ENGINEER [address] [place] [address] Phone: tel: fax: [address] [address] Referral ID Status Reason Start Date Expiration Date V isits Requested Visits Authorized [id number] Closed Auto-Generate d Referral 12/28/2024 12/28/2025 1 1 Reason Comments Trauma Possible broken toe on left foot x 1 day Reason Comments Nexplanon Removal Specialty Diagnoses / Procedures Referred By Contac t Referred To Contact [facility] Diagnoses Nexplanon removal Procedures NEXPLANON REMOVAL REMOVAL NON-BIODEGRADABLE DRUG DELIVERY IMPLANT Viky StubbsIMER.[facility] [address] [place] [address] Phone: tel: fax: [facility] [place] [address] [place] [address] Referral ID Status Reason Start Date Expiration Date V isits Requested Visits Authorized [id number] Closed Auto-Generate d Referral 04/30/2024 04/30/2025 1 1 Care Teams (unrecognized sec tion and content) Premix Operator Concentrate Relationship Specialty Start Date End Date Stephane Rodríguez MD [address] [place] [address] PCP - General Pediatrics 11/21/21 11/21/21 Team [...] 30, 2024 Dr. Luis Armando Becerril , Emergency Provider Active Start: October 30, 2024 End: October 30, 2024 Team Status: Inactive Member Role/Relationship Status Dates No Primary Care Physician Primary Care Provider Active Start: January 01, 2025 End: January 01, 2025 Dr. Mona Watts , Emergency Provider Active Start: January 01, 2025 End: January 01, 2025 Team Status: Inactive Member Role/Relationship Status Dates No Primary Care Physician Primary Care Provider Active Start: October 30, 2024 End: October 30, 2024 Dr. Luis Armando Becerril , Attending Provider Active Start: October 30, 2024 End: October 30, 2024 Dr. Luis Armando Becerril DO Emergency Provider Active Start: October 30, 2024 End: October 30, 2024 Team Status: Inactive Member Role/Relationship Status Dates No Primary Care Physician Primary Care Provider Active Start: January 01, 2025 End: January 01, 2025 Dr. Mona Watts , Attending Provider Active Start: January 01, 2025 End: January 01, 2025 Dr. Mona Watts , Emergency Provider Active Start: January 01, 2025 End: January 01, 2025 Team Status: Inactive Member Role/Relationship Status Dates No Primary Care Physician Primary Care Provider Active Start: January 15, 2025 End: January 15, 2025 Dr. Jose Melara , DO Emergency Provider Active Start: January 15, 2025 End: January 15, 2025 FOR RECORDS PERTAINING TO PATIENTS WHO [...] BE BASED ON THE PRIMARY CLINICAL RECORDS. [facility]. provides no warranty or guarantee of the accuracy or completeness of information in this document.
--- NOTE | 2025-05-20 18:40 | PCM.HP.BLA ---
History and Physical Date of Admission: 05/20/25 I was asked to evaluate this patient in the emergency room for consult for possible ectopic . Findings communicated back to the electronic medical record and directly to ER staff. 25-year-old 3 para 2 female with a unknown exact last menstrual period because she had some irregular bleeding and January and February. Presented in early April with positive test. Was seen in the emergency room twice in April and was diagnosed with a likely miscarriage. She had an ultrasound that showed what was suspected to be an intrauterine , gestational sac without an embryo or yolk sac definitively noted. She had some bleeding and some pain and her hCG quantitative level initially dropped from 1762 to 1399. She continued to bleed have some pain and cramping off and on. She actually contacted my office yesterday with picture in her chart of some organized tissue that she passed. It was suspected to be the remainder of a gestational sac or uterine cast and she was scheduled for follow-up today which she did not attend because she was in the emergency room. She was in the emergency room earlier today for some pain during intercourse and a small amount of continued bleeding and she left before her final results returned. Her quantitative hCG increased significantly to over 7564 today. She denies any fevers or chills, cough, chest pain, shortness of breath. Social history: Significant for alcohol use, and she does smoke THC regularly. She denies any other substance use Allergies: She denies any allergies Surgical history: Significant for partial colectomy for diverticulitis in 2022 Reviewed patient's hCG levels, so reviewed her ultrasound findings from 04/21/2025 and today I reviewed the reports as well as the images. The images reveal a significant left adnexal mass that is complex and appears to be heterogeneous consistent with a blood and ectopic . There is not a lot of free fluid. This is markedly enlarged and different than the appearance from the ultrasound on 04/21/2025 and is consistent with ectopic Physical exam: General: Awake alert no acute distress Derm: Skin warm dry and intact Heart: S1-S2 regular rate and rhythm Resp- normal respiratory effort and chest rise Abd- soft, nondistended, scar noted, moderate tenderness LLQ, no rebound, mild voluntary guarding ext- no C-C-E Assessment & Plan Assessment/Plan (1) Hemoperitoneum due to rupture of left tubal ectopic : (2) Nexplanon insertion: (3) Encounter for counseling regarding contraception: PLAN: Plan Risk-benefit and alternatives to management options for left ectopic were discussed with the patient her questions were answered to her satisfaction she desires to proceed with laparoscopy. We reviewed that laparoscopy may be more complex because of her history of previous partial colectomy. Will attempt tubal preservation if able but consented for possible salpingectomy and/or oophorectomy as well as removal of any other necessary tissue. May need lysis of adhesions. Would accept blood products. Patient's family is present for the discussion. Their questions were answered to their satisfaction and consent was signed. I discussed with her options for contraception. Patient does not desire in the near future and would like Nexplanon placed at time of surgery.
[2025-05-20 18:42] LABS: Hematocrit 36.7 % (37-47); Hemoglobin 12.3 g/dL (12.0-15.0); Immature Granulocytes Count 0.040 X10^3/uL (0.0-0.0); Mean Corp Hgb Conc 33.5 g/dL (32-36); Mean Corpuscular Volume 91.5 fL (81-99); Mean Platelet Vol. 11.2 fl (6.2-12.0); NRBC Flagged by Analyzer 0 % (0-5); Platelet Count 240 K/mm3 (150-450); RBC Distribution Width CV 12.6 % (11.6-14.6); RBC Distribution Width SD 42.3 fl (35.1-43.9); Red Blood Count 4.01 M/mm3 (4.2-5.4); White Blood Count 11.3 K/mm3 (4.4-11.0)
--- OUTSIDE RECORDS SUMMARY | 2025-05-20 19:01 | XMS RPT_ITS | CCD ---
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 fever. HENT: Negative for congestion. Respiratory: Negative for cough. Pt states she vapes Cardiovascular: Negative for chest pain. Gastrointestinal: Positive for vomiting. Negative for abdominal pain, diarrhea and nausea. Vomit in the morning due to morning sickness Genitourinary: Negative for flank pain, pelvic pain, vaginal bleeding, vaginal discharge and vaginal pain. Musculoskeletal: Negative for back pain. Skin: Negative for color change. Objective BP 117/83 Pulse 105 Temp 36.8 ?C (98.2 ?F) Resp 18 Wt 64.3 kg (141 lb 12.1 oz) LMP 03/03/2025 (Within Days) SpO2 100% BMI 24.72 kg/m? Physical Exam Constitutional: Appearance: Normal appearance. Cardiovascular: Rate and Rhythm: Regular rhythm. Tachycardia present. Pulmonary: Effort: Pulmonary effort is normal. No respiratory distress. Breath sounds: Normal breath sounds. No stridor. No wheezing, rhonchi or rales. Abdominal: General: Bowel sounds are normal. Palpations: Abdomen is soft. Tenderness: There is no abdominal tenderness. There is no guarding or rebound. Genitourinary: Vagina: No vaginal discharge. Musculoskeletal: General: Normal range of motion. Skin: General: Skin is warm and dry. Findings: No rash. Neurological: General: No focal deficit present. Mental Status: She is alert. {ASSESSMENT/PLAN: 1. Missed menses - ICD9: 626.4, ICD10: N92.6 (primary diagnosis) - UA DIP,URINE HCG (POC) -Patient urine showed positive for -Recommended to start taking supplements -Follow up with the OBGYN 2. Cloudy urine - ICD9: 791.9, ICD10: R82.90 - UA DIP, URINE (POC) - BACTERIAL CULTURE, URINE -Prescribed antibiotic -Educated the patient on safety of the antibiotic -Recommended patient to stop vaping -Red flag and ER evaluation were discussed [facility] TEACHING PROVIDER (Physician/PA/[employer] POWER PLANT OPERATOR) NOTE OF PERSONAL INVOLVEMENT IN CARE: I have personally seen and examined the patient and performed the medical decision-making components. I have reviewed the Advanced Practice Registered Nurse ([employer] OPERATOR) Student's documentation and verified the findings in the note as written. Any additions or changes are noted in bold/italics. Signature: Jagdish Metzger Date: 04/12/2025 Time: 6:13 PM History and Record Review Clinical information obtained from an independent historian. History obtained from or confirmed by: parent. External record(s) reviewed: prior outpatient record. Disposition The patient was discharged. Procedures Allergies As of Date: 04/12/2025 Noted Allergy Reaction SEASONAL ALLERGIES 10/20/2009 5 - Intolerance Comments: Sneezing, itchy and watery eyes. Date Reviewed: 04/12/2025 Reviewed by: Lyubov Ervin MA - Fully Assessed Reason for Visit: [587] Cmt: 3 positive home tests, requesting confirmation Primary Visit Diagnosis:Missed menses [N92.6] Other Visit Diagnosis:Cloudy urine [R82.90] Order(s):UA DIP,URINE HCG (POC) [[id number]] Order #: [id number]. #:[id number] UA DIP, URINE (POC) [[id number]] Order #: [id number]. #:[id number] BACTERIAL CULTURE, URINE [SQURCUL] Order #: [id number]. #:[id number] cephALEXin (KEFLEX) 500 mg capsuleTake 1 capsule by mouth two times a day for 7 days.Disp: 14 capsuleRfl: 0 Prescriptions as of 04/12/2025 - cephALEXin (KEFLEX) 500 mg capsule Take 1 capsule by mouth two times a day for 7 days. - etonogestrel (NEXPLANON) subdermal implant 68 mg 1 Each by SUBDERMAL route as directed. Problem List As Of Date 04/12/2025 Noted Resolved Headache(784.0) [R51] 04/28/2011 04/23/2021 Unspecified asthma [J45.909] Short stature [R62.52] 08/14/2017 Dysmenorrhea [N94.6] 05/31/2013 04/23/2021 Fatigue [R53.83] (more content not included)... Normal [facility] CNOVon 01-28-2025 CNOV Office Visit (OBGYWM ) OTTONIEL OSMAN ([id number]) 2000 F Date Time Provider Department 01/28/25 3:00 PM JANELLE ENNIS During your visit today, we recorded the following information about you: Pulse Respiration Blood pressure Weight 108/minute 12/minute 124/72 60.3 kg Height 1.613 m Janelle Ennis APRN.CNP 01/28/2025 4:57 PM Signed [employer] Director offered: Patient declinesSymone Alcazar is a 24 year old Female who presents for Nexplanon removal for desires conception. UNIVERSAL PROTOCOL / SAFETY CHECKLIST Procedure to be Performed: Nexplanon Removal Sign In: A Moment of CARE was completed. Appropriate PPE (Personal Protective Equipment) worn by all providers involved with the procedure. Special equipment utilized 2 pc set. Patient/Surrogate Stated/Verified: Patient name, Date of , Relevant allergies, and The intended procedure Time Out: Relevant labs, photos, and/or imaging studies are not applicable. Intended patient and procedure match the source document(s) (e.g. consent, HANDP, associated studies [imaging, pathology]) match the intended patient and procedure. Consent obtained and matches the intended procedure. Yes. Correct side/site is not applicable. Medications required for this procedure are verified. Fire risk assessed and is not applicable. Implants: are not applicable. Sign Out: Specimens not collected. All instruments, equipment, possible retained foreign bodies are accounted for. Yes. The post-procedure plan of care has been communicated to the patient or surrogate. TECHNIQUE: Patient placed in supine position with left arm bent at the elbow and placed over the head. Skin cleansed with betadine. 1.5mL of 1% lidocaine with epi injected subQ along insertion site. Scalpel used to made a 5m stab incision superficially at distal end of Nexplanon. Device removed under sterile technique with a small hemostat. Sterile pressure dressing applied. AANDP: 24 year old Female here for Nexplanon removal Nexplanon removed intact without difficulty. The patient was instructed to remove the dressing after 24 hours. Contraceptive plans PNVFA DONALD Walker Amy, APRN.CNP 01/28/2025 3:25 PM Signed NEXPLANON (progestin implant) Removal Aftercare Instructions Things to know: Once the implant is removed you are at risk for becoming . Discuss with your provider use of another method of control. Bruising and swelling at the site are common in the first 24 hours. Keep the dressing on for 24 hours. After 24 hours, you can remove the dressing and take a shower or bath. You should use latex condoms and /or dental dams to prevent sexually transmitted infections (STIs). You may return to school or work after your visit. Warning Signs: Redness, warmth or drainage from the removal site Fever (>101 degrees) If you develop any of the above warning signs you should be seen by a health care provider as soon as possible. Referring Provider: VIKY STUBBS [[id number]] Allergies As of Date: 01/28/2025 Noted Allergy Reaction SEASONAL ALLERGIES 10/20/2009 5 - Intolerance Comments: Sneezing, itchy and watery eyes. Date Reviewed: 01/28/2025 Reviewed by: Janelle nEnis APRN.EDITORIAL ASSISTANT - Fully Assessed Reason for Visit: Nexplanon Removal [Other] Primary Visit Diagnosis:Encounter for Nexplanon removal [Z30.46] Prescriptions as of 01/28/2025 - etonogestrel (NEXPLANON) subdermal implant 68 mg 1 Each by SUBDERMAL route as directed. Problem List As Of Date 01/28/2025 Noted Resolved Headache(784.0) [R51] 04/28/2011 04/23/2021 Unspecified [...] 12/03/2021 Chlamydia trachomatis infection in in*05/21/2021 12/03/2021 ASCUS with positive high risk HPV cervical [R87*12/28/2024 Other instructions from your clinician: NEXPLANON (progestin implant) Removal Aftercare Instructions Things to know: Once the implant is removed you are at risk for becoming . Discuss with your provider use of another method of control. Bruising and swelling (more content not included)... Normal [facility] CNOVon 01-26-2025 CNOV Office Visit (WOUCA) OTTONIEL OSMAN ([id number]) 2000 F Date Time Provider Department 01/26/25 4:30 PM VALE COE WOUCA During your visit today, we recorded the following information about you: Temperature Pulse Respiration Blood pressure 98.8 degrees 64/minute 18/minute 120/90 Weight 61 kg Vale Coe PA 01/26/2025 5:10 PM Signed [facility] Subjective Ottoniel Isabel Osman is a 24 year old female. Patient presents with: Trauma: Possible broken toe on left foot x 1 day HPI Left Foot Pain: - Onset: Yesterday around 15:00. - Mechanism: Tripped on a large rock while barefoot, felt a pop in the foot. - Pain: Described as like a needle going through it, radiating up the foot. - Numbness in certain areas of the toe. - Tried Tylenol and ibuprofen with no relief. - denies . Review of Systems Musculoskeletal: (+) left toe pain, (-) posterior foot pain Neurological: (+) left toe numbness Objective BP 120/90 Pulse 64 Temp 37.1 ?C (98.8 ?F) Resp 18 Wt 61 kg (134 lb 7.7 oz) LMP 10/28/2024 (Within Days) SpO2 97% BMI 23.45 kg/m? Physical Exam Vitals and nursing note reviewed. Constitutional: General: She is not in acute distress. Appearance: Normal appearance. She is not toxic-appearing. Musculoskeletal: Left foot: Normal capillary refill. Swelling, tenderness and bony tenderness present. Normal pulse. Comments: Tenderness over left fourth toe-distal phalanx with bruising present. Cap refill less than 2 seconds. Able to wiggle the toe, but reports pain with movement. Nontender metatarsal. Nontender other toes. Pulses 2+ left foot. Nail nauruan present, unable to assess subungual hematoma Skin: General: Skin is warm and dry. Neurological: Mental Status: She is alert. General: No acute distress. MSK/Ext: Bruising noted on foot, decreased sensation to light touch on foot. { 1. Pain of toe of left foot (M79.675) 2. Closed nondisplaced fracture of distal phalanx of lesser toe of left foot, initial encounter (S92.869A) - Acute injury to left fourth toe with paresthesia and ecchymosis after tripping on a rock; X-ray reveals non-displaced intra-articular fracture at the dorsal base of the left fourth distal phalanx. - Daniel taped toes. - Advised use of rigid sole shoe. - Recommended ice application and continuation of Tylenol or Motrin for pain management. - Follow-up with podiatry/orthopedics in a few weeks if symptoms persist. Recording using Cinemur software for draft documentation of the visit was discussed with the patient/authorized marketing sales representative; all questions welcomed and answered. Patient/authorized marketing sales representative agreed to proceed Differential Diagnoses - Fourth toe fracture is more likely for the following reason(s): suggested by HANDP and consistent with imaging - Toe dislocation is less likely for the following reason(s): no evidence on imaging Disposition The patient was discharged. OTC Medications were advised: Tylenol/Motrin Procedures Allergies As of Date: 01/26/2025 Noted Allergy Reaction SEASONAL ALLERGIES 10/20/2009 5 - Intolerance Comments: Sneezing, itchy and watery eyes. Date Reviewed: 01/26/2025 Reviewed by: Mary Ann Martinez MA - Fully Assessed Reason for Visit: Trauma [112] Cmt: Possible broken toe on left foot x 1 day Primary Visit Diagnosis:Pain of toe of left foot [M79.675] Other Visit Diagnosis:Closed nondisplaced fracture of distal phalanx of lesser toe of left foot, initial encounter [S92.535A] Order(s):XR TOE AP/LAT/OBL LEFT [[id number]] Order #: [id number] FUTURE CONSULT PANEL TO ORTHOPAEDICS [004246] Order #: [id number]: 1 FUTURE Prescriptions as of 01/26/2025 - azithromycin (ZITHROMAX) 250 mg tablet TAKE 2 TABLETS by mouth today, THEN take 1 TABLET once a day FOR the next 4 DAYS. - predniSONE (DELTASONE) 10 mg tablet TAKE 6 TABLETS BY MOUTH DAILY FOR 3 DAYS. TAKE 4 TABLETS FOR 3 DAYS. TAKE 2 TABLETS FOR 3 DAYS, THEN TAKE 1 TABLET FOR 3 DAYS. TAKE WITH FOOD - predniSONE (DELTASONE) 20 mg tablet once daily. - cetirizine (ZYRTEC) 10 mg tablet Take 1 tablet by mouth once daily. - etonogestrel (NEXPLANON) subdermal implant 68 mg 1 Each by SUBDERMAL route as directed. Problem List As Of Date 01/26/2025 Noted Resolved Headache(784.0) [R51] 04/28/2011 04/23/2021 Unspecified asthma [J45.909] Short stature [R62.52] 08/14/2017 Dysmenorrhea [N94.6] 05/31/2013 04/23/2021 Fatigue [R53.83] 05/31/2013 04/23/2021 Depression [F32.A] 10/11/2014 Attention deficit hyperactivity disorder (ADHD)*01/25/2015 Family history of hypertrophic cardiomyopathy [*11/01/2015 Tobacco use during , antepartum [O99.3*07/03/2017 05/04/2018 History of depression [Z86.59] 07/03/2017 04/23/2021 Patient requested diagnostic testing [Z01.89] 07/03/2017 02/20/2018 Pelvic pain in p (more content not included)... Normal [facility] XR TOE 3V AP/LAT/OBL LTon XR TOE 3V AP/LAT/OBL LT * * *Final Report* * * DATE OF EXAM: Jan 26 2025 4:56PM WOX 5268 - XR TOE 3V AP/LAT/OBL LT / PROCEDURE REASON: Pain of toe of left foot * * * * Physician Interpretation * * * * EXAMINATION: XR TOE 3V AP/LAT/OBL LT TECHNOLOGIST PROVIDED HISTORY: pain and bruising to left 4th toe CLINICAL INFORMATION: 24 years old Female with Pain of toe of left foot TECHNIQUE: XR TOE 3V AP/LAT/OBL LT Laterality: LEFT Number of different views (projections): 3 COMPARISON: None RESULT: Nondisplaced intra-articular fracture dorsal base of the 4th distal phalanx. Developmental fusion of the 5th DIP joint. Remainder of the visualized joint spaces are maintained. IMPRESSION: Nondisplaced intra-articular fracture dorsal base of the LEFT 4th distal phalanx. 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 Transcribe Date/Time: Jan 26 2025 4:57P Dictated by : SUNDAY VASQUES DO This examination was interpreted and the report reviewed and electronically signed by: SUNDAY VASQUES DO on Jan 26 2025 4:59PM EST [id number] Normal [facility] XR Toes - left 3 Viewson IMPRESSION: Nondisplaced intra-articular fracture dorsal base of the LEFT 4th distal phalanx. 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 Transcribe Date/Time: Jan 26 2025 4:57P Dictated by : SUNDAY VASQUES DO This examination was interpreted and the report reviewed and electronically signed by: SUNDAY VASQUES DO on Jan 26 2025 4:59PM EST DIVISION OF RADIOLOGY * * *Final Report* * * DATE OF EXAM: Jan 26 2025 4:56PM WOX 5268 - XR TOE 3V AP/LAT/OBL LT / PROCEDURE REASON: Pain of toe of left foot * * * * Physician Interpretation * * * * EXAMINATION: XR TOE 3V AP/LAT/OBL LT TECHNOLOGIST PROVIDED HISTORY: pain and bruising to left 4th toe CLINICAL INFORMATION: 24 years old Female with Pain of toe of left foot TECHNIQUE: XR TOE 3V AP/LAT/OBL LT Laterality: LEFT Number of different views (projections): 3 COMPARISON: None RESULT: Nondisplaced intra-articular fracture dorsal base of the 4th distal phalanx. Developmental fusion of the 5th DIP joint. Remainder of the visualized joint spaces are maintained. DIVISION OF RADIOLOGY Provider, Tavia Peraza [facility] - 01/26/2025 * * *Final Report* * * DATE OF EXAM: Jan 26 2025 4:56PM WOX 5268 - XR TOE 3V AP/LAT/OBL LT / PROCEDURE REASON: Pain of toe of left foot * * * * Physician Interpretation * * * * EXAMINATION: XR TOE 3V AP/LAT/OBL LT TECHNOLOGIST PROVIDED HISTORY: pain and bruising to left 4th toe CLINICAL INFORMATION: 24 years old Female with Pain of toe of left foot TECHNIQUE: XR TOE 3V AP/LAT/OBL LT Laterality: LEFT Number of different views (projections): 3 COMPARISON: None RESULT: Nondisplaced intra-articular fracture dorsal base of the 4th distal phalanx. Developmental fusion of the 5th DIP joint. Remainder of the visualized joint spaces are maintained. IMPRESSION IMPRESSION: Nondisplaced intra-articular fracture dorsal base of the LEFT 4th distal phalanx. 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 Transcribe Date/Time: Jan 26 2025 4:57P Dictated by : SUNDAY VASQUES DO This examination was interpreted and the report reviewed and electronically signed by: SUNDAY VASQUES DO on Jan 26 2025 4:59PM EST [facility] Radiology Study observation (narrative) [facility] XR Toes - left 3 ViewsOrdere d By: Ccf Provider on 01-26-2025 [facility] hCG Titer Quant., Serumon HCG QUANT. < 1 Normal <9 non-preg [facility] Comment on above: Result Comment: Gest ational Age 0.2-1 Week: 5-50 mIU/mL 1-2 Weeks: 50-500 mIU/mL 2-3 Weeks: 100-5000 mIU/mL 3-4 Weeks: 500-10,000 mIU/mL 4-5 Weeks:1000-50,000 mIU/mL 5-6 Weeks: 10,000-100,000 mIU/mL 6-8 Weeks: 15,000-200,000 mIU/mL 2-3 Months:10,000-100,000 mIU/mL Performed By: #### L 700.8000 #### [facility] Laboratory [address] [place], [address] Emergency Department Summary on 01-15-2025 Emergency Department Summary [facility] Medical Records Department [address] [place] [address] Emergency Department Summary 01/15/25 MR#: [id number] Acct: [id number] Name: OTTONIEL OSMAN LIA Rep #: [id number] : 2000 From: Jose Melara DO PCP: Care Physician,No Primary Status:DEP ER Location: ED HPI History of Present Illness Chief Complaint: Sore Throat Informant: patient and spouse/S.O. Narrative Narrative: Patient is a 24-year-old female with reported history of anxiety and depression as well as ADHD. She states she was diagnosed with asthma when she was younger but reportedly outgrew it. She states that she does smoke/vape daily. She reports that for approximately 4 weeks now she has had nasal congestion drainage and cough. She states she is felt short of breath with this. She was seen in the ER roughly 2 weeks ago and had an x-ray which was normal. She states she took a short round of prednisone and has been using an inhaler daily. Despite this treatment she continues to have congestion and cough and secondary to this comes in for evaluation. [facility] Medical History HPV (human papilloma virus) infection [...] 1 - 2 puff inhalation Q4H PRN DE N 01/01/25 Unknown Rx aerosol inhaler (Ventolin HFA) Wheezing #1 inh prednisone 20 mg tablet 40 mg (2 x 20 mg) PO DAILY #10 tab s 01/01/25 Unknown Rx azithromycin 250 mg tablet See Rx Instructions PO .COMPLEX #6 01/15/25 Unknown Rx (Zithromax Z-Bruno) tabs prednisone 10 mg tablet 10 mg PO DAILY #48 TABLETS 5 Unknown Rx Allergy/AdvReac Type Severity Reaction Status Date / Time No Known Allergies Allergy Verified 01/15/25 22:13 Family History Father Hypertrophic cardiomyopathy Grandfather Hypertrophic cardiomyopathy Surgical History H/O partial resection of colon History of appendectomy History of tonsillectomy Social History Smoking Status: Current every day smoker tobacco type: e-cigarettes alcohol intake: current ROS ROS ED Constitutional Constitutional ED: Denies chills or fever(s) Eyes Eyes: Denies blurry vision or change in vision ENT ENT ED: Reports rhinorrhea and sore throat Cardiovascular Cardiovascular: Denies chest pain Respiratory/Chest Respiratory/Chest: Reports cough and dyspnea Gastrointestinal Gastrointestinal: Denies abdominal pain, diarrhea, nausea or vomiting Genitourinary Genitourinary ED: Denies dysuria Musculoskeletal Musculoskeletal: Denies back pain or myalgias Integumentary Denies rash Neurologic Neurologic: Denies headache(s) Hematologic/Lymphatic Hematologic/Lymphatic: Denies easy bleeding or easy bruising Allergic/Immunologic Allergic/Immunologic ED: Denies mouth swelling or tongue swelling EXAM Physical Exam Const Vital Signs: 01/15/25 22:14 01/15/25 22:54 Temperature 97.9 F 97.9 F Temperature Source Oral Pulse Rate 106 H 110 H Respiratory Rate 18 18 Blood Pressure 130/85 H 139/82 H Blood Pressure Mean 100 101 Pulse Ox 96 99 Oxygen Delivery Method Room Air Positive well nourished and well developed General Appearance ED: well developed; Negative for pallor HEENT HEENT Narrative: Bilateral TMs are retracted but show no secondary findings to suggest infection Nasal mucosa is hyperemic and boggy with enlarged inferior nasal turbinates There is cobblestoning noted in the posterior pharynx consistent with sinus drainage but no airway edema or compromise; no secondary findings to suggest infection Ey (more content not included)... [facility] (WOUCA) OTTONIEL OSMAN ([id number]) 2000 F Date Time Provider Department 01/12/25 3:45 PM VALE COE During your visit today, we recorded the following information about you: Temperature Pulse Respiration Blood pressure 98 degrees 115/minute 18/minute 124/87 Weight Last Period 58.8 kg 10/28/24 Vale Coe PA 01/12/2025 3:51 PM Signed [facility] Subjective Ottoniel Isabel Osman is a 24 year old female. [...] test in a few days and contact MEDICAL STAFF MANAGER if positive. Recording using Cinemur software for draft documentation of the visit was discussed with the patient/authorized marketing sales representative; all questions welcomed and answered. Patient/authorized marketing sales representative agreed to proceed Differential Diagnoses [...] Diagnosis:Missed menses [N92.6] Order(s):UA DIP,URINE HCG (POC) [[id number]] Order #: [id number]. #:[id number] Prescriptions as of 01/13/2025 - predniSONE [...] Chlamydia trachomatis (more content not included)... Normal [facility] Bacteria Ur Culton 5 Bacteria identified Cx Nom (U) ORGANISM ID: 1 10,000 -<50,000 CFU/ml Normal urogenital edwin Normal [facility] Comment on above: Performed By: #### 6 30-4 ####[facility] LABCLIA [id number] [place] [place] [address] STATES OF [facility] CNOVon 01-03-2025 CNOV Office Visit (OBGYWM ) OTTONIEL OSMAN Isabel ([id number]) 2000 F Date Time Provider Department 01/03/25 10:10 AM COLETTE HAIRSTON During your visit today, we recorded the following information about you: Blood pressure Weight 126/74 58.1 kg Colette Hairston MD 01/03/2025 11:10 AM Signed Ottoniel is a 24 year old Female [...] effect PLAN: Repeat pap in 12 months MD Crystal Peralta [place], [place] 01/03/2025 10:17 AM Signed YOUR RECOVERY [...] office. Referr (more content not included)... Normal [facility] UA DIP, URINE (POC)on 2024 BILIRUBIN UA (POCT) Negative Negative [facility] CLARITY UA (POCT) Clear [facility] COLOR UA (POCT) Yellow [facility] GLUCOSE UA (POCT) Negative Negative mg/dL [facility] Hemoglobin Ql (U) Negative Negative [facility] Interpretation and review of laboratory results Abnormal [facility] KETONE UA (POCT) Negative Negative mg/dL [facility] LEUKOCYTES UA (POCT) Negative Negative [facility] NITRITE UA (POCT) Negative Negative [facility] PH UA (POCT) 6.5 4.5 - 8.0 [facility] Protein Ql (U) 100 mg/dL Abnormal Negative [facility] SPECIFIC GRAVITY UA (POCT) >=1.030 1.005 - 1.030 [facility] UROBILINOGEN UA (POCT) 0.2 Normal E.U./d L [facility] Location:[facility], [facility] [address], [place], [address] [facility] POINT OF CARE [facility] UA DIP,URINE HCG (POC)on Beta HCG ( test) Ql (U) Negative Negative [facility] Comment on above: Location:[facility], [facility] [address], [place], [address] [place] (POCT) Internal QC OK [facility] Location:[facility], [address] [facility], [place], [address] [facility] POINT OF CARE [facility] Chest PA and Lateralon 01-01 Chest PA and Lateral [facility] Imaging Services [address] [place] [address] Chest PA and Lateral MR#: [id number] Acct: [id number] Name: DAWSONOTTONIEL JOHNIE LIA Rep #: [id number] : 2000 F From: Mina Galicia MD PCP: Care Physician,No Primary Status: REG ER Study: Chest PA and Lateral Date of Exam: 01/01/25 Exam# [id number] Ordering Dr: Mona Watts DO PROCEDURE: CHEST PA AND LATERAL 01/01/2025 REASON FOR EXAM: COUGH TECHNIQUE: CHEST PA AND LATERAL COMPARISON: 09/27/2020. FINDINGS: The heart is normal in size. The lungs are clear. No acute osseous abnormalities. RAD/Chest PA and Lateral IMPRESSION: No acute cardiopulmonary abnormalities. Reading Location: [id number] CC: Dr. Mona Watts DO; No Primary Care Physician Auto Fleet Maintenance Manager: Signed Normal [facility] Emergency Department Summary on 01-01-2025 Emergency Department Summary [facility] Medical Records Department [address] [place] [address] Emergency Department Summary 01/01/25 MR#: [id number] Acct: [id number] Name: OTTONIEL OSMAN LIA Rep #: [id number] : 2000 24 From: Mona Watts DO [...] loss, night sweats or neck swelling. [facility] Medical History HPV (human papilloma virus) infection [...] 1 - 2 puff inhalation Q4H PRN DE N 01/01/25 Unknown Rx aerosol inhaler (Ventolin [...] not included)... Normal [facility] B-HCG SerPl-aCncon 5 HCG.beta subunit Qn m[IU]/mL Normal <5.0 [facility] Comment on above: Order Comment: Speci men Type: BLOOD SPECIMENOrdering Facility: [facility] Address: [address] [place] [address] Result Comment: Tim lemonsty Performed By: #### 2 1198-7 ####[facility] LABIA [id number] [address] [place] C. trachomatis+N. gonorrhoea e DNA ANURADHA+probe Ql (Unsp spec)on 12-22-2024 C. trachomatis rRNA ANURADHA+probe Ql (Unsp spec) Not detected Normal Not detected [facility] Comment on above: Order Comment: Speci men Type: SWABOrdering Facility: [facility] Address: [address] [place] [address] Performed By: #### 3 6902-5 ####[facility] LABIA [id number] [address] [place] N. gonorrhoeae rRNA ANURADHA+probe Ql (Unsp spec) Not detected Normal Not detected [facility] Comment on above: Order Comment: Speci men Type: SWABOrdering Facility: [facility] Address: [address] [place] [address] Performed By: #### 3 6902-5 ####[facility] LABIA [id number] [address] [place] CNOVon 12-22-2024 CNOV Office Visit (OBGYWM ) OTTONIEL OSMAN ([id number]) 2000 F Date Time Provider Department 12/22/24 2:00 PM JANELLE ENNIS During your visit today, we recorded the following information about you: Blood pressure Weight Height Last Period 122/88 58.5 kg 1.613 m 10/31/24 Janelle Ennis, [employer] POWER PLANT OPERATOR.EDITORIAL ASSISTANT 12/22/2024 2:39 PM Signed [employer] Director offered: Patient declines. Accompanied by significant otherSymone Alcazar is a 24 year old who presents for an annual gynecologic exam without complaints. 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 and then missed menses in [...] Living2 SAB0 IAB0 Ectopic0 Multiple0 Live Births2 Manager Primary History LMP: 12/01/2024 (Approximate), Unknown Age at Menarche: Age at First : Age at Menopause: Manager Primary History Comments: Sexual Activity: Yes; Male Contraception: Implant PAST MEDICAL HISTORY Diagnosis Date Acute bronchiolitis due to respiratory syncytial virus (RSV) resolved Asthma (HCC) no asthma attacks in several years Attention deficit hyperactivity disorder (ADHD), combined type 01/25/2015 Chlamydia trachomatis infection in in first trimester (HCC) 05/21/2021 11/14/21- ALLEN negative. 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 SW Depression [...] discussed with the Patient or Patient's Authorized Preparole Counseling Aide. As applicable, any other physician, advance practice provider, medical student, or other health professional student that will be observing or involved in the sensitive examination for educational or training purposes was discussed with the Patient or Authorized Preparole Counseling Aide. The Patient or Authorized Preparole Counseling Aide has agreed to proceed with the sensitive [...] external genitalia normal, normal Bartholin's glands, urethra, [place]'s glands, no vulvar lesions, no cervical lesions, good vaginal support, physiologic (more content not included)... Normal [facility] QUANTITATIVEon HCG.beta subunit Qn NINF [facility] Comment on above: Negative HCG.beta subunit Qnon 2024 Interpretation and review of laboratory results Normal [facility] HIGH RISK HUMAN PAPILLOMA ANNA (HPV), PCR FOR DETECTION AND GENOTYPINGon 12-22-2024 HPV 16 Ag Ql (Unsp spec) Not detected Normal Not detected [facility] Comment on above: Order Comment: Speci men Type: FLUID SPECIMENOrdering Facility: [facility] Address: [address] [place] [address] Performed By: #### H PVHRT ####[facility] [id number] [place] [address] [place] HPV 18 Ag Ql (Unsp spec) Not detected Normal Not detected [facility] Comment on above: Order Comment: Speci men Type: FLUID SPECIMENOrdering Facility: [facility] Address: [address] [place] [address] Performed By: #### H PVHRT ####[facility]ITAL[facility] [id number] [place] [address] [place] HPV 31+33+35+39+45+51+52+5 6+58+59+66+68 DNA ANURADHA+probe Ql (Cvx) Detected Abnormal Not detected [facility] Comment on above: Order Comment: Speci men Type: FLUID SPECIMENOrdering Facility: [facility] Address: [address] [place] [address] Result Comment: High Risk HPV Other Type includes HPV types 31, 33, 35, 39, 45, 51, 52, 56, 58, 59, 66 and 68. Performed By: #### H PVHRT ####[facility] [id number] [place] [address] [place] PAP TESTon 12-22-2024 ADEQUACY Normal [facility] Comment on above: Order Comment: Speci men Type: FLUID SPECIMENOrdering Facility: [facility] Address: [address] [place] [address] Result Comment: Sati sfactory for interpretation. Transformation zone present Performed By: #### L [id number] ####[facility] [id number] [address] LABCLIA [id number] [place] [address] [place] CASE REPORT Normal [facility] Comment on above: Order Comment: Speci men Type: FLUID SPECIMENOrdering Facility: [facility] Address: [address] [place] [address] Result Comment: Gyne cologic Cytology Report Case: [id number] Authorizing Provider: Janelle Ennis APRN.EDITORIAL ASSISTANT Collected: 12/22/2024 02:41 PM Ordering Location: OB/Gynecology Received: 12/22/2024 04:51 PM First Screen: Woodward, Fabiola, CT, ASCP Pathologist: Manuela Woodward MD Specimen: Pap Test, ThinPrep, Cervix Performed By: #### L [id number] ####[facility]ORYCLIA [id number] [address] LABCLIA [id number] [place] [address] [place] CLINICAL HISTORY, CYTOLOGY, MOTOR POLARIZER Routine Exam Normal [facility] Comment on above: Order Comment: Speci men Type: FLUID SPECIMENOrdering Facility: [facility] Address: [address] [place] [address] Performed By: #### L [id number] ####[facility]ORYCLIA [id number] [address] STATES OF [facility] LABCLIA [id number] [place] [address] [place] CYTOLOGY PAP OTHER INTERPRETATION Predominance of coccobacilli consistent with shift in vaginal edwin. Normal [facility] Comment on above: Order Comment: Speci men Type: FLUID SPECIMENOrdering Facility: [facility] Address: [address] [place] [address] Performed By: #### L [id number] ####[facility] [id number] [address] STATES [facility] LABCLIA [id number] [place] [address] [place] FINAL PERFORMING LAB Normal [facility] Comment on above: Order Comment: Speci men Type: FLUID SPECIMENOrdering Facility: [facility] Address: [address] [place] [address] Result Comment: Tech nical component, electrical helper screening performed at: [facility], [address] [place] [address] CLIA: [id number] Diagnostic interpretation performed at: [facility], [address] [place] [address] CLIA# [id number] Stand In: Nissa White MD Performed By: #### L [id number] ####[facility] LABORATORYCLIA [id number] [address] LABCLIA [id number] [place] [address] [place] INTERPRETATION, CYTOLOGY, MOTOR POLARIZER Abnormal [facility] Comment on above: Order Comment: Speci men Type: FLUID SPECIMENOrdering Facility: [facility] Address: [address] [place] [address] Result Comment: Atyp ical squamous cells of undetermined significance (ASC-US). at 0848 EDT Performed By: #### L [id number] ####[facility] [id number] [address] LABCLIA [id number] [place] [address] [place] LMP 12/01/2024 Normal [facility] Comment on above: Order Comment: Speci men Type: FLUID SPECIMENOrdering Facility: [facility] Address: [address] [place] [address] Performed By: #### L [id number] ####[facility] [id number] [address] LABCLIA [id number] [address] [place] PAP DISCLAIMER COMMENT The Pap Smear is a screening test for cervical cancer. False negative results occur with all screening tests, emphasizing the need for rescreening at recommended intervals, and clinical correlation. Normal [facility] Comment on above: Order Comment: Speci men Type: FLUID SPECIMENOrdering Facility: [facility] Address: [address] [place] [address] Performed By: #### L [id number] ####[facility]ORYIA [id number] [address] LABCLIA [id number] [place] [address] [place] PAP GENERAL CATEGORIZATION Epithelial Cell Abnormality Normal [facility] Comment on above: Order Comment: Speci men Type: FLUID SPECIMENOrdering Facility: [facility] Address: [address] [place] [address] Performed By: #### L [id number] ####[facility]ORYIA [id number] [address] LABCLIA [id number] [place] [address] [place] PAP AIRFRAME TECHNICIAN COMMENT This specimen has be en analyzed by the FDA-approved CityOd[employer]TM System, which uses digital imaging and an enhanced artificial intelligence image analysis algorithm to identify malhotra of interest on the microscopic slide, to assist the physical therapist technician and pathologist in evaluating cells on ThinPrep Pap tests. Following analysis, malhotra of interest on the microscopic slide selected by the algorithm are reviewed by a physical therapist technician. If a sample requires hierarchical review, the pathologist will review the same malhotra of interest selected by the algorithm prior to final interpretation. Normal [facility] Comment on above: Order Comment: Speci men Type: FLUID SPECIMENOrdering Facility: [facility] Address: [address] [place], [place] [address] [address] Performed By: #### L [id number] ####[facility]ATORYCLIA [id number] [address] STATES OF [facility] LABCLIA [id number] [place] [address] CNOVon 11-08-2024 CNOV Office Visit (UCWSTR ) OTTONIEL OSMAN ([id number]) 2000 F Date Time Provider Department 11/08/24 6:45 PM KRISHAN WING [facility] During your visit today, we recorded the following information about you: Temperature Pulse Respiration Blood pressure 98.7 degrees 93/minute 19/minute 116/72 Weight 60.5 kg Krishan Wing APRN.EDITORIAL ASSISTANT 11/08/2024 7:46 PM Signed [facility] [...] history is provided by the patient. No sign language interpreter was used. Trauma The current episode started [...] trimester 05/21/2021 11/14/21- ALLEN negative. 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 SW Depression [...] YR (ADACEL, BOOSTRIX) [place] TEACHING PROVIDER (Physician/PA/CARB[employer] CAPTURE POWER PLANT OPERATOR) NOTE OF PERSONAL INVOLVEMENT IN CARE: I have personally seen and examined the patient and performed the (more content not included)... Normal [facility] Abdomen/Pelvis W IV Cont ONL Yon 10-30-2024 Abdomen/Pelvis W IV Cont ONLY [facility] Imaging Services [address] [place] [address] [id number] Abdomen/Pelvis W IV Cont ONLY MR#: [id number] Acct: [id number] Name: OSMANOTTONIEL JOHNIE LIA Rep #: [id number] : 2000 F 24 From: Darwin Morse PCP: Care Physician,No Primary Status: REG ER Study: Abdomen/Pelvis W IV Cont ONLY Date of Exam: Exam# [id number] Ordering Dr: Luis Armando Becerril DO PROCEDURE: [...] nondistention; consider correlation with urinalysis. Reading Location: [facility] CC: Dr. 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 Normal [facility] Absolute lymphocyte countOrd ered By: Luis Armando Becerril on 10-30-2024 Lymphocytes Auto (Unsp spec) [#/Vol] 4.10 10*3/uL 0.83-4.51 [facility] Absolute neutrophil countOrd ered By: Luis Armando Becerril on 10-30-2024 Neutrophils (Bld) [#/Vol] 7.7 10*3/uL 2.0-7.7 [facility] Anion gap in Serum or Plasma Ordered By: Luis Armando Becerril on 10-30-2024 Anion gap [Moles/Vol] 11 mmol/L 5-15 [facility] Automated lymphocyte count a s percentage of total leukocytesOrdered By: Luis Armando Becerril on 10-30-2024 Lymphocytes/100 WBC Auto (Unsp spec) 30.2 % 19-41 [facility] BUN/creatinine ratioOrdered By: Luis Armando Becerril on 10-30-2024 Urea nitrogen/Creatinine [Mass ratio] 13.7 mg/mg - [facility] Basic Metabolic Profile (BMP )on 10-30-2024 BUN/CRE 13.7 RATIO Normal 03-28 [facility] Comment on above: Performed By: #### L 500.2500, L100.0100, L700.6800 #### [facility] Laboratory [address] [place], [address] Calcium [Mass/Vol] 9.1 mg/dL Normal 7.6-11.0 [facility] Comment on above: Performed By: #### L 500.2500, L100.0100, L700.6800 #### [facility] [address] [place], [address] Chloride [Moles/Vol] 108 mmol/L Normal 98-108 [facility] Comment on above: Performed By: #### L 500.2500, L100.0100, L700.6800 #### [facility] [address] [place], [address] CO2 [Moles/Vol] 21.3 mmol/L Normal 21.0-32.0 [facility] Comment on above: Performed By: #### L 500.2500, L100.0100, L700.6800 #### [facility] [address] [place], [address] Creatinine [Mass/Vol] 0.80 mg/dL Normal 0.70-1.20 [facility] Comment on above: Performed By: #### L 500.2500, L100.0100, L700.6800 #### [facility] [address] [place], [address] ECRCL 92.83 ml/min Normal 50-250 [facility] Comment on above: Performed By: #### L 500.2500, L100.0100, L700.6800 #### [facility] [address] [place], [address] GAP 11 Normal 5-15 [facility] Comment on above: Performed By: #### L 500.2500, L100.0100, L700.6800 #### [facility] [address] [place], [address] GFR/1.73 sq M.predicted among non-blacks MDRD (S/P/Bld) [Vol rate/Area] 104 mL/min/{1.73_m2} Normal >60 [facility] Comment on above: Result Comment: mL/m in/1.73m2 CKD-EPI Creatinine Equation (2020) Performed By: #### L 500.2500, L100.0100, L700.6800 #### [facility] [address] [place], [address] Glucose [Mass/Vol] 94 mg/dL Normal 70-99 [facility] Comment on above: Performed By: #### L 500.2500, L100.0100, L700.6800 #### [facility] [address] [place], [address] Potassium [Moles/Vol] 4.3 mmol/L Normal 3.3-5.1 [facility] Comment on above: Performed By: #### L 500.2500, L100.0100, L700.6800 #### [facility] [address] [place], [address] Sodium [Moles/Vol] 140 mmol/L Normal 133-145 [facility] Comment on above: Performed By: #### L 500.2500, L100.0100, L700.6800 #### [facility] [address] [place], [address] Urea nitrogen [Mass/Vol] 11 mg/dL Normal 4-19 [facility] Comment on above: Performed By: #### L 500.2500, L100.0100, L700.6800 #### [facility] [address] [place], [address] Basophil percentageOrdered B y: Luis Armando Becerril on 10-30-2024 Basophils/100 WBC (Bld) 0.8 % 0-1 [facility] Bilirubin Test strip Ql (U)O rdered By: Luis Armando Becerril on 10-30-2024 Bilirubin Ql (U) Negative Negative [facility] CBC W/Diff, Automatedon 10-08 Absolute Lymph 4.10 X10 3/uL Normal 0.83-4.51 [facility] Comment on above: Performed By: #### L 500.2500, L100.0100, L700.6800 #### [facility] [address] [place], [address] Absolute Neut 7.7 X10 3/uL Normal 2.0-7.7 [facility] Comment on above: Performed By: #### L 500.2500, L100.0100, L700.6800 #### [facility] [address] [place], [address] Basophils/100 WBC (Bld) 0.8 % Normal 0-1 [facility] Comment on above: Performed By: #### L 500.2500, L100.0100, L700.6800 #### [facility] [address] [place], [address] Eosinophils/100 WBC (Bld) 6.0 % High 0-5 [facility] Comment on above: Performed By: #### L 500.2500, L100.0100, L700.6800 #### [facility] [address] [place], [address] Erythrocyte distribution width (RBC) [Ratio] 13.7 % Normal 11.6-14.6 [facility] Comment on above: Performed By: #### L 500.2500, L100.0100, L700.6800 #### [facility] [address] [place], [address] Hematocrit (Bld) [Volume fraction] 40.6 % Normal 37-47 [facility] Comment on above: Performed By: #### L 500.2500, L100.0100, L700.6800 #### [facility] [address] [place], [address] Hemoglobin (Bld) [Mass/Vol] 13.7 g/dL Normal 12.0-15.0 [facility] Comment on above: Performed By: #### L 500.2500, L100.0100, L700.6800 #### [facility] [address] [place], [address] IG% 0.400 Normal 0.0-0.9 [facility] Comment on above: Result Comment: IG% - Immature Granulocytes (promyelocytes, myelocytes and metamyelocytes) > 1% indicates that a LEFT SHIFT is Present. Performed By: #### L 500.2500, L100.0100, L700.6800 #### [facility] [address] [place], [address] Lymphocytes/100 WBC (Bld) 30.2 % Normal 19-41 [facility] Comment on above: Performed By: #### L 500.2500, L100.0100, L700.6800 #### [facility] [address] [place], [address] MCH (RBC) [Entitic mass] 30.6 pg Normal 27.0-32.0 [facility] Comment on above: Performed By: #### L 500.2500, L100.0100, L700.6800 #### [facility] [address], [address] MCHC (RBC) [Mass/Vol] 33.7 g/dL Normal 32-36 [facility] Comment on above: Performed By: #### L 500.2500, L100.0100, L700.6800 #### [facility] [address] [place], [address] MCV (RBC) [Entitic vol] 90.8 fL Normal 81-99 [facility] Comment on above: Performed By: #### L 500.2500, L100.0100, L700.6800 #### [facility] [address] [place], [address] Monocytes/100 WBC (Bld) 5.7 % Normal 0-10 [facility] Comment on above: Performed By: #### L 500.2500, L100.0100, L700.6800 #### [facility] [address] [place], [address] Neutrophils/100 WBC (Bld) 56.9 % Normal 47-70 [facility] Comment on above: Performed By: #### L 500.2500, L100.0100, L700.6800 #### [facility] [address] [place], [address] Nucleated RBC (Bld) [#/Vol] 0 10*3/uL Normal 0-5 [facility] Comment on above: Performed By: #### L 500.2500, L100.0100, L700.6800 #### [facility] [address] [place], [address] Platelet mean volume (Bld) [Entitic vol] 11.2 fL Normal 6.2-12.0 [facility] Comment on above: Performed By: #### L 500.2500, L100.0100, L700.6800 #### [facility] [address] [place], [address] Platelets (Bld) [#/Vol] 255 10*3/uL Normal 150-450 [facility] Comment on above: Performed By: #### L 500.2500, L100.0100, L700.6800 #### [facility] [address] [place], [address] RBC (Bld) [#/Vol] 4.47 10*6/uL Normal 4.2-5.4 [facility] Comment on above: Performed By: #### L 500.2500, L100.0100, L700.6800 #### [facility] [address] [place], [address] RDW SD 45.9 fl High 35.1-43.9 [facility] Comment on above: Performed By: #### L 500.2500, L100.0100, L700.6800 #### [facility] [address] [place], [address] WBC (Bld) [#/Vol] 13.6 10*3/uL High 4.4-11.0 [facility] Comment on above: Performed By: #### L 500.2500, L100.0100, L700.6800 #### [facility] [address] [place], [address] Carbon dioxide, total [Moles /volume] in Central venous bloodOrdered By: Luis Armando Becerril on 10-30-2024 CO2 [Moles/Vol] 21.3 mmol/L 21.0-32.0 [facility] Chloride assayOrdered By: Ez Becerril on 10-30-2024 Chloride [Moles/Vol] 108 mmol/L 98-108 [facility] Emergency Department Summary on 10-30-2024 Emergency Department Summary [facility] Medical Records Department [address] [place] [address] Emergency Department Summary 10/30/24 MR#: [id number] Acct: [id number] Name: OTTONIEL OSMAN LIA Rep #: [id number] : 2000 24 From: Luis Armando Becerril [...] her diverticulitis. Prior similar symptoms: Yes PFSH PFSH Medical History (Updated 10/30/24 @ 11:[address] Luis Armando Becerril, ) Injury of head and neck Asthma Anxiety [...] not included)... Normal [facility] Eosinophil percentageOrdered By: Luis Armando Becerril on 10-30-2024 Eosinophils/100 WBC (Bld) 6.0 % High 0-5 [facility] Erythrocyte distribution wid th ratioOrdered By: Luis Armando Becerril on 10-30-2024 Erythrocyte distribution width (RBC) [Ratio] 13.7 % 11.6-14.6 [facility] Erythrocyte distribution wid th standard deviationOrdered By: Luis Armando Becerril on 10-30-2024 Erythrocyte distribution width (RBC) [Ratio] 45.9 fl High 35.1-43.9 [facility] Glomerular filtration rate ( GFR) estimation/1.73 sq m using serum, plasma, or whole bOrdered By: Luis Armando Becerril on 10-30-2024 GFR/1.73 sq M.predicted among non-blacks MDRD (S/P/Bld) [Vol rate/Area] 104 mL/min/{1.73_m2} >60 [facility] Comment on above: mL/min/1.73m2 CKD-EP I Creatinine Equation (2020) Hematocrit Auto (Bld) [Volum e fraction]Ordered By: Luis Armando Becerril on 10-30-2024 Hematocrit (Bld) [Volume fraction] 40.6 % 37-47 [facility] Hemoglobin measurementOrdere d By: Luis Armando Becerril on 10-30-2024 Hemoglobin (Bld) [Mass/Vol] 13.7 g/dL 12.0-15.0 [facility] Immature granulocytes/100 WB C Auto (Bld)Ordered By: Luis Armando Becerril on 10-30-2024 Immature granulocytes/100 WBC (Bld) 0.400 % 0.0-0.9 [facility] Comment on above: IG% - Immature Granu locytes (promyelocytes, myelocytes and metamyelocytes) > 1% indicates that a LEFT SHIFT is Present. Ketones Test strip Ql (U)Ord ered By: Luis Armando Becerril on 10-30-2024 Ketones Ql (U) Negative Negative [facility] Lipid Profileon 10-30-2024 TRIG Normal [facility] Comment on above: Result Comment: WRON G PATIENT ORDERS The drugs N-Acetylcysteine and Metamizole may falsely depress this assay. Performed By: #### L 100.0100, L500.4050, L501.2450 #### [facility] Laboratory [address] [place], [address] CHOL Normal <=200 [facility] Comment on above: Result Comment: [facility] PATIENT ORDERS Performed By: #### L 100.0100, L500.4050, L501.2450 #### [facility] Laboratory [address] [place], [address] CHOL:HDL Normal [facility] Comment on above: Result Comment: [facility] PATIENT ORDERS Performed By: #### L 100.0100, L500.4050, L501.2450 #### [facility] [address] [place], [address] CLDL Normal [facility] Comment on above: Result Comment: [facility] PATIENT ORDERS Performed By: #### L 100.0100, L500.4050, L501.2450 #### [facility] [address] [place], [address] HDL Normal [facility] Comment on above: Result Comment: [facility] PATIENT ORDERS Performed By: #### L 100.0100, L500.4050, L501.2450 #### [facility] [address] [place], [address] VLDL Normal 5-40 [facility] Comment on above: Result Comment: [facility] PATIENT ORDERS Performed By: #### L 100.0100, L500.4050, L501.2450 #### [facility] [address] [place], [address] MCV (mean corpuscular volume ) determinationOrdered By: Luis Armando Becerril on 10-30-2024 MCV (RBC) [Entitic vol] 90.8 fL 81-99 [facility] Mean corpuscular hemoglobin (MCH) determinationOrdered By: Luis Armando Becerril on 10-30-2024 MCH (RBC) [Entitic mass] 30.6 pg 27.0-32.0 [facility] Mean corpuscular hemoglobin concentration (MCHC) determinationOrdered By: Luis Armando Becerril on 10-30-2024 MCHC (RBC) [Mass/Vol] 33.7 g/dL 32-36 [facility] Mean platelet volume determi nationOrdered By: Luis Armando Becerril on 10-30-2024 Platelet mean volume (Bld) [Entitic vol] 11.2 fL 6.2-12.0 [facility] Microscopic analysis of urin e for red blood cells (RBC)Ordered By: Luis Armando Becerril on 10-30-2024 Microscopic analysis of urine for red blood cells (RBC) 0 SEEN /hpf 0-5 [facility] Monocyte percentageOrdered B y: Luis Armando Becerril on 10-30-2024 Monocytes/100 WBC (Bld) 5.7 % 0-10 [facility] Mucus LM Ql (Urine sed)Order ed By: Luis Armando Becerril on 10-30-2024 Mucus Ql (Urine sed) RARE /hpf [facility] Neutrophil percentageOrdered By: Luis Armando Bceerril on 10-30-2024 Neutrophils/100 WBC (Bld) 56.9 % 47-70 [facility] Nitrite Test strip Ql (U)Ord ered By: Luis Armando Becerril on 10-30-2024 Nitrite Ql (U) Negative Negative [facility] Nucleated red blood cell per centageOrdered By: Luis Armando Becerril on 10-30-2024 Nucleated RBC/100 WBC (Bld) [Ratio] 0 % 0-5 [facility] Platelet countOrdered By: Ez Becerril on 10-30-2024 Platelets (Bld) [#/Vol] 255 10*3/uL 150-450 [facility] Potassium measurement (mass/ volume)Ordered By: Luis Armando Becerril on 10-30-2024 Potassium (Unsp spec) [Mass/Vol] 4.3 mmol/L 3.3-5.1 [facility] ,Serum,hCG Quali.on 10-30-2024 HCG, SERUM QUAL Negative Normal [facility] Comment on above: Performed By: #### L 500.2500, L100.0100, L700.6800 #### [facility] Laboratory [address] [place], [address] Protein Test strip Ql (U)Ord ered By: Luis Armando Becerril on 10-30-2024 Protein Ql (U) 15 mg/dl High Negative [facility] RBC Auto (Bld) [#/Vol]Ordere d By: Luis Armando Becerril on 10-30-2024 RBC (Bld) [#/Vol] 4.47 10*6/uL 4.2-5.4 [facility] Serum beta-hCG test, qualita tiveOrdered By: Luis Armando Becerril on 10-30-2024 Beta HCG ( test) Ql Negative [facility] Serum creatinine measurement (mass/volume)Ordered By: Luis Armando Becerril on 10-30-2024 Creatinine [Mass/Vol] 0.80 mg/dL 0.70-1.20 [facility] Serum glucose measurement (m ass/volume)Ordered By: Luis Armando Becerril on 10-30-2024 Glucose [Mass/Vol] 94 mg/dL 70-99 [facility] Serum or plasma calcium honey urement (mass/volume)Ordered By: Luis Armando Becerril on 10-30-2024 Calcium [Mass/Vol] 9.1 mg/dL 7.6-11.0 [facility] Serum or plasma urea nitroge n measurement (mass/volume)Ordered By: Luis Armando Becerril on 10-30-2024 Urea nitrogen [Mass/Vol] 11 mg/dL 4-19 [facility] Sodium levelOrdered By: Luis Armando Becerril on 10-30-2024 Sodium [Moles/Vol] 140 mmol/L 133-145 [facility] Squamous epithelial cells de tection in urine sediment by light microscopyOrdered By: Luis Armando Becerril on 10-30-2024 Epithelial cells.squamous LM Ql (Urine sed) 10-25 SEEN /hpf 5-10 [facility] Urinalysis, Completeon 10-30 BACTERIA 2+ /hpf Normal None Seen [facility] Comment on above: Order Comment: COLLE CTOR TO SPECIFY Performed By: #### L 100.0100, L500.4050, L501.2450 #### [facility] Laboratory [address] [place], [address] EPI,SQUAMOUS 10-25 SEEN Normal 5-10 [facility] Comment on above: Order Comment: COLLE CTOR TO SPECIFY Performed By: #### L 100.0100, L500.4050, L501.2450 #### [facility] [address] [place], [address] Mucus Ql (Urine sed) RARE Normal [facility] Comment on above: Order Comment: COLLE CTOR TO SPECIFY Performed By: #### L 100.0100, L500.4050, L501.2450 #### [facility] [address] [place], [address] RBC 0 SEEN Normal 0-5 [facility] Comment on above: Order Comment: COLLE CTOR TO SPECIFY Performed By: #### L 100.0100, L500.4050, L501.2450 #### [facility] Laboratory [address] [place], [address] WBC 0-5 SEEN Normal 0-5 [facility] Comment on above: Order Comment: COLLE CTOR TO SPECIFY Performed By: #### L 100.0100, L500.4050, L501.2450 #### [facility] [address] [place], [address] Urine clarityOrdered By: Catherine Becerril on 10-30-2024 Clarity (U) Cloudy Clear [facility] Urine color determinationOrd ered By: Luis Armando Becerril on 10-30-2024 Color (U) Yellow Yellow [facility] Urine glucose detectionOrder ed By: Luis Armando Becerril on 10-30-2024 Glucose Ql (U) Normal mg/dl Normal [facility] Urine leukocyte esterase det ection by dipstickOrdered By: Luis Armando Becerril on 10-30-2024 Leukocyte esterase Test strip Ql (U) 25 /ul High Negative [facility] Urine pHOrdered By: Luis Armando prasad on 10-30-2024 pH (U) 8.0 [pH] 5.0 - 8.0 [facility] Urine sediment bacteria coun t by microscopy (number/high power field)Ordered By: Luis Armando Becerril on 10-30-2024 Bacteria LM.HPF (Urine sed) [#/Area] 2 /[HPF] None Seen [facility] Urine specific gravity measu rementOrdered By: Luis Armando Becerril on 10-30-2024 Specific gravity (U) [Rel density] 1.010 1.002-1.030 [facility] Urine urobilinogen measureme ntOrdered By: Luis Armando Becerril on 10-30-2024 Urobilinogen Ql (U) Normal mg/dl Normal [facility] White blood cell (WBC) count Ordered By: Luis Armando Becerril on 10-30-2024 WBC (Bld) [#/Vol] 13.6 10*3/uL High 4.4-11.0 [facility] White blood cell countOrdere d By: Luis Armando Becerril on 10-30-2024 White blood cell count 0-5 SEEN /hpf 0-5 [facility] Emergency Department Summary on 09-14-2024 Emergency Department Summary [facility] Medical Records Department [address] [place] [address] Emergency Department Summary 09/14/24 MR#: [id number] Acct: [id number] Name: OTTONIEL OSMAN LIA Rep #: [id number] : 2000 24 From: Phong Birch DO [...] tried Orajel without any pain relief. [facility] Medical History (Updated 09/14/24 @ 12:38 by [...] to auscul (more content not included)... Normal [facility] 07-16-2024 [facility] Telephone (OBGYWM) OTTONIEL OSMAN ([id number]) 2000 F Date Time Provider Department 07/16/24 VIKY STUBBS OBHARSHWCecilia During your visit today, we recorded the [...] had this pain until now. 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, but [...] Status:Closed by RANDY MONCADA on 07/16/24 Normal [facility] Abdomen/Pelvis W IV Cont ONL Yon 06-25-2024 Abdomen/Pelvis W IV Cont ONLY [facility] Imaging Services [address] [place], [place] [id number] Abdomen/Pelvis W IV Cont ONLY MR#: [id number] Acct: [id number] Name: OTTONIEL OSMAN LIA Rep #: [id number] : 2000 F 24 From: Aleksandr lyn MD PCP: Care Physician,No Primary Status: REG ER Study: Abdomen/Pelvis W IV Cont ONLY Date of Exam: Exam# [id number] Ordering Dr: [place] [id number] EXAM: CT ABDOMEN AND PELVIS WITH INTRAVENOUS [...] right ovarian cyst; ACR White Paper guidelines (Luiz, et. al. JACR 2020;17(2):248-254) suggest no follow-up is necessary. 2. Previous appendectomy. 3. Minimal colonic diverticulosis without evidence for acute diverticulitis. 4. No evidence for small bowel obstruction or obstructive uropathy. Electronically Signed: Aleksandr Jimenez MD at 6:17 EST , CC: Dr. Nigel Rivera MD; No Primary Care Physician [employer] Manager: Signed Normal [facility] Absolute neutrophil countOrd ered By: Nigel Rivera on 06-25-2024 Neutrophils (Bld) [#/Vol] 4.8 10*3/uL 2.0-7.7 [facility] Albumin to globulin ratioOrd ered By: Nigel Rivera on 06-25-2024 Albumin/Globulin [Mass ratio] 1.3 {ratio} 0.9-2.4 [facility] Basophil percentageOrdered B y: Nigel Rivera on 06-25-2024 Basophils/100 WBC (Bld) 0.7 % 0-1 [facility] Beta HCG ( test) Ql Ordered By: Nigel Rivera on 06-25-2024 Serum Test, Qualitative Negative [facility] Bilirubin Test strip Ql (U)O rdered By: Nigel Rivera on 06-25-2024 Bilirubin Ql (U) Negative Negative [facility] Bilirubin, totalOrdered By: Nigel Rivera on 06-25-2024 Bilirubin [Mass/Vol] 0.20 mg/dL 0.20-1.00 [facility] Comment on above: For patients on eltr ombopag therapy, use of Dimension Carrier TBIL is not recommended. Blood urea nitrogen (BUN)/cr eatinine ratioOrdered By: Nigel Rivera on 06-25-2024 Urea nitrogen/Creatinine [Mass ratio] 14.9 mg/mg 10-20 [facility] CBC W/Diff, Automatedon 06-09 SMEAR COMMENT SCANNED Normal [facility] Comment on above: Performed By: #### L 100.0100, L500.4050, L501.2450 #### [facility] Laboratory [address] [place], [address] Carbon dioxide measurementOr dered By: Nigel Rivera on 06-25-2024 CO2 [Moles/Vol] 23.0 mmol/L 21.0-32.0 [facility] Chloride measurementOrdered By: Nigel Rivera on 06-25-2024 Chloride [Moles/Vol] 110 mmol/L High 98-107 [facility] Comprehensive Metabolic Prof ilon 06-25-2024 Albumin [Mass/Vol] 3.4 g/dL Normal 3.2-5.0 [facility] Comment on above: Performed By: #### L 100.0100, L500.4050, L501.2450 #### [facility] Laboratory [address] [place], [address] Albumin/Globulin [Mass ratio] 1.3 {ratio} Normal 0.9-2.4 [facility] Comment on above: Performed By: #### L 100.0100, L500.4050, L501.2450 #### [facility] Laboratory [address] [place], [address] ALK P 59 U/L Normal 45-117 [facility] Comment on above: Performed By: #### L 100.0100, L500.4050, L501.2450 #### [facility] Laboratory [address] [place], [address] ALT [Catalytic activity/Vol] 18 U/L Normal 13-56 [facility] Comment on above: Performed By: #### L 100.0100, L500.4050, L501.2450 #### [facility] Laboratory [address] [place], [address] AST [Catalytic activity/Vol] 8 U/L Low 15-37 [facility] Comment on above: Performed By: #### L 100.0100, L500.4050, L501.2450 #### [facility] [address], [address] Bilirubin [Mass/Vol] 0.20 mg/dL Normal 0.20-1.00 [facility] Comment on above: Result Comment: For patients on eltrombopag therapy, use of Dimension Carrier TBIL is not recommended. Performed By: #### L 100.0100, L500.4050, L501.2450 #### [facility] Laboratory [address] [place], [address] BUN/CRE 14.9 RATIO Normal 10-20 [facility] Comment on above: Performed By: #### L 100.0100, L500.4050, L501.2450 #### [facility] Laboratory [address] [place], [address] CA,Total 9.2 mg/dL Normal 8.5-10.1 [facility] Comment on above: Performed By: #### L 100.0100, L500.4050, L501.2450 #### [facility] Laboratory [address] [place], [address] Chloride [Moles/Vol] 110 mmol/L High 98-107 [facility] Comment on above: Performed By: #### L 100.0100, L500.4050, L501.2450 #### [facility] [address] [place], [address] CO2 [Moles/Vol] 23.0 mmol/L Normal 21.0-32.0 [facility] Comment on above: Performed By: #### L 100.0100, L500.4050, L501.2450 #### [facility] Laboratory [address] [place], [address] Creatinine [Mass/Vol] 0.87 mg/dL Normal 0.55-1.02 [facility] Comment on above: Result Comment: The validity of the calculated GFR GFRAA in patients over 70 years has not been determined. Clinical correlation is essential. Performed By: #### L 100.0100, L500.4050, L501.2450 #### [facility] [address] [place], [address] ECRCL 85.36 ml/min Normal [facility] Comment on above: Performed By: #### L 100.0100, L500.4050, L501.2450 #### [facility] [address] [place], [address] EST GFR - AA 102 mL/min Normal >60 [facility] Comment on above: Result Comment: Afri can Israeli GFR Calc Performed By: #### L 100.0100, L500.4050, L501.2450 #### [facility] [address] [place], [address] GAP 7 Normal 5-15 [facility] Comment on above: Performed By: #### L 100.0100, L500.4050, L501.2450 #### [facility] [address] [place], [address] GFR/1.73 sq M.predicted among non-blacks MDRD (S/P/Bld) [Vol rate/Area] 84 mL/min/{1.73_m2} Normal >60 [facility] Comment on above: Result Comment: Non- GFR Calc Performed By: #### L 100.0100, L500.4050, L501.2450 #### [facility] Laboratory [address] [place], [address] Globulin (S) [Mass/Vol] 2.7 g/dL Normal 2.2-4.2 [facility] Comment on above: Performed By: #### L 100.0100, L500.4050, L501.2450 #### [facility] Laboratory [address] [place], [address] Glucose [Mass/Vol] 111 mg/dL High 74-106 [facility] Comment on above: Result Comment: Fast ing Glucose result from 100 to 125 mg/dL suggests IMPAIRED HOMEOSTASIS per A.D.A. criteria. Performed By: #### L 100.0100, L500.4050, L501.2450 #### [facility] Laboratory [address] [place], [address] Potassium [Moles/Vol] 4.1 mmol/L Normal 3.5-5.1 [facility] Comment on above: Performed By: #### L 100.0100, L500.4050, L501.2450 #### [facility] [address] [place], [address] Sodium [Moles/Vol] 140 mmol/L Normal 136-145 [facility] Comment on above: Performed By: #### L 100.0100, L500.4050, L501.2450 #### [facility] [address] [place], [address] T PROT 6.1 g/dL Low 6.4-8.2 [facility] Comment on above: Performed By: #### L 100.0100, L500.4050, L501.2450 #### [facility] Laboratory [address] [place], [address] Urea nitrogen [Mass/Vol] 13 mg/dL Normal 7-18 [facility] Comment on above: Performed By: #### L 100.0100, L500.4050, L501.2450 #### [facility] [address] [place], [address] Emergency Department Summary on 06-25-2024 Emergency Department Summary [facility] Medical Records Department [address] [place] [address] Emergency Department Summary 06/25/24 MR#: [id number] Acct: [id number] Name: OTTONIEL OSMAN LIA Rep #: [id number] : 2000 From: Nigel Rivera MD PCP: [...] This was almost 9 months ago. PFSH [facility] Medical History Injury of head and [...] not included)... Normal [facility] Eosinophil percentageOrdered By: Nigel Rivera on 06-25-2024 Eosinophils/100 WBC (Bld) 8.4 % High 0-5 [facility] Epithelial cells.squamous LM Ql (Urine sed)Ordered By: Nigel Rivera on 06-25-2024 Epithelial cells.squamous LM.HPF (Urine sed) [#/Area] 50 /[HPF] 5-10 [facility] Erythrocyte distribution wid th (RBC) [Ratio]Ordered By: Nigel Rivera on 06-25-2024 Erythrocyte distribution width (RBC) [Entitic vol] 42.4 fL 35.1-43.9 [facility] Erythrocyte distribution wid th ratioOrdered By: Nigel Rivera on 06-25-2024 Erythrocyte distribution width (RBC) [Ratio] 13.0 % 11.6-14.6 [facility] Estimated glomerular filtrat ion rate (GFR) AmericanOrdered By: Nigel Rivera on 06-25-2024 Estimated GFR (MDRD) Amer 102 mL/min >60 [facility] Comment on above: GFR Calc Estimation of creatinine emery aranceOrdered By: Nigel Rivera on 06-25-2024 Estimated Creatinine Clearance Calc 85.36 ml/min [facility] Glomerular filtration rate ( GFR) estimationOrdered By: Nigel Rivera on 06-25-2024 Estimated GFR (MDRD) Non-Af Amer 84 mL/min >60 [facility] Comment on above: Non- GFR Calc Glucose Ql (U)Ordered By: Pedrito Rivear on 06-25-2024 Urine Glucose (UA) Normal mg/dl Normal [facility] Glucose measurementOrdered B y: Nigel Rivera on 06-25-2024 Glucose [Mass/Vol] 111 mg/dL High 74-106 [facility] Comment on above: Fasting Glucose resu lt from 100 to 125 mg/dL suggests IMPAIRED HOMEOSTASIS per A.D.A. criteria. Hematocrit Auto (Bld) [Volum e fraction]Ordered By: Nigel Rivera on 06-25-2024 Hematocrit (Bld) [Volume fraction] 39.1 % 37-47 [facility] Hemoglobin measurementOrdere d By: Nigel Rivera on 06-25-2024 Hemoglobin (Bld) [Mass/Vol] 12.9 g/dL 12.0-15.0 [facility] Immature granulocytes/100 WB C Auto (Bld)Ordered By: Nigel Rivera on 06-25-2024 Immature granulocytes/100 WBC (Bld) 0.400 % 0.0-0.9 [facility] Comment on above: IG% - Immature Granu locytes (promyelocytes, myelocytes and metamyelocytes) > 1% indicates that a LEFT SHIFT is Present. Ketones Test strip Ql (U)Ord ered By: Nigel Rivera on 06-25-2024 Ketones Ql (U) Negative Negative [facility] Laboratory - Chemistry and C hemistry - challengeOrdered By: Nigel Rivera on 06-25-2024 AST [Catalytic activity/Vol] 8 U/L Low 15-37 [facility] Lipaseon 06-25-2024 Lipase [Catalytic activity/Vol] 49 U/L Normal 13-75 [facility] Comment on above: Result Comment: Romeo daniels note: LIPASE revised reference range effective 22. New Lipase methodology. Expected to produce lower values than the previous assay method. NEW Reference Range: 13 - 75 U/L Performed By: #### L 100.0100, L500.4050, L501.2450 #### [facility] Laboratory [address] [place] [address], [id number] Lipase measurementOrdered By : Nigel Rivera on 06-25-2024 Lipase [Catalytic activity/Vol] 49 U/L 13-75 [facility] Comment on above: Please note:LIPASE r evised reference range effective 22. New Lipase methodology. Expected to produce lower values than the previous assay method. NEW Reference Range: 13 - 75 U/L Lymphocytes Auto (Unsp spec) [#/Vol]Ordered By: Nigel Rivera on 06-25-2024 Lymphocytes (Bld) [#/Vol] 5.98 10*3/uL High 0.83-4.51 [facility] Lymphocytes/100 WBC Auto (Un sp spec)Ordered By: Nigel Rivera on 06-25-2024 Lymphocytes/100 WBC (Bld) 46.9 % High 19-41 [facility] MCV (mean corpuscular volume ) determinationOrdered By: Nigel Rivera on 06-25-2024 MCV (RBC) [Entitic vol] 89.5 fL 81-99 [facility] Manual differential comment Nahid (Bld) [Interp]Ordered By: Nigel Rivera on 06-25-2024 Differential Comment SCANNED [facility] Mean corpuscular hemoglobin (MCH) determinationOrdered By: Nigel Rivera on 06-25-2024 MCH (RBC) [Entitic mass] 29.5 pg 27.0-32.0 [facility] Mean corpuscular hemoglobin concentration (MCHC) determinationOrdered By: Nigel Rivera on 06-25-2024 MCHC (RBC) [Mass/Vol] 33.0 g/dL 32-36 [facility] Mean platelet volume determi nationOrdered By: Nigel Rivera on 06-25-2024 Platelet mean volume (Bld) [Entitic vol] 11.3 fL 6.2-12.0 [facility] Microscopic analysis of urin e for red blood cells (RBC)Ordered By: Nigel Rivera on 06-25-2024 Urine RBC 0 SEEN /hpf 0-5 [facility] Monocyte percentageOrdered B y: Nigel Rivera on 06-25-2024 Monocytes/100 WBC (Bld) 6.0 % 0-10 [facility] Mucus LM Ql (Urine sed)Order ed By: Nigel Rivera on 06-25-2024 Mucus Ql (Urine sed) 1+ /hpf [facility] Neutrophil percentageOrdered By: Nigel Rivera on 06-25-2024 Neutrophils/100 WBC (Bld) 37.6 % Low 47-70 [facility] Nitrite Test strip Ql (U)Ord ered By: Nigel Rivera on 06-25-2024 Nitrite Ql (U) Negative Negative [facility] Nucleated red blood cell per centageOrdered By: Nigel Rivera on 06-25-2024 Nucleated RBC/100 WBC (Bld) [Ratio] 0 % 0-5 [facility] Platelet countOrdered By: Pedrito Rivera on 06-25-2024 Platelets (Bld) [#/Vol] 207 10*3/uL 150-450 [facility] Potassium measurementOrdered By: Nigel Rivera on 06-25-2024 Potassium [Moles/Vol] 4.1 mmol/L 3.5-5.1 [facility] ,Serum,hCG Quali.on 06-25-2024 HCG, SERUM QUAL Negative Normal [facility] Comment on above: Performed By: #### L 700.6800 #### [facility] Laboratory [address] [place], [address] Protein Test strip Ql (U)Ord ered By: Nigel Rivera on 06-25-2024 Protein Ql (U) 15 mg/dl High Negative [facility] RBC Auto (Bld) [#/Vol]Ordere d By: Nigel Rivera on 06-25-2024 RBC (Bld) [#/Vol] 4.37 10*6/uL 4.2-5.4 [facility] Serum anion gap measurementO rdered By: Nigel Rivera on 06-25-2024 Anion gap [Moles/Vol] 7 mmol/L 5-15 [facility] Serum globulin measurementOr dered By: Nigel Rivera on 06-25-2024 Globulin (S) [Mass/Vol] 2.7 g/dL 2.2-4.2 [facility] Serum or plasma alanine finley otransferase (ALT) measurementOrdered By: Nigel Rivera on 06-25-2024 ALT [Catalytic activity/Vol] 18 U/L 13-56 [facility] Serum or plasma albumin honey urement (mass/volume)Ordered By: Nigel Rivera on 06-25-2024 Albumin [Mass/Vol] 3.4 g/dL 3.2-5.0 [facility] Serum or plasma alkaline kalyani sphatase measurementOrdered By: Nigel Rivera on 06-25-2024 ALP [Catalytic activity/Vol] 59 U/L 45-117 [facility] Serum or plasma calcium honey urement (mass/volume)Ordered By: Nigel Rivera on 06-25-2024 Calcium [Mass/Vol] 9.2 mg/dL 8.5-10.1 [facility] Serum or plasma creatinine m easurement (mass/volume)Ordered By: Nigel Rivera on 06-25-2024 Creatinine [Mass/Vol] 0.87 mg/dL 0.55-1.02 [facility] Comment on above: The validity of the calculated GFR & GFRAA in patients over 70 years has not been determined. Clinical correlation is essential. Serum or plasma urea nitroge n measurement (mass/volume)Ordered By: Nigel Rivera on 06-25-2024 Urea nitrogen [Mass/Vol] 13 mg/dL 7-18 [facility] Sodium levelOrdered By: Nigel Rivera on 06-25-2024 Sodium [Moles/Vol] 140 mmol/L 136-145 [facility] Total proteinOrdered By: Freda Rivera on 06-25-2024 Protein [Mass/Vol] 6.1 g/dL Low 6.4-8.2 [facility] Urinalysis, Completeon 06-25 BACTERIA 3+ /hpf Normal None Seen [facility] Comment on above: Order Comment: CLEAN CATCH Performed By: #### L 400.0001 #### [facility] Laboratory [address] [place], [address] EPI,SQUAMOUS 50-100 SEEN Normal 5-10 [facility] Comment on above: Order Comment: CLEAN CATCH Performed By: #### L 400.0001 #### [facility] [address] [place], [address] Mucus Ql (Urine sed) 1+ /hpf Normal [facility] Comment on above: Order Comment: CLEAN CATCH Performed By: #### L 400.0001 #### [facility] [address] [place], [address] WBC 50-100 SEEN Normal 0-5 [facility] Comment on above: Order Comment: CLEAN CATCH Performed By: #### L 400.0001 #### [facility] [address] [place], [address] BILIRUBIN URINE Negative Normal Negative [facility] Comment on above: Order Comment: CLEAN CATCH Performed By: #### L 400.0001 #### [facility] [address] [place], [address] Clarity (U) Sl. Cloudy Normal Clear [facility] Comment on above: Order Comment: CLEAN CATCH Performed By: #### L 400.0001 #### [facility] [address] [place], [address] Color (U) Straw Normal Yellow [facility] Comment on above: Order Comment: CLEAN CATCH Performed By: #### L 400.0001 #### [facility] [address] [place], [address] GLUCOSE, UR Normal Normal Normal [facility] Comment on above: Order Comment: CLEAN CATCH Performed By: #### L 400.0001 #### [facility] [address] [place], [address] KETONE UR Negative Normal Negative [facility] Comment on above: Order Comment: CLEAN CATCH Performed By: #### L 400.0001 #### [facility] [address] [facility] [address] LEUK ESTERASE 100 /ul Abnormal Negative [facility] Comment on above: Order Comment: CLEAN CATCH Performed By: #### L 400.0001 #### [facility] [address] [place], [address] Nitrite Ql (U) Negative Normal Negative [facility] Comment on above: Order Comment: CLEAN CATCH Performed By: #### L 400.0001 #### [facility] [address] [place], [address] OCCULT BLOOD-UR Negative Normal Negative [facility] Comment on above: Order Comment: CLEAN CATCH Performed By: #### L 400.0001 #### [facility] [address] [place], [address] pH UR 6.0 Normal 5.0 - 8.0 [facility] Comment on above: Order Comment: CLEAN CATCH Performed By: #### L 400.0001 #### [facility] [address] [place], [address] PROT DIPSTX 15 mg/dl Abnormal Negative [facility] Comment on above: Order Comment: CLEAN CATCH Performed By: #### L 400.0001 #### [facility] [address] [place], [place], [id number] SP.GR. DIPSTX 1.030 Normal 1.002-1.030 [facility] Comment on above: Order Comment: CLEAN CATCH Performed By: #### L 400.0001 #### [facility] [address] [place], [place], [address] UROBILI 1 mg/dl Abnormal Normal [facility] Comment on above: Order Comment: CLEAN CATCH Performed By: #### L 400.0001 #### [facility] [address] [place], [place], [address] RBC 0 SEEN Normal 0-5 [facility] Comment on above: Order Comment: CLEAN CATCH Performed By: #### L 400.0001 #### [facility] [address] [place], [place], [address] Urine blood detectionOrdered By: Nigel Rivera on 06-25-2024 Urine Occult Blood Negative Negative [facility] Urine clarityOrdered By: Freda Rivera on 06-25-2024 Clarity (U) Sl. Cloudy Clear [facility] Urine color determinationOrd ered By: Nigel Rivera on 06-25-2024 Color (U) Straw Yellow [facility] Urine leukocyte esterase det ection by dipstickOrdered By: Nigel Rivera on 06-25-2024 Leukocyte esterase Test strip Ql (U) 100 /ul High Negative [facility] Urine pHOrdered By: Nigel del valle on 06-25-2024 pH (U) 6.0 [pH] 5.0 - 8.0 [facility] Urine sediment bacteria coun t by microscopy (number/high power field)Ordered By: Ngiel Rivera on 06-25-2024 Bacteria LM.HPF (Urine sed) [#/Area] 3 /[HPF] None Seen [facility] Urine specific gravity measu rementOrdered By: Nigel Rivera on 06-25-2024 Specific gravity (U) [Rel density] 1.030 1.002-1.030 [facility] Urobilinogen Ql (U)Ordered B y: Nigel Rivera on 06-25-2024 Urobilinogen (U) [Mass/Vol] 1 mg/dL High Normal [facility] White blood cell (WBC) count Ordered By: Nigel Rivera on 06-25-2024 WBC (Bld) [#/Vol] 12.7 10*3/uL High 4.4-11.0 [facility] White blood cell countOrdere d By: Nigel Rivera on 06-25-2024 Urine WBC 50-100 SEEN /hpf 0-5 [facility] CNPNon 05-20-2024 CNPN Telephone ([facility]) OTTONIEL OSMAN ([id number]) 2000 F Date Time Provider Department 05/20/24 JAGDISH METZGER [facility] During your visit today, we recorded the following information about you: Jagdish Metzger APRN.CNP 05/20/2024 7:18 AM Signed Please inform patient that STD panel was negative. Follow-up with MEDICAL STAFF MANAGER or PCP as needed. Jagdish Metzger APRN.Yolanda [...] Status:Closed by Cecilia GAITAN on 05/20/24 Normal [facility] C. trachomatis+N. gonorrhoea e DNA ANURADHA+probe Ql (Unsp spec)on 05-19-2024 C. trachomatis rRNA ANURADHA+probe Ql (Unsp spec) Not detected Normal Not detected [facility] Comment on above: Order Comment: Speci men Type: SWABOrdering Facility: [facility] Address: [address] [place] [address] Performed By: #### C VTV, 40290-4 ####[facility] LABCLIA [id number] [place] [address] [place] N. gonorrhoeae rRNA ANURADHA+probe Ql (Unsp spec) Not detected Normal Not detected [facility] Comment on above: Order Comment: Speci men Type: SWABOrdering Facility: [facility] Address: [address] [place] [address] Performed By: #### C VTV, 05031-2 ####[facility] LABIA [id number] [place] [address] [place] TRACEY/TRICHOMONAS NAATon 1 07-20-2023 C. glabrata RNA ANURADHA+probe Ql (Vag fld) Not detected Normal Not detected [facility] Comment on above: Order Comment: Speci men Type: SWABOrdering Facility: [facility] Address: [address] [place] [address] Performed By: #### C VTV, 77577-3 ####[facility] LABIA [id number] [place] [address] [place] Tracey sp DNA ANURADHA+probe Ql (Vag fld) Not detected Normal Not detected [facility] Comment on above: Order Comment: Speci men Type: SWABOrdering Facility: [facility] Address: [address] [place] [address] Result Comment: The Tracey species group target includes C. albicans, C. tropicalis, C. parapsilosis, and C. dubliniensis. Performed By: #### C VTV, 78594-2 ####[facility] LABIA [id number] [place] [address] [place] T. vaginalis DNA ANURADHA+probe Ql (Unsp spec) Not detected Normal Not detected [facility] Comment on above: Order Comment: Speci men Type: SWABOrdering Facility: [facility] Address: [address] [place] [address] Performed By: #### C VTV, 99189-7 ####[facility] LABCLIA [id number] [facility]ALSoledad [id number] VIL[place] [id number] [place] CNOVon 05-19-2024 CNOV Office Visit ([facility] ) OTTONIEL OSMAN ([id number]) 2000 F Date Time Provider Department 05/19/24 11:00 AM JESSE ARRIAZA [facility] During your visit today, we recorded the following information about you: Temperature Pulse Respiration Blood pressure 98.2 degrees 78/minute 22/minute 102/68 Weight 58.3 kg Jesse Arriaza PA-C 05/19/2024 11:32 AM Signed This note was created using [employer]. Subjective Ottoniel Osman is a 24 year [...] [Z11.3] Order(s):GONORRHEA/CHLA MYDIA NAAT [SQGCCT] Order #: [id number]. #:[id number] SYPHILIS TREPONEMAL W/REFLEX [SQSYPHTX] Order #: [id number] FUTURE HIV 1/2 COMBO WITH REFLEX TO DIFFERENTIATION [SQHIV12] Order #: [id number] FUTURE HEPATITIS C ANTIBODY IA WITH CONFIRMATION [NJOFFP9J] Order #: [id number] FUTURE HEPATITI (more content not included)... Normal [facility] HBV surface Ag Ser Qlon 05-09 HBV surface Ag Ql (S) Negative Normal Negative [facility] Comment on above: Order Comment: Speci men Type: BLOOD SPECIMENOrdering Facility: [facility] Address: [address] [place] [address] Performed By: #### 5 195-3, 22910-6, 84234-7 ####[facility] LABCLIA [id number] [place] [address] [place] HCV Ab Ser Qlon 05-19-2024 HCV Ab Ql (S) Negative Normal Negative [facility] Comment on above: Order Comment: Speci men Type: BLOOD SPECIMENOrdering Facility: [facility] Address: [address] [place] [address] Result Comment: The result suggests no evidence of active infection with Hepatitis C virus. Should recent infection be suspected, repeat testing may be considered 4-6 weeks after this draw. Performed By: #### 1 6128-1 ####[facility] LABIA [id number] [place] [address] [place] HIV 1+2 Ab IA Qlon 4 HIV 1 and 2 Ab IA.rapid Nom (S/P/Bld) Normal [facility] Comment on above: Order Comment: Speci men Type: BLOOD SPECIMENOrdering Facility: [facility] Address: [address] [place] [address] Result Comment: Test not indicated. Performed By: #### 5 195-3, 26349-3, 07024-5 ####[facility] [id number] [place] [address] [place] HIV 1+2 Ab+HIV1 p24 Ag IA Ql Non-Reactive Normal Nonreactive [facility] Comment on above: Order Comment: Speci men Type: BLOOD SPECIMENOrdering Facility: [facility] Address: [address] [place] [address] Performed By: #### 5 195-3, 58440-0, 00236-1 ####[facility] [id number] [place] [address] [place] HIV immunoassay testing algorithm interpretation (S/P/Bld) [Interp] Normal [facility] Comment on above: Order Comment: Speci men Type: BLOOD SPECIMENOrdering Facility: [facility] Address: [address] [place] [address] Result Comment: No e vidence of HIV-1 or HIV-2 infection. Should recent infection be suspected, repeat testing may be considered 2-3 weeks after this draw. Louisa Rev. Code 3701.243(E): This information has been [...] test results or diagnoses. Performed By: #### 5 195-3, 12881-5, 69714-5 ####[facility] LABCLIA [id number] [place] [id number] [place] Reagin and Treponema pallidu m IgG and IgM [Interp]on 05-19-2024 T. pallidum IgG+IgM IA Ql (S) Non-Reactive Normal Nonreactive [facility] Comment on above: Order Comment: Speci men Type: BLOOD SPECIMENOrdering Facility: [facility] Address: [address] [place] [address] Performed By: #### 5 195-3, 46719-6, 01318-2 ####[facility] LABIA [id number] [place] [address] [place] Reagin+T pallidum IgG+IgM Se rPl-Impon 05-19-2024 Reagin and Treponema pallidum IgG and IgM [Interp] Cannot exclude recent Treponemal infection if specimen collected within 7-10 days after appearance of suspect lesions or 2-3 weeks after an exposure. Clinical correlation is required. Normal [facility] Comment on above: Order Comment: Speci men Type: BLOOD SPECIMENOrdering Facility: [facility] Address: [address] [place] [address] Performed By: #### 5 195-3, 11420-7, 09724-2 ####[facility] LABIA [id number] [place] [id number] [place] UA DIP, URINE (POC)on 2023 BILIRUBIN UA (POCT) Negative Negative [facility] CLARITY UA (POCT) [facility] COLOR UA (POCT) [place] [facility] GLUCOSE UA (POCT) 100 mg/dL Abnormal Negative [facility] Hemoglobin Ql (U) Trace-intact Abnormal Negative [facility] Interpretation and review of laboratory results Abnormal [facility] KETONE UA (POCT) Trace Negative mg/dL [facility] LEUKOCYTES UA (POCT) Large Abnormal Negative [facility] NITRITE UA (POCT) Positive Abnormal Negative [facility] PH UA (POCT) 6.5 4.5 - 8.0 [facility] Protein Ql (U) 30 mg/dL Abnormal Negative [facility] SPECIFIC GRAVITY UA (POCT) 1.010 1.005 - 1.030 [facility] UROBILINOGEN UA (POCT) 2.0 Abnormal Normal E.U./d L [facility] Location:[facility], [address] [place] [address], [place], [place], [id number] [place] [address] POINT OF CARE [facility] Absolute lymphocyte countOrd ered By: Horace Frausto on 10-15-2023 Lymphocytes Auto (Unsp spec) [#/Vol] 1.89 10*3/uL 0.83-4.51 [facility] Automated lymphocyte count a s percentage of total leukocytesOrdered By: Horace Frausto on 10-15-2023 Lymphocytes/100 WBC Auto (Unsp spec) 12.7 % 19-41 [facility] Basophil percentageOrdered B y: Horace Frausto on 10-15-2023 Basophil percentage 0 SEEN /hpf 0-5 [facility] Basophils/100 WBC (Bld) 0.4 % 0-1 [facility] Bilirubin [Mass/Vol] 0.50 mg/dL 0.20-1.00 [facility] Comment on above: For patients on eltr ombopag therapy, use of Dimension Carrier TBIL is not recommended. Chloride [Moles/Vol] 110 mmol/L 98-107 [facility] Eosinophils/100 WBC (Bld) 2.0 % 0-5 [facility] Glucose [Mass/Vol] 116 mg/dL 74-106 [facility] Comment on above: Fasting Glucose resu lt from 100 to 125 mg/dL suggests IMPAIRED HOMEOSTASIS per A.D.A. criteria. Hemoglobin (Bld) [Mass/Vol] 13.9 g/dL 12.0-15.0 [facility] Monocytes/100 WBC (Bld) 3.5 % 0-10 [facility] Neutrophils (Bld) [#/Vol] 12.0 10*3/uL 2.0-7.7 [facility] Neutrophils/100 WBC (Bld) 81.0 % 47-70 [facility] Potassium [Moles/Vol] 3.7 mmol/L 3.5-5.1 [facility] Protein [Mass/Vol] 7.4 g/dL 6.4-8.2 [facility] Sodium [Moles/Vol] 139 mmol/L 136-145 [facility] WBC (Bld) [#/Vol] 14.9 10*3/uL 4.4-11.0 [facility] Bilirubin Test strip Ql (U)O rdered By: Horace Frausto on 10-15-2023 Bilirubin Ql (U) Negative Negative [facility] Determination of erythrocyte mean corpuscular volume (MCV)Ordered By: Horace Frausto on 10-15-2023 MCV (RBC) [Entitic vol] 88.7 fL 81-99 [facility] Erythrocyte distribution wid th ratioOrdered By: Horace Frausto on 10-15-2023 Erythrocyte distribution width (RBC) [Ratio] 12.4 % 11.6-14.6 [facility] Erythrocyte distribution wid th standard deviationOrdered By: Horace Frausto on 10-15-2023 Erythrocyte distribution width (RBC) [Entitic vol] 40.9 fL 35.1-43.9 [facility] Hematocrit Auto (Bld) [Volum e fraction]Ordered By: Horace Frausto on 10-15-2023 Hematocrit (Bld) [Volume fraction] 42.5 % 37-47 [facility] Immature granulocytes/100 WB C Auto (Bld)Ordered By: Horace Frausto on 10-15-2023 Immature granulocytes/100 WBC (Bld) 0.400 % 0.0-0.9 [facility] Comment on above: IG% - Immature Granu locytes (promyelocytes, myelocytes and metamyelocytes) > 1% indicates that a LEFT SHIFT is Present. Ketones Test strip Ql (U)Ord ered By: Horace Frausto on 10-15-2023 Ketones Ql (U) Negative Negative [facility] Laboratory - Chemistry and C hemistry - challengeOrdered By: Horace Frausto on 10-15-2023 Albumin/Globulin [Mass ratio] 1.2 {ratio} 0.9-2.4 [facility] ALP [Catalytic activity/Vol] 70 U/L 45-117 [facility] ALT [Catalytic activity/Vol] 17 U/L 13-56 [facility] CO2 [Moles/Vol] 24.0 mmol/L 21.0-32.0 [facility] Globulin (S) [Mass/Vol] 3.3 g/dL 2.2-4.2 [facility] Urea nitrogen/Creatinine [Mass ratio] 11.7 mg/mg 10-20 [facility] Laboratory - Hematology and Cell countsOrdered By: Horace Frausto on 10-15-2023 MCH (RBC) [Entitic mass] 29.0 pg 27.0-32.0 [facility] MCHC (RBC) [Mass/Vol] 32.7 g/dL 32-36 [facility] Nucleated RBC/100 WBC (Bld) [Ratio] 0 % 0-5 [facility] Platelet mean volume (Bld) [Entitic vol] 11.5 fL 6.2-12.0 [facility] Platelets (Bld) [#/Vol] 202 10*3/uL 150-450 [facility] Mucus LM Ql (Urine sed)Order ed By: Horace Frausto on 10-15-2023 Mucus Ql (Urine sed) 0 SEEN /hpf [facility] Nitrite Test strip Ql (U)Ord ered By: Horace Frausto on 10-15-2023 Nitrite Ql (U) Negative Negative [facility] No Panel InformationOrdered By: Horace Frausto on 10-15-2023 Urine RBC 0 SEEN /hpf 0-5 [facility] Estimated Creatinine Clearance Calc 79.69 ml/min [facility] Estimated GFR (MDRD) Amer 94 mL/min >60 [facility] Comment on above: GFR Calc Estimated GFR (MDRD) Non-Af Amer 78 mL/min >60 [facility] Comment on above: Non- GFR Calc Protein Test strip Ql (U)Ord ered By: Horace Frausto on 10-15-2023 Protein Ql (U) 30 mg/dl Negative [facility] RBC Auto (Bld) [#/Vol]Ordere d By: Horace Frausto on 10-15-2023 RBC (Bld) [#/Vol] 4.79 10*6/uL 4.2-5.4 [facility] Serum or plasma calcium honey urement (mass/volume)Ordered By: Horace Frausto on 10-15-2023 Calcium [Mass/Vol] 9.6 mg/dL 8.5-10.1 [facility] Serum or plasma choriogonado tropin detectionOrdered By: Horace Frausto on 10-15-2023 HCG ( test) Ql Negative [facility] Serum or plasma creatinine m easurement (mass/volume)Ordered By: Horace Frausto on 10-15-2023 Creatinine [Mass/Vol] 0.94 mg/dL 0.55-1.02 [facility] Comment on above: The validity of the calculated GFR & GFRAA in patients over 70 years has not been determined. Clinical correlation is essential. Serum or plasma urea nitroge n measurement (mass/volume)Ordered By: Horace Frausto on 10-15-2023 Urea nitrogen [Mass/Vol] 11 mg/dL 7-18 [facility] Squamous epithelial cells de tection in urine sediment by light microscopyOrdered By: Horace Frausto on 10-15-2023 Epithelial cells.squamous LM Ql (Urine sed) 0-5 SEEN /hpf 5-10 [facility] Thin prep Papanicolaou smear with manual screeningOrdered By: Horace Frausto on 10-15-2023 Thin prep Papanicolaou smear with manual screening 4.1 g/dL 3.2-5.0 [facility] Thin prep Papanicolaou smear with manual screening 11 U/L 15-37 [facility] Thin prep Papanicolaou smear with manual screening 5 5-15 [facility] Urine blood detectionOrdered By: Horace Frausto on 10-15-2023 RBC Ql (U) Negative Negative [facility] Urine clarityOrdered By: Rocky Frausto on 10-15-2023 Clarity (U) Sl. Cloudy Clear [facility] Urine color determinationOrd ered By: Horace Frausto on 10-15-2023 Color (U) Yellow Yellow [facility] Urine glucose detectionOrder ed By: Horace Frausto on 10-15-2023 Glucose Ql (U) Normal mg/dl Normal [facility] Urine leukocyte esterase det ection by dipstickOrdered By: Horace Frausto on 10-15-2023 Leukocyte esterase Test strip Ql (U) Negative Negative [facility] Urine pHOrdered By: Horace chen on 10-15-2023 pH (U) 6.5 [pH] 5.0 - 8.0 [facility] Urine sediment bacteria coun t by microscopy (number/high power field)Ordered By: Horace Frausto on 10-15-2023 Bacteria LM.HPF (Urine sed) [#/Area] 0 /[HPF] None Seen [facility] Urine specific gravity measu rementOrdered By: Horace Frausto on 10-15-2023 Specific gravity (U) [Rel density] 1.010 1.002-1.030 [facility] Urine urobilinogen measureme ntOrdered By: Horace Frausto on 10-15-2023 Urobilinogen Ql (U) Normal mg/dl Normal [facility] UA DIP, URINE (POC)on 2023 BILIRUBIN UA (POCT) Negative Negative [facility] CLARITY UA (POCT) Clear [facility] COLOR UA (POCT) Yellow [facility] GLUCOSE UA (POCT) Negative Negative mg/dL [facility] Hemoglobin Ql (U) Trace-intact Abnormal Negative [facility] Interpretation and review of laboratory results Abnormal [facility] KETONE UA (POCT) Negative Negative mg/dL [facility] LEUKOCYTES UA (POCT) Trace Abnormal Negative [facility] NITRITE UA (POCT) Positive Abnormal Negative [facility] PH UA (POCT) 6.0 4.5 - 8.0 [facility] Protein Ql (U) Trace Abnormal Negative mg/dL [facility] SPECIFIC GRAVITY UA (POCT) 1.020 1.005 - 1.030 [facility] UROBILINOGEN UA (POCT) 1.0 Normal E.U./d L [facility] Location:[facility], [address] [place] [address], [place], [place], [id number] [place] [address] POINT OF CARE [facility] Absolute lymphocyte countOrd ered By: Ever Hanks on 06-27-2023 Lymphocytes Auto (Unsp spec) [#/Vol] 3.46 10*3/uL 0.83-4.51 [facility] Automated lymphocyte count a s percentage of total leukocytesOrdered By: Ever Hanks on 06-27-2023 Lymphocytes/100 WBC Auto (Unsp spec) 38.9 % 19-41 [facility] Basophil percentageOrdered B y: Ever Hanks on 06-27-2023 Basophils/100 WBC (Bld) 0.9 % 0-1 [facility] Bilirubin [Mass/Vol] 0.20 mg/dL 0.20-1.00 [facility] Comment on above: For patients on eltr ombopag therapy, use of Dimension Carrier TBIL is not recommended. Chloride [Moles/Vol] 113 mmol/L 98-107 [facility] Eosinophils/100 WBC (Bld) 8.8 % 0-5 [facility] Glucose [Mass/Vol] 87 mg/dL 74-106 [facility] Hemoglobin (Bld) [Mass/Vol] 12.7 g/dL 12.0-15.0 [facility] Monocytes/100 WBC (Bld) 6.7 % 0-10 [facility] Neutrophils (Bld) [#/Vol] 4.0 10*3/uL 2.0-7.7 [facility] Neutrophils/100 WBC (Bld) 44.4 % 47-70 [facility] Potassium [Moles/Vol] 4.1 mmol/L 3.5-5.1 [facility] Protein [Mass/Vol] 6.5 g/dL 6.4-8.2 [facility] Sodium [Moles/Vol] 142 mmol/L 136-145 [facility] WBC (Bld) [#/Vol] 8.9 10*3/uL 4.4-11.0 [facility] Basophil percentage 0-5 SEEN /hpf 0-5 [facility] Bilirubin Test strip Ql (U)O rdered By: Ever Hanks on 06-27-2023 Bilirubin Ql (U) 1 mg/dL Negative [facility] Comment on above: COLOR OF URINE MAY A FFECT DIPSTICK RESULTS. Determination of erythrocyte mean corpuscular volume (MCV)Ordered By: Ever Hanks on 06-27-2023 MCV (RBC) [Entitic vol] 88.9 fL 81-99 [facility] Erythrocyte distribution wid th ratioOrdered By: Ever Hanks on 06-27-2023 Erythrocyte distribution width (RBC) [Ratio] 12.2 % 11.6-14.6 [facility] Erythrocyte distribution wid th standard deviationOrdered By: Ever Hanks on 06-27-2023 Erythrocyte distribution width (RBC) [Entitic vol] 39.9 fL 35.1-43.9 [facility] Hematocrit Auto (Bld) [Volum e fraction]Ordered By: Ever Hanks on 06-27-2023 Hematocrit (Bld) [Volume fraction] 38.5 % 37-47 [facility] Immature granulocytes/100 WB C Auto (Bld)Ordered By: Ever Hanks on 06-27-2023 Immature granulocytes/100 WBC (Bld) 0.300 % 0.0-0.9 [facility] Comment on above: IG% - Immature Granu locytes (promyelocytes, myelocytes and metamyelocytes) > 1% indicates that a LEFT SHIFT is Present. Ketones Test strip Ql (U)Ord ered By: Ever Hanks on 06-27-2023 Ketones Ql (U) 5 mg/dl Negative [facility] Laboratory - Chemistry and C hemistry - challengeOrdered By: Ever Hanks on 06-27-2023 Albumin/Globulin [Mass ratio] 1.2 {ratio} 0.9-2.4 [facility] ALP [Catalytic activity/Vol] 62 U/L 45-117 [facility] ALT [Catalytic activity/Vol] 15 U/L 13-56 [facility] CO2 [Moles/Vol] 26.0 mmol/L 21.0-32.0 [facility] Globulin (S) [Mass/Vol] 2.9 g/dL 2.2-4.2 [facility] Lipase [Catalytic activity/Vol] 28 U/L 13-75 [facility] Comment on above: Please note:LIPASE r evised reference range effective 22. New Lipase methodology. Expected to produce lower values than the previous assay method. NEW Reference Range: 13 - 75 U/L Urea nitrogen/Creatinine [Mass ratio] 9.2 mg/mg 10-20 [facility] Laboratory - Hematology and Cell countsOrdered By: Ever Hanks on 06-27-2023 MCH (RBC) [Entitic mass] 29.3 pg 27.0-32.0 [facility] MCHC (RBC) [Mass/Vol] 33.0 g/dL 32-36 [facility] Nucleated RBC/100 WBC (Bld) [Ratio] 0 % 0-5 [facility] Platelets (Bld) [#/Vol] 188 10*3/uL 150-450 [facility] Mucus LM Ql (Urine sed)Order ed By: Ever Hanks on 06-27-2023 Mucus Ql (Urine sed) 0 SEEN /hpf [facility] Nitrite Test strip Ql (U)Ord ered By: Ever Hanks on 06-27-2023 Nitrite Ql (U) Negative Negative [facility] No Panel InformationOrdered By: Ever Hanks on 06-27-2023 Estimated Creatinine Clearance Calc 76.44 ml/min [facility] Estimated GFR (MDRD) Amer 89 mL/min >60 [facility] Comment on above: GFR Calc Estimated GFR (MDRD) Non-Af Amer 74 mL/min >60 [facility] Comment on above: Non- GFR Calc Urine RBC 0 SEEN /hpf 0-5 [facility] Platelet mean volume Rob-Ec ker (Bld) [Entitic vol]Ordered By: Ever Hanks on 06-27-2023 Platelet mean volume (Bld) [Entitic vol] 11.6 fL 6.2-12.0 [facility] Protein Test strip Ql (U)Ord ered By: Ever Hanks on 06-27-2023 Protein Ql (U) 30 mg/dl Negative [facility] RBC Auto (Bld) [#/Vol]Ordere d By: Ever Hanks on 06-27-2023 RBC (Bld) [#/Vol] 4.33 10*6/uL 4.2-5.4 [facility] Serum or plasma calcium honey urement (mass/volume)Ordered By: Ever Hanks on 06-27-2023 Calcium [Mass/Vol] 8.8 mg/dL 8.5-10.1 [facility] Serum or plasma choriogonado tropin detectionOrdered By: Ever Hanks on 06-27-2023 HCG ( test) Ql Negative [facility] Serum or plasma creatinine m easurement (mass/volume)Ordered By: Ever Hanks on 06-27-2023 Creatinine [Mass/Vol] 0.98 mg/dL 0.55-1.02 [facility] Comment on above: The validity of the calculated GFR & GFRAA in patients over 70 years has not been determined. Clinical correlation is essential. Serum or plasma urea nitroge n measurement (mass/volume)Ordered By: Ever Hanks on 06-27-2023 Urea nitrogen [Mass/Vol] 9 mg/dL 7-18 [facility] Squamous epithelial cells de tection in urine sediment by light microscopyOrdered By: Ever Hanks on 06-27-2023 Epithelial cells.squamous LM Ql (Urine sed) 5-10 SEEN /hpf 5-10 [facility] Thin prep Papanicolaou smear with manual screeningOrdered By: Ever Hanks on 06-27-2023 Thin prep Papanicolaou smear with manual screening 3.6 g/dL 3.2-5.0 [facility] Thin prep Papanicolaou smear with manual screening 8 U/L 15-37 [facility] Thin prep Papanicolaou smear with manual screening 3 5-15 [facility] Urine blood detectionOrdered By: Ever Hanks on 06-27-2023 RBC Ql (U) 10 /ul Negative [facility] Urine clarityOrdered By: Raúl Hanks on 06-27-2023 Clarity (U) Clear Clear [facility] Urine color determinationOrd ered By: Ever Hanks on 06-27-2023 Color (U) Yellow Yellow [facility] Urine glucose detectionOrder ed By: Ever Hanks on 06-27-2023 Glucose Ql (U) Normal mg/dl Normal [facility] Urine leukocyte esterase det ection by dipstickOrdered By: Ever Hanks on 06-27-2023 Leukocyte esterase Test strip Ql (U) 25 /ul Negative [facility] Urine pHOrdered By: Ever woodsno on 06-27-2023 pH (U) 6.0 [pH] 5.0 - 8.0 [facility] Urine sediment bacteria coun t by microscopy (number/high power field)Ordered By: Ever Hanks on 06-27-2023 Bacteria LM.HPF (Urine sed) [#/Area] 0 /[HPF] None Seen [facility] Urine specific gravity measu rementOrdered By: Ever Hanks on 06-27-2023 Specific gravity (U) [Rel density] 1.020 1.002-1.030 [facility] Urine urobilinogen measureme ntOrdered By: Ever Hanks on 06-27-2023 Urobilinogen Ql (U) 4 mg/dl Normal [facility] UA DIP, URINE (POC)on 2022 BILIRUBIN UA (POCT) Negative Negative [facility] CLARITY UA (POCT) Clear [facility] COLOR UA (POCT) Yellow [facility] GLUCOSE UA (POCT) Negative Negative mg/dL [facility] Hemoglobin Ql (U) Negative Negative [facility] KETONE UA (POCT) Negative Negative mg/dL [facility] LEUKOCYTES UA (POCT) Trace Abnormal Negative [facility] NITRITE UA (POCT) Negative [facility] PH UA (POCT) 6.5 4.5 - 8.0 [facility] Protein Ql (U) Negative Negative mg/dL [facility] SPECIFIC GRAVITY UA (POCT) >=1.030 1.005 - 1.030 [facility] UROBILINOGEN UA (POCT) 0.2 E.U./dL Normal E.U./ dL [facility] XR RIBS/CHEST 3V AP RIB/OBLS /CXR RIGHTon 03-03-2023 [facility] XR Ribs - right Views and Ch est PAon 03-03-2023 IMPRESSION: Possible nondisplaced fracture of the lateral right seventh rib. No pneumothorax. 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 No pneumothorax. 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 Transcribe Date/Time: Mar 03 2023 4:41P Dictated by : MARGARET SNYDER MD This examination was interpreted and the report reviewed and electronically signed by: MARGARET SNYDER MD on Mar 03 2023 4:44PM EST [facility] Radiology Study observation (narrative) [facility] XR Ribs - right Views and Ch est PAOrdered By: [facility] Provider on 03-03-2023 [facility] Absolute lymphocyte countOrd ered By: Kirby Camara on 02-09-2023 Lymphocytes Auto (Unsp spec) [#/Vol] 2.33 10*3/uL 0.83-4.51 [facility] Basophil percentageOrdered B y: Kirby Camara on 02-09-2023 Basophil percentage 0-5 SEEN /hpf 0-5 [facility] Basophils/100 WBC (Bld) 0.5 % 0-1 [facility] Bilirubin [Mass/Vol] 0.70 mg/dL 0.20-1.00 [facility] Comment on above: For patients on eltr ombopag therapy, use of Dimension Carrier TBIL is not recommended. Chloride [Moles/Vol] 110 mmol/L 98-107 [facility] Eosinophils/100 WBC (Bld) 6.8 % 0-5 [facility] Glucose [Mass/Vol] 91 mg/dL 74-106 [facility] Neutrophils (Bld) [#/Vol] 6.4 10*3/uL 2.0-7.7 [facility] Neutrophils/100 WBC (Bld) 63.5 % 47-70 [facility] Potassium [Moles/Vol] 3.8 mmol/L 3.5-5.1 [facility] Protein [Mass/Vol] 7.0 g/dL 6.4-8.2 [facility] Sodium [Moles/Vol] 140 mmol/L 136-145 [facility] WBC (Bld) [#/Vol] 10.1 10*3/uL 4.4-11.0 [facility] Beta hCG serum qualOrdered B y: Kirby Camara on 02-09-2023 Beta HCG ( test) Ql Negative [facility] Bilirubin Test strip Ql (U)O rdered By: Kirby Camara on 02-09-2023 Bilirubin Ql (U) 1 mg/dL Negative [facility] Comment on above: COLOR OF URINE MAY A FFECT DIPSTICK RESULTS. Blood erythrocytes count (nu mber/volume)Ordered By: Kirby Camara on 02-09-2023 RBC (Bld) [#/Vol] 4.94 10*6/uL 4.2-5.4 [facility] Blood hemoglobin measurement (mass/volume)Ordered By: Kirby Camara on 02-09-2023 Hemoglobin (Bld) [Mass/Vol] 14.6 g/dL 12.0-15.0 [facility] Blood lymphocytes/100 leukoc ytesOrdered By: Kirby Camara on 02-09-2023 Lymphocytes/100 WBC (Bld) 23.0 % 19-41 [facility] Blood monocytes/100 leukocyt esOrdered By: Kirby Camara on 02-09-2023 Monocytes/100 WBC (Bld) 5.8 % 0-10 [facility] Blood platelet mean volumeOr dered By: Kirby Camara on 02-09-2023 Platelet mean volume (Bld) [Entitic vol] 11.1 fL 6.2-12.0 [facility] Determination of erythrocyte mean corpuscular volume (MCV)Ordered By: Kirby Camara on 02-09-2023 MCV (RBC) [Entitic vol] 88.5 fL 81-99 [facility] Direct bilirubinOrdered By: Kirby Camara on 02-09-2023 Bilirubin.direct [Mass/Vol] 0.18 mg/dL 0.00-0.30 [facility] Hematocrit Auto (Bld) [Volum e fraction]Ordered By: Kirby Camara on 02-09-2023 Hematocrit (Bld) [Volume fraction] 43.7 % 37-47 [facility] Ketones Test strip Ql (U)Ord ered By: Kirby Camara on 02-09-2023 Ketones Ql (U) 5 mg/dl Negative [facility] Laboratory - Chemistry and C hemistry - challengeOrdered By: Kirby Camara on 02-09-2023 ALP [Catalytic activity/Vol] 70 U/L 45-117 [facility] ALT [Catalytic activity/Vol] 16 U/L 13-56 [facility] CO2 [Moles/Vol] 26.0 mmol/L 21.0-32.0 [facility] Globulin (S) [Mass/Vol] 3.1 g/dL 2.2-4.2 [facility] Lipase [Catalytic activity/Vol] 66 U/L 13-75 [facility] Comment on above: Please note:LIPASE r evised reference range effective 22. New Lipase methodology. Expected to produce lower values than the previous assay method. NEW Reference Range: 13 - 75 U/L Urea nitrogen/Creatinine [Mass ratio] 12.3 mg/mg 10-20 [facility] Laboratory - Hematology and Cell countsOrdered By: Kirby Camara on 02-09-2023 Erythrocyte distribution width (RBC) [Entitic vol] 40.5 fL 35.1-43.9 [facility] Erythrocyte distribution width (RBC) [Ratio] 12.5 % 11.6-14.6 [facility] Immature granulocytes/100 WBC (Bld) 0.400 % 0.0-0.9 [facility] Comment on above: IG% - Immature Granu locytes (promyelocytes, myelocytes and metamyelocytes) > 1% indicates that a LEFT SHIFT is Present. MCH (RBC) [Entitic mass] 29.6 pg 27.0-32.0 [facility] Nucleated RBC/100 WBC (Bld) [Ratio] 0 % 0-5 [facility] [Mass/Vol]Or dered By: Kirby Camara on 02-09-2023 MCHC (RBC) [Mass/Vol] 33.4 g/dL 32-36 [facility] Mucus LM Ql (Urine sed)Order ed By: Kirby Camara on 02-09-2023 Mucus Ql (Urine sed) 0 SEEN /hpf [facility] Nitrite Test strip Ql (U)Ord ered By: Kiryb Camara on 02-09-2023 Nitrite Ql (U) Negative Negative [facility] No Panel InformationOrdered By: Kirby Camara on 02-09-2023 Estimated Creatinine Clearance Calc 77.10 ml/min [facility] Estimated GFR (MDRD) Amer 90 mL/min >60 [facility] Comment on above: GFR Calc Estimated GFR (MDRD) Non-Af Amer 74 mL/min >60 [facility] Comment on above: Non- GFR Calc Platelets bldOrdered By: Red Camara on 02-09-2023 Platelets (Bld) [#/Vol] 186 10*3/uL 150-450 [facility] Protein Test strip Ql (U)Ord ered By: Kirby Camara on 02-09-2023 Protein Ql (U) 30 mg/dl Negative [facility] Serum or plasma albumin honey urement (mass/volume)Ordered By: Kirby Camara on 02-09-2023 Albumin [Mass/Vol] 3.9 g/dL 3.2-5.0 [facility] Serum or plasma calcium honey urement (mass/volume)Ordered By: Kirby Camara on 02-09-2023 Calcium [Mass/Vol] 9.1 mg/dL 8.5-10.1 [facility] Serum or plasma creatinine m easurement (mass/volume)Ordered By: Kirby Camara on 02-09-2023 Creatinine [Mass/Vol] 0.98 mg/dL 0.55-1.02 [facility] Comment on above: The validity of the calculated GFR & GFRAA in patients over 70 years has not been determined. Clinical correlation is essential. Serum or plasma urea nitroge n measurement (mass/volume)Ordered By: Kirby Camara on 02-09-2023 Urea nitrogen [Mass/Vol] 12 mg/dL 7-18 [facility] Squamous epithelial cells de tection in urine sediment by light microscopyOrdered By: Kirby Camara on 02-09-2023 Epithelial cells.squamous LM Ql (Urine sed) 0-5 SEEN /hpf 5-10 [facility] Thin prep Papanicolaou smear with manual screeningOrdered By: Kirby Camara on 02-09-2023 Thin prep Papanicolaou smear with manual screening 9 U/L 15-37 [facility] Thin prep Papanicolaou smear with manual screening 4 5-15 [facility] Urine blood detectionOrdered By: Kirby Camara on 02-09-2023 RBC Ql (U) Negative Negative [facility] RBC Ql (U) 0 SEEN /hpf 0-5 [facility] Urine clarityOrdered By: Red Camara on 02-09-2023 Clarity (U) Clear Clear [facility] Urine color determinationOrd ered By: Kirby Camara on 02-09-2023 Color (U) Yellow Yellow [facility] Urine glucose detectionOrder ed By: Kirby Camara on 02-09-2023 Glucose Ql (U) Normal mg/dl Normal [facility] Urine leukocyte esterase det ection by dipstickOrdered By: Kirby Camara on 02-09-2023 Leukocyte esterase Test strip Ql (U) 25 /ul Negative [facility] Urine pHOrdered By: Kirby michael on 02-09-2023 pH (U) 6.0 [pH] 5.0 - 8.0 [facility] Urine sediment bacteria coun t by microscopy (number/high power field)Ordered By: Kirby Camara on 02-09-2023 Bacteria LM.HPF (Urine sed) [#/Area] 0 /[HPF] None Seen [facility] Urine specific gravity measu rementOrdered By: Kirby Camara on 02-09-2023 Specific gravity (U) [Rel density] 1.020 1.002-1.030 [facility] Urobilinogen Auto test strip Ql (U)Ordered By: Kirby Camara on 02-09-2023 Urobilinogen Ql (U) Normal mg/dl Normal [facility] BACTERIAL VAGINOSIS NAATon 0 01-16-2023 Lactobacillus crispatus+gasseri+estephanie enii + Gardnerella vaginalis + Atopobium vaginae rRNA ANURADHA+probe Ql (Vag fld) Negative Negative for bacterial vaginosis [facility] TRACEY/TRICHOMONAS NAATon 0 01-16-2023 C. glabrata RNA ANURADHA+probe Ql (Vag fld) Negative Negative for Tracey glabrata [facility] Tracey sp DNA ANUARDHA+probe Ql (Vag fld) Negative Negative for Tracey species [facility] T. vaginalis DNA ANURADHA+probe Ql (Unsp spec) Negative Negative for Trichomonas vaginalis by amplification [facility] UA DIP, URINE (POC)on 2022 BILIRUBIN UA (POCT) Small Abnormal Negative [facility] CLARITY UA (POCT) Cloudy [facility] COLOR UA (POCT) Dark yellow [facility] GLUCOSE UA (POCT) Negative Negative mg/dL [facility] HEMOGLOBIN/BLOOD UA (POCT) Negative Negative [facility] KETONE UA (POCT) Trace Negative mg/dL [facility] LEUKOCYTES UA (POCT) Trace Abnormal Negative [facility] NITRITE UA (POCT) Negative Negative [facility] PH UA (POCT) 6.0 4.5 - 8.0 [facility] Protein Ql (U) 30 mg/dL Abnormal Negative mg/dL [facility] SPECIFIC GRAVITY UA (POCT) 1.025 1.005 - 1.030 [facility] UROBILINOGEN UA (POCT) 1.0 E.U./dL Normal E.U./ dL [facility] Absolute lymphocyte countOrd ered By: Dr. Sesay on 10-15-2022 Lymphocytes Auto (Unsp spec) [#/Vol] 2.03 10*3/uL 0.83-4.51 [facility] Basophil percentageOrdered B y: Dr. Sesay on 10-15-2022 Basophils/100 WBC (Bld) 0.4 % 0-1 [facility] Chloride [Moles/Vol] 110 mmol/L 98-107 [facility] Eosinophils/100 WBC (Bld) 2.5 % 0-5 [facility] Glucose [Mass/Vol] 70 mg/dL 74-106 [facility] Neutrophils (Bld) [#/Vol] 5.5 10*3/uL 2.0-7.7 [facility] Neutrophils/100 WBC (Bld) 64.6 % 47-70 [facility] Potassium [Moles/Vol] 3.6 mmol/L 3.5-5.1 [facility] Sodium [Moles/Vol] 138 mmol/L 136-145 [facility] WBC (Bld) [#/Vol] 8.5 10*3/uL 4.4-11.0 [facility] Blood erythrocytes count (nu mber/volume)Ordered By: Dr. Sesay on 10-15-2022 RBC (Bld) [#/Vol] 3.78 10*6/uL 4.2-5.4 [facility] Blood hemoglobin measurement (mass/volume)Ordered By: Dr. Sesay on 10-15-2022 Hemoglobin (Bld) [Mass/Vol] 11.1 g/dL 12.0-15.0 [facility] Blood lymphocytes/100 leukoc ytesOrdered By: Dr. Sesay on 10-15-2022 Lymphocytes/100 WBC (Bld) 23.8 % 19-41 [facility] Blood monocytes/100 leukocyt esOrdered By: Dr. Sesay on 10-15-2022 Monocytes/100 WBC (Bld) 8.5 % 0-10 [facility] Blood platelet mean volumeOr dered By: Dr. Sesay on 10-15-2022 Platelet mean volume (Bld) [Entitic vol] 11.7 fL 6.2-12.0 [facility] Determination of erythrocyte mean corpuscular volume (MCV)Ordered By: Dr. Sesay on 10-15-2022 MCV (RBC) [Entitic vol] 89.2 fL 81-99 [facility] Hematocrit Auto (Bld) [Volum e fraction]Ordered By: Dr. Sesay on 10-15-2022 Hematocrit (Bld) [Volume fraction] 33.7 % 37-47 [facility] Laboratory - Chemistry and C hemistry - challengeOrdered By: Dr. Sesay on 10-15-2022 CO2 [Moles/Vol] 19.0 mmol/L 21.0-32.0 [facility] Urea nitrogen/Creatinine [Mass ratio] 9.1 mg/mg 10-20 [facility] Laboratory - Hematology and Cell countsOrdered By: Dr. Sesay on 10-15-2022 Erythrocyte distribution width (RBC) [Entitic vol] 40.7 fL 35.1-43.9 [facility] Erythrocyte distribution width (RBC) [Ratio] 12.3 % 11.6-14.6 [facility] Immature granulocytes/100 WBC (Bld) 0.200 % 0.0-0.9 [facility] Comment on above: IG% - Immature Granu locytes (promyelocytes, myelocytes and metamyelocytes) > 1% indicates that a LEFT SHIFT is Present. MCH (RBC) [Entitic mass] 29.4 pg 27.0-32.0 [facility] Nucleated RBC/100 WBC (Bld) [Ratio] 0 % 0-5 [facility] MCHC Auto (RBC) [Mass/Vol]Or dered By: Dr. Sesay on 10-15-2022 MCHC (RBC) [Mass/Vol] 32.9 g/dL 32-36 [facility] No Panel InformationOrdered By: Dr. Sesay on 10-15-2022 Estimated Creatinine Clearance Calc 114.48 ml/min [facility] Estimated GFR (MDRD) Amer 143 mL/min >60 [facility] Comment on above: GFR Calc Estimated GFR (MDRD) Non-Af Amer 118 mL/min >60 [facility] Comment on above: Non- GFR Calc Platelets bldOrdered By: Dr. Sesay on 10-15-2022 Platelets (Bld) [#/Vol] 170 10*3/uL 150-450 [facility] Serum or plasma calcium honey urement (mass/volume)Ordered By: Dr. Sesay on 10-15-2022 Calcium [Mass/Vol] 8.7 mg/dL 8.5-10.1 [facility] Serum or plasma creatinine m easurement (mass/volume)Ordered By: Dr. Sesay on 10-15-2022 Creatinine [Mass/Vol] 0.66 mg/dL 0.55-1.02 [facility] Comment on above: The validity of the calculated GFR & GFRAA in patients over 70 years has not been determined. Clinical correlation is essential. Serum or plasma urea nitroge n measurement (mass/volume)Ordered By: Dr. Sesay on 10-15-2022 Urea nitrogen [Mass/Vol] 6 mg/dL 7-18 [facility] Thin prep Papanicolaou smear with manual screeningOrdered By: Dr. Sesay on 10-15-2022 Thin prep Papanicolaou smear with manual screening 9 5-15 [facility] Erythrocyte sedimentation ra teOrdered By: Dr. Sesay on 10-13-2022 ESR (Bld) [Velocity] 7 mm/h 0-30 [facility] Absolute lymphocyte countOrd ered By: Dr. Lux on 10-11-2022 Lymphocytes Auto (Unsp spec) [#/Vol] 2.77 10*3/uL 0.83-4.51 [facility] Basophil percentageOrdered B y: Dr. Lux on 10-11-2022 Basophils/100 WBC (Bld) 0.6 % 0-1 [facility] Chloride [Moles/Vol] 107 mmol/L 98-107 [facility] Eosinophils/100 WBC (Bld) 5.7 % 0-5 [facility] Glucose [Mass/Vol] 96 mg/dL 74-106 [facility] Neutrophils (Bld) [#/Vol] 7.4 10*3/uL 2.0-7.7 [facility] Neutrophils/100 WBC (Bld) 63.2 % 47-70 [facility] Potassium [Moles/Vol] 3.8 mmol/L 3.5-5.1 [facility] Sodium [Moles/Vol] 138 mmol/L 136-145 [facility] WBC (Bld) [#/Vol] 11.6 10*3/uL 4.4-11.0 [facility] Beta hCG serum qualOrdered B y: Dr. Lux on 10-11-2022 Beta HCG ( test) Ql Negative [facility] Blood erythrocytes count (nu mber/volume)Ordered By: Dr. Lux on 10-11-2022 RBC (Bld) [#/Vol] 4.57 10*6/uL 4.2-5.4 [facility] Blood hemoglobin measurement (mass/volume)Ordered By: Dr. Lux on 10-11-2022 Hemoglobin (Bld) [Mass/Vol] 13.3 g/dL 12.0-15.0 [facility] Blood lymphocytes/100 leukoc ytesOrdered By: Dr. Lux on 10-11-2022 Lymphocytes/100 WBC (Bld) 23.8 % 19-41 [facility] Blood monocytes/100 leukocyt esOrdered By: Dr. Lux on 10-11-2022 Monocytes/100 WBC (Bld) 6.4 % 0-10 [facility] Blood platelet mean volumeOr dered By: Dr. Lux on 10-11-2022 Platelet mean volume (Bld) [Entitic vol] 12.0 fL 6.2-12.0 [facility] Determination of erythrocyte mean corpuscular volume (MCV)Ordered By: Dr. Lux on 10-11-2022 MCV (RBC) [Entitic vol] 88.6 fL 81-99 [facility] Hematocrit Auto (Bld) [Volum e fraction]Ordered By: Dr. Lux on 10-11-2022 Hematocrit (Bld) [Volume fraction] 40.5 % 37-47 [facility] Laboratory - Chemistry and C hemistry - challengeOrdered By: Dr. Lux on 10-11-2022 CO2 [Moles/Vol] 23.0 mmol/L 21.0-32.0 [facility] Urea nitrogen/Creatinine [Mass ratio] 10.9 mg/mg 10-20 [facility] Laboratory - Hematology and Cell countsOrdered By: Dr. Lux on 10-11-2022 Erythrocyte distribution width (RBC) [Entitic vol] 41.2 fL 35.1-43.9 [facility] Erythrocyte distribution width (RBC) [Ratio] 12.7 % 11.6-14.6 [facility] Immature granulocytes/100 WBC (Bld) 0.300 % 0.0-0.9 [facility] Comment on above: IG% - Immature Granu locytes (promyelocytes, myelocytes and metamyelocytes) > 1% indicates that a LEFT SHIFT is Present. MCH (RBC) [Entitic mass] 29.1 pg 27.0-32.0 [facility] Nucleated RBC/100 WBC (Bld) [Ratio] 0 % 0-5 [facility] Auto (RBC) [Mass/Vol]Or dered By: Dr. Lux on 10-11-2022 MCHC (RBC) [Mass/Vol] 32.8 g/dL 32-36 [facility] No Panel InformationOrdered By: Dr. Lux on 10-11-2022 Estimated Creatinine Clearance Calc 74.81 ml/min [facility] Estimated GFR (MDRD) Amer 87 mL/min >60 [facility] Comment on above: GFR Calc Estimated GFR (MDRD) Non-Af Amer 72 mL/min >60 [facility] Comment on above: Non- GFR Calc Platelets bldOrdered By: Dr. Lux on 10-11-2022 Platelets (Bld) [#/Vol] 185 10*3/uL 150-450 [facility] Serum or plasma calcium honey urement (mass/volume)Ordered By: Dr. Lux on 10-11-2022 Calcium [Mass/Vol] 9.1 mg/dL 8.5-10.1 [facility] Serum or plasma creatinine m easurement (mass/volume)Ordered By: Dr. Lux on 10-11-2022 Creatinine [Mass/Vol] 1.01 mg/dL 0.55-1.02 [facility] Comment on above: The validity of the calculated GFR & GFRAA in patients over 70 years has not been determined. Clinical correlation is essential. Serum or plasma urea nitroge n measurement (mass/volume)Ordered By: Dr. Lux on 10-11-2022 Urea nitrogen [Mass/Vol] 11 mg/dL 7-18 [facility] Thin prep Papanicolaou smear with manual screeningOrdered By: Dr. Lux on 10-11-2022 Thin prep Papanicolaou smear with manual screening 8 5-15 [facility] UA DIP, URINE (POC)on 2021 BILIRUBIN UA (POCT) Negative Negative [facility] CLARITY UA (POCT) Clear [facility] COLOR UA (POCT) Yellow [facility] GLUCOSE UA (POCT) Negative Negative mg/dL [facility] HEMOGLOBIN/BLOOD UA (POCT) Negative Negative [facility] KETONE UA (POCT) Negative Negative mg/dL [facility] LEUKOCYTES UA (POCT) Negative Negative [facility] NITRITE UA (POCT) Negative Negative [facility] PH UA (POCT) 8.0 4.5 - 8.0 [facility] Protein Ql (U) Negative Negative mg/dL [facility] SPECIFIC GRAVITY UA (POCT) 1.020 1.005 - 1.030 [facility] UROBILINOGEN UA (POCT) 0.2 E.U./dL Normal E.U./ dL [facility] HCG QUAL UR B/Oon 01-01-2022 status Negative neg - pos [facility] Quality Check Yes [facility] Absolute lymphocyte counton 11-18-2021 Lymphocytes Auto (Unsp spec) [#/Vol] 2.56 10*3/uL 0.83-4.51 [facility] Work Phone: Basophil percentageon 2021 Basophils/100 WBC (Bld) 0.4 % 0-1 [facility] Work Phone: Bilirubin [Mass/Vol] 0.40 mg/dL 0.20-1.00 [facility] Work Phone: Comment on above: For patients on eltr ombopag therapy, use of Dimension Carrier TBIL is not recommended. Chloride [Moles/Vol] 108 mmol/L 98-107 [facility] Work Phone: Eosinophils/100 WBC (Bld) 1.3 % 0-5 [facility] Work Phone: Glucose [Mass/Vol] 78 mg/dL 74-106 [facility] Work Phone: Neutrophils (Bld) [#/Vol] 10.1 10*3/uL 2.0-7.7 [facility] Work Phone: Neutrophils/100 WBC (Bld) 73.5 % 47-70 [facility] Work Phone: Potassium [Moles/Vol] 3.9 mmol/L 3.5-5.1 [facility] Work Phone: Protein [Mass/Vol] 6.3 g/dL 6.4-8.2 [facility] Work Phone: Sodium [Moles/Vol] 137 mmol/L 136-145 [facility] Work Phone: WBC (Bld) [#/Vol] 13.7 10*3/uL 4.4-11.0 [facility] Work Phone: Blood erythrocytes count (nu mber/volume)on 11-18-2021 RBC (Bld) [#/Vol] 3.93 10*6/uL 4.2-5.4 [facility] Work Phone: Blood hemoglobin measurement (mass/volume)on 11-18-2021 Hemoglobin (Bld) [Mass/Vol] 11.6 g/dL 12.0-15.0 [facility] Work Phone: Blood lymphocytes/100 leukoc yteson 11-18-2021 Lymphocytes/100 WBC (Bld) 18.6 % 19-41 [facility] Work Phone: Blood monocytes/100 leukocyt eson 11-18-2021 Monocytes/100 WBC (Bld) 4.8 % 0-10 [facility] Work Phone: Blood platelet mean volumeon 11-18-2021 Platelet mean volume (Bld) [Entitic vol] 11.4 fL 6.2-12.0 [facility] Work Phone: Determination of erythrocyte mean corpuscular volume (MCV)on 11-18-2021 MCV (RBC) [Entitic vol] 88.5 fL 81-99 [facility] Work Phone: Hematocrit Auto (Bld) [Volum e fraction]on 11-18-2021 Hematocrit (Bld) [Volume fraction] 34.8 % 37-47 [facility] Work Phone: Laboratory - Chemistry and C hemistry - challengeon 11-18-2021 ALP [Catalytic activity/Vol] 141 U/L 45-117 [facility] Work Phone: ALT [Catalytic activity/Vol] 14 U/L 13-56 [facility] Work Phone: CO2 [Moles/Vol] 21.0 mmol/L 21.0-32.0 [facility] Work Phone: Globulin (S) [Mass/Vol] 3.5 g/dL 2.2-4.2 [facility] Work Phone: Urea nitrogen/Creatinine [Mass ratio] 15.5 mg/mg 10-20 [facility] Work Phone: Laboratory - Drug toxicology on 11-18-2021 Benzodiazepines Ql (U) Negative [facility] Work Phone: Cannabinoids Screen Ql (U) Positive [facility] Work Phone: Cocaine Ql (U) Negative [facility] Work Phone: Opiates Ql (U) Negative [facility] Work Phone: Laboratory - Hematology and Cell countson 11-18-2021 Erythrocyte distribution width (RBC) [Entitic vol] 41.3 fL 35.1-43.9 [facility] Work Phone: Erythrocyte distribution width (RBC) [Ratio] 12.6 % 11.6-14.6 [facility] Work Phone: Immature granulocytes/100 WBC (Bld) 1.400 % 0.0-0.9 [facility] Work Phone: Comment on above: IG% - Immature Granu locytes (promyelocytes, myelocytes and metamyelocytes) > 1% indicates that a LEFT SHIFT is Present. MCH (RBC) [Entitic mass] 29.5 pg 27.0-32.0 [facility] Work Phone: Nucleated RBC/100 WBC (Bld) [Ratio] 0 % 0-5 [facility] Work Phone: MCHC Auto (RBC) [Mass/Vol]on 11-18-2021 MCHC (RBC) [Mass/Vol] 33.3 g/dL 32-36 [facility] Work Phone: No Panel Informationon 11-18 Estimated Creatinine Clearance Calc 146.54 ml/min [facility] Work Phone: Estimated GFR (MDRD) Amer 190 mL/min >60 [facility] Work Phone: Comment on above: GFR Calc Estimated GFR (MDRD) Non-Af Amer 157 mL/min >60 [facility] Work Phone: Comment on above: Non- GFR Calc MDMA (Ecstasy) Screen Negative [facility] Work Phone: Urine Barbiturates Screen Negative [facility] Work Phone: Urine Drug Screen Comment [facility] Work Phone: Comment on above: CONFIRMATORY TESTING [...] USE TESTMNEMONIC: [facility] Urine Methadone Screen Negative [facility] Work Phone: Vaginal Amniotic Fluid Detection Negative Negative [facility] Work Phone: Comment on above: Amniotic fluid not p resent indicates No Rupture of FetalMembranes at time of specimen collection. Platelets bldon 11-18-2021 Platelets (Bld) [#/Vol] 165 10*3/uL 150-450 [facility] Work Phone: Serum or plasma albumin honey urement (mass/volume)on 11-18-2021 Albumin [Mass/Vol] 2.8 g/dL 3.2-5.0 [facility] Work Phone: Serum or plasma albumin/glob ulin mass ratioon 11-18-2021 Albumin/Globulin [Mass ratio] 0.8 {ratio} 0.9-2.4 [facility] Work Phone: Serum or plasma calcium honey urement (mass/volume)on 11-18-2021 Calcium [Mass/Vol] 8.7 mg/dL 8.5-10.1 [facility] Work Phone: Serum or plasma creatinine m easurement (mass/volume)on 11-18-2021 Creatinine [Mass/Vol] 0.52 mg/dL 0.55-1.02 [facility] Work Phone: Comment on above: The validity of the calculated GFR & GFRAA in patients over 70 years has not been determined. Clinical correlation is essential. Serum or plasma urea nitroge n measurement (mass/volume)on 11-18-2021 Urea nitrogen [Mass/Vol] 8 mg/dL 7-18 [facility] Work Phone: Thin prep Papanicolaou smear with manual screeningon 11-18-2021 Thin prep Papanicolaou smear with manual screening 16 U/L 15-37 [facility] Work Phone: Thin prep Papanicolaou smear with manual screening 8 5-15 [facility] Work Phone: Urine amphetamine measuremen t (moles/volume)on 11-18-2021 Amphetamine (U) [Moles/Vol] Negative [facility] Work Phone: Urine phencyclidine (PCP) de tectionon 11-18-2021 Phencyclidine Ql (U) Negative [facility] Work Phone: URINE OB DIP B/Oon 2 Glucose Ql (U) Negative Neg mg/dL [facility] Protein.monoclonal (U) [Mass/Vol] trace Neg mg/dL [facility] URINE OB DIP B/Oon 2 Glucose Ql (U) Negative Neg mg/dL [facility] Protein.monoclonal (U) [Mass/Vol] Negative Neg mg/dL [facility] UA DIP, URINE (POC)on 2021 BILIRUBIN UA (POCT) Negative Negative [facility] CLARITY UA (POCT) Clear [facility] COLOR UA (POCT) Yellow [facility] GLUCOSE UA (POCT) Negative Negative mg/dL [facility] HEMOGLOBIN/BLOOD UA (POCT) Negative Negative [facility] KETONE UA (POCT) Negative Negative mg/dL [facility] LEUKOCYTES UA (POCT) Small Abnormal Negative [facility] NITRITE UA (POCT) Negative Negative [facility] PH UA (POCT) 7.5 4.5 - 8.0 [facility] Protein Ql (U) Negative Negative mg/dL [facility] SPECIFIC GRAVITY UA (POCT) 1.020 1.005 - 1.030 [facility] UROBILINOGEN UA (POCT) 0.2 E.U./dL Normal E.U./ dL [facility] URINE OB DIP B/Oon 2 Glucose Ql (U) Negative Neg mg/dL [facility] Protein.monoclonal (U) [Mass/Vol] trace Neg mg/dL [facility] UA DIP, URINE (POC)on 2021 BILIRUBIN UA (POCT) Negative Negative [facility] CLARITY UA (POCT) Clear [facility] COLOR UA (POCT) Yellow [facility] GLUCOSE UA (POCT) Negative Negative mg/dL [facility] HEMOGLOBIN/BLOOD UA (POCT) Negative Negative [facility] KETONE UA (POCT) Negative Negative mg/dL [facility] LEUKOCYTES UA (POCT) Trace Abnormal Negative [facility] NITRITE UA (POCT) Negative Negative [facility] PH UA (POCT) 8.0 4.5 - 8.0 [facility] Protein Ql (U) Negative Negative mg/dL [facility] SPECIFIC GRAVITY UA (POCT) 1.020 1.005 - 1.030 [facility] UROBILINOGEN UA (POCT) 0.2 E.U./dL Normal E.U./ dL [facility] OBSTETRIC ULTRASOUND WHIon 0 10-12-2021 [facility] URINE OB DIP B/Oon 2 Glucose Ql (U) Negative Neg mg/dL [facility] Protein.monoclonal (U) [Mass/Vol] trace Neg mg/dL [facility] URINE OB DIP B/Oon 2 Glucose Ql (U) Negative Neg mg/dL [facility] Protein.monoclonal (U) [Mass/Vol] Negative Neg mg/dL [facility] Bilirubin Test strip Ql (U)o n 09-13-2021 Bilirubin Ql (U) Negative Negative [facility] Work Phone: Culture, urineon 09-13-2021 Bacteria identified Cx Nom (U) Positive [facility] Work Phone: [phone] fibronectinon 09-14-19 22 Fibronectin. (Vag fld) [Mass/Vol] Negative [facility] Work Phone: [phone] Ketones Test strip Ql (U)on 09-13-2021 Ketones Ql (U) 5 mg/dl Negative [facility] Work Phone: [phone] Nitrite Test strip Ql (U)on 09-13-2021 Nitrite Ql (U) Negative Negative [facility] Work Phone: [phone] Protein Test strip Ql (U)on 09-13-2021 Protein Ql (U) 30 mg/dl Negative [facility] Work Phone: [phone] Urine blood detectionon 04- RBC Ql (U) Negative Negative [facility] Work Phone: [phone] Urine clarityon 09-13-2021 Clarity (U) Clear Clear [facility] Work Phone: Urine color determinationon 09-13-2021 Color (U) Yellow Yellow [facility] Work Phone: [phone] Urine glucose detectionon Glucose Ql (U) Normal mg/dl Normal [facility] Work Phone: [phone] Urine leukocyte esterase det ection by dipstickon 09-13-2021 Leukocyte esterase Test strip Ql (U) 25 /ul Negative [facility] Work Phone: [phone] Urine pHon 09-13-2021 pH (U) 6.0 [pH] [facility] Work Phone: [phone] Urine specific gravity measu rementon 09-13-2021 Specific gravity (U) [Rel density] 1.020 [facility] Work Phone: [phone] Urobilinogen Auto test strip Ql (U)on 09-13-2021 Urobilinogen Ql (U) 4 mg/dl Normal [facility] Work Phone: URINE OB DIP B/Oon 2 Glucose Ql (U) Negative Neg mg/dL [facility] Protein.monoclonal (U) [Mass/Vol] Negative Neg mg/dL [facility] Basophil percentageon 2021 Bilirubin [Mass/Vol] 0.30 mg/dL 0.20-1.00 [facility] Work Phone: Comment on above: For patients on eltr ombopag therapy, use of Dimension Carrier TBIL is not recommended. Chloride [Moles/Vol] 109 mmol/L 98-107 [facility] Work Phone: Glucose [Mass/Vol] 74 mg/dL 74-106 [facility] Work Phone: Potassium [Moles/Vol] 3.6 mmol/L 3.5-5.1 [facility] Work Phone: Protein [Mass/Vol] 6.2 g/dL 6.4-8.2 [facility] Work Phone: Sodium [Moles/Vol] 137 mmol/L 136-145 [facility] Work Phone: WBC (Bld) [#/Vol] 10.4 10*3/uL 4.4-11.0 [facility] Work Phone: Basophil percentage 0-5 SEEN /hpf [facility] Work Phone: Bilirubin Test strip Ql (U)o n 09-11-2021 Bilirubin Ql (U) 1 mg/dL Negative [facility] Work Phone: Comment on above: COLOR OF URINE MAY A FFECT DIPSTICK RESULTS. Blood erythrocytes count (nu mber/volume)on 09-11-2021 RBC (Bld) [#/Vol] 3.81 10*6/uL 4.2-5.4 [facility] Work Phone: Blood hemoglobin measurement (mass/volume)on 09-11-2021 Hemoglobin (Bld) [Mass/Vol] 11.6 g/dL 12.0-15.0 [facility] Work Phone: Blood platelet mean volumeon 09-11-2021 Platelet mean volume (Bld) [Entitic vol] 11.6 fL 6.2-12.0 [facility] Work Phone: Chlamydia trachomatis rRNA d etection by probe and target amplification methodon 09-11-2021 C. trachomatis rRNA ANURADHA+probe Ql (Unsp spec) Positive Negative [facility] Work Phone: Comment on above: RESULTS CALLED TO Tanisha Ortiz 09/13/21 0934 Mckenzie Connolly.REPORT READ BACK BY SAME. Culture, urineon 09-11-2021 Bacteria identified Cx Nom (U) Positive [facility] Work Phone: Determination of erythrocyte mean corpuscular volume (MCV)on 09-11-2021 MCV (RBC) [Entitic vol] 89.8 fL 81-99 [facility] Work Phone: Hematocrit Auto (Bld) [Volum e fraction]on 09-11-2021 Hematocrit (Bld) [Volume fraction] 34.2 % 37-47 [facility] Work Phone: Ketones Test strip Ql (U)on 09-11-2021 Ketones Ql (U) 5 mg/dl Negative [facility] Work Phone: Laboratory - Chemistry and C hemistry - challengeon 09-11-2021 ALP [Catalytic activity/Vol] 83 U/L 45-117 [facility] Work Phone: ALT [Catalytic activity/Vol] 14 U/L 13-56 [facility] Work Phone: CO2 [Moles/Vol] 23.0 mmol/L 21.0-32.0 [facility] Work Phone: Globulin (S) [Mass/Vol] 3.3 g/dL 2.2-4.2 [facility] Work Phone: Urea nitrogen/Creatinine [Mass ratio] 13.9 mg/mg 10-20 [facility] Work Phone: Laboratory - Hematology and Cell countson 09-11-2021 Erythrocyte distribution width (RBC) [Entitic vol] 42.3 fL 35.1-43.9 [facility] Work Phone: Erythrocyte distribution width (RBC) [Ratio] 12.9 % 11.6-14.6 [facility] Work Phone: MCH (RBC) [Entitic mass] 30.4 pg 27.0-32.0 [facility] Work Phone: Laboratory - Microbiology an d Antimicrobial susceptibilityon 09-11-2021 N. gonorrhoeae DNA ANURADHA+probe Ql (Unsp spec) Negative Negative [facility] Work Phone: Comment on above: Performed at: =Arti porter [address] [id number] Director: Susana Dias MD, Phone: [phone] MCHC Auto (RBC) [Mass/Vol]on 09-11-2021 MCHC (RBC) [Mass/Vol] 33.9 g/dL 32-36 [facility] Work Phone: Mucus LM Ql (Urine sed)on Mucus Ql (Urine sed) 0 SEEN /hpf [facility] Work Phone: Nitrite Test strip Ql (U)on 09-11-2021 Nitrite Ql (U) Negative Negative [facility] Work Phone: No Panel Informationon 09-11 Estimated Creatinine Clearance Calc 152.40 ml/min [facility] Work Phone: Estimated GFR (MDRD) Amer 197 mL/min >60 [facility] Work Phone: Comment on above: GFR Calc Estimated GFR (MDRD) Non-Af Amer 162 mL/min >60 [facility] Work Phone: Comment on above: Non- GFR Calc Vaginal Amniotic Fluid Detection Negative Negative [facility] Work Phone: Comment on above: Amniotic fluid not p resent indicates No Rupture of FetalMembranes at time of specimen collection. Platelets bldon 04-05-2022 Platelets (Bld) [#/Vol] 158 10*3/uL 150-450 [facility] Work Phone: Protein Test strip Ql (U)on 09-11-2021 Protein Ql (U) 30 mg/dl Negative [facility] Work Phone: Serum or plasma albumin honey urement (mass/volume)on 09-11-2021 Albumin [Mass/Vol] 2.9 g/dL 3.2-5.0 [facility] Work Phone: Serum or plasma albumin/glob ulin mass ratioon 09-11-2021 Albumin/Globulin [Mass ratio] 0.9 {ratio} 0.9-2.4 [facility] Work Phone: Serum or plasma calcium honey urement (mass/volume)on 09-11-2021 Calcium [Mass/Vol] 8.2 mg/dL 8.5-10.1 [facility] Work Phone: Serum or plasma creatinine m easurement (mass/volume)on 09-11-2021 Creatinine [Mass/Vol] 0.50 mg/dL 0.55-1.02 [facility] Work Phone: Comment on above: The validity of the calculated GFR & GFRAA in patients over 70 years has not been determined. Clinical correlation is essential. Serum or plasma urea nitroge n measurement (mass/volume)on 09-11-2021 Urea nitrogen [Mass/Vol] 7 mg/dL 7-18 [facility] Work Phone: Squamous epithelial cells de tection in urine sediment by light microscopyon 09-11-2021 Epithelial cells.squamous LM Ql (Urine sed) 10-25 SEEN /hpf [facility] Work Phone: Thin prep Papanicolaou smear with manual screeningon 09-11-2021 Thin prep Papanicolaou smear with manual screening 17 U/L 15-37 [facility] Work Phone: Thin prep Papanicolaou smear with manual screening 5 5-15 [facility] Work Phone: Urine blood detectionon RBC Ql (U) Negative Negative [facility] Work Phone: [phone] RBC Ql (U) 0 SEEN /hpf [facility] Work Phone: Urine clarityon 09-11-2021 Clarity (U) Sl. Cloudy Clear [facility] Work Phone: Urine color determinationon 09-11-2021 Color (U) Yellow Yellow [facility] Work Phone: [phone] Urine glucose detectionon Glucose Ql (U)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 [facility] Work Phone: Comment on above: Ordered: 11/14/2023 Bacteria identified in Urine by Culture BACTERIAL CULTURE, URINE Microbiology Routine Burning with urination 01/03/2025 11:17 AM EDT [facility] Work Phone: BACTERIAL VAGINOSIS AMPLIFICATION BACTERIAL VAGINOSIS AMPLIFICATION Lab Routine Vaginal discharge Ordered: 02/05/2022 [facility] Work Phone: Comment on above: Ordered: 02/05/2022 BACTERIAL VAGINOSIS NAAT BACTERI AL VAGINOSIS NAAT Lab Routine Dysuria 05/14/2023 1:47 PM EST [facility] Work Phone: BACTERIAL VAGINOSIS NAAT BACTERI AL VAGINOSIS NAAT Lab Routine Urinary frequency Ordered: 10/04/2023 [facility] Comment on above: Ordered: 10/04/2023 Bilirubin, total measurement [facility] BUN/Creatinine ratio [facility] Calcium [Mass/volume ] in Serum or Plasma [facility] TRACEY / TRICHOMONA S AMPLIFICATION TRACEY / TRICHOMONAS AMPLIFICATION Microbiology Routine Vaginal discharge Ordered: 02/05/2022 [facility] Work Phone: Comment on above: Ordered: 02/05/2022 TRACEY / TRICHOMONA S AMPLIFICATION TRACEY / TRICHOMONAS AMPLIFICATION Microbiology Routine Urinary frequency Ordered: 04/27/2022 [facility] Work Phone: Comment on above: Ordered: 04/27/2022 TRACEY/TRICHOMONAS NAAT TRACEY /TRICHOMONAS NAAT Lab Routine Dysuria 05/14/2023 1:47 PM [facility] Work Phone: TRACEY/TRICHOMONAS NAAT TRACEY /TRICHOMONAS NAAT Lab Routine Urinary frequency Ordered: 10/04/2023 [facility] Comment on above: Ordered: 10/04/2023 TRACEY/TRICHOMONAS NAAT TRACEY /TRICHOMONAS NAAT Lab Routine Screening for STD (sexually transmitted disease) 05/19/2024 11:23 AM [facility] Carbon dioxide, tota l [Moles/volume] in Serum or Plasma [facility] Chlamydia trachomatis+Neisseria gonorrhoeae DNA [Presence] in Unspecified specimen by ANURADHA with probe detection GC/CHLAMYDIA DNA DET Lab Routine Supervision of high risk in third trimester 34 weeks gestation of Pelvic pressure in 10/19/2021 10:58 AM [facility] Work Phone: Chlamydia trachomatis+Neisseria gonorrhoeae DNA [Presence] in Unspecified specimen by ANURADHA with probe detection GC/CHLAMYDIA DNA DET Lab Routine Urinary frequency Ordered: 04/27/2022 [facility] Work Phone: Comment on above: Ordered: 04/27/2022 Chlamydia trachomatis+Neisseria gonorrhoeae DNA [Presence] in Unspecified specimen by ANURADHA with probe detection GONORRHEA/CHLAMYDIA NAAT Lab Routine Vaginal discharge 01/15/2023 3:43 PM [facility] Work Phone: Chlamydia trachomatis+Neisseria gonorrhoeae DNA [Presence] in Unspecified specimen by ANURADHA with probe detection GONORRHEA/CHLAMYDIA NAAT Lab Routine Dysuria 05/14/2023 1:47 PM [facility] Work Phone: Chlamydia trachomatis+Neisseria gonorrhoeae DNA [Presence] in Unspecified specimen by ANURADHA with probe detection GONORRHEA/CHLAMYDIA NAAT Lab Routine Urinary frequency Ordered: 10/04/2023 [facility] Comment on above: Ordered: 10/04/2023 Chlamydia trachomatis+Neisseria gonorrhoeae DNA [Presence] in Unspecified specimen by ANURADHA with probe detection GONORRHEA/CHLAMYDIA NAAT Lab Routine Screening for STD (sexually transmitted disease) 05/19/2024 11:23 AM [facility] Chlamydia trachomatis+Neisseria gonorrhoeae DNA [Presence] in Unspecified specimen by ANURADHA with probe detection GONORRHEA/CHLAMYDIA NAAT Lab Routine Screen for STD (sexually transmitted disease) 12/22/2024 2:41 PM EDT [facility] Chloride [Moles/volu me] in Serum or Plasma [facility] Choriogonadotropin ( test) [Presence] in Serum or Plasma [facility] Choriogonadotropin.b eta subunit ( test) [Presence] in Serum or Plasma [facility] Creatinine [Moles/vo lume] in Serum or Plasma [facility] Erythrocyte mean corpuscular volume determination [facility] Glucose [Mass/volume ] in Serum or Plasma [facility] Hematocrit [Volume Fraction] of Blood [facility] Hemoglobin [Mass/vol ume] in Blood [facility] Leukocytes [#/volume ] in Blood [facility] Mean corpuscular hemoglobin concentration determination [facility] Mean corpuscular hemoglobin determination [facility] Measurement of renal function [facility] Neutrophil count [facility] Neutrophil percent differential count [facility] NEXPLANON INSERTION NEXPLANON IN SERTION Procedures Routine Insertion of implantable subdermal contraceptive Ordered: 01/01/2022 [facility] Work Phone: Comment on above: Ordered: 01/01/2022 NEXPLANON REMOVAL NEXPLANON HUGO MARYJANE Procedures Routine Nexplanon removal Ordered: 04/30/2024 [facility] Work Phone: Comment on above: Ordered: 04/30/2024 OBSTETRIC ULTRASOUND [facility]I OBSTETR IC ULTRASOUND [facility] Anc Imaging Routine 33 weeks gestation of Uterine size-date discrepancy in third trimester History of macrosomia in in prior , currently in third trimester Ordered: 10/11/2021 [facility] Work Phone: Comment on above: Ordered: 10/11/2021 PAP TEST PAP TEST Lab Tali javier Encounter for gynecological examination (general) (routine) without abnormal findings Screening for cervical cancer 12/22/2024 2:41 PM EDT [facility] Work Phone: Patient Education [facility] Work Phone: Patient referral [facility] Work Phone: Platelets [#/volume] in Blood [facility] Potassium [Moles/vol ume] in Serum or Plasma [facility] Red blood cell count [facility] Red cell distributio n width determination [facility] ROUTINE, GR OUP B STREP PCR ROUTINE, GROUP B STREP PCR Microbiology Routine 36 weeks gestation of 10/30/2021 3:38 PM EDT [facility] Work Phone: Sodium [Moles/volume ] in Serum or Plasma [facility] Total protein measurement [facility] UA DIP, URINE (POC) UA DIP, URIN E (POC) Lab Routine Dysuria Ordered: 05/14/2023 [facility] Work Phone: Comment on above: Ordered: 05/14/2023 Urea nitrogen [Mass/volume] in Serum or Plasma [facility] Immunization Date Immunization Notes Care Provider Rula mantilla 11-08-2024 tetanus toxoid, redu latisha diphtheria toxoid, and acellular pertussis vaccine, adsorbed Krishan Wing APRN.EDITORIAL ASSISTANT Work Phone: [facility] 04-21-2024 influenza virus vacc ine, unspecified formulation Janelle Ennis APRN.EDITORIAL ASSISTANT Work Phone: [facility] 11-19-2021 measles, mumps and rubella virus vaccine [facility] 09-12-2021 tetanus toxoid, redu latisha diphtheria toxoid, and acellular pertussis vaccine, adsorbed Karyna Roberts MD Work Phone: [facility] 04-23-2021 influenza, injectabl e, quadrivalent, contains preservative Karyna Roberts MD Work Phone: [facility] 04-23-2021 influenza, injectabl e, quadrivalent, preservative free [facility] 04-23-2021 influenza, seasonal, injectable [facility] 04-23-2021 influenza virus vacc ine, unspecified formulation Haider Pereyra MD Work Phone: [facility] 02-22-2020 influenza, injectabl e, quadrivalent, contains preservative Karyna Roberts MD Work Phone: [facility] 06-29-2018 influenza, injectabl e, quadrivalent, contains preservative Karyna Roberts MD Work Phone: [facility] 11-01-2015 meningococcal polysaccharide (groups A, C, Y and W-135) diphtheria toxoid conjugate vaccine (MCV4P) Karyna Roberts MD Work Phone: [facility] Work Phone: 04-07-2015 influenza, injectabl e, quadrivalent, preservative free Karyna Roberts MD Work Phone: [facility] Work Phone: 03-16-2014 influenza, injectabl e, quadrivalent, preservative free Karyna Roberts MD Work Phone: [facility] Work Phone: 03-05-2013 influenza virus vacc ine, unspecified formulation Karyna Roberts MD Work Phone: [facility] 01-16-2012 human papilloma viru s vaccine, quadrivalent Karyna Roberts MD Work Phone: [facility] 05-16-2011 hepatitis A vaccine, unspecified formulation Karyna Roberts MD Work Phone: [facility] Work Phone: 05-16-2011 human papilloma viru s vaccine, quadrivalent Karyna Roberts MD Work Phone: [facility] Work Phone: 05-16-2011 influenza virus vacc ine, unspecified formulation Karyna Roberts MD Work Phone: [facility] Work Phone: 12-11-2010 human papilloma viru s vaccine, quadrivalent Karyna Roberts MD Work Phone: [facility] Work Phone: 12-11-2010 Meningococcal, MCV4, unspecified conjugate formulation(groups A, C, Y and W-135) Karyna Roberts MD Work Phone: [facility] Work Phone: 12-11-2010 tetanus toxoid, redu latisha diphtheria toxoid, and acellular pertussis vaccine, adsorbed Karyna Roberts MD Work Phone: [facility] Work Phone: 04-17-2010 influenza virus vacc ine, unspecified formulation Karyna Roberts MD Work Phone: [facility] Work Phone: 03-30-2009 influenza virus vacc ine, unspecified formulation Karyna Roberts MD Work Phone: [facility] Work Phone: 02-17-2007 hepatitis A vaccine, unspecified formulation Karyna Roberts MD Work Phone: [facility] Work Phone: 02-17-2007 varicella virus vaccine Karyna Roberts MD Work Phone: [facility] Work Phone: 12-21-2003 diphtheria, tetanus toxoids and acellular pertussis vaccine Karyna Roberts MD Work Phone: [facility] Work Phone: 12-21-2003 measles, mumps and rubella virus vaccine Karyna Roberts MD Work Phone: [facility] Work Phone: 12-21-2003 poliovirus vaccine, inactivated Karyna Roberts MD Work Phone: [facility] Work Phone: 02-17-2001 diphtheria, tetanus toxoids and acellular pertussis vaccine Karyna Roberts MD Work Phone: [facility] Work Phone: 02-17-2001 haemophilus influenz ae type b vaccine, HbOC conjugate Karyna Roberts MD Work Phone: [facility] Work Phone: 02-17-2001 hepatitis B vaccine, pediatric or pediatric/adolescent dosage Karyna Roberts MD Work Phone: [facility] Work Phone: 02-17-2001 pneumococcal conjuga te vaccine, 7 valent Karyna Roberts MD Work Phone: [facility] Work Phone: 02-29-2000 hepatitis B vaccine, pediatric or pediatric/adolescent dosage Karyna Roberts MD Work Phone: [facility] Work Phone: 02-29-2000 measles, mumps and rubella virus vaccine Karyna Roberts MD Work Phone: [facility] Work Phone: 02-29-2000 pneumococcal conjuga te vaccine, 7 valent Karyna Roberts MD Work Phone: [facility] Work Phone: 02-29-2000 varicella virus vaccine Karyna Roberts MD Work Phone: [facility] Work Phone: 1999 diphtheria, tetanus toxoids and acellular pertussis vaccine Karyna Roberts MD Work Phone: [facility] Work Phone: 1999 haemophilus influenz ae type b vaccine, HbOC conjugate Karyna Roberts MD Work Phone: [facility] Work Phone: 1999 hepatitis B vaccine, pediatric or pediatric/adolescent dosage Karyna Roberts MD Work Phone: [facility] Work Phone: 1999 poliovirus vaccine, inactivated Karyna Roberts MD Work Phone: [facility] Work Phone: 1999 diphtheria, tetanus toxoids and acellular pertussis vaccine Karyna Roberts MD Work Phone: [facility] Work Phone: 1999 haemophilus influenz ae type b vaccine, HbOC conjugate Karyna Roberts MD Work Phone: [facility] Work Phone: 1999 poliovirus vaccine, inactivated Karyna Roberts MD Work Phone: [facility] Work Phone: 1999 diphtheria, tetanus toxoids and acellular pertussis vaccine Karyna Roberts MD Work Phone: [facility] Work Phone: 1999 haemophilus influenz ae type b vaccine, HbOC conjugate Karyna Roberts MD Work Phone: [facility] Work Phone: 1999 poliovirus vaccine, inactivated Karyna Roberts MD Work Phone: [facility] Work Phone: Payers Date Payer Category Payer Self-pay [id number] 2015 Medicaid [id number] 2015 Medicaid [id number] 2015 Medicaid [employer] [id number] 2015-Present [phone] [address] [place] [address] Medicaid [id number] 2015 Medicaid [id number] 1999 Unknown [id number] Unknown [id number] Unknown [id number] Unknown [id number] Unknown [id number] Unknown [id number] Unknown [id number] Unknown [id number] Social History Date Type Detail Facility Start: 04-07-2021 End: 10-15-2023 Tobacco smoking status HIIS Unknown if ever smoked [facility] Start: 09-27-2020 None [facility] Start: 09-27-2020 Alone [facility] Start: 10-18-2020 Cigarettes [facility] Start: 2000 Sex Assigned At Female W [facility] Start: 07-19-2020 End: 01-15-2025 Tobacco smoking status NHIS Smokes tobacco daily [facility] Work Phone: History of tobacco use Cigarette Smoker [facility] Work Phone: Start: 07-19-2020 End: 05-04-2024 Cigarettes smoked current (pack per day) - Reported 0.25 [facility] Start: 07-19-2020 End: 05-19-2024 Tobacco use and exposure Smokeless tobacco non-user [facility] Work Phone: Start: 09-12-2021 End: 01-12-2025 Alcohol intake Current non-drinker of alcohol (finding) [facility] Start: 07-03-2017 End: 02-05-2022 Tobacco Comment 7 cigarettes a day [facility] Start: 03-04-2021 [facility] Start: 1999 Sex Assigned At Not on file [facility] Start: 08-18-2021 End: 05-12-2022 Exposure to SARS-CoV-2 (event) Not sure [facility] Start: 10-19-2021 End: 05-19-2024 Tobacco smoking status NHIS Ex-smoker [facility] History of tobacco use Current smoker [facility] Work Phone: Start: 10-28-2022 End: 05-04-2024 Tobacco use panel [facility] Start: 05-10-2012 National Score (1-100), lower number is lower risk 80 [facility] Start: 10-10-2022 Gender identity Identifies as female gender (finding) [facility] Start: 09-14-2024 Sex Female (finding) [facility] Start: 01-28-2025 Alcoholic beverage intake Current drinker of alcohol (finding) [facility] Start: 01-28-2025 Alcohol Comment Socially [facility] NEGATED: Highlighted row [facility] Medical Equipment Procedure Code Equipment Code Equipment [...] 10-13-2022 RELOAD,REG 60MM [id number] FDA Start: 10-13-2022 STAPOMAR,[id number] FDA Start: 10-13-2022 AYDE SIMONS FDA Start: 10-13-2022 RELOAD, SR75 SELECTABLE FDA Start: 10-13-2022 RELOAD, SR75 SELECTABLE FDA Start: 10-13-2022 RELOAD, SR75 SELECTABLE FDA Start: 10-13-2022 RELOAD,REG 60MM [id number] FDA Start: 10-13-2022 STAPOMAR,TX60B FDA Start: 10-13-2022 AYDE SIMONS FDA Start: 10-13-2022 RELOAD, SR75 SELECTABLE FDA Start: 10-13-2022 RELOAD, SR75 SELECTABLE FDA Start: 10-13-2022 RELOAD, SR75 SELECTABLE FDA Start: 10-13-2022 RELOAD,REG 60MM [id number] FDA Start: 10-13-2022 STAPLER,[id number] FDA Start: 10-13-2022 Goals Date Patient Goal Desired Activity /State Functional Status Date Assessment Result Facility 10-15-2022 Functional status Ambulates [facility] Work Phone: 10-11-2014 Are you deaf, or do you have serious difficulty hearing Yes 10/11/2014 3:39 PM EDBreonna Chowdary RN Yes [facility] 10-11-2014 Are you blind, or do you have serious difficulty seeing, even when wearing glasses No 10/11/2014 3:39 PM Breonna Linares RN No [facility] 10-11-2014 Do you have serious difficulty walking or climbing stairs No 10/11/2014 3:39 PM Breonna Linares RN No [facility] 10-11-2014 Do you have difficul ty dressing or bathing No 10/11/2014 3:39 PM Breonna Linares RN No [facility] 10-11-2014 Because of a physica l, mental, or emotional condition, do you have difficulty doing errands alone such as visiting a physician's office or shopping No 10/11/2014 3:39 PM EDT Breonna Cherry RN No [facility] Mental Status Date Assessment Result Facility 10-14-2022 Cognitive function Voice/Name Josette Ludwig [facility] Work Phone: 10-11-2014 Because of a physica l, mental, or emotional condition, do you have serious difficulty concentrating, remembering, or making decisions Yes 10/11/2014 3:39 PM EDT Breonna Cherry RN Yes [facility] Clinical Notes 08-14-2017 to 04-12-2025 Patient InstructionsJanelle Ennis APRN.EDITORIAL ASSISTANT - 01/28/2025 2:43 PM EDTKeanu Cruz Tech - 01/26/2025 4:50 PM Vale Kerr PA - 01/26/2025 4:46 PM EDTPatient InstructionsPatient Instructions Note Date & Type Note Facility 04-12-2025 Note HNO ID: [id number] Author: JAGDISH METZGER APRN.EDITORIAL ASSISTANT Service: ? Author Type: Nurse Practitioner Type: Progress Notes Filed: 04/12/2025 18:13 Note Text: [facility] Osman is a 25 year old female. Patient presents with: : 3 positive home tests, requesting confirmation HPI Patient is a 25 year old female presents today to confirm . Patient stated she has been having morning sickness the past few weeks, vomiting in the morning, and have tested positive 3X at home. Patient recently removed nexplanon, last day of period was February, and thinks she is . Patient denies chills, fever, abdominal pain, pelvic pain, vaginal discharge, spotting, sob, chest pain, and lower back pain. Review of Systems Constitutional: Positive for fatigue. Negative for chills and fever. HENT: Negative for congestion. Respiratory: Negative for cough. Pt states she vapes Cardiovascular: Negative for chest pain. Gastrointestinal: Positive for vomiting. Negative for abdominal pain, diarrhea and nausea. Vomit in the morning due to morning sickness Genitourinary: Negative for flank pain, pelvic pain, vaginal bleeding, vaginal discharge and vaginal pain. Musculoskeletal: Negative for back pain. Skin: Negative for color change. Objective BP 117/83 Pulse 105 Temp 36.8 ?C (98.2 ?F) Resp 18 Wt 64.3 kg (141 lb 12.1 oz) LMP 03/03/2025 (Within Days) SpO2 100% BMI 24.72 kg/m? Physical Exam Constitutional: Appearance: Normal appearance. Cardiovascular: Rate and Rhythm: Regular rhythm. Tachycardia present. Pulmonary: Effort: Pulmonary effort is normal. No respiratory distress. Breath sounds: Normal breath sounds. No stridor. No wheezing, rhonchi or rales. Abdominal: General: Bowel sounds are normal. Palpations: Abdomen is soft. Tenderness: There is no abdominal tenderness. There is no guarding or rebound. Genitourinary: Vagina: No vaginal discharge. Musculoskeletal: General: Normal range of motion. Skin: General: Skin is warm and dry. Findings: No rash. Neurological: General: No focal deficit present. Mental Status: She is alert. {ASSESSMENT/PLAN: 1. Missed menses - ICD9: 626.4, ICD10: N92.6 (primary diagnosis) - UA DIP,URINE HCG (POC) -Patient urine showed positive for -Recommended to start taking supplements -Follow up with the OBGYN 2. Cloudy urine - ICD9: 791.9, ICD10: R82.90 - UA DIP, URINE (POC) - BACTERIAL CULTURE, URINE -Prescribed antibiotic -Educated the patient on safety of the antibiotic -Recommended patient to stop vaping -Red flag and ER evaluation were discussed [facility] TEACHING PROVIDER (Physician/PA/[employer] CAPTURE POWER PLANT OPERATOR) NOTE OF PERSONAL INVOLVEMENT IN CARE: I have personally seen and examined the patient and performed the medical decision-making components. I have reviewed the Advanced Practice Registered Nurse ([employer] PL[employer] OPERATOR) Student's documentation and verified the findings in the note as written. Any additions or changes are noted in bold/italics. Signature: Jagdish Domenica Date: 04/12/2025 Time: 6:13 PM History and Record Review Clinical information obtained from an independent historian. History obtained from or confirmed by: parent. External record(s) reviewed: prior outpatient record. Disposition The patient was discharged. Procedures [facility] 01-28-2025 Instructions Janelle Ennis APRN.EDITORIAL ASSISTANT - 01/28/2025 3:25 PM EDT NEXPLANON (progestin implant) Removal Aftercare Instructions Things to know: Once the implant is removed you are at risk for becoming . Discuss with your provider use of another method of control. Bruising and swelling at the site are common in the first 24 hours. Keep the dressing on for 24 hours. After 24 hours, you can remove the dressing and take a shower or bath. You should use latex condoms and /or dental dams to prevent sexually transmitted infections (STIs). You may return to school or work after your visit. Warning Signs: Redness, warmth or drainage from the removal site Fever (>101 degrees) If you develop any of the above warning signs you should be seen by a health care provider as soon as possible. documented in this encounter [facility] 01-28-2025 Note HNO ID: [id number] Author: JANELLE ENNIS APRN.CNP Service: ? Author Type: Nurse Practitioner Type: Progress Notes Filed: 01/28/2025 16:57 Note Text: [employer] Director offered: Patient declines. Alcazar is a 24 year old Female who presents for Nexplanon removal for desires conception. UNIVERSAL PROTOCOL / SAFETY CHECKLIST Procedure to be Performed: Nexplanon Removal Sign In: A Moment of CARE was completed. Appropriate PPE (Personal Protective Equipment) worn by all providers involved with the procedure. Special equipment utilized 2 pc set. Patient/Surrogate Stated/Verified: Patient name, Date of , Relevant allergies, and The intended procedure Time Out: Relevant labs, photos, and/or imaging studies are not applicable. Intended patient and procedure match the source document(s) (e.g. consent, HANDP, associated studies [imaging, pathology]) match the intended patient and procedure. Consent obtained and matches the intended procedure. Yes. Correct side/site is not applicable. Medications required for this procedure are verified. Fire risk assessed and is not applicable. Implants: are not applicable. Sign Out: Specimens not collected. All instruments, equipment, possible retained foreign bodies are accounted for. Yes. The post-procedure plan of care has been communicated to the patient or surrogate. TECHNIQUE: Patient placed in supine position with left arm bent at the elbow and placed over the head. Skin cleansed with betadine. 1.5mL of 1% lidocaine with epi injected subQ along insertion site. Scalpel used to made a 5m stab incision superficially at distal end of Nexplanon. Device removed under sterile technique with a small hemostat. Sterile pressure dressing applied. AANDP: 24 year old Female here for Nexplanon removal Nexplanon removed intact without difficulty. The patient was instructed to remove the dressing after 24 hours. Contraceptive plans PNSUNG Ennis APRN.EDITORIAL ASSISTANT [facility] 01-28-2025 History of Presen t illness Narrative [employer] Director offered: Patient declinesSymone Alcazar is a 24 year old Female who presents for Nexplanon removal for desires conception. UNIVERSAL PROTOCOL / SAFETY CHECKLIST Procedure to be Performed: Nexplanon Removal Sign In: A Moment of CARE was completed. Appropriate PPE (Personal Protective Equipment) worn by all providers involved with the procedure. Special equipment utilized 2 pc set. Patient/Surrogate Stated/Verified: Patient name, Date of , Relevant allergies, and The intended procedure Time Out: Relevant labs, photos, and/or imaging studies are not applicable. Intended patient and procedure match the source document(s) (e.g. consent, H&P, associated studies [imaging, pathology]) match the intended patient and procedure. Consent obtained and matches the intended procedure. Yes. Correct side/site is not applicable. Medications required for this procedure are verified. Fire risk assessed and is not applicable. Implants: are not applicable. Sign Out: Specimens not collected. All instruments, equipment, possible retained foreign bodies are accounted for. Yes. The post-procedure plan of care has been communicated to the patient or surrogate. TECHNIQUE: Patient placed in supine position with left arm bent at the elbow and placed over the head. Skin cleansed with betadine. 1.5mL of 1% lidocaine with epi injected subQ along insertion site. Scalpel used to made a 5m stab incision superficially at distal end of Nexplanon. Device removed under sterile technique with a small hemostat. Sterile pressure dressing applied. A&P: 24 year old Female here for Nexplanon removal Nexplanon removed intact without difficulty. The patient was instructed to remove the dressing after 24 hours. Contraceptive plans MARY CARMEN Ennis APRN.EDITORIAL ASSISTANT documented in this encounter [facility] 01-26-2025 History of Presen t illness Narrative Radiology Service Progress Note PATIENT NAME: Ottoniel Osman DATE OF SERVICE: January 26, 2025 TIME: 4:57 PM PATIENT IDENTITY VERIFICATION COMPLETED USING TWO (2) IDENTIFIERS: Name and Date of confirmed by patient verbally. FALL SCREENING: Has the patient had 2 falls in the last year or 1 fall with injury or currently using an Ambulatory Assistive Device (Walker, Cane, Wheelchair, Crutches, etc.)? No PATIENT GENDER DATA: Assigned female at . status: : No status: NO. PATIENT RELEVANT IMPLANT DATA REVIEWED: Not Applicable PATIENT PRESENTS WITH AN IMPLANTABLE OR ATTACHED DISTRIBUTION SALES MANAGER: No RADIOLOGY DEPARTMENT: General X-ray: Exam(s) Completed: Lower Extremity X-Ray(s): Toes, Left PERIPHERAL IV DATA: Not applicable SIGNED BY: Adriana Mcleod January 26,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 you have Problems For any increased pain, shortness of breath, bleeding, nausea or vomiting, chestpain, or any unexpected problems, contact your Primary Care Provider. Call [facility] ([phone]) or report to the closest Emergency Room. Call 911 if necessary. 10/12/22 5976 <Electronically signed by Martín Lux MD> Cosigner Signature (if applicable): CC: No Primary Care Physician ~ Signed [facility] Work Phone: 1(367) 811-889105-06-[address] Sesay [facility] October 12, 2022 7:26am Note Date/Time October 12, 2022 7:26am [facility] Medical Records Department [address] [place] [address] Progress Note - Surgery 10/12/22723 MR#: [id number] Acct: [id number] Name: OTTONIEL OSMAN LIA Rep #:[id number] : 2000 From: Roberto Carlos martinez MD PCP: Care Physician,No Primary Status :ADM IN [facility] Subjective Subjective Patient is still in significant [...] % (Auto) 63.2, Lymph % (Auto) 23.8, Cochran % (Auto) 6.4, Eos % (Auto) 5.7 [...] % (Auto) 52.5, Lymph % (Auto) 34.0, Cochran % (Auto) 6.7, Eos % (Auto) 6.0 [...] surgical resection. Roberto Carlos Sesay MD Pager: [facility] [facility] [address] [place] [address], [address] [place] [address] Office: 10/12/22 5720 <Electronically signed by Roberto Carlos Sesay MD> Cosigner Signature (if applicable): CC: ~ Signed [facility] Work Phone: 1(947) 669-311805-06-2023 History and physical note Author Dr. Sesay [facility] October 11, 2022 11:40pm Note Date/Time October 11, 2022 11:40p m [facility] Medical Records Department [address] [place] [address] H&P Exam - Surgical 10/11/22 2336 MR#: [id number] Acct: [id number] Name: OTTONIEL OSMAN LIA Rep #:[id number] : 2000 22 From: Roberto Carlos martinez [...] started another cycle 2 days ago. FOR[facility]LY [facility] Medical History ADHD Asthma Chlamydia infection [...] % (Auto) 63.2, Lymph % (Auto) 23.8, Cochran % (Auto) 6.4, Eos % (Auto) 5.7 [...] 6 weeks. Roberto Carlos Sesay MD Pager: [facility] [address] [place] [address] [address] [place], [address] [place] [address] Office: 10/11/22 2340 <Electronically signed by Roberto Carlos Sesay MD> Cosigner Signature (if applicable): CC: Dr. Roberto Carlos eSsay MD; No Primary Care Physician~ Signed [facility] Work Phone: 1(984) 275-110705-05-2023 Miscellaneous Notes* Telephone Encounter - Bernadine San RN - 10/11/2022 8:34 PM EDT Reason for Call: Severe right sided abdominal pain Outcome: Go to ED now. Patient acknowledges understanding and states she will go to ED now. Reason for Disposition [1] SEVERE pain (e.g., excruciating) AND [2] present > 1 hour Protocols used: Abdominal Pain - Sqhyto-XFPID-SG Patient states she started period yesterday, started having abdominal pain. The pain has increased and is excruciating on her right side. documented in this encounterOhio[facility]12-04-2022 History of Present illness Narrative* Almaz Ha APRN.BATOOL - 05/12/2022 2:48 PM EST Subjective The history is provided by the patient. No sign language interpreter was used. HPI Ottoniel Osman is a [...] have confirmed and edited as necessary, the [facility] Review of Systems Constitutional: Negative for chills [...] evaluation. Almaz Ha APRN.CNP documented in this encounterOhiohealth Dublin [facility] Hospital12-04-2022 Instructions* Patient Instructions* Almaz Ha APRN.CNP [...] breath, inability to swallow. documented in this encounterOhiohealth Dublin [facility] Hospital11-19-2022 History of Present illness Narrative* Krishan [...] (Patient not taking: Reported on 12/17/2021 ) XGJ639-rrge-Tpulrmq--rbs ( PLUS DHA) 18 mg iron-800 mcg-290 [...] plan. Krishan Wing APRN.BATOOL documented in this encounterOhiohealth Dublin [facility] Hospital08-31-2022 Miscellaneous Notes* Telephone Encounter - Abbey Castillo RN - 02/06/2022 10:58 AM EDT Patient was seen at urgent care yesterday. Was put on Doxycycline yesterday for axillary infection.Tested negative for BV, trich and yeast yesterday. I called patent and she states discharge is whitish and smells like ammonia. No itching. Please advise documented in this encounterOhiohealth Dublin [facility] Hospital08-30-2022 Instructions* Patient Instructions* Meri Mehta APRN.CNP [...] or shots ordered by your doctor Chlamydia (Wbq-pex-zt-ah) Yes Often no symptoms Pills ordered by [...] swelling, or soreness around the vagina. Copyright 6810-1558 The [facility]. All rights reserved. This information is provided by the [facility] and is not intended to replace the medical advice of your doctor or health care provider. Please consult your health care provider for advice about a specific medical condition. For additional written health information, please contact the [facility] at the [facility] or toll-free extension [phone]. This document was last reviewed on: 2004 index#3960 ABSCESS (BOIL): You have a skin abscess, [...] drainage after 3-4 days. documented in this encounterOhiohealth Dublin Methodist Hospital08-30-2022 History of Present illness Narrative* Meri Mehta APRN.BATOOL - 02/05/2022 4:54 PM EDT This note was created using [employer]. Subjective Ottoniel Osman is a 21 year [...] history is provided by the patient. No sign language interpreter was used. Abscess This is a new [...] (Patient not taking: Reported on 12/17/2021 ) DXM086-ikvx-Oghkezk--kue ( PLUS DHA) 18 mg iron-800 mcg-290 [...] 78 kg (172 lb) LMP (LMP Unknown) TvI770% BMI 29.99 kg/m Physical Exam Vitals and [...] 02/07/22 Meri Mehta APRN.CNP documented in this encounterOhiohealth Dublin Methodist Hospital07-26-2022 History of Present illness Narrative* Janelle Ennis APRN.CNP - 01/01/2022 3:22 PM EDT Ottoniel is a 21 year old patient who presents for Nexplanon insertion. Pt is . VITALS: BP 102/64 Wt 164 lb (74.4kg) test: negative Nexplanon lot #: [id number] Exp date: 12/08/2023 UNIVERSAL PROTOCOL / SAFETY [...] Care Visit completed when applicable. Janelle Ennis APRN.EDITORIAL ASSISTANT TECHNIQUE: Patient placed in supine position with [...] backup contraception for 7 days. Janelle Ennis APRN.EDITORIAL ASSISTANT documented in this encounterOhiohealth Dublin Methodist Hospital07-26-2022 Instructions* Patient Instructions* Tamiko Ortiz LPN [...] days to prevent . documented in this encounterOhiohealth Dublin Methodist Hospital07-25-2022 History of Present illness Narrative* Karli Jacinto MD - 12/31/2021 3:03 PM EDT [employer] Director offered: Patient declines. VISIT Ottoniel Osman is a 21 year old year old here for visit. Delivery Summary: ROS/ Recovery: Feeding: Bottle feeding problems: None Menses since delivery: n/a Menstrual pattern prior to : Regular periods [place] since delivery: Not resumed Depression: denies symptoms [...] trimester 05/21/2021 11/14/21- ALLEN negative. 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 SW Depression [...] external genitalia normal, normal Bartholin's glands, urethra, [place]'s glands, no vulvar lesions, no cervical lesions, [...] PRN Karli Jacinto MD documented in this encounterOhiohealth Dublin [facility] Hospital07-11-2022 History of Present illness Narrative* Viky Stubbs APRN.[facility] - 12/17/2021 3:10 PM EDT VISIT/ Problem [...] external genitalia normal, normal Bartholin's glands, urethra, [place]'s glands, no cervical lesions, good vaginal support, physiologic discharge present, normal appearing perineal body and perianal region, vaginal laceration well approximated, no erythema and tissue healing appropriately ASSESSMENT AND PLAN: 21 year old status post with normal course. Contraception plan: Nexplanon Follow up: already scheduled 6 week visit Viky Stubbs APRN.CNM documented in this encounterOhiohealth Dublin [facility] Hospital07-11-2022 Miscellaneous Notes* Telephone Encounter - Tomasa Bhandari RN - 12/17/2021 11:48 AM EDT Patient called and appointment scheduled. Tomasa Bhandari RN * Telephone Encounter - Viky Stubbs APRN.CNM - 12/17/2021 11:41 AM EDT Yes! I can see her today as needed. Viky Stubbs APRN.CNM * Telephone Encounter - Tomasa Bhandari RN - 12/17/2021 10:54 AM EDT Patient [...] put in a 15 minute spot? Tomasa Bhandari RN documented in this encounterOhiohealth Dublin Methodist Hospital06-13-2022 History of Present illness Narrative* Rajwinder Marroquin RN - 11/19/2021 8:28 AM EDT Patient delivered via by Dr. Jacinto on 11/18/21 at [facility]. See OB history. Rajwinder Marroquin RN documented in this encounterOhiohealth Dublin Methodist Hospital06-10-2022 Miscellaneous Notes* Quick Notes - Meri [...] percentile Meri Chapman APRN.CNM documented in this encounterOhiohealth Dublin Methodist Hospital06-10-2022 Instructions* Patient Instructions* Oralia Peraza MA - 11/16/2021 3:02 PM EDT SEQUENTIAL SCREENINGS The [facility] offers sequential screenings for women who [...] testing. It will require an appointment withour residential gas heat technician. This is not an ultrasound performed [...] the above symptoms, contact our office at [phone] and ask to speak with anurse. After hours, you can call [facility] at [phone] OR call [facility] at [phone] ask to have the doctor operational risk consultant paged. If you consider this an emergency, dial 9-1- or go to your nearest emergency department. NEED HELP? Are you dealing with a violent or abusive relationship? Are you a victim of rape or sexual assult? Call [facility] ([place]) 24 hour Crisis Hotline: 922.606.4803 or 352-447-7786. MANUAL Your Guide to a Healthy manual is now on-line. Visit [email or web address] to download your free copy documented in this encounterOhiohealth Dublin [facility] Hospital06-03-2022 Miscellaneous Notes* Quick Notes - Meri [...] time. Meri Chapman APRN.CNM documented in this encounterOhiohealth Dublin [facility] Hospital06-03-2022 Instructions* Patient Instructions* Oralia Peraza MA - 11/09/2021 2:20 PM EDT SEQUENTIAL SCREENINGS The [facility] offers sequential screenings for women who [...] testing. It will require an appointment withour residential gas heat technician. This is not an ultrasound performed [...] the above symptoms, contact our office at [phone] and ask to speak with anurse. After hours, you can call doctors registry at [phone] OR call [facility] at [phone] ask to have the doctor operational risk consultant paged. If you consider this an emergency, dial 91-3 or go to your nearest emergency department. NEED HELP? Are you dealing with a violent or abusive relationship? Are you a victim of rape or sexual assult? Call [facility] ([place]) 24 hour Crisis Hotline: 935.730.5859 or 478-633-8559. MANUAL Your Guide to a Healthy manual is now on-line. Visit [email or web address] to download your free copy documented in this encounterOhiohealth Dublin [facility] Hospital05-24-2022 Miscellaneous Notes* Quick Notes - Zeina [...] in Zeina Wing MD documented in this encounterOhiohealth Dublin Methodist Hospital05-24-2022 Instructions* Patient Instructions* Margaret Francis Ma - 10/30/2021 3:06 PM EDT SEQUENTIAL SCREENINGS The [facility] offers sequential screenings for women who [...] testing. It will require an appointment withour residential gas heat technician. This is not an ultrasound performed [...] the above symptoms, contact our office at [phone] and ask to speak with anurse. After hours, you can call doctors registry at [phone] OR call [facility] at [phone] ask to have the doctor operational risk consultant paged. If you consider this an emergency, dial 7--6 or go to your nearest emergency department. NEED HELP? Are you dealing with a violent or abusive relationship? Are you a victim of rape or sexual assult? Call [facility] ([place]) 24 hour Crisis Hotline: 335.518.1471 or 715-308-3982. MANUAL Your Guide to a Healthy manual is now on-line. Visit [email or web address] to download your free copy documented in this encounterOhiohealth Dublin [facility] Hospital05-19-2022 Miscellaneous Notes* Quick Notes - Zeina [...] reviewed. Zeina Wing MD documented in this encounterOhiohealth Dublin [facility] Hospital05-19-2022 Instructions* Patient Instructions* Margaret Francis Ma - 10/25/2021 2:17 PM EDT SEQUENTIAL SCREENINGS The [facility] offers sequential screenings for women who [...] testing. It will require an appointment withour residential gas heat technician. This is not an ultrasound performed [...] the above symptoms, contact our office at [phone] and ask to speak with anurse. After hours, you can call doctors registry at [phone] OR call [facility] at [phone] ask to have the doctor operational risk consultant paged. If you consider this an emergency, dial 9--1 or go to your nearest emergency department. NEED HELP? Are you dealing with a violent or abusive relationship? Are you a victim of rape or sexual assult? Call [facility] ([place]) 24 hour Crisis Hotline: 389.297.4474 or 537-030-9275. MANUAL Your Guide to a Healthy manual is now on-line. Visit [email or web address] to download your free copy documented in this encounterOhiohealth Dublin [facility] Hospital05-16-2022 Miscellaneous Notes* Telephone Encounter - Colette [...] only for 1 dose. documented in this encounterOhiohealth Dublin [facility] Hospital05-16-2022 Miscellaneous Notes* Telephone Encounter - Karyna Roberts MD - 10/22/2021 8:18 AM EDT See result noted Azithromycin sent in documented in this encounterOhiohealth Dublin [facility] Hospital05-13-2022 Miscellaneous Notes* Quick Notes - Karyna [...] up Karyna Roberts DO documented in this encounterOhiohealth Dublin [facility] Hospital05-13-2022 Instructions* Patient Instructions* Margaret Francis Ma - 10/19/2021 10:16 AM EDT SEQUENTIAL SCREENINGS The [facility] offers sequential screenings for women who [...] testing. It will require an appointment withour residential gas heat technician. This is not an ultrasound performed [...] the above symptoms, contact our office at [phone] and ask to speak with anurse. After hours, you can call doctors registry at [phone] OR call [facility] at [phone] ask to have the doctor operational risk consultant paged. If you consider this an emergency, dial 02-07-1 or go to your nearest emergency department. NEED HELP? Are you dealing with a violent or abusive relationship? Are you a victim of rape or sexual assult? Call [facility] ([place]) 24 hour Crisis Hotline: 998.978.2872 or 889-040-4662. MANUAL Your Guide to a Healthy manual is now on-line. Visit [email or web address] to download your free copy documented in this encounterOhiohealth Dublin [facility] Hospital05-13-2022 Miscellaneous Notes* Telephone Encounter - Rajwinder Marroquin RN - 10/19/2021 9:08 AM EDT Scheduled for this morning with KJ. Rajwinder Marroquin RN documented in this encounterOhiohealth Dublin [facility] Hospital05-05-2022 Miscellaneous Notes* Quick Notes - Yusra [...] reviewed Yusra Villegas MD documented in this encounterOhiohealth Dublin [facility] Hospital05-05-2022 Instructions* Patient Instructions* Anne Marie Gilliam Ma - 10/11/2021 2:24 PM EDT SEQUENTIAL SCREENINGS The [facility] offers sequential screenings for women who [...] testing. It will require an appointment withour residential gas heat technician. This is not an ultrasound performed [...] the above symptoms, contact our office at [phone] and ask to speak with anurse. After hours, you can call doctors registry at [phone] OR call [facility] at [phone] ask to have the doctor operational risk consultant paged. If you consider this an emergency, dial 91-7 or go to your nearest emergency department. NEED HELP? Are you dealing with a violent or abusive relationship? Are you a victim of rape or sexual assult? Call [facility] ([place]) 24 hour Crisis Hotline: 791.603.5916 or 454-965-3238. MANUAL Your Guide to a Healthy manual is now on-line. Visit [email or web address] to download your free copy documented in this encounterOhiohealth Dublin [facility] Hospital04-20-2022 Miscellaneous Notes* Quick Notes - Yusra [...] counts Yusra Villegas MD documented in this encounterOhiohealth Dublin [facility] Hospital04-20-2022 Instructions* Patient Instructions* Anne Marie Gilliam Nadiya - 09/26/2021 3:29 PM EDT SEQUENTIAL SCREENINGS The [facility] offers sequential screenings for women who [...] testing. It will require an appointment withour residential gas heat technician. This is not an ultrasound performed [...] the above symptoms, contact our office at [phone] and ask to speak with anurse. After hours, you can call doctors registry at [phone] OR call [facility] at [phone] ask to have the doctor operational risk consultant paged. If you consider this an emergency, dial 9-1-6 or go to your nearest emergency department. NEED HELP? Are you dealing with a violent or abusive relationship? Are you a victim of rape or sexual assult? Call [facility] ([place]) 24 hour Crisis Hotline: 211.590.4803 or 040-095-7667. MANUAL Your Guide to a Healthy manual is now on-line. Visit [email or web address] to download your free copy documented in this encounterOhiohealth Dublin [facility] Hospital04-08-2022 Miscellaneous Notes* Telephone Encounter - Tamiko Ortiz LPN - 09/14/2021 9:16 AM EDT Patient scheduled documented in this encounterOhiohealth Dublin [facility] Hospital04-07-2022 Miscellaneous Notes* Telephone Encounter - Rajwinder [...] had a positive chlamydia. documented in this encounterOhiohealth Dublin Methodist Hospital04-06-2022 History of Present illness Narrative* Breonna [...] severely ill: Yes Patient denies history of Guillain-Waldorf Syndrome (a severe paralytic illness): Yes Tdap Adacel injection was given without incident. See immunizations for details of immunizations administered today. VIS sheet provided: Yes Provider Karyna Roberts DO was present in office at time of injection. Breonna Serna MA documented in this encounterOhiohealth Dublin [facility] Hospital04-06-2022 Miscellaneous Notes* Quick Notes - Karyna [...] wks Karyna Roberts DO documented in this encounterOhiohealth Dublin [facility] Hospital04-06-2022 Instructions* Patient Instructions* Breonna Serna MA - 09/12/2021 4:08 PM EDT SEQUENTIAL SCREENINGS The [facility] offers sequential screenings for women who [...] testing. It will require an appointment withour residential gas heat technician. This is not an ultrasound performed [...] the above symptoms, contact our office at [phone] and ask to speak with anurse. After hours, you can call doctors registry at [phone] OR call [facility] at [phone] ask to have the doctor operational risk consultant paged. If you consider this an emergency, dial 9-3 or go to your nearest emergency department. NEED HELP? Are you dealing with a violent or abusive relationship? Are you a victim of rape or sexual assult? Call [facility] ([place]) 24 hour Crisis Hotline: 228.200.5494 or 574-155-2574. MANUAL Your Guide to a Healthy manual is now on-line. Visit [email or web address] to download your free copy documented in this encounterOhiohealth Dublin [facility] Hospital12-13-2021 History of Past illness Narrative* Problem Noted Date Resolved Date Supervision of high risk in [facility] 05/21/2021 12/03/2021 Chlamydia trachomatis infect ion in in first trimester 05/21/2021 12/03/2021 Overview: 11/14/21- ALLEN negative. Viky Stubbs APRN.CNM Chlamydia positive again 10/19/21. RAJIV Supervision of normal first teen in first trimester 08/14/2017 05/04/2018 Overview: 11/04/17 - patient on house arrest - KJ 10/21/17 - patient very stressed over being in residential for 90 days - TONNY Chlamydia trachomatis [...] 05/09/2017 . She sees a counselor at [facility]. Discussed increased risks of depression during and and importance of reporting the development or worsening of symptoms should they occur.Pt states she had suicidal thoughts in the past but none x 2 months. TKRN Patient requested diagnostic testing 07/03/2017 02/20/2018 Overview: 07/03/2017Patient desires nuchal ultrasound. TKRN Pelvic pain in 07/03/2017 018 Overview: 07/03/2017 Patient states she went to [facility] for pelvic pain 06/26/2017. She denies any bleeding or pain since then. Upon reviewof [facility] records [place]CG [place] [address]. Ultrasound revealed gestational sac with no demonstrated pole @ 6w1d. Discussed with Dr Wing. Quantitative HCG ordered. Patient given miscarriage precautions. She is to call/come in if pain reocurrs, the development of bleeding or PRN problems. Dysmenorrhea 05/31/2013 04/23/2021 Fatigue 05/31/2013 04/23/2021 Headache(784.0) 04/28/2011 04/23/2021 Short stature 08/14/2017 documented as of this encounter (statuses as of 12/17/2021) [facility] History of Past illness Narrative* Problem Noted Date Resolved Date [facility] 12/03/2021 Chlamydia trachomatis infect ion in in first trimester 05/21/2021 12/03/2021 Overview: 11/14/21- ALLEN negative. Viky Stubbs APRN.JUSTYNM Chlamydia positive again 10/19/21. Supervision of normal first teen in first trimester 08/14/2017 05/04/2018 Overview: 11/04/17 - patient on house arrest - 10/21/17 - patient very stressed over being in residential for 90 days - Chlamydia trachomatis infect [...] Overview: 07/03/2017 Patient states she went to [facility] for pelvic pain 06/26/2017. She denies any bleeding or pain since then. Upon reviewof [facility] records [place] HCG was [address]. Ultrasound revealed gestational sac with no demonstrated pole @ 6w1d. Discussed with Dr Wing. Quantitative HCG ordered. Patient given miscarriage precautions. She is to call/come in if pain reocurrs, the development of bleeding or PRN problems. Dysmenorrhea 05/31/2013 04/23/2021 Fatigue 05/31/2013 04/23/2021 Headache(784.0) 04/28/2011 04/23/2021 Short stature 08/14/2017 documented as of this encounter (statuses as of 12/17/2021) [facility] of Past illness Narrative* Problem Noted Date Resolved Date Supervision of high risk in [facility] 05/21/2021 12/03/2021 Chlamydia trachomatis infect ion in in first trimester 05/21/2021 12/03/2021 Overview: 11/14/21- ALLEN negative. Viky Stubbs APRN.JUSTYNM Chlamydia positive again 10/19/21. Supervision of normal first teen in first trimester 08/14/2017 05/04/2018 Overview: 11/04/17 - patient on house arrest - KJ 10/21/17 - patient very stressed over being in residential for 90 days - Chlamydia trachomatis infect [...] Overview: 07/03/2017 Patient states she went to [facility] for pelvic pain 06/26/2017. She denies any bleeding or pain since then. Upon reviewof [facility] records [place] HCG [place] 10682. Ultrasound revealed gestational sac with no demonstrated pole @ 6w1d. Discussed with Dr Wing. Quantitative HCG ordered. Patient given miscarriage precautions. She is to call/come in if pain reocurrs, the development of bleeding or PRN problems. Dysmenorrhea 05/31/2013 04/23/2021 Fatigue 05/31/2013 04/23/2021 Headache(784.0) 04/28/2011 04/23/2021 Short stature 08/14/2017 documented as of this encounter (statuses as of 12/31/2021) [facility] of Past illness Narrative* Problem Noted Date Resolved Date [facility] 12/03/2021 Chlamydia trachomatis infect ion in in first trimester 05/21/2021 12/03/2021 Overview: 11/14/21- ALLEN negative. Viky Stubbs APRN.JUSTYNM Chlamydia positive again 10/19/21. Supervision of normal first teen in first trimester 08/14/2017 05/04/2018 Overview: 11/04/17 - patient on house arrest - 10/21/17 - patient very stressed over being in residential for 90 days - Chlamydia trachomatis infect [...] 05/09/2017 . She sees a counselor at [facility]. Discussed increased risks of depression during and and importance of reporting the development or worsening of symptoms should they occur.Pt states she had suicidal thoughts in the past but none x 2 months. TKRN Patient requested diagnostic testing 07/03/2017 02/20/2018 Overview: 07/03/2017Patient desires nuchal ultrasound. TKRN Pelvic pain in 07/03/2017 018 Overview: 07/03/2017 Patient states she went to [facility] for pelvic pain 06/26/2017. She denies any bleeding or pain since then. Upon reviewof [facility] records [place] HCG [place] 20101. Ultrasound revealed gestational sac with no demonstrated pole @ 6w1d. Discussed with Dr Wing. Quantitative HCG ordered. Patient given miscarriage precautions. She is to call/come in if pain reocurrs, the development of bleeding or PRN problems. Dysmenorrhea 05/31/2013 04/23/2021 Fatigue 05/31/2013 04/23/2021 Headache(784.0) 04/28/2011 04/23/2021 Short stature 08/14/2017 documented as of this encounter (statuses as of 01/01/2022) [facility]12-13-2021 History of Past illness Narrative* Problem Noted Date Resolved Date [facility] 12/03/2021 Chlamydia trachomatis infect ion in in first trimester 05/21/2021 12/03/2021 Overview: 11/14/21- ALLEN negative. Viky Stubbs APRN.CNM Chlamydia positive again 10/19/21. Supervision of normal first teen in first trimester 08/14/2017 05/04/2018 Overview: 11/04/17 - patient on house arrest - 10/21/17 - patient very stressed over being in residential for 90 days - Chlamydia trachomatis infect [...] Overview: 07/03/2017 Patient states she went to [facility] for pelvic pain 06/26/2017. She denies any bleeding or pain since then. Upon reviewof [facility] records [place] HCG [place] 37281. Ultrasound revealed gestational sac with no demonstrated pole @ 6w1d. Discussed with Dr Wing. Quantitative HCG ordered. Patient given miscarriage precautions. She is to call/come in if pain reocurrs, the development of bleeding or PRN problems. Dysmenorrhea 05/31/2013 04/23/2021 Fatigue 05/31/2013 04/23/2021 Headache(784.0) 04/28/2011 04/23/2021 Short stature 08/14/2017 documented as of this encounter (statuses as of 02/05/2022) [facility]12-13-2021 History of Past illness Narrative* Problem Noted Date Resolved Date Supervision of high risk in [facility] 05/21/2021 12/03/2021 Chlamydia trachomatis infect ion in in first trimester 05/21/2021 12/03/2021 Overview: 11/14/21- ALLEN negative. Viky Stubbs APRN.JUSTYNM Chlamydia positive again 10/19/21. Supervision of normal first teen in first trimester 08/14/2017 05/04/2018 Overview: 11/04/17 - patient on house arrest - KJ 10/21/17 - patient very stressed over being in residential for 90 days - Chlamydia trachomatis infect [...] Overview: 07/03/2017 Patient states she went to [facility] for pelvic pain 06/26/2017. She denies any bleeding or pain since then. Upon reviewof [facility] records [place] HCG [place] 82338. Ultrasound revealed gestational sac with no demonstrated pole @ 6w1d. Discussed with Dr Wing. Quantitative HCG ordered. Patient given miscarriage precautions. She is to call/come in if pain reocurrs, the development of bleeding or PRN problems. Dysmenorrhea 05/31/2013 04/23/2021 Fatigue 05/31/2013 04/23/2021 Headache(784.0) 04/28/2011 04/23/2021 Short stature 08/14/2017 documented as of this encounter (statuses as of 02/06/2022) [facility]12-13-[facility]21 History of Past illness Narrative* Problem Noted Date Resolved Date Supervision of high risk in second [facility] 05/21/2021 12/03/2021 Chlamydia trachomatis infect ion in in first trimester 05/21/2021 12/03/2021 Overview: 11/14/21- ALLEN negative. Viky Stubbs APRN.JUSTYNM Chlamydia positive again 10/19/21. Supervision of normal first teen in first trimester 08/14/2017 05/04/2018 Overview: 11/04/17 - patient on house arrest - 10/21/17 - patient very stressed over being in residential for 90 days - Chlamydia trachomatis infect [...] since she was treated. Do ALLEN at .v. Sharon Solares CNM Tobacco use during , [...] Overview: 07/03/2017 Patient states she went to [facility] for pelvic pain 06/26/2017. She denies any bleeding or pain since then. Upon reviewof [facility] records [place] HCG was 24654. Ultrasound revealed gestational sac with no demonstrated pole @ 6w1d. Discussed with Dr Wing. Quantitative HCG ordered. Patient given miscarriage precautions. She is to call/come in if pain reocurrs, the development of bleeding or PRN problems. Dysmenorrhea 05/31/2013 04/23/2021 Fatigue 05/31/2013 04/23/2021 Headache(784.0) 04/28/2011 04/23/2021 Short stature 08/14/2017 documented as of this encounter (statuses as of 04/27/2022) [facility]12[facility] History of Past illness Narrative* Problem Noted Date Resolved Date [facility] 12/03/2021 Chlamydia trachomatis infect ion in in first trimester 05/21/2021 12/03/2021 Overview: 11/14/21- ALLEN negative. Viky Stubbs APRN.JUSTYNM Chlamydia positive again 10/19/21. Supervision of normal first teen in first trimester 08/14/2017 05/04/2018 Overview: 11/04/17 - patient on house arrest - 10/21/17 - patient very stressed over being in residential for 90 days - Chlamydia trachomatis infect [...] 05/09/2017 . She sees a counselor at [facility]. Discussed increased risks of depression during and and importance of reporting the development or worsening of symptoms should they occur.Pt states she had suicidal thoughts in the past but none x 2 months. TKRN Patient requested diagnostic testing 07/03/2017 02/20/2018 Overview: 07/03/2017Patient desires nuchal ultrasound. TKRN Pelvic pain in 07/03/2017 018 Overview: 07/03/2017 Patient states she went to [facility] for pelvic pain 06/26/2017. She denies any bleeding or pain since then. Upon reviewof [facility] records [place] HCG was 40619. Ultrasound revealed gestational sac with no demonstrated pole @ 6w1d. Discussed with Dr Wing. Quantitative HCG ordered. Patient given miscarriage precautions. She is to call/come in if pain reocurrs, the development of bleeding or PRN problems. Dysmenorrhea 05/31/2013 04/23/2021 Fatigue 05/31/2013 04/23/2021 Headache(784.0) 04/28/2011 04/23/2021 Short stature 08/14/2017 documented as of this encounter (statuses as of 05/12/2022) [facility] History of Past illness Narrative* Problem Noted Date Resolved Date [facility] 12/03/2021 Chlamydia trachomatis infect ion in in first trimester 05/21/2021 12/03/2021 Overview: 11/14/21- ALLEN negative. Viky Stubbs APRN.MARGARITA Chlamydia positive again 10/19/21. Supervision of normal first teen in first trimester 08/14/2017 05/04/2018 Overview: 11/04/17 - patient on house arrest - 10/21/17 - patient very stressed over being in residential for 90 days - Chlamydia trachomatis infect [...] Overview: 07/03/2017 Patient states she went to [facility] for pelvic pain 06/26/2017. She denies any bleeding or pain since then. Upon reviewof [facility] records quantitative HCG was 78149. Ultrasound revealed gestational sac with no demonstrated pole @ 6w1d. Discussed with Dr Wing. Quantitative HCG ordered. Patient given miscarriage precautions. She is to call/come in if pain reocurrs, the development of bleeding or PRN problems. Dysmenorrhea 05/31/2013 04/23/2021 Fatigue 05/31/2013 04/23/2021 Headache(784.0) 04/28/2011 04/23/2021 Short stature 08/14/2017 documented as of this encounter (statuses as of 10/12/2022) [facility] History of Past illness Narrative* Problem [...] - patient very stressed over being in residential for 90 days - Chlamydia trachomatis infect [...] 05/09/2017 . She sees a counselor at [facility]. Discussed increased risks of depression during and and importance of reporting the development or worsening of symptoms should they occur.Pt states she had suicidal thoughts in the past but none x 2 months. TKRN Patient requested diagnostic testing 07/03/2017 02/20/2018 Overview: 07/03/2017Patient desires nuchal ultrasound. TKRN Pelvic pain in 07/03/2017 Overview: 07/03/2017 Patient states she went to [facility] for pelvic pain 06/26/2017. She denies any bleeding or pain since then. Upon reviewof [facility] records quantitative HCG was 68852. Ultrasound revealed gestational sac with no demonstrated pole @ 6w1d. Discussed with Dr Wing. Quantitative HCG ordered. Patient given miscarriage precautions. She is to call/come in if pain reocurrs, the development of bleeding or PRN problems. Dysmenorrhea 05/31/2013 04/23/2021 Fatigue 05/31/2013 04/23/2021 Headache(784.0) 04/28/2011 04/23/2021 Short stature 08/14/2017 documented as of this encounter (statuses as of 01/13/2023) [facility]12[facility] History of Past illness Narrative* Problem [...] - patient very stressed over being in residential for 90 days - Chlamydia trachomatis infect [...] 05/09/2017 . She sees a counselor at [facility]. Discussed increased risks of depression during and and importance of reporting the development or worsening of symptoms should they occur.Pt states she had suicidal thoughts in the past but none x 2 months. TKRN Patient requested diagnostic testing 07/03/2017 02/20/2018 Overview: 07/03/2017Patient desires nuchal ultrasound. TKRN Pelvic pain in 07/03/2017 Overview: 07/03/2017 Patient states she went to [facility] for pelvic pain 06/26/2017. She denies any bleeding or pain since then. Upon reviewof [facility] records quantitative HCG was 24313. Ultrasound revealed gestational sac with no demonstrated pole @ 6w1d. Discussed with Dr Wing. Quantitative HCG ordered. Patient given miscarriage precautions. She is to call/come in if pain reocurrs, the development of bleeding or PRN problems. Dysmenorrhea 05/31/2013 04/23/2021 Fatigue 05/31/2013 04/23/2021 Headache(784.0) 04/28/2011 04/23/2021 Short stature 08/14/2017 documented as of this encounter (statuses as of 01/16/2023) [facility] History of Past illness Narrative* Problem [...] - patient very stressed over being in residential for 90 days - KJ Chlamydia trachomatis [...] Overview: 07/03/2017 Patient states she went to [facility] for pelvic pain 06/26/2017. She denies any bleeding or pain since then. Upon reviewof [facility] records quantitative HCG was 98864. Ultrasound revealed gestational sac with no demonstrated pole @ 6w1d. Discussed with Dr Wing. Quantitative HCG ordered. Patient given miscarriage precautions. She is to call/come in if pain reocurrs, the development of bleeding or PRN problems. Dysmenorrhea 05/31/2013 04/23/2021 Fatigue 05/31/2013 04/23/2021 Headache(784.0) 04/28/2011 04/23/2021 Short stature 08/14/2017 documented as of this encounter (statuses as of 01/16/2023) [facility] History of Past illness Narrative* Problem [...] - patient very stressed over being in residential for 90 days - Chlamydia trachomatis infect [...] Overview: 07/03/2017 Patient states she went to [facility] for pelvic pain 06/26/2017. She denies any bleeding or pain since then. Upon reviewof [facility] records quantitative HCG was 11577. Ultrasound revealed gestational sac with no demonstrated pole @ 6w1d. Discussed with Dr Wing. Quantitative HCG ordered. Patient given miscarriage precautions. She is to call/come in if pain reocurrs, the development of bleeding or PRN problems. Dysmenorrhea 05/31/2013 04/23/2021 Fatigue 05/31/2013 04/23/2021 Headache(784.0) 04/28/2011 04/23/2021 Short stature 08/14/2017 documented as of this encounter (statuses as of 03/04/2023) [facility] History of Past illness Narrative* Problem [...] - patient very stressed over being in residential for 90 days - Chlamydia trachomatis infect [...] 05/09/2017 . She sees a counselor at [facility]. Discussed increased risks of depression during and and importance of reporting the development or worsening of symptoms should they occur.Pt states she had suicidal thoughts in the past but none x 2 months. TKRN Patient requested diagnostic testing 07/03/2017 02/20/2018 Overview: 07/03/2017Patient desires nuchal ultrasound. TKRN Pelvic pain in 07/03/2017 Overview: 07/03/2017 Patient states she went to [facility] for pelvic pain 06/26/2017. She denies any bleeding or pain since then. Upon reviewof [facility] records [place] HCG was 15572. Ultrasound revealed gestational sac with no demonstrated pole @ 6w1d. Discussed with Dr Wing. Quantitative HCG ordered. Patient given miscarriage precautions. She is to call/come in if pain reocurrs, the development of bleeding or PRN problems. Dysmenorrhea 05/31/2013 04/23/2021 Fatigue 05/31/2013 04/23/2021 Headache(784.0) 04/28/2011 04/23/2021 Short stature 08/14/2017 documented as of this encounter (statuses as of 05/14/2023) [facility] History of Past illness Narrative* Problem Noted Date Resolved Date Supervision of normal first teen in first trimester 08/14/2017 05/04/2018 Overview: 11/04/17 - patient on house arrest - KJ 10/21/17 - patient very stressed over being in residential for 90 days - KJ Chlamydia trachomatis [...] 05/09/2017 . She sees a counselor at [facility]. Discussed increased risks of depression during and and importance of reporting the development or worsening of symptoms should they occur.Pt states she had suicidal thoughts in the past but none x 2 months. TKRN Patient requested diagnostic testing 07/03/2017 02/20/2018 Overview: 07/03/2017Patient desires nuchal ultrasound. TKRN Pelvic pain in 07/03/2017 018 Overview: 07/03/2017 Patient states she went to [facility] for pelvic pain 06/26/2017. She denies any bleeding or pain since then. Upon reviewof [facility] records [place] HCG [place] 34811. Ultrasound revealed gestational sac with no demonstrated pole @ 6w1d. Discussed with Dr Wing. Quantitative HCG ordered. Patient given miscarriage precautions. She is to call/come in if pain reocurrs, the development of bleeding or PRN problems. Dysmenorrhea 05/31/2013 04/23/2021 Fatigue 05/31/2013 04/23/2021 Headache(784.0) 04/28/2011 04/23/2021 Short stature 08/14/2017 documented as of this encounter (statuses as of 09/12/2021) [facility] History of Past illness Narrative* Problem Noted Date Resolved Date Supervision of normal first teen in first trimester 08/14/2017 05/04/2018 Overview: 11/04/17 - patient on house arrest - KJ 10/21/17 - patient very stressed over being in residential for 90 days - KJ Chlamydia trachomatis [...] 05/09/2017 . She sees a counselor at [facility]. Discussed increased risks of depression during and and importance of reporting the development or worsening of symptoms should they occur.Pt states she had suicidal thoughts in the past but none x 2 months. TKRN Patient requested diagnostic testing 07/03/2017 02/20/2018 Overview: 07/03/2017Patient desires nuchal ultrasound. TKRN Pelvic pain in 07/03/2017 018 Overview: 07/03/2017 Patient states she went to [facility] for pelvic pain 06/26/2017. She denies any bleeding or pain since then. Upon reviewof [facility] records [place] HCG was 39005. Ultrasound revealed gestational sac with no demonstrated pole @ 6w1d. Discussed with Dr Wnig. Quantitative HCG ordered. Patient given miscarriage precautions. She is to call/come in if pain reocurrs, the development of bleeding or PRN problems. Dysmenorrhea 05/31/2013 04/23/2021 Fatigue 05/31/2013 04/23/2021 Headache(784.0) 04/28/2011 04/23/2021 Short stature 08/14/2017 documented as of this encounter (statuses as of 09/13/2021) [facility] History of Past illness Narrative* Problem Noted Date Resolved Date Supervision of normal first teen in first trimester 08/14/2017 05/04/2018 Overview: 11/04/17 - patient on house arrest - KJ 10/21/17 - patient very stressed over being in residential for 90 days - KJ Chlamydia trachomatis [...] Overview: 07/03/2017 Patient states she went to [facility] for pelvic pain 06/26/2017. She denies any bleeding or pain since then. Upon reviewof [facility] records [place] HCG was 73030. Ultrasound revealed gestational sac with no demonstrated pole @ 6w1d. Discussed with Dr Wing. Quantitative HCG ordered. Patient given miscarriage precautions. She is to call/come in if pain reocurrs, the development of bleeding or PRN problems. Dysmenorrhea 05/31/2013 04/23/2021 Fatigue 05/31/2013 04/23/2021 Headache(784.0) 04/28/2011 04/23/2021 Short stature 08/14/2017 documented as of this encounter (statuses as of 09/14/2021) [facility] History of Past illness Narrative* Problem Noted Date Resolved Date Supervision of normal first teen in first trimester 08/14/2017 05/04/2018 Overview: 11/04/17 - patient on house arrest - KJ 10/21/17 - patient very stressed over being in residential for 90 days - KJ Chlamydia trachomatis [...] Overview: 07/03/2017 Patient states she went to [facility] for pelvic pain 06/26/2017. She denies any bleeding or pain since then. Upon reviewof [facility] records quantitative HCG was 02743. Ultrasound revealed gestational sac with no demonstrated pole @ 6w1d. Discussed with Dr Wing. Quantitative HCG ordered. Patient given miscarriage precautions. She is to call/come in if pain reocurrs, the development of bleeding or PRN problems. Dysmenorrhea 05/31/2013 04/23/2021 Fatigue 05/31/2013 04/23/2021 Headache(784.0) 04/28/2011 04/23/2021 Short stature 08/14/2017 documented as of this encounter (statuses as of 09/26/2021) [facility] History of Past illness Narrative* Problem Noted Date Resolved Date Supervision of normal first teen in first trimester 08/14/2017 05/04/2018 Overview: 11/04/17 - patient on house arrest - KJ 10/21/17 - patient very stressed over being in residential for 90 days - Chlamydia trachomatis infect [...] Overview: 07/03/2017 Patient states she went to [facility] for pelvic pain 06/26/2017. She denies any bleeding or pain since then. Upon reviewof [facility] records quantitative HCG was 29759. Ultrasound revealed gestational sac with no demonstrated pole @ 6w1d. Discussed with Dr Wing. Quantitative HCG ordered. Patient given miscarriage precautions. She is to call/come in if pain reocurrs, the development of bleeding or PRN problems. Dysmenorrhea 05/31/2013 04/23/2021 Fatigue 05/31/2013 04/23/2021 Headache(784.0) 04/28/2011 04/23/2021 Short stature 08/14/2017 documented as of this encounter (statuses as of 10/11/2021) [facility] History of Past illness Narrative* Problem Noted Date Resolved Date Supervision of normal first teen in first trimester 08/14/2017 05/04/2018 Overview: 11/04/17 - patient on house arrest - KJ 10/21/17 - patient very stressed over being in residential for 90 days - KJ Chlamydia trachomatis infect ion during in first trimester 07/16/2017 05/04/2018 Overview: 11/04/17 - treated 2 weeks ago. ALLEN at next visit. Advised boyfriend needs treatment. Discussed abstaining from intercourse if boyfriend not treated - KJ 07/16/17: will need ALLEN and repeat gc/chlamydia culture at 36 weeks .Yusra Neyhart-Martinez, MD 08/14/17: Patient's boyfriend refused to take [...] Overview: 07/03/2017 Patient states she went to [facility] for pelvic pain 06/26/2017. She denies any bleeding or pain since then. Upon reviewof [facility] records quantitative HCG was 81115. Ultrasound revealed gestational sac with no demonstrated pole @ 6w1d. Discussed with Dr Wing. Quantitative HCG ordered. Patient given miscarriage precautions. She is to call/come in if pain reocurrs, the development of bleeding or PRN problems. Dysmenorrhea 05/31/2013 04/23/2021 Fatigue 05/31/2013 04/23/2021 Headache(784.0) 04/28/2011 04/23/2021 Short stature 08/14/2017 documented as of this encounter (statuses as of 10/12/2021) [facility] History of Past illness Narrative* Problem Noted Date Resolved Date Supervision of normal first teen in first trimester 08/14/2017 05/04/2018 Overview: 11/04/17 - patient on house arrest - 10/21/17 - patient very stressed over being in residential for 90 days - KJ Chlamydia trachomatis [...] Overview: 07/03/2017 Patient states she went to [facility] for pelvic pain 06/26/2017. She denies any bleeding or pain since then. Upon reviewof [facility] records quantitative HCG was . Ultrasound revealed gestational sac with no demonstrated pole @ 6w1d. Discussed with Dr Wing. Quantitative HCG ordered. Patient given miscarriage precautions. She is to call/come in if pain reocurrs, the development of bleeding or PRN problems. Dysmenorrhea 05/31/2013 04/23/2021 Fatigue 05/31/2013 04/23/2021 Headache(784.0) 04/28/2011 04/23/2021 Short stature 08/14/2017 documented as of this encounter (statuses as of 10/19/2021) [facility] History of Past illness Narrative* Problem Noted Date Resolved Date Supervision of normal first teen in first trimester 08/14/2017 05/04/2018 Overview: 11/04/17 - patient on house arrest - KJ 10/21/17 - patient very stressed over being in residential for 90 days - KJ Chlamydia trachomatis [...] Overview: 07/03/2017 Patient states she went to [facility] for pelvic pain 06/26/2017. She denies any bleeding or pain since then. Upon reviewof [facility] records quantitative HCG was 03856. Ultrasound revealed gestational sac with no demonstrated pole @ 6w1d. Discussed with Dr Wing. Quantitative HCG ordered. Patient given miscarriage precautions. She is to call/come in if pain reocurrs, the development of bleeding or PRN problems. Dysmenorrhea 05/31/2013 04/23/2021 Fatigue 05/31/2013 04/23/2021 Headache(784.0) 04/28/2011 04/23/2021 Short stature 08/14/2017 documented as of this encounter (statuses as of 10/19/2021) [facility] History of Past illness Narrative* Problem Noted Date Resolved Date Supervision of normal first teen in first trimester 08/14/2017 05/04/2018 Overview: 11/04/17 - patient on house arrest - KJ 10/21/17 - patient very stressed over being in residential for 90 days - Chlamydia trachomatis infect [...] Overview: 07/03/2017 Patient states she went to [facility] for pelvic pain 06/26/2017. She denies any bleeding or pain since then. Upon reviewof [facility] records quantitative HCG was 87421. Ultrasound revealed gestational sac with no demonstrated pole @ 6w1d. Discussed with Dr Wing. Quantitative HCG ordered. Patient given miscarriage precautions. She is to call/come in if pain reocurrs, the development of bleeding or PRN problems. Dysmenorrhea 05/31/2013 04/23/2021 Fatigue 05/31/2013 04/23/2021 Headache(784.0) 04/28/2011 04/23/2021 Short stature 08/14/2017 documented as of this encounter (statuses as of 10/22/2021) [facility] History of Past illness Narrative* Problem Noted Date Resolved Date Supervision of normal first teen in first trimester 08/14/2017 05/04/2018 Overview: 11/04/17 - patient on house arrest - KJ 10/21/17 - patient very stressed over being in residential for 90 days - KJ Chlamydia trachomatis [...] 05/09/2017 . [facility] Discussed increased risks of depression during and and importance of reporting the development or worsening of symptoms should they occur.Pt states she had suicidal thoughts in the past but none x 2 months. TKRN Patient requested diagnostic testing 07/03/2017 02/20/2018 Overview: 07/03/2017Patient desires nuchal ultrasound. TKRN Pelvic pain in 07/03/2017 018 Overview: 07/03/2017 Patient states she went to [facility] for pelvic pain 06/26/2017. She denies any bleeding or pain since then. Upon reviewof [facility] records [place] HCG [place] 10406. Ultrasound revealed gestational sac with no demonstrated pole @ 6w1d. Discussed with Dr Wing. Quantitative HCG ordered. Patient given miscarriage precautions. She is to call/come in if pain reocurrs, the development of bleeding or PRN problems. Dysmenorrhea 05/31/2013 04/23/2021 Fatigue 05/31/2013 04/23/2021 Headache(784.0) 04/28/2011 04/23/2021 Short stature 08/14/2017 documented as of this encounter (statuses as of 10/22/2021) [facility]03-08[facility]2018 History of Past illness Narrative* Problem Noted Date Resolved Date Supervision of normal first teen in first trimester 08/14/2017 05/04/2018 Overview: 11/04/17 - patient on house arrest - KJ 10/21/17 - patient very stressed over being in residential for 90 days - KJ Chlamydia trachomatis [...] Overview: 07/03/2017 Patient states she went to [facility] for pelvic pain 06/26/2017. She denies any bleeding or pain since then. Upon reviewof [facility] records [place] HCG [place] 14042. Ultrasound revealed gestational sac with no demonstrated pole @ 6w1d. Discussed with Dr Wing. Quantitative HCG ordered. Patient given miscarriage precautions. She is to call/come in if pain reocurrs, the development of bleeding or PRN problems. Dysmenorrhea 05/31/2013 04/23/2021 Fatigue 05/31/2013 04/23/2021 Headache(784.0) 04/28/2011 04/23/2021 Short stature 08/14/2017 documented as of this encounter (statuses as of 10/22/2021) [facility] History of Past illness Narrative* Problem Noted Date Resolved Date Supervision of normal first teen in first trimester 08/14/2017 05/04/2018 Overview: 11/04/17 - patient on house arrest - 10/21/17 - patient very stressed over being in residential for 90 days - Chlamydia trachomatis infect [...] Overview: 07/03/2017 Patient states she went to [facility] for pelvic pain 06/26/2017. She denies any bleeding or pain since then. Upon reviewof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 January 01, 2025 9:24am Chief Complaint [...] section and content) DATE CREATED AUTHOR 11/27/2017 [facility] DATE CREATED AUTHOR AUTHOR'S ORGANIZ ATION 01/10/2021 [facility] DATE CREATED AUTHOR AUTHOR'S ORGANIZ ATION 08/28/2022 [facility] DATE CREATED AUTHOR AUTHOR'S ORGANIZ ATION 04/17/2025 [facility] DATE CREATED AUTHOR AUTHOR'S ORGANIZ ATION 04/20/2025 [facility] Goals (unrecognized section and content) Goals [...] prosecute any alcohol or drug abuse patient.[facility] HospitalIn the event this information is protected by the Federal Confidentiality of Alcohol and Drug Abuse Patient Records regulations: The Federal rules restrict any use of the information to criminally investigate or prosecute any alcohol or drug abuse patient.[facility] HospitalIn the event this information is protected by the Federal Confidentiality of Alcohol and Drug Abuse Patient Records regulations: The Federal rules restrict any use of the information to criminally investigate or prosecute any alcohol or drug abuse patient.[facility] HospitalIn the event this information is protected by the Federal Confidentiality of Alcohol and Drug Abuse Patient Records regulations: The Federal rules restrict any use of the information to criminally investigate or prosecute any alcohol or drug abuse patient.[facility] HospitalIn the event this information is protected by the Federal Confidentiality of Alcohol and Drug Abuse Patient Records regulations: The Federal rules restrict any use of the information to criminally investigate or prosecute any alcohol or drug abuse patient.[facility] HospitalIn the event this information is protected by the Federal Confidentiality of Alcohol and Drug Abuse Patient Records regulations: The Federal rules restrict any use of the information to criminally investigate or prosecute any alcohol or drug abuse patient.[facility] HospitalIn the event this information is protected by the Federal Confidentiality of Alcohol and Drug Abuse Patient Records regulations: The Federal rules restrict any use of the information to criminally investigate or prosecute any alcohol or drug abuse patient.[facility] HospitalIn the event this information is protected by the Federal Confidentiality of Alcohol and Drug Abuse Patient Records regulations: The Federal rules restrict any use of the information to criminally investigate or prosecute any alcohol or drug abuse patient.[facility] HospitalIn the event this information is protected by the Federal Confidentiality of Alcohol and Drug Abuse Patient Records regulations: The Federal rules restrict any use of the information to criminally investigate or prosecute any alcohol or drug abuse patient.[facility] HospitalIn the event this information is protected by the Federal Confidentiality of Alcohol and Drug Abuse Patient Records regulations: The Federal rules restrict any use of the information to criminally investigate or prosecute any alcohol or drug abuse patient.[facility] HospitalIn the event this information is protected by the Federal Confidentiality of Alcohol and Drug Abuse Patient Records regulations: The Federal rules restrict any use of the information to criminally investigate or prosecute any alcohol or drug abuse patient.[facility] HospitalIn the event this information is protected by the Federal Confidentiality of Alcohol and Drug Abuse Patient Records regulations: The Federal rules restrict any use of the information to criminally investigate or prosecute any alcohol or drug abuse patient.[facility] HospitalIn the event this information is protected by the Federal Confidentiality of Alcohol and Drug Abuse Patient Records regulations: The Federal rules restrict any use of the information to criminally investigate or prosecute any alcohol or drug abuse patient.[facility] HospitalIn the event this information is protected by the Federal Confidentiality of Alcohol and Drug Abuse Patient Records regulations: The Federal rules restrict any use of the information to criminally investigate or prosecute any alcohol or drug abuse patient.[facility] HospitalIn the event this information is protected by the Federal Confidentiality of Alcohol and Drug Abuse Patient Records regulations: The Federal rules restrict any use of the information to criminally investigate or prosecute any alcohol or drug abuse patient.[facility] HospitalIn the event this information is protected by the Federal Confidentiality of Alcohol and Drug Abuse Patient Records regulations: The Federal rules restrict any use of the information to criminally investigate or prosecute any alcohol or drug abuse patient.[facility] HospitalIn the event this information is protected by the Federal Confidentiality of Alcohol and Drug Abuse Patient Records regulations: The Federal rules restrict any use of the information to criminally investigate or prosecute any alcohol or drug abuse patient.[facility] HospitalIn the event this information is protected by the Federal Confidentiality of Alcohol and Drug Abuse Patient Records regulations: The Federal rules restrict any use of the information to criminally investigate or prosecute any alcohol or drug abuse patient.[facility] HospitalIn the event this information is protected by the Federal Confidentiality of Alcohol and Drug Abuse Patient Records regulations: The Federal rules restrict any use of the information to criminally investigate or prosecute any alcohol or drug abuse patient.[facility] HospitalIn the event this information is protected by the Federal Confidentiality of Alcohol and Drug Abuse Patient Records regulations: The Federal rules restrict any use of the information to criminally investigate or prosecute any alcohol or drug abuse patient.[facility] HospitalIn the event this information is protected by the Federal Confidentiality of Alcohol and Drug Abuse Patient Records regulations: The Federal rules restrict any use of the information to criminally investigate or prosecute any alcohol or drug abuse patient.[facility] HospitalIn the event this information is protected by the Federal Confidentiality of Alcohol and Drug Abuse Patient Records regulations: The Federal rules restrict any use of the information to criminally investigate or prosecute any alcohol or drug abuse patient.[facility] HospitalIn the event this information is protected by the Federal Confidentiality of Alcohol and Drug Abuse Patient Records regulations: The Federal rules restrict any use of the information to criminally investigate or prosecute any alcohol or drug abuse patient.[facility] HospitalIn the event this information is protected by the Federal Confidentiality of Alcohol and Drug Abuse Patient Records regulations: The Federal rules restrict any use of the information to criminally investigate or prosecute any alcohol or drug abuse patient.[facility] HospitalIn the event this information is protected by the Federal Confidentiality of Alcohol and Drug Abuse Patient Records regulations: The Federal rules restrict any use of the information to criminally investigate or prosecute any alcohol or drug abuse patient.[facility] HospitalIn the event this information is protected by the Federal Confidentiality of Alcohol and Drug Abuse Patient Records regulations: The Federal rules restrict any use of the information to criminally investigate or prosecute any alcohol or drug abuse patient.[facility] HospitalIn the event this information is protected by the Federal Confidentiality of Alcohol and Drug Abuse Patient Records regulations: The Federal rules restrict any use of the information to criminally investigate or prosecute any alcohol or drug abuse patient.[facility] HospitalIn the event this information is protected by the Federal Confidentiality of Alcohol and Drug Abuse Patient Records regulations: The Federal rules restrict any use of the information to criminally investigate or prosecute any alcohol or drug abuse patient.[facility] HospitalIn the event this information is protected by the Federal Confidentiality of Alcohol and Drug Abuse Patient Records regulations: The Federal rules restrict any use of the information to criminally investigate or prosecute any alcohol or drug abuse patient.[facility] HospitalIn the event this information is protected by the Federal Confidentiality of Alcohol and Drug Abuse Patient Records regulations: The Federal rules restrict any use of the information to criminally investigate or prosecute any alcohol or drug abuse patient.[facility] HospitalIn the event this information is protected by the Federal Confidentiality of Alcohol and Drug Abuse Patient Records regulations: The Federal rules restrict any use of the information to criminally investigate or prosecute any alcohol or drug abuse patient.[facility] HospitalIn the event this information is protected by the Federal Confidentiality of Alcohol and Drug Abuse Patient Records regulations: The Federal rules restrict any use of the information to criminally investigate or prosecute any alcohol or drug abuse patient.[facility] HospitalIn the event this information is protected by the Federal Confidentiality of Alcohol and Drug Abuse Patient Records regulations: The Federal rules restrict any use of the information to criminally investigate or prosecute any alcohol or drug abuse patient.[facility] HospitalIn the event this information is protected by the Federal Confidentiality of Alcohol and Drug Abuse Patient Records regulations: The Federal rules restrict any use of the information to criminally investigate or prosecute any alcohol or drug abuse patient.[facility] HospitalIn the event this information is protected by the Federal Confidentiality of Alcohol and Drug Abuse Patient Records regulations: The Federal rules restrict any use of the information to criminally investigate or prosecute any alcohol or drug abuse patient.[facility] HospitalIn the event this information is protected by the Federal Confidentiality of Alcohol and Drug Abuse Patient Records regulations: The Federal rules restrict any use of the information to criminally investigate or prosecute any alcohol or drug abuse patient.[facility] HospitalIn the event this information is protected by the Federal Confidentiality of Alcohol and Drug Abuse Patient Records regulations: The Federal rules restrict any use of the information to criminally investigate or prosecute any alcohol or drug abuse patient.[facility] HospitalIn the event this information is protected by the Federal Confidentiality of Alcohol and Drug Abuse Patient Records regulations: The Federal rules restrict any use of the information to criminally investigate or prosecute any alcohol or drug abuse patient.[facility] HospitalIn the event this information is protected by the Federal Confidentiality of Alcohol and Drug Abuse Patient Records regulations: The Federal rules restrict any use of the information to criminally investigate or prosecute any alcohol or drug abuse patient.[facility] HospitalIn the event this information is protected by the Federal Confidentiality of Alcohol and Drug Abuse Patient Records regulations: The Federal rules restrict any use of the information to criminally investigate or prosecute any alcohol or drug abuse patient.[facility] HospitalIn the event this information is protected by the Federal Confidentiality of Alcohol and Drug Abuse Patient Records regulations: The Federal rules restrict any use of the information to criminally investigate or prosecute any alcohol or drug abuse patient.[facility] HospitalIn the event this information is protected by the Federal Confidentiality of Alcohol and Drug Abuse Patient Records regulations: The Federal rules restrict any use of the information to criminally investigate or prosecute any alcohol or drug abuse patient.[facility] HospitalIn the event this information is protected by the Federal Confidentiality of Alcohol and Drug Abuse Patient Records regulations: The Federal rules restrict any use of the information to criminally investigate or prosecute any alcohol or drug abuse patient.[facility] HospitalIn the event this information is protected by the Federal Confidentiality of Alcohol and Drug Abuse Patient Records regulations: The Federal rules restrict any use of the information to criminally investigate or prosecute any alcohol or drug abuse patient.[facility] HospitalIn the event this information is protected by the Federal Confidentiality of Alcohol and Drug Abuse Patient Records regulations: The Federal rules restrict any use of the information to criminally investigate or prosecute any alcohol or drug abuse patient.[facility] HospitalIn the event this information is protected by the Federal Confidentiality of Alcohol and Drug Abuse Patient Records regulations: The Federal rules restrict any use of the information to criminally investigate or prosecute any alcohol or drug abuse patient.[facility] HospitalIn the event this information is protected by the Federal Confidentiality of Alcohol and Drug Abuse Patient Records regulations: The Federal rules restrict any use of the information to criminally investigate or prosecute any alcohol or drug abuse patient.[facility] HospitalIn the event this information is protected by the Federal Confidentiality of Alcohol and Drug Abuse Patient Records regulations: The Federal rules restrict any use of the information to criminally investigate or prosecute any alcohol or drug abuse patient.[facility] Reason for Visit (unrecogniz ed section and content) Reason Onset Date Comments Care 09/12/2021 Reason Comments Results + STD Reason Onset Date Comments Care 09/26/2021 Reason Onset Date Comments Care 10/11/2021 Reason Comments US Specialty Diagnoses / Procedures Referred By Carolina t Referred To Contact [facility] Diagnoses 33 weeks gestation of Uterine size-date discrepancy in third trimester History of macrosomia in infant in prior , currently in third trimester Procedures OBSTETRIC ULTRASOUND WHI US PREG UTERUS AFTER 1ST TRIMEST GESTATION Yusra Mora MD [address] [place] [address] [facility] [address] [place] [address] Referral ID Status Reason Start Date Expiration Date V isits Requested Visits Authorized [id number] Closed Auto-Generate d Referral 10/11/2021 10/11/2022 1 1 Reason Onset Date Comments Care 10/19/2021 Reason Comments Orders Reason Onset Date Comments Care 10/25/2021 Reason Onset Date Comments Care 10/30/2021 Reason Onset Date Comments Care 11/09/2021 Reason Comments Ob Delivery Note Reason Onset Date Comments Care 11/16/2021 Reason Comments vaginal pain Reason Comments Care Reason Comments nexplanon Specialty Diagnoses / Procedures Referred By Carolina Referred To Contact [facility] Diagnoses Nexplanon insertion Encounter for surveillance of implantable subdermal contraceptive Procedures NEXPLANON INSERTION ETONOGESTREL IMPLANT SYSTEM INSERT DRUG IMPLANT DEVICE REMOVAL NON-BIODEGRADABLE DRUG DELIVERY IMPLANT Karli Jacinto MD [address] [place] [address] [facility] [address] [place] [address] Referral ID Status Reason Start Date Expiration Date Visits Requested Visits Authorized [id number] Authorized Auto-Generat ed Referral 12/19/2021 06/08/2022 2 [...] Referred By Carolina t Referred To Contact [facility] Diagnoses ASCUS with positive high risk HPV cervical Procedures COLPOSCOPY COLPOSCOPY CERVIX BX CERVIX & ENDOCRV CURRETAGE Janelle Ennis, [employer] PLANT OPERATOR.EDITORIAL ASSISTANT [address] [place] [address] Phone: tel: fax: [address] [address] Referral ID Status Reason Start Date Expiration Date V isits Requested Visits Authorized [id number] Closed Auto-Generate d Referral 12/28/2024 12/28/2025 1 1 Reason Comments Trauma Possible broken toe on left foot x 1 day Reason Comments Nexplanon Removal Specialty Diagnoses / Procedures Referred By Contac t Referred To Contact [facility] Diagnoses Nexplanon removal Procedures NEXPLANON REMOVAL REMOVAL NON-BIODEGRADABLE DRUG DELIVERY IMPLANT Viky Stubbs APRN.[facility] [address] [place] [address] Phone: tel: fax: [facility] [address] [place] [address] Referral ID Status Reason Start Date Expiration Date V isits Requested Visits Authorized [id number] Closed Auto-Generate d Referral 04/30/2024 04/30/2025 1 1 Care Teams (unrecognized sec tion and content) Manager Interface Relationship Specialty Start Date End Date Maya Rodríguez MD [address] [place] [address] PCP - General Pediatrics 11/21/21 11/21/21 Team [...] Active Dr. Roberto Carlos Sesay MD Admit [facility] er, Attending Provider, Other Provider Active Team [...] BE BASED ON THE PRIMARY CLINICAL RECORDS. [employer] provides no warranty or guarantee of the accuracy or completeness of information in this document.
--- NOTE | 2025-05-20 19:25 | FAL_PTH ---
PATIENT: NATAN OSMAN LOC: [facility] U#:[id number] AGE/SX: 25/F ROOM: RE05/20/[address]: Dr. Karli Jacinto MD : 2000 BED: DIS: 05/20/2025 SPEC #: [id number] RECD: 05/23/25 07:39 STATUS: DEVIN REQ #: [id number] RONNI: 05/20/25 19:[address]: Karli Jacinto DEPT: SURGICAL PATHOLOGY RECD BY: Natan Melo ENTERED: 05/23/25 10:13 SP TYPE: ECTOPIC OTHR DR: No Primary Care Phys Tissues: A - ECTOPIC PREG Procedures: Surgery Specimen Level IV HEADER OPERATION: Laparoscopic, removal of ectopic PRE-OP DIAGNOSIS: Hemoperitoneum due to rupture of left tubal ectopic , Nexplanon insertion TISSUE SUBMITTED: A- Left fallopian tube, ectopic MICROSCOPIC DIAGNOSIS A. Left fallopian tube, ectopic , resection: - Fallopian tube containing immature chorionic villi consistent with ectopic products of conception. MICROSCOPIC DESCRIPTION Slides are reviewed. GROSS DESCRIPTION A. Received in formalin labeled with the patient's name and date of . Designated as left fallopian tube and ectopic is a pink-purple to red-richard, shaggy and disrupted fallopian tube collectively measuring 5.9 x 3.8 x 1.6 cm. There is a 0.4 cm possible paratubal cyst. Definitive fimbria is not grossly appreciated. Possible pike chorionic villi identified. No parts are present. Data Integration Developer sections are submitted as follows: A1-A2: Possible chorionic villiA3: Possible paratubal cyst NM 05/23/2025 CPT:96861
--- NOTE | 2025-05-20 19:46 | PCM.PRE.AN2 ---
ASA Classification* ASA Classification ASA Classification: 2 and E Assessment & Plan Anesthesia* Anesthesia Assessment Anesthesia Assessment: Discussed sedation and/or anesthesia options, risks, benefits, and alternatives with patient/parents/legal guardian/POA. Questions invited. The patient/parents/legal guardian/POA seems to understand and agrees to proceed with anesthesia plan. Reviewed the physical assessment, medical history, allergy history and patient home medications list prior to surgery/procedure/anesthetic and documented any changes. Performed airway and anesthesia risk assessments. Anesthesia Type Anesthesia Type: General Anesthesia Focused Assessment* Temperature: 97.8 F Pulse Rate: 87 Blood Pressure: 128/89 Respiratory Rate: 16 Pulse Ox: 99 Airway Assessment Mouth opens: >3 cm Mallampati Score: II Labs Anesthesia Preop lab: CBC WBC, (4.4-11.0) 11.3 K/mm3 H Today, 17:58 RBC, (4.2-5.4) 4.01 M/mm3 L Today, 17:58 Hgb, (12.0-15.0) 12.3 g/dL Today, 17:58 Hct, (37-47) 36.7 % L Today, 17:58 Plt Count, (150-450) 240 K/mm3 Today, 17:58 CHEMISTRY Potassium, (3.3-5.1) 3.8 mmol/L 04/21/25, 15:12 Sodium, (133-145) 139 mmol/L 04/21/25, 15:12 BUN, (4-19) 7 mg/dL 04/21/25, 15:12 Creatinine, (0.70-1.20) 0.86 mg/dL 04/21/25, 15:12 Glucose, (70-99) 102 mg/dL H 04/21/25, 15:12 POC Glucose, (70-110) 85 mg/dL 02/20/18, 13:37 TSH, (0.358-3.74) 0.58 uIU/mL 10/02/15, 12:00 COAG HCG, Quant, (<9 non-preg) 7564 mIU/mL H Today, 12:41 Urine Test Positive Negative H Today, 12:41 Pre-Assessment Diagnosis/Proposed Procedure Planned Operative Procedure(s): Removal ectopic , laproscopic Anesthesia History 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 When Was Last Pacemaker Check QUESTION #4 FULL TEXT: You/Your Family Experience fever (hyperthermia) with Anesthesia Last Oral Intake Last Oral intake: Last Oral Intake NPO since Meds taken in AM with sips of water? Meds patient instructed to take am of surgery PONV PONV - java developer analyst: PONV - java developer analyst Female HX of Motion Sickness HX of N/V After Surgery Non-Smoker Duration of Surgery greater than 60 minutes Number of Risk Factors PONV Score Height & Weight Height & Weight: Anesthesia: Height & Weight Height 5 ft 3 in 05/20/25 18:38 Weight: 61.598 kg 05/20/25 18:38 Body Mass Index (BMI) 24.0 05/20/25 18:38 Respiratory Assessment Respiratory Assessment - java developer analyst: Respiratory Tract Infection Hx - java developer analyst Hx Respiratory Tract Infection No 05/20/25 18:38 STOP Sleep Apnea STOP Sleep Apnea - java developer analyst: STOP Sleep Apnea - java developer analyst Hx Hypertension No 05/20/25 18:38 Hx Sleep Apnea No 05/20/25 18:38 CPAP BIPAP Do you snore loudly (louder No 05/20/25 18:38 than talking or can be heard Do you often feel tired/ No 05/20/25 18:38 fatigued/ sleepy during daytime? Has anyone observed you stop No 05/20/25 18:38 breathing during sleep? STOP Results Negative 05/20/25 18:38 QUESTION #5 FULL TEXT : Do you snore loudly (louder than talking or can be heard through closed doors)? 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 Specify any problems Hx of Preganancy in last 3 Months Nurse Filling Out Transfusion & Questions: Date: Time: Patient unable to answer at this time (ie. confused, unrespo /Reproduction History /Reproductive History - java developer analyst: /Reproductive Hx- java developer analyst Hx Now Yes: eptopic 05/20/25 18:38 Gestational Age (in weeks): EDC: Hx Hx Para Hx Section SAB No 05/20/25 18:38 Does the father of the baby or his family experience fever w Father of the baby Malignant Hypertension history comment Active Medications Active Medications: Current Medications Generic Name Dose Route Start Last Admin Trade Name Freq PRN Reason Stop Dose Admin Lactated Ringer's 1,000 mls @ 999 mls/hr 05/20/25 19:45 IV 05/20/25 20:45 .Q1H1M SHAAN PFSH Medical History HPV (human papilloma virus) infection Injury of head and neck Asthma Anxiety Depression GERD (gastroesophageal reflux disease) Smoker Diverticulitis Chlamydia infection affecting Nicotine use Marijuana use Migraines Asthma ADHD Depression with anxiety Home Medications ?Medication ?Instructions ?Recorded ?Last Taken ?Type mb-kcf-[id number] 180 mcg-om3 32.5 2 tab PO DAILY 04/21/25 04/21/25 History gf-puh-ewb-other [id number]-febq chew tablet ( Gummies (DHA-EPA)) Allergy/AdvReac Type Severity Reaction Status Date / Time No Known Allergies Allergy Verified 05/20/25 17:29 Family History Father Hypertrophic cardiomyopathy Grandfather Hypertrophic cardiomyopathy Surgical History History of laparoscopy H/O partial resection of colon History of appendectomy History of tonsillectomy Social History housing: house Smoking Status: Current some day smoker tobacco type: e-cigarettes alcohol intake: current substance use type: marijuana Review of Systems (Anesthesia) ROS Narrative System reviewed and no additional complaints, except as documented.
--- NOTE | 2025-05-20 19:50 | PCM.DC ---
Discharge Instructions DC O2, CPAP, BIPAP needs Home O2 Discharge instructions: No Dressing / Incision Discharge Activity: May Drive (in 1-2 days as tolerated when not taking pain medication) May shower in (days): 1 May resume sexual activity in: 1 week Additional Activity Instructions:: Ambulate often the next week after surgery. Nothing in the vagina for 7 days Dressing / Incision Call your doctor if your incision/area has: Continuous Slow Oozing, Sudden Increased Bleeding, Increased Pain/ Swelling, Increased Redness and Foul Smelling Discharge Call your doctor if you observe: Fever of 101 or Higher Remove Dressing in: 2 days (off of your arm and your abdomen) Cleanse incision/area with: Soap & Water Follow Up Care Please Follow Up With: Karli Jacinto MD When: Call [phone] or send a [employer] message to schedule a follow in 1-2 weeks or as needed. Test Results: Test results from this visit will be discussed in further detail at your follow-up appointment, if applicable. Discharge Plan Admission Primary Reason for Your Visit: Left ectopic Attending Provider: Karli Jacinto Primary Care Provider: Care PhysicianJoi Primary Instructions Print Language: Colombian Discharge Orders/Prescriptions Prescriptions: New acetaminophen [Acetaminophen Extra Strength] 500 mg tablet 1,000 mg PO Q6H PRN (Reason: fever or pain) 30 Days Qty: 60 1RF ibuprofen 600 mg tablet 600 mg PO Q6H PRN (Reason: Pain) 30 Days Qty: 60 1RF oxycodone 5 mg tablet 5 mg PO Q6H PRN PRN (Reason: severe pain) 7 Days Qty: 6 0RF No Action Gummies (DHA-EPA) 180 mcg-32.5mg- 25 mg-7.5 mg tablet,chewable 2 tab PO DAILY Referrals / Follow Up: Care Physician,No Primary [Primary Care Provider, Medical] Disposition Disposition (needs filled in before D/C Order can be placed): Home, Self Care
--- NOTE | 2025-05-20 19:52 | ED.RN ---
1939: REPORT CALLED TO SURGERY NURSE CHARITY AT THIS TIME.
[2025-05-20] MEDS: Midazolam 2 MG/2 ML Syringe IV (20:08)
[2025-05-20] MEDS: fentaNYL 100 MCG/2 ML Ampul IV (20:09)
--- NOTE | 2025-05-20 20:56 | PCM.OPRPT ---
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 Fax Machine Operator: Reema Harp Tasks completed by sound assistant: Closing, Trocar and Retracting Additional medical administrative assistant?: No Type of Anesthesia: General RN Documented Start/Stop Times: Operation Date: 05/20/25 19:25 <No data on this case meets the specified criteria> Procedure Start Time: 20:26 Procedure Stop Time: 21:08 Select all DRAINS/GRAFTS/IMPLANTS that apply: Implanted device Implanted device details: NExplanon Estimated Blood Loss: 20 Fluids Replaced: 800 cc LR Specimen collected: Yes Description of specimen(s) removed: left tube and ectopic Description of surgery: The patient was taken to the operating room where she was prepped and draped in the dorsolithotomy position. A weighted speculum was placed in the vagina and the anterior lip of the cervix was grasped with a tenaculum. The Vesna uterine manipulator was placed and the remainder of the instruments were removed from the vagina. Attention was turned to the abdomen. All port sites were infiltrated with 0.5% Marcaine before skin incisions were made. A 5 mm left upper quadrant incision was made. The anterior abdominal wall was tented up with 2 towel clamps while a 5 mm blade less trocar and sleeve were directly inserted with the Visiport. Intraperitoneal placement was confirmed with the laparoscope. The pneumoperitoneum was created and the underlying abdominal contents were intact. The patient was placed in Trendelenburg. Right and left lower quadrant ports were placed under direct visualization lateral to the inferior epigastric vessels. The bowel was swept away and the above findings were noted. Some adhesions of the epiploica of the descending colon were bluntly removed from the tube and ovary. The ovary was slightly adhered to the sidewall as well and this was bluntly mobilized. The tube began to actively bleed immediately with any manipulation. The tube was adherent to the ovary densely. The tube was clogged and some blood was extruding from the fimbria. Decision was made to would need to be removed because it was actively bleeding. The antimesenteric portion was clamped sealed and transected and it was divided off the ovary trying to ensure that I do not take any ovarian tissue. It was taken to the insertion at the cornual edge of the uterus and that was clamped sealed and transected and hemostasis was noted. Suction automatic dry starch operator was used to irrigate the area no active bleeding was noted. Hemoblast was placed over the operative site. The tube and ectopic were then placed in the 5 mm Endo Catch bag and brought out through the left upper quadrant incision. Again the pedicles were hemostatic. The lateral ports were removed after the pneumoperitoneum was released. Should be noted that the suction automatic dry starch operator was used to remove as much of the blood as possible from the posterior cul-de-sac. The skin incisions were then closed by the HEALTH SAFETY SPECIALIST with me present in the operating suite. The vaginal instruments were removed and the vaginal sweep was completed by me. Her left arm was then placed out laterally in feel goalpost position. Nexplanon was then placed in the usual sterile fashion inferior to the triceps muscle proximally 8 cm cephalad from the lateral epicondyle of the elbow. A Band-Aid was placed over the incision and it was pressure wrapped. The procedure was performed by me with assistance other than as dictated above. All sponge and needle counts were correct and the patient was taken to the recovery room in stable condition. Surgical Findings: left ectopic adhered to ovary and epiploica Complications Complications: No Admit VTE Documentation VTE Present on Admission: No VTE Mechan Device Prophylaxis: SCD's VTE Pharm Prophylaxis ordered?: No Reason prophylaxis not ordered: Procedure Not Indicated
--- NOTE | 2025-05-20 21:14 | PCM.POST.ANE ---
Anesthesia: Postop Eval I Current Vital Signs Temperature: 97 F Pulse Rate: 110 Blood Pressure: 122/60 Respiratory Rate: 18 Pulse Ox: 99 Oxygen Delivery Method: Room Air Assessment Airway patent: Yes Spontaneous unlabored respirations: Yes Mental status: Awake nausea: Yes Vomiting: No Anesthesia Complication: No Fluid Hydration Crystalloid volume administer (ml): 550 Total IV fluid infused: 550 Progress Note Anesthesia document: Postop Eval 1 completed: Yes
--- NOTE | 2025-05-20 21:25 | PCM.POSTANE2 ---
Anesthesia Postop Eval I Sum Postop Eval Completion status Anesthesia document: Postop Eval 1 completed: Yes Anesthesia Postop Eval I Summary Anesthesia Postop Eval I Summary: Anesthesia Postop Eval I: Assessment Summary Airway patent Yes 05/20/25 21:15 Spontaneous unlabored Yes 05/20/25 21:15 respirations Mental status Awake 05/20/25 21:15 nausea Yes 05/20/25 21:15 Vomiting No 05/20/25 21:15 Anesthesia Postop Eval I: Fluid Summary Crystalloid volume administer 550 05/20/25 21:15 (ml) Colloids volume administered ( ml) Blood Product volume administered (ml) Total IV fluid infused 550 05/20/25 21:15 Anesthesia Postop Eval I: Summary Notes Anesthesia Complication No 05/20/25 21:15 Anesthesia Complication Comment: Post-operative progress note Anesthesia: Postop Eval II Evaluation Mental status: Awake Pain Level: 2 nausea: No Vomiting: No
== END 2025-05-20 22:26 | disposition home or self-care (01) ==
LOC: ED 18:11 → SDC 18:58 → ACINP 18:58
PROVIDERS: Emergency Provider Emergency Medicine; Visit Provider Obstetrics & Gynecology
PROC: 10T24ZZ Resection of Products of Conception, Ectopic, Percutaneous Endoscopic Approach (ICD-10-PCS; CPT 59150; principal; 2025-05-20 19:10)
DX: O08.1 Delayed or excessive hemorrhage following ectopic and molar pregnancy (principal); O99.611 Diseases of the digestive system complicating pregnancy, first trimester; K66.1 Hemoperitoneum; O99.331 Smoking (tobacco) complicating pregnancy, first trimester; O00.102 Left tubal pregnancy without intrauterine pregnancy; O26.891 Other specified pregnancy related conditions, first trimester; R10.22 Pelvic and perineal pain left side; F17.290 Nicotine dependence, other tobacco product, uncomplicated; Z30.017 Encounter for initial prescription of implantable subdermal contraceptive; Z30.09 Encounter for other general counseling and advice on contraception
CPT/HCPCS: 58661; 11981; 00840; 76817; 81001; 81025; 84702; 85025; 87077; 87086; 87088; 87186; 88305; 96374; 99283; 99284; A4216; J2405